=== PATIENT | female | born 1980 | race Caucasian/White ===

== ENCOUNTER 2016-08-21 01:56 | Observation (INO) | payer OTHER ==
[2016-08-21 02:37] LABS: Basophils # (A) 0.1 k/uL (0-0.2); Basophils % (A) 2 %; CH 27.8; CHCM 33.2; Eosinophils # (A) 0.1 k/uL (0-0.7); Eosinophils % (A) 2 %; HCT 44.8 % (34.0-46.0); HGB 14.4 gm/dL (11.4-16.0); Luc # (Auto) 0.22; Luc % (Auto) 4; Lymphocytes # (A) 0.8 k/uL (1.0-4.8); Lymphocytes % (A) 14 %; MCHC 32.1 g/dL (31.0-37.0); Mean Platelet Volume 9.2; Monocytes # (A) 0.3 k/uL (0-1.0); Monocytes % (A) 6 %; Neutrophils % (A) 73 %; RBC 5.33 m/uL (3.80-5.40); RDW 15.1 % (11.5-15.5); WBC 5.5 k/uL (3.8-10.6); WBC (Perox) 5.19
--- NOTE | 2016-08-21 02:43 | ED ---
Abdominal Pain HPI <Victoriano Bourgeois - Last Filed: 08/21/16 03:23> - General Source: patient, RN notes reviewed Mode of arrival: EMS Limitations: no limitations <Ashleigh Packer - Last Filed: 08/21/16 03:55> - General Chief Complaint: Abdominal Pain Stated Complaint: abd pain Time Seen by Provider: 08/21/16 02:10 - History of Present Illness Initial Comments: 35-year-old female presents to the emergency department with a chief complaint of abdominal pain. Patient states she has this right-sided abdominal pain. 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 Patient states last time she saw her GI doctor was about one year ago on her belly slowly been increasing in size. Patient states that she started noticing increased pain so she was concerned. Patient states beginning worse for the last few weeks. Patient states there is been no new falls traumas or injuries. Patient denies any fevers any nausea or vomiting. Patient states that she was concerned due to his increased symptoms that she thought that she should be evaluated.Patient denies any recent fever, chills, shortness of breath, chest pain, back pain, nausea vomiting, numbness or tingling, dysuria or hematuria, constipation or diarrhea, headaches or visual changes, or any other current symptoms. (Ashleigh Packer) - Related Data Home Medications Medication Instructions Recorded Confirmed Albuterol Inhaler [Ventolin Hfa 1 - 2 puff INHALATION RT-Q6H PRN 05/17/14 Inhaler] Levothyroxine Sodium [Synthroid] 75 mcg PO DAILY 07/09/15 08/21/16 Aspirin [Adult Low Dose Aspirin EC] 81 mg PO DAILY 07/12/15 08/21/16 Previous Rx's Medication Instructions Recorded Metoprolol Tartrate 12.5 mg PO BID #60 tab 03/23/15 Furosemide [Lasix] 40 mg PO BID@0900,1600 #60 tab 07/11/15 Spironolactone 50 mg PO BID #60 tablet 07/11/15 Allergies Allergy/AdvReac Type Severity Reaction Status Date / Time warfarin sodium Allergy Unknown Verified 08/21/16 02:08 [From Coumadin] peas AdvReac Diarrhea Verified 08/21/16 02:08 Review of Systems ROS Other: All systems not noted in ROS Statement are negative. <Victoriano Bourgeois - Last Filed: 08/21/16 03:23> ROS Other: All systems not noted in ROS Statement are negative. <Ashleigh Packer - Last Filed: 08/21/16 03:55> ROS Statement: Those systems with pertinent positive or pertinent negative responses have been documented in the HPI. 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 History of Any Multi-Drug Resistant Organisms: None Reported Past Surgical History: Coronary Bypass/CABG Additional Past Surgical History / Comment(s): D&C in November 2013, paracentesis, patient states her liver "went bad" after a miscarriage in 2013, Fontan 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 7 Past Anesthesia/Blood Transfusion Reactions: No Reported Reaction Past Psychological History: No Psychological Hx Reported Smoking Status: Never smoker Past Alcohol Use History: None Reported Past Drug Use History: None Reported - Past Family History Mother Family Medical History: Asthma, Cancer, Hyperlipidemia, Hypertension Additional Family Medical History / Comment(s): Mother had breast CA at age 52 Brother(s) Family Medical History: Asthma Father Family Medical History: Asthma <Ashleigh Packer - Last Filed: 08/21/16 03:55> General Exam Limitations: no limitations General appearance: alert, in no apparent distress Head exam: Present: atraumatic, normocephalic, normal inspection ENT exam: Present: normal exam, mucous membranes moist Neck exam: Present: normal inspection. Absent: tenderness, meningismus, lymphadenopathy Respiratory exam: Present: normal lung sounds bilaterally. Absent: respiratory distress, wheezes, rales, rhonchi, stridor Cardiovascular Exam: Present: regular rate, normal rhythm, normal heart sounds. Absent: systolic murmur, diastolic murmur, rubs, gallop, clicks GI/Abdominal exam: Present: distended, other (Diffuse ascites) Extremities exam: Present: normal inspection, full ROM, normal capillary refill. Absent: tenderness, pedal edema, joint swelling, calf tenderness Back exam: Present: normal inspection Neurological exam: Present: alert, oriented X3, CN II-XII intact. Absent: motor sensory deficit Psychiatric exam: Present: normal affect, normal mood Skin exam: Present: warm, dry, intact, normal color. Absent: rash <Ashleigh Packer - Last Filed: 08/21/16 03:55> Medical Decision Making - Lab Data Result diagrams: 08/21/16 02:26 08/21/16 02:26 <Victoriano Bourgeois - Last Filed: 08/21/16 03:23> - Lab Data Result diagrams: 08/21/16 02:26 08/21/16 02:26 - Radiology Data Radiology results: report reviewed, image reviewed <Ashleigh Packer - Last Filed: 08/21/16 03:55> - Medical Decision Making Patient reevaluated by myself, Dr. Bourgeois. Patient does have abdominal distention and ascites. Patient has mild discomfort in the right upper abdomen. Patient states she recently saw Dr. Marino and has been planning to see her twisting operator. Case was discussed in detail with Dr. Farah, who will admit for Dr. Marino with GI consult. (Victoriano Bourgeois) 35 as well as emergency department with a chief complaint of ascites with a distended abdomen. At this time due to the patient's continued ascites we will admit to Dr. Marino and we will consult on-call GI Dr. Wilkes. This is discussed the patient and she is in agreement. (Ashleigh Packer) - Lab Data Lab Results 08/21/16 08/21/16 Range/Units 02:26 02:26 WBC 5.5 (3.8-10.6) k/uL RBC 5.33 (3.80-5.40) m/uL Hgb 14.4 (11.4-16.0) gm/dL Hct 44.8 (34.0-46.0) % MCV 84.0 (80.0-100.0) fL MCH 27.0 (25.0-35.0) pg MCHC 32.1 (31.0-37.0) g/dL RDW 15.1 (11.5-15.5) % Plt Count 169 (150-450) k/uL Neutrophils % 73 % Lymphocytes % 14 % Monocytes % 6 % Eosinophils % 2 % Basophils % 2 % Neutrophils # 4.0 (1.3-7.7) k/uL Lymphocytes # 0.8 L (1.0-4.8) k/uL Monocytes # 0.3 (0-1.0) k/uL Eosinophils # 0.1 (0-0.7) k/uL Basophils # 0.1 (0-0.2) k/uL Sodium 140 (137-145) mmol/L Potassium 4.1 (3.5-5.1) mmol/L Chloride 100 (98-107) mmol/L Carbon Dioxide 24 (22-30) mmol/L Anion Gap 16 mmol/L BUN 15 (7-17) mg/dL Creatinine 1.00 (0.52-1.04) mg/dL Est GFR (MDRD) Af Amer >60 (>60 ml/min/1.73 sqM) Est GFR (MDRD) Non-Af >60 (>60 ml/min/1.73 sqM) Glucose 86 (74-99) mg/dL Calcium 9.5 (8.4-10.2) mg/dL Total Bilirubin 1.9 H (0.2-1.3) mg/dL AST 34 (14-36) U/L ALT 30 (9-52) U/L Alkaline Phosphatase 93 (38-126) U/L Total Protein 8.7 H (6.3-8.2) g/dL Albumin 4.7 (3.5-5.0) g/dL Amylase 50 (30-110) U/L Lipase 55 (23-300) U/L Disposition <Victoriano Bourgeois - Last Filed: 08/21/16 03:23> Time of Disposition: 03:25 Decision Date: 08/21/16 Decision Time: 03:25 <Ashleigh Packer - Last Filed: 08/21/16 03:55> Clinical Impression: Ascites, Cirrhosis, Portal hypertension Disposition: ADMITTED IP TO THIS [facility] Condition: Stable Referrals: Devaughn Marino MD [Primary Care Provider] - 1-2 days
[2016-08-21 02:50] LABS: ALT 30 U/L (9-52); AST 34 U/L (14-36); Alkaline Phosphatase 93 U/L (38-126); Amylase 50 U/L (30-110); Anion Gap 16 mmol/L; Blood Urea Nitrogen 15 mg/dL (7-17); Calcium 9.5 mg/dL (8.4-10.2); Carbon Dioxide 24 mmol/L (22-30); Chloride 100 mmol/L (98-107); Glucose 86 mg/dL (74-99); Non-African American GFR(MDRD) >60 (>60 ml/min/1.73 sqM); Potassium 4.1 mmol/L (3.5-5.1); Sodium 140 mmol/L (137-145); Total Bilirubin 1.9 mg/dL (0.2-1.3); Total Protein 8.7 g/dL (6.3-8.2)
--- NOTE | 2016-08-21 02:59 | CT ---
EXAMINATION TYPE: CT abdomen pelvis wo con DATE OF EXAM: 08/21/2016 2:45 AM COMPARISON: 03/21/2015 HISTORY: Abdominal pain CT DLP: 286.00 mGycm Automated exposure control for dose reduction was used. TECHNIQUE: Helical acquisition of images was performed from the lung bases through the pelvis. FINDINGS: LUNG BASES: Minor atelectatic changes are suggested in both lung bases. There is evidence of moderate ascites fluid in the abdomen and pelvis surrounding the liver and splee n with mild increase in the ascites fluid since previous study. Recanalized umbilical vein is again n oted. LIVER/GB: Cirrhosis changes of liver are suggested of chronic nature. There is possibility of portal hypertension changes. Gallbladder is not well visualized. PANCREAS: No significant abnormality is seen. SPLEEN: Mild splenomegaly is noted spleen measuring approximately 13.9 cm in the CC dimension in the coronal image 61. ADRENALS: No significant abnormality is seen. KIDNEYS: No significant abnormality is seen. RETROPERITONEAL ADENOPATHY: None visualized REPRODUCTIVE ORGANS: No significant abnormality is seen URINARY BLADDER: No significant abnormality is seen. PELVIC ADENOPATHY: None visualized. OSSEOUS STRUCTURES: No significant abnormality is seen. BOWEL: No significant abnormality is seen. OTHER: IMPRESSION: 1. THERE IS MODERATE ASCITES FLUID IN THE ABDOMEN AND PELVIS SLIGHTLY INCREASED SINCE PREVIOUS STUDY. 2. CIRRHOSIS CHANGES OF LIVER WITH PORTAL HYPERTENSION CHANGES. 3. Splenomegaly.
[2016-08-21] MEDS ORDERED: ONDANSETRON 4 MG/2 ML VIAL IVP PRN (03:25)
[2016-08-21] MEDS ORDERED: NALOXONE 0.4 MG/ML 1 ML VIAL IV PRN (03:25)
[2016-08-21] MEDS: IBUPROFEN 400 MG TAB PO PRN ×2 (03:55→11:51)
[2016-08-21] MEDS: SODIUM CHLORIDE 0.9% 1,000 ML IV SCH (04:30)
[2016-08-21 04:41] VITALS: BMI 22.3
[2016-08-21] MEDS ORDERED: SODIUM CHLORIDE 0.9% 1,000 ML IV ONE (07:47)
[2016-08-21] MEDS ORDERED: ALBUMIN HUMAN 25% 50 ML in EMPTY BAG 1 BAG IVPB PRN (07:48)
[2016-08-21 08:24] LABS: INR 1.3 (<1.1); Prothrombin Time 12.5 sec (9.0-12.0)
[2016-08-21] MEDS ORDERED: ALBUTEROL NEBULIZED 2.5 MG/3 ML INHALATION PRN (08:49)
[2016-08-21] MEDS: LEVOTHYROXINE 100 MCG TAB PO SCH (09:40)
--- NOTE | 2016-08-21 10:04 | US ---
EXAMINATION TYPE: US abdomen limited DATE OF EXAM: 08/21/2016 9:45 AM COMPARISON: CT abdomen and pelvis earlier this morning. CLINICAL HISTORY: assess fluid. Cirrhosis TECHNOLOGIST IMPRESSION: Moderate amount of ascites noted, all 4 quadrants scanned Limited abdominal ultrasound to assess for ascites confirms moderate to large amount of fluid most pr ominent in the left lower quadrant, findings correlate with CT exam earlier today. IMPRESSION: As above.
--- NOTE | 2016-08-21 12:04 | P.HPIM ---
History of Present Illness H&P Date: 08/21/16 Chief Complaint: Abdominal distention This is a 34-year-old female with complex past medical history noted below who presented to the hospital with worsening abdominal distention and pain. Patient is been doing fairly well up until a few days ago when she noted that her abdomen is getting more distended. She said that she's been having more pain that is mostly generalized all over her abdomen. She was also nauseated and vomited once yesterday. She denies any diarrhea. She reported taking her medication as prescribed. She denies fevers or chills. Review of Systems Review of system: 14 points review of systems were obtained and were negative except to what were mentioned in the HPI. 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 History of Any Multi-Drug Resistant Organisms: None Reported Past Surgical History: Coronary Bypass/CABG Additional Past Surgical History / Comment(s): D&C in November 2013, paracentesis, patient states her liver "went bad" after a miscarriage in 2013, Fontan 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 7 Past Anesthesia/Blood Transfusion Reactions: No Reported Reaction Past Psychological History: No Psychological Hx Reported Smoking Status: Never smoker Past Alcohol Use History: None Reported Past Drug Use History: None Reported - Past Family History Mother Family Medical History: Asthma, Cancer, Hyperlipidemia, Hypertension Additional Family Medical History / Comment(s): Mother had breast CA at age 52 Brother(s) Family Medical History: Asthma Father Family Medical History: Asthma Medications and Allergies Home Medications Medication Instructions Recorded Confirmed Type Albuterol Inhaler [Ventolin Hfa 1 - 2 puff INHALATION RT-Q6H PRN 05/17/14 History Inhaler] Levothyroxine Sodium [Synthroid] 100 mcg PO DAILY 07/09/15 08/21/16 History Aspirin [Adult Low Dose Aspirin EC] 81 mg PO DAILY@1400 07/12/15 08/21/16 History Ibuprofen [Motrin] 200 mg PO Q6HR PRN 08/21/16 08/21/16 History Spironolactone 50 mg PO DAILY@1400 08/21/16 08/21/16 History Allergies Allergy/AdvReac Type Severity Reaction Status Date / Time warfarin sodium Allergy Unknown Verified 08/21/16 07:59 [From Coumadin] peas AdvReac Diarrhea Verified 08/21/16 07:59 Physical Exam Vitals: Vital Signs Temp Pulse Pulse Pulse Resp BP BP 08/21/16 08:28 120 H 89/62 08/21/16 07:40 120 H 72/49 08/21/16 07:00 96.5 F L 120 H 20 80/45 08/21/16 05:00 98.0 F 92 08/21/16 04:49 16 08/21/16 04:42 97.5 F L 122 H 16 88/68 08/21/16 03:54 80 16 86/54 Pulse Ox 08/21/16 08:28 08/21/16 07:40 92 L 08/21/16 07:00 91 L 08/21/16 05:00 08/21/16 04:49 08/21/16 04:42 92 L 08/21/16 03:54 97 Intake and Output 08/20/16 08/21/16 08/21/16 22:59 06:59 14:59 Other: Voiding Method Toilet Toilet Weight 50 kg General: The patient is awake and alert, in no distress, and does not appear acutely ill. Eye: extra-ocular movements are intact; there is normal conjunctiva bilaterally. . Neck: The neck is supple, there is no tenderness or JVD. Cardiovascular: Normal S1-S2, no S3-S4, no murmurs. Respiratory: Lungs clear to auscultation bilaterally with no wheezes rhonchi or rales. Gastrointestinal: Abdomen is distended with evidence of large ascites and fluid shifting Musculoskeletal: Normal ROM, no tenderness, There is no pedal edema. Neurological: There are no obvious motor or sensory deficits. Speech is normal. Skin: Skin is warm and dry and no rashes or lesions are noted. 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 She is currently awaiting paracentesis to rule out SBP. She reports compliance with her medication at home and was counseled extensively about that. All her other medical problems are stable at this point. I would wait for fluid analysis to make decision about antibiotic treatment if needed. Allow patient to have liquid diet and advance as tolerated. (1) Ascites (2) Congenital heart anomaly (3) H/O aortic valve repair (4) Hypothyroid (5) Atrial flutter (6) Cardiac cirrhosis (7) Legal guardianship (8) Tricuspid atresia Patient is known to have chronic low blood pressure and her systolic usually runs in the 80s and 90s.
[2016-08-21] MEDS: ASPIRIN 81 MG CHEW PO SCH (14:00)
--- NOTE | 2016-08-21 15:38 | US ---
EXAMINATION TYPE: US paracentesis abd w/image DATE OF EXAM: 08/21/2016 3:28 PM CLINICAL HISTORY: Ascites The procedure was discussed with the patient. The risks, complications, benefits, and alternatives we re discussed and any questions were answered. Informed consent was obtained. The patient was placed s upine on the ultrasound table and prepped and draped in the usual sterile fashion. All elements of maximal barrier technique were utilized. Under ultrasound guidance, access into the right lower quadrant was obtained, via the paracentesis catheter system and direct ultrasound guidanc e. Approximately 3.8 liters of straw-colored fluid was removed. The patient was stable throughout the pr ocedure and remained stable upon discharge from Department of Radiology. IMPRESSION: Successful therapeutic paracentesis under ultrasound guidance.
[2016-08-21 16:57] LABS: RBC, Body Fluid 1061 /uL
[2016-08-22] MEDS: METOPROLOL TARTRATE 25 MG TAB PO SCH ×2 (01:01→09:39)
[2016-08-22] MEDS: SODIUM CHLORIDE 0.9% 1,000 ML IV SCH (06:26)
[2016-08-22] MEDS: LEVOTHYROXINE 100 MCG TAB PO SCH (06:48)
[2016-08-22 08:05] LABS: Basophils % (A) 1 %; CHCM 31.3; Eosinophils # (A) 0.1 k/uL (0-0.7); Eosinophils % (A) 3 %; HCT 41.3 % (34.0-46.0); HDW 2.66; HGB 12.9 gm/dL (11.4-16.0); Hypochromasia Slight; Luc # (Auto) 0.11; Luc % (Auto) 3; Lymphocytes # (A) 0.4 k/uL (1.0-4.8); Lymphocytes % (A) 12 %; MCH 27.1 pg (25.0-35.0); MCHC 31.2 g/dL (31.0-37.0); MCV 86.9 fL (80.0-100.0); Mean Platelet Volume 8.1; Monocytes # (A) 0.2 k/uL (0-1.0); Monocytes % (A) 6 %; Neutrophils % (A) 76 %; RBC 4.75 m/uL (3.80-5.40); RDW 14.8 % (11.5-15.5); WBC 3.9 k/uL (3.8-10.6); WBC (Perox) 4.03
[2016-08-22 08:16] LABS: ALT 30 U/L (9-52); AST 19 U/L (14-36); Alkaline Phosphatase 61 U/L (38-126); Anion Gap 9 mmol/L; Blood Urea Nitrogen 14 mg/dL (7-17); Calcium 7.9 mg/dL (8.4-10.2); Carbon Dioxide 21 mmol/L (22-30); Chloride 107 mmol/L (98-107); Glucose 71 mg/dL (74-99); Non-African American GFR(MDRD) >60 (>60 ml/min/1.73 sqM); Potassium 3.9 mmol/L (3.5-5.1); Sodium 137 mmol/L (137-145); Total Bilirubin 1.1 mg/dL (0.2-1.3); Total Protein 5.8 g/dL (6.3-8.2)
[2016-08-22 09:48] VITALS: RESP 16; TEMP 96.6
[2016-08-22 12:56] VITALS: BP 83/53; PULSE 128
[2016-08-22] MEDS: ASPIRIN 81 MG CHEW PO SCH (12:57)
[2016-08-22] MEDS: IBUPROFEN 400 MG TAB PO PRN (14:04)
--- NOTE | 2016-08-22 14:08 | P.DS ---
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 She was admitted to the hospital and underwent therapeutic paracentesis with approximately 3.8 L removed and no evidence of SBP. Patient will be discharged home in a stable condition. She was advised about the importance of medication compliance. (1) Ascites (2) Congenital heart anomaly (3) H/O aortic valve repair (4) Hypothyroid (5) Atrial flutter (6) Cardiac cirrhosis (7) Legal guardianship (8) Tricuspid atresia Patient Condition at Discharge: Stable Plan - Discharge Summary Discharge Medication List Albuterol Inhaler [Ventolin Hfa Inhaler] 1 - 2 puff INHALATION RT-Q6H PRN [History] Metoprolol Tartrate 12.5 mg PO BID #60 tab 03/23/15 [Rx] Levothyroxine Sodium [Synthroid] 100 mcg PO DAILY 07/09/15 [History] Furosemide [Lasix] 40 mg PO BID@0900,1600 #60 tab 07/11/15 [Rx] Aspirin [Adult Low Dose Aspirin EC] 81 mg PO DAILY@1400 07/12/15 [History] Ibuprofen [Motrin] 200 mg PO Q6HR PRN 08/21/16 [History] Spironolactone 50 mg PO DAILY@1400 08/21/16 [History] Follow up Appointment(s)/Referral(s): Devaughn Marino MD [Primary Care Provider] - 1-2 days Discharge Disposition: HOME SELF-CARE
[2016-08-22] MEDS ORDERED: BUTA/APAP/CAF/COD 50-325-40-30 CAP PO STA (14:49)
[2016-08-24 11:52] LABS: Body Fluid Comment Many Mesothelial
== END 2016-08-22 15:29 | disposition home or self-care (01) ==
LOC: EC 01:56 → 4MS4W 03:47
PROVIDERS: ADMIT Internal Medicine; ATTEND Internal Medicine
DX: R18.8 Other ascites (principal); K76.1 Chronic passive congestion of liver; E03.9 Hypothyroidism, unspecified; J45.909 Unspecified asthma, uncomplicated; Q22.4 Congenital tricuspid stenosis; Z79.82 Long term (current) use of aspirin; Z82.49 Family history of ischemic heart disease and other diseases of the circulatory system; Z95.1 Presence of aortocoronary bypass graft; Z79.899 Other long term (current) drug therapy; Z79.890 Hormone replacement therapy; Z88.8 Allergy status to other drugs, medicaments and biological substances; I48.92 Unspecified atrial flutter; I95.89 Other hypotension
CPT/HCPCS: 99285 ×2; 36415; 94640; 93005; 88108; 88305; 80053 ×2; 89050; 82150; 83690; 85025 ×2; 85610; 87070; 87205; 87075; 76705; 49083; 74176; G0378 ×2; P9047

== ENCOUNTER 2016-08-30 22:04 | Observation (INO) | payer OTHER ==
[2016-08-30 23:03] LABS: Basophils % (A) 0 %; CH 27.2; CHCM 31.9; Eosinophils # (A) 0.2 k/uL (0-0.7); Eosinophils % (A) 4 %; HCT 44.2 % (34.0-46.0); HDW 2.68; HGB 13.9 gm/dL (11.4-16.0); Luc # (Auto) 0.07; Luc % (Auto) 1; Lymphocytes # (A) 0.7 k/uL (1.0-4.8); Lymphocytes % (A) 14 %; MCH 27.1 pg (25.0-35.0); MCHC 31.6 g/dL (31.0-37.0); MCV 85.7 fL (80.0-100.0); Mean Platelet Volume 8.2; Monocytes # (A) 0.2 k/uL (0-1.0); Monocytes % (A) 4 %; Neutrophils # (A) 3.8 k/uL (1.3-7.7); Neutrophils % (A) 76 %; RBC 5.15 m/uL (3.80-5.40); RDW 15.3 % (11.5-15.5); WBC (Perox) 5.27
[2016-08-30 23:09] LABS: Appearance,Urine Clear (Clear); Bacteria,Urine Rare /hpf; Bilirubin,Urine Negative (Negative); Glucose,Urine (UA) Negative (Negative); Ketones,Urine Negative (Negative); Leukocyte Esterase,Urine Negative (Negative); Mucus,Urine Occasional /hpf; Nitrite,Urine Negative (Negative); Particle Count 5951; Protein,Urine 1+ (Negative); RBC,Urine 9 /hpf (0-5); Specific Gravity,Urine 1.022 (1.001-1.035); Squamous Epithelial Cell,Urine 5 /hpf (0-4); UA Billing (MACRO vs. MICRO) MICRO; WBC,Urine 5 /hpf (0-5)
--- NOTE | 2016-08-30 23:10 | ED ---
General Adult HPI - General Chief complaint: Urogenital Stated complaint: Abd Pain Time Seen by Provider: 08/30/16 22:19 Source: patient, RN notes reviewed, old records reviewed Mode of arrival: ambulatory Limitations: no limitations - History of Present Illness Initial comments: Patient is a 35-year-old female she complaint of lower pelvic pain and feeling a pressure for the past day. Patient reports that she has a history of ascites and has significant abdominal distention. She was discharged one week ago after they drained 3.8 L of fluid from her abdomen. Patient reports that she feels that the fluid has re-collected and is now causing significant distention. reports that she is concerned that she is possibly as this is a similar feeling of the lower pelvic pain that she's had a previous pregnancies. She states that she has not had a period since January. She reports that she has not followed up with a physician in regards to why this is occurring. Patient reports that she's had a dark urine over the past 2 days. She denies any vaginal discharge, but reports her might be some slight bleeding. She denies any fever or chills. She states that she does not have a scheduled follow-up paracentesis procedures in the near future. She states that she's never followed up with her GI specialist from the past few years after having this liver failure. She reports that she's had this liver failure for the past 2 years after a miscarriage. Patient denies any recent fever, chills, shortness of breath, chest pain, back pain, nausea vomiting, numbness or tingling, dysuria or constipation or diarrhea, headaches or visual changes, or any other current symptoms - Related Data Home Medications Medication Instructions Recorded Confirmed Albuterol Inhaler [Ventolin Hfa 1 - 2 puff INHALATION RT-Q6H PRN 05/17/14 Inhaler] Levothyroxine Sodium [Synthroid] 100 mcg PO DAILY 07/09/15 08/31/16 Aspirin [Adult Low Dose Aspirin EC] 81 mg PO DAILY@1400 07/12/15 08/31/16 Ibuprofen [Motrin] 200 mg PO Q6HR PRN 08/21/16 08/31/16 Spironolactone 50 mg PO DAILY@1400 08/21/16 08/31/16 Previous Rx's Medication Instructions Recorded Metoprolol Tartrate 12.5 mg PO BID #60 tab 03/23/15 Furosemide [Lasix] 40 mg PO BID@0900,1600 #60 tab 07/11/15 Allergies Allergy/AdvReac Type Severity Reaction Status Date / Time warfarin sodium Allergy Unknown Verified 08/30/16 22:10 [From Coumadin] peas AdvReac Diarrhea Verified 08/30/16 22:10 Review of Systems ROS Statement: Those systems with pertinent positive or pertinent negative responses have been documented in the HPI. ROS Other: All systems not noted in ROS Statement are negative. 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 7 Past Anesthesia/Blood Transfusion Reactions: No Reported Reaction Past Psychological History: No Psychological Hx Reported Smoking Status: Never smoker Past Alcohol Use History: None Reported Past Drug Use History: None Reported - Past Family History Mother Family Medical History: Asthma, Cancer, Hyperlipidemia, Hypertension Additional Family Medical History / Comment(s): Mother had breast CA at age 52 Brother(s) Family Medical History: Asthma Father Family Medical History: Asthma General Exam - General Exam Comments Initial Comments: Patient is a 35-year-old female. She doesn't appear to be in any acute distress. Patient is a short stature. Limitations: no limitations General appearance: alert, in no apparent distress Head exam: Present: atraumatic, normocephalic, normal inspection Eye exam: Present: normal appearance, PERRL, EOMI. Absent: scleral icterus, conjunctival injection, periorbital swelling ENT exam: Present: normal exam, normal oropharynx, mucous membranes moist, TM's normal bilaterally Neck exam: Present: normal inspection. Absent: tenderness, meningismus, lymphadenopathy Respiratory exam: Present: normal lung sounds bilaterally. Absent: respiratory distress, wheezes, rales, rhonchi, stridor Cardiovascular Exam: Present: regular rate, normal rhythm, normal heart sounds. Absent: systolic murmur, diastolic murmur, rubs, gallop, clicks GI/Abdominal exam: Present: soft, distended (Pt significant abdominal distention due to ascites.), normal bowel sounds. Absent: tenderness, guarding , rebound, rigid External exam: Present: normal external exam. Absent: erythema, swelling Speculum exam: Present: vaginal bleeding (Patient has evidence of vaginal bleeding and slight bleeding from the cervical os. This be consistent with a menstrual cycle.). Absent: normal speculum exam By manual exam: Present: normal by manual exam. Absent: cervical motion tenderness, adnexal tenderness, adnexal mass, uterine enlargement, uterine tenderness Extremities exam: Present: normal inspection, full ROM, normal capillary refill. Absent: tenderness, pedal edema, joint swelling, calf tenderness Back exam: Present: normal inspection Neurological exam: Present: alert, oriented X3, CN II-XII intact Psychiatric exam: Present: normal affect, normal mood Skin exam: Present: warm, dry, intact, normal color. Absent: rash Course Vital Signs 08/30/16 08/30/16 08/31/16 22:05 23:59 01:00 Temperature 98.0 F 97.9 F 97.1 F L Pulse Rate 84 82 81 Respiratory 20 18 18 Rate Blood Pressure 113/76 92/50 93/65 O2 Sat by Pulse 95 94 L 95 Oximetry Medical Decision Making - Medical Decision Making Patient is a 35-year-old female she complaint of lower pelvic pain and feeling a pressure for the past day. Patient reports that she has a history of ascites and has significant abdominal distention. She was discharged one week ago after they drained 3.8 L of fluid from her abdomen. Patient reports that she feels that the fluid has re-collected and is now causing significant distention. PAtient reports that she is concerned that she is possibly as this is a similar feeling of the lower pelvic pain that she's had a previous pregnancies. She states that she has not had a period since January. She reports that she has not followed up with a physician in regards to why this is occurring. Patient is given a saline lock and labs are obtained. Labs show no evidence of any acute process. Patient is significantly distended in her abdomen. Vaginal exam was performed and there is evidence of bleeding this would be consistent with menstrual cycle. Patient had no cervical tenderness and no evidence of any uterine enlargement or Ovarian tenderness. Patient reports that she does have a follow-up appointment tomorrow with Dr. Marino. I discussed this case with Dr. Sutherland. Given patient's history of noncompliance an extensive abdominal distention with discomfort, we believe it is best if she is admitted at this time. It is possible the patient might undergo a paracentesis tomorrow. Patient understands treatment plan will comply. - Lab Data Result diagrams: 08/30/16 22:50 08/30/16 22:50 Lab Results 08/30/16 08/30/16 08/30/16 Range/Units 22:50 22:50 22:50 WBC 5.0 (3.8-10.6) k/uL RBC 5.15 (3.80-5.40) m/uL Hgb 13.9 (11.4-16.0) gm/dL Hct 44.2 (34.0-46.0) % MCV 85.7 (80.0-100.0) fL MCH 27.1 (25.0-35.0) pg MCHC 31.6 (31.0-37.0) g/dL RDW 15.3 (11.5-15.5) % Plt Count 133 L (150-450) k/uL Neutrophils % 76 % Lymphocytes % 14 % Monocytes % 4 % Eosinophils % 4 % Basophils % 0 % Neutrophils # 3.8 (1.3-7.7) k/uL Lymphocytes # 0.7 L (1.0-4.8) k/uL Monocytes # 0.2 (0-1.0) k/uL Eosinophils # 0.2 (0-0.7) k/uL Basophils # 0.0 (0-0.2) k/uL PT (9.0-12.0) sec INR (<1.1) APTT (22.0-30.0) sec Sodium 139 (137-145) mmol/L Potassium 4.6 (3.5-5.1) mmol/L Chloride 110 H (98-107) mmol/L Carbon Dioxide 20 L (22-30) mmol/L Anion Gap 9 mmol/L BUN 13 (7-17) mg/dL Creatinine 0.80 (0.52-1.04) mg/dL Est GFR (MDRD) Af Amer >60 (>60 ml/min/1.73 sqM) Est GFR (MDRD) Non-Af >60 (>60 ml/min/1.73 sqM) Glucose 92 (74-99) mg/dL Calcium 8.8 (8.4-10.2) mg/dL Total Bilirubin 1.1 (0.2-1.3) mg/dL AST 35 (14-36) U/L ALT 21 (9-52) U/L Alkaline Phosphatase 86 (38-126) U/L Total Protein 6.8 (6.3-8.2) g/dL Albumin 3.6 (3.5-5.0) g/dL Urine Color Urine Appearance (Clear) Urine pH (5.0-8.0) Ur Specific Liguori (1.001-1.035) Urine Protein (Negative) Urine Glucose (UA) (Negative) Urine Ketones (Negative) Urine Blood (Negative) Urine Nitrate (Negative) Urine Bilirubin (Negative) Urine Urobilinogen (<2.0) mg/dL Ur Leukocyte Esterase (Negative) Urine RBC (0-5) /hpf Urine WBC (0-5) /hpf Ur Squamous Epith Cells (0-4) /hpf Urine Bacteria (None) /hpf Hyaline Casts (0-2) /lpf Urine Mucus (None) /hpf Urine HCG, Qual Not Detected (Not Detectd) Trichomonas Ag (Rapid) (Negative) 08/30/16 08/30/16 08/30/16 Range/Units 22:50 22:50 23:15 WBC (3.8-10.6) k/uL RBC (3.80-5.40) m/uL Hgb (11.4-16.0) gm/dL Hct (34.0-46.0) % MCV (80.0-100.0) fL MCH (25.0-35.0) pg MCHC (31.0-37.0) g/dL RDW (11.5-15.5) % Plt Count (150-450) k/uL Neutrophils % % Lymphocytes % % Monocytes % % Eosinophils % % Basophils % % Neutrophils # (1.3-7.7) k/uL Lymphocytes # (1.0-4.8) k/uL Monocytes # (0-1.0) k/uL Eosinophils # (0-0.7) k/uL Basophils # (0-0.2) k/uL PT 12.6 H (9.0-12.0) sec INR 1.3 (<1.1) APTT 25.1 (22.0-30.0) sec Sodium (137-145) mmol/L Potassium (3.5-5.1) mmol/L Chloride (98-107) mmol/L Carbon Dioxide (22-30) mmol/L Anion Gap mmol/L BUN (7-17) mg/dL Creatinine (0.52-1.04) mg/dL Est GFR (MDRD) Af Amer (>60 ml/min/1.73 sqM) Est GFR (MDRD) Non-Af (>60 ml/min/1.73 sqM) Glucose (74-99) mg/dL Calcium (8.4-10.2) mg/dL Total Bilirubin (0.2-1.3) mg/dL AST (14-36) U/L ALT (9-52) U/L Alkaline Phosphatase (38-126) U/L Total Protein (6.3-8.2) g/dL Albumin (3.5-5.0) g/dL Urine Color Yellow Urine Appearance Clear (Clear) Urine pH 6.0 (5.0-8.0) Ur Specific Liguori 1.022 (1.001-1.035) Urine Protein 1+ H (Negative) Urine Glucose (UA) Negative (Negative) Urine Ketones Negative (Negative) Urine Blood Large H (Negative) Urine Nitrate Negative (Negative) Urine Bilirubin Negative (Negative) Urine Urobilinogen 3.0 (<2.0) mg/dL Ur Leukocyte Esterase Negative (Negative) Urine RBC 9 H (0-5) /hpf Urine WBC 5 (0-5) /hpf Ur Squamous Epith Cells 5 H (0-4) /hpf Urine Bacteria Rare H (None) /hpf Hyaline Casts 1 (0-2) /lpf Urine Mucus Occasional H (None) /hpf Urine HCG, Qual (Not Detectd) Trichomonas Ag (Rapid) Negative (Negative) Disposition Clinical Impression: Liver cirrhosis, Ascites, Menstruation Disposition: ADMITTED IP TO THIS HOSP Condition: Stable Time of Disposition: 00:33
[2016-08-30 23:13] LABS: INR 1.3 (<1.1); Partial Thromboplastin Time 25.1 sec (22.0-30.0); Prothrombin Time 12.6 sec (9.0-12.0)
[2016-08-30 23:21] LABS: Anion Gap 9 mmol/L; Calcium 8.8 mg/dL (8.4-10.2); Carbon Dioxide 20 mmol/L (22-30); Chloride 110 mmol/L (98-107); Glucose 92 mg/dL (74-99); Non-African American GFR(MDRD) >60 (>60 ml/min/1.73 sqM); Sodium 139 mmol/L (137-145); Total Bilirubin 1.1 mg/dL (0.2-1.3); Total Protein 6.8 g/dL (6.3-8.2)
[2016-08-30 23:35] LABS: Potassium 4.6 mmol/L (3.5-5.1)
[2016-08-30 23:37] LABS: Blood Urea Nitrogen 13 mg/dL (7-17)
[2016-08-30 23:38] LABS: ALT 21 U/L (9-52); AST 35 U/L (14-36); Alkaline Phosphatase 86 U/L (38-126)
[2016-08-30] MEDS ORDERED: KETOROLAC 30 MG/ML 1 ML VIAL IVP STA (23:51)
[2016-08-31] MEDS ORDERED: ALPRAZolam 0.25 MG TAB PO PRN (00:33)
[2016-08-31] MEDS ORDERED: ONDANSETRON 4 MG/2 ML VIAL IVP PRN (00:33)
[2016-08-31 01:48] VITALS: BMI 24.7
[2016-08-31] MEDS: LEVOTHYROXINE 100 MCG TAB PO SCH (07:47)
[2016-08-31] MEDS: METOPROLOL TARTRATE 12.5 MG TAB PO SCH ×2 (09:41→19:22)
[2016-08-31] MEDS: FUROSEMIDE 40 MG TAB PO SCH ×2 (09:42→16:32)
[2016-08-31] MEDS: SODIUM CHLORIDE 0.45% 1,000 ML IV SCH ×3 (10:33→22:01)
--- NOTE | 2016-08-31 13:40 | P.HPIM ---
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 She presented to the hospital with worsening abdominal pain and abdominal ascites. She was just discharged from the hospital a week ago on . At that time she had undergone therapeutic paracentesis with approximately 3.8 L removed and no evidence of SBP. Patient was discharged home. Patient reports that she did not take her medications as prescribed because she thought she was . Since she had been about a week without her home medications. Her abdomen began to become more distended and painful. Patient is known to be noncompliant with her appointments as well as taking her medications. Interventional radiology has been consulted for paracentesis. Patient denies any fevers chills or sweats. Denies any nausea or vomiting. Bowel movement have been regular. Denies any difficult urinating. She is currently started her menstrual cycle. test was negative. Review of Systems Please refer to HPI otherwise unremarkable 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 7 Past Anesthesia/Blood Transfusion Reactions: No Reported Reaction Past Psychological History: No Psychological Hx Reported Smoking Status: Never smoker Past Alcohol Use History: None Reported Past Drug Use History: None Reported - Past Family History Mother Family Medical History: Asthma, Cancer, Hyperlipidemia, Hypertension Additional Family Medical History / Comment(s): Mother had breast CA at age 52 Brother(s) Family Medical History: Asthma Father Family Medical History: Asthma Medications and Allergies Home Medications Medication Instructions Recorded Confirmed Type Albuterol Inhaler [Ventolin Hfa 1 - 2 puff INHALATION RT-Q6H PRN 05/17/ History Inhaler] Aspirin [Adult Low Dose Aspirin EC] 81 mg PO DAILY@1400 07/12/15 08/31/16 History Ibuprofen [Motrin] 200 mg PO Q6HR PRN 08/21/16 08/31/16 History Spironolactone 50 mg PO DAILY@1400 08/21/16 08/31/16 History Levothyroxine Sodium [Synthroid] 100 mcg PO DAILY 08/31/16 08/31/16 History Allergies Allergy/AdvReac Type Severity Reaction Status Date / Time warfarin sodium Allergy Unknown Verified 08/31/16 08:02 [From Coumadin] peas AdvReac Diarrhea Verified 08/31/16 08:02 Physical Exam Vitals: Vital Signs Temp Pulse Pulse Pulse Resp BP BP 08/31/16 12:36 110 H 18 82/53 08/31/16 09:20 80 08/31/16 07:45 97.4 F L 80 16 93/64 08/31/16 01:00 97.1 F L 81 18 93/65 Pulse Ox 08/31/16 12:36 96 08/31/16 09:20 08/31/16 07:45 93 L 08/31/16 01:00 95 Intake and Output 08/30/16 08/31/16 08/31/16 22:59 06:59 14:59 Intake Total 240 120 Output Total 200 Balance 240 -80 Intake: Oral 240 120 Output: Urine 200 Other: Voiding Method Toilet # Voids 1 Weight 57.4 kg 58.4 kg Patient Weight 09/01/16 06:59 Weight 58.4 kg Head normocephalic Neck supple Lungs clear to auscultation bilaterally no wheezing or crackles Heart regular rate and rhythm S1-S2, no rub or gallop Abdomen is distended positive ascites positive bowel sounds Extremities no edema Neuro alert and orientated to 3 Results CBC & Chem 7: 08/30/16 22:50 08/30/16 22:50 Thrombosis Risk Factor Assmnt - Choose All That Apply Any of the Below Risk Factors Present?: No Other Risk Factors: No Other congenital or acquired thrombophilia - If yes, enter type in comment: No Thrombosis Risk Factor Assessment Level: Very Low Risk Assessment and Plan Plan: 1. Abdominal ascites with a known history of cardiogenic liver cirrhosis. Patient has been noncompliant with her medications. Interventional radiology has been consulted for paracentesis. Last paracentesis was about a week ago with 3.8 L removed. 2. 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 Hypothyroidism 4. Atrial flutter 5. History of aortic valve repair DVT prophylaxis SCDs Anticipate discharge home possibly tomorrow. Time with Patient: Greater than 30 (Greater than 50% of the total time spent in counseling and coordination of care.I performed an examination of the patient and discussed their management with the physician Catalog Specialist. I have reviewed the Physician Catalog Specialist's notes and agree with the documented findings and plan of care)
[2016-08-31] MEDS: ASPIRIN 81 MG CHEW PO SCH (14:14)
[2016-08-31] MEDS: SPIRONOLACTONE 25 MG TAB PO SCH (14:18)
[2016-08-31] MEDS ORDERED: MINERAL OIL-WHITE PETROLATUM 120 GM JAR TOPICAL PRN (14:39)
[2016-08-31] MEDS: IPRATROPIUM-ALBUTEROL 3 ML NEB INHALATION SCH ×2 (16:31→20:32)
--- NOTE | 2016-08-31 16:55 | XR ---
EXAMINATION TYPE: XR chest 2V DATE OF EXAM: 08/31/2016 4:25 PM COMPARISON: Prior chest x-ray July 2015 HISTORY: Wheezing, chest pain and shortness of breath TECHNIQUE: Frontal and lateral views of the chest are obtained. FINDINGS: Patient is post median sternotomy. The heart is enlarged. Central vascularity and intersti tium are increased. No evident pneumothorax or pleural effusion. There may be some early basilar airs pace disease. IMPRESSION: Difficult to exclude pulmonary venous hypertension and interstitial edema. Pneumonia not excluded, follow-up as indicated.
[2016-08-31] MEDS: MORPHINE SULFATE 4 MG/ML SYRINGE IV PRN (19:13)
[2016-08-31] MEDS ORDERED: METOPROLOL TARTRATE 25 MG TAB PO STA (19:17)
[2016-09-01] MEDS: MORPHINE SULFATE 4 MG/ML SYRINGE IV PRN (05:55)
[2016-09-01 06:34] LABS: ALT 24 U/L (9-52); AST 23 U/L (14-36); Alkaline Phosphatase 60 U/L (38-126); Anion Gap 7 mmol/L; Blood Urea Nitrogen 11 mg/dL (7-17); Calcium 7.9 mg/dL (8.4-10.2); Carbon Dioxide 25 mmol/L (22-30); Chloride 103 mmol/L (98-107); Glucose 70 mg/dL (74-99); Non-African American GFR(MDRD) >60 (>60 ml/min/1.73 sqM); Potassium 4.2 mmol/L (3.5-5.1); Sodium 135 mmol/L (137-145); Total Bilirubin 0.8 mg/dL (0.2-1.3); Total Protein 5.8 g/dL (6.3-8.2)
[2016-09-01 06:51] LABS: Basophils # (A) 0.1 k/uL (0-0.2); Basophils % (A) 3 %; CH 27.5; CHCM 31.3; Eosinophils # (A) 0.2 k/uL (0-0.7); Eosinophils % (A) 5 %; HCT 44.4 % (34.0-46.0); HDW 2.63; HGB 13.8 gm/dL (11.4-16.0); Hypochromasia Slight; Luc # (Auto) 0.06; Luc % (Auto) 1; Lymphocytes # (A) 0.5 k/uL (1.0-4.8); Lymphocytes % (A) 10 %; MCH 27.6 pg (25.0-35.0); MCHC 31.2 g/dL (31.0-37.0); MCV 88.4 fL (80.0-100.0); Mean Platelet Volume 8.9; Monocytes # (A) 0.3 k/uL (0-1.0); Monocytes % (A) 7 %; Neutrophils # (A) 3.8 k/uL (1.3-7.7); Neutrophils % (A) 76 %; RBC 5.02 m/uL (3.80-5.40); RDW 15.4 % (11.5-15.5); WBC 5.1 k/uL (3.8-10.6); WBC (Perox) 5.07
[2016-09-01] MEDS: SODIUM CHLORIDE 0.45% 1,000 ML IV SCH ×2 (06:56→09:29)
[2016-09-01] MEDS: IPRATROPIUM-ALBUTEROL 3 ML NEB INHALATION SCH ×4 (08:39→20:09)
[2016-09-01] MEDS: LEVOTHYROXINE 100 MCG TAB PO SCH (09:32)
[2016-09-01] MEDS: METOPROLOL TARTRATE 12.5 MG TAB PO SCH ×2 (09:32→20:22)
[2016-09-01] MEDS: FUROSEMIDE 40 MG TAB PO SCH ×2 (09:32→16:12)
--- NOTE | 2016-09-01 10:31 | P.CONS ---
History of Present Illness - Reason for Consult Consult date: 09/01/16 ascites Requesting physician: Devaughn Marino - History of Present Illness 35-year-old female patient Dr. 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 Admitted last week with recurrent ascites status post paracentesis with 3.8 L removal. Cytology negative for malignant cells. Upon discharge she did not continue diuretics for concern she may be . HCG not detected. Readmitted with recurrent ascites. White count 5.1. Hemoglobin 13.8. Platelet 136. INR 1.3. Liver chemistries within normal limits. Review of Systems Constitutional: Denies fever, chills, sweats, weight gain, or loss. HEENT: Negative for migraines, blurred vision or loss, earaches, drainage, tinnitus, oral mucosal lesions, dysphagia, or odynophagia. CARDIAC: Congenital heart disease with fontan procedure. History of arrhythmias and palpitation. RESPIRATORY: Negative for shortness of breath, hemoptysis, cough, or sputum production. GI: See HPI for pertinent findings. : Negative for hematuria, urgency, frequency, polyuria, or dysuria. GYNc: Denies possibility of . Negative vaginal discharge. MUSCULOSKELETAL: Negative for muscle aches, swelling, arthritis, and arthralgias. NEUROLOGIC: Negative for stroke or TIA. ENDOCRINE: Hypothyroidism.. SKIN: Negative for rash or itching. PSYCHIATRIC: Negative history for depression and anxiety All systems: negative (See HPI) 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 7 Past Anesthesia/Blood Transfusion Reactions: No Reported Reaction Past Psychological History: No Psychological Hx Reported Smoking Status: Never smoker Past Alcohol Use History: None Reported Past Drug Use History: None Reported - Past Family History Mother Family Medical History: Asthma, Cancer, Hyperlipidemia, Hypertension Additional Family Medical History / Comment(s): Mother had breast CA at age 52 Brother(s) Family Medical History: Asthma Father Family Medical History: Asthma Medications and Allergies Home Medications Medication Instructions Recorded Confirmed Type Albuterol Inhaler [Ventolin Hfa 1 - 2 puff INHALATION RT-Q6H PRN 05/17/14 History Inhaler] Aspirin [Adult Low Dose Aspirin EC] 81 mg PO DAILY@1400 07/12/15 08/31/16 History Ibuprofen [Motrin] 200 mg PO Q6HR PRN 08/21/16 08/31/16 History Spironolactone 50 mg PO DAILY@1400 08/21/16 08/31/16 History Levothyroxine Sodium [Synthroid] 100 mcg PO DAILY 08/31/16 08/31/16 History Allergies Allergy/AdvReac Type Severity Reaction Status Date / Time warfarin sodium Allergy Unknown Verified 08/31/16 08:02 [From Coumadin] peas AdvReac Diarrhea Verified 08/31/16 08:02 Physical Exam Vitals: Vital Signs Temp Pulse Pulse Pulse Pulse Pulse Pulse 09/01/16 08:54 100 09/01/16 08:45 102 H 09/01/16 08:00 97 F L 102 H 09/01/16 03:01 77 80 76 09/01/16 02:57 97.7 F 77 80 76 09/01/16 00:00 97.7 F 89 08/31/16 20:47 100 08/31/16 20:33 100 08/31/16 20:24 79 08/31/16 18:50 118 H 08/31/16 18:41 97.7 F 118 H 08/31/16 16:42 90 08/31/16 16:34 90 08/31/16 15:48 97.7 F 88 08/31/16 15:31 88 08/31/16 14:29 97.6 F 92 08/31/16 12:36 110 H Resp BP BP BP BP Pulse Ox 09/01/16 08:54 09/01/16 08:45 09/01/16 08:00 16 95/64 94 L 09/01/16 03:01 16 09/01/16 02:57 16 103/74 98/72 98/71 94 L 09/01/16 00:00 16 86/50 90 L 08/31/16 20:47 08/31/16 20:33 08/31/16 20:24 16 104/54 95 08/31/16 18:50 16 08/31/16 18:41 16 107/76 95 08/31/16 16:42 08/31/16 16:34 08/31/16 15:48 16 96/55 94 L 08/31/16 15:31 18 95 08/31/16 14:29 16 99/58 08/31/16 12:36 18 82/53 96 Intake and Output 08/31/16 09/01/16 09/01/16 22:59 06:59 14:59 Intake Total 240 600 600 Output Total 1375 1100 Balance -1135 -500 600 Intake: IV 600 600 Sodium Chloride 0.45% 1, 600 600 000 ml @ 100 mls/hr IV . Q10H PIOTR Rx#:[id number] Oral 240 Output: Urine 1375 1100 Other: Voiding Method Toilet # Voids 1 1 Weight 58.4 kg General appearance: The patient is alert, oriented, in no acute distress. HET: Head is normocephalic and atraumatic. Pupils are equal and reactive. Oropharynx is clear without lesions. Neck: Supple without lymphadenopathy. Trachea midline. Heart: S1 S2. Regular rate and rhythm. Lungs: No crackles or wheezes are heard. Abdomen: Soft, distended with moderate ascites, nontender, with bowel sounds. No peritoneal signs. No palpable organomegaly or masses. Extremities: Normal skin color and turgor. No cyanosis, rash, ulceration, clubbing, or edema. Radial and pedal pulses are 2/4 bilaterally. Neurological: No focal deficits. Strength and sensation are grossly intact. Results CBC & Chem 7: 09/01/16 05:44 09/01/16 05:44 Labs: Abnormal Lab Results - Last 24 Hours (Table) 09/01/16 09/01/16 Range/Units 05:44 05:44 Plt Count 136 L (150-450) k/uL Lymphocytes # 0.5 L (1.0-4.8) k/uL Sodium 135 L (137-145) mmol/L Glucose 70 L (74-99) mg/dL Calcium 7.9 L (8.4-10.2) mg/dL Total Protein 5.8 L (6.3-8.2) g/dL Albumin 2.9 L (3.5-5.0) g/dL Assessment and Plan (1) Ascites Status: Chronic (2) Liver cirrhosis Status: Chronic (3) History of congenital heart disease Status: Chronic Plan: 1. Therapeutic paracentesis. Low-salt diet. Continue diuretics Lasix 40 mg twice daily and Aldactone 50 mg daily. Return to GI office in 1-2 weeks for reevaluation. Thank you for this kind referral and the opportunity to participate in the care of your patient. This consultation was discussed with Dr. Nix. The impression and plan of care have been directed as dictated.
[2016-09-01 12:14] LABS: Chlamydia/GC Source Vaginal
--- NOTE | 2016-09-01 12:37 | P.CRDCN ---
History of Present Illness Consult date: 09/01/16 Requesting physician: Devaughn Marino Consult reason: atrial flutter Chief complaint: Abdominal distention History of present illness: This is a 35-year-old female who follows with Dr. Nix in the office. She has a known history of tricuspid atresia with hypoplastic right ventricle and is status post Fontan procedure which was performed at the age of 1 and at the age of 7. She states that she has not followed with children's for 18 years, follows regularly with Dr. Nix. It appears that she has not been in the office since 2014. Patient does have history of atrial flutter and cardiac cirrhosis. She was in the hospital on Wednesday, underwent successful therapeutic paracentesis under ultrasound guidance for 3.8 L of straw-colored fluid removed. She states that even on release home from there she felt that her abdomen was still quite distended and progressively worsened to the point where she states she felt 9 months . Patient was having some mild lower pelvic discomfort which she stated reminded her of prior pregnancies. test here was negative. Patient was found to have significant ascites. She underwent a paracentesis today for over 6 L of fluid removal. At the time of my examination, she states that she's feeling much better. Abdomen is soft. Cardiology consultation was requested for her atrial flutter yesterday the patient's heart rate was up into the 120s, heart rate today 80. Blood pressure 98/60. Laboratory data reviewed, CBC normal. Sodium 135, potassium 4.2, chloride 103, CO2 25. TSH 19.8 free T4 1.2. Chest x-ray report difficult to exclude pulmonary venous hypertension and interstitial edema. Patient is currently on aspirin 81 mg daily, Lasix 40 mg by mouth twice a day, Synthroid, metoprolol tartrate 12-1/2 mg one tablet by mouth twice a day and Aldactone 50 mg daily. Most recent echocardiogram with Doppler study was performed here in 2014 revealed an ejection fraction of 55-60% univentricular heart with good systolic function. 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 History of Any Multi-Drug Resistant Organisms: None Reported Past Surgical History: Coronary Bypass/CABG Additional Past Surgical History / Comment(s): D&C in November 2013, paracentesis, patient states her liver "went bad" after a miscarriage in 2013, Fontan 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 7 Past Anesthesia/Blood Transfusion Reactions: No Reported Reaction Past Psychological History: No Psychological Hx Reported Smoking Status: Never smoker Past Alcohol Use History: None Reported Past Drug Use History: None Reported - Past Family History Mother Family Medical History: Asthma, Cancer, Hyperlipidemia, Hypertension Additional Family Medical History / Comment(s): Mother had breast CA at age 52 Brother(s) Family Medical History: Asthma Father Family Medical History: Asthma Medications and Allergies Home Medications Medication Instructions Recorded Confirmed Type Albuterol Inhaler [Ventolin Hfa 1 - 2 puff INHALATION RT-Q6H PRN 05/17/14 History Inhaler] Aspirin [Adult Low Dose Aspirin EC] 81 mg PO DAILY@1400 07/12/15 08/31/16 History Ibuprofen [Motrin] 200 mg PO Q6HR PRN 08/21/16 08/31/16 History Spironolactone 50 mg PO DAILY@1400 08/21/16 08/31/16 History Levothyroxine Sodium [Synthroid] 100 mcg PO DAILY 08/31/16 08/31/16 History Allergies Allergy/AdvReac Type Severity Reaction Status Date / Time warfarin sodium Allergy Unknown Verified 08/31/16 08:02 [From Coumadin] peas AdvReac Diarrhea Verified 08/31/16 08:02 Physical Exam Vitals: Vital Signs Temp Pulse Pulse Pulse Pulse Pulse Pulse 09/01/16 12:15 79 09/01/16 12:00 97.1 F L 83 09/01/16 11:45 90 09/01/16 11:11 09/01/16 10:53 100 09/01/16 10:30 88 09/01/16 08:54 100 09/01/16 08:45 102 H 09/01/16 08:00 97 F L 102 H 09/01/16 03:01 77 80 76 09/01/16 02:57 97.7 F 77 80 76 09/01/16 00:00 97.7 F 89 08/31/16 20:47 100 08/31/16 20:33 100 08/31/16 20:24 79 08/31/16 18:50 118 H 08/31/16 18:41 97.7 F 118 H 08/31/16 16:42 90 08/31/16 16:34 90 08/31/16 15:48 97.7 F 88 08/31/16 15:31 88 08/31/16 14:29 97.6 F 92 08/31/16 12:36 110 H Resp BP BP BP BP Pulse Ox 09/01/16 12:15 16 92/54 94 L 09/01/16 12:00 16 86/55 97 09/01/16 11:45 18 112/69 99 09/01/16 11:11 16 98/65 99 09/01/16 10:53 16 107/65 97 09/01/16 10:30 18 93/60 97 09/01/16 08:54 09/01/16 08:45 09/01/16 08:00 16 95/64 94 L 09/01/16 03:01 16 09/01/16 02:57 16 103/74 98/72 98/71 94 L 09/01/16 00:00 16 86/50 90 L 08/31/16 20:47 08/31/16 20:33 08/31/16 20:24 16 104/54 95 08/31/16 18:50 16 08/31/16 18:41 16 107/76 95 08/31/16 16:42 08/31/16 16:34 08/31/16 15:48 16 96/55 94 L 08/31/16 15:31 18 95 08/31/16 14:29 16 99/58 08/31/16 12:36 18 82/53 96 Intake and Output 08/31/16 09/01/16 09/01/16 22:59 06:59 14:59 Intake Total 240 600 600 Output Total 1375 1100 Balance -1135 -500 600 Intake: IV 600 600 Sodium Chloride 0.45% 1, 600 600 000 ml @ 100 mls/hr IV . Q10H [facility] Rx#:[id number] Oral 240 Output: Urine 1375 1100 Other: Voiding Method Toilet # Voids 1 1 Weight 58.4 kg PHYSICAL EXAMINATION: HEENT: Head is atraumatic, normocephalic. Pupils equal, round. Neck is supple. There is no elevated jugular venous pressure. HEART EXAMINATION: Heart S1-S2, S3 gallop heard. CHEST EXAMINATION: Lungs are clear to auscultation, mild diminished air entry to the bases. ABDOMEN: Soft, nontender. Bowel sounds are heard. No organomegaly noted. EXTREMITIES: 1+ peripheral pulses with trace evidence of peripheral edema and no calf tenderness noted. NEUROLOGIC patient is awake, alert and oriented -3. . Results 09/01/16 05:44 09/01/16 05:44 Cardiac Enzymes 09/01/16 Range/Units 05:44 AST 23 (14-36) U/L CBC 09/01/16 Range/Units 05:44 WBC 5.1 (3.8-10.6) k/uL RBC 5.02 (3.80-5.40) m/uL Hgb 13.8 (11.4-16.0) gm/dL Hct 44.4 (34.0-46.0) % Plt Count 136 L (150-450) k/uL Comprehensive Metabolic Panel 09/01/16 Range/Units 05:44 Sodium 135 L (137-145) mmol/L Potassium 4.2 (3.5-5.1) mmol/L Chloride 103 (98-107) mmol/L Carbon Dioxide 25 (22-30) mmol/L BUN 11 (7-17) mg/dL Creatinine 0.90 (0.52-1.04) mg/dL Glucose 70 L (74-99) mg/dL Calcium 7.9 L (8.4-10.2) mg/dL AST 23 (14-36) U/L ALT 24 (9-52) U/L Alkaline Phosphatase 60 (38-126) U/L Total Protein 5.8 L (6.3-8.2) g/dL Albumin 2.9 L (3.5-5.0) g/dL Current Medications Generic Name Dose Route Start Last Admin Trade Name Freq PRN Reason Stop Dose Admin Albuterol/Ipratropium 3 ml 08/31/16 16:00 09/01/16 12:13 Duoneb 0.5 Mg-3 Mg/3 Ml Soln INHALATION 3 ml RT-QID [facility] Administration Alprazolam 0.25 mg 08/31/16 00:33 Xanax PO Q6HR PRN Anxiety Aspirin 81 mg 08/31/16 14:00 08/31/16 14:14 Aspirin PO Not Given DAILY@1400 [facility] Furosemide 40 mg 08/31/16 09:00 09/01/16 09:32 Lasix PO 40 mg BID@0900,1600 [facility] Administration Sodium Chloride 1,000 mls @ 100 mls/hr 08/31/16 00:45 09/01/16 09:29 Saline 0.45% IV 100 mls/hr .Q10H [facility] Administration Levothyroxine Sodium 100 mcg 08/31/16 09:00 09/01/16 09:32 Synthroid PO 100 mcg DAILY@0630 [facility] Administration Metoprolol Tartrate 12.5 mg 08/31/16 09:00 09/01/16 09:32 Lopressor PO 12.5 mg BID [facility] Administration Morphine Sulfate 4 mg 08/31/16 00:33 09/01/16 05:55 Morphine Sulfate (Inj) IV 4 mg Q4HR PRN Administration Severe Pain Multi-Ingred Cream/Lotion/Oil/Oint 1 applic 08/31/16 14:39 08/31/16 15:53 Eucerin Cream TOPICAL 1 applic BID PRN Administration Dry Skin Ondansetron HCl 4 mg 08/31/16 00:33 Zofran IVP Q8HR PRN Nausea And Vomiting Spironolactone 50 mg 08/31/16 14:00 08/31/16 14:18 Aldactone PO 50 mg DAILY@1400 [facility] Administration Intake and Output 08/31/16 09/01/16 09/01/16 22:59 06:59 14:59 Intake Total 240 600 600 Output Total 1375 1100 Balance -1135 -500 600 Intake: IV 600 600 Sodium Chloride 0.45% 1, 600 600 000 ml @ 100 mls/hr IV . Q10H [facility] Rx#:[id number] Oral 240 Output: Urine 1375 1100 Other: Voiding Method Toilet # Voids 1 1 Weight 58.4 kg 09/01/16 05:44 09/01/16 05:44 EKG Interpretations (text) EKG shows atrial flutter with a controlled ventricular response and nonspecific ST-T wave changes Assessment and Plan Plan: Assessment and plan #1 abdominal ascites status post paracentesis. 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 #3 chronic persistent atrial flutter, not on anticoagulation #4 hypothyroidism Plan We will repeat the patient's echocardiogram with Doppler study. Continue metoprolol tartrate 12-1/2 mg one tablet by mouth twice a day Lasix 40 mg by mouth twice a day, aspirin daily, and Aldactone 50 mg daily. Further recommendations to follow. DNP note has been reviewed, I agree with a documented findings and plan of care. Patient was seen and examined.
[2016-09-01] MEDS: SPIRONOLACTONE 25 MG TAB PO SCH (12:58)
--- NOTE | 2016-09-01 12:58 | US ---
Therapeutic paracentesis. CLINICAL HISTORY: Ascites The procedure was discussed with the patient. The risks, complications, benefits, and alternatives we re discussed and any questions were answered. Informed consent was obtained. The patient was placed s upine on the ultrasound table and prepped and draped in the usual sterile fashion. All elements of maximal barrier technique were utilized. Under ultrasound guidance, access into the right lower quadrant was obtained, via the paracentesis catheter system and direct ultrasound guidanc e. Approximately 6.5 liters of straw-colored fluid was removed. The patient was stable throughout the pr ocedure and remained stable upon discharge from Department of Radiology. IMPRESSION: Successful therapeutic paracentesis under ultrasound guidance.
[2016-09-01] MEDS: ASPIRIN 81 MG CHEW PO SCH (12:59)
--- NOTE | 2016-09-01 13:48 | P.PN ---
Progress Note - Text this is an addendum to the dictated cardiology consultation. The patient has a known history of congenital heart disease, with tricuspid atresia and Fontan procedure who presented with increase abdominal girth. She has underwent paracentesis recently but reaccumulated the fluid and presented for further evaluation. Patient has a history of atrial flutter ,has not been compliant with follow-up with Dr. Nix.she denies any chest discomfort but she has noted the progressive dyspnea. She is quite weak and fatigued. She has no significant peripheral edema. Her findings are consistent with pulmonary hypertension. I will obtain an echocardiogram with Doppler, follow her renal function. The patient should be seen in an adult congenital heart disease clinic for further evaluation and evaluation of her conduit. I have discussed with her dose findings she is not quite sure she can make the trip because of social issues. We will get the input of elementary school social worker for further evaluation and guidance in that regard.the patient most likely will require either an MRI or computed tomography scan to further evaluate her conduit and her cardiac status and guide her treatment. Her prognosis is guarded. Thank you for this consult we will follow with you.
--- NOTE | 2016-09-01 15:55 | P.PN ---
Subjective Principal diagnosis: Increasing ascites Patient is a 35-year-old female was known history of congenital heart disease, liver cirrhosis and ascites, who was admitted to [facility] due to worsening ascites and worsening shortness of breath, patient had paracentesis about 1 week prior to admission, however she states that she thought she was so she stopped taking all her medications, she had very fast reaccumulation of ascites with abdominal discomfort and shortness of breath, she presented again to emergency room and was admitted to medical floor. Objective - Vital Signs Vital signs: Vital Signs Temp 97.1 F L 09/01/16 12:00 Pulse 79 09/01/16 13:45 Resp 16 09/01/16 13:45 BP 84/51 09/01/16 13:45 Pulse Ox 96 09/01/16 13:45 Intake & Output 08/31/16 09/01/16 09/01/16 18:59 06:59 18:59 Intake Total 812 040 1439 Output Total 1225 1650 Balance -745 -810 1420 Weight 58.4 kg 58.4 kg Intake: IV 600 1300 Sodium Chloride 0.45% 1, 600 1300 000 ml @ 100 mls/hr IV . Q10H [facility] Rx#:[id number] Oral 480 240 120 Output: Urine 1225 1650 Other: Voiding Method Toilet Toilet # Voids 1 1 - Exam In general patient is alert and oriented 3 in no apparent distress HEENT head normocephalic and atraumatic Neck is supple no JVD no goiter no lymphadenopathy Chest exam reveals a few scattered crackles no wheezing Cardiac exam reveals regular heart sounds no murmurs Abdomen is soft nontender no organomegaly with normal bowel sounds she is status post paracentesis today Extremity exam reveals minimal edema - Labs CBC & Chem 7: 09/01/16 05:44 09/01/16 05:44 Labs: Abnormal Lab Results - Last 24 Hours (Table) 09/01/16 09/01/16 Range/Units 05:44 05:44 Plt Count 136 L (150-450) k/uL Lymphocytes # 0.5 L (1.0-4.8) k/uL Sodium 135 L (137-145) mmol/L Glucose 70 L (74-99) mg/dL Calcium 7.9 L (8.4-10.2) mg/dL Total Protein 5.8 L (6.3-8.2) g/dL Albumin 2.9 L (3.5-5.0) g/dL Assessment and Plan Plan: 1. Abdominal ascites with a known history of cardiogenic liver cirrhosis. Patient has been noncompliant with her medications. Interventional radiology has been consulted for paracentesis. Last paracentesis was about a week ago with 3.8 L removed. Patient underwent paracentesis again today on 09/01/2016 she is feeling better 2. 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 Hypothyroidism 4. Atrial flutter 5. History of aortic valve repair DVT prophylaxis SCDs
[2016-09-02 06:43] LABS: Basophils % (A) 1 %; CH 27.1; CHCM 31.7; Eosinophils # (A) 0.2 k/uL (0-0.7); Eosinophils % (A) 4 %; HCT 43.7 % (34.0-46.0); HDW 2.58; HGB 13.8 gm/dL (11.4-16.0); Luc # (Auto) 0.11; Luc % (Auto) 3; Lymphocytes # (A) 0.6 k/uL (1.0-4.8); Lymphocytes % (A) 13 %; MCHC 31.5 g/dL (31.0-37.0); MCV 85.9 fL (80.0-100.0); Mean Platelet Volume 7.7; Monocytes # (A) 0.3 k/uL (0-1.0); Monocytes % (A) 7 %; Neutrophils # (A) 3.2 k/uL (1.3-7.7); Neutrophils % (A) 73 %; RBC 5.09 m/uL (3.80-5.40); WBC 4.4 k/uL (3.8-10.6); WBC (Perox) 4.48
[2016-09-02] MEDS: LEVOTHYROXINE 100 MCG TAB PO SCH (06:44)
[2016-09-02 07:11] LABS: ALT 27 U/L (9-52); AST 21 U/L (14-36); Alkaline Phosphatase 61 U/L (38-126); Anion Gap 8 mmol/L; Blood Urea Nitrogen 10 mg/dL (7-17); Calcium 7.7 mg/dL (8.4-10.2); Carbon Dioxide 25 mmol/L (22-30); Chloride 103 mmol/L (98-107); Glucose 76 mg/dL (74-99); Non-African American GFR(MDRD) >60 (>60 ml/min/1.73 sqM); Potassium 4.1 mmol/L (3.5-5.1); Sodium 136 mmol/L (137-145); Total Bilirubin 0.7 mg/dL (0.2-1.3); Total Protein 5.4 g/dL (6.3-8.2)
[2016-09-02 08:25] VITALS: RESP 14; TEMP 97.7
[2016-09-02 08:44] VITALS: BP 89/57
[2016-09-02] MEDS: METOPROLOL TARTRATE 12.5 MG TAB PO SCH (08:44)
[2016-09-02] MEDS: FUROSEMIDE 40 MG TAB PO SCH (08:45)
[2016-09-02 09:01] VITALS: PULSE 84
[2016-09-02] MEDS: IPRATROPIUM-ALBUTEROL 3 ML NEB INHALATION SCH ×2 (09:05→13:29)
--- NOTE | 2016-09-02 09:37 | P.PN ---
Subjective Principal diagnosis: ascites Status post therapeutic paracentesis 6.8 L yesterday. Feels better. Denies abdominal pain. Anticipate discharge. Afebrile. Objective - Vital Signs Vital signs: Vital Signs Temp 97.7 F 09/02/16 08:00 Pulse 84 09/02/16 08:00 Resp 14 09/02/16 08:00 BP 89/57 09/02/16 08:43 Pulse Ox 93 L 09/02/16 08:00 Intake & Output 09/01/16 09/02/16 09/02/16 18:59 06:59 18:59 Intake Total 1540 120 Output Total 550 1250 Balance 990 -1130 Weight 58.4 kg 49.9 kg Intake: IV 1300 Sodium Chloride 0.45% 1, 1300 000 ml @ 100 mls/hr IV . Q10H [facility] Rx#:[id number] Oral 240 120 Output: Urine 550 1250 Other: Voiding Method Toilet Toilet # Voids 1 1 - Exam General appearance: The patient is alert, oriented, in no acute distress. HET: Head is normocephalic and atraumatic. Pupils are equal and reactive. Oropharynx is clear without lesions. Neck: Supple without lymphadenopathy. Trachea midline. Heart: S1 S2. Regular rate and rhythm. Lungs: No crackles or wheezes are heard. Abdomen: Soft, nontender, nondistended with bowel sounds. No peritoneal signs. No palpable organomegaly or masses. Extremities: Normal skin color and turgor. No cyanosis, rash, ulceration, clubbing, or edema. Radial and pedal pulses are 2/4 bilaterally. Neurological: No focal deficits. Strength and sensation are grossly intact. - Labs CBC & Chem 7: 09/02/16 06:09 09/02/16 06:09 Labs: Abnormal Lab Results - Last 24 Hours (Table) 09/02/16 09/02/16 Range/Units 06:09 06:09 Plt Count 138 L (150-450) k/uL Lymphocytes # 0.6 L (1.0-4.8) k/uL Sodium 136 L (137-145) mmol/L Calcium 7.7 L (8.4-10.2) mg/dL Total Protein 5.4 L (6.3-8.2) g/dL Albumin 2.7 L (3.5-5.0) g/dL Assessment and Plan (1) Ascites Status: Chronic (2) Liver cirrhosis Status: Chronic (3) History of congenital heart disease Status: Chronic Plan: 1. Discharge per medicine. Low-salt diet. Continue with diuretics. Return to office in 3 weeks for reevaluation. Assessment and plan a care discussed with Dr. Nix
--- NOTE | 2016-09-02 10:44 | ECHOF ---
Referral Reason:atrial flutter MEASUREMENTS -------- HEIGHT: 152.4 cm WEIGHT: 58.1 kg BP: 92/54 IVSd: 1.1 cm (0.6 - 1.1) LVIDd: 3.7 cm (3.9 - 5.3) LVPWd: 1.1 cm (0.6 - 1.1) IVSs: 1.4 cm LVIDs: 2.4 cm LVPWs: 1.6 cm LA Diam: 3.4 cm (2.7 - 3.8) LAESV Index (A-L): 19.89 ml/m Ao Diam: 2.8 cm (2.0 - 3.7) AV Cusp: 2.0 cm (1.5 - 2.6) MV EXCURSION: 15.944 mm (> 18.000) MV EF SLOPE: 17 mm/s (70 - 150) EPSS: 0.4 cm MV E Kit: 0.54 m/s MV DecT: 156 ms MV A Kit: 0.35 m/s MV E/A Ratio: 1.54 AR PHT: 1608 ms FINDINGS -------- Sinus rhythm. This was a technically good study. The left ventricular size is normal. There is borderline concentric left ventricular hypertrophy. Overall left ventricular systolic function is low-normal with, an EF between 50 - 55 %. Pt. had Fontan Pocedure Normal LA size by volume 22+/-6 ml/m2. Aortic valve is trileaflet and is mildly thickened. There is mild aortic regurgitation. Mild mitral annular calcification present. Mild mitral regurgitation is present. Tricuspid Atresia The aortic root size is normal. Normal inferior vena cava with normal inspiratory collapse consistent with estimated right atrial pressure of 5 mmHg. There is no pericardial effusion. CONCLUSIONS -------- 1. Sinus rhythm. 2. Mild mitral annular calcification present. 3. Mild mitral regurgitation is present. 4. Tricuspid Atresia 5. The aortic root size is normal. 6. Normal inferior vena cava with normal inspiratory collapse consistent with estimated right atrial pressure of 5 mmHg. 7. There is no pericardial effusion. 8. This was a technically good study. 9. The left ventricular size is normal. 10. There is borderline concentric left ventricular hypertrophy. 11. Overall left ventricular systolic function is low-normal with, an EF between 50 - 55 %. 12. Pt. had Fontan Pocedure 13. Normal LA size by volume 22+/-6 ml/m2. 14. Aortic valve is trileaflet and is mildly thickened. 15. There is mild aortic regurgitation. BASKET BRAIDER: Lucrecia Barksdale RDCS
--- NOTE | 2016-09-02 11:17 | P.DS ---
Providers Date of admission: 08/31/16 00:19 Expected date of discharge: 09/02/16 Attending physician: Devaughn Marino Consults: 08/31/16 16:02 Consult Physician Routine Consulting Provider: Hayele Suarez Consult Reason/Comments: irregular heart beat Do you want consulting provider notified?: Yes Primary care physician: [facility] Emergency Course: Diagnosis on discharge #1 ascites requiring paracentesis during this admission #2 cardiogenic liver cirrhosis #3 congenital heart disease was previous tricuspid atresia with hypoplastic right ventricle status post Fontan procedure at age 1 #4 hypothyroidism #5 chronic atrial flutter #6 history of aortic valve repair #7 social issues with noncompliance with medications Hospital course patient is a 35-year-old female well known to my practice who presented to [facility] emergency room with a chief complaint of abdominal discomfort was worsening ascites patient was at [facility] 1 week prior to this admission and at that time she underwent paracentesis and had 3.8 L removed, however she stopped taking her oral medications at home because she thought she was she returned to emergency room with severe ascites she was admitted to telemetry floor she underwent paracentesis again with interventional radiology 6.5 L were removed this time. Patient was seen by ticket speculator Dr. Suarez she was advised to follow-up with [facility] congenital heart disease department appointment was made for her and our arrangement for a ride was arranged by social services specialist and her insurance. She will be discharged home on 09/02/2016 she will be followed in our office within 1 week Patient Condition at Discharge: Stable Plan - Discharge Summary Discharge Medication List Albuterol Inhaler [Ventolin Hfa Inhaler] 1 - 2 puff INHALATION RT-Q6H PRN [History] Metoprolol Tartrate 12.5 mg PO BID #60 tab 03/23/15 [Rx] Furosemide [Lasix] 40 mg PO BID@0900,1600 #60 tab 07/11/15 [Rx] Aspirin [Adult Low Dose Aspirin EC] 81 mg PO DAILY@1400 07/12/15 [History] Ibuprofen [Motrin] 200 mg PO Q6HR PRN 08/21/16 [History] Spironolactone 50 mg PO DAILY@1400 08/21/16 [History] Levothyroxine Sodium [Synthroid] 100 mcg PO DAILY 08/31/16 [History] Ipratropium-Albuterol Nebulize [Duoneb 0.5 mg-3 mg/3 ml Soln] 3 ml INHALATION RT -QID ampul.neb 09/02/16 [Rx] Levothyroxine Sodium [Synthroid] 100 mcg PO DAILY@0630 tab 09/02/16 [Rx] Follow up Appointment(s)/Referral(s): Anne Marie Nix MD [STAFF PHYSICIAN] - 09/23/16 3:45 pm Devaughn Marino MD [Primary Care Provider] - 1-2 days Activity/Diet/Wound Care/Special Instructions: [facility] [address] [place], [place] Dr Varner-congenital ticket speculator [phone] Wednesday, September 14 11am Ride will turkey picker from patients house at 9am, take patient to appointment and pick patient up from appointment at 2pm. Ride is arranged through: [employer]
== END 2016-09-02 14:52 | disposition home or self-care (01) ==
LOC: EC 22:04 → 6PED 08-31 00:19 → 6SEL 08-31 20:14
PROVIDERS: ADMIT Internal Medicine; ATTEND Internal Medicine
DX: K76.1 Chronic passive congestion of liver (principal); R18.8 Other ascites; Z86.79 Personal history of other diseases of the circulatory system; E03.9 Hypothyroidism, unspecified; I27.2 Other secondary pulmonary hypertension; I48.92 Unspecified atrial flutter; J45.909 Unspecified asthma, uncomplicated; Z79.82 Long term (current) use of aspirin; Z91.14 Patient's other noncompliance with medication regimen; Z91.19 Patient's noncompliance with other medical treatment and regimen; Z95.1 Presence of aortocoronary bypass graft; Z79.899 Other long term (current) drug therapy; Z88.8 Allergy status to other drugs, medicaments and biological substances
CPT/HCPCS: 36415; 94640 ×4; 93306; 93005; 84439; 80053 ×3; 84443; 87591; 87491; 85025 ×3; 85610; 85730; 81001; 81025 ×2; 87808; 87070; 87205; 71020; 49083; 99285; 96374; G0378 ×3; J2270 ×2; J1885; 96375

== ENCOUNTER 2017-09-12 01:55 | Emergency (ER) | payer OTHER ==
--- NOTE | 2017-09-12 03:39 | ED ---
General Adult HPI - General Chief complaint: Chest Pain Stated complaint: Chest Pain Time Seen by Provider: 09/12/17 03:28 Source: patient, RN notes reviewed, old records reviewed Mode of arrival: ambulatory Limitations: no limitations - History of Present Illness Initial comments: This is a 36-year-old female the ER for evasive chest pain. Patient has some occasional left-sided chest pain. No shortness of breath patient had pain 3 hours no modifying factors. Patient states she does have appointment with her software developer consultant on at [facility] for unknown congenital cardiac disease and she is just concerned over chest pain currently. No fever no cough or congestion recent travel history no known sick contacts. - Related Data Home Medications Medication Instructions Recorded Confirmed Albuterol Inhaler [Ventolin Hfa 1 - 2 puff INHALATION RT-Q6H PRN 05/17/14 Inhaler] Aspirin [Adult Low Dose Aspirin EC] 81 mg PO DAILY@1400 07/12/15 08/31/16 Spironolactone 50 mg PO BID 08/21/16 09/12/17 Levothyroxine Sodium [Synthroid] 100 mcg PO DAILY 08/31/16 09/12/17 Enoxaparin [Lovenox] 80 mg SQ DAILY 09/12/17 09/12/17 Sotalol [Betapace] 120 mg PO BID 09/12/17 09/12/17 Previous Rx's Medication Instructions Recorded Furosemide [Lasix] 40 mg PO BID@0900,1600 #60 tab 07/11/15 Allergies Allergy/AdvReac Type Severity Reaction Status Date / Time warfarin sodium Allergy Unknown Verified 08/31/16 08:02 [From Coumadin] peas AdvReac Diarrhea Verified 08/31/16 08:02 Review of Systems ROS Statement: Those systems with pertinent positive or pertinent negative responses have been documented in the HPI. ROS Other: All systems not noted in ROS Statement are negative. 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 7 Past Anesthesia/Blood Transfusion Reactions: No Reported Reaction Past Psychological History: No Psychological Hx Reported Smoking Status: Never smoker Past Alcohol Use History: None Reported Past Drug Use History: None Reported - Past Family History Mother Family Medical History: Asthma, Cancer, Hyperlipidemia, Hypertension Additional Family Medical History / Comment(s): Mother had breast CA at age 52 Brother(s) Family Medical History: Asthma Father Family Medical History: Asthma General Exam Limitations: no limitations General appearance: alert, in no apparent distress Head exam: Present: atraumatic, normocephalic, normal inspection Eye exam: Present: normal appearance, PERRL, EOMI. Absent: scleral icterus, conjunctival injection, periorbital swelling ENT exam: Present: normal exam, mucous membranes moist Neck exam: Present: normal inspection. Absent: tenderness, meningismus, lymphadenopathy Respiratory exam: Present: normal lung sounds bilaterally. Absent: respiratory distress, wheezes, rales, rhonchi, stridor Cardiovascular Exam: Present: regular rate, normal rhythm, normal heart sounds. Absent: systolic murmur, diastolic murmur, rubs, gallop, clicks GI/Abdominal exam: Present: soft, normal bowel sounds. Absent: distended, tenderness, guarding, rebound, rigid Extremities exam: Present: normal inspection, full ROM, normal capillary refill. Absent: tenderness, pedal edema, joint swelling, calf tenderness Back exam: Present: normal inspection Neurological exam: Present: alert, oriented X3, CN II-XII intact Psychiatric exam: Present: normal affect, normal mood Skin exam: Present: warm, dry, intact, normal color. Absent: rash Course Vital Signs 09/12/17 09/12/17 03:05 05:12 Temperature 97.5 F L Pulse Rate 93 78 Respiratory 20 18 Rate Blood Pressure 120/72 89/52 O2 Sat by Pulse 97 98 Oximetry - Reevaluation(s) Reevaluation #1: 09/12/17 06:21 Patient is chest pain improved, she does report recent cardiac catheterization which from her standpoint was normal, she does have recent diagnosis of atrial fibrillation EKG Findings - EKG Comments: EKG Findings:: EKG shows normal sinus rhythm rate of 84, TN 204, QRS 88, QTC 456 Medical Decision Making - Medical Decision Making 36 female with unknown cardiac abnormality of childhood coming in with chest pain. Chest pain 3 hours. Patient states her symptoms are improved, no significant symptoms. Patient can be discharged home - Lab Data Result diagrams: 09/12/17 03:31 09/12/17 03:31 Lab Results 09/12/17 09/12/17 09/12/17 Range/Units 03:31 03:31 03:31 WBC 4.3 (3.8-10.6) k/uL RBC 4.91 (3.80-5.40) m/uL Hgb 14.0 (11.4-16.0) gm/dL Hct 41.6 (34.0-46.0) % MCV 84.7 (80.0-100.0) fL MCH 28.4 (25.0-35.0) pg MCHC 33.6 (31.0-37.0) g/dL RDW 13.4 (11.5-15.5) % Plt Count 151 (150-450) k/uL Neutrophils % 71 % Lymphocytes % 14 % Monocytes % 7 % Eosinophils % 5 % Basophils % 1 % Neutrophils # 3.1 (1.3-7.7) k/uL Lymphocytes # 0.6 L (1.0-4.8) k/uL Monocytes # 0.3 (0-1.0) k/uL Eosinophils # 0.2 (0-0.7) k/uL Basophils # 0.0 (0-0.2) k/uL PT (9.0-12.0) sec INR (<1.2) APTT (22.0-30.0) sec Sodium 140 (137-145) mmol/L Potassium 4.1 (3.5-5.1) mmol/L Chloride 106 (98-107) mmol/L Carbon Dioxide 21 L (22-30) mmol/L Anion Gap 13 mmol/L BUN 14 (7-17) mg/dL Creatinine 0.70 (0.52-1.04) mg/dL Est GFR (CKD-EPI)AfAm >90 (>60 ml/min/1.73 sqM) Est GFR (CKD-EPI)NonAf >90 (>60 ml/min/1.73 sqM) Glucose 96 (74-99) mg/dL Calcium 9.5 (8.4-10.2) mg/dL Magnesium 1.9 (1.6-2.3) mg/dL Total Bilirubin 1.3 (0.2-1.3) mg/dL AST 32 (14-36) U/L ALT 17 (9-52) U/L Alkaline Phosphatase 72 (38-126) U/L Total Creatine Kinase 71 (30-135) U/L CK-MB (CK-2) 0.9 (0.0-2.4) ng/mL CK-MB (CK-2) Rel Index 1.3 Troponin I <0.012 (0.000-0.034) ng/mL NT-Pro-B Natriuret Pep pg/mL Total Protein 7.3 (6.3-8.2) g/dL Albumin 4.2 (3.5-5.0) g/dL Lipase 60 (23-300) U/L Urine Color Urine Appearance (Clear) Urine pH (5.0-8.0) Ur Specific [place] (1.001-1.035) Urine Protein (Negative) Urine Glucose (UA) (Negative) Urine Ketones (Negative) Urine Blood (Negative) Urine Nitrite (Negative) Urine Bilirubin (Negative) Urine Urobilinogen (<2.0) mg/dL Ur Leukocyte Esterase (Negative) Urine RBC (0-5) /hpf Urine WBC (0-5) /hpf Ur Squamous Epith Cells (0-4) /hpf Amorphous Sediment (None) /hpf Urine Bacteria (None) /hpf Hyaline Casts (0-2) /lpf Urine Mucus (None) /hpf Urine HCG, Qual (Not Detectd) 09/12/17 09/12/17 09/12/17 Range/Units 03:31 03:31 03:48 WBC (3.8-10.6) k/uL RBC (3.80-5.40) m/uL Hgb (11.4-16.0) gm/dL Hct (34.0-46.0) % MCV (80.0-100.0) fL MCH (25.0-35.0) pg MCHC (31.0-37.0) g/dL RDW (11.5-15.5) % Plt Count (150-450) k/uL Neutrophils % % Lymphocytes % % Monocytes % % Eosinophils % % Basophils % % Neutrophils # (1.3-7.7) k/uL Lymphocytes # (1.0-4.8) k/uL Monocytes # (0-1.0) k/uL Eosinophils # (0-0.7) k/uL Basophils # (0-0.2) k/uL PT 12.5 H (9.0-12.0) sec INR 1.3 H (<1.2) APTT 25.3 (22.0-30.0) sec Sodium (137-145) mmol/L Potassium (3.5-5.1) mmol/L Chloride (98-107) mmol/L Carbon Dioxide (22-30) mmol/L Anion Gap mmol/L BUN (7-17) mg/dL Creatinine (0.52-1.04) mg/dL Est GFR (CKD-EPI)AfAm (>60 ml/min/1.73 sqM) Est GFR (CKD-EPI)NonAf (>60 ml/min/1.73 sqM) Glucose (74-99) mg/dL Calcium (8.4-10.2) mg/dL Magnesium (1.6-2.3) mg/dL Total Bilirubin (0.2-1.3) mg/dL AST (14-36) U/L ALT (9-52) U/L Alkaline Phosphatase (38-126) U/L Total Creatine Kinase (30-135) U/L CK-MB (CK-2) (0.0-2.4) ng/mL CK-MB (CK-2) Rel Index Troponin I (0.000-0.034) ng/mL NT-Pro-B Natriuret Pep 2010 pg/mL Total Protein (6.3-8.2) g/dL Albumin (3.5-5.0) g/dL Lipase (23-300) U/L Urine Color Urine Appearance (Clear) Urine pH (5.0-8.0) Ur Specific [place] (1.001-1.035) Urine Protein (Negative) Urine Glucose (UA) (Negative) Urine Ketones (Negative) Urine Blood (Negative) Urine Nitrite (Negative) Urine Bilirubin (Negative) Urine Urobilinogen (<2.0) mg/dL Ur Leukocyte Esterase (Negative) Urine RBC (0-5) /hpf Urine WBC (0-5) /hpf Ur Squamous Epith Cells (0-4) /hpf Amorphous Sediment (None) /hpf Urine Bacteria (None) /hpf Hyaline Casts (0-2) /lpf Urine Mucus (None) /hpf Urine HCG, Qual Not Detected (Not Detectd) 09/12/17 Range/Units 03:48 WBC (3.8-10.6) k/uL RBC (3.80-5.40) m/uL Hgb (11.4-16.0) gm/dL Hct (34.0-46.0) % MCV (80.0-100.0) fL MCH (25.0-35.0) pg MCHC (31.0-37.0) g/dL RDW (11.5-15.5) % Plt Count (150-450) k/uL Neutrophils % % Lymphocytes % % Monocytes % % Eosinophils % % Basophils % % Neutrophils # (1.3-7.7) k/uL Lymphocytes # (1.0-4.8) k/uL Monocytes # (0-1.0) k/uL Eosinophils # (0-0.7) k/uL Basophils # (0-0.2) k/uL PT (9.0-12.0) sec INR (<1.2) APTT (22.0-30.0) sec Sodium (137-145) mmol/L Potassium (3.5-5.1) mmol/L Chloride (98-107) mmol/L Carbon Dioxide (22-30) mmol/L Anion Gap mmol/L BUN (7-17) mg/dL Creatinine (0.52-1.04) mg/dL Est GFR (CKD-EPI)AfAm (>60 ml/min/1.73 sqM) Est GFR (CKD-EPI)NonAf (>60 ml/min/1.73 sqM) Glucose (74-99) mg/dL Calcium (8.4-10.2) mg/dL Magnesium (1.6-2.3) mg/dL Total Bilirubin (0.2-1.3) mg/dL AST (14-36) U/L ALT (9-52) U/L Alkaline Phosphatase (38-126) U/L Total Creatine Kinase (30-135) U/L CK-MB (CK-2) (0.0-2.4) ng/mL CK-MB (CK-2) Rel Index Troponin I (0.000-0.034) ng/mL NT-Pro-B Natriuret Pep pg/mL Total Protein (6.3-8.2) g/dL Albumin (3.5-5.0) g/dL Lipase (23-300) U/L Urine Color Yellow Urine Appearance Cloudy H (Clear) Urine pH 6.0 (5.0-8.0) Ur Specific [place] 1.022 (1.001-1.035) Urine Protein 1+ H (Negative) Urine Glucose (UA) Negative (Negative) Urine Ketones Negative (Negative) Urine Blood Moderate H (Negative) Urine Nitrite Negative (Negative) Urine Bilirubin Negative (Negative) Urine Urobilinogen 6.0 (<2.0) mg/dL Ur Leukocyte Esterase Negative (Negative) Urine RBC 14 H (0-5) /hpf Urine WBC 6 H (0-5) /hpf Ur Squamous Epith Cells 14 H (0-4) /hpf Amorphous Sediment Rare H (None) /hpf Urine Bacteria Rare H (None) /hpf Hyaline Casts 7 H (0-2) /lpf Urine Mucus Occasional H (None) /hpf Urine HCG, Qual (Not Detectd) - Radiology Data Radiology results: report reviewed (Chest x-rays negative for acute disease), image reviewed Disposition Clinical Impression: Chest pain Disposition: HOME SELF-CARE Condition: Good Instructions: Chest Pain (ED) Referrals: Devaughn Marino MD [Primary Care Provider] - 1-2 days
[2017-09-12 03:47] LABS: Basophils % (A) 1 %; Eosinophils # (A) 0.2 k/uL (0-0.7); Eosinophils % (A) 5 %; HCT 41.6 % (34.0-46.0); Lymphocytes # (A) 0.6 k/uL (1.0-4.8); Lymphocytes % (A) 14 %; MCH 28.4 pg (25.0-35.0); MCHC 33.6 g/dL (31.0-37.0); MCV 84.7 fL (80.0-100.0); Mean Platelet Volume 8.8; Monocytes # (A) 0.3 k/uL (0-1.0); Monocytes % (A) 7 %; Neutrophils # (A) 3.1 k/uL (1.3-7.7); Neutrophils % (A) 71 %; Platelet Count 151 k/uL (150-450); RBC 4.91 m/uL (3.80-5.40); RDW 13.4 % (11.5-15.5); WBC 4.3 k/uL (3.8-10.6)
[2017-09-12 04:00] LABS: Partial Thromboplastin Time 25.3 sec (22.0-30.0)
[2017-09-12 04:05] LABS: ALT 17 U/L (9-52); AST 32 U/L (14-36); Albumin 4.2 g/dL (3.5-5.0); Alkaline Phosphatase 72 U/L (38-126); Anion Gap 13 mmol/L; Blood Urea Nitrogen 14 mg/dL (7-17); Calcium 9.5 mg/dL (8.4-10.2); Carbon Dioxide 21 mmol/L (22-30); Chloride 106 mmol/L (98-107); Glucose 96 mg/dL (74-99); Lipase 60 U/L (23-300); Magnesium 1.9 mg/dL (1.6-2.3); Potassium 4.1 mmol/L (3.5-5.1); Sodium 140 mmol/L (137-145); Total Bilirubin 1.3 mg/dL (0.2-1.3); Total Protein 7.3 g/dL (6.3-8.2)
[2017-09-12 04:08] LABS: Creatine Kinase 71 U/L (30-135)
[2017-09-12 04:12] LABS: INR 1.3 (<1.2); Prothrombin Time 12.5 sec (9.0-12.0)
[2017-09-12 04:22] LABS: Creatine Kinase MB 0.9 ng/mL (0.0-2.4); Troponin I <0.012 ng/mL (0.000-0.034)
--- NOTE | 2017-09-12 04:23 | XR ---
EXAMINATION TYPE: XR chest 2V DATE OF EXAM: 09/12/2017 COMPARISON: 08/31/2016 HISTORY: Chest pain TECHNIQUE: Frontal and lateral views of the chest are obtained. FINDINGS: There is no heart failure nor confluent pneumonic infiltrate. There are surgical clips ove r the mediastinum in the right paratracheal region. Heart appears enlarged. There is no pleural effus ion. There are chest leads. The bony thorax appears intact. IMPRESSION: Cardiomegaly. No heart failure. There is clearing of the pulmonary edema compared to old exam. Previous surgery. No pulmonary consolidation.
[2017-09-12 04:27] LABS: Amorphous Sediment,Urine Rare /hpf; Appearance,Urine Cloudy (Clear); Bacteria,Urine Rare /hpf; Bilirubin,Urine Negative (Negative); Blood,Urine Moderate (Negative); Color,Urine Yellow; Glucose,Urine (UA) Negative (Negative); Hyaline Casts,Urine 7 /lpf (0-2); Ketones,Urine Negative (Negative); Leukocyte Esterase,Urine Negative (Negative); Mucus,Urine Occasional /hpf; Nitrite,Urine Negative (Negative); Protein,Urine 1+ (Negative); RBC,Urine 14 /hpf (0-5); Specific Gravity,Urine 1.022 (1.001-1.035); Squamous Epithelial Cell,Urine 14 /hpf (0-4); WBC,Urine 6 /hpf (0-5)
[2017-09-12 05:15] VITALS: RESP 18
[2017-09-12] MEDS ORDERED: SODIUM CHLORIDE 0.9% 500 ML IV ONE (06:47)
[2017-09-12 07:52] VITALS: BP 88/62; PULSE 68; TEMP 97.8
== END 2017-09-12 07:49 | disposition home or self-care (01) ==
LOC: EEVIPCON 01:55 → EC 01:55
DX: R07.9 Chest pain, unspecified (principal); E07.9 Disorder of thyroid, unspecified; Z95.1 Presence of aortocoronary bypass graft; Z98.890 Other specified postprocedural states; Z79.01 Long term (current) use of anticoagulants; Z79.82 Long term (current) use of aspirin; Z79.899 Other long term (current) drug therapy; Z88.8 Allergy status to other drugs, medicaments and biological substances; Z91.010 Allergy to peanuts
CPT/HCPCS: 36415; 71046; 80053; 81001; 81025; 82550; 82553; 83690; 83735; 83880; 84484; 85025; 85610; 85730; 93005; 96360; 99285

== ENCOUNTER 2018-08-30 17:18 | Inpatient (IN) | payer OTHER ==
--- NOTE | 2018-08-30 17:26 | ED ---
Chest Pain HPI - General Stated Complaint: chest pain Source: RN notes reviewed, old records reviewed - History of Present Illness Initial Comments: This is a 37-year-old female the ER for not feeling well. Patient has pain in her chest. History of same a few months ago with no known diagnosis. States symptoms are resolved on her own denies drugs or alcohol abuse. No new medications. MD Complaint: chest pain, other (Palpitations) -: hour(s) Onset: during rest Pain Location: substernal, left chest Severity: mild Severity scale (1-10): 2 Consistency: constant Worsens With: nothing Anginal Symptoms: nausea, diaphoresis, dyspnea Other Symptoms: palpitations Treatments Prior to Arrival: none (Patient had adenosine) - Related Data Home Medications Medication Instructions Recorded Confirmed Albuterol Inhaler [Ventolin Hfa 1 - 2 puff INHALATION RT-Q6H PRN 05/17/14 Inhaler] Aspirin [Adult Low Dose Aspirin EC] 81 mg PO DAILY@1400 07/12/15 08/31/16 Spironolactone 50 mg PO BID 08/21/16 09/12/17 Levothyroxine Sodium [Synthroid] 100 mcg PO DAILY 08/31/16 09/12/17 Enoxaparin [Lovenox] 80 mg SQ DAILY 09/12/17 09/12/17 Sotalol [Betapace] 120 mg PO BID 09/12/17 09/12/17 Previous Rx's Medication Instructions Recorded Furosemide [Lasix] 40 mg PO BID@0900,1600 #60 tab 07/11/15 Allergies Allergy/AdvReac Type Severity Reaction Status Date / Time warfarin sodium Allergy Unknown Verified 08/30/18 18:47 [From Coumadin] peas AdvReac Diarrhea Verified 08/30/18 18:47 Review of Systems ROS Statement: Those systems with pertinent positive or pertinent negative responses have been documented in the HPI. ROS Other: All systems not noted in ROS Statement are negative. EKG Findings - EKG Comments: EKG Findings:: EKG shows sinus rhythm rate of 93, NM 140, QRS 150, QTC 606. Repeat. EKG shows SVT rate of 200, QRS 04, QTc 427 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 History of Any Multi-Drug Resistant Organisms: None Reported Past Surgical History: Coronary Bypass/CABG Additional Past Surgical History / Comment(s): D&C in November 2013, paracentesis, patient states her liver "went bad" after a miscarriage in 2013, Fontan 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 7 Past Anesthesia/Blood Transfusion Reactions: No Reported Reaction Past Psychological History: No Psychological Hx Reported Smoking Status: Never smoker Past Alcohol Use History: None Reported Past Drug Use History: None Reported - Past Family History Mother Family Medical History: Asthma, Cancer, Hyperlipidemia, Hypertension Additional Family Medical History / Comment(s): Mother had breast CA at age 52 Brother(s) Family Medical History: Asthma Father Family Medical History: Asthma General Exam General appearance: alert, in no apparent distress, anxious, in distress Head exam: Present: atraumatic, normocephalic, normal inspection Eye exam: Present: normal appearance, PERRL, EOMI. Absent: scleral icterus, conjunctival injection, periorbital swelling ENT exam: Present: normal exam, mucous membranes moist Neck exam: Present: normal inspection. Absent: tenderness, meningismus, lymphadenopathy Respiratory exam: Present: normal lung sounds bilaterally. Absent: respiratory distress, wheezes, rales, rhonchi, stridor Cardiovascular Exam: Present: normal rhythm, tachycardia, normal heart sounds. Absent: systolic murmur, diastolic murmur, rubs, gallop, clicks GI/Abdominal exam: Present: soft, normal bowel sounds. Absent: distended, tenderness, guarding, rebound, rigid Extremities exam: Present: normal inspection, full ROM, normal capillary refill. Absent: tenderness, pedal edema, joint swelling, calf tenderness Back exam: Present: normal inspection Neurological exam: Present: alert, oriented X3, CN II-XII intact Psychiatric exam: Present: normal affect, normal mood Skin exam: Present: warm, dry, intact, normal color. Absent: rash Course Vital Signs 08/30/18 08/30/18 17:19 17:33 Temperature 97.9 F Pulse Rate 102 H Pulse Rate [ 105 H Apical] Respiratory 20 Rate Blood Pressure 104/74 O2 Sat by Pulse 99 Oximetry Chest Pain MDM - MDM 37 female the ER with chest pain and palpitations, positive SVT. Patient was given 6 of adenosine by EMS recurrent SVT, 12 adenosine here in the ER and has resolution of symptoms. Patient will be placed on metoprolol and admitted for cardiology evaluation Critical Care Time Critical Care Time: Yes Total Critical Care Time: 31 Disposition Clinical Impression: SVT (supraventricular tachycardia) Disposition: ADMITTED IP TO THIS HOSP Condition: Fair Is patient prescribed a controlled substance at d/c from ED?: No Referrals: Devaughn Marino MD [Primary Care Provider] - 1-2 days
[2018-08-30] MEDS ORDERED: ADENOSINE 3 MG/ML 2 ML VIAL IVP STA (17:51)
[2018-08-30 18:08] LABS: Basophils % (A) 1 %; Eosinophils # (A) 0.2 k/uL (0-0.7); Eosinophils % (A) 2 %; HCT 47.2 % (34.0-46.0); HGB 15.3 gm/dL (11.4-16.0); Lymphocytes # (A) 0.7 k/uL (1.0-4.8); Lymphocytes % (A) 10 %; MCH 27.8 pg (25.0-35.0); MCHC 32.4 g/dL (31.0-37.0); MCV 85.9 fL (80.0-100.0); Mean Platelet Volume 8.2; Monocytes # (A) 0.3 k/uL (0-1.0); Monocytes % (A) 5 %; Neutrophils # (A) 5.6 k/uL (1.3-7.7); Neutrophils % (A) 82 %; Platelet Count 158 k/uL (150-450); RBC 5.49 m/uL (3.80-5.40); RDW 14.4 % (11.5-15.5); WBC 6.8 k/uL (3.8-10.6)
[2018-08-30 18:16] LABS: ALT 26 U/L (9-52); AST 27 U/L (14-36); Albumin 4.6 g/dL (3.5-5.0); Alkaline Phosphatase 74 U/L (38-126); Anion Gap 12 mmol/L; Blood Urea Nitrogen 11 mg/dL (7-17); Calcium 9.6 mg/dL (8.4-10.2); Carbon Dioxide 21 mmol/L (22-30); Chloride 107 mmol/L (98-107); Glucose 122 mg/dL (74-99); Lipase 61 U/L (23-300); Magnesium 1.9 mg/dL (1.6-2.3); Sodium 140 mmol/L (137-145); Total Bilirubin 1.4 mg/dL (0.2-1.3); Total Protein 7.8 g/dL (6.3-8.2)
[2018-08-30 18:28] LABS: INR 1.2 (<1.2); Partial Thromboplastin Time 24.2 sec (22.0-30.0); Prothrombin Time 12.3 sec (9.0-12.0)
[2018-08-30 18:33] LABS: D-Dimer 0.9 mg/L FEU (<0.60)
[2018-08-30] MEDS ORDERED: NITROGLYCERIN SL TABS 0.4 MG TAB SUBLINGUAL PRN (18:44)
--- NOTE | 2018-08-30 19:42 | CT ---
EXAMINATION TYPE: CT angio chest DATE OF EXAM: 08/30/2018 7:27 PM COMPARISON: 07/09/2015 HISTORY: Chest pain. CT DLP: 184.6 mGycm Automated exposure control for dose reduction was used. CONTRAST: CTA scan of the thorax is performed with IV Contrast, patient injected with 72ml mL of Isovue 370, pu lmonary embolism protocol. There are 3-D post processed images.. FINDINGS: There is slight coarsening of interstitial markings. There is groundglass interstitial infiltrate in the mid and lower lung mur[place]. Heart is enlarged. There are a few mediastinal lymph nodes that measur e up to 1 cm. There are left bronchial lymph nodes up to 1 cm. I see no filling defects in the pulmon dolly arteries. There is a large amount of free liver changes consistent with cirrhosis. Mild splenomegaly. Fluid in the abdomen. There is some reflux of the contrast into the inferior vena cava. There is no pleural ef fusion. There is no pericardial effusion. There is spurring in the thoracic spine. I see no bony dest ructive process. IMPRESSION: NO EVIDENCE OF PULMONARY EMBOLISM. INTERSTITIAL PULMONARY INFILTRATES COULD RELATE TO PULMONARY FIBRO SIS AND CONGESTIVE HEART FAILURE. MODERATE CARDIOMEGALY. MASSIVE ASCITES. ASCITES UNCHANGED. THERE IS CLEARING OF RIGHT PLEURAL EFFUSION COMPARED TO OLD EXAM.
--- NOTE | 2018-08-30 19:44 | XR ---
EXAMINATION TYPE: XR chest 2V DATE OF EXAM: 08/30/2018 COMPARISON: 09/12/2017 HISTORY: Chest pain TECHNIQUE: Frontal and lateral views of the chest are obtained. FINDINGS: Heart is enlarged. There is mild coarsening of interstitial markings. There are sternal wi res. There are chest leads. There is no evidence of pleural effusion. There is previous mediastinal s urgery. IMPRESSION: Cardiomegaly unchanged. Mild increased pulmonary interstitial density that is slightly m ore than last exam. No pleural fluid.
[2018-08-31 00:44] VITALS: BMI 25.9
[2018-08-31] MEDS: METOPROLOL TARTRATE 25 MG TAB PO SCH ×3 (00:56→19:59)
[2018-08-31] MEDS ORDERED: ENOXAPARIN 120 MG/0.8 ML SYRINGE SQ ONE (01:19)
[2018-08-31 07:32] LABS: Cholesterol 119 mg/dL (<200); HDL Cholesterol 29 mg/dL (40-60); LDL Cholesterol,Calculated 69 mg/dL (0-99); Triglycerides 107 mg/dL (<150)
[2018-08-31] MEDS: ASPIRIN 325 MG TAB PO SCH (09:48)
--- NOTE | 2018-08-31 10:56 | P.CRDCN ---
History of Present Illness Consult date: 08/31/18 Requesting physician: Devaughn Marino Consult reason: atrial flutter Chief complaint: Chest pain History of present illness: This is a 37-year-old female with known history of tricuspid atresia with hypoplastic right ventricle, status post Siobhan procedure which was performed at the age of 1 and a pH of 7. She also has history of atrial flutter , cardiac cirrhosis. Patient has undergone therapeutic paracentesis procedures. She follows with a supervisory cbp officer at [facility] according to her. She states that in December she was in the hospital there and underwent some type of procedure through her groin, she is unclear exactly of what it was, she states that she was either going to have a pacemaker placed or a patch of some sort. Exact details of what occurred on that admission we don't have right now we will get records of that. She presents to the hospital on this occasion with symptoms of chest discomfort with an associated feeling that her heart was racing fast. Her initial EKG on presentation here read as supraventricular tachycardia, appears it may be an atrial flutter with rapid ventricular response , patient was given adenosine 6 mg, 12 mg. The subsequent EKG showed an atrial flutter with a heart rate in the 90s. Repeat EKG performed after that showed atrial flutter with a heart rate of low 100s. She did have an EKG performed this morning which shows a sinus bradycardia with a first-degree AV block and nonspecific ST-T wave changes. X-ray on arrival here showed cardiomegaly, mild increased pulmonary interstitial density. A CTA of the chest was performed which did not reveal any evidence of pulmonary embolism, interstitial pulmonary infiltrates which could relate to pulmonary fibrosis and congestive heart failure. Moderate cardiomegaly. Massive ascites, there was a clearing of her right pleural effusion as compared with old exam. Blood pressure on arrival here 104/70 with a heart rate of 200. Her blood pressure this morning is 92/50 with a heart rate in the 60s, 91% on room air. White blood cell count 6.8, hemoglobin 15.3, platelet count 158. D-dimer 0.9. Sodium 140, potassium 4.0, BUN 11 and creatinine 0.8. BNP level 4070. Troponins 0.018, 1.5, 0.792. The patient's home medications included Aldactone, Betapace, Synthroid, Lasix 40 twice a day, and Lovenox 120 daily. Patient states she's not been taking her medications regularly at home, she does have some history with noncompliance in the past. She denies any chest discomfort this morning. 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 7 Past Anesthesia/Blood Transfusion Reactions: No Reported Reaction Past Psychological History: No Psychological Hx Reported Smoking Status: Never smoker Past Alcohol Use History: None Reported Past Drug Use History: None Reported - Past Family History Mother Family Medical History: Asthma, Cancer, Hyperlipidemia, Hypertension Additional Family Medical History / Comment(s): Mother had breast CA at age 52 Brother(s) Family Medical History: Asthma Father Family Medical History: Asthma Medications and Allergies Home Medications Medication Instructions Recorded Confirmed Type Furosemide [Lasix] 40 mg PO BID@0900,1600 #60 tab 07/11/15 08/30/18 Rx Spironolactone 50 mg PO BID 08/21/16 08/30/18 History Sotalol [Betapace] 120 mg PO BID 09/12/17 08/30/18 History Enoxaparin [Lovenox] 120 mg SQ HS 08/30/18 08/30/18 History Levothyroxine Sodium [Synthroid] 75 mcg PO DAILY 08/30/18 08/30/18 History Allergies Allergy/AdvReac Type Severity Reaction Status Date / Time warfarin sodium Allergy Unknown Verified 08/30/18 18:47 [From Coumadin] peas AdvReac Diarrhea Verified 08/30/18 18:47 Physical Exam Vitals: Vital Signs Temp Pulse Pulse Pulse Resp BP BP 08/31/18 08:00 97.5 F L 63 16 91/55 08/31/18 04:00 98.2 F 86 55 L 18 113/69 08/31/18 00:00 98.4 F 86 86 18 121/75 08/30/18 23:35 98.5 F 08/30/18 22:30 105/68 08/30/18 22:00 93/74 08/30/18 21:30 106/77 08/30/18 21:00 82 96/72 08/30/18 20:58 98.4 F 86 18 121/75 08/30/18 20:30 82 103/69 08/30/18 20:00 80 97/83 08/30/18 19:30 89 99/73 08/30/18 19:00 68 25 H 101/69 08/30/18 18:44 08/30/18 18:30 67 20 95/72 08/30/18 18:00 200 H 23 92/73 08/30/18 17:33 97.9 F 102 H 20 104/74 08/30/18 17:30 104/74 08/30/18 17:28 08/30/18 17:19 105 H Pulse Ox 08/31/18 08:00 91 L 08/31/18 04:00 94 L 08/31/18 00:00 98 08/30/18 23:35 08/30/18 22:30 99 08/30/18 22:00 97 08/30/18 21:30 100 08/30/18 21:00 91 L 08/30/18 20:58 98 08/30/18 20:30 97 08/30/18 20:00 100 08/30/18 19:30 99 08/30/18 19:00 99 08/30/18 18:44 97 08/30/18 18:30 100 08/30/18 18:00 98 08/30/18 17:33 99 08/30/18 17:30 99 08/30/18 17:28 99 08/30/18 17:19 Intake and Output 08/30/18 08/31/18 08/31/18 22:59 06:59 14:59 Intake Total 240 240 Output Total 200 Balance 40 240 Intake: Oral 240 240 Output: Urine 200 Other: # Voids 1 Weight 60.4 kg 56.2 kg PHYSICAL EXAMINATION: GENERAL: 37-year-old female in no acute distress at the time of my examination HEENT: Head is atraumatic, normocephalic. Pupils equal, round. Sclera anicteric. Conjunctiva are clear. Mucous membranes of the mouth are moist. Neck is supple. There is elevated jugular venous pressure. HEART EXAMINATION: Heart S1 and S2 systolic murmur is heard CHEST EXAMINATION: lungs reveal coarse crackles to bilateral bases ABDOMEN: Soft, distended, positive hepatomegaly positive ascites . EXTREMITIES: 2+ peripheral pulses with trace evidence of peripheral edema and no calf tenderness noted. NEUROLOGIC patient is awake, alert and oriented 3 . . Results 08/30/18 17:48 08/30/18 17:48 Cardiac Enzymes 08/30/18 08/30/18 08/30/18 Range/Units 17:48 17:48 23:50 AST 27 (14-36) U/L Troponin I 0.018 1.540 H* (0.000-0.034) ng/mL 08/31/18 Range/Units 06:48 AST (14-36) U/L Troponin I 0.792 H* (0.000-0.034) ng/mL Coagulation 08/30/18 Range/Units 17:48 PT 12.3 H (9.0-12.0) sec APTT 24.2 (22.0-30.0) sec Lipids 08/31/18 Range/Units 06:48 Triglycerides 107 (<150) mg/dL Cholesterol 119 (<200) mg/dL HDL Cholesterol 29 L (40-60) mg/dL CBC 08/30/18 Range/Units 17:48 WBC 6.8 (3.8-10.6) k/uL RBC 5.49 H (3.80-5.40) m/uL Hgb 15.3 (11.4-16.0) gm/dL Hct 47.2 H (34.0-46.0) % Plt Count 158 (150-450) k/uL Comprehensive Metabolic Panel 08/30/18 Range/Units 17:48 Sodium 140 (137-145) mmol/L Potassium 4.0 (3.5-5.1) mmol/L Chloride 107 (98-107) mmol/L Carbon Dioxide 21 L (22-30) mmol/L BUN 11 (7-17) mg/dL Creatinine 0.81 (0.52-1.04) mg/dL Glucose 122 H (74-99) mg/dL Calcium 9.6 (8.4-10.2) mg/dL AST 27 (14-36) U/L ALT 26 (9-52) U/L Alkaline Phosphatase 74 (38-126) U/L Total Protein 7.8 (6.3-8.2) g/dL Albumin 4.6 (3.5-5.0) g/dL Current Medications Generic Name Dose Route Start Last Admin Trade Name Freq PRN Reason Stop Dose Admin Aspirin 325 mg 08/31/18 09:00 08/31/18 09:48 Aspirin PO 325 mg DAILY PIOTR Administration Metoprolol Tartrate 25 mg 08/30/18 21:00 08/31/18 09:48 Lopressor PO 25 mg BID PIOTR Administration Nitroglycerin 0.4 mg 08/30/18 18:44 Nitrostat SUBLINGUAL Q5M PRN Chest Pain Intake and Output 08/30/18 08/31/18 08/31/18 22:59 06:59 14:59 Intake Total 240 240 Output Total 200 Balance 40 240 Intake: Oral 240 240 Output: Urine 200 Other: # Voids 1 Weight 60.4 kg 56.2 kg 08/30/18 17:48 08/30/18 17:48 EKG Interpretations (text) Initial EKG showed atrial flutter with rapid ventricular response, subsequent EKG showed atrial flutter with controlled ventricular response. Assessment and Plan Plan: Assessment and plan #1 atrial flutter, typical, with rapid ventricular response, currently the patient is in normal sinus rhythm. 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 Obtain an echo. We recommend the patient follow-up with her supervisory cbp officer at [facility]. DNP note has been reviewed, I agree with a documented findings and plan of care. Patient was seen and examined.
--- NOTE | 2018-08-31 12:58 | P.HPIM ---
History of Present Illness H&P Date: 08/31/18 This is a 30-year-old female patient who presented to the emergency room with complaints of generalized not feeling well and pain in chest. At time of admission patient was found to be in SVT. Patient was given adenosine. She reports similar incident happened a few months ago in which she coughed and symptoms resolved. Additional medical history atrial flutter, asthma, liver disease in which he follows with Dr. Wilkes, hypothyroidism and patent procedure for congenital heart defect at age 1 and age 7. Patient also has elevated troponins at 1.540 and 0.792. Cardiology services have been consulted. D- dimer elevated at 0.9. CTA of chest performed showing no evidence of pulmonary embolism. Interstitial pulmonary infiltrates could relate to pulmonary fibrosis and congestive heart failure. Moderate cardiomegaly. Massive ascites. Ascites unchanged there is clearing of right pleural effusion compared to Old exam. Repeat EKG after adenosine administration showing sinus tachycardia with possible left atrial enlargement. At this time patient is resting comfortably in bed. Patient denies chest pain or shortness breath. Patient denies nausea vomiting or diarrhea. Patient denies burning or frequency Review of Systems Please refer to HPI otherwise unremarkable 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 History of Any Multi-Drug Resistant Organisms: None Reported Past Surgical History: Coronary Bypass/CABG Additional Past Surgical History / Comment(s): D&C in November 2013, paracentesis, patient states her liver "went bad" after a miscarriage in 2013, Fontan 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 7 Past Anesthesia/Blood Transfusion Reactions: No Reported Reaction Past Psychological History: No Psychological Hx Reported Smoking Status: Never smoker Past Alcohol Use History: None Reported Past Drug Use History: None Reported - Past Family History Mother Family Medical History: Asthma, Cancer, Hyperlipidemia, Hypertension Additional Family Medical History / Comment(s): Mother had breast CA at age 52 Brother(s) Family Medical History: Asthma Father Family Medical History: Asthma Medications and Allergies Home Medications Medication Instructions Recorded Confirmed Type Furosemide [Lasix] 40 mg PO BID@0900,1600 #60 tab 07/11/15 08/30/18 Rx Spironolactone 50 mg PO BID 08/21/16 08/30/18 History Sotalol [Betapace] 120 mg PO BID 09/12/17 08/30/18 History Enoxaparin [Lovenox] 120 mg SQ HS 08/30/18 08/30/18 History Levothyroxine Sodium [Synthroid] 75 mcg PO DAILY 08/30/18 08/30/18 History Allergies Allergy/AdvReac Type Severity Reaction Status Date / Time warfarin sodium Allergy Unknown Verified 08/30/18 18:47 [From Coumadin] peas AdvReac Diarrhea Verified 08/30/18 18:47 Physical Exam Vitals: Vital Signs Temp Pulse Pulse Pulse Resp BP BP 08/31/18 12:00 60 16 94/38 08/31/18 08:00 97.5 F L 63 16 91/55 08/31/18 04:00 98.2 F 86 55 L 18 113/69 08/31/18 00:00 98.4 F 86 86 18 121/75 08/30/18 23:35 98.5 F 08/30/18 22:30 105/68 08/30/18 22:00 93/74 08/30/18 21:30 106/77 08/30/18 21:00 82 96/72 08/30/18 20:58 98.4 F 86 18 121/75 08/30/18 20:30 82 103/69 08/30/18 20:00 80 97/83 08/30/18 19:30 89 99/73 08/30/18 19:00 68 25 H 101/69 08/30/18 18:44 08/30/18 18:30 67 20 95/72 08/30/18 18:00 200 H 23 92/73 08/30/18 17:33 97.9 F 102 H 20 104/74 08/30/18 17:30 104/74 08/30/18 17:28 08/30/18 17:19 105 H Pulse Ox 08/31/18 12:00 95 08/31/18 08:00 91 L 08/31/18 04:00 94 L 08/31/18 00:00 98 08/30/18 23:35 08/30/18 22:30 99 08/30/18 22:00 97 08/30/18 21:30 100 08/30/18 21:00 91 L 08/30/18 20:58 98 08/30/18 20:30 97 08/30/18 20:00 100 08/30/18 19:30 99 08/30/18 19:00 99 08/30/18 18:44 97 08/30/18 18:30 100 08/30/18 18:00 98 08/30/18 17:33 99 08/30/18 17:30 99 08/30/18 17:28 99 08/30/18 17:19 Intake and Output 08/30/18 08/31/18 08/31/18 22:59 06:59 14:59 Intake Total 240 240 Output Total 200 Balance 40 240 Intake: Oral 240 240 Output: Urine 200 Other: # Voids 1 1 Weight 60.4 kg 56.2 kg Head normocephalic Neck supple Lungs clear to auscultation bilaterally no wheezing or crackles Heart regular rate and rhythm S1-S2, no rub or gallop Abdomen abdominal ascites Extremities no edema Neuro alert and orientated to 3 Results CBC & Chem 7: 08/30/18 17:48 08/30/18 17:48 Labs: Abnormal Lab Results - Last 24 Hours (Table) 08/30/18 08/30/18 08/30/18 Range/Units 17:48 17:48 17:48 RBC 5.49 H (3.80-5.40) m/uL Hct 47.2 H (34.0-46.0) % Lymphocytes # 0.7 L (1.0-4.8) k/uL PT 12.3 H (9.0-12.0) sec INR 1.2 H (<1.2) D-Dimer 0.90 H (<0.60) mg/L FEU Carbon Dioxide 21 L (22-30) mmol/L Glucose 122 H (74-99) mg/dL Total Bilirubin 1.4 H (0.2-1.3) mg/dL Troponin I (0.000-0.034) ng/mL HDL Cholesterol (40-60) mg/dL 08/30/18 08/31/18 08/31/18 Range/Units 23:50 06:48 06:48 RBC (3.80-5.40) m/uL Hct (34.0-46.0) % Lymphocytes # (1.0-4.8) k/uL PT (9.0-12.0) sec INR (<1.2) D-Dimer (<0.60) mg/L FEU Carbon Dioxide (22-30) mmol/L Glucose (74-99) mg/dL Total Bilirubin (0.2-1.3) mg/dL Troponin I 1.540 H* 0.792 H* (0.000-0.034) ng/mL HDL Cholesterol 29 L (40-60) mg/dL Thrombosis Risk Factor Assmnt - Choose All That Apply Any of the Below Risk Factors Present?: No Other Risk Factors: No Thrombosis Risk Factor Assessment Level: Very Low Risk Assessment and Plan Assessment: 1. Atrial flutter, with rapid ventricular response, typical, with rapid ventricular response. Cardiology services have consulted. Patient's repeat EKG showing sinus tachycardia with possible left atrial enlargement. Metroprolol has been added per cardiology 2. Elevated troponins. Troponins 1.540 and 0.792. Per cardiology this is likely secondary to atrial flutter with rapid ventricular response 3. Elevated d-dimer. D-dimer 0.90. CTA performed showing no evidence of pulmonary embolism. Interstitial pulmonary infiltrates. Carotid relate to pulmonary fibrosis and congestive heart failure. Moderate cardiomegaly. Massive ascites. Ascites unchanged. There is clearing of right pleural effusion compared to old exam 4. Cardiogenic liver cirrhosis. Patient reports she follows with Dr. Nix. Patient has required paracentesis in the past 5. 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 Hypothyroidism. Synthroid resumed 7. History of paroxysmal atrial flutter 8. History of social issues with noncompliance with medication Time with Patient: Greater than 30 (Greater than 60% of the total time spent in counseling and coordination of care. I performed an examination of the patient and discussed their management with the Nurse Practitioner. I have reviewed the Nurse Practitioner's notes and agree with the documented findings and plan of care)
[2018-08-31] MEDS: FUROSEMIDE 40 MG TAB PO SCH (15:55)
--- NOTE | 2018-08-31 16:41 | ECHOF ---
Referral Reason:aflutter MEASUREMENTS -------- HEIGHT: 152.4 cm WEIGHT: 55.8 kg BP: IVSd: 1.2 cm (0.6 - 1.1) LVIDd: 4.2 cm (3.9 - 5.3) LVPWd: 1.2 cm (0.6 - 1.1) IVSs: 1.5 cm LVIDs: 3.1 cm LVPWs: 1.5 cm LA Diam: 3.6 cm (2.7 - 3.8) MV EXCURSION: 16.312 mm (> 18.000) MV EF SLOPE: 55 mm/s (70 - 150) EPSS: 0.3 cm MV E Kit: 0.61 m/s MV DecT: 202 ms MV A Kit: 0.30 m/s MV E/A Ratio: 2.01 AR PHT: 486 ms FINDINGS -------- Sinus rhythm. Pt had the Fontan Procedure. There is mild concentric left ventricular hypertrophy. Overall left ventricular systolic function i s low-normal with, an EF between 50 - 55 %. The left atrial size is normal. The right atrium is mildly enlarged. There is mild aortic regurgitation. Mild mitral annular calcification present. Mild mitral regurgitation is present. There is no pericardial effusion. CONCLUSIONS -------- 1. Pt had the Fontan Procedure. 2. There is mild concentric left ventricular hypertrophy. 3. Overall left ventricular systolic function is low-normal with, an EF between 50 - 55 %. 4. The left atrial size is normal. 5. The right atrium is mildly enlarged. 6. There is mild aortic regurgitation. 7. Mild mitral annular calcification present. 8. Mild mitral regurgitation is present. 9. There is no pericardial effusion. COFFEE MACHINE TECHNICIAN: Elma Johnson RDCS
[2018-08-31] MEDS: SOTALOL 120 MG TAB PO SCH (19:59)
[2018-08-31] MEDS: SPIRONOLACTONE 25 MG TAB PO SCH (20:04)
[2018-09-01 01:13] VITALS: RESP 16
[2018-09-01] MEDS ORDERED: LEVOTHYROXINE 75 MCG TAB PO SCH (06:30)
[2018-09-01] MEDS ORDERED: PANTOPRAZOLE 40 MG TABLET PO SCH (07:30)
[2018-09-01 07:49] LABS: Basophils % (A) 1 %; Eosinophils # (A) 0.2 k/uL (0-0.7); Eosinophils % (A) 4 %; HCT 39.9 % (34.0-46.0); HGB 12.6 gm/dL (11.4-16.0); Lymphocytes # (A) 0.7 k/uL (1.0-4.8); Lymphocytes % (A) 18 %; MCH 27.1 pg (25.0-35.0); MCHC 31.7 g/dL (31.0-37.0); MCV 85.5 fL (80.0-100.0); Mean Platelet Volume 9.4; Monocytes # (A) 0.3 k/uL (0-1.0); Monocytes % (A) 8 %; Neutrophils # (A) 2.6 k/uL (1.3-7.7); Neutrophils % (A) 68 %; Platelet Count 120 k/uL (150-450); RBC 4.66 m/uL (3.80-5.40); RDW 14.5 % (11.5-15.5); WBC 3.9 k/uL (3.8-10.6)
[2018-09-01 08:00] LABS: ALT 27 U/L (9-52); AST 19 U/L (14-36); Albumin 3.8 g/dL (3.5-5.0); Alkaline Phosphatase 58 U/L (38-126); Anion Gap 9 mmol/L; Blood Urea Nitrogen 16 mg/dL (7-17); Calcium 9.1 mg/dL (8.4-10.2); Carbon Dioxide 23 mmol/L (22-30); Chloride 107 mmol/L (98-107); Glucose 105 mg/dL (74-99); Potassium 4.3 mmol/L (3.5-5.1); Sodium 139 mmol/L (137-145); Total Bilirubin 0.6 mg/dL (0.2-1.3); Total Protein 6.6 g/dL (6.3-8.2)
[2018-09-01] MEDS: METOPROLOL TARTRATE 25 MG TAB PO SCH (08:31)
[2018-09-01] MEDS: SOTALOL 120 MG TAB PO SCH (08:31)
[2018-09-01] MEDS: ASPIRIN 325 MG TAB PO SCH (08:31)
[2018-09-01] MEDS: SPIRONOLACTONE 25 MG TAB PO SCH (08:32)
[2018-09-01] MEDS: FUROSEMIDE 40 MG TAB PO SCH (08:32)
[2018-09-01] MEDS ORDERED: ENOXAPARIN 40 MG/0.4 ML SYRINGE SQ SCH (09:00)
[2018-09-01 09:21] VITALS: TEMP 98.2
--- NOTE | 2018-09-01 14:02 | XR ---
EXAMINATION TYPE: XR chest 2V DATE OF EXAM: 09/01/2018 COMPARISON: Chest x-ray and CTA chest from 2 days ago. HISTORY: Increased congestion. TECHNIQUE: Frontal and lateral views of the chest are obtained. FINDINGS: Overlying sternal wires and mediastinal clips are redemonstrated . Third sternal wire is br oken similar to prior studies. There is no focal air space opacity, pleural effusion, or pneumothorax seen. The cardiac silhouette size remains enlarged. Bilateral rib deformities are redemonstrated. IMPRESSION: Cardiomegaly without acute pulmonary process. No significant change from prior studies.
--- NOTE | 2018-09-01 14:58 | P.PN ---
Subjective Progress Note Date: 09/01/18 This is a 37-year-old female with known history of tricuspid atresia with hypoplastic right ventricle, status post Siobhan procedure which was performed at the age of 1 and a pH of 7. She also has history of atrial flutter , cardiac cirrhosis. Patient has undergone therapeutic paracentesis procedures. She follows with a hand collator at [facility] according to her. She states that in December she was in the hospital there and underwent some type of procedure through her groin, she is unclear exactly of what it was, she states that she was either going to have a pacemaker placed or a patch of some sort. Exact details of what occurred on that admission we don't have right now we will get records of that. She presents to the hospital on this occasion with symptoms of chest discomfort with an associated feeling that her heart was racing fast. Her initial EKG on presentation here read as supraventricular tachycardia, appears it may be an atrial flutter with rapid ventricular response , patient was given adenosine 6 mg, 12 mg. The subsequent EKG showed an atrial flutter with a heart rate in the 90s. Repeat EKG performed after that showed atrial flutter with a heart rate of low 100s. She did have an EKG performed this morning which shows a sinus bradycardia with a first-degree AV block and nonspecific ST-T wave changes. X-ray on arrival here showed cardiomegaly, mild increased pulmonary interstitial density. A CTA of the chest was performed which did not reveal any evidence of pulmonary embolism, interstitial pulmonary infiltrates which could relate to pulmonary fibrosis and congestive heart failure. Moderate cardiomegaly. Massive ascites, there was a clearing of her right pleural effusion as compared with old exam. Blood pressure on arrival here 104/70 with a heart rate of 200. Her blood pressure this morning is 92/50 with a heart rate in the 60s, 91% on room air. White blood cell count 6.8, hemoglobin 15.3, platelet count 158. D-dimer 0.9. Sodium 140, potassium 4.0, BUN 11 and creatinine 0.8. BNP level 4070. Troponins 0.018, 1.5, 0.792. The patient's home medications included Aldactone, Betapace, Synthroid, Lasix 40 twice a day, and Lovenox 120 daily. Patient states she's not been taking her medications regularly at home, she does have some history with noncompliance in the past. She denies any chest discomfort this morning. 09/01/2018 Patient was seen and examined this morning, overall doing well. Her blood pressure was around 80 systolic, heart rate in the 60s, 96% on room air. Patient was asymptomatic. It is our recommendation that the patient be discharged home and follow-up with her hand collator at [facility] upon discharge. Objective - Vital Signs Vital signs: Vital Signs Temp 98.2 F 09/01/18 12:00 Pulse 59 L 09/01/18 12:00 Resp 16 09/01/18 12:00 BP 78/45 09/01/18 12:00 Pulse Ox 96 09/01/18 12:00 Intake & Output 08/31/18 09/01/18 09/01/18 18:59 06:59 18:59 Intake Total 444 462 Output Total 800 Balance 444 -338 Weight 55.3 kg Intake: Oral 444 462 Output: Urine 800 Other: # Voids 1 1 - Exam PHYSICAL EXAMINATION: GENERAL: 37-year-old female in no acute distress at the time of my examination HEENT: Head is atraumatic, normocephalic. Pupils equal, round. Sclera anicteric. Conjunctiva are clear. Mucous membranes of the mouth are moist. Neck is supple. There is elevated jugular venous pressure. HEART EXAMINATION: Heart S1 and S2 systolic murmur is heard CHEST EXAMINATION: lungs reveal coarse crackles to bilateral bases ABDOMEN: Soft, distended, positive hepatomegaly positive ascites . EXTREMITIES: 2+ peripheral pulses with trace evidence of peripheral edema and no calf tenderness noted. NEUROLOGIC patient is awake, alert and oriented 3 . . - Labs CBC & Chem 7: 09/01/18 07:00 09/01/18 07:00 Labs: Abnormal Lab Results - Last 24 Hours (Table) 09/01/18 09/01/18 Range/Units 07:00 07:00 Plt Count 120 L (150-450) k/uL Lymphocytes # 0.7 L (1.0-4.8) k/uL Glucose 105 H (74-99) mg/dL Assessment and Plan Plan: Assessment and plan #1 atrial flutter, typical, with rapid ventricular response, currently the patient is in normal sinus rhythm. 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 DNP note has been reviewed, I agree with a documented findings and plan of care. Patient was seen and examined.
[2018-09-01 15:48] VITALS: BP 97/61; PULSE 65
--- NOTE | 2018-09-01 15:59 | P.DS ---
Providers Date of admission: 08/30/18 18:47 Expected date of discharge: 09/01/18 Attending physician: Devaughn Marino Consults: 08/30/18 18:44 Consult Physician Urgent Consulting Provider: Haylee Suarez Consult Reason/Comments: svt Do you want consulting provider notified?: Yes Primary care physician: Devaughn [facility] Course: Discharge diagnosis 1. Atrial flutter, with rapid ventricular response, typical, with rapid ventricular response. Cardiology services have consulted. Patient's repeat EKG showing sinus tachycardia with possible left atrial enlargement. Patient has been cleared for discharge from cardiology standpoint. Cardiology services patient should follow-up with blind lacer at [facility]. 2. Elevated troponins. Troponins 1.540 and 0.792. Per cardiology this is likely secondary to atrial flutter with rapid ventricular response 3. Elevated d-dimer. D-dimer 0.90. CTA performed showing no evidence of pulmonary embolism. Interstitial pulmonary infiltrates. Carotid relate to pulmonary fibrosis and congestive heart failure. Moderate cardiomegaly. Massive ascites. Ascites unchanged. There is clearing of right pleural effusion compared to old exam 4. Cardiogenic liver cirrhosis. Patient reports she follows with Dr. Nix. Patient has required paracentesis in the past 5. 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 Hypothyroidism. Synthroid resumed TSH elevated at 11.01 increase Synthroid to 88mcg. Patient to follow-up with PCP for further management 7. History of paroxysmal atrial flutter 8. History of social issues with noncompliance with medication Hospital course This is a 30-year-old female patient who presented to the emergency room with complaints of generalized not feeling well and pain in chest. At time of admission patient was found to be in SVT. Patient was given adenosine. She reports similar incident happened a few months ago in which she coughed and symptoms resolved. Additional medical history atrial flutter, asthma, liver disease in which he follows with Dr. Wilkes, hypothyroidism and patent procedure for congenital heart defect at age 1 and age 7. Patient also has elevated troponins at 1.540 and 0.792. Cardiology services have been consulted. D- dimer elevated at 0.9. CTA of chest performed showing no evidence of pulmonary embolism. Interstitial pulmonary infiltrates could relate to pulmonary fibrosis and congestive heart failure. Moderate cardiomegaly. Massive ascites. Ascites unchanged there is clearing of right pleural effusion compared to Old exam. Repeat EKG after adenosine administration showing sinus tachycardia with possible left atrial enlargement. At this time patient is resting comfortably in bed. Patient denies chest pain or shortness breath. Patient denies nausea vomiting or diarrhea. Patient denies burning or frequency On 09/01/2018 patient's alert and oriented 3. Patient was having lorrie upper airway congestion. Chest x-ray reviewed showing cardiomegaly without acute pulmonary process. No significant change from prior studies. Patient did have low blood pressure in the 70s. No change is meds per cardiology. Blood pressure has improved. Cardiology services have cleared patient for discharge. Patient's Synthroid will be increased due to elevated TSH level. Patient should follow-up with PCP and blind lacer at [facility]. At this time patient denies chest pain or shortness breath. Patient denies nausea vomiting or diarrhea. Denies any urinary burning or frequency, I performed an examination of the patient and discussed their management with the Nurse Practitioner. I have reviewed the Nurse Practitioner's notes and agree with the documented findings and plan of care Patient Condition at Discharge: Stable Plan - Discharge Summary Discharge Rx Participant: No New Discharge Prescriptions: No Action Furosemide [Lasix] 40 mg PO BID@0900,1600 #60 tab Spironolactone 50 mg PO BID Sotalol [Betapace] 120 mg PO BID Levothyroxine Sodium [Synthroid] 75 mcg PO DAILY Enoxaparin [Lovenox] 120 mg SQ HS Discharge Medication List Furosemide [Lasix] 40 mg PO BID@0900,1600 #60 tab 07/11/15 [Rx] Spironolactone 50 mg PO BID 08/21/16 [History] Sotalol [Betapace] 120 mg PO BID 09/12/17 [History] Enoxaparin [Lovenox] 120 mg SQ HS 08/30/18 [History] Levothyroxine Sodium [Synthroid] 75 mcg PO DAILY 08/30/18 [History] Follow up Appointment(s)/Referral(s): Devaughn Marino MD [Primary Care Provider] - 1-2 days
== END 2018-09-01 17:18 | disposition home or self-care (01) | DRG 308 ==
LOC: EC 17:18 → 3SCARD 18:47 → EEVIPCON 18:47 → 3SCARD 23:58
PROVIDERS: ADMIT Internal Medicine; ATTEND Internal Medicine
DX: I48.3 Typical atrial flutter (principal); Q22.4 Congenital tricuspid stenosis; R18.8 Other ascites; E03.9 Hypothyroidism, unspecified; I44.0 Atrioventricular block, first degree; I47.1 Supraventricular tachycardia; I50.9 Heart failure, unspecified; J45.909 Unspecified asthma, uncomplicated; J84.10 Pulmonary fibrosis, unspecified; K76.1 Chronic passive congestion of liver; R79.1 Abnormal coagulation profile; R74.8 Abnormal levels of other serum enzymes; Z79.82 Long term (current) use of aspirin; Z79.890 Hormone replacement therapy; Z79.899 Other long term (current) drug therapy; Z79.01 Long term (current) use of anticoagulants; Z80.3 Family history of malignant neoplasm of breast; Z82.49 Family history of ischemic heart disease and other diseases of the circulatory system; Z82.5 Family history of asthma and other chronic lower respiratory diseases; Z91.19 Patient's noncompliance with other medical treatment and regimen; Z95.1 Presence of aortocoronary bypass graft; I25.10 Atherosclerotic heart disease of native coronary artery without angina pectoris; T50.906A Underdosing of unspecified drugs, medicaments and biological substances, initial encounter; Z91.128 Patient's intentional underdosing of medication regimen for other reason; Z88.8 Allergy status to other drugs, medicaments and biological substances; Z98.890 Other specified postprocedural states
CPT/HCPCS: 36415; 71046; 71275; 80053; 80061; 83690; 83735; 83880; 84443; 84484; 85025; 85379; 85610; 85730; 93005; 93306; 96374; 99291

== ENCOUNTER 2018-12-26 19:11 | Emergency (ER) | payer OTHER ==
[2018-12-26 19:51] VITALS: BP 84/66; PULSE 79; RESP 18; TEMP 98.4
--- NOTE | 2018-12-26 21:25 | ED ---
General Adult HPI - General Source: patient Mode of arrival: ambulatory Limitations: no limitations <Alejandro Noriega - Last Filed: 12/27/18 00:24> <Shavonne Johnson - Last Filed: 12/27/18 05:54> - General Chief complaint: Extremity Injury, Upper Stated complaint: LEFT THUMB SWELLING Time Seen by Provider: 12/26/18 20:33 - History of Present Illness Initial comments: Patient is a 38-year-old female presenting to emergency Department with left thumb pain. Patient states the pain started 2 days ago and has not resolved. Patient reports pain is alleviated with rest and exacerbated with movement. Patient reports the pain does not radiate anywhere. Patient reports numbness and tingling on the thumb. Patient denies taking medication to relieve the pain. Patient reports that she please videogames often on her phone and uses her left hand. Patient reports using the left thumb the most when emelyn. Johnson gnozalez denies any skin discoloration, erythema or swelling. (Alejandro Noriega) - Related Data Home Medications Medication Instructions Recorded Confirmed Spironolactone 50 mg PO BID 08/21/16 08/30/18 Sotalol [Betapace] 120 mg PO BID 09/12/17 08/30/18 Enoxaparin [Lovenox] 120 mg SQ HS 08/30/18 08/30/18 Previous Rx's Medication Instructions Recorded Furosemide [Lasix] 40 mg PO BID@0900,1600 #60 tab 07/11/15 Levothyroxine Sodium [Synthroid] 88 mcg PO DAILY 30 Days #30 tab 09/01/18 Allergies Allergy/AdvReac Type Severity Reaction Status Date / Time warfarin sodium Allergy Unknown Verified 12/26/18 19:51 [From Coumadin] peas AdvReac Diarrhea Verified 12/26/18 19:51 Review of Systems ROS Other: All systems not noted in ROS Statement are negative. <Alejandro Noriega - Last Filed: 12/27/18 00:24> ROS Other: All systems not noted in ROS Statement are negative. <Shavonne Johnson - Last Filed: 12/27/18 05:54> ROS Statement: Those systems with pertinent positive or pertinent negative responses have been documented in the HPI. 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 7, Past Anesthesia/Blood Transfusion Reactions: No Reported Reaction Past Psychological History: No Psychological Hx Reported Smoking Status: Never smoker Past Alcohol Use History: None Reported Past Drug Use History: None Reported - Past Family History Mother Family Medical History: Asthma, Cancer, Hyperlipidemia, Hypertension Additional Family Medical History / Comment(s): Mother had breast CA at age 52 Brother(s) Family Medical History: Asthma Father Family Medical History: Asthma <Alejandro Noriega Last Filed: 12/27/18 00:24> General Exam Limitations: no limitations General appearance: alert, in no apparent distress Head exam: Present: atraumatic, normocephalic, normal inspection Eye exam: Present: normal appearance, PERRL, EOMI Pupils: Present: normal accommodation ENT exam: Present: normal exam, mucous membranes moist Neck exam: Present: normal inspection, full ROM Respiratory exam: Present: normal lung sounds bilaterally Cardiovascular Exam: Present: regular rate, normal rhythm, normal heart sounds Extremities exam: Present: normal inspection, full ROM, tenderness (Tenderness along anatomical snuffbox.), normal capillary refill, other (+2 ulnar and radial pulses, bilaterally. Positive phalen and and Accord test.) Back exam: Present: normal inspection, full ROM Neurological exam: Present: alert, oriented X3 Psychiatric exam: Present: normal affect, normal mood Skin exam: Present: warm, intact, normal color <Alejandro Noriega Last Filed: 12/27/18 00:24> Course Vital Signs 12/26/18 12/26/18 19:47 21:21 Temperature 98.4 F 98.4 F Pulse Rate 79 79 Respiratory 18 18 Rate Blood Pressure 84/66 84/66 O2 Sat by Pulse 96 96 Oximetry Procedures - Orthopedic Splinting/Casting Injury #1 Side: left Upper Extremity Injury Location: finger (Left first digit) Upper Extremity Immobilizer: Farhat wrap <Alejandro Noriega - Last Filed: 12/27/18 00:24> Medical Decision Making <Alejandro Noriega - Last Filed: 12/27/18 00:24> <Shavonne Johnson - Last Filed: 12/27/18 05:54> - Medical Decision Making Patient is a 30-year-old male presents emergency Department with left thumb pain. X-rays negative for acute fracture-dislocations. Based on history and physical examination suspect the patient to have a carpal tunnel. Farhat wrap was placed on the left hand. Patient advised to have a follow-up x-ray in a week. Patient advised to follow-up with orthopedics. Patient advised to alternate between Tylenol ibuprofen for pain control. Patient advised to obtain a carpal tunnel brace. Patient advised to keep cold compresses in the area of pain. Strict return parameters with her discussed with patient was agreeable and understandable. Case discussed with physician. (Alejandro Noriega) I was available for consultation in the emergency department. The history and physical exam were done by the midlevel provider. I was consulted for this patient's care. I reviewed the case with the midlevel provider and based on their presentation of the patient, I agree with the assessment, medical decision making and plan of care as documented. Chart was dictated using [employer] dictation software. Attempts were made to correct any dictation errors however some typographical errors may persist. (Shavonne Johnson) Disposition Is patient prescribed a controlled substance at d/c from ED?: No Time of Disposition: 21:17 <Alejandro Noriega - Last Filed: 12/27/18 00:24> <Shavonne Johnson - Last Filed: 12/27/18 05:54> Clinical Impression: Carpal tunnel syndrome of left wrist Disposition: HOME SELF-CARE Condition: Stable Instructions (If sedation given, give patient instructions): Carpal Tunnel Surgery (DC) Additional Instructions: Please return for follow-up x-ray in 7 days. Please use carpal tunnel brace to alleviate pain. Alternate between Tylenol for pain control. Keep ice over compress in the area to alleviate pain. Please follow with primary care. Please return to emergency department if symptoms worsen. Referrals: Devaughn Marino MD [Primary Care Provider] - 1-2 days Teodoro Parikh DO [Medical Doctor] - 1-2 days
--- NOTE | 2018-12-26 22:08 | XR ---
PROCEDURE: XR hand limited LT - 2 views DATE AND TIME: 12/26/2018 9:05 PM CLINICAL INDICATION: Left thumb pain and swelling TECHNIQUE: Department protocol COMPARISON: 10/28/2012 FINDINGS: Bones and joints and soft tissues are unremarkable. No radiopaque foreign bodies. IMPRESSION: NO ACUTE PROCESS.
== END 2018-12-26 21:34 | disposition home or self-care (01) ==
LOC: EC 19:11
DX: G56.02 Carpal tunnel syndrome, left upper limb (principal); I48.91 Unspecified atrial fibrillation; Z79.01 Long term (current) use of anticoagulants; Z79.899 Other long term (current) drug therapy; Z91.018 Allergy to other foods; Z88.8 Allergy status to other drugs, medicaments and biological substances; Z95.1 Presence of aortocoronary bypass graft
CPT/HCPCS: 99283

== ENCOUNTER 2019-01-12 19:27 | Emergency (ER) | payer OTHER ==
[2019-01-12 19:57] VITALS: TEMP 97.9
[2019-01-12 20:22] LABS: Amorphous Sediment,Urine Occasional /hpf; Appearance,Urine Cloudy (Clear); Bilirubin,Urine Negative (Negative); Blood,Urine Negative (Negative); Color,Urine Yellow; Glucose,Urine (UA) Negative (Negative); Ketones,Urine Negative (Negative); Leukocyte Esterase,Urine Trace (Negative); Mucus,Urine Rare /hpf; Nitrite,Urine Negative (Negative); Protein,Urine Trace (Negative); RBC,Urine 4 /hpf (0-5); Specific Gravity,Urine 1.018 (1.001-1.035); Squamous Epithelial Cell,Urine 36 /hpf (0-4); WBC,Urine 7 /hpf (0-5)
[2019-01-12] MEDS ORDERED: SODIUM CHLORIDE 0.9% 500 ML 500 ML IV STA (20:30)
[2019-01-12 20:43] LABS: Basophils % (A) 1 %; Eosinophils # (A) 0.2 k/uL (0-0.7); Eosinophils % (A) 3 %; HCT 48.5 % (34.0-46.0); HGB 15.8 gm/dL (11.4-16.0); Lymphocytes # (A) 0.7 k/uL (1.0-4.8); Lymphocytes % (A) 14 %; MCH 27.9 pg (25.0-35.0); MCHC 32.7 g/dL (31.0-37.0); MCV 85.2 fL (80.0-100.0); Mean Platelet Volume 8.8; Monocytes # (A) 0.3 k/uL (0-1.0); Monocytes % (A) 6 %; Neutrophils # (A) 3.6 k/uL (1.3-7.7); Neutrophils % (A) 75 %; Platelet Count 138 k/uL (150-450); RBC 5.69 m/uL (3.80-5.40); RDW 14.9 % (11.5-15.5); WBC 4.7 k/uL (3.8-10.6)
[2019-01-12 20:46] LABS: Amphetamine Screen,Urine Not Detected (NotDetected); Barbiturate Screen,Urine Not Detected (NotDetected); Benzodiazepines Screen,Urine Not Detected (NotDetected); Cocaine Screen,Urine Not Detected (NotDetected); Methadone Screen, Urine Not Detected (NotDetected); Opiate Screen,Urine Not Detected (NotDetected); Oxycodone Screen, Urine Not Detected (NotDetected); Phencyclidine Screen,Urine Not Detected (NotDetected); Tricyclic Antidepressant,Urine Not Detected (NotDetected); Urn Cannabinoid Scrn Not Detected (NotDetected)
[2019-01-12 20:51] LABS: INR 1.1 (<1.2); Partial Thromboplastin Time 26.3 sec (22.0-30.0); Prothrombin Time 11.7 sec (9.0-12.0)
[2019-01-12 20:53] LABS: African American GFR (CKD) >90 (>60 ml/min/1.73 sqM); Albumin 4.5 g/dL (3.5-5.0); Amylase 55 U/L (30-110); Anion Gap 11 mmol/L; Blood Urea Nitrogen 10 mg/dL (7-17); Calcium 9.3 mg/dL (8.4-10.2); Carbon Dioxide 22 mmol/L (22-30); Chloride 105 mmol/L (98-107); Glucose 85 mg/dL (74-99); Lipase 46 U/L (23-300); Sodium 138 mmol/L (137-145); Total Bilirubin 1.3 mg/dL (0.2-1.3); Total Protein 7.8 g/dL (6.3-8.2)
[2019-01-12 20:54] LABS: ALT 14 U/L (9-52); AST 33 U/L (14-36); Alkaline Phosphatase 54 U/L (38-126); Magnesium 2.1 mg/dL (1.6-2.3); Potassium 4.4 mmol/L (3.5-5.1)
--- NOTE | 2019-01-12 20:56 | XR ---
EXAMINATION TYPE: XR chest 2V DATE OF EXAM: 01/12/2019 COMPARISON: 09/01/2018 HISTORY: Dysrhythmia. TECHNIQUE: Frontal and lateral views of the chest are obtained. FINDINGS: There is no heart failure nor confluent pneumonic infiltrate. Costophrenic angles are gilma r. There are sternal wires. There are chest leads. Mediastinum is within normal limits. IMPRESSION: No active cardiopulmonary disease. No change.
[2019-01-12 21:49] LABS: T4, Free (Free Thyroxine) 0.99 ng/dL (0.78-2.19)
--- NOTE | 2019-01-12 22:53 | ED ---
Abdominal Pain HPI - General Chief Complaint: Abdominal Pain Stated Complaint: 7 weeks , cramping Time Seen by Provider: 01/12/19 20:04 Source: patient Mode of arrival: ambulatory Limitations: no limitations - History of Present Illness Initial Comments: 38-year-old female patient presents to the emergency department today for evaluation of lower abdominal pain. While waiting in the room to be evaluated by the physician developed sharp stabbing chest pain and felt short of breath. Patient was concerned she may have been . States her last period was 4 weeks ago. Patient states she has been trying to get so she did stop t aking her medications. Patient denies any nausea or vomiting today. She does report that on January 04 she vomited several times throughout the day with symptoms resolved. She denies any constipation or diarrhea. Denies any hematuria, dysuria, urinary frequency, urinary urgency. Patient denies any recent rash, fever, chills, back pain, numbness, tingling, dizziness, weakness, headache, visual changes, or any other complaints. - Related Data Home Medications Medication Instructions Recorded Confirmed Spironolactone 50 mg PO BID 08/21/16 08/30/18 Sotalol [Betapace] 120 mg PO BID 09/12/17 08/30/18 Enoxaparin [Lovenox] 120 mg SQ HS 08/30/18 08/30/18 Previous Rx's Medication Instructions Recorded Furosemide [Lasix] 40 mg PO BID@0900,1600 #60 tab 07/11/15 Levothyroxine Sodium [Synthroid] 88 mcg PO DAILY 30 Days #30 tab 09/01/18 Allergies Allergy/AdvReac Type Severity Reaction Status Date / Time warfarin sodium Allergy Unknown Verified 12/26/18 19:51 [From Coumadin] peas AdvReac Diarrhea Verified 12/26/18 19:51 Review of Systems ROS Statement: Those systems with pertinent positive or pertinent negative responses have been documented in the HPI. ROS Other: All systems not noted in ROS Statement are negative. 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7, Past Anesthesia/Blood Transfusion Reactions: No Reported Reaction Past Psychological History: No Psychological Hx Reported Smoking Status: Never smoker Past Alcohol Use History: None Reported Past Drug Use History: None Reported - Past Family History Mother Family Medical History: Asthma, Cancer, Hyperlipidemia, Hypertension Additional Family Medical History / Comment(s): Mother had breast CA at age 52 Brother(s) Family Medical History: Asthma Father Family Medical History: Asthma General Exam Limitations: no limitations General appearance: alert, in no apparent distress, other (Physical well- developed, well-nourished adult female patient in no acute distress. Vital signs upon presentation are temperature 97.9F, pulse 101, respirations 18, blood pressure 123/84, pulse ox 98% on room air.) Eye exam: Present: normal appearance, PERRL, EOMI. Absent: scleral icterus, conjunctival injection, periorbital swelling ENT exam: Present: normal exam, normal oropharynx, mucous membranes moist Respiratory exam: Present: normal lung sounds bilaterally. Absent: respiratory distress, wheezes, rales, rhonchi, stridor Cardiovascular Exam: Present: normal rhythm, tachycardia, normal heart sounds. Absent: systolic murmur, diastolic murmur, rubs, gallop, clicks GI/Abdominal exam: Present: soft, normal bowel sounds. Absent: distended, tenderness, guarding, rebound, rigid Neurological exam: Present: alert, oriented X3, CN II-XII intact Psychiatric exam: Present: normal affect, normal mood Skin exam: Present: warm, dry, intact, normal color. Absent: rash Course Vital Signs 01/12/19 01/12/19 01/12/19 19:54 20:35 21:00 Temperature 97.9 F Pulse Rate 101 H 83 76 Respiratory 18 18 15 Rate Blood Pressure 123/84 108/79 106/72 O2 Sat by Pulse 98 96 97 Oximetry 01/12/19 22:55 Temperature Pulse Rate 72 Respiratory 18 Rate Blood Pressure 110/73 O2 Sat by Pulse 98 Oximetry Medical Decision Making - Medical Decision Making 38-year-old female patient presents to the emergency department today for evaluation of lower abdominal pain. While waiting for evaluation by the physician she did have sudden onset of chest pain and shortness of breath. During physical examination heart rate was found to be elevated. EKG was obtained and showed supraventricular tachycardia with a ventricular rate of 196. Abdomen was soft and nontender. Remainder physical exam is unremarkable. Labs reviewed and were unremarkable other than a TSH level of 17. Free T4 was 0.99. Drug screen was negative. Urinalysis showed no evidence for infection, patient is not . Patient did admit that she had stopped taking all her medications which included Betapace due to wanting to become . States she did not discuss this with her physician. Patient did have episode of SVT in August of this year. Patient did convert spontaneously to normal sinus rhythm. She remained in normal sinus rhythm throughout her visit here. She will be discharged at this time with instructions to continue her medications as directed. She is urged to discuss discontinuation or changing medications to those states in should she wish to become . She is instructed to follow-up with tube roller for further evaluation as well. Return parameters were discussed in detail. She verbalizes understanding and agrees with this plan. - Lab Data Result diagrams: 01/12/19 20:33 01/12/19 20:33 Lab Results 01/12/19 01/12/19 01/12/19 Range/Units 20:00 20:00 20:00 WBC (3.8-10.6) k/uL RBC (3.80-5.40) m/uL Hgb (11.4-16.0) gm/dL Hct (34.0-46.0) % MCV (80.0-100.0) fL MCH (25.0-35.0) pg MCHC (31.0-37.0) g/dL RDW (11.5-15.5) % Plt Count (150-450) k/uL Neutrophils % % Lymphocytes % % Monocytes % % Eosinophils % % Basophils % % Neutrophils # (1.3-7.7) k/uL Lymphocytes # (1.0-4.8) k/uL Monocytes # (0-1.0) k/uL Eosinophils # (0-0.7) k/uL Basophils # (0-0.2) k/uL PT (9.0-12.0) sec INR (<1.2) APTT (22.0-30.0) sec Sodium (137-145) mmol/L Potassium (3.5-5.1) mmol/L Chloride (98-107) mmol/L Carbon Dioxide (22-30) mmol/L Anion Gap mmol/L BUN (7-17) mg/dL Creatinine (0.52-1.04) mg/dL Est GFR (CKD-EPI)AfAm (>60 ml/min/1.73 sqM) Est GFR (CKD-EPI)NonAf (>60 ml/min/1.73 sqM) Glucose (74-99) mg/dL Calcium (8.4-10.2) mg/dL Magnesium (1.6-2.3) mg/dL Total Bilirubin (0.2-1.3) mg/dL AST (14-36) U/L ALT (9-52) U/L Alkaline Phosphatase (38-126) U/L Troponin I (0.000-0.034) ng/mL Total Protein (6.3-8.2) g/dL Albumin (3.5-5.0) g/dL Amylase (30-110) U/L Lipase (23-300) U/L TSH (0.465-4.680) mIU/L Free T4 (0.78-2.19) ng/dL Urine Color Yellow Urine Appearance Cloudy H (Clear) Urine pH 7.0 (5.0-8.0) Ur Specific [place] 1.018 (1.001-1.035) Urine Protein Trace H (Negative) Urine Glucose (UA) Negative (Negative) Urine Ketones Negative (Negative) Urine Blood Negative (Negative) Urine Nitrite Negative (Negative) Urine Bilirubin Negative (Negative) Urine Urobilinogen 2.0 (<2.0) mg/dL Ur Leukocyte Esterase Trace H (Negative) Urine RBC 4 (0-5) /hpf Urine WBC 7 H (0-5) /hpf Ur Squamous Epith Cells 36 H (0-4) /hpf Amorphous Sediment Occasional H (None) /hpf Urine Mucus Rare H (None) /hpf Urine HCG, Qual Not Detected (Not Detectd) Urine Opiates Screen Not Detected (NotDetected) Ur Oxycodone Screen Not Detected (NotDetected) Urine Methadone Screen Not Detected (NotDetected) Ur Propoxyphene Screen Not Detected (NotDetected) Ur Barbiturates Screen Not Detected (NotDetected) U Tricyclic Antidepress Not Detected (NotDetected) Ur Phencyclidine Scrn Not Detected (NotDetected) Ur Amphetamines Screen Not Detected (NotDetected) U Methamphetamines Scrn Not Detected (NotDetected) U Benzodiazepines Scrn Not Detected (NotDetected) Urine Cocaine Screen Not Detected (NotDetected) U Marijuana (THC) Screen Not Detected (NotDetected) 01/12/19 01/12/19 01/12/19 Range/Units 20:33 20:33 20:33 WBC 4.7 (3.8-10.6) k/uL RBC 5.69 H (3.80-5.40) m/uL Hgb 15.8 (11.4-16.0) gm/dL Hct 48.5 H (34.0-46.0) % MCV 85.2 (80.0-100.0) fL MCH 27.9 (25.0-35.0) pg MCHC 32.7 (31.0-37.0) g/dL RDW 14.9 (11.5-15.5) % Plt Count 138 L (150-450) k/uL Neutrophils % 75 % Lymphocytes % 14 % Monocytes % 6 % Eosinophils % 3 % Basophils % 1 % Neutrophils # 3.6 (1.3-7.7) k/uL Lymphocytes # 0.7 L (1.0-4.8) k/uL Monocytes # 0.3 (0-1.0) k/uL Eosinophils # 0.2 (0-0.7) k/uL Basophils # 0.0 (0-0.2) k/uL PT 11.7 (9.0-12.0) sec INR 1.1 (<1.2) APTT 26.3 (22.0-30.0) sec Sodium 138 (137-145) mmol/L Potassium 4.4 (3.5-5.1) mmol/L Chloride 105 (98-107) mmol/L Carbon Dioxide 22 (22-30) mmol/L Anion Gap 11 mmol/L BUN 10 (7-17) mg/dL Creatinine 0.73 (0.52-1.04) mg/dL Est GFR (CKD-EPI)AfAm >90 (>60 ml/min/1.73 sqM) Est GFR (CKD-EPI)NonAf >90 (>60 ml/min/1.73 sqM) Glucose 85 (74-99) mg/dL Calcium 9.3 (8.4-10.2) mg/dL Magnesium 2.1 (1.6-2.3) mg/dL Total Bilirubin 1.3 (0.2-1.3) mg/dL AST 33 (14-36) U/L ALT 14 (9-52) U/L Alkaline Phosphatase 54 (38-126) U/L Troponin I (0.000-0.034) ng/mL Total Protein 7.8 (6.3-8.2) g/dL Albumin 4.5 (3.5-5.0) g/dL Amylase 55 (30-110) U/L Lipase 46 (23-300) U/L TSH 17.000 H (0.465-4.680) mIU/L Free T4 0.99 (0.78-2.19) ng/dL Urine Color Urine Appearance (Clear) Urine pH (5.0-8.0) Ur Specific [place] (1.001-1.035) Urine Protein (Negative) Urine Glucose (UA) (Negative) Urine Ketones (Negative) Urine Blood (Negative) Urine Nitrite (Negative) Urine Bilirubin (Negative) Urine Urobilinogen (<2.0) mg/dL Ur Leukocyte Esterase (Negative) Urine RBC (0-5) /hpf Urine WBC (0-5) /hpf Ur Squamous Epith Cells (0-4) /hpf Amorphous Sediment (None) /hpf Urine Mucus (None) /hpf Urine HCG, Qual (Not Detectd) Urine Opiates Screen (NotDetected) Ur Oxycodone Screen (NotDetected) Urine Methadone Screen (NotDetected) Ur Propoxyphene Screen (NotDetected) Ur Barbiturates Screen (NotDetected) U Tricyclic Antidepress (NotDetected) Ur Phencyclidine Scrn (NotDetected) Ur Amphetamines Screen (NotDetected) U Methamphetamines Scrn (NotDetected) U Benzodiazepines Scrn (NotDetected) Urine Cocaine Screen (NotDetected) U Marijuana (THC) Screen (NotDetected) 01/12/19 Range/Units 20:33 WBC (3.8-10.6) k/uL RBC (3.80-5.40) m/uL Hgb (11.4-16.0) gm/dL Hct (34.0-46.0) % MCV (80.0-100.0) fL MCH (25.0-35.0) pg MCHC (31.0-37.0) g/dL RDW (11.5-15.5) % Plt Count (150-450) k/uL Neutrophils % % Lymphocytes % % Monocytes % % Eosinophils % % Basophils % % Neutrophils # (1.3-7.7) k/uL Lymphocytes # (1.0-4.8) k/uL Monocytes # (0-1.0) k/uL Eosinophils # (0-0.7) k/uL Basophils # (0-0.2) k/uL PT (9.0-12.0) sec INR (<1.2) APTT (22.0-30.0) sec Sodium (137-145) mmol/L Potassium (3.5-5.1) mmol/L Chloride (98-107) mmol/L Carbon Dioxide (22-30) mmol/L Anion Gap mmol/L BUN (7-17) mg/dL Creatinine (0.52-1.04) mg/dL Est GFR (CKD-EPI)AfAm (>60 ml/min/1.73 sqM) Est GFR (CKD-EPI)NonAf (>60 ml/min/1.73 sqM) Glucose (74-99) mg/dL Calcium (8.4-10.2) mg/dL Magnesium (1.6-2.3) mg/dL Total Bilirubin (0.2-1.3) mg/dL AST (14-36) U/L ALT (9-52) U/L Alkaline Phosphatase (38-126) U/L Troponin I <0.012 (0.000-0.034) ng/mL Total Protein (6.3-8.2) g/dL Albumin (3.5-5.0) g/dL Amylase (30-110) U/L Lipase (23-300) U/L TSH (0.465-4.680) mIU/L Free T4 (0.78-2.19) ng/dL Urine Color Urine Appearance (Clear) Urine pH (5.0-8.0) Ur Specific [place] (1.001-1.035) Urine Protein (Negative) Urine Glucose (UA) (Negative) Urine Ketones (Negative) Urine Blood (Negative) Urine Nitrite (Negative) Urine Bilirubin (Negative) Urine Urobilinogen (<2.0) mg/dL Ur Leukocyte Esterase (Negative) Urine RBC (0-5) /hpf Urine WBC (0-5) /hpf Ur Squamous Epith Cells (0-4) /hpf Amorphous Sediment (None) /hpf Urine Mucus (None) /hpf Urine HCG, Qual (Not Detectd) Urine Opiates Screen (NotDetected) Ur Oxycodone Screen (NotDetected) Urine Methadone Screen (NotDetected) Ur Propoxyphene Screen (NotDetected) Ur Barbiturates Screen (NotDetected) U Tricyclic Antidepress (NotDetected) Ur Phencyclidine Scrn (NotDetected) Ur Amphetamines Screen (NotDetected) U Methamphetamines Scrn (NotDetected) U Benzodiazepines Scrn (NotDetected) Urine Cocaine Screen (NotDetected) U Marijuana (THC) Screen (NotDetected) - EKG Data -: EKG Interpreted by [facility] EKG Comments: EKG obtained at 2026 shows supraventricular tachycardia with a ventricular rate of 196, QRS duration 106, QT to 36, QTC 426. EKG obtained at 2027 shows sinus rhythm with marked sinus arrhythmia with a first-degree AV block. Ventricular rate is 86, MN interval 218, QRS duration 86, QT 312, QTC 373. No evidence of ST elevation or depression. - Radiology Data Radiology results: report reviewed, image reviewed Two-view x-ray of the chest is obtained. Report was reviewed in its entirety. Impression by Dr. Blackwood shows no active cardiopulmonary disease. No change. Disposition Clinical Impression: SVT (supraventricular tachycardia), Abdominal pain Disposition: HOME SELF-CARE Condition: Good Instructions (If sedation given, give patient instructions): Supraventricular Tachycardia (ED), Abdominal Pain (ED) Additional Instructions: Follow up with her primary care physician for recheck in 1-2 days. Restart your medications and discuss their discontinuation with your primary doctor. Return to the emergency department immediately for any new, worsening, or concerning symptoms. Is patient prescribed a controlled substance at d/c from ED?: No Referrals: Devaughn Marino MD [Primary Care Provider] - 1-2 days Time of Disposition: 22:53
[2019-01-12 22:56] VITALS: BP 110/73; PULSE 72; RESP 18
== END 2019-01-12 23:09 | disposition home or self-care (01) ==
LOC: EC 19:27
DX: I47.1 Supraventricular tachycardia (principal); R10.9 Unspecified abdominal pain; I48.92 Unspecified atrial flutter; Z79.01 Long term (current) use of anticoagulants; Z79.899 Other long term (current) drug therapy; Z91.018 Allergy to other foods; Z88.8 Allergy status to other drugs, medicaments and biological substances; Z95.1 Presence of aortocoronary bypass graft
CPT/HCPCS: 36415; 71046; 80053; 80306; 81001; 81025; 82150; 83690; 83735; 84439; 84443; 84484; 85025; 85610; 85730; 96360; 99284

== ENCOUNTER 2019-02-10 18:07 | Emergency (ER) | payer OTHER ==
[2019-02-10] MEDS ORDERED: IPRATROPIUM-ALBUTEROL 3 ML NEB INHALATION STA (18:18)
--- NOTE | 2019-02-10 18:23 | ED ---
General Adult HPI - General Stated complaint: CHEST PAIN Time Seen by Provider: 02/10/19 18:10 Source: RN notes reviewed, old records reviewed - History of Present Illness Initial comments: 38-year-old female patient past medical history of SVT, liver disease, asthma presents to ED with chief complaint of substernal chest pain which radiates to her back. Describes it as a sharp pain. Patient states this began today approximately 1 PM. Patient denies any associated shortness of breath or diaphoresis. Patient says her symptoms have since improved. Denies any other complaints at this time. Systemic: Pt denies fatigue, fever/chills, rash. Pt denies weakness, night sweats, weight loss. Neuro: Pt denies headache, visual disturbances, syncope or pre-syncope. HEENT: Pt denies ocular discharge or irritation, otalgia, rhinorrhea, pharyngitis or notable lymphadenopathy. Cardiopulmonary: Pt denies SOB, heart palpitations, dyspnea on exertion. Abdominal/GI: Pt denies abdominal pain, n/v/d. : Pt denies dysuria, burning w/ urination, frequency/urgency. Denies new onset urinary or bowel incontinence. MSK: Pt denies myalgia, loss of strength or function in extremities. Neuro: Pt denies new onset weakness, paresthesias. - Related Data Home Medications Medication Instructions Recorded Confirmed Spironolactone 50 mg PO BID 08/21/16 08/30/18 Sotalol [Betapace] 120 mg PO BID 09/12/17 08/30/18 Enoxaparin [Lovenox] 120 mg SQ HS 08/30/18 08/30/18 Previous Rx's Medication Instructions Recorded Furosemide [Lasix] 40 mg PO BID@0900,1600 #60 tab 07/11/15 Levothyroxine Sodium [Synthroid] 88 mcg PO DAILY 30 Days #30 tab 09/01/18 Allergies Allergy/AdvReac Type Severity Reaction Status Date / Time warfarin sodium Allergy Unknown Verified 12/26/18 19:51 [From Coumadin] peas AdvReac Diarrhea Verified 12/26/18 19:51 Review of Systems ROS Statement: Those systems with pertinent positive or pertinent negative responses have been documented in the HPI. ROS Other: All systems not noted in ROS Statement are negative. 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 7, Past Anesthesia/Blood Transfusion Reactions: No Reported Reaction Past Psychological History: No Psychological Hx Reported Smoking Status: Never smoker Past Alcohol Use History: None Reported Past Drug Use History: None Reported - Past Family History Mother Family Medical History: Asthma, Cancer, Hyperlipidemia, Hypertension Additional Family Medical History / Comment(s): Mother had breast CA at age 52 Brother(s) Family Medical History: Asthma Father Family Medical History: Asthma General Exam - General Exam Comments Initial Comments: Constitutional: NAD, AOX3, Pt has pleasant affect. HEENT: NC/AT, trachea midline, neck supple, no lymphadenopathy. Posterior pharynx non erythematous, without exudates. External ears appear normal, without discharge. Mucous membranes moist. Eyes PERRLA, EOM intact. There is no scleral icterus. No pallor noted. Cardiopulmonary: RRR, no murmurs, rubs or gallops, no JVD noted. Wheezing noted in anterior left lung field. No peripheral edema. Abdominal exam: Abdomen soft and non-distended. Abdomen non-tender to palpation in all 4 quadrants. Bowel sounds active in LLQ. No hepatosplenomegaly. No ecchymosis Neuro: CN II-XII grossly intact. No nuchal rigidity. No raccon eyes, no mckeon sign, no hemotympanum. No cervical spinal tenderness. MSK: No posterior calf tenderness bilaterally, homans sign negative bilaterally. Posterior tibialis and radial pulse +2 bilaterally. Sensation intact in upper and lower extremities. Full active ROM in upper and lower extremities, 5/5 stregnth. Course Vital Signs 02/10/19 02/10/19 02/10/19 18:20 18:46 18:51 Temperature 97.0 F L Pulse Rate 56 L 57 L 61 Respiratory 18 Rate Blood Pressure 74/49 O2 Sat by Pulse 95 Oximetry 02/10/19 02/10/19 02/10/19 18:56 20:29 22:54 Temperature 98.0 F Pulse Rate 57 L 54 L 57 L Respiratory 18 18 Rate Blood Pressure 87/69 103/50 112/65 O2 Sat by Pulse 94 L 93 L Oximetry Medical Decision Making - Medical Decision Making 38-year-old female patient past medical history of SVT, liver disease, asthma presents to ED with chief complaint of substernal chest pain which radiates to her back. Describes it as a sharp pain. Patient states this began today approximately 1 PM. Patient denies any associated shortness of breath or diaphoresis. Patient says her symptoms have since improved. Denies any other complaints at this time. Patient vital signs initially displayed mild hypotension which is baseline for patient for her and per chart review. Patient was bolused 1 L, blood pressure with a couple limits. Vital signs otherwise stable. Physical exam didn't display acute pathology. EKG nonischemic. Laboratory investigations were not impressive. Troponin negative 2. BNP lower than baseline. UA negative. CT angios displayed aneurysm of ascending aorta not significant change from prior computed tomography scan. No evidence of PE abdominal ascites, cardiomegaly. Patient will be discharged, will follow up with primary care provider and credit controller for continued evaluation. Case discussed with Dr. Johnson - Lab Data Result diagrams: 02/10/19 18:51 02/10/19 18:51 Lab Results 02/10/19 02/10/19 02/10/19 Range/Units 18:51 18:51 18:51 WBC 5.6 (3.8-10.6) k/uL RBC 5.03 (3.80-5.40) m/uL Hgb 14.3 (11.4-16.0) gm/dL Hct 43.6 (34.0-46.0) % MCV 86.7 (80.0-100.0) fL MCH 28.5 (25.0-35.0) pg MCHC 32.9 (31.0-37.0) g/dL RDW 16.0 H (11.5-15.5) % Plt Count 143 L (150-450) k/uL Neutrophils % 76 % Lymphocytes % 11 % Monocytes % 6 % Eosinophils % 5 % Basophils % 1 % Neutrophils # 4.2 (1.3-7.7) k/uL Lymphocytes # 0.6 L (1.0-4.8) k/uL Monocytes # 0.3 (0-1.0) k/uL Eosinophils # 0.3 (0-0.7) k/uL Basophils # 0.1 (0-0.2) k/uL Anisocytosis Slight PT (9.0-12.0) sec INR (<1.2) APTT (22.0-30.0) sec Sodium 137 (137-145) mmol/L Potassium 4.4 (3.5-5.1) mmol/L Chloride 105 (98-107) mmol/L Carbon Dioxide 22 (22-30) mmol/L Anion Gap 10 mmol/L BUN 14 (7-17) mg/dL Creatinine 0.70 (0.52-1.04) mg/dL Est GFR (CKD-EPI)AfAm >90 (>60 ml/min/1.73 sqM) Est GFR (CKD-EPI)NonAf >90 (>60 ml/min/1.73 sqM) Glucose 84 (74-99) mg/dL Calcium 9.3 (8.4-10.2) mg/dL Magnesium 2.1 (1.6-2.3) mg/dL Total Bilirubin 1.1 (0.2-1.3) mg/dL AST 34 (14-36) U/L ALT 9 (9-52) U/L Alkaline Phosphatase 64 (38-126) U/L Troponin I (0.000-0.034) ng/mL NT-Pro-B Natriuret Pep pg/mL Total Protein 8.0 (6.3-8.2) g/dL Albumin 4.4 (3.5-5.0) g/dL Lipase 68 (23-300) U/L Urine Color Urine Appearance (Clear) Urine pH (5.0-8.0) Ur Specific Reedy (1.001-1.035) Urine Protein (Negative) Urine Glucose (UA) (Negative) Urine Ketones (Negative) Urine Blood (Negative) Urine Nitrite (Negative) Urine Bilirubin (Negative) Urine Urobilinogen (<2.0) mg/dL Ur Leukocyte Esterase (Negative) Urine HCG, Qual Not Detected (Not Detectd) 02/10/19 02/10/19 02/10/19 Range/Units 18:51 18:51 18:51 WBC (3.8-10.6) k/uL RBC (3.80-5.40) m/uL Hgb (11.4-16.0) gm/dL Hct (34.0-46.0) % MCV (80.0-100.0) fL MCH (25.0-35.0) pg MCHC (31.0-37.0) g/dL RDW (11.5-15.5) % Plt Count (150-450) k/uL Neutrophils % % Lymphocytes % % Monocytes % % Eosinophils % % Basophils % % Neutrophils # (1.3-7.7) k/uL Lymphocytes # (1.0-4.8) k/uL Monocytes # (0-1.0) k/uL Eosinophils # (0-0.7) k/uL Basophils # (0-0.2) k/uL Anisocytosis PT 12.1 H (9.0-12.0) sec INR 1.2 H (<1.2) APTT 26.3 (22.0-30.0) sec Sodium (137-145) mmol/L Potassium (3.5-5.1) mmol/L Chloride (98-107) mmol/L Carbon Dioxide (22-30) mmol/L Anion Gap mmol/L BUN (7-17) mg/dL Creatinine (0.52-1.04) mg/dL Est GFR (CKD-EPI)AfAm (>60 ml/min/1.73 sqM) Est GFR (CKD-EPI)NonAf (>60 ml/min/1.73 sqM) Glucose (74-99) mg/dL Calcium (8.4-10.2) mg/dL Magnesium (1.6-2.3) mg/dL Total Bilirubin (0.2-1.3) mg/dL AST (14-36) U/L ALT (9-52) U/L Alkaline Phosphatase (38-126) U/L Troponin I <0.012 (0.000-0.034) ng/mL NT-Pro-B Natriuret Pep 1290 pg/mL Total Protein (6.3-8.2) g/dL Albumin (3.5-5.0) g/dL Lipase (23-300) U/L Urine Color Urine Appearance (Clear) Urine pH (5.0-8.0) Ur Specific Reedy (1.001-1.035) Urine Protein (Negative) Urine Glucose (UA) (Negative) Urine Ketones (Negative) Urine Blood (Negative) Urine Nitrite (Negative) Urine Bilirubin (Negative) Urine Urobilinogen (<2.0) mg/dL Ur Leukocyte Esterase (Negative) Urine HCG, Qual (Not Detectd) 02/10/19 02/10/19 Range/Units 18:51 22:00 WBC (3.8-10.6) k/uL RBC (3.80-5.40) m/uL Hgb (11.4-16.0) gm/dL Hct (34.0-46.0) % MCV (80.0-100.0) fL MCH (25.0-35.0) pg MCHC (31.0-37.0) g/dL RDW (11.5-15.5) % Plt Count (150-450) k/uL Neutrophils % % Lymphocytes % % Monocytes % % Eosinophils % % Basophils % % Neutrophils # (1.3-7.7) k/uL Lymphocytes # (1.0-4.8) k/uL Monocytes # (0-1.0) k/uL Eosinophils # (0-0.7) k/uL Basophils # (0-0.2) k/uL Anisocytosis PT (9.0-12.0) sec INR (<1.2) APTT (22.0-30.0) sec Sodium (137-145) mmol/L Potassium (3.5-5.1) mmol/L Chloride (98-107) mmol/L Carbon Dioxide (22-30) mmol/L Anion Gap mmol/L BUN (7-17) mg/dL Creatinine (0.52-1.04) mg/dL Est GFR (CKD-EPI)AfAm (>60 ml/min/1.73 sqM) Est GFR (CKD-EPI)NonAf (>60 ml/min/1.73 sqM) Glucose (74-99) mg/dL Calcium (8.4-10.2) mg/dL Magnesium (1.6-2.3) mg/dL Total Bilirubin (0.2-1.3) mg/dL AST (14-36) U/L ALT (9-52) U/L Alkaline Phosphatase (38-126) U/L Troponin I <0.012 (0.000-0.034) ng/mL NT-Pro-B Natriuret Pep pg/mL Total Protein (6.3-8.2) g/dL Albumin (3.5-5.0) g/dL Lipase (23-300) U/L Urine Color Colorless Urine Appearance Clear (Clear) Urine pH 6.5 (5.0-8.0) Ur Specific Reedy 1.005 (1.001-1.035) Urine Protein Negative (Negative) Urine Glucose (UA) Negative (Negative) Urine Ketones Negative (Negative) Urine Blood Negative (Negative) Urine Nitrite Negative (Negative) Urine Bilirubin Negative (Negative) Urine Urobilinogen <2.0 (<2.0) mg/dL Ur Leukocyte Esterase Negative (Negative) Urine HCG, Qual (Not Detectd) - EKG Data -: EKG Interpreted by Me (and dr. Johnson) EKG Comments: Ventricular rate 59, painful to 44, QRS 92, QT/QTc 478/473. Sinus bradycardia first-degree AV block, possible left atrial enlargement, left ventricular hypertrophy, ST and T wave abnormality, consider lateral ischemia. QT not significant change from prior. No concern for acute ischemia. Disposition Clinical Impression: Chest pain, Ascending aortic aneurysm Disposition: HOME SELF-CARE Condition: Stable Instructions (If sedation given, give patient instructions): Chest Pain (ED) Additional Instructions: Patient to adhere to previously discussed treatment plan and will take medication(s) as directed. Patient to follow up with PCP in 1-2 days. Patient to return to ED if symptoms do not improve. Follow-up with primary care provider and credit controller for continued evaluation. Is patient prescribed a controlled substance at d/c from ED?: No Referrals: Devaughn Marino MD [Primary Care Provider] - 1-2 days Christopher Cortez MD [STAFF PHYSICIAN] - 1-2 days
[2019-02-10 18:31] VITALS: RESP 18
[2019-02-10] MEDS ORDERED: SODIUM CHLORIDE 0.9% 1,000 ML IV STA (18:32)
[2019-02-10 19:01] LABS: Anisocytosis Slight; Basophils # (A) 0.1 k/uL (0-0.2); Basophils % (A) 1 %; Eosinophils # (A) 0.3 k/uL (0-0.7); Eosinophils % (A) 5 %; HCT 43.6 % (34.0-46.0); HGB 14.3 gm/dL (11.4-16.0); Lymphocytes # (A) 0.6 k/uL (1.0-4.8); Lymphocytes % (A) 11 %; MCH 28.5 pg (25.0-35.0); MCHC 32.9 g/dL (31.0-37.0); MCV 86.7 fL (80.0-100.0); Mean Platelet Volume 9.4; Monocytes # (A) 0.3 k/uL (0-1.0); Monocytes % (A) 6 %; Neutrophils # (A) 4.2 k/uL (1.3-7.7); Neutrophils % (A) 76 %; Platelet Count 143 k/uL (150-450); RBC 5.03 m/uL (3.80-5.40); WBC 5.6 k/uL (3.8-10.6)
[2019-02-10 19:02] LABS: Appearance,Urine Clear (Clear); Bilirubin,Urine Negative (Negative); Blood,Urine Negative (Negative); Color,Urine Colorless; Glucose,Urine (UA) Negative (Negative); Ketones,Urine Negative (Negative); Leukocyte Esterase,Urine Negative (Negative); Nitrite,Urine Negative (Negative); PH, Urine 6.5 (5.0-8.0); Protein,Urine Negative (Negative); Specific Gravity,Urine 1.005 (1.001-1.035); Urobilinogen,Urine <2.0 mg/dL (<2.0)
[2019-02-10 19:13] LABS: ALT 9 U/L (9-52); AST 34 U/L (14-36); African American GFR (CKD) >90 (>60 ml/min/1.73 sqM); Albumin 4.4 g/dL (3.5-5.0); Alkaline Phosphatase 64 U/L (38-126); Anion Gap 10 mmol/L; Blood Urea Nitrogen 14 mg/dL (7-17); Calcium 9.3 mg/dL (8.4-10.2); Carbon Dioxide 22 mmol/L (22-30); Chloride 105 mmol/L (98-107); Glucose 84 mg/dL (74-99); Magnesium 2.1 mg/dL (1.6-2.3); Non-African American GFR(CKD) >90 (>60 ml/min/1.73 sqM); Potassium 4.4 mmol/L (3.5-5.1); Sodium 137 mmol/L (137-145); Total Bilirubin 1.1 mg/dL (0.2-1.3)
[2019-02-10] MEDS ORDERED: ACETAMINOPHEN TAB 325 MG TAB PO STA (19:15)
--- NOTE | 2019-02-10 19:17 | XR ---
EXAMINATION TYPE: XR chest 2V DATE OF EXAM: 02/10/2019 COMPARISON: 01/12/2019 HISTORY: Chest pain TECHNIQUE: Frontal and lateral views of the chest are obtained. FINDINGS: There is no heart failure nor confluent pneumonic infiltrate. There is some coarsening of interstitial pulmonary markings. There are sternal wires. Bony thorax is intact. There is minimal ple ural thickening on the right lateral chest wall. There is no pleural effusion. IMPRESSION: Mild pulmonary interstitial density unchanged compared to last exam. No gross heart fail ure.
[2019-02-10 19:26] LABS: INR 1.2 (<1.2); Partial Thromboplastin Time 26.3 sec (22.0-30.0); Prothrombin Time 12.1 sec (9.0-12.0)
--- NOTE | 2019-02-10 22:01 | CT ---
EXAMINATION TYPE: CT angio thor/abd pel aorta DATE OF EXAM: 02/10/2019 COMPARISON: 08/30/2018 HISTORY: chest pain CT DLP: 1012.2 mGycm. Automated Exposure Control for Dose Reduction was Utilized. CONTRAST: CT scan of the thorax, abdomen and pelvis is performed with IV Contrast, patient injected with 100 mL of Isovue 370. FINDINGS: There are 3-D post processed images. There is 4.3 cm aneurysm of the ascending aorta. There is no dissection. There is no filling defects seen in the pulmonary arteries. There are no hilar masses. There is some air in the right atrium prob ably from the contrast injection. There is pulmonary interstitial edema. Descending thoracic aorta is intact. There is patency of the celiac artery and superior mesenteric ar yessenia. There is bilateral arterial flow in the renal arteries. There is patency of the iliac and femor al arteries. There is no evidence of hemodynamic stenosis. There is no evidence of aortic aneurysm or dissection. There is massive abdominal ascites. Liver is somewhat irregular consistent with cirrhosis. Kidneys sh ow no hydronephrosis. There is no retroperitoneal adenopathy. Uterus is anteverted. Thoracic and lumb ar spine are intact. IMPRESSION: Aneurysm of the ascending aorta. No evidence of hemodynamic stenosis. No evidence of pulmonary emboli sm. Interstitial pulmonary infiltrates of uncertain etiology. This could be related to heart failure. Abdominal ascites. Changes in the liver consistent with cirrhosis. Cardiomegaly. Reflux of contrast i nto the inferior vena cava that could relate to congestive heart failure.
[2019-02-10 22:56] VITALS: BP 112/65; TEMP 98
[2019-02-10 23:45] VITALS: PULSE 59
== END 2019-02-10 23:46 | disposition home or self-care (01) ==
LOC: EC 18:07
DX: I71.2 Thoracic aortic aneurysm, without rupture (principal); Z88.8 Allergy status to other drugs, medicaments and biological substances; Z91.018 Allergy to other foods; Z79.01 Long term (current) use of anticoagulants; Z79.899 Other long term (current) drug therapy; Z86.79 Personal history of other diseases of the circulatory system; Z87.74 Personal history of (corrected) congenital malformations of heart and circulatory system; Z95.1 Presence of aortocoronary bypass graft; Z82.49 Family history of ischemic heart disease and other diseases of the circulatory system
CPT/HCPCS: 36415; 94640; 93005; 83880; 80053; 83690; 83735; 84484; 85025; 85610; 85730; 81003; 81025; 71046; 71275; 74174; 99285; 96360; 96361 ×2; Q9967

== ENCOUNTER → 2019-03-27 | Outpatient (CLI) | payer OTHER ==
--- NOTE | 2019-03-27 14:44 | MM ---
Reason for exam: screening (asymptomatic). Baseline mammogram. History: Patient is nulliparous. Family history of breast cancer in mother at age 58. Physical Findings: Nurse did not find any significant physical abnormalities on exam. MG Screening Mammo w CAD Bilateral CC and MLO view(s) were taken. XCCL view(s) were taken of the right breast. The breast tissue is heterogeneously dense. This may lower the sensitivity of mammography. There is no discrete abnormality. These results were verbally communicated with the patient and result sheet given to the patient on 03/27/19. ASSESSMENT: Negative, BI-RAD 1 RECOMMENDATION: Routine screening mammogram of both breasts at age 40.
== END ==
LOC: RADMAMWWP 13:41
PROVIDERS: ATTEND Internal Medicine
DX: Z12.31 Encounter for screening mammogram for malignant neoplasm of breast (principal)
CPT/HCPCS: 77067

== ENCOUNTER 2019-05-04 19:30 | Emergency (ER) | payer OTHER ==
[2019-05-04] MEDS ORDERED: MORPHINE SULFATE 4 MG/ML SYRINGE IM STA (20:34)
--- NOTE | 2019-05-04 21:03 | XR ---
Right forearm 2 views. History pain. Comparison none. FINDINGS: There is evidence of a nondisplaced hairline transverse fracture distal radial metaphysis. The ulna a ppears intact. Elbow joint appears intact. IMPRESSION: Hairline fracture distal radius.
--- NOTE | 2019-05-04 21:04 | XR ---
EXAMINATION TYPE: XR wrist limited RT DATE OF EXAM: 05/04/2019 COMPARISON: NONE HISTORY: Pain TECHNIQUE: 2 views FINDINGS: There is hairline nondisplaced fracture distal radial metaphysis. There is no dislocation. Carpal bones appear intact. IMPRESSION: Hairline fracture of the distal radius.
--- NOTE | 2019-05-04 21:04 | XR ---
EXAMINATION TYPE: XR hand limited RT DATE OF EXAM: 05/04/2019 COMPARISON: NONE HISTORY: Pain TECHNIQUE: 2 views FINDINGS: Metacarpals are intact. Carpal bones are intact. Interphalangeal joint spaces are normal. I see no fracture of the hand. There is nondisplaced fracture distal radius. IMPRESSION: Distal radius fracture.
[2019-05-04] MEDS ORDERED: ACET/COD 300 MG/30 MG STARTER PACK 6 TAB BTL PO STA (21:37)
--- NOTE | 2019-05-04 21:37 | ED ---
General Adult HPI - General Chief complaint: Extremity Injury, Upper Stated complaint: fell hurt right wrist Time Seen by Provider: 05/04/19 19:53 Source: patient, RN notes reviewed, old records reviewed Mode of arrival: ambulatory Limitations: no limitations - History of Present Illness Initial comments: 38-year-old female patient in [place] chief complaint of fall wrist pain. Patient reports that she was out [id number] she reports that she had just told her nephew to be careful so he doesn't fall when she lost her balance and fell forward. Patient reports that she landed on her side, reports that she has pain in her distal right radius region. Denies any trauma to head or neck. Denies any some blood thinners. Denies any other complaints. Systemic: Pt denies fatigue, fever/chills, rash. Pt denies weakness, night sweats, weight loss. Neuro: Pt denies headache, visual disturbances, syncope or pre-syncope. HEENT: Pt denies ocular discharge or irritation, otalgia, rhinorrhea, pharyngitis or notable lymphadenopathy. Cardiopulmonary: Pt denies chest pain, SOB, heart palpitations, dyspnea on exertion. Abdominal/GI: Pt denies abdominal pain, n/v/d. : Pt denies dysuria, burning w/ urination, frequency/urgency. Denies new onset urinary or bowel incontinence. MSK: Pt denies loss of strength or function in extremities. Neuro: Pt denies new onset weakness, paresthesias. - Related Data Home Medications Medication Instructions Recorded Confirmed Spironolactone 50 mg PO BID 08/21/16 05/04/19 Sotalol [Betapace] 120 mg PO BID 09/12/17 05/04/19 Enoxaparin [Lovenox] 120 mg SQ HS 08/30/18 05/04/19 Ergocalciferol [Vitamin D2] 50,000 unit PO JEFFERS 05/04/19 05/04/19 Levothyroxine Sodium [Synthroid] 75 mcg PO DAILY 05/04/19 05/04/19 Previous Rx's Medication Instructions Recorded Furosemide [Lasix] 40 mg PO BID@0900,1600 #60 tab 07/11/15 Allergies Allergy/AdvReac Type Severity Reaction Status Date / Time warfarin sodium Allergy Anaphylaxis Verified 05/04/19 20:56 [From Coumadin] peas AdvReac Diarrhea Verified 05/04/19 20:56 Review of Systems ROS Statement: Those systems with pertinent positive or pertinent negative responses have been documented in the HPI. ROS Other: All systems not noted in ROS Statement are negative. 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 7, Past Anesthesia/Blood Transfusion Reactions: No Reported Reaction Past Psychological History: No Psychological Hx Reported Smoking Status: Never smoker Past Alcohol Use History: None Reported Past Drug Use History: None Reported - Past Family History Mother Family Medical History: Asthma, Cancer, Hyperlipidemia, Hypertension Additional Family Medical History / Comment(s): Mother had breast CA at age 52 Brother(s) Family Medical History: Asthma Father Family Medical History: Asthma General Exam - General Exam Comments Initial Comments: Constitutional: NAD, AOX3, Pt has pleasant affect. HEENT: NC/AT, trachea midline, neck supple, no lymphadenopathy. Posterior pharynx non erythematous, without exudates. External ears appear normal, without discharge. Mucous membranes moist. Eyes PERRLA, EOM intact. There is no scleral icterus. No pallor noted. Cardiopulmonary: RRR, no murmurs, rubs or gallops, no JVD noted. Lungs CTAB in anterior and posterior murillo. No peripheral edema. Abdominal exam: Abdomen soft and non-distended. Abdomen non-tender to palpation in all 4 quadrants. Bowel sounds active in LLQ. No hepatosplenomegaly. No ecchymosis Neuro: CN II-XII grossly intact. No nuchal rigidity. No raccon eyes, no mckeon sign, no hemotympanum. No cervical spinal tenderness. MSK: Distal right radius mildly tender to palpation. Neurovascularly intact. Nuerovascularly intact after splint placement. No posterior calf tenderness bilaterally, homans sign negative bilaterally. Posterior tibialis and radial pulse +2 bilaterally. Sensation intact in upper and lower extremities. Full active ROM in upper and lower extremities, 5/5 stregnth. Limitations: no limitations Course Vital Signs 05/04/19 19:47 Temperature 97.3 F L Pulse Rate 97 Respiratory 20 Rate Blood Pressure 114/80 O2 Sat by Pulse 95 Oximetry Medical Decision Making - Medical Decision Making 38-year-old female patient in [place] chief complaint of fall wrist pain. Patient reports that she was out [id number] she reports that she had just told her nephew to be careful so he doesn't fall when she lost her balance and fell forward. Patient reports that she landed on her side, reports that she has pain in her distal right radius region. Denies any trauma to head or neck. Denies any some blood thinners. Denies any other complaints. Patient vital signs stable, afebrile. Physical exam displayed: Distal right radius mildly tender to palpation. Neurovascularly intact. Nuerovascularly intact after splint placement. Plain film of wrist, hand and forearm displayed distal radius fracture. Pt will be DC with outpatient ortho follow up tommorow. Case discussed with Dr. Frey. Disposition Clinical Impression: Distal radius fracture Disposition: HOME SELF-CARE Condition: Stable Instructions (If sedation given, give patient instructions): Wrist Fracture in Adults (ED) Additional Instructions: Patient to adhere to previously discussed treatment plan and will take medication(s) as directed. Patient to follow up with PCP in 1-2 days. Patient to return to ED if symptoms do not improve. Follow up with orthopedic surgeon tomorrow. Return to ER if condition worsens. Is patient prescribed a controlled substance at d/c from ED?: No Referrals: Devaughn Marino MD [Primary Care Provider] - 1-2 days Teodoro Parikh DO [Medical Doctor] - 1-2 days
[2019-05-04 22:00] VITALS: BP 127/68; PULSE 74; RESP 18; TEMP 97.9
--- NOTE | 2019-05-05 07:28 | CDI ---
Dear Krish Ball, PAC: Please do addendum type of the splint applied. Thank you, Ely Greer, Picking Machine Operator. If you have any questions, please contact Freight And Passenger Agent at [phone]. [facility]
--- NOTE | 2019-05-18 16:07 | ED ---
Medical Decision Making - Medical Decision Making Physician clarification. Thumb spica splint on right arm placed. Neurovascularly intact after splint placement. Disposition Clinical Impression: Distal radius fracture Disposition: HOME SELF-CARE Condition: Stable Instructions (If sedation given, give patient instructions): Wrist Fracture in Adults (ED) Additional Instructions: Patient to adhere to previously discussed treatment plan and will take medication(s) as directed. Patient to follow up with PCP in 1-2 days. Patient to return to ED if symptoms do not improve. Follow up with orthopedic surgeon tomorrow. Return to ER if condition worsens. Is patient prescribed a controlled substance at d/c from ED?: No Referrals: Teodoro Parikh DO [Medical Doctor] - 1-2 days Devaughn Marino MD [Primary Care Provider] - 1-2 days
== END 2019-05-04 22:00 | disposition home or self-care (01) ==
LOC: EC 19:30
DX: S52.591A Other fractures of lower end of right radius, initial encounter for closed fracture (principal); E07.9 Disorder of thyroid, unspecified; Z88.8 Allergy status to other drugs, medicaments and biological substances; Z91.018 Allergy to other foods; Z79.01 Long term (current) use of anticoagulants; Z79.890 Hormone replacement therapy; Z79.899 Other long term (current) drug therapy; Z87.19 Personal history of other diseases of the digestive system; Z86.79 Personal history of other diseases of the circulatory system; Z87.74 Personal history of (corrected) congenital malformations of heart and circulatory system; Z95.1 Presence of aortocoronary bypass graft; W01.0XXA Fall on same level from slipping, tripping and stumbling without subsequent striking against object, initial encounter; Y93.89 Activity, other specified; Y92.009 Unspecified place in unspecified non-institutional (private) residence as the place of occurrence of the external cause
CPT/HCPCS: 99284; 29125; 96372; 73090; 73100; 73120; J2270

== ENCOUNTER → 2019-05-15 | Outpatient (CLI) | payer OTHER | END | disposition home or self-care (01) | LOC: LABWHC1 12:19 | PROVIDERS: ATTEND Orthopaedic Surgery | DX: M25.531 Pain in right wrist (principal); E55.9 Vitamin D deficiency, unspecified | CPT/HCPCS: 36415; 82306 ==

== ENCOUNTER 2019-10-24 14:35 | Emergency (ER) | payer OTHER ==
[2019-10-24 14:43] VITALS: BP 120/84; PULSE 80; RESP 20; TEMP 97.5
--- NOTE | 2019-10-24 15:50 | XR ---
EXAMINATION TYPE: XR lumbar spine 2 or 3V DATE OF EXAM: 10/24/2019 CLINICAL HISTORY: Low back pain TECHNIQUE: Frontal and lateral images of the lumbar spine are obtained. COMPARISON: None FINDINGS: Mild levoscoliosis of lumbar spine may be positional in nature. There are 5 lumbar type ve rtebral bodies identified. The lumbar spine shows satisfactory alignment without evidence of acute f racture or dislocation. Vertebral body heights and disk space heights are within normal limits. The o verlying soft tissue appears unremarkable. Mild facet arthropathy at L5-S1. IMPRESSION: No acute fracture or dislocation is seen in the lumbar spine. Mild facet arthropathy at L5-S1.
--- NOTE | 2019-10-24 15:54 | ED ---
Lower Extremity Injury HPI - General Chief Complaint: Extremity Injury, Lower Stated Complaint: right leg numbness Time Seen by Provider: 10/24/19 14:43 Source: patient Mode of arrival: ambulatory Limitations: no limitations - History of Present Illness Initial Comments: 38-year-old female presenting today for chief complaint of pain running down the center of her right buttock towards the posterior right knee. Patient sates this sharp in nature and comes and goes. She states at times it is positional. Patient denies any distinct low back pain. Patient denies a loss of bowel bladder control, urinary retention, she states she feels sleepy like feeling in that area of pain at times. Denies loss of sensation, she states she can feel it. Denies leg weakness. Denies inability to ambulate. Denies fevers, denies IVDU, denies leg swelling, coolness or pallor. Patient denies chronic steroid use. Patient denies trauma or injury to the back recently. She states she fell around [place] but nothing since. Patient appears wel on arrival ambulatory. Unsure if . - Related Data Home Medications Medication Instructions Recorded Confirmed Spironolactone 50 mg PO BID 08/21/16 05/04/19 Sotalol [Betapace] 120 mg PO BID 09/12/17 05/04/19 Enoxaparin [Lovenox] 120 mg SQ HS 08/30/18 05/04/19 Ergocalciferol [Vitamin D2] 50,000 unit PO JEFFERS 05/04/19 05/04/19 Levothyroxine Sodium [Synthroid] 75 mcg PO DAILY 05/04/19 05/04/19 Previous Rx's Medication Instructions Recorded Furosemide [Lasix] 40 mg PO BID@0900,1600 #60 tab 07/11/15 predniSONE 50 mg PO DAILY 4 Days #4 tab 10/24/19 Allergies Allergy/AdvReac Type Severity Reaction Status Date / Time warfarin sodium Allergy Anaphylaxis Verified 10/24/19 14:43 [From Coumadin] peas AdvReac Diarrhea Verified 10/24/19 14:43 Review of Systems ROS Statement: Those systems with pertinent positive or pertinent negative responses have been documented in the HPI. ROS Other: All systems not noted in ROS Statement are negative. 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, History of Any Multi-Drug Resistant Organisms: None Reported Past Surgical History: Coronary Bypass/CABG Additional Past Surgical History / Comment(s): D&C in November 2013, paracentesis, patient states her liver "went bad" after a miscarriage in 2013, Fontan Pr ocedure for congenital heart defect at age 1 and age 7, Past Anesthesia/Blood Transfusion Reactions: No Reported Reaction Past Psychological History: No Psychological Hx Reported Smoking Status: Never smoker Past Alcohol Use History: None Reported Past Drug Use History: None Reported - Past Family History Mother Family Medical History: Asthma, Cancer, Hyperlipidemia, Hypertension Additional Family Medical History / Comment(s): Mother had breast CA at age 52 Brother(s) Family Medical History: Asthma Father Family Medical History: Asthma General Exam - General Exam Comments Initial Comments: General: The patient is awake and alert, in no distress, and does not appear acutely ill. Eye: +3 mm pupils are equal, round and reactive to light, extra-ocular movements are intact. No nystagmus. There is normal conjunctiva bilaterally. No signs of icterus. Cardiovascular: There is a regular rate and rhythm. No murmur, rub or gallop is appreciated. Respiratory: Lungs are clear to auscultation, respirations are non-labored, breath sounds are equal. No wheezes, stridor, rales, or rhonchi. Gastrointestinal: Soft, non-distended, non-tender abdomen without masses or organomegaly noted. There is no rebound or guarding present. Normal rectal tone. Musculoskeletal: Normal inspection of thoracic/lumbar spine, buttock and thighs posteriorly. Normal ROM, no tenderness. Strength 5/5 of the LE b/l. . Sensation intact of the LE b/l including the saddle region.. DP pulses equal bilaterally 2+. Neurological: A&O x 3. CN II-XII intact, There are no obvious motor or sensory deficits. Coordination appears grossly intact. Speech is normal. Skin: Skin is warm and dry and no rashes or lesions are noted. No LE edema, no swellling. Psychiatric: Cooperative, appropriate mood & affect, normal judgment. Limitations: no limitations Course Vital Signs 10/24/19 14:40 Temperature 97.5 F L Pulse Rate 80 Respiratory 20 Rate Blood Pressure 120/84 O2 Sat by Pulse 97 Oximetry Medical Decision Making - Medical Decision Making 38yo female presenting for sharp pain posterior right leg. Described as sharp pain. Seems like nerve pain in nature. Patient has no neurological deficits. she denies no LOSS of sensation but at times what seems to be described as a parathesia. Patient ambulatory. No fevers. Normal rectal tone. No midline lumbar pain with normal inspection. Patient will be discharge with stretches,symptomatic treatment, PCP f/u and return parameters. She is agreeable to this care plan and discharge at this time. Case discussed with attending Dr. Sutherland - Lab Data Lab Results 10/24/19 Range/Units 15:15 Urine HCG, Qual Not Detected (Not Detectd) Disposition Clinical Impression: Radiculopathy, Right leg pain, Normal vascular exam Disposition: HOME SELF-CARE Condition: Good Instructions (If sedation given, give patient instructions): Sciatica (ED), Lumbar Radiculopathy (ED) Additional Instructions: Please use medication as discussed. Please follow-up with family doctor in the next 2 days. Perform stretches as discussed. Please return to emergency room if the symptoms increase or worsen or for any other concerns. Prescriptions: predniSONE 50 mg PO DAILY 4 Days #4 tab Is patient prescribed a controlled substance at d/c from ED?: No Referrals: Devaughn Marino MD [Primary Care Provider] - 1-2 days Time of Disposition: 15:54
[2019-10-24] MEDS ORDERED: ACET/COD 300 MG/30 MG STARTER PACK 6 TAB BTL PO STA (16:02)
[2019-10-24] MEDS ORDERED: CYCLOBENZAPRINE 10MG STARTER 3 TAB BTL PO STA (16:02)
== END 2019-10-24 16:15 | disposition home or self-care (01) ==
LOC: EC 14:35
DX: M54.10 Radiculopathy, site unspecified (principal); I48.92 Unspecified atrial flutter; E07.9 Disorder of thyroid, unspecified; Z79.01 Long term (current) use of anticoagulants; Z79.899 Other long term (current) drug therapy; Z88.8 Allergy status to other drugs, medicaments and biological substances; Z91.010 Allergy to peanuts; Z86.79 Personal history of other diseases of the circulatory system; Z95.1 Presence of aortocoronary bypass graft
CPT/HCPCS: 72100; 81025; 99284

== ENCOUNTER 2019-11-01 11:07 | Emergency (ER) | payer OTHER ==
[2019-11-01 11:15] VITALS: RESP 18
[2019-11-01 11:55] LABS: Appearance,Urine Turbid (Clear); Bacteria,Urine Occasional /hpf; Bilirubin,Urine Negative (Negative); Blood,Urine Trace (Negative); Color,Urine Yellow; Glucose,Urine (UA) Negative (Negative); Ketones,Urine Negative (Negative); Leukocyte Esterase,Urine Negative (Negative); Mucus,Urine Few /hpf; Nitrite,Urine Negative (Negative); Protein,Urine 1+ (Negative); RBC,Urine 3 /hpf (0-5); Specific Gravity,Urine 1.023 (1.001-1.035); Squamous Epithelial Cell,Urine 59 /hpf (0-4); Urobilinogen,Urine <2.0 mg/dL (<2.0); WBC,Urine 3 /hpf (0-5)
--- NOTE | 2019-11-01 12:23 | XR ---
EXAMINATION TYPE: PA chest and right rib series DATE OF EXAM: 11/01/2019 COMPARISON: 02/10/2019 HISTORY: 39-year-old female with fall and pain TECHNIQUE: 5 views FINDINGS: Median sternotomy wires. Multiple surgical clips along the right side and mid mediastinum. Heart uyen ins mildly enlarged. Old healed bilateral rib fracture deformities. Mild interstitial prominence is u nchanged. No jeff consolidation, pneumothorax, or pleural effusion seen. Old fractures of the right lateral fourth and fifth ribs. Additional thoracotomy change at the fifth rib level. Subtle cortical step-off involving the right lateral seventh rib on the oblique view. IMPRESSION: 1. Chronic changes with borderline to mild cardiomegaly. No acute cardiopulmonary process seen. 2. Some chronic right-sided rib deformities, suspect prior fifth rib thoracotomy. Clinically correlat e. 3. Suspect a subtle nondisplaced fracture of the right lateral seventh rib.
--- NOTE | 2019-11-01 12:30 | ED ---
Fall HPI - General Chief Complaint: Fall Stated Complaint: right side pain Source: patient, RN notes reviewed, old records reviewed Mode of arrival: ambulatory - History of Present Illness Initial Comments: Patient is a 39-year-old female presents emergency department today for evaluation with chief complaint of right-sided rib pain after she tripped and fell on Wednesday. She reports that she has multiple bruises of her forearm and an abrasion on R knee. Patient main complaint if right sided rib pain, and worse with taking a deep breath. She reports it is worse withmovement.She denies coughing, hemoptysis, or abdominal pain. - Related Data Home Medications Medication Instructions Recorded Confirmed Spironolactone 50 mg PO BID 08/21/16 05/04/19 Sotalol [Betapace] 120 mg PO BID 09/12/17 05/04/19 Enoxaparin [Lovenox] 120 mg SQ HS 08/30/18 05/04/19 Ergocalciferol [Vitamin D2] 50,000 unit PO JEFFERS 05/04/19 05/04/19 Levothyroxine Sodium [Synthroid] 75 mcg PO DAILY 05/04/19 05/04/19 Previous Rx's Medication Instructions Recorded Furosemide [Lasix] 40 mg PO BID@0900,1600 #60 tab 07/11/15 predniSONE 50 mg PO DAILY 4 Days #4 tab 10/24/19 Ibuprofen [Motrin] 600 mg PO Q8HR PRN #20 tab 11/01/19 Allergies Allergy/AdvReac Type Severity Reaction Status Date / Time warfarin sodium Allergy Anaphylaxis Verified 11/02/19 09:54 [From Coumadin] peas AdvReac Diarrhea Verified 11/02/19 09:54 Review of Systems ROS Statement: Those systems with pertinent positive or pertinent negative responses have been documented in the HPI. ROS Other: All systems not noted in ROS Statement are negative. 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 Limitations: no limitations General appearance: alert, in no apparent distress Head exam: Present: atraumatic, normocephalic, normal inspection Eye exam: Present: normal appearance, PERRL, EOMI. Absent: scleral icterus, conjunctival injection, periorbital swelling ENT exam: Present: normal exam, mucous membranes moist Neck exam: Present: normal inspection. Absent: tenderness, meningismus, lymphadenopathy Respiratory exam: Present: normal lung sounds bilaterally, other (tenderness over R ribs). Absent: respiratory distress, wheezes, rales, rhonchi, stridor Cardiovascular Exam: Present: regular rate, normal rhythm, normal heart sounds. Absent: systolic murmur, diastolic murmur, rubs, gallop, clicks GI/Abdominal exam: Present: soft, normal bowel sounds, other (ascites that patient reports is chronic). Absent: distended, tenderness, guarding, rebound, rigid Extremities exam: Present: normal inspection, full ROM, normal capillary refill. Absent: tenderness, pedal edema, joint swelling, calf tenderness Back exam: Present: normal inspection Neurological exam: Present: alert, oriented X3, CN II-XII intact Psychiatric exam: Present: normal affect, normal mood Skin exam: Present: warm, dry, intact, normal color. Absent: rash Course Vital Signs 11/01/19 11/01/19 11:12 12:58 Temperature 97.3 F L 98.0 F Pulse Rate 80 78 Respiratory 18 18 Rate Blood Pressure 117/76 116/56 O2 Sat by Pulse 97 98 Oximetry Medical Decision Making - Medical Decision Making 39 year old female presents after trip and fall with R rib pain. Patient has bruising over R forearm and abrasion over R knee. Full ROM of all extremities. Patient cxr and rib xray shows evidence of chronic deformities, but evidence fo a new non displaced R 7th rib. Patient has no pneumothorax or hemothorax, Vitals stable. Discussed patient needs to follow up with PCP and return parameters discussed. Given antiinflammatory medication and incentive spirometry. - Lab Data Lab Results 11/01/19 11/01/19 Range/Units 11:30 11:30 Urine Color Yellow Urine Appearance Turbid H (Clear) Urine pH 6.0 (5.0-8.0) Ur Specific [place] 1.023 (1.001-1.035) Urine Protein 1+ H (Negative) Urine Glucose (UA) Negative (Negative) Urine Ketones Negative (Negative) Urine Blood Trace H (Negative) Urine Nitrite Negative (Negative) Urine Bilirubin Negative (Negative) Urine Urobilinogen <2.0 (<2.0) mg/dL Ur Leukocyte Esterase Negative (Negative) Urine RBC 3 (0-5) /hpf Urine WBC 3 (0-5) /hpf Ur Squamous Epith Cells 59 H (0-4) /hpf Urine Bacteria Occasional H (None) /hpf Urine Mucus Few H (None) /hpf Urine HCG, Qual Not Detected (Not Detectd) - Radiology Data Radiology results: report reviewed Chronic changes with borderline mild cardiomegaly. No acute cardiac process seen. Some chronic rib deformity is in suspect prior fifth rib thoracotomy. Clinically correlate. Suspect a subtle nondisplaced fracture of the right lateral seventh rib. Disposition Clinical Impression: Fracture, rib, Contusion of multiple sites of right arm, Fall, Knee abrasion Disposition: HOME SELF-CARE Instructions (If sedation given, give patient instructions): Rib Fracture (ED) Additional Instructions: clean the knee abrasion with soap and water. Use antibiotic ointment over the area. Patient should use the incentive spirometer as discussed and take frequent deep breaths to avoid pneumonia. He is a short course of pain medicine and anti-inflammatory medicine as prescribed. Return to ED if any alarming signs or symptoms occur. Prescriptions: Ibuprofen [Motrin] 600 mg PO Q8HR PRN #20 tab PRN Reason: Pain Is patient prescribed a controlled substance at d/c from ED?: No Referrals: Devaughn Marino MD [Primary Care Provider] - 1-2 days Time of Disposition: 12:49
[2019-11-01] MEDS ORDERED: ACET/COD 300 MG/30 MG STARTER PACK 6 TAB BTL PO STA (12:50)
[2019-11-01 12:59] VITALS: BP 116/56; PULSE 78; TEMP 98
== END 2019-11-01 12:58 | disposition home or self-care (01) ==
LOC: EC 11:07
DX: S22.39XA Fracture of one rib, unspecified side, initial encounter for closed fracture (principal); S50.11XA Contusion of right forearm, initial encounter; S80.211A Abrasion, right knee, initial encounter; I48.92 Unspecified atrial flutter; E07.9 Disorder of thyroid, unspecified; Z95.1 Presence of aortocoronary bypass graft; Z79.01 Long term (current) use of anticoagulants; Z79.890 Hormone replacement therapy; Z79.899 Other long term (current) drug therapy; Z88.8 Allergy status to other drugs, medicaments and biological substances; Z91.018 Allergy to other foods; W01.0XXA Fall on same level from slipping, tripping and stumbling without subsequent striking against object, initial encounter; Y92.009 Unspecified place in unspecified non-institutional (private) residence as the place of occurrence of the external cause
CPT/HCPCS: 81001; 81025; 99284

== ENCOUNTER 2019-11-02 09:49 | Emergency (ER) | payer OTHER ==
[2019-11-02 09:54] VITALS: RESP 18
[2019-11-02] MEDS ORDERED: SODIUM CHLORIDE 0.9% 1,000 ML IV ONE (10:12)
--- NOTE | 2019-11-02 10:17 | ED ---
General Adult HPI - General Chief complaint: Dizziness Stated complaint: Dizzy Time Seen by Provider: 11/02/19 09:50 Source: patient, RN notes reviewed, old records reviewed Mode of arrival: ambulatory Limitations: no limitations - History of Present Illness Initial comments: This is a 39-year-old female who comes into the emergency room with a past med ica history for open heart surgery when she was 7 years old for some sort of valve problem she does not know what type of valve problem nor does her guardian her mother know. Patient also states she has a liver problem but neither her or her mother know what that is or what medication she takes for this. Patient comes in today complaining that she started becoming a little dizzy while she was in the hospital with her mother. Mother is in another room in the emergency department and patient states she felt like the room was spinning a little bit so she decided to go to the reading room but he continued so she decided to be seen. Patient denies headache patient denies numbness weakness. Patient denies any coordination breath. Patient denies any slurred speech. Patient denies any palpitations. Patient denies chest pain difficulty breathing shortest breath per patient denies any recent fever chills or cough per patient denies abdominal pain patient has nausea vomiting diarrhea. - Related Data Home Medications Medication Instructions Recorded Confirmed Spironolactone 50 mg PO BID 08/21/16 05/04/19 Sotalol [Betapace] 120 mg PO BID 09/12/17 05/04/19 Enoxaparin [Lovenox] 120 mg SQ HS 08/30/18 05/04/19 Ergocalciferol [Vitamin D2] 50,000 unit PO JEFFERS 05/04/19 05/04/19 Levothyroxine Sodium [Synthroid] 75 mcg PO DAILY 05/04/19 05/04/19 Previous Rx's Medication Instructions Recorded Furosemide [Lasix] 40 mg PO BID@0900,1600 #60 tab 07/11/15 predniSONE 50 mg PO DAILY 4 Days #4 tab 10/24/19 Ibuprofen [Motrin] 600 mg PO Q8HR PRN #20 tab 11/01/19 Allergies Allergy/AdvReac Type Severity Reaction Status Date / Time warfarin sodium Allergy Anaphylaxis Verified 11/02/19 09:54 [From Coumadin] peas AdvReac Diarrhea Verified 11/02/19 09:54 Review of Systems ROS Statement: Those systems with pertinent positive or pertinent negative responses have been documented in the HPI. ROS Other: All systems not noted in ROS Statement are negative. 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 7, Past Anesthesia/Blood Transfusion Reactions: No Reported Reaction Past Psychological History: No Psychological Hx Reported Smoking Status: Never smoker Past Alcohol Use History: None Reported Past Drug Use History: None Reported - Past Family History Mother Family Medical History: Asthma, Cancer, Hyperlipidemia, Hypertension Additional Family Medical History / Comment(s): Mother had breast CA at age 52 Brother(s) Family Medical History: Asthma Father Family Medical History: Asthma General Exam - General Exam Comments Initial Comments: GENERAL: Patient is well-developed and well-nourished. Patient is nontoxic and well- hydrated and is in mild distress. ENT: Neck is soft and supple. No significant lymphadenopathy is noted. Oropharynx is clear. Moist mucous membranes. Neck has full range of motion without eliciting any pain. EYES: The sclera were anicteric and conjunctiva were pink and moist. Extraocular movements were intact and pupils were equal round and reactive to light. Eyelids were unremarkable. PULMONARY: Unlabored respirations. Good breath sounds bilaterally. No audible rales rhonchi or wheezing was noted. CARDIOVASCULAR: There is a regular rate and rhythm without any murmurs gallops or rubs. ABDOMEN: Soft and nontender with normal bowel sounds. Abdomen seems mildly distended she states is normal. No palpable organomegaly was noted. There is no palpable pulsatile mass. SKIN: Skin is clear with no lesions or rashes and otherwise unremarkable. NEUROLOGIC: Patient is alert and oriented x3. Cranial nerves II through XII are grossly intact. Motor and sensory are also intact. Normal speech, volume and content. Symmetrical smile. MUSCULOSKELETAL: Normal extremities with adequate strength and full range of motion. LYMPHATICS: No significant lymphadenopathy is noted PSYCHIATRIC: Normal psychiatric evaluation. Limitations: no limitations Course Vital Signs 11/02/19 11/02/19 09:50 10:20 Temperature 97.4 F L Pulse Rate 74 Respiratory 18 Rate Blood Pressure 85/65 Blood Pressure 119/78 [Left Arm Sitting] Blood Pressure 113/76 [Left Arm Standing] Blood Pressure 124/76 [Left Arm Supine] O2 Sat by Pulse 97 Oximetry Medical Decision Making - Medical Decision Making EKG shows normal sinus rhythm at 67 bpm [place] interval is 204 QRS is 82 QT interval 370 QTC is 399. Patient's EKG is compared to an old EKG no acute changes are noted Orthostatic blood pressures were done and they were normal. Patient was asymptomatic when I went back to recheck on her at 11:15. I spoke with Dr. Marino he agreed the patient could be discharged home and he will follow-up with the patient. - Lab Data Result diagrams: 11/02/19 10:14 11/02/19 10:00 Lab Results 11/02/19 11/02/19 11/02/19 Range/Units 10:00 10:14 10:20 WBC 6.0 (3.8-10.6) k/uL RBC 5.07 (3.80-5.40) m/uL Hgb 14.3 (11.4-16.0) gm/dL Hct 44.8 (34.0-46.0) % MCV 88.3 (80.0-100.0) fL MCH 28.2 (25.0-35.0) pg MCHC 31.9 (31.0-37.0) g/dL RDW 14.2 (11.5-15.5) % Plt Count 111 L (150-450) k/uL Neutrophils % 77 % Lymphocytes % 10 % Monocytes % 7 % Eosinophils % 3 % Basophils % 1 % Neutrophils # 4.7 (1.3-7.7) k/uL Lymphocytes # 0.6 L (1.0-4.8) k/uL Monocytes # 0.4 (0-1.0) k/uL Eosinophils # 0.2 (0-0.7) k/uL Basophils # 0.1 (0-0.2) k/uL Sodium 136 L (137-145) mmol/L Potassium 4.4 (3.5-5.1) mmol/L Chloride 103 (98-107) mmol/L Carbon Dioxide 23 (22-30) mmol/L Anion Gap 10 mmol/L BUN 15 (7-17) mg/dL Creatinine 0.68 (0.52-1.04) mg/dL Est GFR (CKD-EPI)AfAm >90 (>60 ml/min/1.73 sqM) Est GFR (CKD-EPI)NonAf >90 (>60 ml/min/1.73 sqM) Glucose 74 (74-99) mg/dL Calcium 9.0 (8.4-10.2) mg/dL Total Bilirubin 0.7 (0.2-1.3) mg/dL AST 34 (14-36) U/L ALT 25 (4-34) U/L Alkaline Phosphatase 55 (38-126) U/L Troponin I <0.012 (0.000-0.034) ng/mL Total Protein 7.2 (6.3-8.2) g/dL Albumin 4.1 (3.5-5.0) g/dL Disposition Clinical Impression: Dizziness Disposition: HOME SELF-CARE Condition: Good Instructions (If sedation given, give patient instructions): Dizziness (ED) Is patient prescribed a controlled substance at d/c from ED?: No Referrals: Devaughn Marino MD [Primary Care Provider] - 1-2 days Time of Disposition: 11:17
[2019-11-02 10:37] LABS: Basophils # (A) 0.1 k/uL (0-0.2); Basophils % (A) 1 %; Eosinophils # (A) 0.2 k/uL (0-0.7); Eosinophils % (A) 3 %; HCT 44.8 % (34.0-46.0); HGB 14.3 gm/dL (11.4-16.0); Lymphocytes # (A) 0.6 k/uL (1.0-4.8); Lymphocytes % (A) 10 %; MCH 28.2 pg (25.0-35.0); MCHC 31.9 g/dL (31.0-37.0); MCV 88.3 fL (80.0-100.0); Mean Platelet Volume 8.9; Monocytes # (A) 0.4 k/uL (0-1.0); Monocytes % (A) 7 %; Neutrophils # (A) 4.7 k/uL (1.3-7.7); Neutrophils % (A) 77 %; Platelet Count 111 k/uL (150-450); RBC 5.07 m/uL (3.80-5.40); RDW 14.2 % (11.5-15.5)
[2019-11-02 10:42] LABS: ALT 25 U/L (4-34); AST 34 U/L (14-36); African American GFR (CKD) >90 (>60 ml/min/1.73 sqM); Albumin 4.1 g/dL (3.5-5.0); Alkaline Phosphatase 55 U/L (38-126); Anion Gap 10 mmol/L; Blood Urea Nitrogen 15 mg/dL (7-17); Carbon Dioxide 23 mmol/L (22-30); Chloride 103 mmol/L (98-107); Glucose 74 mg/dL (74-99); Non-African American GFR(CKD) >90 (>60 ml/min/1.73 sqM); Potassium 4.4 mmol/L (3.5-5.1); Sodium 136 mmol/L (137-145); Total Bilirubin 0.7 mg/dL (0.2-1.3); Total Protein 7.2 g/dL (6.3-8.2)
[2019-11-02 11:39] VITALS: BP 123/76; PULSE 92; TEMP 97.5
== END 2019-11-02 11:39 | disposition home or self-care (01) ==
LOC: EC 09:49
DX: R42 Dizziness and giddiness (principal); I48.92 Unspecified atrial flutter; E07.9 Disorder of thyroid, unspecified; Z79.01 Long term (current) use of anticoagulants; Z79.890 Hormone replacement therapy; Z79.899 Other long term (current) drug therapy; Z88.8 Allergy status to other drugs, medicaments and biological substances; Z95.1 Presence of aortocoronary bypass graft; Z91.010 Allergy to peanuts; Z87.74 Personal history of (corrected) congenital malformations of heart and circulatory system; Z82.49 Family history of ischemic heart disease and other diseases of the circulatory system
CPT/HCPCS: 93005; 96360; 99284

== ENCOUNTER 2019-11-02 16:23 | Inpatient (IN) | payer OTHER ==
[2019-11-02] MEDS ORDERED: ONDANSETRON 4 MG/2 ML VIAL IVP STA (16:55)
[2019-11-02] MEDS ORDERED: SODIUM CHLORIDE 0.9% 500 ML 500 ML IV STA (16:55)
[2019-11-02 17:07] LABS: Basophils # (A) 0.1 k/uL (0-0.2); Basophils % (A) 1 %; Eosinophils # (A) 0.2 k/uL (0-0.7); Eosinophils % (A) 3 %; HCT 48.4 % (34.0-46.0); HGB 15.3 gm/dL (11.4-16.0); Lymphocytes # (A) 0.5 k/uL (1.0-4.8); Lymphocytes % (A) 8 %; MCH 27.6 pg (25.0-35.0); MCHC 31.6 g/dL (31.0-37.0); MCV 87.4 fL (80.0-100.0); Mean Platelet Volume 9.5; Monocytes # (A) 0.3 k/uL (0-1.0); Monocytes % (A) 5 %; Neutrophils # (A) 5.6 k/uL (1.3-7.7); Neutrophils % (A) 82 %; Platelet Count 110 k/uL (150-450); RBC 5.54 m/uL (3.80-5.40); RDW 14.2 % (11.5-15.5); WBC 6.8 k/uL (3.8-10.6)
[2019-11-02 17:15] LABS: ALT 24 U/L (4-34); AST 35 U/L (14-36); Acetaminophen <10.0 ug/mL; African American GFR (CKD) >90 (>60 ml/min/1.73 sqM); Albumin 4.7 g/dL (3.5-5.0); Alkaline Phosphatase 73 U/L (38-126); Anion Gap 11 mmol/L; Blood Urea Nitrogen 12 mg/dL (7-17); Calcium 9.4 mg/dL (8.4-10.2); Carbon Dioxide 23 mmol/L (22-30); Chloride 103 mmol/L (98-107); Glucose 98 mg/dL (74-99); Non-African American GFR(CKD) >90 (>60 ml/min/1.73 sqM); Potassium 4.2 mmol/L (3.5-5.1); Sodium 137 mmol/L (137-145); Total Bilirubin 1.3 mg/dL (0.2-1.3); Total Protein 8.1 g/dL (6.3-8.2)
[2019-11-02] MEDS ORDERED: LORazepam 2 MG/ML INJ IM STA (17:17)
--- NOTE | 2019-11-02 17:23 | ED ---
General Adult HPI - General Source: patient, EMS Mode of arrival: EMS Limitations: no limitations <Atiya Mchugh - Last Filed: 11/02/19 20:34> <Victoriano Bourgeois - Last Filed: 11/02/19 20:45> - General Chief complaint: Nausea/Vomiting/Diarrhea Stated complaint: NVD Time Seen by Provider: 11/02/19 16:41 - History of Present Illness Initial comments: Patient is a 39-year-old female presenting to the emergency Department via EMS with complaints of nausea and vomiting. Patient was just in the ER this morning. Patient was having lightheadedness. Workup was completed and showed no acute abnormalities, patient was discharged. EMS was called again saying that patient was having nausea and vomiting. Upon arrival, patient has been putting her fingers down her throat to aid in vomiting. She denies any pain at this time, only complaint is nausea. She denies taking any medications or drugs. She has no other complaints at this time. Upon arrival to the ER vitals are stable. (Atiya Mchugh) - Related Data Home Medications Medication Instructions Recorded Confirmed Spironolactone 50 mg PO BID 08/21/16 05/04/19 Sotalol [Betapace] 120 mg PO BID 09/12/17 05/04/19 Enoxaparin [Lovenox] 120 mg SQ HS 08/30/18 05/04/19 Ergocalciferol [Vitamin D2] 50,000 unit PO JEFFERS 05/04/19 05/04/19 Levothyroxine Sodium [Synthroid] 75 mcg PO DAILY 05/04/19 05/04/19 Previous Rx's Medication Instructions Recorded Furosemide [Lasix] 40 mg PO BID@0900,1600 #60 tab 07/11/15 predniSONE 50 mg PO DAILY 4 Days #4 tab 10/24/19 Ibuprofen [Motrin] 600 mg PO Q8HR PRN #20 tab 11/01/19 Allergies Allergy/AdvReac Type Severity Reaction Status Date / Time warfarin sodium Allergy Anaphylaxis Verified 11/02/19 16:38 [From Coumadin] peas AdvReac Diarrhea Verified 11/02/19 16:38 Review of Systems ROS Other: All systems not noted in ROS Statement are negative. <Atiya Mchugh - Last Filed: 11/02/19 20:34> ROS Other: All systems not noted in ROS Statement are negative. <Victoriano Bourgeois - Last Filed: 11/02/19 20:45> ROS Statement: Those systems with pertinent positive or pertinent negative responses have been documented in the HPI. 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 7, Past Anesthesia/Blood Transfusion Reactions: No Reported Reaction Past Psychological History: No Psychological Hx Reported Smoking Status: Never smoker Past Alcohol Use History: None Reported Past Drug Use History: None Reported - Past Family History Mother Family Medical History: Asthma, Cancer, Hyperlipidemia, Hypertension Additional Family Medical History / Comment(s): Mother had breast CA at age 52 Brother(s) Family Medical History: Asthma Father Family Medical History: Asthma <Atiya Mchugh Aurea - Last Filed: 11/02/19 20:34> General Exam Limitations: no limitations <Atiya Mchugh Aurea - Last Filed: 11/02/19 20:34> - General Exam Comments Initial Comments: GENERAL: Patient appears lethargic, putting her fingers down her throat to aid in vo miting, in no acute distress. HEAD: Atraumatic, normocephalic. EYES: Pupils equal round and reactive to light, extraocular movements intact, sclera anicteric, conjunctiva are normal. ENT: TMs normal, nares patent, oropharynx clear without exudates. Moist mucous membranes. NECK: Normal range of motion, supple without lymphadenopathy or JVD. LUNGS: Breath sounds clear to auscultation bilaterally and equal. No wheezes rales or rhonchi. HEART: Regular rate and rhythm without murmurs, rubs or gallops. ABDOMEN: Soft, nontender, normoactive bowel sounds. No guarding, no rebound. No masses appreciated. : Deferred EXTREMITIES: Normal range of motion, no pitting or edema. No clubbing or cyanosis. NEUROLOGICAL: Cranial nerves II through XII grossly intact. Normal speech, normal gait. PSYCH: Normal mood, normal affect. SKIN: Warm, Dry, normal turgor, no rashes or lesions noted. (Atiya Mchugh) Course Vital Signs 11/02/19 11/02/19 16:38 17:39 Temperature 97.9 F Pulse Rate 89 90 Respiratory 18 16 Rate Blood Pressure 102/72 101/65 O2 Sat by Pulse 98 100 Oximetry Medical Decision Making - Lab Data Result diagrams: 11/02/19 17:00 11/02/19 17:00 <Atiya Mchugh - Last Filed: 11/02/19 20:34> - Lab Data Result diagrams: 11/02/19 17:00 11/02/19 17:00 <Victoriano Bourgeois - Last Filed: 11/02/19 20:45> - Medical Decision Making Patient was reexamined and reevaluated by myself, Dr. Bourgeois. Patient resting comfortably in bed. Patient is more cooperative at this time however still complains of nausea. Results reviewed. Case discussed with Dr. Marino who will keep his patient for observation. He is aware that IV is not present at this time. (Victoriano Bourgeois) - Lab Data Lab Results 11/02/19 11/02/19 11/02/19 Range/Units 17:00 17:00 17:00 WBC 6.8 (3.8-10.6) k/uL RBC 5.54 H (3.80-5.40) m/uL Hgb 15.3 (11.4-16.0) gm/dL Hct 48.4 H (34.0-46.0) % MCV 87.4 (80.0-100.0) fL MCH 27.6 (25.0-35.0) pg MCHC 31.6 (31.0-37.0) g/dL RDW 14.2 (11.5-15.5) % Plt Count 110 L (150-450) k/uL Neutrophils % 82 % Lymphocytes % 8 % Monocytes % 5 % Eosinophils % 3 % Basophils % 1 % Neutrophils # 5.6 (1.3-7.7) k/uL Lymphocytes # 0.5 L (1.0-4.8) k/uL Monocytes # 0.3 (0-1.0) k/uL Eosinophils # 0.2 (0-0.7) k/uL Basophils # 0.1 (0-0.2) k/uL Sodium 137 (137-145) mmol/L Potassium 4.2 (3.5-5.1) mmol/L Chloride 103 (98-107) mmol/L Carbon Dioxide 23 (22-30) mmol/L Anion Gap 11 mmol/L BUN 12 (7-17) mg/dL Creatinine 0.70 (0.52-1.04) mg/dL Est GFR (CKD-EPI)AfAm >90 (>60 ml/min/1.73 sqM) Est GFR (CKD-EPI)NonAf >90 (>60 ml/min/1.73 sqM) Glucose 98 (74-99) mg/dL Calcium 9.4 (8.4-10.2) mg/dL Total Bilirubin 1.3 (0.2-1.3) mg/dL AST 35 (14-36) U/L ALT 24 (4-34) U/L Alkaline Phosphatase 73 (38-126) U/L Ammonia 11 (<30) umol/L Troponin I (0.000-0.034) ng/mL Total Protein 8.1 (6.3-8.2) g/dL Albumin 4.7 (3.5-5.0) g/dL Urine Color Urine Appearance (Clear) Urine pH (5.0-8.0) Ur Specific Orient (1.001-1.035) Urine Protein (Negative) Urine Glucose (UA) (Negative) Urine Ketones (Negative) Urine Blood (Negative) Urine Nitrite (Negative) Urine Bilirubin (Negative) Urine Urobilinogen (<2.0) mg/dL Ur Leukocyte Esterase (Negative) Urine HCG, Qual (Not Detectd) Urine Opiates Screen (NotDetected) Ur Oxycodone Screen (NotDetected) Urine Methadone Screen (NotDetected) Ur Propoxyphene Screen (NotDetected) Acetaminophen <10.0 ug/mL Ur Barbiturates Screen (NotDetected) U Tricyclic Antidepress (NotDetected) Ur Phencyclidine Scrn (NotDetected) Ur Amphetamines Screen (NotDetected) U Methamphetamines Scrn (NotDetected) U Benzodiazepines Scrn (NotDetected) Urine Cocaine Screen (NotDetected) U Marijuana (THC) Screen (NotDetected) Serum Alcohol mg/dL 11/02/19 11/02/19 11/02/19 Range/Units 18:35 18:44 19:00 WBC (3.8-10.6) k/uL RBC (3.80-5.40) m/uL Hgb (11.4-16.0) gm/dL Hct (34.0-46.0) % MCV (80.0-100.0) fL MCH (25.0-35.0) pg MCHC (31.0-37.0) g/dL RDW (11.5-15.5) % Plt Count (150-450) k/uL Neutrophils % % Lymphocytes % % Monocytes % % Eosinophils % % Basophils % % Neutrophils # (1.3-7.7) k/uL Lymphocytes # (1.0-4.8) k/uL Monocytes # (0-1.0) k/uL Eosinophils # (0-0.7) k/uL Basophils # (0-0.2) k/uL Sodium (137-145) mmol/L Potassium (3.5-5.1) mmol/L Chloride (98-107) mmol/L Carbon Dioxide (22-30) mmol/L Anion Gap mmol/L BUN (7-17) mg/dL Creatinine (0.52-1.04) mg/dL Est GFR (CKD-EPI)AfAm (>60 ml/min/1.73 sqM) Est GFR (CKD-EPI)NonAf (>60 ml/min/1.73 sqM) Glucose (74-99) mg/dL Calcium (8.4-10.2) mg/dL Total Bilirubin (0.2-1.3) mg/dL AST (14-36) U/L ALT (4-34) U/L Alkaline Phosphatase (38-126) U/L Ammonia (<30) umol/L Troponin I <0.012 (0.000-0.034) ng/mL Total Protein (6.3-8.2) g/dL Albumin (3.5-5.0) g/dL Urine Color Light Yellow Urine Appearance Clear (Clear) Urine pH 8.0 (5.0-8.0) Ur Specific Orient 1.009 (1.001-1.035) Urine Protein Negative (Negative) Urine Glucose (UA) Negative (Negative) Urine Ketones Negative (Negative) Urine Blood Negative (Negative) Urine Nitrite Negative (Negative) Urine Bilirubin Negative (Negative) Urine Urobilinogen <2.0 (<2.0) mg/dL Ur Leukocyte Esterase Negative (Negative) Urine HCG, Qual (Not Detectd) Urine Opiates Screen Detected H (NotDetected) Ur Oxycodone Screen Not Detected (NotDetected) Urine Methadone Screen Not Detected (NotDetected) Ur Propoxyphene Screen Not Detected (NotDetected) Acetaminophen ug/mL Ur Barbiturates Screen Not Detected (NotDetected) U Tricyclic Antidepress Not Detected (NotDetected) Ur Phencyclidine Scrn Not Detected (NotDetected) Ur Amphetamines Screen Not Detected (NotDetected) U Methamphetamines Scrn Not Detected (NotDetected) U Benzodiazepines Scrn Not Detected (NotDetected) Urine Cocaine Screen Not Detected (NotDetected) U Marijuana (THC) Screen Not Detected (NotDetected) Serum Alcohol <10 mg/dL 11/02/19 Range/Units 19:00 WBC (3.8-10.6) k/uL RBC (3.80-5.40) m/uL Hgb (11.4-16.0) gm/dL Hct (34.0-46.0) % MCV (80.0-100.0) fL MCH (25.0-35.0) pg MCHC (31.0-37.0) g/dL RDW (11.5-15.5) % Plt Count (150-450) k/uL Neutrophils % % Lymphocytes % % Monocytes % % Eosinophils % % Basophils % % Neutrophils # (1.3-7.7) k/uL Lymphocytes # (1.0-4.8) k/uL Monocytes # (0-1.0) k/uL Eosinophils # (0-0.7) k/uL Basophils # (0-0.2) k/uL Sodium (137-145) mmol/L Potassium (3.5-5.1) mmol/L Chloride (98-107) mmol/L Carbon Dioxide (22-30) mmol/L Anion Gap mmol/L BUN (7-17) mg/dL Creatinine (0.52-1.04) mg/dL Est GFR (CKD-EPI)AfAm (>60 ml/min/1.73 sqM) Est GFR (CKD-EPI)NonAf (>60 ml/min/1.73 sqM) Glucose (74-99) mg/dL Calcium (8.4-10.2) mg/dL Total Bilirubin (0.2-1.3) mg/dL AST (14-36) U/L ALT (4-34) U/L Alkaline Phosphatase (38-126) U/L Ammonia (<30) umol/L Troponin I (0.000-0.034) ng/mL Total Protein (6.3-8.2) g/dL Albumin (3.5-5.0) g/dL Urine Color Urine Appearance (Clear) Urine pH (5.0-8.0) Ur Specific Orient (1.001-1.035) Urine Protein (Negative) Urine Glucose (UA) (Negative) Urine Ketones (Negative) Urine Blood (Negative) Urine Nitrite (Negative) Urine Bilirubin (Negative) Urine Urobilinogen (<2.0) mg/dL Ur Leukocyte Esterase (Negative) Urine HCG, Qual Not Detected (Not Detectd) Urine Opiates Screen (NotDetected) Ur Oxycodone Screen (NotDetected) Urine Methadone Screen (NotDetected) Ur Propoxyphene Screen (NotDetected) Acetaminophen ug/mL Ur Barbiturates Screen (NotDetected) U Tricyclic Antidepress (NotDetected) Ur Phencyclidine Scrn (NotDetected) Ur Amphetamines Screen (NotDetected) U Methamphetamines Scrn (NotDetected) U Benzodiazepines Scrn (NotDetected) Urine Cocaine Screen (NotDetected) U Marijuana (THC) Screen (NotDetected) Serum Alcohol mg/dL Disposition <Atiya Mchugh - Last Filed: 11/02/19 20:34> Is patient prescribed a controlled substance at d/c from ED?: No Decision Time: 20:45 <Victoriano Bourgeois - Last Filed: 11/02/19 20:45> Clinical Impression: Nausea & vomiting, Agitation Disposition: ADMITTED IP TO THIS HOSP Referrals: Devaughn Marino MD [Primary Care Provider] - 1-2 days
[2019-11-02 19:07] LABS: Appearance,Urine Clear (Clear); Bilirubin,Urine Negative (Negative); Blood,Urine Negative (Negative); Color,Urine Light Yellow; Glucose,Urine (UA) Negative (Negative); Ketones,Urine Negative (Negative); Leukocyte Esterase,Urine Negative (Negative); Nitrite,Urine Negative (Negative); Protein,Urine Negative (Negative); Specific Gravity,Urine 1.009 (1.001-1.035); Urobilinogen,Urine <2.0 mg/dL (<2.0)
--- NOTE | 2019-11-02 19:26 | CT ---
EXAMINATION TYPE: CT brain wo con DATE OF EXAM: 11/02/2019 COMPARISON: 07/01/2013 INDICATION: Altered mental status DLP: 1185.4 mGycm, Automated exposure control for dose reduction was used. CONTRAST: None CT of the brain is performed utilizing 3 mm thick sections through the posterior fossa and 3 mm thick sections through the remaining calvarium. Study is performed within 24 hours of arrival to the hosp ital. No abnormal hyperdensity is present to suggest an acute intracranial hemorrhage. No mass lesion is evident. There is some periventricular calcification present bilaterally. No vasoge zaid edema is evident. Findings are likely related to chronic in utero changes or chronic changes. No acute infarcts are evident. Periventricular white matter hypodensity is present, likely on the bas is of chronic white matter ischemic changes. Ventricles and sulci are somewhat prominent for the patient age. Paranasal sinuses and mastoid air cells within the [id number] are clear. IMPRESSIONS: 1. Stable chronic changes. 2. No acute intracranial process evident by CT exam. MRI could be performed if closer evaluation woul d be of benefit.
[2019-11-02 19:29] LABS: Amphetamine Screen,Urine Not Detected (NotDetected); Barbiturate Screen,Urine Not Detected (NotDetected); Benzodiazepines Screen,Urine Not Detected (NotDetected); Cocaine Screen,Urine Not Detected (NotDetected); Methadone Screen, Urine Not Detected (NotDetected); Opiate Screen,Urine Detected (NotDetected); Oxycodone Screen, Urine Not Detected (NotDetected); Phencyclidine Screen,Urine Not Detected (NotDetected); Tricyclic Antidepressant,Urine Not Detected (NotDetected); Urn Cannabinoid Scrn Not Detected (NotDetected)
[2019-11-02] MEDS ORDERED: METOCLOPRAMIDE 5 MG/ML 2 ML VIAL IM STA (19:41)
[2019-11-02] MEDS ORDERED: LORazepam 2 MG/ML INJ IV PRN (20:46)
[2019-11-02] MEDS ORDERED: NALOXONE 0.4 MG/ML 1 ML VIAL IV PRN (20:46)
[2019-11-02] MEDS: PANTOPRAZOLE 40 MG/10 ML VIAL IV SCH (21:49)
[2019-11-02] MEDS: SODIUM CHLORIDE 0.9% 1,000 ML IV SCH (21:49)
[2019-11-03] MEDS: SODIUM CHLORIDE 0.9% 1,000 ML IV SCH ×2 (09:25→22:00)
[2019-11-03] MEDS: PANTOPRAZOLE 40 MG/10 ML VIAL IV SCH (09:25)
[2019-11-03] MEDS: HYDROmorphone 0.5 MG/0.5 ML SYRINGE IVP PRN ×2 (15:47→21:56)
[2019-11-03] MEDS: ONDANSETRON 4 MG/2 ML VIAL IVP PRN ×2 (15:50→21:55)
--- NOTE | 2019-11-03 16:54 | P.HPIM ---
History of Present Illness H&P Date: 11/03/19 Asuncion Rizzo is a 39-year-old female who presented to [facility] emergency room with vague symptoms of headache and cough and nausea she was evaluated in the emergency room all her testing were negative she was discharged home however she returned to the emergency room several hours later with worsening of her symptoms with severe headache and vomiting she was reevaluated computed tomography scan of the brain was within normal limits all her blood tests were within normal limits patient was admitted to the hospital for further evaluation. Patient was seen and examined on the medical floor she is alert and oriented in no apparent distress, she is complaining of headache, she is complaining of cough complaining of nausea and vomiting, otherwise she denies any complaints t here is no fever or chills no dizziness no chest pain no abdominal pain, she has some diarrhea, there is no burning was urination no frequency or urgency and no hematuria. Patient has a known history of congenital heart disease she also has history of liver cirrhosis. 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 7, Past Anesthesia/Blood Transfusion Reactions: No Reported Reaction Past Psychological History: No Psychological Hx Reported Smoking Status: Never smoker Past Alcohol Use History: None Reported Past Drug Use History: None Reported - Past Family History Mother Family Medical History: Asthma, Cancer, Hyperlipidemia, Hypertension Additional Family Medical History / Comment(s): Mother had breast CA at age 52 Brother(s) Family Medical History: Asthma Father Family Medical History: Asthma Medications and Allergies Home Medications Medication Instructions Recorded Confirmed Type No Known Home Medications 11/02/19 11/02/19 History Allergies Allergy/AdvReac Type Severity Reaction Status Date / Time warfarin sodium Allergy Anaphylaxis Verified 11/02/19 21:02 [From Coumadin] peas AdvReac Diarrhea Verified 11/02/19 21:02 Physical Exam Vitals: Vital Signs Temp Pulse Pulse Resp BP BP Pulse Ox 11/03/19 15:00 98.0 F 86 17 107/73 92 L 11/03/19 07:00 97.9 F 87 17 101/67 94 L 11/03/19 03:52 99.0 F 78 17 90/58 97 11/02/19 23:00 92/61 11/02/19 22:45 97.6 F 79 89/59 97 11/02/19 22:15 98.7 F 81 16 103/61 99 11/02/19 21:54 74 16 95/59 100 11/02/19 19:00 81 16 103/84 96 11/02/19 17:39 90 16 101/65 100 Intake and Output 11/03/19 11/03/19 11/03/19 06:59 14:59 22:59 Intake Total 640 Output Total 400 Balance -400 640 Intake: IV 640 Sodium Chloride 0.9% 1, 640 000 ml @ 80 mls/hr IV . [id number] PIOTR Rx#:[id number] Output: Urine 400 Other: Voiding Method Toilet Toilet # Voids 1 1 In general patient is alert and oriented in no apparent distress HEENT head normocephalic and atraumatic Neck is supple no JVD no goiter no lymphadenopathy Chest exam reveals a few scattered rhonchi no wheezing Cardiac exam reveals regular heart sounds no gallops no murmurs Abdomen is soft nontender no organomegaly was normal bowel sounds Extremity exam reveals no edema Results CBC & Chem 7: 11/02/19 17:00 11/02/19 17:00 Labs: Abnormal Lab Results - Last 24 Hours (Table) 11/02/19 11/02/19 Range/Units 17:00 19:00 RBC 5.54 H (3.80-5.40) m/uL Hct 48.4 H (34.0-46.0) % Plt Count 110 L (150-450) k/uL Lymphocytes # 0.5 L (1.0-4.8) k/uL Urine Opiates Screen Detected H (NotDetected) Thrombosis Risk Factor Assmnt - Choose All That Apply Any of the Below Risk Factors Present?: No Other Risk Factors: No Other congenital or acquired thrombophilia - If yes, enter type in comment: No Thrombosis Risk Factor Assessment Level: Very Low Risk Assessment and Plan Plan: #1 headaches symptoms of headache, nausea vomiting and generalized malaise, all testing including Covid 19 has been negative so far. #2 underlying history of congenital heart disease #3 underlying history of liver cirrhosis At this time will obtain abdomen ultrasound will obtain echocardiogram Will consult gastroenterology and cardiology Will treat symptomatically until further information
--- NOTE | 2019-11-03 18:03 | XR ---
EXAMINATION TYPE: XR chest 1V portable DATE OF EXAM: 11/03/2019 Comparison: 11/01/2019 Clinical History: 39-year-old female cough Findings: Median sternotomy wires are present. Surgical clips right superior and middle mediastinum. Heart bord yosef to mildly enlarged. Old bilateral rib fracture deformities. No jeff consolidation or pleural effusion. Mild interstitial prominence is unchanged. Impression: Chronic changes. No definite acute process.
[2019-11-04] MEDS: HYDROmorphone 0.5 MG/0.5 ML SYRINGE IVP PRN (05:58)
[2019-11-04] MEDS: ONDANSETRON 4 MG/2 ML VIAL IVP PRN ×2 (05:59→17:41)
[2019-11-04] MEDS: PANTOPRAZOLE 40 MG/10 ML VIAL IV SCH (08:52)
[2019-11-04 09:30] LABS: Basophils # (A) 0.1 k/uL (0-0.2); Basophils % (A) 1 %; Eosinophils # (A) 0.1 k/uL (0-0.7); Eosinophils % (A) 2 %; HCT 46.5 % (34.0-46.0); HGB 14.8 gm/dL (11.4-16.0); Lymphocytes # (A) 0.6 k/uL (1.0-4.8); Lymphocytes % (A) 9 %; MCHC 31.9 g/dL (31.0-37.0); MCV 87.9 fL (80.0-100.0); Mean Platelet Volume 9.2; Monocytes # (A) 0.4 k/uL (0-1.0); Monocytes % (A) 7 %; Neutrophils # (A) 5.4 k/uL (1.3-7.7); Neutrophils % (A) 81 %; Platelet Count 106 k/uL (150-450); RDW 14.3 % (11.5-15.5); WBC 6.7 k/uL (3.8-10.6)
[2019-11-04 09:47] LABS: ALT 16 U/L (4-34); AST 24 U/L (14-36); African American GFR (CKD) >90 (>60 ml/min/1.73 sqM); Albumin 3.6 g/dL (3.5-5.0); Alkaline Phosphatase 54 U/L (38-126); Anion Gap 10 mmol/L; Blood Urea Nitrogen 9 mg/dL (7-17); Calcium 8.6 mg/dL (8.4-10.2); Carbon Dioxide 19 mmol/L (22-30); Chloride 105 mmol/L (98-107); Glucose 76 mg/dL (74-99); Non-African American GFR(CKD) >90 (>60 ml/min/1.73 sqM); Potassium 3.8 mmol/L (3.5-5.1); Sodium 134 mmol/L (137-145); Total Bilirubin 1.8 mg/dL (0.2-1.3); Total Protein 6.7 g/dL (6.3-8.2)
--- NOTE | 2019-11-04 10:32 | US ---
EXAMINATION TYPE: US abdomen complete DATE OF EXAM: 11/04/2019 COMPARISON: CLINICAL HISTORY: vomiting. N/V EXAM MEASUREMENTS: Liver Length: 12.8 cm Gallbladder Wall: 0.3 cm CBD: 0.2 cm Spleen: 15.0 cm Right Kidney: 8.8 x 3.8 x 4.1 cm Left Kidney: 8.9 x 3.5 x 4.0 cm Pancreas: head and tail obscured by overlying bowel gas. Main pancreatic duct = 2.1 mm Liver: Heterogenous and appears lobular. Portal kim appears echogenic. Gallbladder: wnl Evidence for sonographic Quevedo's sign: neg CBD: wnl Spleen: Enlarged in size Right Kidney: No hydronephrosis or masses seen Left Kidney: No hydronephrosis or masses seen Upper IVC: wnl Abd Aorta: Mid and distal portion obscured by overlying bowel gas Ascites visualized in both RLQ and LLQ, with RLQ>LLQ Limited views of the pancreas are unremarkable. The liver is normal in size without biliary dilatation. The gallbladder is unremarkable without cholelithiasis. Gallbladder wall measures 2 mm. The distal co mmon hepatic duct measures 2 mm. Both kidneys are unremarkable. The spleen is enlarged measuring 15 cm. Limited views of the aorta and IVC are unremarkable. IMPRESSION: 1. LIMITED EXAMINATION. 2. SPLENOMEGALY.
--- NOTE | 2019-11-04 10:55 | CONS ---
CONSULTATION DATE OF DICTATION: November 04, 2019. REQUESTING PHYSICIAN: Dr. Marino. REASON FOR CONSULTATION: Headache, nausea, vomiting. HISTORY OF PRESENT ILLNESS: The patient is a 39-year-old pleasant white female with history of congenital heart disease and history of underlying chronic liver disease who was admitted to the hospital. She presents to the emergency room yesterday complaining of severe headaches that started yesterday morning. The headache continued to progressively get worse. She normally takes Motrin, but did not have any at home. She came to the emergency room. Subsequently, the patient started having severe nausea vomiting and threw up at least 4 or 5 times yesterday, came to the emergency room and subsequently admitted to hospital for further evaluation. She was also complaining of some epigastric discomfort. This morning she still has persistent headache. She still has nausea but no emesis. No prior history of peptic ulcer disease. HOME MEDICATIONS: Include spironolactone, sotalol, Lovenox, vitamin D2 and Synthroid. ALLERGIES: TO COUMADIN. PAST MEDICAL HISTORY: Atrial flutter, congenital heart disease, chronic liver disease, hypothyroidism, asthma. PAST SURGICAL HISTORY: Heart surgery for congenital heart disease as an , D and C, paracentesis for chronic liver disease with cirrhosis of the liver. SOCIAL HISTORY: No smoking. No alcohol use. FAMILY HISTORY: Mother had hypertension, hyperlipidemia and breast cancer. Brother has asthma. Father has asthma. REVIEW OF SYSTEMS: CARDIOPULMONARY: She denies any chest pain, shortness of breath. No dysuria or hematuria. MUSCULOSKELETAL severe headaches. NEUROLOGY severe headaches. ENT/vision unremarkable. CONSTITUTIONAL: No recent weight loss. No fever, chills, night sweats. GI as mentioned above. HEMATOLOGY unremarkable. PSYCHIATRIC unremarkable. PHYSICAL EXAMINATION: She appears comfortable. No apparent distress. Vital signs stable. Blood pressure is 114/76, pulse 77, temperature 97.6. HEENT examination unremarkable. Conjunctivae pink. Sclerae anicteric. Oral cavity no lesions. NECK: No JVD or lymph node enlargement. CHEST: Clear to auscultation. HEART: Regular rate and rhythm. ABDOMEN: Soft. Bowel sounds are positive. There was minimal tenderness in the epigastric area. No ascites noted. EXTREMITIES: No pedal edema. SKIN no rashes. NEUROLOGIC: Alert and oriented x3. No focal deficits. LABS: WBC 6.8, hemoglobin 15.3, platelets 110. Rest of the labs within normal limits. Basic metabolic panel is within normal limits. Covid-19 was negative. IMPRESSION: 1. Severe headaches with intractable nausea and vomiting since yesterday morning. The patient does have chronic headaches for several years duration. She normally takes Motrin at home but did not have any medication and hence was admitted to the hospital for further management. Presently receiving Dilaudid for the chronic headache. She is feeling somewhat better today. 2. History of chronic liver disease, which appears to be well compensated, clinically no evidence of ascites. 3. History of congenital heart disease status post surgery as an . RECOMMENDATIONS: 1. Start on clear liquid diet. 2. Continue with Protonix 40 mg daily. 3. Antiemetics as needed. 4. No need for any endoscopy intervention at this present time. 5. We will continue with symptomatic and supportive care and follow her closely. Thank you for this consultation. RADHA / JIMMYN: [id number] /
--- NOTE | 2019-11-04 12:58 | P.CRDCN ---
History of Present Illness Consult date: 11/04/19 History of present illness: This is a 39-year-old female with history of tricuspid atresia, status post Fontan procedure was admitted to the hospital mainly with a severe headache, cough and nausea. Patient also fell and sustained some soft tissue injury on the right side. She also had developed severe nausea and vomiting. She complains of epigastric and lower abdominal discomfort. Denies any chest pain or shortness of breath. Patient was seen by gastroenterology for abdominal discomfort. From Cardec standpoint, I do not see any acute problem at this time. Echo Cardigan showed normal LV function. Continue current medical therapy and will be seeing her on a when necessary basis Review of Systems As per the chart 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 7, Past Anesthesia/Blood Transfusion Reactions: No Reported Reaction Past Psychological History: No Psychological Hx Reported Smoking Status: Never smoker Past Alcohol Use History: None Reported Past Drug Use History: None Reported - Past Family History Mother Family Medical History: Asthma, Cancer, Hyperlipidemia, Hypertension Additional Family Medical History / Comment(s): Mother had breast CA at age 52 Brother(s) Family Medical History: Asthma Father Family Medical History: Asthma Medications and Allergies Home Medications Medication Instructions Recorded Confirmed Type No Known Home Medications 11/02/19 11/02/19 History Allergies Allergy/AdvReac Type Severity Reaction Status Date / Time warfarin sodium Allergy Anaphylaxis Verified 11/02/19 21:02 [From Coumadin] peas AdvReac Diarrhea Verified 11/02/19 21:02 Physical Exam Vitals: Vital Signs Temp Pulse Resp BP Pulse Ox 11/04/19 08:04 97.6 F 77 16 114/76 98 11/04/19 02:16 97.8 F 74 19 105/71 96 11/03/19 20:00 97.6 F 77 15 114/76 98 11/03/19 15:00 98.0 F 86 17 107/73 92 L Intake and Output 11/03/19 11/04/19 11/04/19 22:59 06:59 14:59 Output Total 400 Balance -400 Output: Urine 400 Other: Voiding Method Toilet # Voids 2 GENERAL EXAM: Patient is alert and oriented and doesn't appear to be in any acute distress HEENT: Normocephalic. Normal reaction of pupils, equal size, normal range of ext raocular motion. No erythema or exudates in the throat. NECK: No masses, no nuchal rigidity. CHEST: No chest wall deformity. LUNGS: [Equal air entry with no crackles or wheeze.] HEART: [S1 and S2 normal with no audible mumurs or gallops. Regular rhythm, femorals equal on both sides..] ABDOMEN: Protuberant and mild tenderness SKIN: No rashes CENTRAL NERVOUS SYSTEM: No focal deficits. EXTREMITIES: [No cyanosis, clubbing or edema.] Results 11/04/19 09:05 11/04/19 09:05 Cardiac Enzymes 11/04/19 Range/Units 09:05 AST 24 (14-36) U/L CBC 11/04/19 Range/Units 09:05 WBC 6.7 (3.8-10.6) k/uL RBC 5.30 (3.80-5.40) m/uL Hgb 14.8 (11.4-16.0) gm/dL Hct 46.5 H (34.0-46.0) % Plt Count 106 L (150-450) k/uL Comprehensive Metabolic Panel 11/04/19 Range/Units 09:05 Sodium 134 L (137-145) mmol/L Potassium 3.8 (3.5-5.1) mmol/L Chloride 105 (98-107) mmol/L Carbon Dioxide 19 L (22-30) mmol/L BUN 9 (7-17) mg/dL Creatinine 0.68 (0.52-1.04) mg/dL Glucose 76 (74-99) mg/dL Calcium 8.6 (8.4-10.2) mg/dL AST 24 (14-36) U/L ALT 16 (4-34) U/L Alkaline Phosphatase 54 (38-126) U/L Total Protein 6.7 (6.3-8.2) g/dL Albumin 3.6 (3.5-5.0) g/dL Current Medications Generic Name Dose Route Start Last Admin Trade Name Freq PRN Reason Stop Dose Admin Hydromorphone HCl 0.5 mg 11/03/19 15:13 11/04/19 05:58 Dilaudid IVP 0.5 mg Q3HR PRN Administration Pain Sodium Chloride 1,000 mls @ 80 mls/hr 11/02/19 21:00 11/03/19 22:00 Saline 0.9% IV 80 mls/hr .[id number] PIOTR Administration Lorazepam 0.5 mg 11/02/19 20:46 Ativan IV Q6HR PRN Anxiety Naloxone HCl 0.2 mg 11/02/19 20:46 Narcan IV Q2M PRN Opioid Reversal Ondansetron HCl 4 mg 11/02/19 20:46 11/04/19 05:59 Zofran IVP 4 mg Q8HR PRN Administration Nausea And Vomiting Pantoprazole Sodium 40 mg 11/02/19 21:00 11/04/19 08:52 Protonix IV 40 mg DAILY PIOTR Administration Intake and Output 11/03/19 11/04/19 11/04/19 22:59 06:59 14:59 Output Total 400 Balance -400 Output: Urine 400 Other: Voiding Method Toilet # Voids 2 11/04/19 09:05 11/04/19 09:05 EKG Interpretations (text) Not available Assessment and Plan (1) Tricuspid atresia Current Visit: Yes Status: Acute Code(s): Q22.4 - CONGENITAL TRICUSPID STENOSIS SNOMED Code(s): 83078782 (2) Nausea & vomiting Current Visit: Yes Status: Acute Code(s): R11.2 - NAUSEA WITH VOMITING, UNSPECIFIED SNOMED Code(s): 95773851 (3) Abdominal pain Current Visit: No Status: Acute Code(s): R10.9 - UNSPECIFIED ABDOMINAL PAIN SNOMED Code(s): 66162109 (4) Congenital heart anomaly Current Visit: No Status: Acute Code(s): Q24.9 - CONGENITAL MALFORMATION OF HEART, UNSPECIFIED SNOMED Code(s): 45562880 (5) SVT (supraventricular tachycardia) Current Visit: No Status: Acute Code(s): I47.1 - SUPRAVENTRICULAR TACHYCARDIA SNOMED Code(s): 9645141 Plan: Patient seemed to be stable from Cardec standpoint. We'll see her on when necessary basis
[2019-11-04] MEDS ORDERED: guaiFENesin-Coden 100-10MG/5ML 10 ML CUP PO PRN (16:22)
--- NOTE | 2019-11-04 16:27 | P.PN ---
Subjective Progress Note Date: 11/04/19 Asuncion Rizzo is a 39-year-old female who presented to [facility] emergency room with vague symptoms of headache and cough and nausea she was evaluated in the emergency room all her testing were negative she was discharged home however she returned to the emergency room several hours later with worsening of her symptoms with severe headache and vomiting she was reevaluated computed tomography scan of the brain was within normal limits all her blood tests were within normal limits patient was admitted to the hospital for further evaluation. Patient was seen and examined on the medical floor she is alert and oriented in no apparent distress, she is complaining of headache, she is complaining of cough complaining of nausea and vomiting, otherwise she denies any complaints there is no fever or chills no dizziness no chest pain no abdominal pain, she has some diarrhea, there is no burning was urination no frequency or urgency and no hematuria. Patient has a known history of congenital heart disease she also has history of liver cirrhosis. On 11/04/2019 patient was seen and examined on the medical floor she is alert and oriented 3 in no apparent distress she is still complaining of headache, she is complaining of nausea and occasional vomiting and complaining of cough o therwise she denies any complaints there is no fever or chills no dizziness no chest pain no shortness of breath no abdominal pain no diarrhea no burning with urination no frequency or urgency and no hematuria Objective - Vital Signs Vital signs: Vital Signs Temp 98.8 F 11/04/19 15:58 Pulse 81 11/04/19 15:58 Resp 16 11/04/19 15:58 BP 102/69 11/04/19 15:58 Pulse Ox 97 11/04/19 15:58 Intake & Output 11/03/19 11/04/19 11/04/19 18:59 06:59 18:59 Intake Total 640 Output Total 400 20 Balance 640 -400 -20 Intake: IV 640 Sodium Chloride 0.9% 1, 640 000 ml @ 80 mls/hr IV . [id number] [facility] Rx#:[id number] Output: Urine 400 Emesis 20 Other: Voiding Method Toilet # Voids 1 2 - Exam In general patient is alert and oriented in no apparent distress HEENT head normocephalic and atraumatic Neck is supple no JVD no goiter no lymphadenopathy Chest exam reveals a few scattered rhonchi no wheezing Cardiac exam reveals regular heart sounds no gallops no murmurs Abdomen is soft nontender no organomegaly was normal bowel sounds Extremity exam reveals no edema - Labs CBC & Chem 7: 11/04/19 09:05 11/04/19 09:05 Labs: Abnormal Lab Results - Last 24 Hours (Table) 11/04/19 11/04/19 Range/Units 09:05 09:05 Hct 46.5 H (34.0-46.0) % Plt Count 106 L (150-450) k/uL Lymphocytes # 0.6 L (1.0-4.8) k/uL Sodium 134 L (137-145) mmol/L Carbon Dioxide 19 L (22-30) mmol/L Total Bilirubin 1.8 H (0.2-1.3) mg/dL Assessment and Plan Plan: #1 headaches symptoms of headache, nausea vomiting and generalized malaise, all testing including Covid 19 has been negative so far. #2 underlying history of congenital heart disease #3 underlying history of liver cirrhosis abdomen ultrasound revealed evidence of splenomegaly otherwise no significant abnormality echocardiogram results are still pending consult from gastroenterology and cardiology reviewed Will treat symptomatically until further information
[2019-11-04] MEDS: SODIUM CHLORIDE 0.9% 1,000 ML IV SCH (17:41)
[2019-11-05] MEDS: SODIUM CHLORIDE 0.9% 1,000 ML IV SCH ×2 (01:41→15:42)
[2019-11-05] MEDS: PANTOPRAZOLE 40 MG/10 ML VIAL IV SCH (09:07)
--- NOTE | 2019-11-05 11:49 | PN ---
PROGRESS NOTE DATE OF SERVICE: 11/05/2019 The patient is a 39-year-old white female with history of congenital heart disease. Has history of chronic liver disease with cirrhosis of the liver, follows at [facility]. Was admitted to the hospital with headache, nausea, vomiting, and diarrhea. She is feeling much better. Nausea has improved. She is on clear liquid diet, tolerating well, requesting for diet to be advanced. She still had mild headache this morning. She reports no fever, chills, night sweats. PHYSICAL EXAMINATION: Appears comfortable, no apparent distress. VITAL SIGNS: Stable. Blood pressure is 103/70, pulse rate 81, temperature 98.4. HEENT examination unremarkable. Conjunctivae pink. Sclerae anicteric. Oral cavity no lesions. NECK: No JVD or lymph node enlargement. CHEST: Clear to auscultation. HEART: Regular rate and rhythm. ABDOMEN: Soft. Bowel sounds are positive. No organomegaly. EXTREMITIES: No pedal edema. SKIN: No rashes. NEUROLOGIC: Alert and oriented x3. No focal deficits. LABS: From today, WBC 6.7, hemoglobin 14.8, platelets 106. Rest of the labs are within normal limits. IMPRESSION: 1. Acute onset of nausea, vomiting probably related to severe headaches which have now subsided. The symptoms have improved. She is on a clear liquid diet, tolerating well. 2. History of congenital heart disease. Cardiology following the patient closely. 3. Chronic liver disease with cirrhosis and ascites in the past, which is well controlled currently. RECOMMENDATIONS: 1. Since the nausea and vomiting have significantly improved, we will advance the diet as tolerated. 2. Continue with Protonix 40 mg daily. 3. Continue pain medications for the headaches. 4. No plans for any endoscopy intervention at the present time. Thank you for this consultation. We will follow with you closely. MMODL / IJN: [id number] /
--- NOTE | 2019-11-05 14:12 | P.PN ---
Subjective Progress Note Date: 11/05/19 Asuncion Rizzo is a 39-year-old female who presented to [facility] emergency room with vague symptoms of headache and cough and nausea she was evaluated in the emergency room all her testing were negative she was discharged home however she returned to the emergency room several hours later with worsening of her symptoms with severe headache and vomiting she was reevaluated computed tomography scan of the brain was within normal limits all her blood tests were within normal limits patient was admitted to the hospital for further evaluation. Patient was seen and examined on the medical floor she is alert and oriented in no apparent distress, she is complaining of headache, she is complaining of cough complaining of nausea and vomiting, otherwise she denies any complaints there is no fever or chills no dizziness no chest pain no abdominal pain, she has some diarrhea, there is no burning was urination no frequency or urgency and no hematuria. Patient has a known history of congenital heart disease she also has history of liver cirrhosis. On 11/04/2019 patient was seen and examined on the medical floor she is alert and oriented 3 in no apparent distress she is still complaining of headache, she is complaining of nausea and occasional vomiting and complaining of cough o therwise she denies any complaints there is no fever or chills no dizziness no chest pain no shortness of breath no abdominal pain no diarrhea no burning with urination no frequency or urgency and no hematuria On 11/05/2019 patient was seen and examined on the medical floor she is alert and oriented 3 she is still complaining of headache and complaining of nausea she has been improving gradually otherwise she denies any complaints there is no fever or chills no headache or dizziness no chest pain no shortness of breath no cough no vomiting no abdominal pain no diarrhea and no urinary symptoms. Objective - Vital Signs Vital signs: Vital Signs Temp 98.4 F 11/05/19 09:15 Pulse 81 11/05/19 09:15 Resp 16 11/05/19 09:15 BP 103/70 11/05/19 09:15 Pulse Ox 94 L 11/05/19 09:15 Intake & Output 11/04/19 11/05/19 11/05/19 18:59 06:59 18:59 Intake Total 700 100 Output Total 20 Balance -20 700 100 Intake: Intake, IV Titration 300 Amount Sodium Chloride 0.9% 1, 300 000 ml @ 80 mls/hr IV . [id number] PIOTR Rx#:[id number] Oral 400 100 Output: Emesis 20 Other: # Voids 2 2 - Exam In general patient is alert and oriented in no apparent distress HEENT head normocephalic and atraumatic Neck is supple no JVD no goiter no lymphadenopathy Chest exam reveals a few scattered rhonchi no wheezing Cardiac exam reveals regular heart sounds no gallops no murmurs Abdomen is soft nontender no organomegaly was normal bowel sounds Extremity exam reveals no edema - Labs CBC & Chem 7: 11/04/19 09:05 11/04/19 09:05 Assessment and Plan Plan: #1 headaches symptoms of headache, nausea vomiting and generalized malaise, all testing including Covid 19 has been negative so far. #2 underlying history of congenital heart disease #3 underlying history of liver cirrhosis abdomen ultrasound revealed evidence of splenomegaly otherwise no significant abnormality echocardiogram results are still pending consult from gastroenterology and cardiology reviewed Will treat symptomatically until further information Plan for discharge to home tomorrow if stable
[2019-11-05] MEDS: ENOXAPARIN 40 MG/0.4 ML SYRINGE SQ SCH (15:42)
[2019-11-06] MEDS: IBUPROFEN 400 MG TAB PO PRN ×2 (02:48→08:38)
[2019-11-06] MEDS: SODIUM CHLORIDE 0.9% 1,000 ML IV SCH ×2 (02:49→15:30)
[2019-11-06 07:59] LABS: Basophils % (A) 1 %; Eosinophils # (A) 0.1 k/uL (0-0.7); Eosinophils % (A) 2 %; HCT 43.5 % (34.0-46.0); HGB 13.8 gm/dL (11.4-16.0); Lymphocytes # (A) 0.5 k/uL (1.0-4.8); Lymphocytes % (A) 10 %; MCHC 31.7 g/dL (31.0-37.0); MCV 88.4 fL (80.0-100.0); Monocytes # (A) 0.5 k/uL (0-1.0); Monocytes % (A) 9 %; Neutrophils # (A) 3.9 k/uL (1.3-7.7); Neutrophils % (A) 76 %; Platelet Count 121 k/uL (150-450); RBC 4.92 m/uL (3.80-5.40); RDW 14.2 % (11.5-15.5); WBC 5.2 k/uL (3.8-10.6)
[2019-11-06 08:05] LABS: ALT 13 U/L (4-34); AST 20 U/L (14-36); African American GFR (CKD) >90 (>60 ml/min/1.73 sqM); Albumin 3.5 g/dL (3.5-5.0); Alkaline Phosphatase 54 U/L (38-126); Anion Gap 8 mmol/L; Blood Urea Nitrogen 13 mg/dL (7-17); Calcium 8.4 mg/dL (8.4-10.2); Carbon Dioxide 20 mmol/L (22-30); Chloride 106 mmol/L (98-107); Glucose 99 mg/dL (74-99); Non-African American GFR(CKD) >90 (>60 ml/min/1.73 sqM); Potassium 3.9 mmol/L (3.5-5.1); Sodium 134 mmol/L (137-145); Total Bilirubin 1.7 mg/dL (0.2-1.3); Total Protein 6.5 g/dL (6.3-8.2)
[2019-11-06] MEDS: PANTOPRAZOLE 40 MG/10 ML VIAL IV SCH (08:33)
[2019-11-06] MEDS: ENOXAPARIN 40 MG/0.4 ML SYRINGE SQ SCH (08:34)
--- NOTE | 2019-11-06 12:53 | P.PN ---
Subjective Progress Note Date: 11/06/19 Principal diagnosis: Nausea and vomiting, history of chronic liver disease with cirrhosis and ascites Patient is seen lying in bed today reporting that overall she is feeling better. She is been able to tolerate her diet. No further nausea or vomiting. Objective - Vital Signs Vital signs: Vital Signs Temp 98.3 F 11/06/19 07:00 Pulse 71 11/06/19 07:00 Resp 18 11/06/19 07:00 BP 106/72 11/06/19 07:00 Pulse Ox 94 L 11/06/19 07:00 Intake & Output 11/05/19 11/06/19 11/06/19 18:59 06:59 18:59 Intake Total 100 300 Balance 100 300 Intake: Oral 100 300 Other: Voiding Method Toilet # Voids 2 1 - Exam On physical examination, patient appears comfortable in no apparent distress. HEAD: Normocephalic, atraumatic. EYES: No scleral icterus. No conjunctival injection. MOUTH: No lesions, tongue midline. NECK: Trachea midline, no gross abnormalities. ABDOMEN: Soft. Bowel sounds are positive. No organomegaly. No guarding or rigidity. EXTREMITIES: No pedal edema. SKIN: No rashes, no jaundice. NEUROLOGIC: Alert and oriented to person and place. No focal deficits. - Labs CBC & Chem 7: 11/06/19 07:30 11/06/19 07:30 Labs: Abnormal Lab Results - Last 24 Hours (Table) 11/06/19 11/06/19 Range/Units 07:30 07:30 Plt Count 121 L (150-450) k/uL Lymphocytes # 0.5 L (1.0-4.8) k/uL Sodium 134 L (137-145) mmol/L Carbon Dioxide 20 L (22-30) mmol/L Total Bilirubin 1.7 H (0.2-1.3) mg/dL Assessment and Plan (1) Nausea & vomiting Narrative/Plan: 39-year-old female with a history of chronic liver disease for which she follows up at [facility] who presented with acute onset nausea and vomiting with associated headache. Currently symptoms are improved. She is tolerating her diet. Likely related to underlying headache or acute gastroenteritis which is resolved. Current Visit: Yes Status: Acute Code(s): R11.2 - NAUSEA WITH VOMITING, UNSPECIFIED SNOMED Code(s): 47947233 (2) Cirrhosis Current Visit: No Status: Acute Code(s): K74.60 - UNSPECIFIED CIRRHOSIS OF LIVER SNOMED Code(s): 65272703 Plan: Supportive care Continue Protonix daily Okay for diet as tolerated Continue treatment of underlying headaches No plans for endoscopy at this time Follow-up of chronic liver disease as previously scheduled Okay for discharge if otherwise medically stable Thank you for allowing us to participate in the care of the patient
--- NOTE | 2019-11-06 14:33 | P.DS ---
Providers Date of admission: 11/05/19 08:41 Expected date of discharge: 11/06/19 Attending physician: Devaughn Marino Consults: 11/03/19 16:55 Consult Physician Routine Consulting Provider: Anne Marie Nix Consult Reason/Comments: vomiting, history of liver cirrhosis Do you want consulting provider notified?: Yes 11/03/19 16:56 Consult Physician Routine Consulting Provider: Haylee Suarez Consult Reason/Comments: congenital heart disease Do you want consulting provider notified?: Yes Primary care physician: Devaughn [facility] Course: Diagnosis on discharge: #1 headache, nausea vomiting and generalized malaise, all testing including Covid 19 has been negative so far. Possible viral upper respiratory infection. #2 underlying history of congenital heart disease #3 underlying history of liver cirrhosis Hospital course: Asuncion Rizzo is a 39-year-old female who presented to [facility] emergency room with vague symptoms of headache and cough and nausea she was evaluated in the emergency room all her testing were negative she was discharged home however she returned to the emergency room several hours later with worsening of her symptoms with severe headache and vomiting she was reevaluated computed tomography scan of the brain was within normal limits all her blood tests were within normal limits patient was admitted to the hospital for further evaluation. Patient was seen and examined on the medical floor she is alert and oriented in no apparent distress, she is complaining of headache, she is complaining of cough complaining of nausea and vomiting, otherwise she denies any complaints there is no fever or chills no dizziness no chest pain no abdominal pain, she has some diarrhea, there is no burning was urination no frequency or urgency and no hematuria. Patient has a known history of congenital heart disease she also has history of liver cirrhosis. On 11/04/2019 patient was seen and examined on the medical floor she is alert and oriented 3 in no apparent distress she is still complaining of headache, she is complaining of nausea and occasional vomiting and complaining of cough otherwise she denies any complaints there is no fever or chills no dizziness no chest pain no shortness of breath no abdominal pain no diarrhea no burning with urination no frequency or urgency and no hematuria On 11/05/2019 patient was seen and examined on the medical floor she is alert and oriented 3 she is still complaining of headache and complaining of nausea she has been improving gradually otherwise she denies any complaints there is no fever or chills no headache or dizziness no chest pain no shortness of breath no cough no vomiting no abdominal pain no diarrhea and no urinary symptoms. On 11/06/2019 patient was seen and examined on the medical floor she is alert and oriented in no apparent distress headache nausea and vomiting have resolved, cause remains not entirely clear, possible viral gastroenteritis or upper respiratory infection, symptoms have resolved patient can be discharged home today she will follow in our office in 2-3 days, prescriptions for Zofran, proton X, and ibuprofen were given Plan - Discharge Summary New Discharge Prescriptions: New Ibuprofen 600 mg PO Q6H 10 Days #30 tab Ibuprofen [Motrin] 400 mg PO Q4HR PRN tab PRN Reason: Menstrual Cramps Pantoprazole Sodium [Protonix] 40 mg PO DAILY 30 Days #30 tablet. Ondansetron HCl [Zofran] 4 mg PO Q8H PRN 10 Days #30 tab PRN Reason: Nausea And Vomiting Discharge Medication List Ibuprofen 600 mg PO Q6H 10 Days #30 tab 11/06/19 [Rx] Ibuprofen [Motrin] 400 mg PO Q4HR PRN tab 11/06/19 [Rx] Ondansetron HCl [Zofran] 4 mg PO Q8H PRN 10 Days #30 tab 11/06/19 [Rx] Pantoprazole Sodium [Protonix] 40 mg PO DAILY 30 Days #30 tablet. 11/06/19 [Rx] Follow up Appointment(s)/Referral(s): Devaughn Marino MD [Primary Care Provider] - 1-2 days (office not answering . Please call to make appointment) Patient Instructions/Handouts: Acute Nausea and Vomiting (DC)
[2019-11-06 14:44] VITALS: BP 95/62; PULSE 70; RESP 17; TEMP 98.2
--- NOTE | 2019-11-08 08:47 | ECHOF ---
Referral Reason:congenital heart disease MEASUREMENTS -------- HEIGHT: 162.6 cm WEIGHT: 54.4 kg BP: 105/71 IVSd: 2.4 cm (0.6 - 1.1) LVIDd: 2.6 cm (3.9 - 5.3) LVPWd: 2.0 cm (0.6 - 1.1) IVSs: 2.5 cm LVIDs: 1.9 cm LVPWs: 2.4 cm LAESV Index (A-L): 26.49 ml/m Ao Diam: 3.5 cm (2.0 - 3.7) AV Cusp: 1.6 cm (1.5 - 2.6) MV EXCURSION: 14.230 mm (> 18.000) MV EF SLOPE: 59 mm/s (70 - 150) EPSS: 0.5 cm MV E Kit: 0.48 m/s MV DecT: 152 ms MV A Kit: 0.62 m/s MV E/A Ratio: 0.78 AR PHT: 497 ms FINDINGS -------- Sinus rhythm. Patient had the Fontan Procedure. The left ventricular size is normal. There is severe concentric left ventricular hypertrophy. Ove rall left ventricular systolic function is low-normal with, an EF between 50 - 55 %. There is parad oxical/dysynergic septal motion consistent with post-operative status. The RV was not well visualized. Normal LA size by volume 22+/-6 ml/m2. The right atrium is mildly enlarged. Interatrial and interventricular septum intact. The aortic valve was not well visualized. There is [id number] aortic regurgitation. There i s no evidence of aortic stenosis. Mild mitral regurgitation is present. The tricuspid valve was not well visualized. Unable to estimate RVSP due to inadequate TR jet spect ral doppler profile. There is no pulmonic regurgitation present. The aortic root is mildy dilated. Normal inferior vena cava with normal inspiratory collapse consistent with estimated right atrial pre ssure of 5 mmHg. There is no pericardial effusion. CONCLUSIONS -------- 1. Sinus rhythm. 2. Patient had the Fontan Procedure. 3. The left ventricular size is normal. 4. There is severe concentric left ventricular hypertrophy. 5. Overall left ventricular systolic function is low-normal with, an EF between 50 - 55 %. 6. There is paradoxical/dysynergic septal motion consistent with post-operative status. 7. The RV was not well visualized. 8. Normal LA size by volume 22+/-6 ml/m2. 9. The right atrium is mildly enlarged. 10. Interatrial and interventricular septum intact. 11. The aortic valve was not well visualized. 12. There is [id number] aortic regurgitation. 13. There is no evidence of aortic stenosis. 14. Mild mitral regurgitation is present. 15. The tricuspid valve was not well visualized. 16. Unable to estimate RVSP due to inadequate TR jet spectral doppler profile. 17. There is no pulmonic regurgitation present. 18. The aortic root is mildy dilated. 19. Normal inferior vena cava with normal inspiratory collapse consistent with estimated right atrial pressure of 5 mmHg. 20. There is no pericardial effusion. EDITOR NEWSPAPER: Mary Alice Vu RDCS
== END 2019-11-06 16:23 | disposition home or self-care (01) | DRG 391 ==
LOC: EC 16:23 → 4SSUR 20:46 → OBSVTOIN 11-05 08:41
PROVIDERS: ADMIT Internal Medicine; ATTEND Internal Medicine
DX: A08.4 Viral intestinal infection, unspecified (principal); Q22.4 Congenital tricuspid stenosis; I47.1 Supraventricular tachycardia; J06.9 Acute upper respiratory infection, unspecified; E03.9 Hypothyroidism, unspecified; K74.60 Unspecified cirrhosis of liver; J45.909 Unspecified asthma, uncomplicated; Z79.890 Hormone replacement therapy; Z20.828 Contact with and (suspected) exposure to other viral communicable diseases; Z80.3 Family history of malignant neoplasm of breast; Z82.49 Family history of ischemic heart disease and other diseases of the circulatory system; Z82.5 Family history of asthma and other chronic lower respiratory diseases; Z87.74 Personal history of (corrected) congenital malformations of heart and circulatory system; Z95.1 Presence of aortocoronary bypass graft; Z88.8 Allergy status to other drugs, medicaments and biological substances; Z91.010 Allergy to peanuts
CPT/HCPCS: 36415; 70450; 71045; 76700; 80053; 80306; 80320; 80329; 81003; 81025; 82140; 84484; 85025; 87635; 93306; 96361; 96372; 96374; 96375; 99285

== ENCOUNTER 2019-12-29 23:52 | Emergency (ER) | payer OTHER ==
[2019-12-30] MEDS ORDERED: CEPHALEXIN 500 MG CAP PO STA (00:34)
[2019-12-30] MEDS ORDERED: SULFAMETHOX-TMP 800-160MG 1 EACH TAB PO STA (00:34)
--- NOTE | 2019-12-30 00:39 | ED ---
Skin/Abscess/FB HPI - General Chief complaint: Skin/Abscess/Foreign Body Stated complaint: Rash Time Seen by Provider: 12/30/19 00:05 Source: patient Mode of arrival: ambulatory Limitations: no limitations - History of Present Illness Initial comments: Patient is a 39-year-old female presenting to the emergency Department with complaints of a rash on her left lower leg as well is starting on her right lower leg 2 days. Patient states she thought it was a mild sunburn at first but then noticed tonight it was getting worse. He states the area is itchy, very mildly painful. She denies any fever, chills, nausea, vomiting. She's been eating and drinking as normal. She denies any new lotions or bath wash. She states she did go swimming in a [place] a few days ago. She states she does not think she's been around any poison IV. She has no further complaints at this time. Upon arrival to the ER, her vitals are stable. - Related Data Previous Rx's Medication Instructions Recorded Ibuprofen 600 mg PO Q6H 10 Days #30 tab 11/06/19 Ibuprofen [Motrin] 400 mg PO Q4HR PRN tab 11/06/19 Ondansetron HCl [Zofran] 4 mg PO Q8H PRN 10 Days #30 tab 11/06/19 Pantoprazole Sodium [Protonix] 40 mg PO DAILY 30 Days #30 11/06/19 tablet. Cephalexin [Keflex] 500 mg PO Q6HR 7 Days #28 cap 12/30/19 Sulfamethox-Tmp 800-160Mg [Bactrim 1 each PO Q12HR 7 Days #14 tab 12/30/19 Ds] Allergies Allergy/AdvReac Type Severity Reaction Status Date / Time warfarin sodium Allergy Anaphylaxis Verified 12/30/19 00:00 [From Coumadin] peas AdvReac Diarrhea Verified 12/30/19 00:00 Review of Systems ROS Statement: Those systems with pertinent positive or pertinent negative responses have been documented in the HPI. ROS Other: All systems not noted in ROS Statement are negative. Past Medical History Past Medical History: Atrial Flutter, Asthma, Liver Disease, Thyroid Disorder Additional Past Medical History / Comment(s): heart surgery r/t valves as an , History of Any Multi-Drug Resistant Organisms: None Reported Past Surgical History: Coronary Bypass/CABG Additional Past Surgical History / Comment(s): D&C in November 2013, paracentesis, patient states her liver "went bad" after a miscarriage in 2014, Fontan 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 7, Past Anesthesia/Blood Transfusion Reactions: No Reported Reaction Past Psychological History: No Psychological Hx Reported Smoking Status: Never smoker Past Alcohol Use History: None Reported Past Drug Use History: None Reported - Past Family History Mother Family Medical History: Asthma, Cancer, Hyperlipidemia, Hypertension Additional Family Medical History / Comment(s): Mother had breast CA at age 52 Brother(s) Family Medical History: Asthma Father Family Medical History: Asthma General Exam - General Exam Comments Initial Comments: GENERAL: Well-appearing, well-nourished and in no acute distress. HEAD: Atraumatic, normocephalic. EYES: Pupils equal round and reactive to light, extraocular movements intact, sclera anicteric, conjunctiva are normal. ENT: Nares patent, oropharynx clear without exudates. Moist mucous membranes. NECK: Normal range of motion, supple without lymphadenopathy or JVD. LUNGS: Breath sounds clear to auscultation bilaterally and equal. No wheezes rales or rhonchi. HEART: Regular rate and rhythm without murmurs, rubs or gallops. ABDOMEN: Soft, nontender, normoactive bowel sounds. No guarding, no rebound. No masses appreciated. : Deferred EXTREMITIES: Normal range of motion, no pitting or edema. No clubbing or cyanosis. NEUROLOGICAL: Normal speech, normal gait. PSYCH: Normal mood, normal affect. SKIN: Warm, Dry, normal turgor,. Patient has a small area of erythema approximately 3 cm x 3 cm on the inside part of her left lower leg as well as a very mild area on the right lower leg. This does not appear to be a poison andrea, this appears to be slightly cellulitic or possibly a contact dermatitis. Limitations: no limitations Course Vital Signs 12/29/19 12/30/19 23:55 01:08 Temperature 98.2 F 98.0 F Pulse Rate 87 82 Respiratory 18 16 Rate Blood Pressure 112/78 118/77 O2 Sat by Pulse 96 98 Oximetry Medical Decision Making - Medical Decision Making Patient is a 39-year-old female here with a rash in her bilateral lower legs. It appears to be slightly cellulitic and/or possible contact dermatitis. Patient will be started on Keflex and Bactrim for possible cellulitis. First dose given in the ER. She will follow up with her PCP on Wednesday. Strict return parameters were discussed with the patient and she verbalized understanding. She is stable for discharge. Disposition Clinical Impression: Cellulitis of left lower leg Disposition: HOME SELF-CARE Condition: Stable Instructions (If sedation given, give patient instructions): Cellulitis (ED) Additional Instructions: Please return to the Emergency Department if symptoms worsen or any other concerns. Take antibiotics as prescribed. Follow-up with PCP on Wednesday or Wednesday as discussed. Prescriptions: Sulfamethox-Tmp 800-160Mg [Bactrim Ds] 1 each PO Q12HR 7 Days #14 tab Cephalexin [Keflex] 500 mg PO Q6HR 7 Days #28 cap Is patient prescribed a controlled substance at d/c from ED?: No Referrals: Devaughn Marino MD [Primary Care Provider] - 1-2 days
[2019-12-30 01:09] VITALS: BP 118/77; PULSE 82; RESP 16; TEMP 98
== END 2019-12-30 01:07 | disposition home or self-care (01) ==
LOC: EC 23:52
DX: L03.116 Cellulitis of left lower limb (principal); Z91.010 Allergy to peanuts; Z88.8 Allergy status to other drugs, medicaments and biological substances; Z95.1 Presence of aortocoronary bypass graft
CPT/HCPCS: 99282

== ENCOUNTER 2020-01-25 11:07 | Emergency (ER) | payer OTHER ==
[2020-01-25 11:48] VITALS: RESP 18; TEMP 97.9
--- NOTE | 2020-01-25 11:55 | ED ---
General Adult HPI - General Chief complaint: Nausea/Vomiting/Diarrhea Stated complaint: abd pain Time Seen by Provider: 01/25/20 11:55 Source: patient Mode of arrival: ambulatory Limitations: no limitations - History of Present Illness Initial comments: Patient is a 39-year-old female, presenting to the emergency department with a chief complaint of concern for . Patient states 4 days ago she was walking on the street and she vomited so she was concerned for . Patient does report unprotected sexual intercourse. Patient states this also occurred 2 days ago as well while she was walking on the exact same street. Patient does report increased frequency but denies any discharge or vaginal bleeding. Denies any foul small. Patient denies any concern for STDs. Patient denies any night sweats or chills. She denies any abdominal pain, back pain, chest pain or shortness of breath.. Patient denies using any tests at home due to financial reasons. - Related Data Home Medications Medication Instructions Recorded Confirmed No Known Home Medications 01/25/20 01/25/20 Allergies Allergy/AdvReac Type Severity Reaction Status Date / Time warfarin sodium Allergy Anaphylaxis Verified 01/25/20 13:01 [From Coumadin] peas AdvReac Diarrhea Verified 01/25/20 13:01 Review of Systems ROS Statement: Those systems with pertinent positive or pertinent negative responses have been documented in the HPI. ROS Other: All systems not noted in ROS Statement are negative. 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 7, Past Anesthesia/Blood Transfusion Reactions: No Reported Reaction Past Psychological History: No Psychological Hx Reported Smoking Status: Never smoker Past Alcohol Use History: None Reported Past Drug Use History: None Reported - Past Family History Mother Family Medical History: Asthma, Cancer, Hyperlipidemia, Hypertension Additional Family Medical History / Comment(s): Mother had breast CA at age 52 Brother(s) Family Medical History: Asthma Father Family Medical History: Asthma General Exam Limitations: no limitations General appearance: alert, in no apparent distress Head exam: Present: atraumatic, normocephalic, normal inspection Eye exam: Present: normal appearance, PERRL, EOMI Pupils: Present: normal accommodation ENT exam: Present: normal exam, normal oropharynx, mucous membranes moist, TM's normal bilaterally, normal external ear exam Neck exam: Present: normal inspection, full ROM. Absent: tenderness Respiratory exam: Present: normal lung sounds bilaterally. Absent: respiratory distress, wheezes Cardiovascular Exam: Present: regular rate, normal rhythm, normal heart sounds GI/Abdominal exam: Present: soft, normal bowel sounds. Absent: distended, tenderness, guarding, rebound Extremities exam: Present: normal inspection, full ROM. Absent: tenderness Back exam: Present: normal inspection, full ROM. Absent: tenderness Neurological exam: Present: alert, oriented X3, normal gait Psychiatric exam: Present: normal affect, normal mood Skin exam: Present: warm, dry, intact, normal color Course Vital Signs 01/25/20 01/25/20 01/25/20 11:27 11:31 13:06 Temperature 97.9 F Pulse Rate 69 65 Respiratory 18 18 18 Rate Blood Pressure 119/74 101/73 O2 Sat by Pulse 95 97 Oximetry Medical Decision Making - Medical Decision Making Patient is a 39-year-old female presenting to the emergency department with chief complaint of . Patient is concerned for but she did not take parents intestinal for financial reasons. She did have one episode of nausea and vomiting while she was walking on the street. Patient is requesting test. test negative. UA is negative for urinary tract infection. Urine culture pending. Return parameters thoroughly discussed patient is understanding and agreeable. She is to follow with primary care. Case discussed with physician. - Lab Data Lab Results 01/25/20 01/25/20 Range/Units 12:14 12:14 Urine Color Yellow Urine Appearance Cloudy H (Clear) Urine pH 5.5 (5.0-8.0) Ur Specific [place] 1.025 (1.001-1.035) Urine Protein 1+ H (Negative) Urine Glucose (UA) Negative (Negative) Urine Ketones Negative (Negative) Urine Blood Trace H (Negative) Urine Nitrite Negative (Negative) Urine Bilirubin Negative (Negative) Urine Urobilinogen <2.0 (<2.0) mg/dL Ur Leukocyte Esterase Negative (Negative) Urine RBC 1 (0-5) /hpf Urine WBC <1 (0-5) /hpf Ur Squamous Epith Cells 8 H (0-4) /hpf Urine Bacteria Rare H (None) /hpf Hyaline Casts 1 (0-2) /lpf Urine Mucus Occasional H (None) /hpf Urine HCG, Qual Not Detected (Not Detectd) Disposition Clinical Impression: test negative Disposition: HOME SELF-CARE Condition: Stable Instructions (If sedation given, give patient instructions): (ED) Additional Instructions: Follow up with family medicine doctor. Return to emergency department if symptoms worsen. Is patient prescribed a controlled substance at d/c from ED?: No Referrals: Devaughn Marino MD [Primary Care Provider] - 1-2 days Time of Disposition: 12:56
[2020-01-25 12:51] LABS: Appearance,Urine Cloudy (Clear); Bacteria,Urine Rare /hpf; Bilirubin,Urine Negative (Negative); Blood,Urine Trace (Negative); Color,Urine Yellow; Glucose,Urine (UA) Negative (Negative); Hyaline Casts,Urine 1 /lpf (0-2); Ketones,Urine Negative (Negative); Leukocyte Esterase,Urine Negative (Negative); Mucus,Urine Occasional /hpf; Nitrite,Urine Negative (Negative); PH, Urine 5.5 (5.0-8.0); Protein,Urine 1+ (Negative); RBC,Urine 1 /hpf (0-5); Specific Gravity,Urine 1.025 (1.001-1.035); Squamous Epithelial Cell,Urine 8 /hpf (0-4); Urobilinogen,Urine <2.0 mg/dL (<2.0); WBC,Urine <1 /hpf (0-5)
[2020-01-25 13:06] VITALS: BP 101/73; PULSE 65
== END 2020-01-25 13:06 | disposition home or self-care (01) ==
LOC: EC 11:07
DX: Z32.02 Encounter for pregnancy test, result negative (principal); Z88.8 Allergy status to other drugs, medicaments and biological substances; Z91.010 Allergy to peanuts; Z95.1 Presence of aortocoronary bypass graft
CPT/HCPCS: 81001; 81025; 99284

== ENCOUNTER 2020-01-26 11:44 | Emergency (ER) | payer OTHER ==
[2020-01-26 12:00] VITALS: BP 104/73; PULSE 83; RESP 18; TEMP 98.1
[2020-01-26] MEDS ORDERED: SODIUM CHLORIDE 0.9% 1,000 ML IV STA ×2 (12:40)
[2020-01-26] MEDS ORDERED: ONDANSETRON 4 MG/2 ML VIAL IVP STA (12:41)
--- NOTE | 2020-01-26 12:43 | ED ---
Abdominal Pain HPI - General Chief Complaint: Abdominal Pain Stated Complaint: recheck - vomiting, abd pain Time Seen by Provider: 01/26/20 12:13 Source: patient, RN notes reviewed, old records reviewed Mode of arrival: ambulatory Limitations: no limitations - History of Present Illness Initial Comments: Patient is a 39-year-old female who presents emergency of nausea and vomiting over 10 times for the past 2 days. Patient has had no recent fevers or chills. She does have history of chronic ascites in the [facility]. She states that she had no change in her studies and cannot remember the last time she's had paracentesis. Patient states that she's had no significant change in her stools. She does report urinating more frequently. - Related Data Previous Rx's Medication Instructions Recorded Famotidine [Pepcid] 20 mg PO BID #12 tablet 01/26/20 Ondansetron Odt [Zofran Odt] 4 mg PO Q8HR PRN #12 tab 01/26/20 Allergies Allergy/AdvReac Type Severity Reaction Status Date / Time warfarin sodium Allergy Anaphylaxis Verified 01/26/20 12:00 [From Coumadin] peas AdvReac Diarrhea Verified 01/26/20 12:00 Review of Systems ROS Statement: Those systems with pertinent positive or pertinent negative responses have been documented in the HPI. ROS Other: All systems not noted in ROS Statement are negative. 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 7, Past Anesthesia/Blood Transfusion Reactions: No Reported Reaction Past Psychological History: No Psychological Hx Reported Smoking Status: Never smoker Past Alcohol Use History: None Reported Past Drug Use History: None Reported - Past Family History Mother Family Medical History: Asthma, Cancer, Hyperlipidemia, Hypertension Additional Family Medical History / Comment(s): Mother had breast CA at age 52 Brother(s) Family Medical History: Asthma Father Family Medical History: Asthma General Exam - General Exam Comments Initial Comments: 39 year old female, no acute distress. Limitations: no limitations General appearance: alert, in no apparent distress Head exam: Present: atraumatic, normocephalic, normal inspection Eye exam: Present: normal appearance, PERRL, EOMI. Absent: scleral icterus, conjunctival injection, periorbital swelling ENT exam: Present: normal exam, mucous membranes moist Neck exam: Present: normal inspection. Absent: tenderness, meningismus, lymphadenopathy Respiratory exam: Present: normal lung sounds bilaterally. Absent: respiratory distress, wheezes, rales, rhonchi, stridor Cardiovascular Exam: Present: regular rate, normal rhythm, normal heart sounds. Absent: systolic murmur, diastolic murmur, rubs, gallop, clicks GI/Abdominal exam: Present: soft, normal bowel sounds. Absent: distended, tenderness, guarding, rebound, rigid Extremities exam: Present: normal inspection, full ROM, normal capillary refill. Absent: tenderness, pedal edema, joint swelling, calf tenderness Back exam: Present: normal inspection Neurological exam: Present: alert, oriented X3, CN II-XII intact Psychiatric exam: Present: normal affect, normal mood Skin exam: Present: warm, dry, intact, normal color. Absent: rash Course Vital Signs 01/26/20 11:57 Temperature 98.1 F Pulse Rate 83 Respiratory 18 Rate Blood Pressure 104/73 O2 Sat by Pulse 97 Oximetry Medical Decision Making - Medical Decision Making 39 year old female presents today for concern for nausea and vomiting today. Patient given IV fluids. She has known history of liver disease and ascites. She reports no change in this. Vitals are stable, labs reviewed and unremarkable. Discussed pt needs to follow up with PCP and discharge with [facility]. - Lab Data Result diagrams: 01/26/20 13:13 01/26/20 13:13 Lab Results 01/26/20 01/26/20 01/26/20 Range/Units 13:13 13:13 13:13 WBC 4.3 (3.8-10.6) k/uL RBC 5.04 (3.80-5.40) m/uL Hgb 13.8 (11.4-16.0) gm/dL Hct 43.4 (34.0-46.0) % MCV 86.1 (80.0-100.0) fL MCH 27.5 (25.0-35.0) pg MCHC 31.9 (31.0-37.0) g/dL RDW 13.7 (11.5-15.5) % Plt Count 111 L (150-450) k/uL Neutrophils % 76 % Lymphocytes % 11 % Monocytes % 8 % Eosinophils % 3 % Basophils % 1 % Neutrophils # 3.3 (1.3-7.7) k/uL Lymphocytes # 0.5 L (1.0-4.8) k/uL Monocytes # 0.3 (0-1.0) k/uL Eosinophils # 0.2 (0-0.7) k/uL Basophils # 0.0 (0-0.2) k/uL PT 12.1 H (9.0-12.0) sec INR 1.2 H (<1.2) APTT 22.3 (22.0-30.0) sec Sodium (137-145) mmol/L Potassium (3.5-5.1) mmol/L Chloride (98-107) mmol/L Carbon Dioxide (22-30) mmol/L Anion Gap mmol/L BUN (7-17) mg/dL Creatinine (0.52-1.04) mg/dL Est GFR (CKD-EPI)AfAm (>60 ml/min/1.73 sqM) Est GFR (CKD-EPI)NonAf (>60 ml/min/1.73 sqM) Glucose (74-99) mg/dL Calcium (8.4-10.2) mg/dL Total Bilirubin (0.2-1.3) mg/dL AST (14-36) U/L ALT (4-34) U/L Alkaline Phosphatase (38-126) U/L Total Protein (6.3-8.2) g/dL Albumin (3.5-5.0) g/dL Amylase (30-110) U/L Lipase (23-300) U/L Urine Color Yellow Urine Appearance Clear (Clear) Urine pH 5.5 (5.0-8.0) Ur Specific [place] 1.023 (1.001-1.035) Urine Protein 1+ H (Negative) Urine Glucose (UA) Negative (Negative) Urine Ketones 2+ H (Negative) Urine Blood Trace H (Negative) Urine Nitrite Negative (Negative) Urine Bilirubin Negative (Negative) Urine Urobilinogen 2.0 (<2.0) mg/dL Ur Leukocyte Esterase Negative (Negative) Urine RBC 1 (0-5) /hpf Urine WBC 1 (0-5) /hpf Ur Squamous Epith Cells 8 H (0-4) /hpf Urine Mucus Few H (None) /hpf 01/26/20 Range/Units 13:13 WBC (3.8-10.6) k/uL RBC (3.80-5.40) m/uL Hgb (11.4-16.0) gm/dL Hct (34.0-46.0) % MCV (80.0-100.0) fL MCH (25.0-35.0) pg MCHC (31.0-37.0) g/dL RDW (11.5-15.5) % Plt Count (150-450) k/uL Neutrophils % % Lymphocytes % % Monocytes % % Eosinophils % % Basophils % % Neutrophils # (1.3-7.7) k/uL Lymphocytes # (1.0-4.8) k/uL Monocytes # (0-1.0) k/uL Eosinophils # (0-0.7) k/uL Basophils # (0-0.2) k/uL PT (9.0-12.0) sec INR (<1.2) APTT (22.0-30.0) sec Sodium 136 L (137-145) mmol/L Potassium 4.3 (3.5-5.1) mmol/L Chloride 105 (98-107) mmol/L Carbon Dioxide 21 L (22-30) mmol/L Anion Gap 10 mmol/L BUN 15 (7-17) mg/dL Creatinine 0.62 (0.52-1.04) mg/dL Est GFR (CKD-EPI)AfAm >90 (>60 ml/min/1.73 sqM) Est GFR (CKD-EPI)NonAf >90 (>60 ml/min/1.73 sqM) Glucose 77 (74-99) mg/dL Calcium 9.2 (8.4-10.2) mg/dL Total Bilirubin 1.5 H (0.2-1.3) mg/dL AST 27 (14-36) U/L ALT 12 (4-34) U/L Alkaline Phosphatase 61 (38-126) U/L Total Protein 7.3 (6.3-8.2) g/dL Albumin 4.4 (3.5-5.0) g/dL Amylase 46 (30-110) U/L Lipase 55 (23-300) U/L Urine Color Urine Appearance (Clear) Urine pH (5.0-8.0) Ur Specific [place] (1.001-1.035) Urine Protein (Negative) Urine Glucose (UA) (Negative) Urine Ketones (Negative) Urine Blood (Negative) Urine Nitrite (Negative) Urine Bilirubin (Negative) Urine Urobilinogen (<2.0) mg/dL Ur Leukocyte Esterase (Negative) Urine RBC (0-5) /hpf Urine WBC (0-5) /hpf Ur Squamous Epith Cells (0-4) /hpf Urine Mucus (None) /hpf 01/26/20 14:17 EKG shows sinus rhythm with first-degree AV block. Minimal voltage criteria for LVH. ST anterior mandible may consider lateral ischemia. Abnormal EKG. Ventricular rate of 61 beats were minute. Intervals 234 ms. She hoahaoism is 90 ms. QT QTc is 4:30/440 ms. Disposition Clinical Impression: Nausea & vomiting Disposition: HOME SELF-CARE Condition: Good Instructions (If sedation given, give patient instructions): Acute Nausea and Vomiting (ED) Additional Instructions: Please use medication as discussed. Please follow up with family doctor if symptoms have not improved over the next two days. Please return to the emergency room if your symptoms increase or worsen or for any other concerns. Prescriptions: Famotidine [Pepcid] 20 mg PO BID #12 tablet Ondansetron Odt [Zofran Odt] 4 mg PO Q8HR PRN #12 tab PRN Reason: Nausea Is patient prescribed a controlled substance at d/c from ED?: No Referrals: Devaughn Marino MD [Primary Care Provider] - 1-2 days Time of Disposition: 14:24
[2020-01-26 13:23] LABS: Basophils % (A) 1 %; Eosinophils # (A) 0.2 k/uL (0-0.7); Eosinophils % (A) 3 %; HCT 43.4 % (34.0-46.0); HGB 13.8 gm/dL (11.4-16.0); Lymphocytes # (A) 0.5 k/uL (1.0-4.8); Lymphocytes % (A) 11 %; MCH 27.5 pg (25.0-35.0); MCHC 31.9 g/dL (31.0-37.0); MCV 86.1 fL (80.0-100.0); Mean Platelet Volume 9.2; Monocytes # (A) 0.3 k/uL (0-1.0); Monocytes % (A) 8 %; Neutrophils # (A) 3.3 k/uL (1.3-7.7); Neutrophils % (A) 76 %; Platelet Count 111 k/uL (150-450); RBC 5.04 m/uL (3.80-5.40); RDW 13.7 % (11.5-15.5); WBC 4.3 k/uL (3.8-10.6)
[2020-01-26 13:27] LABS: Appearance,Urine Clear (Clear); Bilirubin,Urine Negative (Negative); Blood,Urine Trace (Negative); Color,Urine Yellow; Glucose,Urine (UA) Negative (Negative); Ketones,Urine 2+ (Negative); Leukocyte Esterase,Urine Negative (Negative); Mucus,Urine Few /hpf; Nitrite,Urine Negative (Negative); PH, Urine 5.5 (5.0-8.0); Protein,Urine 1+ (Negative); RBC,Urine 1 /hpf (0-5); Specific Gravity,Urine 1.023 (1.001-1.035); Squamous Epithelial Cell,Urine 8 /hpf (0-4); WBC,Urine 1 /hpf (0-5)
[2020-01-26 13:34] LABS: INR 1.2 (<1.2); Partial Thromboplastin Time 22.3 sec (22.0-30.0); Prothrombin Time 12.1 sec (9.0-12.0)
[2020-01-26 13:38] LABS: ALT 12 U/L (4-34); AST 27 U/L (14-36); African American GFR (CKD) >90 (>60 ml/min/1.73 sqM); Albumin 4.4 g/dL (3.5-5.0); Alkaline Phosphatase 61 U/L (38-126); Amylase 46 U/L (30-110); Anion Gap 10 mmol/L; Blood Urea Nitrogen 15 mg/dL (7-17); Calcium 9.2 mg/dL (8.4-10.2); Carbon Dioxide 21 mmol/L (22-30); Chloride 105 mmol/L (98-107); Glucose 77 mg/dL (74-99); Non-African American GFR(CKD) >90 (>60 ml/min/1.73 sqM); Potassium 4.3 mmol/L (3.5-5.1); Sodium 136 mmol/L (137-145); Total Bilirubin 1.5 mg/dL (0.2-1.3); Total Protein 7.3 g/dL (6.3-8.2)
== END 2020-01-26 15:12 | disposition home or self-care (01) ==
LOC: EC 11:44
DX: R11.2 Nausea with vomiting, unspecified (principal); R10.9 Unspecified abdominal pain; Z88.8 Allergy status to other drugs, medicaments and biological substances; Z91.018 Allergy to other foods; Z95.1 Presence of aortocoronary bypass graft
CPT/HCPCS: 99284; 96374; 96361; 36415; 93005; 80053; 82150; 83690; 85025; 85610; 85730; 81001; J2405

== ENCOUNTER 2020-02-04 20:38 | Observation (INO) | payer OTHER ==
[2020-02-04 21:07] LABS: Appearance,Urine Clear (Clear); Bilirubin,Urine Negative (Negative); Blood,Urine Small (Negative); Color,Urine Yellow; Glucose,Urine (UA) Negative (Negative); Ketones,Urine Negative (Negative); Leukocyte Esterase,Urine Negative (Negative); Nitrite,Urine Negative (Negative); Protein,Urine Negative (Negative); RBC,Urine 2 /hpf (0-5); Specific Gravity,Urine 1.021 (1.001-1.035); Squamous Epithelial Cell,Urine <1 /hpf (0-4); Urobilinogen,Urine <2.0 mg/dL (<2.0); WBC,Urine 1 /hpf (0-5)
[2020-02-04] MEDS ORDERED: KETOROLAC 30 MG/ML 1 ML VIAL IVP STA (21:09)
[2020-02-04] MEDS ORDERED: SODIUM CHLORIDE 0.9% 1,000 ML IV ONE (21:09)
[2020-02-04 21:17] LABS: Basophils % (A) 1 %; Eosinophils # (A) 0.2 k/uL (0-0.7); Eosinophils % (A) 5 %; HCT 44.7 % (34.0-46.0); HGB 14.2 gm/dL (11.4-16.0); Lymphocytes # (A) 0.6 k/uL (1.0-4.8); Lymphocytes % (A) 14 %; MCH 27.2 pg (25.0-35.0); MCHC 31.7 g/dL (31.0-37.0); MCV 85.8 fL (80.0-100.0); Mean Platelet Volume 9.4; Monocytes # (A) 0.3 k/uL (0-1.0); Monocytes % (A) 6 %; Neutrophils # (A) 2.9 k/uL (1.3-7.7); Neutrophils % (A) 72 %; Platelet Count 124 k/uL (150-450); RBC 5.21 m/uL (3.80-5.40); RDW 13.7 % (11.5-15.5); WBC 4.1 k/uL (3.8-10.6)
--- NOTE | 2020-02-04 21:20 | ED ---
General Adult HPI - General Chief complaint: Abdominal Pain Stated complaint: Abdominal Pain Time Seen by Provider: 02/04/20 20:45 Source: patient, RN notes reviewed Mode of arrival: ambulatory Limitations: no limitations - History of Present Illness Initial comments: Patient is a 39-year-old female with a past medical history of atrial fibrillation, asthma, liver disease, open heart surgery as an infant who presents to the emergency room for abdominal pain. Patient reports that she has had abdominal pain for about 2 weeks now. Patient reports she thinks she is . Patient states that she has had a miscarriage before and is concerned that her test was not positive through urine. Patient states pain occurs with ambulation. Patient does have chronic ascites for which she sees a GI specialists. States she sees on out of [facility].Patient has no other complaints at this time including shortness of breath, chest pain, nausea or vomiting, headache, or visual changes. - Related Data Previous Rx's Medication Instructions Recorded Famotidine [Pepcid] 20 mg PO BID #12 tablet 01/26/20 Ondansetron Odt [Zofran Odt] 4 mg PO Q8HR PRN #12 tab 01/26/20 Allergies Allergy/AdvReac Type Severity Reaction Status Date / Time warfarin sodium Allergy Anaphylaxis Verified 02/04/20 23:01 [From Coumadin] peas AdvReac Diarrhea Verified 02/04/20 23:01 Review of Systems ROS Statement: Those systems with pertinent positive or pertinent negative responses have been documented in the HPI. ROS Other: All systems not noted in ROS Statement are negative. 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 7, Past Anesthesia/Blood Transfusion Reactions: No Reported Reaction Past Psychological History: No Psychological Hx Reported Smoking Status: Never smoker Past Alcohol Use History: None Reported Past Drug Use History: None Reported - Past Family History Mother Family Medical History: Asthma, Cancer, Hyperlipidemia, Hypertension Additional Family Medical History / Comment(s): Mother had breast CA at age 52 Brother(s) Family Medical History: Asthma Father Family Medical History: Asthma General Exam Limitations: no limitations General appearance: alert, in no apparent distress Head exam: Present: atraumatic, normocephalic, normal inspection Eye exam: Present: normal appearance, PERRL, EOMI. Absent: scleral icterus, conjunctival injection, periorbital swelling ENT exam: Present: normal exam, mucous membranes moist Neck exam: Present: normal inspection, full ROM. Absent: tenderness, meningismus, lymphadenopathy Respiratory exam: Present: normal lung sounds bilaterally. Absent: respiratory distress, wheezes, rales, rhonchi, stridor Cardiovascular Exam: Present: regular rate, normal rhythm, normal heart sounds. Absent: systolic murmur, diastolic murmur, rubs, gallop, clicks GI/Abdominal exam: Present: soft, tenderness (minimal suprapubic tenderness), normal bowel sounds. Absent: distended, guarding, rebound, rigid Course Vital Signs 02/04/20 02/05/20 20:40 00:11 Temperature 97.6 F Pulse Rate 60 62 Respiratory 20 16 Rate Blood Pressure 121/81 93/68 O2 Sat by Pulse 97 95 Oximetry Medical Decision Making - Medical Decision Making Vitals are stable. CBC CMP unremarkable. Urinalysis unremarkable. CT abdomen and pelvis did show moderate ascites similar to old exam compared to 2017. At that time patient had had a paracentesis and liver cirrhosis. Patient will be admitted for gi consultation and likely paracentesis tomorrow. Case was discussed with Dr. Marino who accepted admission. - Lab Data Result diagrams: 02/04/20 21:10 02/04/20 21:10 Lab Results 02/04/20 02/04/20 02/04/20 Range/Units 20:52 20:52 21:10 WBC 4.1 (3.8-10.6) k/uL RBC 5.21 (3.80-5.40) m/uL Hgb 14.2 (11.4-16.0) gm/dL Hct 44.7 (34.0-46.0) % MCV 85.8 (80.0-100.0) fL MCH 27.2 (25.0-35.0) pg MCHC 31.7 (31.0-37.0) g/dL RDW 13.7 (11.5-15.5) % Plt Count 124 L (150-450) k/uL Neutrophils % 72 % Lymphocytes % 14 % Monocytes % 6 % Eosinophils % 5 % Basophils % 1 % Neutrophils # 2.9 (1.3-7.7) k/uL Lymphocytes # 0.6 L (1.0-4.8) k/uL Monocytes # 0.3 (0-1.0) k/uL Eosinophils # 0.2 (0-0.7) k/uL Basophils # 0.0 (0-0.2) k/uL Sodium (137-145) mmol/L Potassium (3.5-5.1) mmol/L Chloride (98-107) mmol/L Carbon Dioxide (22-30) mmol/L Anion Gap mmol/L BUN (7-17) mg/dL Creatinine (0.52-1.04) mg/dL Est GFR (CKD-EPI)AfAm (>60 ml/min/1.73 sqM) Est GFR (CKD-EPI)NonAf (>60 ml/min/1.73 sqM) Glucose (74-99) mg/dL Calcium (8.4-10.2) mg/dL Total Bilirubin (0.2-1.3) mg/dL AST (14-36) U/L ALT (4-34) U/L Alkaline Phosphatase (38-126) U/L Total Protein (6.3-8.2) g/dL Albumin (3.5-5.0) g/dL Lipase (23-300) U/L HCG, Quant mIU/mL Urine Color Yellow Urine Appearance Clear (Clear) Urine pH 7.0 (5.0-8.0) Ur Specific [place] 1.021 (1.001-1.035) Urine Protein Negative (Negative) Urine Glucose (UA) Negative (Negative) Urine Ketones Negative (Negative) Urine Blood Small H (Negative) Urine Nitrite Negative (Negative) Urine Bilirubin Negative (Negative) Urine Urobilinogen <2.0 (<2.0) mg/dL Ur Leukocyte Esterase Negative (Negative) Urine RBC 2 (0-5) /hpf Urine WBC 1 (0-5) /hpf Ur Squamous Epith Cells <1 (0-4) /hpf Urine HCG, Qual Not Detected (Not Detectd) 02/04/20 Range/Units 21:10 WBC (3.8-10.6) k/uL RBC (3.80-5.40) m/uL Hgb (11.4-16.0) gm/dL Hct (34.0-46.0) % MCV (80.0-100.0) fL MCH (25.0-35.0) pg MCHC (31.0-37.0) g/dL RDW (11.5-15.5) % Plt Count (150-450) k/uL Neutrophils % % Lymphocytes % % Monocytes % % Eosinophils % % Basophils % % Neutrophils # (1.3-7.7) k/uL Lymphocytes # (1.0-4.8) k/uL Monocytes # (0-1.0) k/uL Eosinophils # (0-0.7) k/uL Basophils # (0-0.2) k/uL Sodium 135 L (137-145) mmol/L Potassium 4.3 (3.5-5.1) mmol/L Chloride 103 (98-107) mmol/L Carbon Dioxide 22 (22-30) mmol/L Anion Gap 10 mmol/L BUN 14 (7-17) mg/dL Creatinine 0.76 (0.52-1.04) mg/dL Est GFR (CKD-EPI)AfAm >90 (>60 ml/min/1.73 sqM) Est GFR (CKD-EPI)NonAf >90 (>60 ml/min/1.73 sqM) Glucose 90 (74-99) mg/dL Calcium 9.8 (8.4-10.2) mg/dL Total Bilirubin 0.9 (0.2-1.3) mg/dL AST 31 (14-36) U/L ALT 14 (4-34) U/L Alkaline Phosphatase 62 (38-126) U/L Total Protein 7.8 (6.3-8.2) g/dL Albumin 4.6 (3.5-5.0) g/dL Lipase 68 (23-300) U/L HCG, Quant <2.4 mIU/mL Urine Color Urine Appearance (Clear) Urine pH (5.0-8.0) Ur Specific [place] (1.001-1.035) Urine Protein (Negative) Urine Glucose (UA) (Negative) Urine Ketones (Negative) Urine Blood (Negative) Urine Nitrite (Negative) Urine Bilirubin (Negative) Urine Urobilinogen (<2.0) mg/dL Ur Leukocyte Esterase (Negative) Urine RBC (0-5) /hpf Urine WBC (0-5) /hpf Ur Squamous Epith Cells (0-4) /hpf Urine HCG, Qual (Not Detectd) Disposition Clinical Impression: Abdominal ascites, Liver cirrhosis Disposition: ADMITTED IP TO THIS HOSP Condition: Fair Is patient prescribed a controlled substance at d/c from ED?: No Time of Disposition: 01:54
[2020-02-04 21:27] LABS: ALT 14 U/L (4-34); AST 31 U/L (14-36); African American GFR (CKD) >90 (>60 ml/min/1.73 sqM); Albumin 4.6 g/dL (3.5-5.0); Alkaline Phosphatase 62 U/L (38-126); Anion Gap 10 mmol/L; Blood Urea Nitrogen 14 mg/dL (7-17); Calcium 9.8 mg/dL (8.4-10.2); Carbon Dioxide 22 mmol/L (22-30); Chloride 103 mmol/L (98-107); Glucose 90 mg/dL (74-99); Non-African American GFR(CKD) >90 (>60 ml/min/1.73 sqM); Potassium 4.3 mmol/L (3.5-5.1); Sodium 135 mmol/L (137-145); Total Bilirubin 0.9 mg/dL (0.2-1.3); Total Protein 7.8 g/dL (6.3-8.2)
[2020-02-04 21:43] LABS: HCG,Quantitative Serum <2.4 mIU/mL
--- NOTE | 2020-02-04 22:57 | CT ---
EXAMINATION TYPE: CT abdomen pelvis w con DATE OF EXAM: 02/04/2020 COMPARISON: 08/21/2016 HISTORY: Abd Pain, Right flank pain CT DLP: 743.20 mGycm Automated exposure control for dose reduction was used. CONTRAST: Performed with IV Contrast, patient injected with 100 mL of Isovue 300. Lung bases are clear of consolidation. There is no pleural effusion. There is heterogeneous enhanceme nt of the liver. Liver margin is slightly irregular consistent with cirrhosis. There is large amount abdominal ascites. Spleen is top normal in size and measures 13 cm. Stomach is intact. There is no ev idence of pancreatic mass. The bile ducts are not dilated. There is normal contrast opacification of the portal venous system. There is no adrenal mass. Kidneys show satisfactory contrast opacification. There is no hydronephrosi s. Ureters are not dilated. Delayed images show normal renal excretion. There is no retroperitoneal a denopathy. Bladder distends smoothly. Uterus is anteverted. There is no sign of a pelvic mass. There is no sign of free air. There is no evidence of bowel obstruction. There is no sign of thickene d appendix. Lumbar vertebra have normal alignment. There is no compression fracture. Posterior elemen ts are intact. Bony pelvis appears intact. IMPRESSION: Moderate abdominal ascites similar to old exam. Mild splenomegaly. Changes in the liver consistent wi th cirrhosis. There is overall no significant change compared to old exam.
[2020-02-04] MEDS ORDERED: MORPHINE SULFATE 4 MG/ML SYRINGE IV PRN (23:26)
[2020-02-04] MEDS ORDERED: HYDROmorphone 0.5 MG/0.5 ML SYRINGE IVP PRN (23:26)
[2020-02-04] MEDS ORDERED: NALOXONE 0.4 MG/ML 1 ML VIAL IV PRN (23:26)
[2020-02-05] MEDS: SODIUM CHLORIDE 0.9% 1,000 ML IV SCH (00:12)
[2020-02-05 08:13] LABS: INR 1.2 (<1.2); Partial Thromboplastin Time 27.3 sec (22.0-30.0); Prothrombin Time 12.4 sec (9.0-12.0)
--- NOTE | 2020-02-05 14:25 | P.HPIM ---
History of Present Illness H&P Date: 02/05/20 Asuncion Rizzo, is a 39-year-old female who presented to [facility] emergency room with a chief complaint of abdominal pain and vomiting, patient was evaluated in the emergency room, computed tomography scan of the abdomen and pelvis revealed evidence of splenomegaly was large amount of ascites, she was admitted to medical floor, radiology consultation was requested for paracentesis, gastroenterology consultation was also requested. Patient has a known history of congenital heart disease, she had multiple cardiac surgeries in childhood, she developed liver cirrhosis in early adulthood likely related to liver congestion related to congenital heart disease, patient also has known history of hypertension which is asymptomatic for her. Patient also has a known history of hypothyroidism, history of atrial flutter and history of vitamin D deficiency. On review of systems patient is complaining of nausea vomiting abdominal pain, otherwise she denies any symptoms there is no fever or chills no headache or dizziness no chest pain no shortness of breath no cough no diarrhea no blood in the stools no burning with urination no frequency or urgency no hematuria 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 7, Past Anesthesia/Blood Transfusion Reactions: No Reported Reaction Additional Past Anesthesia/Blood Transfusion Reaction / Comment(s): Patient states she is allergic to anesthesia during 2018 heart cath -- had numbness in right face and left hand, states anesthesiologists indicated if next procedure, would have to be adjusted Past Psychological History: No Psychological Hx Reported Smoking Status: Never smoker Past Alcohol Use History: None Reported Past Drug Use History: None Reported - Past Family History Mother Family Medical History: Asthma, Cancer, Hyperlipidemia, Hypertension Additional Family Medical History / Comment(s): Mother had breast CA at age 52 Brother(s) Family Medical History: Asthma Father Family Medical History: Asthma Medications and Allergies Home Medications Medication Instructions Recorded Confirmed Type Famotidine [Pepcid] 20 mg PO BID #12 tablet 01/26/20 02/04/20 Rx Ondansetron Odt [Zofran Odt] 4 mg PO Q8HR PRN #12 tab 01/26/20 02/04/20 Rx Allergies Allergy/AdvReac Type Severity Reaction Status Date / Time warfarin sodium Allergy Anaphylaxis Verified 02/04/20 23:01 [From Coumadin] peas AdvReac Diarrhea Verified 02/04/20 23:01 Physical Exam Vitals: Vital Signs Temp Pulse Pulse Resp BP BP Pulse Ox 02/05/20 12:36 97.5 F L 63 17 78/57 96 02/05/20 11:00 69 89/60 95 02/05/20 05:40 97.6 F 51 L 16 72/52 93 L 02/05/20 02:00 16 02/05/20 00:56 97.6 F 60 16 96/66 97 02/05/20 00:11 62 16 93/68 95 02/04/20 20:40 97.6 F 60 20 121/81 97 Intake and Output 02/04/20 02/05/20 02/05/20 22:59 06:59 14:59 Intake Total 120 Balance 120 Intake: Intake, IV Titration 120 Amount Sodium Chloride 0.9% 1, 120 000 ml @ 20 mls/hr IV . Q24H [facility] Rx#:[id number] Oral 0 Other: Voiding Method Toilet # Voids 1 # Bowel Movements 1 Weight 58.06 kg 58.06 kg In general patient is alert and oriented 3 in no apparent distress HEENT head normocephalic and atraumatic Neck is supple no JVD no goiter no lymphadenopathy Chest exam reveals a few scattered rhonchi no wheezing Cardiac exam reveals regular heart sounds, no gallops no murmurs Abdomen is soft with mild diffuse tenderness, no palpable masses slightly distended with ascites Extremity exam reveals minimal edema Neurological examination reveals no gross focal deficits Results CBC & Chem 7: 02/04/20 21:10 02/04/20 21:10 Labs: Abnormal Lab Results - Last 24 Hours (Table) 02/04/20 02/04/20 02/04/20 Range/Units 20:52 21:10 21:10 Plt Count 124 L (150-450) k/uL Lymphocytes # 0.6 L (1.0-4.8) k/uL PT (9.0-12.0) sec INR (<1.2) Sodium 135 L (137-145) mmol/L Urine Blood Small H (Negative) 02/05/20 Range/Units 07:11 Plt Count (150-450) k/uL Lymphocytes # (1.0-4.8) k/uL PT 12.4 H (9.0-12.0) sec INR 1.2 H (<1.2) Sodium (137-145) mmol/L Urine Blood (Negative) Thrombosis Risk Factor Assmnt - Choose All That Apply Any of the Below Risk Factors Present?: No Other Risk Factors: No Other congenital or acquired thrombophilia - If yes, enter type in comment: No Thrombosis Risk Factor Assessment Level: Very Low Risk Assessment and Plan Plan: 1. Abdominal pain nausea vomiting, cause is unclear, no significant abnormality on computed tomography scan of the abdomen and pelvis to account for her symptoms, patient has chronic splenomegaly, and has recurrent ascites related to liver cirrhosis, at this time gastroenterology consultation and radiology consultation are requested. 2. History of hypothyroidism, patient is not taking any thyroid medication at this time, will check TSH 3. Underlying history of atrial fibrillation, currently patient is in sinus rhythm, EKG reveals first-degree AV block and non-specific ST and T-wave abnormality in the lateral leads, cardiology consultation was requested 4. Underlying history of congenital heart disease was multiple surgeries in childhood 5. For DVT prophylaxis we will use SCD stockings for GI prophylaxis Will use Protonix Will follow during this admission for medical management
[2020-02-05] MEDS ORDERED: ONDANSETRON ODT 4 MG TAB PO PRN (14:27)
[2020-02-05 16:30] LABS: T4, Free (Free Thyroxine) 0.99 ng/dL (0.78-2.19)
[2020-02-05] MEDS: FAMOTIDINE 20 MG TAB PO SCH (20:30)
--- NOTE | 2020-02-06 00:53 | CONS ---
CONSULTATION DATE OF DICTATION: 02/05/2020 REASON FOR CONSULTATION: Ascites. HISTORY OF PRESENT ILLNESS: The patient is a 39-year-old white female with history of congenital heart disease, status post cardiac surgery as an and history of cirrhosis of the liver diagnosed several years ago and used to follow up at [facility]. She has not seen any GI for the last year. She presents to the hospital complaining of abdominal pain and abdominal distention for the last three months duration. She has not been taking any of her diuretics as prescribed. She did have a CT of the abdomen and pelvis done in the emergency room that showed evidence of splenomegaly colon and large amount of ascites. She was scheduled for large-volume paracentesis today however because of hypotension, the procedure was canceled. The patient patient complains of diffuse abdominal pain. She reports no nausea, vomiting. No fever, chills, or night sweats. PAST MEDICAL HISTORY: Atrial fibrillation, asthma, hypothyroidism, chronic liver disease with cirrhosis of the liver diagnosed several years ago requiring paracentesis in the past. PAST SURGICAL HISTORY: Open heart surgery as an , paracentesis, D and C. MEDICATIONS AT HOME: Pepcid and Zofran. ALLERGIES: Allergies to COUMADIN. SOCIAL HISTORY: No smoking. No alcohol use. FAMILY HISTORY: Mother has hypertension, hyperlipidemia and breast cancer. Father has asthma. REVIEW OF SYSTEMS: CARDIOPULMONARY: She denies any chest pain or shortness of breath. GENITOURINARY: No dysuria or hematuria. MUSCULOSKELETAL: Unremarkable. SKIN: Unremarkable. ENDOCRINE: Unremarkable. PSYCHIATRIC: Unremarkable. NEUROLOGY: Unremarkable. GI: As mentioned above. CONSTITUTIONAL: No recent weight loss. No fever, chills, night sweats. PHYSICAL EXAMINATION: She appears comfortable. No apparent distress. Vital signs are stable. Blood pressure is 91/67, pulse rate 63, temperature 97.5. HEENT EXAMINATION: Unremarkable. Conjunctivae pink. Sclerae anicteric. Oral cavity no lesions. NECK: No JVD or lymph node enlargement. CHEST: Clear to auscultation. HEART: Regular rate and rhythm. ABDOMEN: Bowel sounds are positive. No organomegaly. Mild distention noted. EXTREMITIES: No pedal edema. NEURO: She is alert and oriented x3. No focal deficits. LABS: Labs done at the time of admission to the hospital: WBC 4.1, hemoglobin 14.2, platelets 124. PT/INR is 12.4/1.2. AST, ALT, T bilirubin and alkaline phosphatase are within normal. CT of the abdomen and pelvis done in the emergency room did show evidence of large amount of ascites, mild splenomegaly and changes consistent with cirrhosis of the liver. IMPRESSION: 1. Liver cirrhosis diagnosed several years ago. Use to follow up at [facility]. According to the patient, cirrhosis. 2. Moderate amount of ascites. Patient has been off the diuretics for almost 2 years now. 3. Congenital heart disease, status post open heart surgery as an . 4. Mild hypotension. RECOMMENDATION: 1. Schedule for large-volume paracentesis tomorrow. 2. After the paracentesis, she will be started on Lasix 40 mg daily and Aldactone 50 mg daily. 3. Low-salt diet. 4. Patient was advised to follow up in the office in 2 to 3 weeks following discharge from the hospital. Thank you for this consultation. MMODL / IJN: [id number] /
[2020-02-06] MEDS: SODIUM CHLORIDE 0.9% 1,000 ML IV SCH (03:52)
[2020-02-06 08:01] LABS: Basophils % (A) 1 %; Eosinophils # (A) 0.2 k/uL (0-0.7); Eosinophils % (A) 4 %; HCT 43.5 % (34.0-46.0); HGB 13.2 gm/dL (11.4-16.0); Hypochromasia Slight; Lymphocytes # (A) 0.5 k/uL (1.0-4.8); Lymphocytes % (A) 13 %; MCHC 30.5 g/dL (31.0-37.0); MCV 88.7 fL (80.0-100.0); Mean Platelet Volume 9.3; Monocytes # (A) 0.3 k/uL (0-1.0); Monocytes % (A) 7 %; Neutrophils # (A) 2.8 k/uL (1.3-7.7); Neutrophils % (A) 74 %; Platelet Count 113 k/uL (150-450); RDW 13.2 % (11.5-15.5); WBC 3.8 k/uL (3.8-10.6)
[2020-02-06 08:08] LABS: African American GFR (CKD) >90 (>60 ml/min/1.73 sqM); Anion Gap 6 mmol/L; Blood Urea Nitrogen 13 mg/dL (7-17); Carbon Dioxide 23 mmol/L (22-30); Chloride 107 mmol/L (98-107); Glucose 69 mg/dL (74-99); Potassium 4.5 mmol/L (3.5-5.1); Sodium 136 mmol/L (137-145)
[2020-02-06 08:09] LABS: ALT 10 U/L (4-34); AST 27 U/L (14-36); Albumin 3.5 g/dL (3.5-5.0); Alkaline Phosphatase 43 U/L (38-126); Calcium 8.5 mg/dL (8.4-10.2); Non-African American GFR(CKD) 87 (>60 ml/min/1.73 sqM); Total Bilirubin 1.5 mg/dL (0.2-1.3); Total Protein 6.2 g/dL (6.3-8.2)
[2020-02-06] MEDS: PANTOPRAZOLE 40 MG TABLET PO SCH (08:54)
[2020-02-06] MEDS: FAMOTIDINE 20 MG TAB PO SCH ×2 (08:54→20:56)
[2020-02-06] MEDS: ALBUMIN HUMAN 25% 50 ML in EMPTY BAG 1 BAG IVPB SCH ×2 (13:14→14:46)
--- NOTE | 2020-02-06 14:30 | P.CRDCN ---
History of Present Illness History of present illness: HISTORY OF PRESENTING ILLNESS This is a pleasant 39-year-old female past medical history significant for tricuspid atresia status post Fontan procedure. She is supposed to follow with a flight steward out of [facility] distress however she has not been seen for the previous 2 years. We have been asked to see in consultation for hypotension. She presented to the hospital with symptoms of abdominal swelling nausea and vomiting. She is found to have significant abdominal ascites and was supposed to undergo a paracentesis this morning however test canceled secondary to hypotension. Blood pressure while laying flat in bed this morning was 79/51. The patient denies symptoms of chest pain, shortness of breath, dizziness or palpitations. She states her blood pressure always runs on the low side. She denies history of syncope. Blood pressure while sitting on the edge of the bed is 112/78 heart rate of 84 afebrile maintaining oxygen saturation on room air. Laboratory data reviewed, WBC 3.8, hemoglobin 13.2, platelets 113, INR 1.2, sodium 136, potassium 4.5, creatinine 0.85, TSH 17.9, free T4. No EKG obtained on admission. Most recent echocardiogram obtained in November 2019 revealed preserved LV systolic function with ejection fraction 50-55%, severe concentric LVH, paradoxical Disetronic septal wall motion secondary to postoperative status, RV not well visualized, mild to moderate aortic regurgitation with no evidence of aortic stenosis, mild mitral regurgitation and no pericardial effusion noted. REVIEW OF SYSTEMS At the time of my exam: CONSTITUTIONAL: Denies fever or chills. CARDIOVASCULAR: Denies chest pain, shortness of breath, orthopnea, PND or palpitations. RESPIRATORY: Denies cough. GASTROINTESTINAL: Denies abdominal pain, diarrhea, constipation, nausea or vomiting. MUSCULOSKELETAL: Denies myalgias. NEUROLOGIC: Denies numbness, tingling or weakness. ENDOCRINE: Denies fatigue, weight change, polydipsia or polyurina. GENITOURINARY: Denies burning, hematuria or urgency with micturation. HEMATOLOGIC: Denies history of anemia or bleeding. PHYSICAL EXAMINATION CONSTITUTIONAL: No apparent distress. Generalized jaundice. HEENT: Head is normocephalic. Pupils are equal, round. Sclerae anicteric. Mucous membranes of the mouth are moist. No JVD. No carotid bruit. CHEST EXAMINATION: Lungs are clear to auscultation. No chest wall tenderness is noted on palpation or with deep breathing. HEART EXAMINATION: Regular rate and rhythm. S1, S2 heard. No murmurs, gallops or rub. ABDOMEN: Soft, nontender, distended. Positive bowel sounds. EXTREMITIES: 2+ peripheral pulses, no lower extremity edema and no calf tenderness. NEUROLOGIC EXAMINATION: Patient is awake, alert and oriented x3. ASSESSMENT Hypotension Ascites Tricuspid atresia Liver cirrhosis PLAN Blood pressure is low but stable. She is asymptomatic completely. Initiate aldactone 25 mg PO today and watch for blood pressure fluctuations. Recommend close follow up with her cardiology team at [facility]. Thank you kindly for this consultation. Nurse Practitioner note has been reviewed, I agree with a documented findings and plan of care. Patient was seen and examined. Past Medical History Past Medical History: Atrial Flutter, Asthma, Liver Disease, Thyroid Disorder Additional Past Medical History / Comment(s): heart surgery r/t valves as an , History of Any Multi-Drug Resistant Organisms: None Reported Past Surgical History: Coronary Bypass/CABG Additional Past Surgical History / Comment(s): D&C in November 2013, paracentesis, patient states her liver "went bad" after a miscarriage in 2013, Fontan Proce dure for congenital heart defect at age 1 and age 7, Past Anesthesia/Blood Transfusion Reactions: No Reported Reaction Additional Past Anesthesia/Blood Transfusion Reaction / Comment(s): Patient states she is allergic to anesthesia during 2018 heart cath -- had numbness in right face and left hand, states anesthesiologists indicated if next procedure, would have to be adjusted Past Psychological History: No Psychological Hx Reported Smoking Status: Never smoker Past Alcohol Use History: None Reported Past Drug Use History: None Reported - Past Family History Mother Family Medical History: Asthma, Cancer, Hyperlipidemia, Hypertension Additional Family Medical History / Comment(s): Mother had breast CA at age 52 Brother(s) Family Medical History: Asthma Father Family Medical History: Asthma Medications and Allergies Home Medications Medication Instructions Recorded Confirmed Type Famotidine [Pepcid] 20 mg PO BID #12 tablet 01/26/20 02/04/20 Rx Ondansetron Odt [Zofran Odt] 4 mg PO Q8HR PRN #12 tab 01/26/20 02/04/20 Rx Allergies Allergy/AdvReac Type Severity Reaction Status Date / Time warfarin sodium Allergy Anaphylaxis Verified 02/04/20 23:01 [From Coumadin] peas AdvReac Diarrhea Verified 02/04/20 23:01 Physical Exam Vitals: Vital Signs Temp Pulse Resp BP BP Pulse Ox 02/06/20 09:03 84 14 112/78 93 L 02/06/20 05:00 97.6 F 55 L 16 79/51 92 L 02/06/20 00:23 68 16 76/52 96 02/05/20 21:00 98.1 F 55 L 16 76/56 95 02/05/20 14:33 91/67 02/05/20 12:36 97.5 F L 63 17 78/57 96 Intake and Output 02/05/20 02/06/20 02/06/20 22:59 06:59 14:59 Intake Total 590 Balance 590 Intake: Oral 590 Other: Voiding Method Toilet Toilet # Voids 1 2 Results 02/06/20 07:02 02/06/20 07:02 Cardiac Enzymes 02/06/20 Range/Units 07:02 AST 27 (14-36) U/L CBC 02/06/20 Range/Units 07:02 WBC 3.8 (3.8-10.6) k/uL RBC 4.90 (3.80-5.40) m/uL Hgb 13.2 (11.4-16.0) gm/dL Hct 43.5 (34.0-46.0) % Plt Count 113 L (150-450) k/uL Comprehensive Metabolic Panel 02/06/20 Range/Units 07:02 Sodium 136 L (137-145) mmol/L Potassium 4.5 (3.5-5.1) mmol/L Chloride 107 (98-107) mmol/L Carbon Dioxide 23 (22-30) mmol/L BUN 13 (7-17) mg/dL Creatinine 0.85 (0.52-1.04) mg/dL Glucose 69 L (74-99) mg/dL Calcium 8.5 (8.4-10.2) mg/dL AST 27 (14-36) U/L ALT 10 (4-34) U/L Alkaline Phosphatase 43 (38-126) U/L Total Protein 6.2 L (6.3-8.2) g/dL Albumin 3.5 (3.5-5.0) g/dL Current Medications Generic Name Dose Route Start Last Admin Trade Name Freq PRN Reason Stop Dose Admin Famotidine 20 mg 02/05/20 21:00 02/06/20 08:54 Pepcid PO 20 mg BID PIORT Administration Hydromorphone HCl 0.5 mg 02/04/20 23:26 02/05/20 10:23 Dilaudid IVP 0.5 mg Q3HR PRN Administration Moderate Pain Sodium Chloride 1,000 mls @ 20 mls/hr 02/04/20 23:30 02/06/20 03:52 Saline 0.9% IV Not Given .Q24H PIOTR Morphine Sulfate 4 mg 02/04/20 23:26 Morphine Sulfate (Inj) IV Q4HR PRN Severe Pain Naloxone HCl 0.2 mg 02/04/20 23:26 Narcan IV Q2M PRN Opioid Reversal Ondansetron HCl 4 mg 02/05/20 14:27 02/05/20 20:30 Zofran Odt PO 4 mg Q8HR PRN Administration Nausea Pantoprazole Sodium 40 mg 02/06/20 07:30 02/06/20 08:54 Protonix PO 40 mg [id number] PIOTR Administration Spironolactone 25 mg 02/07/20 09:00 Aldactone PO DAILY PIOTR Intake and Output 02/05/20 02/06/20 02/06/20 22:59 06:59 14:59 Intake Total 590 Balance 590 Intake: Oral 590 Other: Voiding Method Toilet Toilet # Voids 1 2 02/06/20 07:02 02/06/20 07:02
--- NOTE | 2020-02-06 17:21 | US ---
EXAMINATION TYPE: US paracentesis abd w/image DATE OF EXAM: 02/06/2020 CLINICAL HISTORY: Abdominal pain. Ascites. COMPARISON: CT abdomen pelvis 02/04/2020. EQUINE INTERN: Dr. Meme Mora D.O. Preprocedure preliminary imaging demonstrates large volume ascites. The procedure was discussed with the patient. The risks, complications, benefits, and alternatives were discussed and any questions we re answered. Informed consent was obtained. The patient was placed supine on the ultrasound table and prepped and draped in the usual sterile fashion. All elements of maximal barrier technique were utilized. Under ultrasound guidance, access into the right lower quadrant was obtained with a 5 Iraqi one-step centesis catheter. Approximately 3.8 liters of clear serous fluid was removed. Catheter was removed and sterile bandage was applied. The patient was stable throughout the procedure and remained stable upon discharge from Department of Radiology. Fluid sent for diagnostic testing. IMPRESSION: Successful ultrasound-guided diagnostic and therapeutic paracentesis, with removal of 3.8 liters of c lear serous fluid.
--- NOTE | 2020-02-06 17:42 | P.PN ---
Subjective Progress Note Date: 02/06/20 Asuncion Rizzo, is a 39-year-old female who presented to [facility] emergency room with a chief complaint of abdominal pain and vomiting, patient was evaluated in the emergency room, computed tomography scan of the abdomen and pelvis revealed evidence of splenomegaly was large amount of ascites, she was admitted to medical floor, radiology consultation was requested for paracentesis, gastroenterology consultation was also requested. Patient has a known history of congenital heart disease, she had multiple cardiac surgeries in childhood, she developed liver cirrhosis in early adulthood likely related to liver congestion related to congenital heart disease, patient also has known history of hypertension which is asymptomatic for her. Patient also has a known history of hypothyroidism, history of atrial flutter and history of vitamin D deficiency. On review of systems patient is complaining of nausea vomiting abdominal pain, otherwise she denies any symptoms there is no fever or chills no headache or dizziness no chest pain no shortness of breath no cough no diarrhea no blood in the stools no burning with urination no frequency or urgency no hematuria. On 02/06/2020, patient was seen and examined on the medical floor, she is alert and oriented 3 in no apparent distress, she underwent paracentesis today, her office medication were reviewed, patient was maintained on multiple medications that she stopped on her own, she was counseled in length today in regard to adh erence to taking medications, she was restarted on levothyroxine 75 g by mouth daily, patient also sees a dictating machine typist in [place] and he has her maintained on sotalol 120 mg twice daily and Lovenox subcu, patient was also maintained on Lasix and Aldactone, all these medications were resumed Will monitor patient progress to tomorrow if stable she may be discharged home. Objective - Vital Signs Vital signs: Vital Signs Temp 97.6 F 02/06/20 05:00 Pulse 58 L 02/06/20 16:05 Resp 16 02/06/20 16:05 BP 91/51 02/06/20 16:05 Pulse Ox 96 02/06/20 16:05 Intake & Output 02/05/20 02/06/20 02/06/20 18:59 06:59 18:59 Intake Total 590 Balance 590 Intake: Oral 590 Other: Voiding Method Toilet Toilet # Voids 1 2 3 # Bowel Movements 1 - Exam In general patient is alert and oriented 3 in no apparent distress HEENT head normocephalic and atraumatic Neck is supple no JVD no goiter no lymphadenopathy Chest exam reveals a few scattered rhonchi no wheezing Cardiac exam reveals regular heart sounds, no gallops no murmurs Abdomen is soft with mild diffuse tenderness, no palpable masses slightly distended with ascites Extremity exam reveals minimal edema Neurological examination reveals no gross focal deficits - Labs CBC & Chem 7: 02/06/20 07:02 02/06/20 07:02 Labs: Abnormal Lab Results - Last 24 Hours (Table) 02/06/20 02/06/20 Range/Units 07:02 07:02 MCHC 30.5 L (31.0-37.0) g/dL Plt Count 113 L (150-450) k/uL Lymphocytes # 0.5 L (1.0-4.8) k/uL Sodium 136 L (137-145) mmol/L Glucose 69 L (74-99) mg/dL Total Bilirubin 1.5 H (0.2-1.3) mg/dL Total Protein 6.2 L (6.3-8.2) g/dL Assessment and Plan Plan: 1. Abdominal pain nausea vomiting, cause is unclear, no significant abnormality on computed tomography scan of the abdomen and pelvis to account for her symptoms, patient has chronic splenomegaly, and has recurrent ascites related to liver cirrhosis, at this time gastroenterology consultation and radiology consultation are requested. 2. History of hypothyroidism, patient is not taking any thyroid medication at this time, will check TSH 3. Underlying history of atrial fibrillation, currently patient is in sinus rhythm, EKG reveals first-degree AV block and non-specific ST and T-wave abnormality in the lateral leads, cardiology consultation was requested 4. Underlying history of congenital heart disease was multiple surgeries in childhood 5. For DVT prophylaxis we will use SCD stockings for GI prophylaxis Will use Protonix Will follow during this admission for medical management Home medication resume, patient counseled about importance of taking medications on a regular basis Possible discharge to home tomorrow
[2020-02-06] MEDS: ENOXAPARIN 80 MG/0.8 ML SYRINGE SQ SCH (17:57)
[2020-02-06 18:50] LABS: Appearance,BF Hazy; Color,BF Yellow; Nucleated Cells, Body Fluid 45 /uL; RBC, Body Fluid 745 /uL
[2020-02-06 18:59] LABS: Mononuclear WBC,Body Fluid 48 %; Polynuclear WBC,Body Fluid 52 %; Total Cells Counted,Body Fluid 100
[2020-02-06] MEDS: SOTALOL 120 MG TAB PO SCH (20:56)
--- NOTE | 2020-02-06 21:52 | PN ---
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 She required paracentesis on and off. Lately has not been taking any diuretics. She is scheduled for large-volume paracentesis today at 3:00 p.m. PHYSICAL EXAMINATION: She appears comfortable. No apparent distress. VITAL SIGNS: Blood pressure 91/51, pulse rate 58, temperature 98.6. HEENT: Examination unremarkable. Conjunctivae are pink. Sclerae anicteric. Oral cavity no lesions. Neck no JVD or lymph node enlargement. CHEST: Clear to auscultation. HEART: Regular rate and rhythm. ABDOMEN: Soft, slightly distended. EXTREMITIES: No pedal edema. NEUROLOGIC: Alert and oriented x3. No focal deficits. LABS: From today WBC 3.8, hemoglobin 13.2, platelets 113. Basic metabolic panel is within normal limits. IMPRESSION: 1. Ascites secondary to portal hypertension from underlying cirrhosis of the liver. The patient has been off diuretics for 2 years. She is scheduled for large-volume paracentesis today. 2. Hypo and hypertension. 3. History of congenital heart disease, status post surgery as an infant. RECOMMENDATION: 1. Await paracentesis. 2. Will give her albumin infusion at the time of paracentesis. 3. Start her on Aldactone 25 mg daily following the paracentesis. 4. We will follow with you closely. Thank you for this consultation. MMZANAL / IJN: [id number] /
[2020-02-07 03:02] LABS: Albumin, Fluid Source Ascites
[2020-02-07] MEDS ORDERED: LEVOTHYROXINE 75 MCG TAB PO SCH (06:30)
[2020-02-07 07:13] LABS: Basophils % (A) 1 %; Eosinophils # (A) 0.2 k/uL (0-0.7); Eosinophils % (A) 4 %; HCT 44.6 % (34.0-46.0); HGB 13.9 gm/dL (11.4-16.0); Lymphocytes # (A) 0.7 k/uL (1.0-4.8); Lymphocytes % (A) 19 %; MCH 27.4 pg (25.0-35.0); MCHC 31.1 g/dL (31.0-37.0); MCV 88.1 fL (80.0-100.0); Mean Platelet Volume 9.5; Monocytes # (A) 0.3 k/uL (0-1.0); Monocytes % (A) 9 %; Neutrophils # (A) 2.3 k/uL (1.3-7.7); Neutrophils % (A) 65 %; Platelet Count 114 k/uL (150-450); RBC 5.06 m/uL (3.80-5.40); RDW 13.6 % (11.5-15.5); WBC 3.5 k/uL (3.8-10.6)
[2020-02-07 07:21] LABS: ALT 11 U/L (4-34); AST 25 U/L (14-36); African American GFR (CKD) >90 (>60 ml/min/1.73 sqM); Alkaline Phosphatase 42 U/L (38-126); Anion Gap 5 mmol/L; Blood Urea Nitrogen 13 mg/dL (7-17); Calcium 8.9 mg/dL (8.4-10.2); Carbon Dioxide 25 mmol/L (22-30); Chloride 106 mmol/L (98-107); Glucose 83 mg/dL (74-99); Non-African American GFR(CKD) 84 (>60 ml/min/1.73 sqM); Potassium 5.2 mmol/L (3.5-5.1); Sodium 136 mmol/L (137-145); Total Bilirubin 1.3 mg/dL (0.2-1.3); Total Protein 6.5 g/dL (6.3-8.2)
[2020-02-07] MEDS: SOTALOL 120 MG TAB PO SCH (08:14)
[2020-02-07] MEDS: PANTOPRAZOLE 40 MG TABLET PO SCH (08:14)
[2020-02-07] MEDS: FAMOTIDINE 20 MG TAB PO SCH (08:14)
[2020-02-07] MEDS ORDERED: SPIRONOLACTONE 25 MG TAB PO SCH ×2 (09:00)
[2020-02-07] MEDS ORDERED: FUROSEMIDE 40 MG TAB PO SCH (09:00)
[2020-02-07] MEDS: ENOXAPARIN 80 MG/0.8 ML SYRINGE SQ SCH (09:04)
[2020-02-07 11:31] VITALS: BP 125/87; PULSE 53; RESP 16; TEMP 97.9
--- NOTE | 2020-02-07 13:40 | P.DS ---
Providers Date of admission: 02/07/20 10:53 Expected date of discharge: 02/07/20 Attending physician: Devaughn Marino Consults: 02/04/20 23:28 Consult Physician Routine Consulting Provider: Anne Marie Nix Consult Reason/Comments: ascites, liver cirrhosis Do you want consulting provider notified?: Yes 02/05/20 14:03 Consult Physician Routine Consulting Provider: Anne Marie Nix Consult Reason/Comments: ascites Do you want consulting provider notified?: Yes 02/05/20 14:04 Consult Physician Routine Consulting Provider: Haylee Suarez Consult Reason/Comments: hypotnsion, congenital heart disease Do you want consulting provider notified?: Yes Primary care physician: Devaughn Ned [facility] Course: Diagnoses on discharge: 1. Abdominal pain nausea vomiting, cause is unclear, no significant abnormality on computed tomography scan of the abdomen and pelvis to account for her symptoms, patient has chronic splenomegaly, and has recurrent ascites related to liver cirrhosis, at this time gastroenterology consultation and radiology consultation are requested. 2. History of hypothyroidism, patient is not taking any thyroid medication at this time, will check TSH 3. Underlying history of atrial fibrillation, currently patient is in sinus rhythm, EKG reveals first-degree AV block and non-specific ST and T-wave abnormality in the lateral leads, cardiology consultation was requested 4. Underlying history of congenital heart disease was multiple surgeries in childhood 5. For DVT prophylaxis we will use SCD stockings for GI prophylaxis Will use Protonix 6. Noncompliance with medications at home patient was counseled in length during this visit to take all her medications as prescribed as outpatient. She will be followed in our office in 2 days to reevaluate all her medications Hospital Course: Asuncion Rizzo, is a 39-year-old female who presented to [facility] emergency room with a chief complaint of abdominal pain and vomiting, patient was evaluated in the emergency room, computed tomography scan of the abdomen and pelvis revealed evidence of splenomegaly was large amount of ascites, she was admitted to medical floor, radiology consultation was requested for paracentesis, gastroenterology consultation was also requested. Patient has a known history of congenital heart disease, she had multiple cardiac surgeries in childhood, she developed liver cirrhosis in early adulthood likely related to liver congestion related to congenital heart disease, patient also has known history of hypertension which is asymptomatic for her. Patient also has a known history of hypothyroidism, history of atrial flutter and history of vitamin D deficiency. On review of systems patient is complaining of nausea vomiting abdominal pain, otherwise she denies any symptoms there is no fever or chills no headache or dizziness no chest pain no shortness of breath no cough no diarrhea no blood in the stools no burning with urination no frequency or urgency no hematuria. On 02/06/2020, patient was seen and examined on the medical floor, she is alert and oriented 3 in no apparent distress, she underwent paracentesis today, her office medication were reviewed, patient was maintained on multiple medications that she stopped on her own, she was counseled in length today in regard to adherence to taking medications, she was restarted on levothyroxine 75 g by mouth daily, patient also sees a case manager specialist in [place] and he has her maintained on sotalol 120 mg twice daily and Lovenox subcu, patient was also maintained on Lasix and Aldactone, all these medications were resumed Will monitor patient progress to tomorrow if stable she may be discharged home. On 02/07/2020 patient was seen and examined on the medical floor she is alert and oriented 3 in no apparent distress, she is able to ambulate without any difficulty, or abdominal pain nausea and vomiting has subsided, patient will be discharged home today, results on the peritoneal fluid is still pending, will follow in the office in 2 days for further evaluation and treatment. Patient Condition at Discharge: Fair Plan - Discharge Summary New Discharge Prescriptions: New Spironolactone [Aldactone] 50 mg PO DAILY tab Sotalol [Betapace] 120 mg PO BID tab Furosemide [Lasix] 40 mg PO BID@0900,1600 tab Enoxaparin [Lovenox] 80 mg SQ DAILY syringe Levothyroxine Sodium [Synthroid] 75 mcg PO DAILY@0630 tab Continue Famotidine [Pepcid] 20 mg PO BID #12 tablet Discontinued Ondansetron Odt [Zofran Odt] 4 mg PO Q8HR PRN #12 tab PRN Reason: Nausea Discharge Medication List Famotidine [Pepcid] 20 mg PO BID #12 tablet 01/26/20 [Rx] Enoxaparin [Lovenox] 80 mg SQ DAILY syringe 02/07/20 [Rx] Furosemide [Lasix] 40 mg PO BID@0900,1600 tab 02/07/20 [Rx] Levothyroxine Sodium [Synthroid] 75 mcg PO DAILY@0630 tab 02/07/20 [Rx] Sotalol [Betapace] 120 mg PO BID tab 02/07/20 [Rx] Spironolactone [Aldactone] 50 mg PO DAILY tab 02/07/20 [Rx] Follow up Appointment(s)/Referral(s): Anne Marie Nix MD [STAFF PHYSICIAN] - 3 Weeks (Patient needs to make follow up appointment with doctor Boyd in 3 weeks.) Devaughn Marino MD [Primary Care Provider] - 02/09/20 10:45 am Patient Instructions/Handouts: Spironolactone (By mouth), Ascites (DC), Paracentesis (DC) Activity/Diet/Wound Care/Special Instructions: Patient encouraged to follow-up with her Cardiology Team at [facility] after discharge. Activity as tolerated.
== END 2020-02-07 15:00 | disposition home or self-care (01) ==
LOC: EC 20:38 → 5NMEDONC 23:55 → OBSVTOIN 02-07 10:53 → INTOOBSV 02-07 10:53 → UNDODISIN 02-07 15:00
PROVIDERS: ADMIT Internal Medicine; ATTEND Internal Medicine
DX: R18.8 Other ascites (principal); R11.2 Nausea with vomiting, unspecified; R16.1 Splenomegaly, not elsewhere classified; K74.69 Other cirrhosis of liver; E03.9 Hypothyroidism, unspecified; I48.91 Unspecified atrial fibrillation; I44.0 Atrioventricular block, first degree; R94.31 Abnormal electrocardiogram [ECG] [EKG]; J45.909 Unspecified asthma, uncomplicated; I48.92 Unspecified atrial flutter; E55.9 Vitamin D deficiency, unspecified; I95.9 Hypotension, unspecified; K76.6 Portal hypertension; I10 Essential (primary) hypertension; Z20.828 Contact with and (suspected) exposure to other viral communicable diseases; Z87.74 Personal history of (corrected) congenital malformations of heart and circulatory system; Z87.59 Personal history of other complications of pregnancy, childbirth and the puerperium; Z79.899 Other long term (current) drug therapy; Z88.8 Allergy status to other drugs, medicaments and biological substances; Z91.018 Allergy to other foods; Z95.1 Presence of aortocoronary bypass graft; Z98.890 Other specified postprocedural states; Z91.14 Patient's other noncompliance with medication regimen; Z91.128 Patient's intentional underdosing of medication regimen for other reason; T38.1X6A Underdosing of thyroid hormones and substitutes, initial encounter; Z71.89 Other specified counseling; Z88.4 Allergy status to anesthetic agent; Z82.5 Family history of asthma and other chronic lower respiratory diseases; Z80.3 Family history of malignant neoplasm of breast; Z83.438 Family history of other disorder of lipoprotein metabolism and other lipidemia; Z82.49 Family history of ischemic heart disease and other diseases of the circulatory system
CPT/HCPCS: 96372 ×2; 96375; 96361; 96374; 99285; 36415; 84439; 88108; 88305; 80053 ×3; 84443; 82042; 89050; 83690; 85025 ×3; 85610; 85730; 81001; 81025; 84702; 84157; 49083; 74177; G0378 ×3; U0003; P9047; J1650 ×2; J1885; J1170; Q9967

== ENCOUNTER 2020-06-11 17:16 | Emergency (ER) | payer OTHER ==
[2020-06-11 17:20] VITALS: BP 131/78; PULSE 92; RESP 118; TEMP 98.1
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
== END 2020-06-11 18:07 | disposition home or self-care (01) ==
LOC: EC 17:16
DX: N64.4 Mastodynia (principal); I48.92 Unspecified atrial flutter; Z88.8 Allergy status to other drugs, medicaments and biological substances; Z91.010 Allergy to peanuts; Z95.1 Presence of aortocoronary bypass graft
CPT/HCPCS: 99283

== ENCOUNTER 2020-07-01 16:35 | Emergency (ER) | payer OTHER ==
[2020-07-01 16:46] VITALS: BP 101/70; PULSE 91; RESP 18; TEMP 97.9
--- NOTE | 2020-07-01 16:59 | ED ---
General Adult HPI - General Chief complaint: Nausea/Vomiting/Diarrhea Stated complaint: SOB Time Seen by Provider: 07/01/20 16:47 Source: patient Mode of arrival: ambulatory Limitations: no limitations - History of Present Illness Initial comments: Dictation was produced using [employer] dictation software. please excuse any grammatical, word or spelling errors. This patient was cared for during a federal and state declared state of emergency secondary to Covid 19 Chief Complaint: 39-year-old female presents with request for Covid testing History of Present Illness: Patient 39-year-old female she has multiple comorbidities. She is exposed her on on [place]. She was told by her aunt that she was experiencing Covid symptoms. She states the same day she was exposed her on she's been experiencing symptoms. Patient states she has shortness of breath cough headache and vomiting. She states her emesis nondistended bloody. Patient has a sore throat. She denies any loss of taste are worse now. The ROS documented in this emergency department record has been reviewed and confirmed by me. Those systems with pertinent positive or negative responses have been documented in the HPI. All other systems are other negative and/or noncontributory. PHYSICAL EXAM: General Impression: Alert and oriented x3, not in acute distress HEENT: Normocephalic atraumatic, extra-ocular movements intact, pupils equal and reactive to light bilaterally, mucous membranes moist. Cardiovascular: Heart regular rate and rhythm Chest: Able to complete full sentences, no retractions, no tachypnea Abdomen: abdomen soft, non-tender, non-distended, no organomegaly Musculoskeletal: Pulses present and equal in all extremities, no peripheral edema Motor: no focal deficits noted Neurological: CN II-XII grossly intact, no focal motor or sensory deficits noted Skin: Intact with no visualized rashes Psych: Normal affect and mood ED course: 39-year-old male presents to the emergency department for Covid testing signs upon arrival are within acceptable limits. Laboratory evaluation obtained. CBC, metabolic panel chronic virus test negati ve. Chest x-ray is nonacute. No acute processes noted. She observed the emergency department for one stable medical condition. Patient told to follow- up with a primary care physician. Patient told to quarantine. She is advised to follow-up with her primary care physician for further care. - Related Data Previous Rx's Medication Instructions Recorded Famotidine [Pepcid] 20 mg PO BID #12 tablet 01/26/20 Enoxaparin [Lovenox] 80 mg SQ DAILY syringe 02/07/20 Furosemide [Lasix] 40 mg PO BID@0900,1600 tab 02/07/20 Levothyroxine Sodium [Synthroid] 75 mcg PO DAILY@0630 tab 02/07/20 Sotalol [Betapace] 120 mg PO BID tab 02/07/20 Spironolactone [Aldactone] 50 mg PO DAILY tab 02/07/20 Allergies Allergy/AdvReac Type Severity Reaction Status Date / Time warfarin sodium Allergy Anaphylaxis Verified 07/01/20 16:46 [From Coumadin] peas AdvReac Diarrhea Verified 07/01/20 16:46 Review of Systems ROS Statement: Those systems with pertinent positive or pertinent negative responses have been documented in the HPI. ROS Other: All systems not noted in ROS Statement are negative. 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 7, Past Anesthesia/Blood Transfusion Reactions: No Reported Reaction Additional Past Anesthesia/Blood Transfusion Reaction / Comment(s): Patient s tates she is allergic to anesthesia during 2018 heart cath -- had numbness in right face and left hand, states anesthesiologists indicated if next procedure, would have to be adjusted Past Psychological History: No Psychological Hx Reported Smoking Status: Never smoker Past Alcohol Use History: None Reported Past Drug Use History: None Reported - Past Family History Mother Family Medical History: Asthma, Cancer, Hyperlipidemia, Hypertension Additional Family Medical History / Comment(s): Mother had breast CA at age 52 Brother(s) Family Medical History: Asthma Father Family Medical History: Asthma General Exam Limitations: no limitations Course Vital Signs 07/01/20 16:43 Temperature 97.9 F Pulse Rate 91 Respiratory 18 Rate Blood Pressure 101/70 O2 Sat by Pulse 98 Oximetry Medical Decision Making - Lab Data Result diagrams: 07/01/20 16:52 07/01/20 16:52 Lab Results 07/01/20 07/01/20 07/01/20 Range/Units 16:52 16:52 16:52 WBC 6.9 (3.8-10.6) k/uL RBC 5.40 (3.80-5.40) m/uL Hgb 15.5 (11.4-16.0) gm/dL Hct 45.7 (34.0-46.0) % MCV 84.5 (80.0-100.0) fL MCH 28.6 (25.0-35.0) pg MCHC 33.9 (31.0-37.0) g/dL RDW 13.9 (11.5-15.5) % Plt Count 156 (150-450) k/uL MPV 8.7 Neutrophils % 79 % Lymphocytes % 10 % Monocytes % 6 % Eosinophils % 3 % Basophils % 1 % Neutrophils # 5.4 (1.3-7.7) k/uL Lymphocytes # 0.7 L (1.0-4.8) k/uL Monocytes # 0.4 (0-1.0) k/uL Eosinophils # 0.2 (0-0.7) k/uL Basophils # 0.1 (0-0.2) k/uL Sodium 137 (137-145) mmol/L Potassium 4.0 (3.5-5.1) mmol/L Chloride 105 (98-107) mmol/L Carbon Dioxide 23 (22-30) mmol/L Anion Gap 9 mmol/L BUN 12 (7-17) mg/dL Creatinine 0.63 (0.52-1.04) mg/dL Est GFR (CKD-EPI)AfAm >90 (>60 ml/min/1.73 sqM) Est GFR (CKD-EPI)NonAf >90 (>60 ml/min/1.73 sqM) Glucose 90 (74-99) mg/dL Calcium 9.5 (8.4-10.2) mg/dL C-Reactive Protein 7.0 (<10.0) mg/L Coronavirus (PCR) Not Detected (Not Detectd) Disposition Clinical Impression: COVID-19 Disposition: HOME SELF-CARE Condition: Good Instructions (If sedation given, give patient instructions): Viral Pneumonia (ED) Additional Instructions: Today you were evaluated for symptoms consistent with upper respiratory infection. There is concern that perhaps your symptomatology may represent Covid 19. Your are stable for discharge, however it is instructed to to seek immediate medical attention especially if you develop worsening symptoms especially respiratory distress. In the meantime please remain in quarantine for 14 days. For any other questions please contact [facility] for here in emergency department or [facility] at [phone] Is patient prescribed a controlled substance at d/c from ED?: No Referrals: Devaughn Marino MD [Primary Care Provider] - 1-2 days Time of Disposition: 17:35
[2020-07-01 17:10] LABS: Basophils # (A) 0.1 k/uL (0-0.2); Basophils % (A) 1 %; Eosinophils # (A) 0.2 k/uL (0-0.7); Eosinophils % (A) 3 %; HCT 45.7 % (34.0-46.0); HGB 15.5 gm/dL (11.4-16.0); Lymphocytes # (A) 0.7 k/uL (1.0-4.8); Lymphocytes % (A) 10 %; MCH 28.6 pg (25.0-35.0); MCHC 33.9 g/dL (31.0-37.0); MCV 84.5 fL (80.0-100.0); Mean Platelet Volume 8.7; Monocytes # (A) 0.4 k/uL (0-1.0); Monocytes % (A) 6 %; Neutrophils # (A) 5.4 k/uL (1.3-7.7); Neutrophils % (A) 79 %; Platelet Count 156 k/uL (150-450); RDW 13.9 % (11.5-15.5); WBC 6.9 k/uL (3.8-10.6)
[2020-07-01 17:27] LABS: African American GFR (CKD) >90 (>60 ml/min/1.73 sqM); Anion Gap 9 mmol/L; Blood Urea Nitrogen 12 mg/dL (7-17); Calcium 9.5 mg/dL (8.4-10.2); Carbon Dioxide 23 mmol/L (22-30); Chloride 105 mmol/L (98-107); Glucose 90 mg/dL (74-99); Non-African American GFR(CKD) >90 (>60 ml/min/1.73 sqM); Sodium 137 mmol/L (137-145)
--- NOTE | 2020-07-01 17:28 | XR ---
EXAMINATION TYPE: XR chest 1V portable DATE OF EXAM: 07/01/2020 COMPARISON: 11/03/2019 HISTORY: Chest pain TECHNIQUE: Single view FINDINGS: Heart is borderline enlarged. There are sternal wires. There is no heart failure nor conflu ent pneumonic infiltrate. There is mild coarsening of interstitial markings. There is no definite ple ural effusion. IMPRESSION: Minimal fibrotic changes. No acute lung disease. No change compared to old exam.
== END 2020-07-01 17:44 | disposition home or self-care (01) ==
LOC: EC 16:35
DX: Z20.828 Contact with and (suspected) exposure to other viral communicable diseases (principal); Z88.8 Allergy status to other drugs, medicaments and biological substances; Z91.018 Allergy to other foods
CPT/HCPCS: 36415; 71045; 80048; 85025; 86140; 87635; 99285

== ENCOUNTER 2020-09-20 16:58 | Emergency (ER) | payer OTHER ==
[2020-09-20 17:13] VITALS: BP 127/88; PULSE 79; RESP 18; TEMP 97.9
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
== END 2020-09-20 17:48 | disposition home or self-care (01) ==
LOC: EC 16:58
DX: Z20.822 Contact with and (suspected) exposure to COVID-19 (principal); J45.909 Unspecified asthma, uncomplicated; E07.9 Disorder of thyroid, unspecified; Z95.1 Presence of aortocoronary bypass graft
CPT/HCPCS: 99283; U0003; U0005

== ENCOUNTER 2020-11-13 17:26 | Emergency (ER) | payer OTHER ==
[2020-11-13] MEDS ORDERED: methylPREDNISolone SOD SUCCI 125 MG/2 ML VIAL IM STA (19:24)
--- NOTE | 2020-11-13 19:27 | ED ---
General Adult HPI - General Chief complaint: Skin/Abscess/Foreign Body Stated complaint: rash Time Seen by Provider: 11/13/20 19:05 Source: patient Mode of arrival: ambulatory Limitations: no limitations - History of Present Illness Initial comments: 40-year-old female with a past medical history of asthma, atrial fibrillation, liver disease, thyroid disorder, heart valve replacement presents to the emergency room for a chief complaint of rash. Patient reports she has had a rash since 1 week ago. States it is very itchy. States it is on her arms and chest. Patient denies fevers. Denies any new medications or new detergents. Patient denies any swelling of the lips tongue or throat.Patient has no other complaints at this time including shortness of breath, chest pain, abdominal pain, nausea or vomiting, headache, or visual changes. - Related Data Previous Rx's Medication Instructions Recorded Famotidine [Pepcid] 20 mg PO BID #12 tablet 01/26/20 Enoxaparin [Lovenox] 80 mg SQ DAILY syringe 02/07/20 Furosemide [Lasix] 40 mg PO BID@0900,1600 tab 02/07/20 Levothyroxine Sodium [Synthroid] 75 mcg PO DAILY@0630 tab 02/07/20 Sotalol [Betapace] 120 mg PO BID tab 02/07/20 Spironolactone [Aldactone] 50 mg PO DAILY tab 02/07/20 Allergies Allergy/AdvReac Type Severity Reaction Status Date / Time warfarin sodium Allergy Anaphylaxis Verified 11/13/20 18:17 [From Coumadin] peas AdvReac Diarrhea Verified 11/13/20 18:17 Review of Systems ROS Statement: Those systems with pertinent positive or pertinent negative responses have been documented in the HPI. ROS Other: All systems not noted in ROS Statement are negative. 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 7, Past Anesthesia/Blood Transfusion Reactions: No Reported Reaction Additional Past Anesthesia/Blood Transfusion Reaction / Comment(s): Patient states she is allergic to anesthesia during 2018 heart cath -- had numbness in right face and left hand, states anesthesiologists indicated if next procedure, would have to be adjusted Past Psychological History: No Psychological Hx Reported Smoking Status: Never smoker Past Alcohol Use History: None Reported Past Drug Use History: None Reported - Past Family History Mother Family Medical History: Asthma, Cancer, Hyperlipidemia, Hypertension Additional Family Medical History / Comment(s): Mother had breast CA at age 52 Brother(s) Family Medical History: Asthma Father Family Medical History: Asthma General Exam Limitations: no limitations General appearance: alert, in no apparent distress Head exam: Present: atraumatic, normocephalic, normal inspection Eye exam: Present: normal appearance, PERRL, EOMI. Absent: scleral icterus, conjunctival injection, periorbital swelling ENT exam: Present: normal exam, mucous membranes moist Neck exam: Present: normal inspection. Absent: tenderness, meningismus, lymphadenopathy Respiratory exam: Present: normal lung sounds bilaterally. Absent: respiratory distress, wheezes, rales, rhonchi, stridor Cardiovascular Exam: Present: regular rate, normal rhythm, normal heart sounds. Absent: systolic murmur, diastolic murmur, rubs, gallop, clicks GI/Abdominal exam: Present: soft, normal bowel sounds. Absent: distended, tenderness, guarding, rebound, rigid Skin exam: Present: rash (Patient has erythematous blanchable plaques noted to the arms chest and neck consistent with urticaria.) Course Vital Signs 11/13/20 18:13 Temperature 97.7 F Pulse Rate 79 Respiratory 20 Rate Blood Pressure 105/73 O2 Sat by Pulse 96 Oximetry Medical Decision Making - Medical Decision Making Patient has erythematous blanchable raised plaques causing pruritus on the arms and chest consistent with urticaria. She was given a steroid shot and prescription. She was directed to take Benadryl. She will follow up closely with her doctor. She wishes to follow-up with her doctor rather than a curing finisher at this time. She will return for any worsening symptoms. I discussed this case with attending Dr. Sutherland who agrees with this assessment and treatment plan. Disposition Clinical Impression: Rash Disposition: HOME SELF-CARE Condition: Good Instructions (If sedation given, give patient instructions): Acute Rash (ED) Additional Instructions: Please take steroid as directed. Take Benadryl 3-4 times per day. Follow-up with your doctor. Return to the emergency room for any worsening symptoms. Is patient prescribed a controlled substance at d/c from ED?: No Referrals: Devaughn Marino MD [Primary Care Provider] - 1-2 days Time of Disposition: 19:27
[2020-11-13 19:48] VITALS: BP 99/66; PULSE 65; RESP 18; TEMP 97.8
== END 2020-11-13 19:59 | disposition home or self-care (01) ==
LOC: EC 17:26
DX: R21 Rash and other nonspecific skin eruption (principal); I48.91 Unspecified atrial fibrillation; J45.909 Unspecified asthma, uncomplicated; E07.9 Disorder of thyroid, unspecified; Z95.1 Presence of aortocoronary bypass graft; Z95.2 Presence of prosthetic heart valve
CPT/HCPCS: 99282; 96372; J2930

== ENCOUNTER 2020-12-06 14:45 | Inpatient (IN) | payer OTHER ==
--- NOTE | 2020-12-06 16:06 | ED ---
General Adult HPI - General Chief complaint: Arrhythmia/Palpitations Stated complaint: palpitations Time Seen by Provider: 12/06/20 15:50 Source: patient Limitations: no limitations - History of Present Illness Initial comments: Patient presents to the ED with her boyfriend for evaluation. Patient states that she was laying down about 3-4 hours ago when she suddenly developed rapid heart palpitations, which have not resolved ever since. Patient has a history of congenital heart disease and cirrhosis, and she states that she has had similar episodes of palpitations in the past. Patient states that she is supposed to be taking multiple medications, including heart medications, but she has not been taking them for the past 2 years by her own choice. Patient also states that she has been attempting to get , and she states that she has had diffuse abdominal fullness for the past couple of days. Patient states that her most recent test was negative. Patient admits to feeling somewhat dyspneic and dizzy since her palpitations began. Patient denies having any pain to me. Patient denies trauma or injury, fever or chills, headache, focal numbness/weakness/neuro deficit, chest pain or pressure, cough or cold symptoms, syncope, nausea/vomiting, diarrhea or constipation, bloody or melanotic stool, dysuria/hematuria/urinary frequency/urinary symptoms, vaginal bleeding or discharge, leg or calf swelling or pain, or any other symptoms or complaints. - Related Data Home Medications Medication Instructions Recorded Confirmed No Known Home Medications 12/06/20 12/06/20 Allergies Allergy/AdvReac Type Severity Reaction Status Date / Time warfarin sodium Allergy Anaphylaxis Verified 12/06/20 17:21 [From Coumadin] peas AdvReac Diarrhea Verified 12/06/20 17:21 Review of Systems ROS Statement: Those systems with pertinent positive or pertinent negative responses have been documented in the HPI. ROS Other: All systems not noted in ROS Statement are negative. 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 7, Past Anesthesia/Blood Transfusion Reactions: No Reported Reaction Additional Past Anesthesia/Blood Transfusion Reaction / Comment(s): Patient states she is allergic to anesthesia during 2018 heart cath -- had numbness in right face and left hand, states anesthesiologists indicated if next procedure, would have to be adjusted Past Psychological History: No Psychological Hx Reported Smoking Status: Never smoker Past Alcohol Use History: None Reported Past Drug Use History: None Reported - Past Family History Mother Family Medical History: Asthma, Cancer, Hyperlipidemia, Hypertension Additional Family Medical History / Comment(s): Mother had breast CA at age 52 Brother(s) Family Medical History: Asthma Father Family Medical History: Asthma General Exam Limitations: no limitations Head exam: Present: atraumatic, normocephalic Eye exam: Present: normal appearance, PERRL, other (+ Strabismus) ENT exam: Present: mucous membranes moist Neck exam: Present: other (Trachea is in midline) Respiratory exam: Present: normal lung sounds bilaterally. Absent: respiratory distress, wheezes, rales, rhonchi, stridor Cardiovascular Exam: Present: normal rhythm, tachycardia, normal heart sounds, other (Normal radial pulses bilaterally) GI/Abdominal exam: Present: soft, normal bowel sounds. Absent: distended, tenderness, guarding Extremities exam: Present: other (Negative Homans sign bilaterally). Absent: tenderness, pedal edema, calf tenderness Back exam: Absent: CVA tenderness (R), CVA tenderness (L) Neurological exam: Present: alert, oriented X3. Absent: motor sensory deficit Psychiatric exam: Present: normal affect, normal mood Skin exam: Present: warm, dry, intact, normal color Course Vital Signs 12/06/20 12/06/20 12/06/20 15:41 16:21 17:16 Temperature 97.4 F L Pulse Rate 170 H 170 H 82 Respiratory 22 16 16 Rate Blood Pressure 109/89 116/85 101/70 O2 Sat by Pulse 95 97 99 Oximetry 12/06/20 12/06/20 18:22 19:06 Temperature Pulse Rate 165 H 65 Respiratory 16 16 Rate Blood Pressure 108/79 92/65 O2 Sat by Pulse 99 99 Oximetry - Reevaluation(s) Reevaluation #1: 12/06/20 16:18 Patient was given adenosine 12 mg IV while I was at bedside. Patient's EKG rhythm strip demonstrated atrial flutter with variable AV block as her heart rate slowed. Patient quickly returned to a heart rate in the 160s. Diltiazem 20mg IV has been ordered for rate control. 12/06/20 16:45 Patient has received IV diltiazem in the ED. Patient remains in atrial flutter on the shelter monitor, but her heart rate has now improved to the 80s. 12/06/20 17:45 I have discussed the patient's case and test results over the phone with her mother/legal guardian Soo. She agrees with my recommendation for hospital admission. Patient and boyfriend are also aware the patient's test results, and patient agrees with hospital admission at this time. Patient denies development of any new symptoms while in the ED. Patient states that she currently feels better, although her heart rate has now increased to the 150s (still in atrial flutter). 12/06/20 17:47 Case, H&P, test results and ED management thus far were discussed with Dr. Chicas (cardiology). He recommends starting the patient on an IV diltiazem drip. He agrees with hospital admission. He has no further recommendations at this time. 12/06/20 17:50 Case, H&P, test results, ED management thus far and my discussion with Dr. Chicas as above were discussed with Dr. Marino. He accepts hospital admission. He recommends also starting the patient on an IV heparin drip. He has no further recommendations at this time. 12/06/20 19:16 Patient has now cardioverted to sinus bradycardia with heart rate in the high 50s. EKG Findings - EKG Comments: EKG Findings:: #1 Supraventricular tachycardia, ventricular rate of 165 bpm, normal QRS duration, marked inferior ST and T-wave abnormality. #2 sinus bradycardia with borderline first-degree AV block, ventricular rate of 57 bpm, no ectopy, IN interval of 202 ms, QRS duration, normal QT interval, nonspecific ST and T-wave abnormality Medical Decision Making - Medical Decision Making Patient presented to the ED in rapid atrial flutter. Patient's heart rate improved with a dose of IV diltiazem in the ED, but then increased again. Patient was started on an IV diltiazem drip, as well as an IV heparin drip. Patient's mother/legal guardian was notified, and she agrees with hospital admission for further evaluation and cardiac monitoring. Dr. Chicas (cardiology) was contacted from the ED, and he recommended IV diltiazem drip. Dr. Marino has accepted hospital admission. Dr. Marino also recommended IV heparin drip. Patient's TSH is elevated, and a free thyroxine level is pending at this time. Patient's abdomen remains soft and nontender on examination. Patient is afebrile and without leukocytosis. Patient's test is negative. - Lab Data Result diagrams: 12/06/20 16:23 12/06/20 16:23 Lab Results 12/06/20 12/06/20 12/06/20 Range/Units 16:23 16:23 16:23 WBC 5.9 (3.8-10.6) k/uL RBC 5.72 H (3.80-5.40) m/uL Hgb 16.4 H (11.4-16.0) gm/dL Hct 48.3 H (34.0-46.0) % MCV 84.5 (80.0-100.0) fL MCH 28.6 (25.0-35.0) pg MCHC 33.9 (31.0-37.0) g/dL RDW 14.1 (11.5-15.5) % Plt Count 160 (150-450) k/uL MPV 9.2 Neutrophils % 75 % Lymphocytes % 13 % Monocytes % 6 % Eosinophils % 2 % Basophils % 1 % Neutrophils # 4.4 (1.3-7.7) k/uL Lymphocytes # 0.8 L (1.0-4.8) k/uL Monocytes # 0.4 (0-1.0) k/uL Eosinophils # 0.1 (0-0.7) k/uL Basophils # 0.1 (0-0.2) k/uL PT 11.8 (9.0-12.0) sec INR 1.1 (<1.2) APTT 24.7 (22.0-30.0) sec Sodium 138 (137-145) mmol/L Potassium 4.1 (3.5-5.1) mmol/L Chloride 107 (98-107) mmol/L Carbon Dioxide 17 L (22-30) mmol/L Anion Gap 14 mmol/L BUN 15 (7-17) mg/dL Creatinine 0.88 (0.52-1.04) mg/dL Est GFR (CKD-EPI)AfAm >90 (>60 ml/min/1.73 sqM) Est GFR (CKD-EPI)NonAf 83 (>60 ml/min/1.73 sqM) Glucose 91 (74-99) mg/dL Calcium 10.0 (8.4-10.2) mg/dL Magnesium 2.1 (1.6-2.3) mg/dL Total Bilirubin 1.8 H (0.2-1.3) mg/dL AST 37 H (14-36) U/L ALT 16 (4-34) U/L Alkaline Phosphatase 87 (38-126) U/L Troponin I (0.000-0.034) ng/mL Total Protein 8.6 H (6.3-8.2) g/dL Albumin 5.1 H (3.5-5.0) g/dL TSH 17.700 H (0.465-4.680) mIU/L HCG, Qual Not Detected Urine Color Urine Appearance (Clear) Urine pH (5.0-8.0) Ur Specific [place] (1.001-1.035) Urine Protein (Negative) Urine Glucose (UA) (Negative) Urine Ketones (Negative) Urine Blood (Negative) Urine Nitrite (Negative) Urine Bilirubin (Negative) Urine Urobilinogen (<2.0) mg/dL Ur Leukocyte Esterase (Negative) Urine RBC (0-5) /hpf Urine WBC (0-5) /hpf Ur Squamous Epith Cells (0-4) /hpf Urine Bacteria (None) /hpf Urine Mucus (None) /hpf 12/06/20 12/06/20 Range/Units 16:23 17:08 WBC (3.8-10.6) k/uL RBC (3.80-5.40) m/uL Hgb (11.4-16.0) gm/dL Hct (34.0-46.0) % MCV (80.0-100.0) fL MCH (25.0-35.0) pg MCHC (31.0-37.0) g/dL RDW (11.5-15.5) % Plt Count (150-450) k/uL MPV Neutrophils % % Lymphocytes % % Monocytes % % Eosinophils % % Basophils % % Neutrophils # (1.3-7.7) k/uL Lymphocytes # (1.0-4.8) k/uL Monocytes # (0-1.0) k/uL Eosinophils # (0-0.7) k/uL Basophils # (0-0.2) k/uL PT (9.0-12.0) sec INR (<1.2) APTT (22.0-30.0) sec Sodium (137-145) mmol/L Potassium (3.5-5.1) mmol/L Chloride (98-107) mmol/L Carbon Dioxide (22-30) mmol/L Anion Gap mmol/L BUN (7-17) mg/dL Creatinine (0.52-1.04) mg/dL Est GFR (CKD-EPI)AfAm (>60 ml/min/1.73 sqM) Est GFR (CKD-EPI)NonAf (>60 ml/min/1.73 sqM) Glucose (74-99) mg/dL Calcium (8.4-10.2) mg/dL Magnesium (1.6-2.3) mg/dL Total Bilirubin (0.2-1.3) mg/dL AST (14-36) U/L ALT (4-34) U/L Alkaline Phosphatase (38-126) U/L Troponin I <0.012 (0.000-0.034) ng/mL Total Protein (6.3-8.2) g/dL Albumin (3.5-5.0) g/dL TSH (0.465-4.680) mIU/L HCG, Qual Urine Color Yellow Urine Appearance Clear (Clear) Urine pH 6.0 (5.0-8.0) Ur Specific [place] 1.017 (1.001-1.035) Urine Protein 2+ H (Negative) Urine Glucose (UA) Negative (Negative) Urine Ketones Trace H (Negative) Urine Blood Small H (Negative) Urine Nitrite Negative (Negative) Urine Bilirubin Negative (Negative) Urine Urobilinogen <2.0 (<2.0) mg/dL Ur Leukocyte Esterase Negative (Negative) Urine RBC 1 (0-5) /hpf Urine WBC 2 (0-5) /hpf Ur Squamous Epith Cells 2 (0-4) /hpf Urine Bacteria Rare H (None) /hpf Urine Mucus Rare H (None) /hpf - Radiology Data Radiology results: report reviewed (Chest x-ray: There is probably cardiomegaly, no acute lung disease, no adverse change) Critical Care Time Critical Care Time: Yes Total Critical Care Time: 60 Disposition Clinical Impression: Atrial flutter Disposition: ADMITTED IP TO THIS HOSP Condition: Stable Is patient prescribed a controlled substance at d/c from ED?: No Time of Disposition: 17:53
[2020-12-06] MEDS ORDERED: DILTIAZEM 5 MG/ML 5 ML VIAL IVP STA (16:18)
[2020-12-06] MEDS ORDERED: SODIUM CHLORIDE 0.9% 500 ML 500 ML IV STA (16:21)
[2020-12-06] MEDS ORDERED: ADENOSINE 3 MG/ML 2 ML VIAL IVP STA (16:25)
[2020-12-06 16:37] LABS: Basophils # (A) 0.1 k/uL (0-0.2); Basophils % (A) 1 %; Eosinophils # (A) 0.1 k/uL (0-0.7); Eosinophils % (A) 2 %; HCT 48.3 % (34.0-46.0); HGB 16.4 gm/dL (11.4-16.0); Lymphocytes # (A) 0.8 k/uL (1.0-4.8); Lymphocytes % (A) 13 %; MCH 28.6 pg (25.0-35.0); MCHC 33.9 g/dL (31.0-37.0); MCV 84.5 fL (80.0-100.0); Mean Platelet Volume 9.2; Monocytes # (A) 0.4 k/uL (0-1.0); Monocytes % (A) 6 %; Neutrophils # (A) 4.4 k/uL (1.3-7.7); Neutrophils % (A) 75 %; Platelet Count 160 k/uL (150-450); RBC 5.72 m/uL (3.80-5.40); RDW 14.1 % (11.5-15.5); WBC 5.9 k/uL (3.8-10.6)
[2020-12-06 16:43] LABS: HCG,Qualitative Serum Not Detected
[2020-12-06 16:45] LABS: ALT 16 U/L (4-34); AST 37 U/L (14-36); African American GFR (CKD) >90 (>60 ml/min/1.73 sqM); Albumin 5.1 g/dL (3.5-5.0); Alkaline Phosphatase 87 U/L (38-126); Anion Gap 14 mmol/L; Blood Urea Nitrogen 15 mg/dL (7-17); Carbon Dioxide 17 mmol/L (22-30); Chloride 107 mmol/L (98-107); Glucose 91 mg/dL (74-99); Magnesium 2.1 mg/dL (1.6-2.3); Non-African American GFR(CKD) 83 (>60 ml/min/1.73 sqM); Potassium 4.1 mmol/L (3.5-5.1); Sodium 138 mmol/L (137-145); Total Bilirubin 1.8 mg/dL (0.2-1.3); Total Protein 8.6 g/dL (6.3-8.2)
[2020-12-06 16:50] LABS: INR 1.1 (<1.2); Partial Thromboplastin Time 24.7 sec (22.0-30.0); Prothrombin Time 11.8 sec (9.0-12.0)
--- NOTE | 2020-12-06 17:11 | XR ---
EXAMINATION TYPE: XR chest 1V portable DATE OF EXAM: 12/06/2020 COMPARISON: 07/01/2020 HISTORY: Chest pain TECHNIQUE: Single view FINDINGS: Heart is mildly enlarged. There is no heart failure. There are no hilar masses. Costophreni c angles are clear. There are mediastinal surgical clips. There are chest leads. IMPRESSION: There is probably cardiomegaly. No acute lung disease. No adverse change.
[2020-12-06 17:19] LABS: Appearance,Urine Clear (Clear); Bacteria,Urine Rare /hpf; Bilirubin,Urine Negative (Negative); Blood,Urine Small (Negative); Color,Urine Yellow; Glucose,Urine (UA) Negative (Negative); Ketones,Urine Trace (Negative); Leukocyte Esterase,Urine Negative (Negative); Mucus,Urine Rare /hpf; Nitrite,Urine Negative (Negative); Protein,Urine 2+ (Negative); RBC,Urine 1 /hpf (0-5); Specific Gravity,Urine 1.017 (1.001-1.035); Squamous Epithelial Cell,Urine 2 /hpf (0-4); Urobilinogen,Urine <2.0 mg/dL (<2.0); WBC,Urine 2 /hpf (0-5)
[2020-12-06] MEDS ORDERED: HEPARIN SODIUM 1,000 UN/ML (10ML VL) IV ONE (17:51)
[2020-12-06] MEDS ORDERED: HEPARIN SODIUM 1,000 UN/ML (10ML VL) IV PRN (17:51)
[2020-12-06] MEDS ORDERED: HEPARIN SOD,PORK IN 0.45% NACL 25,000 UNIT in 0.45% NACL 1 250ML.BAG IV SCH (18:00)
[2020-12-06] MEDS: DILTIAZEM 125 MG in SODIUM CHLORIDE 0.9% 100 ML IV SCH (18:18)
[2020-12-07] MEDS: DILTIAZEM 125 MG in SODIUM CHLORIDE 0.9% 100 ML IV SCH (07:56)
[2020-12-07] MEDS: HYDROmorphone 0.5 MG/0.5 ML SYRINGE IVP PRN ×2 (08:48→19:39)
[2020-12-07 09:42] LABS: Basophils % (A) 1 %; Eosinophils # (A) 0.1 k/uL (0-0.7); Eosinophils % (A) 3 %; HCT 44.3 % (34.0-46.0); HGB 14.7 gm/dL (11.4-16.0); Lymphocytes # (A) 0.8 k/uL (1.0-4.8); Lymphocytes % (A) 20 %; MCH 28.5 pg (25.0-35.0); MCHC 33.1 g/dL (31.0-37.0); Mean Platelet Volume 9.2; Monocytes # (A) 0.3 k/uL (0-1.0); Monocytes % (A) 7 %; Neutrophils # (A) 2.7 k/uL (1.3-7.7); Neutrophils % (A) 68 %; Platelet Count 131 k/uL (150-450); RBC 5.15 m/uL (3.80-5.40); WBC 3.9 k/uL (3.8-10.6)
[2020-12-07 09:51] LABS: INR 1.3 (<1.2); Partial Thromboplastin Time 54.5 sec (22.0-30.0); Prothrombin Time 12.9 sec (9.0-12.0)
[2020-12-07 09:53] LABS: ALT 14 U/L (4-34); AST 30 U/L (14-36); African American GFR (CKD) >90 (>60 ml/min/1.73 sqM); Albumin 3.9 g/dL (3.5-5.0); Alkaline Phosphatase 65 U/L (38-126); Anion Gap 8 mmol/L; Blood Urea Nitrogen 14 mg/dL (7-17); Calcium 8.8 mg/dL (8.4-10.2); Carbon Dioxide 17 mmol/L (22-30); Chloride 113 mmol/L (98-107); Glucose 98 mg/dL (74-99); Non-African American GFR(CKD) 87 (>60 ml/min/1.73 sqM); Potassium 4.4 mmol/L (3.5-5.1); Sodium 138 mmol/L (137-145); Total Bilirubin 1.8 mg/dL (0.2-1.3); Total Protein 6.9 g/dL (6.3-8.2)
[2020-12-07] MEDS: PANTOPRAZOLE 40 MG TABLET PO SCH (11:37)
[2020-12-07] MEDS: APIXABAN 5 MG TAB PO SCH ×2 (11:37→23:08)
[2020-12-07] MEDS: METOPROLOL TARTRATE 25 MG TAB PO SCH ×2 (11:37→23:09)
--- NOTE | 2020-12-07 13:04 | CONS ---
CONSULTATION HISTORY: Mrs. Rizzo is a 40-year-old female with a known history of Fontan surgery for pulmonic atresia, history of paroxysmal atrial flutter, history of liver cirrhosis status post paracentesis, who has [facility] the past as well as by Dr. Nix, but has not seen anybody in over 2 years, has not been taking any medication, presented to the emergency room with symptoms of palpitations, dizziness and shortness of breath. She was in atrial flutter with rapid ventricular response and back in sinus mechanism at this time. She denies any chest pain. She denies any peripheral edema. No PND. No orthopnea. She has not had any paracentesis recently. In the past, her left ventricular systolic function was preserved. The patient denies any recent nausea or vomiting. She has run out of her medication, was taking no medication at the time of presentation. She has no history of smoking and has no documented history of diabetes. MEDICATION: At the time of admission were none. REVIEW OF SYSTEMS: RESPIRATORY SYSTEM: She had dyspnea on exertion. She has no recent wheezing or cough. GI SYSTEM: No recent GI bleeding. No peptic ulcer disease. She has prior history of paracentesis. NERVOUS SYSTEM: No stroke or seizure. PHYSICAL EXAMINATION: A 40-year-old female, alert, oriented, in no apparent distress. Blood pressure 116/80 with a heart rate in the 80s. HEAD: Normocephalic. Eyes sclerae anicteric. NECK: Good upstroke. No jugular venous distention. LUNGS: Clear to auscultation. HEART: Regular rhythm. S1, S2 with systolic murmur at the left sternal border and a holosystolic murmur in the apex. ABDOMEN: Soft, nontender. Positive bowel sounds. EXTREMITIES: No edema. LAB DATA: Revealed an INR of 1.3, BUN and creatinine of 14.8. Her TSH was 17.7. Troponin less than 0.012. Her free T4 was 1.28. Her hemoglobin was 14.7, white blood cell of 3.9. Her EKG initially showed atrial flutter with 2-1 conduction, rate of 165. Subsequently, she is in sinus mechanism with minor nonspecific ST-T wave changes rate of 57. Her chest x-ray shows no acute infiltrate. IMPRESSION: 1. Paroxysmal atrial flutter in a patient with history of congenital heart disease. 2. Medical noncompliance. 3. 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 4. Prior history of liver cirrhosis and ascites status post paracentesis, last time 2 years ago according to her. RECOMMENDATIONS: From the cardiac standpoint, I will stop her IV Cardizem and IV heparin. I will start her on oral low-dose oral beta stanley as well as an anticoagulation. Increase her level of activity. Obtain echocardiogram with Doppler. Depending on her progress further recommendation. If she remains stable, she may be able to be discharged home and followed as an outpatient with Dr. Nix. Thank you for this consult. Will follow with you. MMODL / IJN: [id number] /
--- NOTE | 2020-12-07 15:16 | P.HPIM ---
History of Present Illness H&P Date: 12/07/20 Asuncion Rizzo, 40-year-old female who presented to [facility] emergency room with a chief complaint of palpitation with feeling of fast heart rate, she was evaluated in the emergency room, vital examination on presentation revealed a temperature of 97.4 pulse 170 respiration 22 blood pressure 109/89 pulse ox 95% on room air, patient was given adenosine 12 mg IV subsequently her EKG revealed atrial flutter, she was started on IV Cardizem drip and IV heparin and was admitted to telemetry floor cardiology consultation was requested. Patient stated that recently she was trying to become , so she decided to stop all her medications, including her cardiac medications and her thyroid medications. Patient has a known history of congenital heart disease, and history of liver cirrhosis, she had history of atrial fibrillation in the past and was maintained on Cardizem, her non categorical preschool teacher in [place] also put her on Lovenox injections daily to avoid oral anticoagulation due to her history of liver cirrhosis. 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 7, Past Anesthesia/Blood Transfusion Reactions: Previous Problems w/ Anesthesia Additional Past Anesthesia/Blood Transfusion Reaction / Comment(s): Patient states she is allergic to anesthesia during 2018 heart cath -- had numbness in right face and left hand, states anesthesiologists indicated if next procedure, would have to be adjusted Past Psychological History: No Psychological Hx Reported Smoking Status: Never smoker Past Alcohol Use History: None Reported Past Drug Use History: None Reported - Past Family History Mother Family Medical History: Asthma, Cancer, Hyperlipidemia, Hypertension Additional Family Medical History / Comment(s): Mother had breast CA at age 52 Brother(s) Family Medical History: Asthma Father Family Medical History: Asthma Medications and Allergies Home Medications Medication Instructions Recorded Confirmed Type No Known Home Medications 12/06/20 12/06/20 History Allergies Allergy/AdvReac Type Severity Reaction Status Date / Time warfarin sodium Allergy Anaphylaxis Verified 12/06/20 17:21 [From Coumadin] peas AdvReac Diarrhea Verified 12/06/20 17:21 Physical Exam Vitals: Vital Signs Temp Pulse Pulse Resp BP BP Pulse Ox 12/07/20 08:46 97.9 F 80 16 116/82 95 12/07/20 04:00 97.6 F 57 L 18 86/52 94 L 12/07/20 02:00 57 L 18 12/07/20 00:00 97.4 F L 64 18 96/61 96 12/06/20 22:30 64 18 12/06/20 22:23 97.5 F L 54 L 16 104/61 96 12/06/20 21:54 98.0 F 45 L 16 94/64 98 12/06/20 21:03 96 12/06/20 19:43 52 L 18 97/72 96 12/06/20 19:06 65 16 92/65 99 12/06/20 18:22 165 H 16 108/79 99 12/06/20 17:16 82 16 101/70 99 12/06/20 16:21 170 H 16 116/85 97 12/06/20 15:41 97.4 F L 170 H 22 109/89 95 Intake and Output 12/06/20 12/07/20 12/07/20 22:59 06:59 14:59 Intake Total 14.833 154.385 88.088 Balance 14.833 154.385 88.088 Intake: IV 100 0.9 100 Intake, IV Titration 14.833 54.385 88.088 Amount Diltiazem 125 mg In 14.833 88.088 Sodium Chloride 0.9% 100 ml @ 10 MG/HR 10 mls/hr IV .[id number] PIOTR Rx#: [id number] Heparin Sod,Pork in 0.45% 54.385 NaCl 25,000 unit In 0.45 % NaCl 1 250ml.bag @ 12 UNITS/KG/HR 6.728 mls/hr IV .Q24H PIOTR Rx#: [id number] Other: Voiding Method Toilet # Voids 1 Weight 56.064 kg 56.5 kg In general patient is alert and oriented x 3 in no distress HEENT head normocephalic and atraumatic Neck is supple no JVD no goiter no lymphadenopathy no carotid bruit Chest examination is clear to auscultation no crackles no wheezing Cardiac exam reveals regular heart sounds S1 and S2 no gallops no murmurs Abdomen is soft nontender no organomegaly with normal bowel sounds Extremity exam reveals no edema no cyanosis or clubbing Neurological examination reveals no gross focal deficits Results CBC & Chem 7: 12/07/20 09:03 12/07/20 09:03 Labs: Abnormal Lab Results - Last 24 Hours (Table) 12/06/20 12/06/20 12/06/20 Range/Units 16:23 16:23 17:08 RBC 5.72 H (3.80-5.40) m/uL Hgb 16.4 H (11.4-16.0) gm/dL Hct 48.3 H (34.0-46.0) % Lymphocytes # 0.8 L (1.0-4.8) k/uL APTT (22.0-30.0) sec Carbon Dioxide 17 L (22-30) mmol/L Total Bilirubin 1.8 H (0.2-1.3) mg/dL AST 37 H (14-36) U/L Total Protein 8.6 H (6.3-8.2) g/dL Albumin 5.1 H (3.5-5.0) g/dL TSH 17.700 H (0.465-4.680) mIU/L Urine Protein 2+ H (Negative) Urine Ketones Trace H (Negative) Urine Blood Small H (Negative) Urine Bacteria Rare H (None) /hpf Urine Mucus Rare H (None) /hpf 12/07/20 Range/Units 00:57 RBC (3.80-5.40) m/uL Hgb (11.4-16.0) gm/dL Hct (34.0-46.0) % Lymphocytes # (1.0-4.8) k/uL APTT 39.3 H (22.0-30.0) sec Carbon Dioxide (22-30) mmol/L Total Bilirubin (0.2-1.3) mg/dL AST (14-36) U/L Total Protein (6.3-8.2) g/dL Albumin (3.5-5.0) g/dL TSH (0.465-4.680) mIU/L Urine Protein (Negative) Urine Ketones (Negative) Urine Blood (Negative) Urine Bacteria (None) /hpf Urine Mucus (None) /hpf Thrombosis Risk Factor Assmnt - Choose All That Apply Any of the Below Risk Factors Present?: No Other Risk Factors: Yes Each Risk Factor Represents 2 Points: Major surgery Each Risk Factor Represents 5 Points: Major surgery lasting over 3 hours Thrombosis Risk Factor Assessment Total Risk Factor Score: 7 Thrombosis Risk Factor Assessment Level: High Risk Assessment and Plan Plan: 1. Atrial flutter 2. Underlying history of congenital heart disease 3. Underlying history of hypothyroidism 4. Underlying history of liver cirrhosis 5. Noncompliance with medications at home At this time patient is admitted to telemetry floor she was started on IV heparin and IV Cardizem Cardiology consultation was requested Will also consult hematology in regard to anticoagulation in view of her liver cirrhosis Synthroid was resumed and patient was counseled in length in regards to importance of taking medications as prescribed Will recheck labs and follow-up in a.m.
--- NOTE | 2020-12-07 16:30 | ECHOF ---
Referral Reason:atrial flutter MEASUREMENTS -------- HEIGHT: 152.4 cm WEIGHT: 52.2 kg BP: 99/70 IVSd: 1.6 cm (0.6 - 1.1) LVIDd: 3.6 cm (3.9 - 5.3) LVPWd: 1.4 cm (0.6 - 1.1) IVSs: 2.1 cm LVIDs: 2.4 cm LVPWs: 1.6 cm LA Diam: 3.5 cm (2.7 - 3.8) Ao Diam: 3.7 cm (2.0 - 3.7) AV Cusp: 2.0 cm (1.5 - 2.6) MV EXCURSION: 17.766 mm (> 18.000) MV EF SLOPE: 33 mm/s (70 - 150) EPSS: 0.1 cm MV E Kit: 0.60 m/s MV DecT: 289 ms MV A Kit: 0.44 m/s MV E/A Ratio: 1.38 AR PHT: 536 ms FINDINGS -------- Sinus rhythm. This was a technically adequate study. Patient had Fontan Procedure The left ventricular size is normal. There is moderate concentric left ventricular hypertrophy. O verall left ventricular systolic function is low-normal with, an EF between 50 - 55 %. The RV was not well visualized. Normal LA size by volume 22+/-6 ml/m2. The right atrium was not well visualized. The aortic valve was not well visualized. There is mild aortic regurgitation. The mitral valve is normal. Mild mitral regurgitation is present. The tricuspid valve was not well visualized. The pulmonic valve was not well visualized. There is no pericardial effusion. CONCLUSIONS -------- 1. Patient had Fontan Procedure 2. There is moderate concentric left ventricular hypertrophy. 3. Overall left ventricular systolic function is low-normal with, an EF between 50 - 55 %. 4. The RV was not well visualized. 5. Normal LA size by volume 22+/-6 ml/m2. 6. There is mild aortic regurgitation. 7. Mild mitral regurgitation is present. 8. The tricuspid valve was not well visualized. 9. The pulmonic valve was not well visualized. 10. There is no pericardial effusion. NON LICENSED NUCLEAR EQUIPMENT OPERATOR: Lucrecia Barksdale RD
[2020-12-07] MEDS ORDERED: APIXABAN 5 MG TAB PO SCH (21:00)
[2020-12-08] MEDS: LEVOTHYROXINE 75 MCG TAB PO SCH (06:36)
[2020-12-08] MEDS: PANTOPRAZOLE 40 MG TABLET PO SCH (06:36)
[2020-12-08] MEDS: HYDROcodone/APAP 5-325MG 1 EACH TAB PO PRN ×3 (08:36→21:35)
[2020-12-08] MEDS: APIXABAN 5 MG TAB PO SCH ×2 (08:36→21:28)
[2020-12-08 08:41] LABS: Basophils % (A) 1 %; Eosinophils # (A) 0.2 k/uL (0-0.7); Eosinophils % (A) 4 %; HCT 44.3 % (34.0-46.0); HGB 14.6 gm/dL (11.4-16.0); Lymphocytes # (A) 0.6 k/uL (1.0-4.8); Lymphocytes % (A) 16 %; MCH 28.8 pg (25.0-35.0); MCHC 32.9 g/dL (31.0-37.0); MCV 87.5 fL (80.0-100.0); Monocytes # (A) 0.3 k/uL (0-1.0); Monocytes % (A) 7 %; Neutrophils # (A) 2.6 k/uL (1.3-7.7); Neutrophils % (A) 70 %; Platelet Count 126 k/uL (150-450); RBC 5.06 m/uL (3.80-5.40); RDW 13.9 % (11.5-15.5); WBC 3.7 k/uL (3.8-10.6)
[2020-12-08 08:53] LABS: ALT 12 U/L (4-34); AST 29 U/L (14-36); African American GFR (CKD) >90 (>60 ml/min/1.73 sqM); Albumin 3.9 g/dL (3.5-5.0); Alkaline Phosphatase 53 U/L (38-126); Anion Gap 7 mmol/L; Blood Urea Nitrogen 15 mg/dL (7-17); Calcium 8.8 mg/dL (8.4-10.2); Carbon Dioxide 20 mmol/L (22-30); Chloride 108 mmol/L (98-107); Glucose 82 mg/dL (74-99); Non-African American GFR(CKD) 85 (>60 ml/min/1.73 sqM); Potassium 4.6 mmol/L (3.5-5.1); Sodium 135 mmol/L (137-145); Total Bilirubin 0.8 mg/dL (0.2-1.3); Total Protein 6.7 g/dL (6.3-8.2)
--- NOTE | 2020-12-08 10:08 | P.PN ---
Subjective Progress Note Date: 12/08/20 Asuncion Rizzo, 40-year-old female who presented to [facility] emergency room with a chief complaint of palpitation with feeling of fast heart rate, she was evaluated in the emergency room, vital examination on presentation revealed a temperature of 97.4 pulse 170 respiration 22 blood pressure 109/89 pulse ox 95% on room air, patient was given adenosine 12 mg IV subsequently her EKG revealed atrial flutter, she was started on IV Cardizem drip and IV heparin and was admitted to telemetry floor cardiology consultation was requested. Patient stated that recently she was trying to become , so she decided to stop all her medications, including her cardiac medications and her thyroid medications. Patient has a known history of congenital heart disease, and history of liver cirrhosis, she had history of atrial fibrillation in the past and was maintained on Cardizem, her camp boss in [place] also put her on Lovenox injections daily to avoid oral anticoagulation due to her history of liver cirrhosis. On 12/08/2020 patient is currently resting comfortably in bed. Per nursing staff patient has had episodes of saying "off" comments about how her baby dolls are her children but she is continuing to want to try to have a baby. And with patient's admission that she stopped all her medications due to trying to have a baby will consult psychiatry services for further evaluation. Patient has been started on eliquis per cardiology services. At this time heart rate 70. Respiratory rate 16 blood pressure 85/60. Hematology services have been consulted to address anticoagulation. At this time patient denies chest pain. Patient denies shortness breath. Patient denies any nausea vomiting or diarrhea. Patient denies any urinary burning or frequency Objective - Vital Signs Vital signs: Vital Signs Temp 98.1 F 12/08/20 08:26 Pulse 70 12/08/20 08:26 Resp 16 12/08/20 08:26 BP 85/60 12/08/20 08:26 Pulse Ox 92 L 12/08/20 08:26 Intake & Output 12/07/20 12/08/20 12/08/20 18:59 06:59 18:59 Intake Total 406.088 120 Balance 406.088 120 Weight 55.9 kg Intake: Intake, IV Titration 88.088 Amount Diltiazem 125 mg In 88.088 Sodium Chloride 0.9% 100 ml @ 10 MG/HR 10 mls/hr IV .[id number] [facility] Rx#: [id number] Oral 318 120 Other: Voiding Method Toilet Toilet # Voids 3 1 - Exam In general patient is alert and oriented x 3 in no distress HEENT head normocephalic and atraumatic Neck is supple no JVD no goiter no lymphadenopathy no carotid bruit Chest examination is clear to auscultation no crackles no wheezing Cardiac exam reveals regular heart sounds S1 and S2 no gallops no murmurs Abdomen is soft nontender no organomegaly with normal bowel sounds Extremity exam reveals no edema no cyanosis or clubbing Neurological examination reveals no gross focal deficits - Labs CBC & Chem 7: 12/08/20 07:31 12/08/20 07:31 Labs: Abnormal Lab Results - Last 24 Hours (Table) 12/08/20 12/08/20 Range/Units 07:31 07:31 WBC 3.7 L (3.8-10.6) k/uL Plt Count 126 L (150-450) k/uL Lymphocytes # 0.6 L (1.0-4.8) k/uL Sodium 135 L (137-145) mmol/L Chloride 108 H (98-107) mmol/L Carbon Dioxide 20 L (22-30) mmol/L Assessment and Plan Plan: 1. Atrial flutter 2. Underlying history of congenital heart disease 3. Underlying history of hypothyroidism 4. Underlying history of liver cirrhosis 5. Noncompliance with medications at home 6. History of Fontan procedure for atresia tricuspid valve Cardiology, hematology and psychiatry service is consulted Synthroid was resumed and patient was counseled in length in regards to importance of taking medications as prescribe
[2020-12-08] MEDS: METOPROLOL TARTRATE 25 MG TAB PO SCH (11:16)
--- NOTE | 2020-12-08 12:24 | PN ---
PROGRESS NOTE Mrs. Rizzo is a 40-year-old female with history of tricuspid atresia, history of Fontan procedure, paroxysmal atrial flutter, prior history of liver cirrhosis and paracentesis. She presented with atrial flutter with rapid ventricular response. She is back in sinus mechanism. She is feeling well at this time. She denies any chest pain. Her breathing is stable. She denies any dizziness or palpitation. She has stopped all her medication prior to admission. Her blood pressure has been on the low side. She continues to be on Eliquis 5 mg twice a day and metoprolol tartrate 25 mg twice a day. The dose was not given because of a low heart rate. PHYSICAL EXAMINATION: Blood pressure running in the high 90s with a heart rate in the 50s. LUNGS: Clear. HEART: Regular rate and rhythm S1, S2. No S3 with systolic murmur at the base in the apex. ABDOMEN: Soft, nontender. EXTREMITIES: No edema. LAB: BUN and creatinine 15 and 0.86. Potassium 4.6, and she had an echocardiogram that revealed a preserved left side systolic function. The right ventricle was not well visualized. IMPRESSION: 1. Atrial flutter back in sinus mechanism. 2. History of a tricuspid atresia, status post Fontan procedure. 3. Prior history of noncompliance. RECOMMENDATION: I will cut down the dose of her metoprolol to 12.5 mg twice a day. Continue rest of medical regimen, increase her level activity. If she remains stable in sinus mechanism, I would expect she should be able to be discharged home in the next 24 hours. MMODL / IJN: [id number] /
--- NOTE | 2020-12-08 12:56 | CONS ---
CONSULTATION DATE OF SERVICE: December 08, 2020. REASON FOR CONSULTATION: To consider anticoagulation. CHIEF COMPLAINT: Palpitation. HISTORY OF PRESENT ILLNESS: Asuncion is 40 years old lady who is known to have congenital heart disease. She came into the hospital because her heart was beating very fast. She was evaluated in the emergency room. She was found to have a pulse of 180. She was given adenosine, and her EKG revealed atrial flutter. She was initially started on IV Cardizem and IV heparin and admitted to the hospital. Subsequently she was seen by a Cardiology. The Cardizem drip was discontinued and the IV heparin was discontinued and the patient was placed on Eliquis and beta stanley. The reason we were asked to see this patient because of history of liver cirrhosis and type of anticoagulation. The patient stated that stopped medication on her own in order to become . She was seen by manual tester in [place] and she was put on Lovenox injection daily injection to avoid oral anticoagulation in view of her liver cirrhosis. The patient is known to have liver cirrhosis, but there is no reported history or known history of encephalopathy. Also she had paracentesis a few times in the past. However, the last one was in 2019. She has not had any ascites. During her hospital admission, her PT was normal. INR was normal and her albumin was normal. The patient at this time she feels better. No shortness of breath or chest pain. No nausea or vomiting. No melena, hematochezia, hemoptysis, hematemesis or epistaxis. She has not had a menstrual period for a few months. PAST MEDICAL HISTORY: She has atrial flutter. She is known to have Fontan surgery for pulmonic atresia and she is known to have liver cirrhosis. REVIEW OF SYSTEMS: As stated above in history of present illness, otherwise negative. SOCIAL HISTORY: No smoking. No reported alcohol abuse or illicit drug use. CURRENT MEDICATION: Reviewed in her electronic medical record. PHYSICAL EXAMINATION: She is alert and oriented times three. She does not appear to be in distress. Her vital signs are temperature 98.1, pulse is 70 and regular at this time, blood pressure 92/59, pulse ox is 100 percent on room air. HEENT: Normocephalic, atraumatic. No icterus. NECK: Supple. CHEST equal expansion bilaterally. LUNGS are clear. HEART is regular rate and rhythm. ABDOMEN: Soft. No tenderness. EXTREMITIES: No edema. SKIN: No significant bruises or ecchymosis or petechiae. LYMPHATICS: No peripherally enlarged cervical or supraclavicular nodes. MUSCULOSKELETAL: No percussion tenderness, on cervical spine, sternum. LABORATORY DATA: WBC of 3.7, hemoglobin 14.6, hematocrit 44.3, platelets are 126. Sodium 135, potassium 4.6, chloride is 108, CO2 is 20. Her total bilirubin is 0.8, AST 29, ALT is 212, albumin 3.9. Her PT 11.8, the PTT is 24.7. IMPRESSION: 1. Atrial flutter. The patient requiring anticoagulation. 2. Reported history of liver cirrhosis. RECOMMENDATION: Upon reviewing her records, it seems like the last paracentesis she had was in 2019 for ascites and she has had no recurrence of that. Today, based on recent lab evaluation, her albumin appears normal. INR is normal. PT, PTT are normal and total bilirubin is normal. Based on that, she does not have any advanced that Child-Mercedes liver cirrhosis. Of note there is no reported history of encephalopathy in the past and no reported history of any excessive bleeding in the past. Based on that, it is reasonable to continue with Adelita at this point in time. Certainly with her underlying liver cirrhosis, that may put her at a higher risk of bleeding complication. The above was discussed in detail with the patient and I have answered all questions. Thank you very much for asking me participate in the care of this nice lady. MMZANAL / JIMMYN: [id number] /
[2020-12-08] MEDS: METOPROLOL TARTRATE 12.5 MG TAB PO SCH (21:28)
[2020-12-08 22:31] VITALS: RESP 18
[2020-12-09] MEDS: LEVOTHYROXINE 75 MCG TAB PO SCH (06:31)
[2020-12-09] MEDS: PANTOPRAZOLE 40 MG TABLET PO SCH (06:31)
[2020-12-09] MEDS: METOPROLOL TARTRATE 12.5 MG TAB PO SCH ×2 (08:45→11:32)
[2020-12-09] MEDS: APIXABAN 5 MG TAB PO SCH (08:45)
[2020-12-09] MEDS: HYDROcodone/APAP 5-325MG 1 EACH TAB PO PRN (08:45)
[2020-12-09 08:50] VITALS: TEMP 97.7
--- NOTE | 2020-12-09 09:56 | US ---
EXAMINATION TYPE: US abdomen complete DATE OF EXAM: 12/09/2020 COMPARISON: NONE CLINICAL HISTORY: 40-year-old female abdominal pain. LUQ pain, nausea TECHNIQUE: Multiple sonographic images of the abdomen are obtained. FINDINGS: EXAM MEASUREMENTS: Liver Length: 13.0 cm Gallbladder Wall: 0.3 cm CBD: 0.3 cm Spleen: 16.3 cm Right Kidney: 9.0 x 3.9 x 4.1 cm Left Kidney: 9.1 x 3.8 x 4.0 cm Foreign Student Adviser Teacher notes:Technical limitations due to large amount of overlying bowel content Pancreas: Obscured by bowel gas Liver: heterogeneous, nodular contour. No focal lesion seen. Gallbladder: No abnormal distention or shadowing calculi. Evidence for sonographic Quevedo's sign: no CBD: wnl as visualized Spleen: enlarged Right Kidney: no evidence of hydronephrosis Left Kidney: no evidence of hydronephrosis Upper IVC: wnl Abd Aorta: Obscured by overlying bowel gas There is mild upper abdominal ascites. IMPRESSION: 1. Cirrhotic morphology of the liver. No focal lesion seen. 2. Splenomegaly (16.3 cm) and mild upper abdominal ascites suggests concurrent portal venous hyperten jodie. Clinically correlate. 3. No gallstones or biliary ductal dilatation.
[2020-12-09 11:43] LABS: Basophils % (A) 1 %; Eosinophils # (A) 0.2 k/uL (0-0.7); Eosinophils % (A) 4 %; HGB 15.3 gm/dL (11.4-16.0); Lymphocytes # (A) 0.6 k/uL (1.0-4.8); Lymphocytes % (A) 14 %; MCH 27.7 pg (25.0-35.0); MCHC 31.8 g/dL (31.0-37.0); MCV 87.1 fL (80.0-100.0); Mean Platelet Volume 9.4; Monocytes # (A) 0.4 k/uL (0-1.0); Monocytes % (A) 8 %; Neutrophils # (A) 3.1 k/uL (1.3-7.7); Neutrophils % (A) 71 %; Platelet Count 139 k/uL (150-450); RBC 5.51 m/uL (3.80-5.40); RDW 14.2 % (11.5-15.5); WBC 4.4 k/uL (3.8-10.6)
[2020-12-09 11:54] LABS: ALT 12 U/L (4-34); AST 31 U/L (14-36); African American GFR (CKD) >90 (>60 ml/min/1.73 sqM); Albumin 4.2 g/dL (3.5-5.0); Alkaline Phosphatase 52 U/L (38-126); Anion Gap 8 mmol/L; Blood Urea Nitrogen 13 mg/dL (7-17); Carbon Dioxide 22 mmol/L (22-30); Chloride 106 mmol/L (98-107); Glucose 83 mg/dL (74-99); Non-African American GFR(CKD) 83 (>60 ml/min/1.73 sqM); Potassium 4.7 mmol/L (3.5-5.1); Sodium 136 mmol/L (137-145); Total Bilirubin 1.1 mg/dL (0.2-1.3); Total Protein 7.2 g/dL (6.3-8.2)
--- NOTE | 2020-12-09 13:45 | P.PN ---
Subjective Progress Note Date: 12/09/20 HISTORY OF PRESENT ILLNESS: Patient examined this morning at the bedside. Patient denies chest pain or pressure. She denies shortness of breath. Telemetry reveals sinus mechanism. P atient hypotensive this morning and metoprolol was held. Heart rate in the 50- 60s. PHYSICAL EXAM: VITAL SIGNS: Reviewed. GENERAL: Well-developed in no acute distress. NECK: Supple. No JVD or thyromegaly LUNGS: Respirations even and unlabored. Lungs essentially clear to auscultation bilaterally. HEART: Regular rate and rhythm. S1 and S2 heard. EXTREMITIES: Normal range of motion. No clubbing or cyanosis. Peripheral pulses intact. No lower extremity edema ASSESSMENT: Paroxysmal typical atrial flutter with RVR History of tricuspid valve atresia, with previous Fontan procedure History of congenital heart disease History of liver cirrhosis Medical noncompliance PLAN: Continue anticoagulation with Eliquis Continue telemetry monitoring Continue metoprolol. Hold for HR less than 60 or SBP less than 90 Further recommendations pending patient course Nurse practitioner note has been reviewed by physician. Signing provider agrees with the documented findings, assessment, and plan of care. Objective - Vital Signs Vital signs: Vital Signs Temp 97.7 F 12/09/20 08:00 Pulse 59 L 12/09/20 12:54 Resp 18 12/09/20 12:00 BP 97/64 12/09/20 12:00 Pulse Ox 95 12/09/20 12:00 Intake & Output 12/08/20 12/09/20 12/09/20 18:59 06:59 18:59 Intake Total 356 Balance 356 Weight 56.2 kg Intake: Oral 356 Other: Voiding Method Toilet Toilet # Voids 4 2 - Labs CBC & Chem 7: 12/09/20 11:00 12/09/20 11:00 Labs: Abnormal Lab Results - Last 24 Hours (Table) 12/09/20 12/09/20 Range/Units 11:00 11:00 RBC 5.51 H (3.80-5.40) m/uL Hct 48.0 H (34.0-46.0) % Plt Count 139 L (150-450) k/uL Lymphocytes # 0.6 L (1.0-4.8) k/uL Sodium 136 L (137-145) mmol/L
--- NOTE | 2020-12-09 15:17 | P.CN ---
Psychiatric Consult - . Consult date: 12/09/20 Consult:: 12/09/20 15:08 IDENTIFYING DATA: This patient is a 40-year-old female with a history of intellectual disability who currently lives with her mother who is her guardian and her brother in a house has no kids and is currently unemployed REASON FOR REFERRAL: Psychiatry was consulted for AMS and medication noncompliance HISTORY OF PRESENT ILLNESS: The patient presented to the hospital on 12/06 with her boyfriend. Patient was complaining at the time of palpitations especially when laying down and appear to be dyspneic and dizzy. Patient claimed in the ER that she had stopped taking her medications due to trying to get with her boyfriend. Patient does have a congenital heart condition which was requiring cardiac medications. Patient's TSH was elevated. Patient's nurse claims that patient has been "bizarre" and fixated on baby dolls and also trying to have a baby. Patient's mother and guardian Soo agreed to speak with brother outside patient's room. She states that patient has been trying to get for years now and has been trying with her boyfriend. She states that her boyfriend has also been trying is well with her. She claims that there has been no recent changes in patient's behavior and patient has no significant past psychiatric history. She claims that patient did grow up going to special classes in school. Patient was seen at the bedside and was attempting to cooperate with freelance writer and fairly calm. She spoke about having chest pain and palpitations that wouldn't stop. She claims that it has now gotten better. She claims that her mood is "okay" and is denying any depression or anxiety at this time. She did claim that she has been off her medications for about 2 years now as she is trying to get with her boyfriend. She claims that she did not know that her medications could cause this. She had spoken with her PCP and got the impression that her cardiac medications were teratogenic. She was holding a doll in the form of a baby and cradling it and states that "this house may get over my miscarriage" which happened several years ago. At this time patient denies any suicidal or homical ideations, intent or plan. Patient denies any auditory, visual hallucinations. Patients admits to using no recreational drugs or cigarettes PAST PSYCHIATRIC HISTORY: Patient has no significant past psychiatric history. Patient denies being on any psychiatric medications. Patient denies any previous psychiatric hospitalizations. Patient denies any psychiatric outpatient follow- up. Patient denies any history of suicide attempts in the past. PAST MEDICAL HISTORY: Congenital heart disease, cirrhosis, atrial flutter, asthma, thyroid disorder. ALLERGIES: as per EMR. CHEMICAL DEPENDENCY HISTORY: as per HPI. FAMILY PSYCHIATRIC/SUBSTANCE USE HISTORY: denies SOCIAL HISTORY: Patient was born and raised in [facility]. She states that she is currently unemployed and lives with her mother and brother. Her mother is her guardian. She has no kids. She did graduate high school however attended special education classes. She denies any legal history. MENTAL STATUS EXAM: General Appearance: Patient appears to be stated age is alert, pleasant, and attempts to be cooperative. Patient appears to have fair hygiene and grooming wearing hospital gown with fair eye contact. Behavior: Patient is calmly lying in bed without any agitated behavior. Bizarre at times. Cradling a doll. Speech: Patient's speech is fluent and nonpressured. Mood/Affect: Patient reports their mood is "ok", affect is congruent Suicidality/Homicidality: Patient denies having any suicidal or homicidal ideation intent or plan. Perceptions: Patient denies any visual hallucinations and denies any auditory hallucinations Though content/process: [place], no paranoia. Logical. Focused on . Memory and concentration: AOX3, grossly intact for the purposes of this session. Can spell "WORLD" backwards Judgment and insight: limited chronically IMPRESSIONS: Intellectual disability PLAN: -At this time patient DOES NOT meet criteria for inpatient psychiatric admission. -Would recommend the following medication changes/additions: No need for starting any psychiatric medications at this time. -Would recommend that hospitalist and commissioner of conciliation speak with patient about her heart condition and address noncompliance and provide further education about and her current cardiac meds. Spoke with Building Mover about the recommendations -Communicated plan to patient's nurse -Psychiatry will sign off at this time -Please contact with any questions.
[2020-12-09 16:40] VITALS: BP 84/51; PULSE 63
--- NOTE | 2020-12-09 17:20 | P.DS ---
Providers Date of admission: 12/06/20 17:53 Expected date of discharge: 12/09/20 Attending physician: Devaughn Marino Consults: 12/06/20 17:54 Consult Physician Urgent Consulting Provider: Michael Chicas Consult Reason/Comments: Atrial flutter with RVR Do you want consulting provider notified?: Already Contacted 12/07/20 14:55 Consult Physician Routine Consulting Provider: Elmer Mir Consult Reason/Comments: anticoagulation and history of liver cirrhosis Do you want consulting provider notified?: Yes 12/08/20 09:59 Consult Physician Routine Consulting Provider: Kodak Castanon Consult Reason/Comments: Altered mental status, medication noncompliance Do you want consulting provider notified?: Already Contacted Primary care physician: Devaughn Marino [facility] Course: Diagnosis on discharge: 1. Atrial flutter 2. Underlying history of congenital heart disease 3. Underlying history of hypothyroidism 4. Underlying history of liver cirrhosis 5. Noncompliance with medications at home 6. History of Fontan procedure for atresia tricuspid valve Hospital course: Asuncion Rizzo, 40-year-old female who presented to [facility] emergency room with a chief complaint of palpitation with feeling of fast heart rate, she was evaluated in the emergency room, vital examination on presentation revealed a temperature of 97.4 pulse 170 respiration 22 blood pressure 109/89 pulse ox 95% on room air, patient was given adenosine 12 mg IV subsequently her EKG revealed atrial flutter, she was started on IV Cardizem drip and IV heparin and was admitted to telemetry floor cardiology consultation was requested. Patient stated that recently she was trying to become , so she decided to stop all her medications, including her cardiac medications and her thyroid medications. Patient has a known history of congenital heart disease, and history of liver cirrhosis, she had history of atrial fibrillation in the past and was maintained on Cardizem, her home care assistant in [place] also put her on Lovenox injections daily to avoid oral anticoagulation due to her history of liver cirrhosis. On 12/08/2020 patient is currently resting comfortably in bed. Per nursing staff patient has had episodes of saying "off" comments about how her baby dolls are her children but she is continuing to want to try to have a baby. And with patient's admission that she stopped all her medications due to trying to have a baby will consult psychiatry services for further evaluation. Patient has been started on eliquis per cardiology services. At this time heart rate 70. Respiratory rate 16 blood pressure 85/60. Hematology services have been consulted to address anticoagulation. At this time patient denies chest pain. Patient denies shortness breath. Patient denies any nausea vomiting or diarrhea. Patient denies any urinary burning or frequency On 12/09/2020 Patient was seen and examined on the medical floor, he is alert and oriented x 3 in no distress, he denies any complaints there is no fever or chills no headache or dizziness no chest pain no shortness of breath no palpitation no cough no nausea or vomiting no abdominal pain no diarrhea no blood in the stools no burning with urination no frequency or urgency and no hematuria, patient was evaluated by cardiology, psychiatry, and hematology, and was cleared for discharge she was given prescriptions for Synthroid, liquids, metoprolol, and Protonix prolonged counseling was given to patient in regards to adherence to medical regimen and possibility of significant morbidity and mortality in case she stops medications abruptly patient and her mother seem to understand counseling. Patient will be discharged to home today Will follow in the office on Wednesday. Patient Condition at Discharge: Stable Plan - Discharge Summary Discharge Rx Participant: Yes New Discharge Prescriptions: New Apixaban [Eliquis] 5 mg PO BID tab Metoprolol Tartrate [Lopressor] 12.5 mg PO BID tab Pantoprazole [Protonix] 40 mg PO AC-BRKFST tablet. Levothyroxine Sodium [Synthroid] 75 mcg PO DAILY@0630 tab Discharge Medication List Apixaban [Eliquis] 5 mg PO BID tab 12/09/20 [Rx] Levothyroxine Sodium [Synthroid] 75 mcg PO DAILY@0630 tab 12/09/20 [Rx] Metoprolol Tartrate [Lopressor] 12.5 mg PO BID tab 12/09/20 [Rx] Pantoprazole [Protonix] 40 mg PO AC-BRKFST tablet. 12/09/20 [Rx] Follow up Appointment(s)/Referral(s): [facility], [NON-STAFF] - Devaughn Marino MD [Primary Care Provider] - 1-2 days
== END 2020-12-09 17:23 | disposition home or self-care (01) | DRG 309 ==
LOC: EC 14:45 → 3SCARD 17:53
PROVIDERS: ADMIT Internal Medicine; ATTEND Internal Medicine
DX: I48.3 Typical atrial flutter (principal); R18.8 Other ascites; K74.60 Unspecified cirrhosis of liver; Z79.01 Long term (current) use of anticoagulants; Z91.14 Patient's other noncompliance with medication regimen; E03.9 Hypothyroidism, unspecified; Z20.822 Contact with and (suspected) exposure to COVID-19; F79 Unspecified intellectual disabilities; J45.909 Unspecified asthma, uncomplicated; I48.91 Unspecified atrial fibrillation; Z91.19 Patient's noncompliance with other medical treatment and regimen; Z95.1 Presence of aortocoronary bypass graft; K76.9 Liver disease, unspecified; Z87.74 Personal history of (corrected) congenital malformations of heart and circulatory system
CPT/HCPCS: 36415; 71045; 76700; 80053; 81001; 83690; 83735; 84439; 84443; 84484; 84703; 85025; 85610; 85730; 87635; 93005; 93306; 94760; 96361; 96374; 96375; 99291

== ENCOUNTER 2020-12-13 20:48 | Emergency (ER) | payer OTHER ==
[2020-12-13 21:10] VITALS: TEMP 97.9
[2020-12-13] MEDS ORDERED: ASPIRIN 81 MG PO STA (22:02)
[2020-12-13] MEDS ORDERED: SODIUM CHLORIDE 0.9% 500 ML 500 ML IV STA (22:02)
[2020-12-13] MEDS ORDERED: ONDANSETRON 4 MG/2 ML VIAL IVP STA (22:02)
[2020-12-13] MEDS ORDERED: MORPHINE SULFATE 4 MG/ML SYRINGE IV STA (22:02)
[2020-12-13 22:26] LABS: Basophils % (A) 1 %; Eosinophils # (A) 0.1 k/uL (0-0.7); Eosinophils % (A) 3 %; HCT 41.6 % (34.0-46.0); HGB 14.1 gm/dL (11.4-16.0); Lymphocytes # (A) 0.6 k/uL (1.0-4.8); Lymphocytes % (A) 13 %; MCH 28.2 pg (25.0-35.0); MCHC 33.8 g/dL (31.0-37.0); MCV 83.2 fL (80.0-100.0); Mean Platelet Volume 9.1; Monocytes # (A) 0.3 k/uL (0-1.0); Monocytes % (A) 7 %; Neutrophils # (A) 3.4 k/uL (1.3-7.7); Neutrophils % (A) 74 %; Platelet Count 124 k/uL (150-450); RDW 13.6 % (11.5-15.5); WBC 4.7 k/uL (3.8-10.6)
[2020-12-13 22:34] LABS: Appearance,Urine Clear (Clear); Bilirubin,Urine Negative (Negative); Blood,Urine Trace (Negative); Color,Urine Yellow; Glucose,Urine (UA) Negative (Negative); Ketones,Urine Negative (Negative); Leukocyte Esterase,Urine Negative (Negative); Mucus,Urine Rare /hpf; Nitrite,Urine Negative (Negative); PH, Urine 6.5 (5.0-8.0); Protein,Urine 1+ (Negative); RBC,Urine 3 /hpf (0-5); Specific Gravity,Urine 1.018 (1.001-1.035); Squamous Epithelial Cell,Urine 1 /hpf (0-4); Urobilinogen,Urine <2.0 mg/dL (<2.0); WBC,Urine 2 /hpf (0-5)
[2020-12-13 22:37] LABS: ALT 14 U/L (4-34); AST 39 U/L (14-36); African American GFR (CKD) >90 (>60 ml/min/1.73 sqM); Albumin 4.5 g/dL (3.5-5.0); Alkaline Phosphatase 68 U/L (38-126); Anion Gap 12 mmol/L; Blood Urea Nitrogen 17 mg/dL (7-17); Calcium 9.8 mg/dL (8.4-10.2); Carbon Dioxide 20 mmol/L (22-30); Chloride 105 mmol/L (98-107); Glucose 96 mg/dL (74-99); Lipase 73 U/L (23-300); Magnesium 1.9 mg/dL (1.6-2.3); Non-African American GFR(CKD) >90 (>60 ml/min/1.73 sqM); Sodium 137 mmol/L (137-145); Total Bilirubin 1.3 mg/dL (0.2-1.3); Total Protein 7.6 g/dL (6.3-8.2)
[2020-12-13 22:39] LABS: INR 1.2 (<1.2); Partial Thromboplastin Time 24.7 sec (22.0-30.0); Prothrombin Time 12.3 sec (9.0-12.0)
[2020-12-13 22:45] LABS: D-Dimer 2.99 mg/L FEU (<0.60)
--- NOTE | 2020-12-13 23:05 | XR ---
EXAMINATION TYPE: XR chest 2V DATE OF EXAM: 12/13/2020 COMPARISON: 12/06/2020 HISTORY: Chest pain TECHNIQUE: FINDINGS: Heart size is normal. Lungs are clear of consolidation. There is no heart failure. There ar e multiple surgical clips over the mediastinum. There are sternal wires. There is left and right rib deformity consistent with old fractures. There is no pleural effusion. IMPRESSION: No active cardiopulmonary disease. No change.
[2020-12-13 23:13] LABS: Potassium 5.3 mmol/L (3.5-5.1)
--- NOTE | 2020-12-13 23:15 | ED ---
General Adult HPI - General Chief complaint: Chest Pain Stated complaint: Chest Pain Time Seen by Provider: 12/13/20 21:25 Source: patient Mode of arrival: wheelchair Limitations: no limitations - History of Present Illness Initial comments: 40 year-old female patient with history significant for congenital heart disease, atrial flutter, liver disease presents to the emergency department for evaluation of chest pain and shortness of breath that started about an hour ago. Patient states she is also having nausea and feels like vomiting. Reports shortn ess of breath with this. Denies history of CAD or IN. Did have a meal about 1.5 hours prior to onset of symptoms. States she was going for a walk when the symptoms started. Patient denies any recent rash, fever, chills, cough, abdominal pain, nausea, vomiting, diarrhea, constipation, back pain, numbness, tingling, dizziness, weakness, hematuria, dysuria, urinary urgency, urinary frequency, headache, visual changes, or any other complaints. - Related Data Previous Rx's Medication Instructions Recorded Apixaban [Eliquis] 5 mg PO BID tab 12/09/20 Levothyroxine Sodium [Synthroid] 75 mcg PO DAILY@0630 tab 12/09/20 Metoprolol Tartrate [Lopressor] 12.5 mg PO BID tab 12/09/20 Pantoprazole [Protonix] 40 mg PO AC-BRKFST tablet. 12/09/20 Allergies Allergy/AdvReac Type Severity Reaction Status Date / Time warfarin sodium Allergy Anaphylaxis Verified 12/13/20 21:09 [From Coumadin] peas AdvReac Diarrhea Verified 12/13/20 21:09 Review of Systems ROS Statement: Those systems with pertinent positive or pertinent negative responses have been documented in the HPI. ROS Other: All systems not noted in ROS Statement are negative. 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 7, Past Anesthesia/Blood Transfusion Reactions: Previous Problems w/ Anesthesia Additional Past Anesthesia/Blood Transfusion Reaction / Comment(s): Patient states she is allergic to anesthesia during 2018 heart cath -- had numbness in right face and left hand, states anesthesiologists indicated if next procedure, would have to be adjusted Past Psychological History: No Psychological Hx Reported Smoking Status: Never smoker Past Alcohol Use History: None Reported Past Drug Use History: None Reported - Past Family History Mother Family Medical History: Asthma, Cancer, Hyperlipidemia, Hypertension Additional Family Medical History / Comment(s): Mother had breast CA at age 52 Brother(s) Family Medical History: Asthma Father Family Medical History: Asthma General Exam Limitations: no limitations General appearance: alert, in no apparent distress, other (This is a well- developed, well-nourished adult female patient in no acute distress. V/S upon presentation are temperature 97.9F, pulse 76, respirations 18, BP 76/62, pulse ox 95% on room air. ) Eye exam: Present: normal appearance, PERRL, EOMI. Absent: scleral icterus, conjunctival injection, periorbital swelling ENT exam: Present: normal exam, normal oropharynx, mucous membranes moist Respiratory exam: Present: normal lung sounds bilaterally. Absent: respiratory distress, wheezes, rales, rhonchi, stridor Cardiovascular Exam: Present: regular rate, normal rhythm, normal heart sounds. Absent: systolic murmur, diastolic murmur, rubs, gallop, clicks GI/Abdominal exam: Present: soft, normal bowel sounds. Absent: distended, tenderness, guarding, rebound, rigid Neurological exam: Present: alert, oriented X3, CN II-XII intact Psychiatric exam: Present: normal affect, normal mood Skin exam: Present: warm, dry, intact, normal color. Absent: rash Course Vital Signs 12/13/20 12/13/20 12/14/20 21:04 23:30 03:03 Temperature 97.9 F Pulse Rate 76 60 75 Respiratory 18 16 16 Rate Blood Pressure 76/62 87/66 94/74 O2 Sat by Pulse 95 97 95 Oximetry EKG Findings - EKG Comments: EKG Findings:: EKG obtained at 2159 shows sinus rhythm with first-degree AV block, ventricular rate 71, FL interval 236, QRS duration 94, QT 396, QTc 430. No evidence of ST elevation or depression. There are some flipped T waves. Procedures - [place] Protocol (Time Out) Nurse: Keyla Patrick Medical Decision Making - Medical Decision Making 40-year-old female patient with multiple medical problems comes in to the emergency department today reporting chest pain, nausea, upper abdominal discomfort. Physical examination reveals clear: Sounds. EKG showed sinus rhythm with first-degree AV block. No ST elevation or depression. Labs reviewed and did reveal d-dimer at 2.99, troponins negative. Chest x-ray negative. CT chest angiography shows chronic changes but no evidence for acute pulmonary embolism or any other acute changes. Blood pressures were borderline, patient states her blood pressure is normally low. She was given some fluids. Upon reevaluation resting complete. Has no symptoms of low blood pressure. She be discharged with her primary care physician for recheck in 1-2 days. Return parameters were discussed in detail. She verbalizes understanding and agrees with this plan. My attending is Dr. Aguila. - Lab Data Result diagrams: 12/13/20 22:17 12/13/20 22:17 Lab Results 12/13/20 12/13/20 12/13/20 Range/Units 22:17 22:17 22:17 WBC 4.7 (3.8-10.6) k/uL RBC 5.00 (3.80-5.40) m/uL Hgb 14.1 (11.4-16.0) gm/dL Hct 41.6 (34.0-46.0) % MCV 83.2 (80.0-100.0) fL MCH 28.2 (25.0-35.0) pg MCHC 33.8 (31.0-37.0) g/dL RDW 13.6 (11.5-15.5) % Plt Count 124 L (150-450) k/uL MPV 9.1 Neutrophils % 74 % Lymphocytes % 13 % Monocytes % 7 % Eosinophils % 3 % Basophils % 1 % Neutrophils # 3.4 (1.3-7.7) k/uL Lymphocytes # 0.6 L (1.0-4.8) k/uL Monocytes # 0.3 (0-1.0) k/uL Eosinophils # 0.1 (0-0.7) k/uL Basophils # 0.0 (0-0.2) k/uL PT 12.3 H (9.0-12.0) sec INR 1.2 H (<1.2) APTT 24.7 (22.0-30.0) sec D-Dimer 2.99 H (<0.60) mg/L FEU Sodium (137-145) mmol/L Potassium (3.5-5.1) mmol/L Chloride (98-107) mmol/L Carbon Dioxide (22-30) mmol/L Anion Gap mmol/L BUN (7-17) mg/dL Creatinine (0.52-1.04) mg/dL Est GFR (CKD-EPI)AfAm (>60 ml/min/1.73 sqM) Est GFR (CKD-EPI)NonAf (>60 ml/min/1.73 sqM) Glucose (74-99) mg/dL Calcium (8.4-10.2) mg/dL Magnesium (1.6-2.3) mg/dL Total Bilirubin (0.2-1.3) mg/dL AST (14-36) U/L ALT (4-34) U/L Alkaline Phosphatase (38-126) U/L Troponin I (0.000-0.034) ng/mL Total Protein (6.3-8.2) g/dL Albumin (3.5-5.0) g/dL Lipase (23-300) U/L Urine Color Yellow Urine Appearance Clear (Clear) Urine pH 6.5 (5.0-8.0) Ur Specific [place] 1.018 (1.001-1.035) Urine Protein 1+ H (Negative) Urine Glucose (UA) Negative (Negative) Urine Ketones Negative (Negative) Urine Blood Trace H (Negative) Urine Nitrite Negative (Negative) Urine Bilirubin Negative (Negative) Urine Urobilinogen <2.0 (<2.0) mg/dL Ur Leukocyte Esterase Negative (Negative) Urine RBC 3 (0-5) /hpf Urine WBC 2 (0-5) /hpf Ur Squamous Epith Cells 1 (0-4) /hpf Urine Mucus Rare H (None) /hpf Urine HCG, Qual (Not Detectd) 12/13/20 12/13/20 12/13/20 Range/Units 22:17 22:17 22:17 WBC (3.8-10.6) k/uL RBC (3.80-5.40) m/uL Hgb (11.4-16.0) gm/dL Hct (34.0-46.0) % MCV (80.0-100.0) fL MCH (25.0-35.0) pg MCHC (31.0-37.0) g/dL RDW (11.5-15.5) % Plt Count (150-450) k/uL MPV Neutrophils % % Lymphocytes % % Monocytes % % Eosinophils % % Basophils % % Neutrophils # (1.3-7.7) k/uL Lymphocytes # (1.0-4.8) k/uL Monocytes # (0-1.0) k/uL Eosinophils # (0-0.7) k/uL Basophils # (0-0.2) k/uL PT (9.0-12.0) sec INR (<1.2) APTT (22.0-30.0) sec D-Dimer (<0.60) mg/L FEU Sodium 137 (137-145) mmol/L Potassium 5.3 H (3.5-5.1) mmol/L Chloride 105 (98-107) mmol/L Carbon Dioxide 20 L (22-30) mmol/L Anion Gap 12 mmol/L BUN 17 (7-17) mg/dL Creatinine 0.74 (0.52-1.04) mg/dL Est GFR (CKD-EPI)AfAm >90 (>60 ml/min/1.73 sqM) Est GFR (CKD-EPI)NonAf >90 (>60 ml/min/1.73 sqM) Glucose 96 (74-99) mg/dL Calcium 9.8 (8.4-10.2) mg/dL Magnesium 1.9 (1.6-2.3) mg/dL Total Bilirubin 1.3 (0.2-1.3) mg/dL AST 39 H (14-36) U/L ALT 14 (4-34) U/L Alkaline Phosphatase 68 (38-126) U/L Troponin I <0.012 (0.000-0.034) ng/mL Total Protein 7.6 (6.3-8.2) g/dL Albumin 4.5 (3.5-5.0) g/dL Lipase 73 (23-300) U/L Urine Color Urine Appearance (Clear) Urine pH (5.0-8.0) Ur Specific [place] (1.001-1.035) Urine Protein (Negative) Urine Glucose (UA) (Negative) Urine Ketones (Negative) Urine Blood (Negative) Urine Nitrite (Negative) Urine Bilirubin (Negative) Urine Urobilinogen (<2.0) mg/dL Ur Leukocyte Esterase (Negative) Urine RBC (0-5) /hpf Urine WBC (0-5) /hpf Ur Squamous Epith Cells (0-4) /hpf Urine Mucus (None) /hpf Urine HCG, Qual Not Detected (Not Detectd) - Radiology Data Radiology results: report reviewed, image reviewed Two-view x-ray of the chest obtained. Report was reviewed in its entirety. Impression by Dr. Blackwood shows no active cardiopulmonary disease. No change. CT chest angiography for pulmonary embolism was obtained. Report was reviewed in its entirety. Impression by Dr. Blackwood shows chronic Pulmonary interstitial infiltrates not significantly different than old exam. Cardia megaly. Abdominal ascites. Contrast reflux could relate to some congestive heart failure. Facet is not changed compared to old exam. There is aneurysm of the aortic were not significantly changed. Disposition Clinical Impression: Chest pain Disposition: HOME SELF-CARE Condition: Good Instructions (If sedation given, give patient instructions): Chest Pain (ED) Additional Instructions: Follow-up with your primary care physician for recheck in 1-2 days. Return to the emergency department for any new, worsening, or concerning symptoms. Is patient prescribed a controlled substance at d/c from ED?: No Referrals: Devaughn Marino MD [Primary Care Provider] - 1-2 days Time of Disposition: 01:06
[2020-12-13 23:31] VITALS: RESP 16
--- NOTE | 2020-12-14 00:30 | CT ---
EXAMINATION TYPE: CT chest angio for PE DATE OF EXAM: 12/14/2020 COMPARISON: 08/30/2018 HISTORY: CHEST PAIN CT DLP: 201.3 mGycm Automated exposure control for dose reduction was used. IMPRESSION: No evidence of pulmonary embolism. Groundglass pulmonary interstitial infiltrates. No suspicious pulm onary mass. Cardiomegaly. CONTRAST: Performed with IV Contrast, patient injected with 70 mL of Isovue 370. There are 3-D post processed images. There is some groundglass interstitial infiltrates in the mid and lower lung [place]. Heart is enlarge d. There is no pleural effusion. There is no pericardial effusion. Breasts are quite dense. There is contrast reflux into the inferior vena cava. There is evidence of abdominal ascites. Liver is slightl y irregular that could relate to cirrhosis. There is normal contrast opacification of the pulmonary arteries. There are no filling defects. There are no hilar masses. There is 4.6 cm aneurysm of the ascending aorta. There is no dissection. The [place] thorax is intact. There is no compression fracture. There are sternal wires. Impression Groundglass pulmonary interstitial infiltrates not significantly different than old exam. Cardiomegal y. Abdominal ascites. Contrast refluxed could relate to some congestive heart failure. Ascites not ch anged compared to old exam. There is aneurysm of the aortic root not significantly different than old exam.
[2020-12-14] MEDS ORDERED: SODIUM CHLORIDE 0.9% 500 ML 500 ML IV ONE (01:11)
[2020-12-14 03:03] VITALS: BP 94/74; PULSE 75
== END 2020-12-14 03:11 | disposition home or self-care (01) ==
LOC: EC 20:48
DX: R07.9 Chest pain, unspecified (principal); I48.92 Unspecified atrial flutter; J45.909 Unspecified asthma, uncomplicated; Z79.01 Long term (current) use of anticoagulants; Z79.890 Hormone replacement therapy; Z79.899 Other long term (current) drug therapy; Z95.5 Presence of coronary angioplasty implant and graft
CPT/HCPCS: 96374; 96375; 99285; 36415; 93005; 85379; 80053; 83690; 83735; 84484; 85025; 85610; 85730; 81001; 81025; 71046; 71275; J2270; J2405; Q9967

== ENCOUNTER 2020-12-15 09:42 | Observation (INO) | payer OTHER ==
--- NOTE | 2020-12-15 10:12 | ED ---
General Adult HPI - General Chief complaint: Abdominal Pain Stated complaint: abd pain, bowel problems Time Seen by Provider: 12/15/20 09:45 Source: patient, RN notes reviewed, old records reviewed Mode of arrival: ambulatory Limitations: no limitations - History of Present Illness Initial comments: This is a 40-year-old female presents emergency Department complaining of abdominal pain. Patient states it goes from the left to the right side. Patien t states she has a history of ascites because of some liver problems. Patient states she occasionally has to have it drained. Patient states she has no nausea vomiting or diarrhea. Patient denies any fever chills. Patient states in fact she is somewhat constipated. Patient denies any chest pain or difficulty breathing. - Related Data Previous Rx's Medication Instructions Recorded Apixaban [Eliquis] 5 mg PO BID tab 12/09/20 Levothyroxine Sodium [Synthroid] 75 mcg PO DAILY@0630 tab 12/09/20 Metoprolol Tartrate [Lopressor] 12.5 mg PO BID tab 12/09/20 Pantoprazole [Protonix] 40 mg PO AC-BRKFST tablet. 12/09/20 Allergies Allergy/AdvReac Type Severity Reaction Status Date / Time warfarin sodium Allergy Anaphylaxis Verified 12/15/20 09:48 [From Coumadin] peas AdvReac Diarrhea Verified 12/15/20 09:48 Review of Systems ROS Statement: Those systems with pertinent positive or pertinent negative responses have been documented in the HPI. ROS Other: All systems not noted in ROS Statement are negative. 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 7, Past Anesthesia/Blood Transfusion Reactions: Previous Problems w/ Anesthesia Additional Past Anesthesia/Blood Transfusion Reaction / Comment(s): Patient states she is allergic to anesthesia during 2018 heart cath -- had numbness in right face and left hand, states anesthesiologists indicated if next procedure, would have to be adjusted Past Psychological History: No Psychological Hx Reported Smoking Status: Never smoker Past Alcohol Use History: None Reported Past Drug Use History: None Reported - Past Family History Mother Family Medical History: Asthma, Cancer, Hyperlipidemia, Hypertension Additional Family Medical History / Comment(s): Mother had breast CA at age 52 Brother(s) Family Medical History: Asthma Father Family Medical History: Asthma General Exam - General Exam Comments Initial Comments: GENERAL: Patient is well-developed and well-nourished. Patient is nontoxic and well- hydrated and is in mild distress. ENT: Neck is soft and supple. No significant lymphadenopathy is noted. Oropharynx i s clear. Moist mucous membranes. Neck has full range of motion without eliciting any pain. EYES: The sclera were anicteric and conjunctiva were pink and moist. Extraocular movements were intact and pupils were equal round and reactive to light. Eyelids were unremarkable. PULMONARY: Unlabored respirations. Good breath sounds bilaterally. No audible rales rhonchi or wheezing was noted. CARDIOVASCULAR: There is a regular rate and rhythm without any murmurs gallops or rubs. ABDOMEN: Abdomen is diffusely mildly tender. Patient also has distended abdomen. SKIN: Skin is clear with no lesions or rashes and otherwise unremarkable. NEUROLOGIC: Patient is alert and oriented x3. Cranial nerves II through XII are grossly intact. Motor and sensory are also intact. Normal speech, volume and content. Symmetrical smile. MUSCULOSKELETAL: Normal extremities with adequate strength and full range of motion. LYMPHATICS: No significant lymphadenopathy is noted PSYCHIATRIC: Normal psychiatric evaluation. Limitations: no limitations Course Vital Signs 12/15/20 09:44 Temperature 97.4 F L Pulse Rate 60 Respiratory 18 Rate Blood Pressure 119/75 O2 Sat by Pulse 96 Oximetry Medical Decision Making - Medical Decision Making Ultrasound shows some mild to moderate ascites. KUB shows a bubble ascites I spoke with Dr. Marino he wanted the patient admitted admitted the patient I consult the GI. - Lab Data Result diagrams: 12/15/20 10:07 12/15/20 10:07 Lab Results 12/15/20 12/15/20 12/15/20 Range/Units 10:07 10:07 10:07 WBC 3.5 L (3.8-10.6) k/uL RBC 5.36 (3.80-5.40) m/uL Hgb 15.0 (11.4-16.0) gm/dL Hct 45.5 (34.0-46.0) % MCV 84.9 (80.0-100.0) fL MCH 28.0 (25.0-35.0) pg MCHC 33.0 (31.0-37.0) g/dL RDW 14.0 (11.5-15.5) % Plt Count 101 L (150-450) k/uL MPV 10.2 Neutrophils % 76 % Lymphocytes % 12 % Monocytes % 7 % Eosinophils % 2 % Basophils % 1 % Neutrophils # 2.7 (1.3-7.7) k/uL Lymphocytes # 0.4 L (1.0-4.8) k/uL Monocytes # 0.3 (0-1.0) k/uL Eosinophils # 0.1 (0-0.7) k/uL Basophils # 0.0 (0-0.2) k/uL Sodium 140 (137-145) mmol/L Potassium 4.4 (3.5-5.1) mmol/L Chloride 107 (98-107) mmol/L Carbon Dioxide 22 (22-30) mmol/L Anion Gap 11 mmol/L BUN 13 (7-17) mg/dL Creatinine 0.84 (0.52-1.04) mg/dL Est GFR (CKD-EPI)AfAm >90 (>60 ml/min/1.73 sqM) Est GFR (CKD-EPI)NonAf 87 (>60 ml/min/1.73 sqM) Glucose 92 (74-99) mg/dL Calcium 9.4 (8.4-10.2) mg/dL Total Bilirubin 0.5 (0.2-1.3) mg/dL AST 29 (14-36) U/L ALT 15 (4-34) U/L Alkaline Phosphatase 63 (38-126) U/L Total Protein 7.1 (6.3-8.2) g/dL Albumin 4.3 (3.5-5.0) g/dL Amylase 73 (30-110) U/L Lipase 97 (23-300) U/L Urine Color Yellow Urine Appearance Cloudy H (Clear) Urine pH 5.5 (5.0-8.0) Ur Specific [place] 1.026 (1.001-1.035) Urine Protein 1+ H (Negative) Urine Glucose (UA) Negative (Negative) Urine Ketones Negative (Negative) Urine Blood Small H (Negative) Urine Nitrite Negative (Negative) Urine Bilirubin Negative (Negative) Urine Urobilinogen <2.0 (<2.0) mg/dL Ur Leukocyte Esterase Trace H (Negative) Urine RBC 1 (0-5) /hpf Urine WBC 3 (0-5) /hpf Ur Squamous Epith Cells 11 H (0-4) /hpf Urine Mucus Rare H (None) /hpf Disposition Clinical Impression: Abdominal pain, Ascites Disposition: ADMITTED IP TO THIS HOSP Referrals: Devaughn Marino MD [Primary Care Provider] - 1-2 days Time of Disposition: 12:14
--- NOTE | 2020-12-15 10:39 | XR ---
EXAMINATION TYPE: XR KUB DATE OF EXAM: 12/15/2020 Comparison: None Clinical History: 40-year-old female abdominal pain Findings: Median sternotomy wires. Lung bases are clear. No dilated small bowel or air-fluid levels. Paucity of bowel gas within the lower abdomen. No significant stool burden. Impression: No evidence for free air or bowel obstruction. There is paucity of bowel air in the lower abdomen and pelvis. Findings may reflect underlying ascites fluid.
[2020-12-15 10:50] LABS: ALT 15 U/L (4-34); AST 29 U/L (14-36); African American GFR (CKD) >90 (>60 ml/min/1.73 sqM); Albumin 4.3 g/dL (3.5-5.0); Alkaline Phosphatase 63 U/L (38-126); Amylase 73 U/L (30-110); Anion Gap 11 mmol/L; Blood Urea Nitrogen 13 mg/dL (7-17); Calcium 9.4 mg/dL (8.4-10.2); Carbon Dioxide 22 mmol/L (22-30); Chloride 107 mmol/L (98-107); Glucose 92 mg/dL (74-99); Lipase 97 U/L (23-300); Non-African American GFR(CKD) 87 (>60 ml/min/1.73 sqM); Potassium 4.4 mmol/L (3.5-5.1); Sodium 140 mmol/L (137-145); Total Bilirubin 0.5 mg/dL (0.2-1.3); Total Protein 7.1 g/dL (6.3-8.2)
--- NOTE | 2020-12-15 11:07 | US ---
EXAMINATION TYPE: US abdomen limited DATE OF EXAM: 12/15/2020 COMPARISON: NONE CLINICAL HISTORY: 40-year-old female abdominal pain, ascites. Evaluate for ascites TECHNIQUE: Multiple sonographic images of the 4 abdominal quadrants for assessment of ascites. FINDINGS: All 4 abdominal quadrants scanned, there is only mild to moderate ascites. IMPRESSION: Mild to moderate abdominal ascites.
[2020-12-15 11:18] LABS: Appearance,Urine Cloudy (Clear); Bilirubin,Urine Negative (Negative); Blood,Urine Small (Negative); Color,Urine Yellow; Glucose,Urine (UA) Negative (Negative); Ketones,Urine Negative (Negative); Leukocyte Esterase,Urine Trace (Negative); Mucus,Urine Rare /hpf; Nitrite,Urine Negative (Negative); PH, Urine 5.5 (5.0-8.0); Protein,Urine 1+ (Negative); RBC,Urine 1 /hpf (0-5); Specific Gravity,Urine 1.026 (1.001-1.035); Squamous Epithelial Cell,Urine 11 /hpf (0-4); Urobilinogen,Urine <2.0 mg/dL (<2.0); WBC,Urine 3 /hpf (0-5)
[2020-12-15 11:26] LABS: Basophils % (A) 1 %; Eosinophils # (A) 0.1 k/uL (0-0.7); Eosinophils % (A) 2 %; HCT 45.5 % (34.0-46.0); Lymphocytes # (A) 0.4 k/uL (1.0-4.8); Lymphocytes % (A) 12 %; MCV 84.9 fL (80.0-100.0); Mean Platelet Volume 10.2; Monocytes # (A) 0.3 k/uL (0-1.0); Monocytes % (A) 7 %; Neutrophils # (A) 2.7 k/uL (1.3-7.7); Neutrophils % (A) 76 %; Platelet Count 101 k/uL (150-450); RBC 5.36 m/uL (3.80-5.40); WBC 3.5 k/uL (3.8-10.6)
[2020-12-15] MEDS: PANTOPRAZOLE 40 MG TABLET PO SCH (15:29)
[2020-12-15] MEDS: METOPROLOL TARTRATE 12.5 MG TAB PO SCH (20:26)
[2020-12-15] MEDS: APIXABAN 5 MG TAB PO SCH (20:26)
[2020-12-16] MEDS: HYDROmorphone 0.5 MG/0.5 ML SYRINGE IVP PRN ×2 (00:03→05:57)
[2020-12-16] MEDS: LEVOTHYROXINE 75 MCG TAB PO SCH (05:40)
[2020-12-16] MEDS: PANTOPRAZOLE 40 MG TABLET PO SCH (10:09)
[2020-12-16] MEDS ORDERED: SENNOSIDES 8.6 MG TAB PO PRN (10:37)
[2020-12-16] MEDS ORDERED: SENNOSIDES 8.6 MG TAB PO STA (10:37)
[2020-12-16] MEDS: APIXABAN 5 MG TAB PO SCH (10:51)
[2020-12-16] MEDS: METOPROLOL TARTRATE 12.5 MG TAB PO SCH ×2 (11:10→20:13)
[2020-12-16] MEDS: ACETAMINOPHEN TAB 500 MG TAB PO PRN ×2 (11:27→20:12)
--- NOTE | 2020-12-16 15:55 | P.CONS ---
History of Present Illness - Reason for Consult Consult date: 12/16/20 Ascites Requesting physician: Devaughn Marino - Chief Complaint Abdominal pain - History of Present Illness This is a pleasant 40-year-old white female with a history of genital heart disease and cryptogenic cirrhosis of the liver which was diagnosed several years ago and used to follow-up with [facility] who presented to the emergency department yesterday with plans of abdominal pain and distention. Patient states her cirrhosis was cardiac related. She is not seeing any gastroenterology for the last year. She has not been taking any of her diuretics as prescribed. She is also on Eliquis, however is unsure why. Patient had not filled her last prescription and last dose stated was December 09, however Eliquis was ordered yesterday and she did have a dose yesterday evening. Her last paracentesis was February 2020. She states she has abdominal pain and distention currently, no nausea or vomiting. She has been complaining of headache. And constipation. Patient states she's not had a bowel movement since Wednesday. Is her usual bowel movements are twice a day. Abdominal ultrasound shows mild to moderate abdominal ascites. WBC 3.5, hemoglobin 15, hematocrit 45, platelets 101,000, INR 1.2, total bilirubin 0.5, alkaline phosphatase 63, AST 29, ALT 15, amylase 73, lipase 97 Review of Systems REVIEW OF SYSTEMS: CARDIOPULMONARY: No chest pain or shortness of breath. Gastrointestinal: Reported abdominal pain and distention. No nausea or vomiting. No hematemesis, coffee-ground emesis. No rectal bleeding, or melena. GENITOURINARY: No dysuria or hematuria. MUSCULOSKELETAL: Reports normal range of motion., Joint pain. SKIN: No rashes. No jaundice. ENDOCRINE: No chills, fevers. No excessive weight gain or loss. No polydipsia or polyuria. PSYCHIATRIC: Unremarkable. NEUROLOGY: No change in mental status. Denies dizziness. Positive for headache ENT: Vision unremarkable. CONSTITUTIONAL: No recent weight loss. No fever, chills, night sweats. 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 7, Past Anesthesia/Blood Transfusion Reactions: Previous Problems w/ Anesthesia Additional Past Anesthesia/Blood Transfusion Reaction / Comm: Patient states she is allergic to anesthesia during 2018 heart cath -- had numbness in right face and left hand, states anesthesiologists indicated if next procedure, would have to be adjusted Past Psychological History: No Psychological Hx Reported Smoking Status: Never smoker Past Alcohol Use History: None Reported Past Drug Use History: None Reported - Past Family History Mother Family Medical History: Asthma, Cancer, Hyperlipidemia, Hypertension Additional Family Medical History / Comment(s): Mother had breast CA at age 52 Brother(s) Family Medical History: Asthma Father Family Medical History: Asthma Medications and Allergies Home Medications Medication Instructions Recorded Confirmed Type Apixaban [Eliquis] 5 mg PO BID tab 12/09/20 12/15/20 Rx Levothyroxine Sodium [Synthroid] 75 mcg PO DAILY@0630 tab 12/09/20 12/15/20 Rx Metoprolol Tartrate [Lopressor] 12.5 mg PO BID tab 12/09/20 12/15/20 Rx Pantoprazole [Protonix] 40 mg PO AC-BRKFST tablet. 12/09/20 12/15/20 Rx Allergies Allergy/AdvReac Type Severity Reaction Status Date / Time warfarin sodium Allergy Anaphylaxis Verified 12/15/20 12:18 [From Coumadin] peas AdvReac Diarrhea Verified 12/15/20 12:18 Physical Exam Vitals: Vital Signs Temp Pulse Pulse Resp BP BP Pulse Ox 12/16/20 09:22 54 L 92/65 96 12/16/20 07:00 97.6 F 54 L 16 110/67 95 12/16/20 02:00 97.3 F L 50 L 16 93/61 96 12/15/20 20:00 97.8 F 57 L 16 85/59 97 12/15/20 13:30 97.5 F L 60 16 112/77 97 12/15/20 13:04 65 18 108/64 96 Intake and Output 12/15/20 12/16/20 12/16/20 22:59 06:59 14:59 Other: # Voids 1 2 General appearance: The patient is alert, oriented, appears in no acute distress. HET: Head is normocephalic and atraumatic. Conjunctiva pink. Sclera anicteric. Neck: Supple without lymphadenopathy. Trachea midline. Heart: S1 S2. Regular rate and rhythm. Lungs: Clear to auscultation. Abdomen: Soft, he was tenderness, mildly distended with bowel sounds. Skin: No rashes. No jaundice. Extremities: Normal skin color and turgor. No pedal edema. Neurological: No focal deficits. Alert and oriented 3. Results Results: Abdominal ultrasound: Shows mild to moderate abdominal ascites KUB x-ray: No evidence for free air or bowel obstruction. There is possibility of bowel air in the lower abdomen and pelvis. Findings may reflect underlying ascites fluid. No significant stool burden. CBC & Chem 7: 12/15/20 10:07 12/15/20 10:07 Labs: Abnormal Lab Results - Last 24 Hours (Table) 12/15/20 12/15/20 Range/Units 10:07 10:07 WBC 3.5 L (3.8-10.6) k/uL Plt Count 101 L (150-450) k/uL Lymphocytes # 0.4 L (1.0-4.8) k/uL Urine Appearance Cloudy H (Clear) Urine Protein 1+ H (Negative) Urine Blood Small H (Negative) Ur Leukocyte Esterase Trace H (Negative) Ur Squamous Epith Cells 11 H (0-4) /hpf Urine Mucus Rare H (None) /hpf Assessment and Plan (1) Cirrhosis of liver with ascites Narrative/Plan: 40-year-old female with ascites secondary to portal hypertension from underlying cirrhosis of the liver. She has a history of cryptogenic cirrhosis of the liver diagnosed several years ago and has required paracentesis in the past. Her last paracentesis was in February 2020. She does not follow up with any [facility] professor, she followed up with [facility] several years ago. She has not been taking her diuretics as prescribed. She presented to the emergency department with complaints of abdominal pain and distention. Limited Ultrasound of the abdomen ordered and reviewed, mild to moderate amount of ascites. LFTs are normal. Current Visit: Yes Status: Acute Code(s): K74.60 - UNSPECIFIED CIRRHOSIS OF LIVER; R18.8 - OTHER ASCITES SNOMED Code(s): 38869389 (2) History of congenital heart disease Current Visit: No Status: Chronic Code(s): Z87.74 - PERSONAL HISTORY OF CONGENITAL MALFORM OF HEART AND CIRC SYS SNOMED Code(s): 706608316 Plan: 1. Continue symptomatic and supportive care 2. Patient may have a low-sodium diet 3. Ultrasound of the abdomen reviewed 4. Will start on Lasix 20 mg daily and Aldactone 50 mg daily 5. Will order therapeutic paracentesis for tomorrow 6. Will recommend giving albumin infusion at the time of paracentesis 7. Hold Eliquis for paracentesis 8. Repeat INR Thank you for this consultation, we will continue to follow Dr. Sosa Nix I agree with the dictator's note, documented as a scribe by Nelda Womack.
[2020-12-17] MEDS: LEVOTHYROXINE 75 MCG TAB PO SCH (06:03)
[2020-12-17] MEDS: METOPROLOL TARTRATE 12.5 MG TAB PO SCH ×2 (08:25→19:39)
[2020-12-17] MEDS: PANTOPRAZOLE 40 MG TABLET PO SCH (08:29)
[2020-12-17] MEDS: SPIRONOLACTONE 25 MG TAB PO SCH (08:29)
[2020-12-17] MEDS: FUROSEMIDE 20 MG TAB PO SCH (08:29)
--- NOTE | 2020-12-17 08:43 | P.PN ---
Subjective Progress Note Date: 12/17/20 Principal diagnosis: Abdominal pain, ascites Patient seen and examined lying in bed. She is scheduled for paracentesis today. She denies any nausea or vomiting. Date she still has some abdominal discomfort with distention. She states she has not had a bowel movement yet. Objective - Vital Signs Vital signs: Vital Signs Temp 97.9 F 12/17/20 02:00 Pulse 63 12/17/20 02:00 Resp 16 12/17/20 02:00 BP 98/61 12/17/20 02:00 Pulse Ox 92 L 12/17/20 02:00 Intake & Output 12/16/20 12/17/20 12/17/20 18:59 06:59 18:59 Other: # Voids 2 - Exam General appearance: The patient is alert, oriented, appears in no acute distress. HET: Head is normocephalic and atraumatic. Conjunctiva pink. Sclera anicteric. Neck: Supple without lymphadenopathy. Abdomen: Soft, mild diffuse tenderness, mildly distended with bowel sounds. No guarding or rigidity. Extremities: Normal skin color and turgor. No pedal edema Skin: No rashes, no jaundice Neurological: No focal deficits. Alert and oriented 3. - Labs CBC & Chem 7: 12/15/20 10:07 12/15/20 10:07 Assessment and Plan (1) Cirrhosis of liver with ascites Narrative/Plan: 40-year-old female with ascites secondary to portal hypertension from underlying cirrhosis of the liver. She has a history of cryptogenic cirrhosis of the liver diagnosed several years ago and has required paracentesis in the past. Her last paracentesis was in February 2020. She does not follow up with any [facility], she followed up with [facility] several years ago. She has not been taking her diuretics as prescribed. She presented to the emergency department with complaints of abdominal pain and distention. Limited Ultrasound of the abdomen ordered and reviewed, mild to moderate amount of ascites. LFTs are normal. Current Visit: Yes Status: Acute Code(s): K74.60 - UNSPECIFIED CIRRHOSIS OF LIVER; R18.8 - OTHER ASCITES SNOMED Code(s): 89284968 (2) History of congenital heart disease Current Visit: No Status: Chronic Code(s): Z87.74 - PERSONAL HISTORY OF CONGENITAL MALFORM OF HEART AND CIRC SYS SNOMED Code(s): 435189426 Plan: 1. Continue symptomatic and supportive care 2. Patient may have a low-sodium diet 3. Ultrasound of the abdomen reviewed 4. Continue Lasix 20 mg daily and Aldactone 50 mg daily 5. Paracentesis ordered 6. Albumin pre and post paracentesis 7. Hold Eliquis for paracentesis 8. Repeat INR Thank you for this consultation, we will continue to follow Dr. Sosa Nix I agree with the dictator's note, documented as a scribe by Nelda Womack.
[2020-12-17] MEDS ORDERED: ALBUMIN HUMAN 25% 50 ML in EMPTY BAG 1 BAG IVPB SCH (08:45)
[2020-12-17] MEDS: polyethylene glycoL 3350 17 GM POWD.PACK PO SCH (09:56)
[2020-12-17 10:46] LABS: INR 1.16 (0.90-1.11); Prothrombin Time 12.5 sec (9.9-11.9)
--- NOTE | 2020-12-17 19:17 | P.HPIM ---
History of Present Illness H&P Date: 12/16/20 Asuncion Rizzo is a 40-year-old female who presented to [facility] with a chief complaint of abdominal pain and abdominal distention. She was evaluated in the emergency room, vital examination on presentation revealed a temperature of 97.4 pulse 60 respiration 18 blood pressure 119/75 pulse ox 96% on room air, laboratory data revealed a white blood count of 3.5 hemoglobin 15.0 platelet count 101 BUN 13 creatinine 0.84 liver enzymes normal amylase and lipase are normal COVID-19 testing was negative. Abdominal x-ray revealed no evidence of free air or bowel obstruction there was possible ascites fluid in the abdomen, abdomen ultrasound revealed evidence of mild to moderate abdominal ascites. Patient has a known history of congenital heart disease, she had cardiac surgery in childhood, she was also diagnosed several years ago with liver cirrhosis related to her congenital heart disease, she had multiple paracenteses, the last one was 2 years ago, she was stable on medication until recently, patient stopped taking all her medications because she was trying to get , however her condition decompensated she had 2 admissions and multiple ER visits over the last 1 month. 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 7, Past Anesthesia/Blood Transfusion Reactions: Previous Problems w/ Anesthesia Additional Past Anesthesia/Blood Transfusion Reaction / Comment(s): Patient states she is allergic to anesthesia during 2018 heart cath -- had numbness in right face and left hand, states anesthesiologists indicated if next procedure, would have to be adjusted Past Psychological History: No Psychological Hx Reported Smoking Status: Never smoker Past Alcohol Use History: None Reported Past Drug Use History: None Reported - Past Family History Mother Family Medical History: Asthma, Cancer, Hyperlipidemia, Hypertension Additional Family Medical History / Comment(s): Mother had breast CA at age 52 Brother(s) Family Medical History: Asthma Father Family Medical History: Asthma Medications and Allergies Home Medications Medication Instructions Recorded Confirmed Type Apixaban [Eliquis] 5 mg PO BID tab 12/09/20 12/15/20 Rx Levothyroxine Sodium [Synthroid] 75 mcg PO DAILY@0630 tab 12/09/20 12/15/20 Rx Metoprolol Tartrate [Lopressor] 12.5 mg PO BID tab 12/09/20 12/15/20 Rx Pantoprazole [Protonix] 40 mg PO AC-BRKFST tablet. 12/09/20 12/15/20 Rx Allergies Allergy/AdvReac Type Severity Reaction Status Date / Time warfarin sodium Allergy Anaphylaxis Verified 12/15/20 12:18 [From Coumadin] peas AdvReac Diarrhea Verified 12/15/20 12:18 Physical Exam Vitals: Vital Signs Temp Pulse Pulse Resp BP BP Pulse Ox 12/16/20 09:22 54 L 92/65 96 12/16/20 07:00 97.6 F 54 L 16 110/67 95 12/16/20 02:00 97.3 F L 50 L 16 93/61 96 12/15/20 20:00 97.8 F 57 L 16 85/59 97 12/15/20 13:30 97.5 F L 60 16 112/77 97 12/15/20 13:04 65 18 108/64 96 Intake and Output 12/15/20 12/16/20 12/16/20 22:59 06:59 14:59 Other: # Voids 1 2 In general patient is alert and oriented ?-3 in no distress HEENT head normocephalic and atraumatic Neck is supple no JVD no goiter no lymphadenopathy no carotid bruit Chest examination is clear to auscultation no crackles no wheezing Cardiac exam reveals regular heart sounds S1 and S2 no gallops no murmurs Abdomen is soft and slightly distended with mild diffuse tenderness Extremity exam reveals 2 + edema no cyanosis or clubbing Neurological examination reveals no gross focal deficits Results CBC & Chem 7: 12/15/20 10:07 12/15/20 10:07 Thrombosis Risk Factor Assmnt - Choose All That Apply Any of the Below Risk Factors Present?: No Other Risk Factors: No Other congenital or acquired thrombophilia - If yes, enter type in comment: No Thrombosis Risk Factor Assessment Level: Very Low Risk Assessment and Plan Plan: 1. Congenital heart disease, with previous cardiac surgery in childhood 2. 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 Underlying history of hypothyroidism 4. Noncompliance with medication regimen At this time patient is admitted to medical floor, gastroenterology consultation was requested in regard to abdominal pain and abdominal distention with ascites Will resume home medications including Lasix and Aldactone Prolonged counseling was done in regard to taking medications on a regular basis Patient was advised to see a higher risk hydro station operator for evaluation and assessment whether it is safe and feasible for her to become and for management of her medication regimen while in Patient seems to understand counseling well.
--- NOTE | 2020-12-17 19:17 | P.PN ---
Subjective Progress Note Date: 12/17/20 Asuncion Rizzo is a 40-year-old female who presented to [facility] with a chief complaint of abdominal pain and abdominal distention. She was evaluated in the emergency room, vital examination on presentation revealed a temperature of 97.4 pulse 60 respiration 18 blood pressure 119/75 pulse ox 96% on room air, laboratory data revealed a white blood count of 3.5 hemoglobin 15.0 platelet count 101 BUN 13 creatinine 0.84 liver enzymes normal amylase and lipase are normal COVID-19 testing was negative. Abdominal x-ray revealed no evidence of free air or bowel obstruction there was possible ascites fluid in the abdomen, abdomen ultrasound revealed evidence of mild to moderate abdominal ascites. Patient has a known history of congenital heart disease, she had cardiac surgery in childhood, she was also diagnosed several years ago with liver cirrhosis related to her congenital heart disease, she had multiple paracenteses, the last one was 2 years ago, she was stable on medication until recently, patient stopped taking all her medications because she was trying to get , however her condition decompensated she had 2 admissions and multiple ER visits over the last 1 month. Objective - Vital Signs Vital signs: Vital Signs Temp 98.0 F 12/17/20 08:00 Pulse 49 L 12/17/20 08:00 Resp 18 12/17/20 08:00 BP 96/65 12/17/20 08:00 Pulse Ox 97 12/17/20 08:00 Intake & Output 12/16/20 12/17/20 12/17/20 18:59 06:59 18:59 Other: # Voids 2 - Exam In general patient is alert and oriented x 3 in no distress HEENT head normocephalic and atraumatic Neck is supple no JVD no goiter no lymphadenopathy no carotid bruit Chest examination is clear to auscultation no crackles no wheezing Cardiac exam reveals regular heart sounds S1 and S2 no gallops no murmurs Abdomen is soft and slightly distended with mild diffuse tenderness Extremity exam reveals 2 + edema no cyanosis or clubbing Neurological examination reveals no gross focal deficits - Labs CBC & Chem 7: 12/15/20 10:07 12/15/20 10:07 Assessment and Plan Plan: 1. Congenital heart disease, with previous cardiac surgery in childhood 2. 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 Underlying history of hypothyroidism 4. Noncompliance with medication regimen At this time patient is admitted to medical floor, gastroenterology consultation was requested in regard to abdominal pain and abdominal distention with ascites Will resume home medications including Lasix and Aldactone Prolonged counseling was done in regard to taking medications on a regular basis Patient was advised to see a higher risk veterinary hospital shift lead for evaluation and assessment whether it is safe and feasible for her to become and for management of her medication regimen while in Patient seems to understand counseling well. Patient was scheduled to have paracentesis today. She was maintained on Eliquis prior to admission, which was stopped on admission in anticipation of paracentesis however radiologist felt was safer to wait till tomorrow for procedure. Continue was current medications, gastroenterology following. Patient should be inpatient full admission diagnosis is liver cirrhosis with ascites.
[2020-12-18] MEDS: LEVOTHYROXINE 75 MCG TAB PO SCH (05:20)
[2020-12-18 08:17] LABS: Basophils % (A) 1 %; Eosinophils # (A) 0.2 k/uL (0-0.7); Eosinophils % (A) 4 %; HCT 42.9 % (34.0-46.0); HGB 14.5 gm/dL (11.4-16.0); Lymphocytes # (A) 0.6 k/uL (1.0-4.8); Lymphocytes % (A) 15 %; MCH 28.9 pg (25.0-35.0); MCHC 33.9 g/dL (31.0-37.0); MCV 85.1 fL (80.0-100.0); Monocytes # (A) 0.4 k/uL (0-1.0); Monocytes % (A) 10 %; Neutrophils # (A) 2.9 k/uL (1.3-7.7); Neutrophils % (A) 69 %; Platelet Count 124 k/uL (150-450); RBC 5.04 m/uL (3.80-5.40); RDW 13.5 % (11.5-15.5); WBC 4.1 k/uL (3.8-10.6)
[2020-12-18] MEDS: PANTOPRAZOLE 40 MG TABLET PO SCH (08:31)
[2020-12-18] MEDS: METOPROLOL TARTRATE 12.5 MG TAB PO SCH (08:32)
[2020-12-18] MEDS: polyethylene glycoL 3350 17 GM POWD.PACK PO SCH (08:33)
[2020-12-18] MEDS: FUROSEMIDE 20 MG TAB PO SCH (08:56)
[2020-12-18] MEDS: SPIRONOLACTONE 25 MG TAB PO SCH (08:56)
[2020-12-18] MEDS: ALBUMIN HUMAN 25% 50 ML in EMPTY BAG 1 BAG IVPB SCH ×2 (09:25→10:18)
[2020-12-18 10:37] VITALS: TEMP 97.7
[2020-12-18 10:38] VITALS: RESP 16
--- NOTE | 2020-12-18 11:22 | US ---
EXAMINATION TYPE: US paracentesis abd w/image DATE OF EXAM: 12/18/2020 COMPARISON: NONE HISTORY: Ascites. PROCEDURE: Maximal barrier technique was utilized. The skin overlying a suitable pocket of fluid was localized with ultrasound and the overlying skin was prepped and draped. Ultrasound was utilized with sterile technique. Lidocaine was used for local anesthesia and a skin lorrie made with a scalpel. Catheter was advanced under direct ultrasound guidance into a suitable pocket of fluid and approximately 50cc of y ellow fluid were removed. Catheter was withdrawn and hemostasis achieved. There is no immediate com plication; the patient is discharged in stable condition. IMPRESSION: STATUS POST ULTRASOUND GUIDED PARACENTESIS FOR PALLIATION OF ASCITES. THIS PROCEDURE WA S PERFORMED BY THE UNDERSIGNED.
--- NOTE | 2020-12-18 11:38 | P.PN ---
Subjective Progress Note Date: 12/18/20 Principal diagnosis: Abdominal pain, ascites Patient was seen and examined today. She states she has less abdominal pain and less distention. Denies any nausea or vomiting. She had several bowel movements yesterday. She is awaiting her paracentesis. Objective - Vital Signs Vital signs: Vital Signs Temp 97.5 F L 12/18/20 07:34 Pulse 47 L 12/18/20 07:34 Resp 17 12/18/20 07:34 BP 93/61 12/18/20 07:34 Pulse Ox 94 L 12/18/20 07:34 Intake & Output 12/17/20 12/18/20 12/18/20 18:59 06:59 18:59 Other: # Voids 1 # Bowel Movements 2 - Exam General appearance: The patient is alert, oriented, appears in no acute dis tress. HET: Head is normocephalic and atraumatic. Conjunctiva pink. Sclera anicteric. Neck: Supple without lymphadenopathy. Abdomen: Soft, nontender,, mildly distended with bowel sounds. No guarding or rigidity. Extremities: Normal skin color and turgor. No pedal edema Skin: No rashes, no jaundice Neurological: No focal deficits. Alert and oriented 3. - Labs CBC & Chem 7: 12/18/20 07:10 12/15/20 10:07 Labs: Abnormal Lab Results - Last 24 Hours (Table) 12/17/20 12/18/20 Range/Units 04:27 07:10 Plt Count 124 L (150-450) k/uL Lymphocytes # 0.6 L (1.0-4.8) k/uL PT 12.5 H (9.9-11.9) sec INR 1.16 H (0.90-1.11) Assessment and Plan (1) Cirrhosis of liver with ascites Narrative/Plan: 40-year-old female with ascites secondary to portal hypertension from underlying cirrhosis of the liver. She has a history of cryptogenic cirrhosis of the liver diagnosed several years ago and has required paracentesis in the past. Her last paracentesis was in February 2020. She does not follow up with any police liaison, she followed up with [facility] several years ago. She has not been taking her diuretics as prescribed. She presented to the emergency department with complaints of abdominal pain and distention. Limited Ultrasound of the abdomen ordered and reviewed, mild to moderate amount of ascites. LFTs are normal. Current Visit: Yes Status: Acute Code(s): K74.60 - UNSPECIFIED CIRRHOSIS OF LIVER; R18.8 - OTHER ASCITES SNOMED Code(s): 27334095 (2) History of congenital heart disease Current Visit: No Status: Chronic Code(s): Z87.74 - PERSONAL HISTORY OF CONGENITAL MALFORM OF HEART AND CIRC SYS SNOMED Code(s): 571479101 Plan: 1. Continue symptomatic and supportive care 2. Low-sodium diet 3. Ultrasound of the abdomen reviewed 4. Continue Lasix 20 mg daily and Aldactone 50 mg daily 5. Paracentesis ordered 6. Hold Eliquis for paracentesis may resume following 1. Patient may be discharged home after paracentesis with follow-up with gastroenterology services discussed importance of compliance with medications and continuing on diuretics. Thank you for this consultation, we will continue to follow Dr. Sosa Nxi I agree with the dictator's note, documented as a scribe by Nelda Womack.
[2020-12-18 11:41] VITALS: BP 103/72; PULSE 53
[2020-12-18] MEDS: ACETAMINOPHEN TAB 500 MG TAB PO PRN (11:41)
--- NOTE | 2020-12-18 11:56 | P.DS ---
Providers Date of admission: 12/15/20 12:16 Expected date of discharge: 12/18/20 Attending physician: Devaughn Marino Consults: 12/16/20 08:00 Consult Physician Urgent Consulting Provider: Anne Marie Nix Consult Reason/Comments: Abdominal pain, ascites Do you want consulting provider notified?: Yes Primary care physician: Devaughnrie P[facility]rezNed [facility] Course: Discharge Diagnosis 1. Congenital heart disease, with previous cardiac surgery in childhood 2. 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 Underlying history of hypothyroidism 4. Noncompliance with medication regimen At this time patient is admitted to medical floor, gastroenterology consultation was requested in regard to abdominal pain and abdominal distention with ascites Will resume home medications including Lasix and Aldactone Prolonged counseling was done in regard to taking medications on a regular basis Patient was advised to see a higher risk dining room host for evaluation and assessment whether it is safe and feasible for her to become and for management of her medication regimen while in Patient seems to understand counseling well. S/p Paracentesis approx 50cc removed Hospital course Asuncion Rizzo is a 40-year-old female who presented to [facility] with a chief complaint of abdominal pain and abdominal distention. She was evaluated in the emergency room, vital examination on presentation revealed a temperature of 97.4 pulse 60 respiration 18 blood pressure 119/75 pulse ox 96% on room air, laboratory data revealed a white blood count of 3.5 hemoglobin 15.0 platelet count 101 BUN 13 creatinine 0.84 liver enzymes normal amylase and lipase are normal COVID-19 testing was negative. Abdominal x-ray revealed no evidence of free air or bowel obstruction there was possible ascites fluid in the abdomen, abdomen ultrasound revealed evidence of mild to moderate abdominal ascites. Patient has a known history of congenital heart disease, she had cardiac surgery in childhood, she was also diagnosed several years ago with liver cirrhosis related to her congenital heart disease, she had multiple paracenteses, the last one was 2 years ago, she was stable on medication until recently, patient stopped taking all her medications because she was trying to get , however her condition decompensated she had 2 admissions and multiple ER visits over the last 1 month. On 12/18/2020 Patient is alert and oriented x 3. s/p paracentesis with 50cc removed. cleared for d/c per GI services. Patient educated on the importance of close follow up and medication compliance. Patient verbalized understanding. Denies any chest pain or shortness of breath. Denies any nausea vomiting or diarrhea. Denies any urinary burning or frequency. Patient Condition at Discharge: Stable Plan - Discharge Summary Discharge Rx Participant: No New Discharge Prescriptions: New Spironolactone [Aldactone] 50 mg PO DAILY 30 Days #60 tab Furosemide [Lasix] 20 mg PO DAILY 30 Days #30 tab Continue Apixaban [Eliquis] 5 mg PO BID tab Metoprolol Tartrate [Lopressor] 12.5 mg PO BID tab Pantoprazole [Protonix] 40 mg PO AC-BRKFST tablet. Levothyroxine Sodium [Synthroid] 75 mcg PO DAILY@0630 tab Discharge Medication List Apixaban [Eliquis] 5 mg PO BID tab 12/09/20 [Rx] Levothyroxine Sodium [Synthroid] 75 mcg PO DAILY@0630 tab 12/09/20 [Rx] Metoprolol Tartrate [Lopressor] 12.5 mg PO BID tab 12/09/20 [Rx] Pantoprazole [Protonix] 40 mg PO AC-BRKFST tablet. 12/09/20 [Rx] Furosemide [Lasix] 20 mg PO DAILY 30 Days #30 tab 12/18/20 [Rx] Spironolactone [Aldactone] 50 mg PO DAILY 30 Days #60 tab 12/18/20 [Rx] Follow up Appointment(s)/Referral(s): Tatiana Weber PAC [REFERRING] - 1 Week Devaughn Marino MD [Primary Care Provider] - 1-2 days
[2020-12-18 16:05] LABS: African American GFR (CKD) 81.6 (60.0-200.0); Albumin/Globulin Ratio 1.48 (1.60-3.17); Anion Gap 8.3 mmol/L (4.00-12.00); Calcium 8.7 mg/dL (8.7-10.3); Carbon Dioxide 19.7 mmol/L (21.6-31.8); Globulin 2.7 g/dL (1.6-3.3); Non-African American GFR(CKD) 70.4 (60.0-200.0); Potassium 4.5 mmol/L (3.5-5.5); Total Bilirubin 0.7 mg/dL (0.2-1.2); Total Protein 6.7 g/dL (6.2-8.2)
== END 2020-12-18 14:14 | disposition home or self-care (01) ==
LOC: EC 09:42 → 6PED 12:16 → 6NMEDSUR 13:02
PROVIDERS: ADMIT Internal Medicine; ATTEND Internal Medicine
DX: R18.8 Other ascites (principal); K74.69 Other cirrhosis of liver; K59.00 Constipation, unspecified; J45.909 Unspecified asthma, uncomplicated; E03.9 Hypothyroidism, unspecified; I48.92 Unspecified atrial flutter; R51.9 Headache, unspecified; Z91.14 Patient's other noncompliance with medication regimen; Z20.822 Contact with and (suspected) exposure to COVID-19; Z79.01 Long term (current) use of anticoagulants; Z79.890 Hormone replacement therapy; Z88.8 Allergy status to other drugs, medicaments and biological substances; Z91.018 Allergy to other foods; Z95.1 Presence of aortocoronary bypass graft; Z98.891 History of uterine scar from previous surgery; Z88.4 Allergy status to anesthetic agent; Z87.74 Personal history of (corrected) congenital malformations of heart and circulatory system; Z82.49 Family history of ischemic heart disease and other diseases of the circulatory system; Z82.5 Family history of asthma and other chronic lower respiratory diseases; Z80.3 Family history of malignant neoplasm of breast; Z83.49 Family history of other endocrine, nutritional and metabolic diseases
CPT/HCPCS: 96376; 96374; 99285; 36415; 80053 ×2; 82150; 83690; 85025 ×2; 85610; 81001; 87635; 74018; 76705; 49083; G0378 ×5; P9047; J1170

== ENCOUNTER 2020-12-20 15:48 | Emergency (ER) | payer OTHER ==
[2020-12-20 16:09] VITALS: BP 109/71; PULSE 67; RESP 18; TEMP 98.2
[2020-12-20] MEDS ORDERED: MORPHINE SULFATE 4 MG/ML SYRINGE IV STA (16:19)
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
[2020-12-20 16:56] LABS: Basophils % (A) 1 %; Eosinophils # (A) 0.1 k/uL (0-0.7); Eosinophils % (A) 2 %; HCT 43.6 % (34.0-46.0); HGB 14.2 gm/dL (11.4-16.0); Lymphocytes # (A) 0.4 k/uL (1.0-4.8); Lymphocytes % (A) 11 %; MCH 27.6 pg (25.0-35.0); MCHC 32.6 g/dL (31.0-37.0); MCV 84.6 fL (80.0-100.0); Mean Platelet Volume 9.5; Monocytes # (A) 0.3 k/uL (0-1.0); Monocytes % (A) 7 %; Neutrophils # (A) 3.2 k/uL (1.3-7.7); Neutrophils % (A) 78 %; Platelet Count 119 k/uL (150-450); RBC 5.15 m/uL (3.80-5.40); RDW 13.8 % (11.5-15.5); WBC 4.1 k/uL (3.8-10.6)
[2020-12-20 17:07] LABS: ALT 13 U/L (4-34); AST 28 U/L (14-36); African American GFR (CKD) >90 (>60 ml/min/1.73 sqM); Albumin 4.8 g/dL (3.5-5.0); Alkaline Phosphatase 54 U/L (38-126); Anion Gap 10 mmol/L; Blood Urea Nitrogen 14 mg/dL (7-17); Calcium 9.8 mg/dL (8.4-10.2); Carbon Dioxide 25 mmol/L (22-30); Chloride 103 mmol/L (98-107); Glucose 91 mg/dL (74-99); Non-African American GFR(CKD) >90 (>60 ml/min/1.73 sqM); Potassium 4.2 mmol/L (3.5-5.1); Sodium 138 mmol/L (137-145); Total Bilirubin 0.9 mg/dL (0.2-1.3); Total Protein 7.8 g/dL (6.3-8.2)
== END 2020-12-20 17:50 | disposition home or self-care (01) ==
LOC: EC 15:48
DX: R10.31 Right lower quadrant pain (principal); I48.92 Unspecified atrial flutter; J45.909 Unspecified asthma, uncomplicated; Z79.01 Long term (current) use of anticoagulants; Z79.890 Hormone replacement therapy; Z79.899 Other long term (current) drug therapy; Z95.1 Presence of aortocoronary bypass graft; Z98.890 Other specified postprocedural states
CPT/HCPCS: 96374 ×2; 99284 ×2; 36415; 80053; 85025; J2270

== ENCOUNTER 2020-12-27 21:50 | Observation (INO) | payer OTHER ==
[2020-12-27 22:00] VITALS: TEMP 97.4
[2020-12-27] MEDS ORDERED: SODIUM CHLORIDE 0.9% 1,000 ML IV STA ×2 (22:13)
[2020-12-27] MEDS ORDERED: SODIUM CHLORIDE 0.9% 500 ML 500 ML IV STA (22:13)
[2020-12-27] MEDS ORDERED: DILTIAZEM DRIP BOLUS FROM BAG 1 MG SOLN IV ONE (22:14)
[2020-12-27] MEDS: DILTIAZEM 125 MG in SODIUM CHLORIDE 0.9% 100 ML IV SCH (22:27)
--- NOTE | 2020-12-27 22:35 | ED ---
Chest Pain HPI - General Chief Complaint: Chest Pain Stated Complaint: Chest Pain Time Seen by Provider: 12/27/20 22:12 Source: patient, RN notes reviewed, old records reviewed Mode of arrival: ambulatory Limitations: no limitations - History of Present Illness Initial Comments: This is a 40-year-old female DF for evaluation. Patient is known this facility for history of heart disease. Patient presents with significantly elevated heart rate shortness of breath. Patient has history of spontaneous procedure heart disease cirrhosis. Coming with severe shortness of breath palpitations and chest MD Complaint: chest pain, other (Shortness of breath) -: days(s) Onset: during rest, during exertion Pain Location: substernal, left chest Pain Radiation: none Severity: moderate Severity scale (1-10): 7 Quality: aching Consistency: constant Improves With: nothing Worsens With: nothing Context: recent illness Anginal Symptoms: dyspnea Other Symptoms: palpitations Treatments Prior to Arrival: none - Related Data Previous Rx's Medication Instructions Recorded Apixaban [Eliquis] 5 mg PO BID tab 12/09/20 Levothyroxine Sodium [Synthroid] 75 mcg PO DAILY@0630 tab 12/09/20 Pantoprazole [Protonix] 40 mg PO AC-BRKFST tablet. 12/09/20 Furosemide [Lasix] 20 mg PO DAILY 30 Days #30 tab 12/18/20 Spironolactone [Aldactone] 50 mg PO DAILY 30 Days #60 tab 12/18/20 Metoprolol Tartrate 25 mg PO DAILY 30 Days #30 tab 12/28/20 Metoprolol Tartrate [Lopressor] 12.5 mg PO DAILY 30 Days #30 dose 12/28/20 Nitroglycerin Sl Tabs [Nitrostat] 0.4 mg SUBLINGUAL Q5M PRN tab 12/28/20 Allergies Allergy/AdvReac Type Severity Reaction Status Date / Time warfarin sodium Allergy Anaphylaxis Verified 01/07/21 16:52 [From Coumadin] peas AdvReac Diarrhea Verified 01/07/21 16:52 Review of Systems ROS Statement: Those systems with pertinent positive or pertinent negative responses have been documented in the HPI. ROS Other: All systems not noted in ROS Statement are negative. EKG Findings - EKG Comments: EKG Findings:: EKG shows sinus tachycardia 164 RI 152 QRS 90 QTC 432 - EKG Results: EKG: interpreted by MAREK (EKG shows sinus rhythm 64 RI 192 QRS 84 QTc 410) 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 7, Past Anesthesia/Blood Transfusion Reactions: Previous Problems w/ Anesthesia Additional Past Anesthesia/Blood Transfusion Reaction / Comment(s): Patient states she is allergic to anesthesia during 2018 heart cath -- had numbness in right face and left hand, states anesthesiologists indicated if next procedure, would have to be adjusted Past Psychological History: No Psychological Hx Reported Smoking Status: Never smoker Past Alcohol Use History: None Reported Past Drug Use History: None Reported - Past Family History Mother Family Medical History: Asthma, Cancer, Hyperlipidemia, Hypertension Additional Family Medical History / Comment(s): Mother had breast CA at age 52 Brother(s) Family Medical History: Asthma Father Family Medical History: Asthma General Exam Limitations: no limitations General appearance: alert, in no apparent distress, anxious Head exam: Present: atraumatic, normocephalic, normal inspection Eye exam: Present: normal appearance, PERRL, EOMI. Absent: scleral icterus, conjunctival injection, periorbital swelling ENT exam: Present: normal exam, mucous membranes moist Neck exam: Present: normal inspection. Absent: tenderness, meningismus, lymphadenopathy Respiratory exam: Present: normal lung sounds bilaterally. Absent: respiratory distress, wheezes, rales, rhonchi, stridor Cardiovascular Exam: Present: tachycardia, irregular rhythm, normal heart sounds. Absent: systolic murmur, diastolic murmur, rubs, gallop, clicks GI/Abdominal exam: Present: soft, normal bowel sounds. Absent: distended, tenderness, guarding, rebound, rigid Extremities exam: Present: normal inspection, full ROM, normal capillary refill. Absent: tenderness, pedal edema, joint swelling, calf tenderness Back exam: Present: normal inspection Neurological exam: Present: alert, oriented X3, CN II-XII intact Psychiatric exam: Present: normal affect, normal mood Skin exam: Present: warm, dry, intact, normal color. Absent: rash Course Vital Signs 12/27/20 12/27/20 12/27/20 21:55 22:20 22:52 Temperature 97.4 F L Pulse Rate 164 H 158 H Pulse Rate [ 166 H Continuous Process Machine Operator ] Respiratory 18 18 Rate Blood Pressure 104/72 O2 Sat by Pulse 97 97 Oximetry 12/27/20 12/28/20 12/28/20 23:10 00:00 00:39 Temperature Pulse Rate 64 79 65 Pulse Rate [ Continuous Process Machine Operator ] Respiratory 17 16 17 Rate Blood Pressure 115/66 98/70 O2 Sat by Pulse 97 99 100 Oximetry 12/28/20 12/28/20 12/28/20 02:17 04:00 06:00 Temperature Pulse Rate 80 79 57 L Pulse Rate [ Continuous Process Machine Operator ] Respiratory 18 18 17 Rate Blood Pressure 100/69 121/58 99/67 O2 Sat by Pulse 96 97 96 Oximetry 12/28/20 12/28/20 08:00 09:00 Temperature Pulse Rate 58 L 65 Pulse Rate [ Continuous Process Machine Operator ] Respiratory 18 18 Rate Blood Pressure 98/70 98/70 O2 Sat by Pulse 92 L 94 L Oximetry - Reevaluation(s) Reevaluation #1: 12/27/20 22:34 Medical records reviewed History of atrial fibrillation Reevaluation #2: 12/27/20 22:34 Patient given Cardizem for heart rate Chest Pain MDM - MDM 40 female DF for atrial fibrillation RVR. Patient be admitted for rate control Critical Care Time Critical Care Time: Yes Total Critical Care Time: 31 Disposition Clinical Impression: Atypical chest pain, Atrial flutter, S/P Fontan procedure, History of cirrhosis of liver, Dizziness, Intractable abdominal pain Disposition: ADMITTED IP TO THIS HOSP Condition: Fair Is patient prescribed a controlled substance at d/c from ED?: No
[2020-12-27 22:39] LABS: Basophils % (A) 1 %; Eosinophils # (A) 0.1 k/uL (0-0.7); Eosinophils % (A) 2 %; HCT 47.9 % (34.0-46.0); HGB 15.8 gm/dL (11.4-16.0); Lymphocytes # (A) 0.6 k/uL (1.0-4.8); Lymphocytes % (A) 11 %; MCH 28.2 pg (25.0-35.0); MCV 85.5 fL (80.0-100.0); Mean Platelet Volume 9.1; Monocytes # (A) 0.4 k/uL (0-1.0); Monocytes % (A) 6 %; Neutrophils # (A) 4.2 k/uL (1.3-7.7); Neutrophils % (A) 78 %; Platelet Count 116 k/uL (150-450); RBC 5.61 m/uL (3.80-5.40); RDW 14.1 % (11.5-15.5); WBC 5.4 k/uL (3.8-10.6)
[2020-12-27 22:51] LABS: Appearance,Urine Clear (Clear); Bilirubin,Urine Negative (Negative); Blood,Urine Negative (Negative); Color,Urine Colorless; Glucose,Urine (UA) Negative (Negative); INR 1.1 (<1.2); Ketones,Urine Negative (Negative); Leukocyte Esterase,Urine Negative (Negative); Nitrite,Urine Negative (Negative); Partial Thromboplastin Time 24.1 sec (22.0-30.0); Protein,Urine Trace (Negative); Prothrombin Time 11.7 sec (9.0-12.0); Specific Gravity,Urine 1.002 (1.001-1.035); Urobilinogen,Urine <2.0 mg/dL (<2.0)
[2020-12-27] MEDS ORDERED: MORPHINE SULFATE 4 MG/ML SYRINGE IVP PRN (22:59)
[2020-12-27] MEDS ORDERED: MORPHINE SULFATE 4 MG/ML SYRINGE IVP STA (22:59)
[2020-12-27] MEDS ORDERED: METOPROLOL TARTRATE 5 MG/5 ML VIAL IVP STA (22:59)
[2020-12-27 23:04] LABS: ALT 26 U/L (4-34); AST 48 U/L (14-36); African American GFR (CKD) >90 (>60 ml/min/1.73 sqM); Alkaline Phosphatase 84 U/L (38-126); Anion Gap 13 mmol/L; Blood Urea Nitrogen 14 mg/dL (7-17); Calcium 9.7 mg/dL (8.4-10.2); Carbon Dioxide 20 mmol/L (22-30); Chloride 104 mmol/L (98-107); Creatine Kinase 44 U/L (30-135); Glucose 100 mg/dL (74-99); Magnesium 1.9 mg/dL (1.6-2.3); Non-African American GFR(CKD) >90 (>60 ml/min/1.73 sqM); Phosphorus 3.4 mg/dL (2.5-4.5); Sodium 137 mmol/L (137-145); Total Protein 8.1 g/dL (6.3-8.2)
[2020-12-27] MEDS ORDERED: NITROGLYCERIN SL TABS 0.4 MG TAB SUBLINGUAL PRN (23:05)
[2020-12-27] MEDS ORDERED: SODIUM CHLORIDE 0.9% 1,000 ML IV SCH (23:15)
[2020-12-27 23:54] LABS: Creatine Kinase MB 0.5 ng/mL (0.0-2.4); Troponin I <0.012 ng/mL (0.000-0.034)
[2020-12-28 08:16] VITALS: BP 98/70; RESP 18
[2020-12-28] MEDS ORDERED: ASPIRIN 325 MG TAB PO SCH (09:00)
[2020-12-28] MEDS ORDERED: METOPROLOL TARTRATE 50 MG TAB PO SCH (09:00)
[2020-12-28 09:05] VITALS: PULSE 65
[2020-12-28 10:07] LABS: Chol/HDL Ratio 3.91; LDL Cholesterol,Calculated 80.2 mg/dL (0.0-131.0); VLDL Calculation 15.8 mg/dL (5.00-40.00)
--- NOTE | 2020-12-28 10:22 | CONS ---
CONSULTATION HISTORY: This is a 40-year-old lady with a history of tricuspid atresia, Fontan procedure at age 7 [address] Nix in the outpatient setting. She is known to have paroxysmal atrial flutter. She is on Eliquis, metoprolol, and Synthroid. She came into the hospital with complaints of feeling weak and tired, was found to be in atrial flutter at a rate of about 150 beats per minute and also had some sharp pain in the chest. She is resting comfortably. At the time of my evaluation she is back in sinus rhythm at 60 beats per minute. No chest pain or shortness of breath. PAST MEDICAL HISTORY: 1. 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 2. Paroxysmal atrial fibrillation. 3. History of a cirrhosis for which she has a very with paracentesis performed periodically. MEDICATIONS: Medications at home include Eliquis 5 mg b.i.d., Synthroid 75 mcg daily, Lopressor 12.5 mg b.i.d., Lasix 20 mg daily, Aldactone 50 mg daily. PHYSICAL EXAMINATION: On examination, blood pressure is 104/70, pulse rate is 60, sinus. HEENT unremarkable. Fundus was not examined by me. Neck is supple. JVD is 1 cm. No carotid bruit S1-S2 heard normally. Short systolic murmur noted lungs reveal diminished air entry. Abdomen is soft, nontender. Lower extremities reveal diminished pulses. Central nervous system grossly no focal deficits. IMPRESSION: 1. Paroxysmal atrial flutter. 2. History of congenital heart disease with a Fontan procedure at age 7. 3. Hypothyroidism. 4. Cirrhosis. RECOMMENDATIONS: I am recommending the patient can be discharged on 25 mg of metoprolol in the morning, 12.5 in the evening. Continue other medications including Eliquis. I will see her as needed. Thank you very much for the consult. MMODL / IJN: [id number] /
[2020-12-28 10:48] LABS: T4, Free (Free Thyroxine) 1.07 ng/dL (0.78-2.19)
--- NOTE | 2020-12-28 13:36 | P.HPIM ---
History of Present Illness H&P Date: 12/28/20 Asuncion Rizzo, is a 40-year-old female who presented to [facility] emergency room with a chief complaint of chest pain, she was evaluated in the emergency room, her vital examination on presentation revealed a temperature of 97.4 pulse 164 respiration 18 blood pressure 104/72 pulse ox 97% on room air she had evidence of atrial flutter with rapid ventricular response, she was started on Cardizem drip in the emergency room and was admitted to telemetry floor cardiology consultation was requested. Patient has a known history of paroxysmal atrial fibrillation, she also has a known history of congenital heart disease with history of cardiac surgery , Fontan procedure at age 7, she has a known history of hypothyroidism , she also has a known history of liver cirrhosis, recently patient was admitted to [facility] with worsening ascites, at that time patient stated that she was not taking any of her medications because she was trying to become , she was counseled in length in regards to taking her medications regularly. 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 7, Past Anesthesia/Blood Transfusion Reactions: Previous Problems w/ Anesthesia Additional Past Anesthesia/Blood Transfusion Reaction / Comment(s): Patient states she is allergic to anesthesia during 2018 heart cath -- had numbness in right face and left hand, states anesthesiologists indicated if next procedure, would have to be adjusted Past Psychological History: No Psychological Hx Reported Smoking Status: Never smoker Past Alcohol Use History: None Reported Past Drug Use History: None Reported - Past Family History Mother Family Medical History: Asthma, Cancer, Hyperlipidemia, Hypertension Additional Family Medical History / Comment(s): Mother had breast CA at age 52 Brother(s) Family Medical History: Asthma Father Family Medical History: Asthma Medications and Allergies Home Medications Medication Instructions Recorded Confirmed Type Apixaban [Eliquis] 5 mg PO BID tab 12/09/20 12/27/20 Rx Levothyroxine Sodium [Synthroid] 75 mcg PO DAILY@0630 tab 12/09/20 12/27/20 Rx Pantoprazole [Protonix] 40 mg PO AC-BRKFST tablet. 12/09/20 12/27/20 Rx Furosemide [Lasix] 20 mg PO DAILY 30 Days #30 tab 12/18/20 12/27/20 Rx Spironolactone [Aldactone] 50 mg PO DAILY 30 Days #60 tab 12/18/20 12/27/20 Rx Metoprolol Tartrate 25 mg PO DAILY 30 Days #30 tab 12/28/20 Rx Metoprolol Tartrate [Lopressor] 12.5 mg PO DAILY 30 Days #30 dose 12/28/20 Rx Nitroglycerin Sl Tabs [Nitrostat] 0.4 mg SUBLINGUAL Q5M PRN tab 12/28/20 Rx Allergies Allergy/AdvReac Type Severity Reaction Status Date / Time warfarin sodium Allergy Anaphylaxis Verified 12/27/20 23:12 [From Coumadin] peas AdvReac Diarrhea Verified 12/27/20 23:12 Physical Exam Vitals: Vital Signs Temp Pulse Pulse Resp BP Pulse Ox 12/28/20 09:00 65 18 98/70 94 L 12/28/20 08:00 58 L 18 98/70 92 L 12/28/20 06:00 57 L 17 99/67 96 12/28/20 04:00 79 18 121/58 97 12/28/20 02:17 80 18 100/69 96 12/28/20 00:39 65 17 98/70 100 12/28/20 00:00 79 16 99 12/27/20 23:10 64 17 115/66 97 12/27/20 22:52 158 H 18 97 12/27/20 22:20 166 H 12/27/20 21:55 97.4 F L 164 H 18 104/72 97 Intake and Output 12/27/20 12/28/20 12/28/20 22:59 06:59 14:59 Intake Total 0 Balance 0 Intake: Intake, IV Titration 0 Amount Diltiazem 125 mg In 0 Sodium Chloride 0.9% 100 ml @ 5 MG/HR 5 mls/hr IV .Q24H [facility] Rx#:[id number] Other: Weight 49.895 kg In general patient is alert and oriented x 3 in no distress HEENT head normocephalic and atraumatic Neck is supple no JVD no goiter no lymphadenopathy no carotid bruit Chest examination is clear to auscultation no crackles no wheezing Cardiac exam reveals regular heart sounds S1 and S2 no gallops no murmurs Abdomen is soft nontender no organomegaly with normal bowel sounds Extremity exam reveals no edema no cyanosis or clubbing Neurological examination reveals no gross focal deficits Results CBC & Chem 7: 12/27/20 22:26 12/27/20 22: Labs: Abnormal Lab Results - Last 24 Hours (Table) 12/27/20 12/27/20 12/27/20 Range/Units 22:26 22:26 22: RBC 5.61 H (3.80-5.40) m/uL Hct 47.9 H (34.0-46.0) % Plt Count 116 L (150-450) k/uL Lymphocytes # 0.6 L (1.0-4.8) k/uL Carbon Dioxide 20 L (22-30) mmol/L Glucose 100 H (74-99) mg/dL AST 48 H (14-36) U/L Troponin I (0.000-0.034) ng/mL HDL Cholesterol (40.0-60.0) mg/dL TSH (0.465-4.680) mIU/L Urine Protein Trace H (Negative) 12/28/20 12/28/20 12/28/20 Range/Units 04:26 04:26 04:40 RBC (3.80-5.40) m/uL Hct (34.0-46.0) % Plt Count (150-450) k/uL Lymphocytes # (1.0-4.8) k/uL Carbon Dioxide (22-30) mmol/L Glucose (74-99) mg/dL AST (14-36) U/L Troponin I 0.037 H* (0.000-0.034) ng/mL HDL Cholesterol 33.0 L (40.0-60.0) mg/dL TSH 15.800 H (0.465-4.680) mIU/L Urine Protein (Negative) Assessment and Plan Plan: Atrial flutter with rapid ventricular response Underlying history of congenital heart disease Underlying history of hypothyroidism Underlying history of liver cirrhosis Underlying history of poor compliance with medications At this time patient was started on IV Cardizem drip Cardiology consultation was requested Patient is stable without any chest pain at this time
--- NOTE | 2020-12-28 13:38 | P.DS ---
Providers Date of admission: 12/27/20 23:06 Expected date of discharge: 12/28/20 Attending physician: Devaughn Marino Consults: 12/27/20 23:05 Consult Physician Urgent Consulting Provider: Haylee Suarez Consult Reason/Comments: afib Do you want consulting provider notified?: Yes Primary care physician: Devaughn [facility] Course: Diagnosis on discharge: Atrial flutter with rapid ventricular response Underlying history of congenital heart disease Underlying history of hypothyroidism Underlying history of liver cirrhosis Underlying history of poor compliance with medications Hospital course: Asuncion Rizzo, is a 40-year-old female who presented to [facility] emergency room with a chief complaint of chest pain, she was evaluated in the emergency room, her vital examination on presentation revealed a temperature of 97.4 pulse 164 respiration 18 blood pressure 104/72 pulse ox 97% on room air she had evidence of atrial flutter with rapid ventricular response, she was started on Cardizem drip in the emergency room and was admitted to telemetry floor cardiology consultation was requested. Patient has a known history of paroxysmal atrial fibrillation, she also has a known history of congenital heart disease with history of cardiac surgery , Fontan procedure at age 7, she has a known history of hypothyroidism , she also has a known history of liver cirrhosis, recently patient was admitted to [facility] with worsening ascites, at that time patient stated that she was not taking any of her medications because she was trying to become , she was counseled in length in regards to taking her medications regularly. On 12/28/2020 Patient was seen and examined on the medical floor, he is alert and oriented x 3 in no distress, he denies any complaints there is no fever or chills no headache or dizziness no chest pain no shortness of breath no palpitation no cough no nausea or vomiting no abdominal pain no diarrhea no blood in the stools no burning with urination no frequency or urgency and no hematuria, there is no weakness or numbness in any of the extremities no change in vision speech or gait. Patient is symptom free at this time she is in normal sinus rhythm rate of 60 she was evaluated by cardiology and was cleared for discharge dose of metoprolol was increased from 12.5 mg twice a day to 25 mg in a.m. and 12.5 mg in p.m. Will follow in the office within 1 week Patient Condition at Discharge: Fair Plan - Discharge Summary New Discharge Prescriptions: New Metoprolol Tartrate [Lopressor] 12.5 mg PO DAILY 30 Days #30 dose Nitroglycerin Sl Tabs [Nitrostat] 0.4 mg SUBLINGUAL Q5M PRN tab PRN Reason: Chest Pain Metoprolol Tartrate 25 mg PO DAILY 30 Days #30 tab Continue Spironolactone [Aldactone] 50 mg PO DAILY 30 Days #60 tab Apixaban [Eliquis] 5 mg PO BID tab Pantoprazole [Protonix] 40 mg PO AC-BRKFST tablet. Levothyroxine Sodium [Synthroid] 75 mcg PO DAILY@0630 tab Furosemide [Lasix] 20 mg PO DAILY 30 Days #30 tab Discontinued Metoprolol Tartrate [Lopressor] 12.5 mg PO BID tab Discharge Medication List Apixaban [Eliquis] 5 mg PO BID tab 12/09/20 [Rx] Levothyroxine Sodium [Synthroid] 75 mcg PO DAILY@0630 tab 12/09/20 [Rx] Pantoprazole [Protonix] 40 mg PO AC-BRKFST tablet. 12/09/20 [Rx] Furosemide [Lasix] 20 mg PO DAILY 30 Days #30 tab 12/18/20 [Rx] Spironolactone [Aldactone] 50 mg PO DAILY 30 Days #60 tab 12/18/20 [Rx] Metoprolol Tartrate 25 mg PO DAILY 30 Days #30 tab 12/28/20 [Rx] Metoprolol Tartrate [Lopressor] 12.5 mg PO DAILY 30 Days #30 dose 12/28/20 [Rx] Nitroglycerin Sl Tabs [Nitrostat] 0.4 mg SUBLINGUAL Q5M PRN tab 12/28/20 [Rx] Follow up Appointment(s)/Referral(s): Devaughn Marino MD [Primary Care Provider] - 1-2 days Discharge Disposition: HOME SELF-CARE
== END 2020-12-28 12:35 | disposition home or self-care (01) ==
LOC: EC 21:50 → INTOOBSV 23:06 → 3SCARD 23:06 → UNDODISIN 12-28 12:35
PROVIDERS: ADMIT Internal Medicine; ATTEND Internal Medicine
DX: I48.92 Unspecified atrial flutter (principal); Q24.9 Congenital malformation of heart, unspecified; Q22.4 Congenital tricuspid stenosis; E03.9 Hypothyroidism, unspecified; K74.60 Unspecified cirrhosis of liver; Z91.14 Patient's other noncompliance with medication regimen; I48.0 Paroxysmal atrial fibrillation; Z98.890 Other specified postprocedural states; R18.8 Other ascites; J45.909 Unspecified asthma, uncomplicated; Z20.822 Contact with and (suspected) exposure to COVID-19; Z95.1 Presence of aortocoronary bypass graft; Z79.01 Long term (current) use of anticoagulants; Z79.890 Hormone replacement therapy; Z79.899 Other long term (current) drug therapy; Z88.8 Allergy status to other drugs, medicaments and biological substances; Z91.018 Allergy to other foods; Z88.4 Allergy status to anesthetic agent; Z82.49 Family history of ischemic heart disease and other diseases of the circulatory system; Z82.5 Family history of asthma and other chronic lower respiratory diseases; Z80.3 Family history of malignant neoplasm of breast; Z80.9 Family history of malignant neoplasm, unspecified; Z83.49 Family history of other endocrine, nutritional and metabolic diseases
CPT/HCPCS: 93005 ×2; 96376; 96365; 96375; 99291; 36415; 84439; 83880; 80061; 80053; 84443; 82550; 82553; 83605; 83735; 84100; 84484 ×2; 85025; 85610; 85730; 81003; 87635; G0378 ×2; J2270; 99285

== ENCOUNTER 2021-01-07 16:38 | Emergency (ER) | payer OTHER ==
[2021-01-07 16:53] VITALS: RESP 18; TEMP 97.8
[2021-01-07] MEDS ORDERED: ORPHENADRINE 30 MG/ML 2 ML VIAL IM STA (17:23)
[2021-01-07] MEDS ORDERED: KETOROLAC 15 MG/ML 1 ML VIAL IM STA (17:24)
--- NOTE | 2021-01-07 17:30 | ED ---
Neck Injury/Pain HPI - General Chief Complaint: Neck Pain/Injury Stated Complaint: Head/Neck Pain Source: patient, family, RN notes reviewed, old records reviewed Mode of arrival: ambulatory Limitations: no limitations - History of Present Illness Initial Comments: 40-year-old white female, well appearing, alert and oriented 4, presents to the emergency room with complaints of left-sided neck pain after being in the pool today. She states that the left side of her neck is tight and it hurts to turn her head to the left. She did not try any medications prior to coming to the emergency room. She denies any fevers, nausea vomiting or chest pain or shortness of breath. She denies any trauma or injury. She does have a history of atrial flutter continual heart keep the coronary artery bypass graft and asthma. Patient states the pain as tightness in 7 out of 10. She has no back pain. MD Complaint: neck pain -: hour(s) (1) Place: home Radiation: left lateral Severity scale (1-10): 7 Quality: other (Tightness) Consistency: constant Improves With: none Worsens With: movement of neck (Head to the left increases pain) Context: other (Patient was in a pool floating on a raft today and then when she went to get out she felt that tightness of the left side of her neck) Associated Symptoms: none Treatments Prior to Arrival: none - Related Data Previous Rx's Medication Instructions Recorded Apixaban [Eliquis] 5 mg PO BID tab 12/09/20 Levothyroxine Sodium [Synthroid] 75 mcg PO DAILY@0630 tab 12/09/20 Pantoprazole [Protonix] 40 mg PO AC-BRKFST tablet. 12/09/20 Furosemide [Lasix] 20 mg PO DAILY 30 Days #30 tab 12/18/20 Spironolactone [Aldactone] 50 mg PO DAILY 30 Days #60 tab 12/18/20 Metoprolol Tartrate 25 mg PO DAILY 30 Days #30 tab 12/28/20 Metoprolol Tartrate [Lopressor] 12.5 mg PO DAILY 30 Days #30 dose 12/28/20 Nitroglycerin Sl Tabs [Nitrostat] 0.4 mg SUBLINGUAL Q5M PRN tab 12/28/20 Allergies Allergy/AdvReac Type Severity Reaction Status Date / Time warfarin sodium Allergy Anaphylaxis Verified 01/07/21 16:52 [From Coumadin] peas AdvReac Diarrhea Verified 01/07/21 16:52 Review of Systems ROS Statement: Those systems with pertinent positive or pertinent negative responses have been documented in the HPI. ROS Other: All systems not noted in ROS Statement are negative. 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 7, Past Anesthesia/Blood Transfusion Reactions: Previous Problems w/ Anesthesia Additional Past Anesthesia/Blood Transfusion Reaction / Comment(s): Patient states she is allergic to anesthesia during 2018 heart cath -- had numbness in right face and left hand, states anesthesiologists indicated if next procedure, would have to be adjusted Past Psychological History: No Psychological Hx Reported Smoking Status: Never smoker Past Alcohol Use History: None Reported Past Drug Use History: None Reported - Past Family History Mother Family Medical History: Asthma, Cancer, Hyperlipidemia, Hypertension Additional Family Medical History / Comment(s): Mother had breast CA at age 52 Brother(s) Family Medical History: Asthma Father Family Medical History: Asthma General Exam Limitations: no limitations General appearance: alert, in no apparent distress Head exam: Present: atraumatic, normocephalic, normal inspection Eye exam: Present: PERRL, other (Left eye amblyopia). Absent: scleral icterus, conjunctival injection, periorbital swelling Pupils: Present: normal accommodation ENT exam: Present: normal exam, normal oropharynx, mucous membranes moist Neck exam: Present: normal inspection, tenderness (Left lateral sternocleidomastoid), full ROM. Absent: meningismus, lymphadenopathy Respiratory exam: Present: normal lung sounds bilaterally. Absent: respiratory distress, wheezes, rales, rhonchi, stridor, chest wall tenderness, accessory muscle use, decreased breath sounds Cardiovascular Exam: Present: regular rate, normal rhythm, normal heart sounds. Absent: systolic murmur, diastolic murmur, rubs, gallop, clicks GI/Abdominal exam: Present: soft, normal bowel sounds. Absent: distended, tenderness, guarding, rebound, rigid Extremities exam: Present: normal inspection, full ROM, normal capillary refill. Absent: tenderness, pedal edema, joint swelling, calf tenderness Back exam: Present: normal inspection, full ROM. Absent: tenderness, CVA tenderness (R), CVA tenderness (L), muscle spasm, paraspinal tenderness, vertebral tenderness, rash noted Neurological exam: Present: alert, oriented X3, CN II-XII intact Psychiatric exam: Present: normal affect, normal mood Skin exam: Present: warm, dry, intact, normal color. Absent: rash, cyanosis, diaphoretic, erythema, petechiae, pallor, mottled Course Vital Signs 01/07/21 16:48 Temperature 97.8 F Pulse Rate 65 Respiratory 18 Rate Blood Pressure 107/72 O2 Sat by Pulse 96 Oximetry Medical Decision Making - Medical Decision Making Patient states that she was swimming in the pool on a raft for a while and then developed the left-sided neck pain is worse with palpation along the sternocleidomastoid muscle. She denies any injuries. She denies any fevers. She denies any visual disturbances, fevers or nausea and vomiting. Patient has no focal neurological deficits. Her head is atraumatic. This is likely musculoskeletal pain and patient directed to take Motrin and use a heating pad and follow up with primary care doctor in 1 week. Patient given Norflex and Toradol in the emergency room. Case discussed with Dr. Vleasco Disposition Clinical Impression: Musculoskeletal neck pain Disposition: HOME SELF-CARE Condition: Good Instructions (If sedation given, give patient instructions): Neck Pain (ED), Musculoskeletal Pain (ED) Additional Instructions: Take Motrin [id number] as needed for muscle pain and uses a heating pads. Follow-up with the primary care doctor in 1 week. Return if any fevers, nausea vomiting or worsening symptoms Is patient prescribed a controlled substance at d/c from ED?: No Referrals: Devaughn Marino MD [Primary Care Provider] - 1-2 days Time of Disposition: 18:38
[2021-01-07 18:44] VITALS: BP 110/81; PULSE 72
== END 2021-01-07 18:46 | disposition home or self-care (01) ==
LOC: EC 16:38
DX: M54.2 Cervicalgia (principal); I48.92 Unspecified atrial flutter; J45.909 Unspecified asthma, uncomplicated; Z95.1 Presence of aortocoronary bypass graft; Z82.49 Family history of ischemic heart disease and other diseases of the circulatory system
CPT/HCPCS: 99283; 96372 ×2; J2360; J1885

== ENCOUNTER 2021-04-18 23:51 | Emergency (ER) | payer OTHER ==
[2021-04-19 00:03] VITALS: TEMP 98.7
[2021-04-19] MEDS ORDERED: DILTIAZEM DRIP BOLUS FROM BAG 1 MG SOLN IV ONE (00:41)
--- NOTE | 2021-04-19 00:52 | ED ---
Chest Pain HPI - General Chief Complaint: Chest Pain Stated Complaint: Chest Pain Time Seen by Provider: 04/19/21 00:13 Source: patient, family Mode of arrival: ambulatory - History of Present Illness Initial Comments: This patient is a 40-year-old woman who presents to be evaluated for epigastric discomfort and racing heartbeat. She had an episode earlier in the day that did resolve on its own however the symptoms recurred tonight and the patient noticed that her heart was racing showed she presents here for evaluation. No dyspnea, diaphoresis, nausea or vomiting. Patient does have history of congenital heart disease and has had atrial flutter in the past MD Complaint: other -: hour(s) Onset: during rest Pain Location: epigastric Pain Radiation: none Severity: mild Quality: dull Consistency: intermittent Improves With: nothing Worsens With: nothing Other Symptoms: palpitations Treatments Prior to Arrival: none - Related Data Previous Rx's Medication Instructions Recorded Apixaban [Eliquis] 5 mg PO BID tab 12/09/20 Levothyroxine Sodium [Synthroid] 75 mcg PO DAILY@0630 tab 12/09/20 Pantoprazole [Protonix] 40 mg PO AC-BRKFST tablet. 12/09/20 Furosemide [Lasix] 20 mg PO DAILY 30 Days #30 tab 12/18/20 Spironolactone [Aldactone] 50 mg PO DAILY 30 Days #60 tab 12/18/20 Metoprolol Tartrate 25 mg PO DAILY 30 Days #30 tab 12/28/20 Metoprolol Tartrate [Lopressor] 12.5 mg PO DAILY 30 Days #30 dose 12/28/20 Nitroglycerin Sl Tabs [Nitrostat] 0.4 mg SUBLINGUAL Q5M PRN tab 12/28/20 Allergies Allergy/AdvReac Type Severity Reaction Status Date / Time warfarin sodium Allergy Anaphylaxis Verified 04/19/21 00:03 [From Coumadin] peas AdvReac Diarrhea Verified 04/19/21 00:03 Review of Systems ROS Statement: Those systems with pertinent positive or pertinent negative responses have been documented in the HPI. ROS Other: All systems not noted in ROS Statement are negative. Constitutional: Denies: fever Respiratory: Denies: cough, dyspnea Cardiovascular: Reports: as per HPI, chest pain, palpitations. Denies: orthopnea, edema, syncope Gastrointestinal: Denies: abdominal pain, nausea, vomiting, diarrhea, melena, hematochezia Genitourinary: Denies: dysuria, hematuria Musculoskeletal: Denies: back pain Skin: Denies: rash Neurological: Denies: headache, weakness EKG Findings - EKG Comments: EKG Findings:: Underlying rhythm appears to be atrial flutter with rates 153 bpm - EKG Results: EKG: interpreted by ERMD, normal axis, normal QRS - Blocks, [place], Hypertrophy, ST Abn: Repolarization changes or abnormalities: ST suggestive of injury 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 7, Past Anesthesia/Blood Transfusion Reactions: Previous Problems w/ Anesthesia Additional Past Anesthesia/Blood Transfusion Reaction / Comment(s): Patient states she is allergic to anesthesia during 2018 heart cath -- had numbness in right face and left hand, states anesthesiologists indicated if next procedure, would have to be adjusted Past Psychological History: No Psychological Hx Reported Smoking Status: Never smoker Past Alcohol Use History: None Reported Past Drug Use History: None Reported - Past Family History Mother Family Medical History: Asthma, Cancer, Hyperlipidemia, Hypertension Additional Family Medical History / Comment(s): Mother had breast CA at age 52 Brother(s) Family Medical History: Asthma Father Family Medical History: Asthma General Exam General appearance: alert, in no apparent distress Head exam: Present: atraumatic, normocephalic Eye exam: Present: normal appearance. Absent: scleral icterus, conjunctival injection ENT exam: Present: normal oropharynx Neck exam: Present: normal inspection Respiratory exam: Present: normal lung sounds bilaterally. Absent: respiratory distress, wheezes, rales, rhonchi, stridor Cardiovascular Exam: Present: tachycardia, normal heart sounds. Absent: systolic murmur, diastolic murmur, rubs, gallop GI/Abdominal exam: Present: soft. Absent: distended, tenderness, guarding, rebound, rigid, mass Extremities exam: Present: normal inspection, normal capillary refill. Absent: pedal edema, calf tenderness Back exam: Present: normal inspection. Absent: CVA tenderness (R), CVA tenderness (L) Neurological exam: Present: alert Skin exam: Present: warm, dry, intact, normal color. 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 ] Respiratory 20 18 Rate Blood Pressure 108/82 113/89 O2 Sat by Pulse 97 98 Oximetry 04/19/21 04/19/21 04/19/21 01:00 01:57 02:29 Temperature Pulse Rate 152 H 49 L 50 L Pulse Rate [ [employer] ] Respiratory 18 18 16 Rate Blood Pressure 102/85 100/66 96/70 O2 Sat by Pulse 96 99 98 Oximetry 04/19/21 04/19/21 04/19/21 04:16 05:00 05:59 Temperature Pulse Rate 64 64 64 Pulse Rate [ [employer] ] Respiratory 20 20 20 Rate Blood Pressure 99/64 93/65 107/64 O2 Sat by Pulse 97 97 Oximetry Chest Pain [facility] Patient is 40-year-old woman with history of previous atrial flutter who presents with recurrence of symptoms. She per the past history has good response with Cardizem and this was administered with resolution of the tachycardia back to sinus rhythm. The patient then was feeling better and didn't want to go home. She did agree to have second set of cardiac enzymes which are also negative. As she is symptom-free patient will be discharged with close follow-up. Discussed return parameters as well as opiate further care Critical Care Time Critical Care Time: Yes (40 minutes) Disposition Clinical Impression: Atrial flutter Disposition: HOME SELF-CARE Condition: Good Instructions (If sedation given, give patient instructions): Atrial Flutter (ED) Is patient prescribed a controlled substance at d/c from ED?: No Referrals: Devaughn Marino MD [Primary Care Provider] - 1-2 days
[2021-04-19 01:00] LABS: Basophils % (A) 1 %; Eosinophils # (A) 0.1 k/uL (0-0.7); Eosinophils % (A) 2 %; HCT 42.8 % (34.0-46.0); HGB 14.5 gm/dL (11.4-16.0); Lymphocytes # (A) 0.6 k/uL (1.0-4.8); Lymphocytes % (A) 11 %; MCHC 33.8 g/dL (31.0-37.0); MCV 85.6 fL (80.0-100.0); Mean Platelet Volume 9.7; Monocytes # (A) 0.4 k/uL (0-1.0); Monocytes % (A) 7 %; Neutrophils # (A) 3.9 k/uL (1.3-7.7); Neutrophils % (A) 77 %; Platelet Count 133 k/uL (150-450); RBC 4.99 m/uL (3.80-5.40); RDW 14.3 % (11.5-15.5)
[2021-04-19] MEDS ORDERED: DILTIAZEM 125 MG in SODIUM CHLORIDE 0.9% 100 ML IV SCH (01:00)
[2021-04-19 01:10] LABS: ALT 16 U/L (4-34); AST 29 U/L (14-36); African American GFR (CKD) >90 (>60 ml/min/1.73 sqM); Albumin 4.2 g/dL (3.5-5.0); Alkaline Phosphatase 76 U/L (38-126); Anion Gap 10 mmol/L; Blood Urea Nitrogen 15 mg/dL (7-17); Calcium 9.1 mg/dL (8.4-10.2); Carbon Dioxide 21 mmol/L (22-30); Chloride 105 mmol/L (98-107); Glucose 113 mg/dL (74-99); Magnesium 2.2 mg/dL (1.6-2.3); Non-African American GFR(CKD) >90 (>60 ml/min/1.73 sqM); Potassium 3.8 mmol/L (3.5-5.1); Sodium 136 mmol/L (137-145); Total Bilirubin 0.9 mg/dL (0.2-1.3); Total Protein 7.5 g/dL (6.3-8.2)
[2021-04-19 01:21] LABS: INR 1.2 (<1.2); Partial Thromboplastin Time 24.9 sec (22.0-30.0); Prothrombin Time 12.4 sec (9.0-12.0)
--- NOTE | 2021-04-19 01:21 | XR ---
EXAMINATION TYPE: XR chest 1V DATE OF EXAM: 04/19/2021 COMPARISON: 12/13/2020 HISTORY: Chest pain TECHNIQUE: Single view FINDINGS: Heart appears slightly enlarged. There are sternal wires. There is no gross heart failure. Lungs are clear of consolidation. There are chest leads. IMPRESSION: No pulmonary consolidation or heart failure. No adverse change.
[2021-04-19 04:17] VITALS: PULSE 64; RESP 20
[2021-04-19 06:01] VITALS: BP 107/64
== END 2021-04-19 06:00 | disposition home or self-care (01) ==
LOC: EC 23:51
DX: I48.92 Unspecified atrial flutter (principal); J45.909 Unspecified asthma, uncomplicated; Z79.01 Long term (current) use of anticoagulants; Z79.890 Hormone replacement therapy; Z79.899 Other long term (current) drug therapy; Z95.1 Presence of aortocoronary bypass graft; Z83.49 Family history of other endocrine, nutritional and metabolic diseases; Z82.49 Family history of ischemic heart disease and other diseases of the circulatory system; Z80.3 Family history of malignant neoplasm of breast
CPT/HCPCS: 36415; 71045; 80053; 83735; 84484; 85025; 85379; 85610; 85730; 93005; 96374; 96376; 99291

== ENCOUNTER 2021-06-08 19:41 | Inpatient (IN) | payer OTHER ==
[2021-06-08] MEDS ORDERED: ASPIRIN 81 MG PO STA (20:07)
[2021-06-08] MEDS ORDERED: DILTIAZEM 5 MG/ML 5 ML VIAL IVP STA (20:15)
[2021-06-08] MEDS ORDERED: DILTIAZEM 125 MG in SODIUM CHLORIDE 0.9% 100 ML IV SCH (20:15)
[2021-06-08] MEDS ORDERED: SODIUM CHLORIDE 0.9% 1,000 ML IV STA ×2 (20:16→22:49)
[2021-06-08 20:47] LABS: Basophils % (A) 1 %; Eosinophils # (A) 0.2 k/uL (0-0.7); Eosinophils % (A) 2 %; HCT 46.4 % (34.0-46.0); HGB 15.5 gm/dL (11.4-16.0); Lymphocytes # (A) 0.7 k/uL (1.0-4.8); Lymphocytes % (A) 10 %; MCH 27.8 pg (25.0-35.0); MCHC 33.4 g/dL (31.0-37.0); MCV 83.3 fL (80.0-100.0); Mean Platelet Volume 9.4; Monocytes # (A) 0.4 k/uL (0-1.0); Monocytes % (A) 7 %; Neutrophils % (A) 79 %; Platelet Count 139 k/uL (150-450); RBC 5.58 m/uL (3.80-5.40); RDW 13.8 % (11.5-15.5); WBC 6.3 k/uL (3.8-10.6)
[2021-06-08 21:10] LABS: INR 1.2 (<1.2); Partial Thromboplastin Time 25.3 sec (22.0-30.0); Prothrombin Time 12.3 sec (9.0-12.0)
[2021-06-08 21:23] LABS: ALT 16 U/L (4-34); AST 36 U/L (14-36); African American GFR (CKD) >90 (>60 ml/min/1.73 sqM); Albumin 4.8 g/dL (3.5-5.0); Alkaline Phosphatase 64 U/L (38-126); Anion Gap 14 mmol/L; Blood Urea Nitrogen 20 mg/dL (7-17); Calcium 9.8 mg/dL (8.4-10.2); Carbon Dioxide 21 mmol/L (22-30); Chloride 101 mmol/L (98-107); Glucose 84 mg/dL (74-99); Magnesium 1.8 mg/dL (1.6-2.3); Non-African American GFR(CKD) >90 (>60 ml/min/1.73 sqM); Potassium 3.9 mmol/L (3.5-5.1); Sodium 136 mmol/L (137-145); Total Bilirubin 1.2 mg/dL (0.2-1.3); Total Protein 8.6 g/dL (6.3-8.2)
--- NOTE | 2021-06-08 22:03 | ED ---
General Adult HPI - General Chief complaint: Chest Pain Stated complaint: Shoulder Pain Time Seen by Provider: 06/08/21 20:05 Source: patient, family, RN notes reviewed, old records reviewed Mode of arrival: ambulatory Limitations: no limitations - History of Present Illness Initial comments: Patient is a 40-year-old female with past medical history remarkable for congenital heart surgery, atrial flutter, chronic liver disease, aortic aneurysm who presents emergency Department complaining of chest pain. Patient describes the pain as left-sided in nature, squeezing with radiation to the right side of her chest. She states she is not compliant with her home medications. She is supposed be on her medications but cannot remember the name of all them. She is been trying to get lately. She denies any abdominal pain, lightheadedness, blurry vision. Denies any nausea or vomiting. Does endorse some mild shortness of breath. She states she is not on blood thinners. She denies any history of blood clots, lower extremity edema. She is no cough or sick contacts. She is no other acute complaints at this time. She does endorse her heart racing. She has no other acute complaints at this time. She has been seen previously for similar symptoms, was found to be in atrial flutter with rapid ventricular response. - Related Data Home Medications Medication Instructions Recorded Confirmed Ibuprofen [Motrin] 800 mg PO Q8H PRN 06/08/21 06/08/21 Metoprolol Tartrate [Lopressor] 12.5 mg PO HS 06/08/21 06/08/21 Previous Rx's Medication Instructions Recorded Metoprolol Tartrate 25 mg PO DAILY 30 Days #30 tab 12/28/20 Nitroglycerin Sl Tabs [Nitrostat] 0.4 mg SUBLINGUAL Q5M PRN tab 12/28/20 Allergies Allergy/AdvReac Type Severity Reaction Status Date / Time warfarin sodium Allergy Anaphylaxis Verified 06/08/21 21:05 [From Coumadin] peas AdvReac Diarrhea Verified 06/08/21 21:05 Review of Systems ROS Statement: Those systems with pertinent positive or pertinent negative responses have been documented in the HPI. Review of Systems: CONST: Denies fever EYES: Denies blurry vision ENT: Denies nasal congestion C/V: Endorses chest pain RESP: Endorses shortness of breath GI: Denies abdominal pain : Denies dysuria SKIN: Denies rash. MSK: Denies joint pain. NEURO: Denies headache ROS Other: All systems not noted in ROS Statement are negative. 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 7, Past Anesthesia/Blood Transfusion Reactions: Previous Problems w/ Anesthesia Additional Past Anesthesia/Blood Transfusion Reaction / Comment(s): Patient states she is allergic to anesthesia during 2018 heart cath -- had numbness in right face and left hand, states anesthesiologists indicated if next procedure, would have to be adjusted Past Psychological History: No Psychological Hx Reported Smoking Status: Never smoker Past Alcohol Use History: None Reported Past Drug Use History: None Reported - Past Family History Mother Family Medical History: Asthma, Cancer, Hyperlipidemia, Hypertension Additional Family Medical History / Comment(s): Mother had breast CA at age 52 Brother(s) Family Medical History: Asthma Father Family Medical History: Asthma General Exam - General Exam Comments Initial Comments: General: Appears in no acute distress. HEAD: Normal with no signs of head trauma. EYES: PERRLA, EOMI, conjunctiva normal, no discharge. ENT: Hearing grossly intact, normal oropharynx. RESPIRATORY: Clear breath sounds bilaterally. No wheezes, rales, or rhonchi. Mild hypoxia to 92-94%. C/V: Patient is tachycardic with a regular rate and rhythm. S1 and S2 auscultated. No peripheral edema. Peripheral pulses are 2+ and intact throughout. ABD: Abd is soft, nontender, nondistended EXT: Normal range of motion, no obvious deformity SKIN: No rashes or lesions observed on exposed skin. NEURO: Alert and oriented 4. No focal sensory strength deficits. Limitations: no limitations Course Vital Signs 06/08/21 06/08/21 06/08/21 19:53 20:30 20:35 Temperature 97.6 F Pulse Rate 158 H 140 H 120 H Respiratory 20 20 20 Rate Blood Pressure 102/79 133/79 113/76 O2 Sat by Pulse 92 L 95 95 Oximetry 06/08/21 06/08/21 06/08/21 20:40 21:15 21:25 Temperature Pulse Rate 79 45 L 42 L Respiratory 20 18 18 Rate Blood Pressure 111/73 98/66 108/70 O2 Sat by Pulse 94 L Oximetry 06/08/21 06/08/21 06/08/21 21:30 22:41 23:38 Temperature Pulse Rate 42 L 42 L 51 L Respiratory 16 18 18 Rate Blood Pressure 107/61 100/74 109/81 O2 Sat by Pulse 95 97 Oximetry Medical Decision Making - Medical Decision Making Based on the patient's presentation and physical exam, she does appear to be presenting with acute onset of chest pain as well as atrial flutter with rapid ventricular response. She is a history of noncompliance with medications. She is also mildly hypoxic when he about dyspnea addition to the above complaints. Therefore I do believe and have concerned for possible acute cardiopulmonary process including PE, ACS. Patient does not PERC out. While score for PE is low at 1.5. Therefore screening d-dimer in addition to cardiac labs will be obtained. COVID-19 swab will be obtained. Patient will be administered a 10 mg IV push of Cardizem and reevaluated. Cardizem drip will be ordered. She'll be given a 1 L fluid bolus. She was in agreement with this plan. Patient will be administered 224 mg aspirin as well. EKG initially showed atrial flutter with RVR. Following Cardizem administration, bolus only, the patient did obtain rate control and then converted to normal sinus rhythm with sinus bradycardia. Cardizem drip was held at this time. Repeat EKGs supported this finding seen on the monitor. Laboratory studies were remarkable for an elevated d-dimer of 1.54. Troponin is negative. Covid is negative. Patient is not . Due to the elevated d-dimer, I did recommend that we obtain a CT angio chest to rule out PE. Patient was in agreement with this plan. Prior to obtaining CT imaging, patient's heart rate did drop even lower to the mid to high 30s. Remained in sinus bradycardia, as evident by findings on repeat EKG 12 possible block. Patient was administered atropine with minimal improvement in symptoms, but her rate did slowly start to improve. Patient was moved to the trauma bay, as her initial room in room 20 was far from physicians and she required closer monitoring. Throughout her bradycardic episodes, patient remained asymptomatic in pressure remained stable with systolics from 95-110. Chest pain is completely resolved at this point. CT imaging was obtained and revealed no signs of acute pulmonary embolus. There are findings consistent with her prior cardiac surgeries and possible signs of heart failure. On reevaluation, patient remains asymptomatic. I would like to admit her to the hospital for her poorly-controlled atrial flutter as well as sinus bradycardia which she was in agreement. We discussed that I suspect her sinus bradycardia is likely related to medication sensitivity, as she did take a small dose of her home metoprolol prior to arriving in [facility] with rvr. This combined with the cardizem likely caused the sinus bradycardia. I spoke with Dr. Nix of [facility] over the phone, and he recommended that no further intervention be done on the patient's stable sinus bradycardia unless she becomes unstable. Cardiac echo was ordered at his request. Troponins will be trended. Consult was placed for evaluation the morning. I spoke with the admitting team under Dr. Marino who accepted the patient. Patient will be admitted to a telemetry bed in step down in serious condition. Heart rate is improving and is now back to 50 bpm. I re-evaluated the patient multiple times throughout her stay and she remained stable with improving heart rates. I called and spoke with the patient's mother, her legal guardian Soo, who was in agreement with the plan. I answered all questions that she had. - Lab Data Result diagrams: 06/08/21 20:41 06/08/21 20:41 Lab Results 06/08/21 06/08/21 06/08/21 Range/Units 20:41 20:41 20:41 WBC 6.3 (3.8-10.6) k/uL RBC 5.58 H (3.80-5.40) m/uL Hgb 15.5 (11.4-16.0) gm/dL Hct 46.4 H (34.0-46.0) % MCV 83.3 (80.0-100.0) fL MCH 27.8 (25.0-35.0) pg MCHC 33.4 (31.0-37.0) g/dL RDW 13.8 (11.5-15.5) % Plt Count 139 L (150-450) k/uL MPV 9.4 Neutrophils % 79 % Lymphocytes % 10 % Monocytes % 7 % Eosinophils % 2 % Basophils % 1 % Neutrophils # 5.0 (1.3-7.7) k/uL Lymphocytes # 0.7 L (1.0-4.8) k/uL Monocytes # 0.4 (0-1.0) k/uL Eosinophils # 0.2 (0-0.7) k/uL Basophils # 0.0 (0-0.2) k/uL PT 12.3 H (9.0-12.0) sec INR 1.2 H (<1.2) APTT 25.3 (22.0-30.0) sec D-Dimer 1.54 H (<0.60) mg/L FEU Sodium 136 L (137-145) mmol/L Potassium 3.9 (3.5-5.1) mmol/L Chloride 101 (98-107) mmol/L Carbon Dioxide 21 L (22-30) mmol/L Anion Gap 14 mmol/L BUN 20 H (7-17) mg/dL Creatinine 0.71 (0.52-1.04) mg/dL Est GFR (CKD-EPI)AfAm >90 (>60 ml/min/1.73 sqM) Est GFR (CKD-EPI)NonAf >90 (>60 ml/min/1.73 sqM) Glucose 84 (74-99) mg/dL Calcium 9.8 (8.4-10.2) mg/dL Magnesium 1.8 (1.6-2.3) mg/dL Total Bilirubin 1.2 (0.2-1.3) mg/dL AST 36 (14-36) U/L ALT 16 (4-34) U/L Alkaline Phosphatase 64 (38-126) U/L Troponin I (0.000-0.034) ng/mL Total Protein 8.6 H (6.3-8.2) g/dL Albumin 4.8 (3.5-5.0) g/dL HCG, Qual Coronavirus (PCR) (Not Detectd) 06/08/21 06/08/21 06/08/21 Range/Units 20:41 20:41 21:12 WBC (3.8-10.6) k/uL RBC (3.80-5.40) m/uL Hgb (11.4-16.0) gm/dL Hct (34.0-46.0) % MCV (80.0-100.0) fL MCH (25.0-35.0) pg MCHC (31.0-37.0) g/dL RDW (11.5-15.5) % Plt Count (150-450) k/uL MPV Neutrophils % % Lymphocytes % % Monocytes % % Eosinophils % % Basophils % % Neutrophils # (1.3-7.7) k/uL Lymphocytes # (1.0-4.8) k/uL Monocytes # (0-1.0) k/uL Eosinophils # (0-0.7) k/uL Basophils # (0-0.2) k/uL PT (9.0-12.0) sec INR (<1.2) APTT (22.0-30.0) sec D-Dimer (<0.60) mg/L FEU Sodium (137-145) mmol/L Potassium (3.5-5.1) mmol/L Chloride (98-107) mmol/L Carbon Dioxide (22-30) mmol/L Anion Gap mmol/L BUN (7-17) mg/dL Creatinine (0.52-1.04) mg/dL Est GFR (CKD-EPI)AfAm (>60 ml/min/1.73 sqM) Est GFR (CKD-EPI)NonAf (>60 ml/min/1.73 sqM) Glucose (74-99) mg/dL Calcium (8.4-10.2) mg/dL Magnesium (1.6-2.3) mg/dL Total Bilirubin (0.2-1.3) mg/dL AST (14-36) U/L ALT (4-34) U/L Alkaline Phosphatase (38-126) U/L Troponin I <0.012 (0.000-0.034) ng/mL Total Protein (6.3-8.2) g/dL Albumin (3.5-5.0) g/dL HCG, Qual Not Detected Coronavirus (PCR) Not Detected (Not Detectd) - EKG Data -: EKG Interpreted by Me EKG Comments: 12-lead Electrocardiogram Interpretation Note EKG was reviewed and interpreted by myself. 12-lead ECG performed at 2004 is interpreted by me as revealing atrial flutter with rapid ventricular response a 2:1. At a rate of 158 beats per minute. Grethel is normal. VT interval is 130 ms, QRS duration is 94 ms, QTc is 420 ms.. There were no ST or T wave abno rmalities to suggest myocardial ischemia or injury. R wave progression across the precordium was satisfactory. By my interpretation this EKG is non-diagnostic for acute ischemia. It is concerning with atrial flutter and rapid ventricular response at 2:1. Repeat EKG was obtained following 10 mg IV push of Cardizem. 12-lead Electrocardiogram Interpretation Note EKG was reviewed and interpreted by myself. 12-lead ECG performed at 2031 is interpreted by me as revealing atrial flutter with variable block. At a rate of 108 beats per minute. Grethel is normal. VT interval is unobtainable, QRS dur ations 106 ms, QTc is 361 ms.. There were no ST or T wave abnormalities to suggest myocardial ischemia or injury. R wave progression across the precordium was satisfactory. By my interpretation this EKG is non-diagnostic for acute ischemia. Remarkable for better rate controlled atrial flutter. 3rd ekg obtained when she converted to sinus rhythm. 12-lead Electrocardiogram Interpretation Note EKG was reviewed and interpreted by myself. 12-lead ECG performed at 2057 is interpreted by me as revealing sinus bradycardia at a rate of 49 beats per minute. Grethel is normal. VT interval is 186 ms, QRS duration is 92 ms, QTc is 410 ms.. Patient does have an isolated T-wave inversion in lead V2. No other acute ST segment or T-wave abnormalities.. R wave progression across the precordium was satisfactory. By my interpretation this EKG is non-diagnostic for acute ischemia. 4th EKG with worsening sinus bradycardia. 12-lead Electrocardiogram Interpretation Note EKG was reviewed and interpreted by myself. 12-lead ECG performed at 2224 is interpreted by me as revealing sinus bradycardia at a rate of 37 beats per minute. Grethel is normal. VT interval is 186 ms, QRS duration is 76 ms, QTc is 409 ms.. There were no ST or T wave abnormalities to suggest myocardial ischemia or injury. R wave progression across the precordium was satisfactory. By my interpretation this EKG is non-diagnostic for acute ischemia. Critical Care Time Critical Care Time: Yes Total Critical Care Time: 35 Critical Care Time: Upon my evaluation, this patient had a high probability of imminent or life- threatening deterioration due to atrial flutter with RVR, sinus bradycardia, which required my direct attention, intervention, and personal management. I have personally provided 35 minutes of critical care time exclusive of time spent on separately billable procedures. Time includes review of laboratory data, radiology results, discussion with consultants, and monitoring for potential decompensation. Interventions were performed as documented in my note. Disposition Clinical Impression: Atrial flutter with rapid ventricular response, Sinus bradycardia, Dyspnea, Elevated d-dimer, Chest pain, History of heart surgery, History of congenital heart disease Disposition: ADMITTED IP TO THIS HOSP Condition: Serious
[2021-06-08] MEDS ORDERED: ATROPINE SULFATE 0.1 MG/ML 10ML SYRINGE IV STA ×2 (22:14→22:31)
[2021-06-08] MEDS ORDERED: POTASSIUM CHLORIDE ER 20 MEQ TAB.ER PO STA (22:35)
[2021-06-08] MEDS ORDERED: MAGNESIUM SULFATE-D5W PMX 1 GM in DEXTROSE/WATER 1 100ML.BAG IVPB ONE (22:35)
--- NOTE | 2021-06-08 23:14 | CT ---
EXAMINATION TYPE: CT chest angio for PE DATE OF EXAM: 06/08/2021 COMPARISON: 12/13/2020 HISTORY: elevated d-dimer, posterior chest pain CT DLP: 199.2 mGycm Automated exposure control for dose reduction was used. CONTRAST: Performed with IV Contrast, patient injected with 73cc mL of Isovue 370. There are 3-D post processed images. There is moderate groundglass interstitial infiltrate throughout both lungs. There is no mediastinal adenopathy. There is 4.6 cm aneurysm of the ascending aorta. There is no dissection. There are no hil ar masses. Heart is enlarged. There is deformity of the heart in the right ventricle is at the right side of the heart. I see no evidence of filling defect in the pulmonary arteries. There is some thick ening of the anterior wall of the left ventricle. There is previous cardiac surgery. Thoracic spine is intact. There is no compression fracture. There is abdominal ascites noted. There i s contrast reflux into the inferior vena cava. IMPRESSION: No evidence of pulmonary embolism. Cardiomegaly with cardiac surgery. Cardiac deformity. Contrast reflux into the inferior vena cava sug gestive of heart failure. Diffuse interstitial edema or pneumonia. Pulmonary interstitial densities i ncreased compared to old exam. Aortic aneurysm unchanged.
[2021-06-08] MEDS ORDERED: IBUPROFEN 400 MG TAB PO PRN (23:15)
[2021-06-09 03:35] LABS: Basophils % (A) 1 %; Eosinophils # (A) 0.1 k/uL (0-0.7); Eosinophils % (A) 3 %; HGB 13.7 gm/dL (11.4-16.0); Lymphocytes # (A) 0.7 k/uL (1.0-4.8); Lymphocytes % (A) 14 %; MCH 27.8 pg (25.0-35.0); MCHC 32.5 g/dL (31.0-37.0); MCV 85.5 fL (80.0-100.0); Mean Platelet Volume 9.4; Monocytes # (A) 0.5 k/uL (0-1.0); Monocytes % (A) 9 %; Neutrophils # (A) 3.6 k/uL (1.3-7.7); Neutrophils % (A) 71 %; Platelet Count 119 k/uL (150-450); RBC 4.92 m/uL (3.80-5.40); RDW 13.8 % (11.5-15.5); WBC 5.1 k/uL (3.8-10.6)
[2021-06-09 03:50] LABS: African American GFR (CKD) >90 (>60 ml/min/1.73 sqM); Anion Gap 8 mmol/L; Blood Urea Nitrogen 17 mg/dL (7-17); Calcium 8.7 mg/dL (8.4-10.2); Carbon Dioxide 20 mmol/L (22-30); Chloride 107 mmol/L (98-107); Glucose 91 mg/dL (74-99); Non-African American GFR(CKD) >90 (>60 ml/min/1.73 sqM); Potassium 4.3 mmol/L (3.5-5.1); Sodium 135 mmol/L (137-145)
[2021-06-09] MEDS ORDERED: ENOXAPARIN 40 MG/0.4 ML SYRINGE SQ SCH (09:00)
--- NOTE | 2021-06-09 13:23 | P.CRDCN ---
History of Present Illness Consult date: 06/09/21 History of present illness: HISTORY OF PRESENT ILLNESS: This is a 40-year-old female with a past medical history significant for atrial flutter, congenital heart defect with surgery at age 7, and enlarged liver. Patient used to follow in office with Dr. Nix but has not been seen in the office since 2014. Patient also reports she used to follow with a congenital family centered specialist at [facility] but no longer follows with him since he retired. We have been asked to see the patient in consultation for atrial flutter. Patient examined at the bedside. Patient presented to the hospital secondary to a chief complaint of chest pain and palpitations. Patient also reports feeling dizzy when she was feeling her palpitations. Patient denies any loss of consciousness at home. Patient states she was not taking her metoprolol regularly at home because she is trying to get and she was not sure if this would be safe to continue taking. The patient was found to be in a flutter with RVR on presentation to the hospital. Patient was started on IV Cardizem. She subsequently converted to sinus mechanism and then became bradycardic with heart rate in the 30s. Her Cardizem was discontinued. At the time of my examination patient remains in sinus rhythm with a heart rate in the 50s. She currently denies chest pain or pressure. Denies shortness of breath. Denies palpitations. EKG reveals a flutter with RVR. Repeat EKG reveals sinus bradycardia with a heart rate in the 30s. Chest CTA: No evidence of pulmonary embolism. Laboratory data: WBC 5.1. Hemoglobin 13.7. Platelet count 119. D-dimer 1.54. Sodium 135. Potassium 4.3. BUN 17. Creatinine 0.61. Magnesium 1.8. Troponin 0.012. 0.037. 0.029. Current home cardiac medications include metoprolol tartrate 25 mg in the morning and 12.5 mg at night Most recent echocardiogram obtained in December 2020 revealed ejection fraction 50- 55%, mild mitral regurgitation, and mild aortic regurgitation. REVIEW OF SYSTEMS: At the time of my exam: CONSTITUTIONAL: Denies fever or chills. HEENT: Denies blurred vision, vision changes, or eye pain. Denies hemoptysis CARDIOVASCULAR: Denies chest pain. Denies orthopnea. Denies PND. Denies p alpitations RESPIRATORY: Denies shortness of breath. GASTROINTESTINAL: Denies abdominal pain. Denies nausea or vomiting. HEMATOLOGIC: Denies bleeding disorders. GENITOURINARY: Denies any blood in urine. SKIN: Denies pruitis. Denies rash. PHYSICAL EXAM: VITAL SIGNS: Reviewed. GENERAL: Well-developed in no acute distress. HEENT: Head is normocephalic. Pupils are equal, round. Sclerae anicteric. Mucous membranes of the mouth are moist. Neck supple. No JVD or thyromegaly LUNGS: Respirations even and unlabored. Lungs essentially clear to auscultation bilaterally. HEART: Regular rate and rhythm. S1 and S2 heard. ABDOMEN: Soft. Nondistended. Nontender. EXTREMITIES: Normal range of motion. No clubbing or cyanosis. Peripheral pulses intact. No lower extremity edema NEUROLOGIC: Awake and alert. Oriented x 3. ASSESSMENT: Palpitations Atypical atrial flutter with RVR Sinus bradycardia following administration of IV Cardizem History of liver cirrhosis with previous paracentesis History of congenital heart defect with open heart surgery at age 7 Medical noncompliance PLAN: Obtain 2D echo to assess cardiac structure and function Continue telemetry monitoring Resume home dose of metoprolol Begin Eliquis 5mg PO BID. Case management consulted for insurance coverage Check TSH Recommend patient follow up with a congenital family centered specialist post discharge Further recommendations pending patient course Nurse practitioner note has been reviewed by physician. Signing provider agrees with the documented findings, assessment, and plan of care. 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 7, Past Anesthesia/Blood Transfusion Reactions: Previous Problems w/ Anesthesia Additional Past Anesthesia/Blood Transfusion Reaction / Comment(s): Patient states she is allergic to anesthesia during 2018 heart cath -- had numbness in right face and left hand, states anesthesiologists indicated if next procedure, would have to be adjusted Past Psychological History: No Psychological Hx Reported Smoking Status: Never smoker Past Alcohol Use History: None Reported Past Drug Use History: None Reported - Past Family History Mother Family Medical History: Asthma, Cancer, Hyperlipidemia, Hypertension Additional Family Medical History / Comment(s): Mother had breast CA at age 52 Brother(s) Family Medical History: Asthma Father Family Medical History: Asthma Medications and Allergies Home Medications Medication Instructions Recorded Confirmed Type Metoprolol Tartrate 25 mg PO DAILY 30 Days #30 tab 12/28/20 06/08/21 Rx Nitroglycerin Sl Tabs [Nitrostat] 0.4 mg SUBLINGUAL Q5M PRN tab 12/28/20 06/08/21 Rx Ibuprofen [Motrin] 800 mg PO Q8H PRN 06/08/21 06/08/21 History Metoprolol Tartrate [Lopressor] 12.5 mg PO HS 06/08/21 06/08/21 History Allergies Allergy/AdvReac Type Severity Reaction Status Date / Time warfarin sodium Allergy Anaphylaxis Verified 06/08/21 21:05 [From Coumadin] peas AdvReac Diarrhea Verified 06/08/21 21:05 Physical Exam Vitals: Vital Signs Temp Pulse Pulse Resp BP BP Pulse Ox 06/09/21 11:08 50 L 06/09/21 11:06 97.9 F 50 L 18 84/53 98 06/09/21 08:00 48 L 06/09/21 07:52 97.8 F 48 L 18 89/59 96 06/09/21 06:29 84/51 06/09/21 03:15 49 L 18 80/52 94 L 06/09/21 01:30 97.7 F 48 L 20 107/68 95 06/08/21 23:38 51 L 18 109/81 97 06/08/21 22:41 42 L 18 100/74 06/08/21 21:30 42 L 16 107/61 95 06/08/21 21:25 42 L 18 108/70 06/08/21 21:15 40 L 18 98/66 06/08/21 20:40 70 20 111/73 94 L 06/08/21 20:35 120 H 20 113/76 95 06/08/21 20:30 140 H 20 133/79 95 06/08/21 20:20 156 H 06/08/21 19:53 97.6 F 158 H 20 102/79 92 L Intake and Output 06/08/21 06/09/21 06/09/21 22:59 06:59 14:59 Output Total 1 Balance -1 Output: Urine 1 Other: Voiding Method Bedside Commode Weight 57.379 kg 57.379 kg Results 06/09/21 02:48 06/09/21 02:48 Cardiac Enzymes 06/08/21 06/08/21 06/08/21 Range/Units 20:41 20:41 23:54 AST 36 (14-36) U/L Troponin I <0.012 0.037 H* (0.000-0.034) ng/mL 06/09/21 Range/Units 02:48 AST (14-36) U/L Troponin I 0.029 (0.000-0.034) ng/mL Coagulation 06/08/21 Range/Units 20:41 PT 12.3 H (9.0-12.0) sec APTT 25.3 (22.0-30.0) sec CBC 06/08/21 06/09/21 Range/Units 20:41 02:48 WBC 6.3 5.1 (3.8-10.6) k/uL RBC 5.58 H 4.92 (3.80-5.40) m/uL Hgb 15.5 13.7 (11.4-16.0) gm/dL Hct 46.4 H 42.0 (34.0-46.0) % Plt Count 139 L 119 L (150-450) k/uL Comprehensive Metabolic Panel 06/08/21 06/09/21 Range/Units 20:41 02:48 Sodium 136 L 135 L (137-145) mmol/L Potassium 3.9 4.3 (3.5-5.1) mmol/L Chloride 101 107 (98-107) mmol/L Carbon Dioxide 21 L 20 L (22-30) mmol/L BUN 20 H 17 (7-17) mg/dL Creatinine 0.71 0.61 (0.52-1.04) mg/dL Glucose 84 91 (74-99) mg/dL Calcium 9.8 8.7 (8.4-10.2) mg/dL AST 36 (14-36) U/L ALT 16 (4-34) U/L Alkaline Phosphatase 64 (38-126) U/L Total Protein 8.6 H (6.3-8.2) g/dL Albumin 4.8 (3.5-5.0) g/dL Current Medications Generic Name Dose Route Start Last Admin Trade Name Freq PRN Reason Stop Dose Admin Enoxaparin Sodium 40 mg 06/09/21 09:00 06/09/21 07:52 Enoxaparin 40 Mg/0.4 Ml Syringe SQ 40 mg DAILY PIOTR Administration Ibuprofen 400 mg 06/08/21 23:15 Ibuprofen 400 Mg Tab PO Q6HR PRN Mild Pain or Fever > 100.5 Intake and Output 06/08/21 06/09/21 06/09/21 22:59 06:59 14:59 Output Total 1 Balance -1 Output: Urine 1 Other: Voiding Method Bedside Commode Weight 57.379 kg 57.379 kg 06/09/21 02:48 06/09/21 02:48
[2021-06-09] MEDS: APIXABAN 5 MG TAB PO SCH ×2 (14:47→19:52)
[2021-06-09] MEDS ORDERED: IOPAMIDOL CONTRAST (ORAL USE) VIAL PO PRN (15:15)
--- NOTE | 2021-06-09 17:00 | ECHOF ---
Referral Reason:chest pain, sinus bradycardia, aflutter with rvr MEASUREMENTS -------- HEIGHT: 162.6 cm WEIGHT: 57.2 kg BP: 84/51 IVSd: 1.3 cm (0.6 - 1.1) LVIDd: 4.0 cm (3.9 - 5.3) LVPWd: 1.7 cm (0.6 - 1.1) EDV(Teich): 70 ml IVSs: 2.0 cm LVIDs: 2.6 cm LVPWs: 1.9 cm %IVS Thck: 50 % ESV(Teich): 25 ml EF(Teich): 64 % %FS: 34 % SV(Teich): 45 ml IVSd: 2.3 cm (0.6 - 1.1) RA Diam: 6.7 cm LALs A4C: 5.6 cm LAAs A4C: 13.7 cm LAESV A-L A4C: 28 ml LAESV MOD A4C: 27 ml LALs A2C: 5.0 cm LAAs A2C: 18.1 cm LAESV A-L A2C: 56 ml LAESV MOD A2C: 53 ml LAESV(A-L): 42 ml LAESV Index (A-L): 26.18 ml/m Ao Diam: 3.7 cm (2.0 - 3.7) AV Cusp: 2.2 cm (1.5 - 2.6) LVOT Vmax: 0.73 m/s LVOT maxP.10 mmHg AV Vmax: 0.94 m/s AV maxP.52 mmHg AR Vmax: 3.95 m/s AR maxP.37 mmHg AR PHT: 557 ms AR Dec Time: 1922 ms AR Dec [place]: 2.1 m/s FINDINGS -------- Sinus rhythm. This was a technically adequate study. The left ventricular size is normal. There is moderate concentric left ventricular hypertrophy. O verall left ventricular systolic function is low-normal with, an EF between 50 - 55 %. Patient had Fontan procedure done. The RV was not well visualized. Left atrium is normal size by volume. The right atrial size is normal. Interatrial and interventricular septum intact. There is mild aortic regurgitation. Mild mitral regurgitation is present. The tricuspid valve was not well visualized. The pulmonic valve was not well visualized. There is no pericardial effusion. CONCLUSIONS -------- 1. The left ventricular size is normal. 2. Overall left ventricular systolic function is low-normal with, an EF between 50 - 55 %. 3. Patient had Fontan procedure done. FERRIS WHEEL ATTENDANT: Mary Alice Vu RDCS
--- NOTE | 2021-06-09 19:05 | P.HPIM ---
History of Present Illness H&P Date: 06/09/21 Asuncion Rizzo, is a 14-year-old female with known history of congenital heart disease who presented to [facility] emergency room with a chief complaint of chest pain and palpitation She was evaluated in the emergency room vital examination on presentation revealed a temperature of 97.6 pulse 158 respiration 20 pressure 102/79 pulse ox 92% on room air, patient was found to be in atrial flutter with rapid ventricular response Laboratory data revealed a white blood count of 6.3 hemoglobin 15.5 platelet count 139 d-dimer 1.54 sodium 136 potassium 3.9 chloride 101 CO2 21 BUN 20 c reatinine 0.71 Patient was given a loading dose of Cardizem in emergency room at that time she regained normal sinus rhythm Patient was admitted to medical floor for further evaluation and treatment. Past medical history is significant for congenital heart disease, with history of cardiac surgery in infancy, history of hypothyroidism, previous history of cardiac arrhythmia, history of liver cirrhosis was history of ascites requiring paracentesis in the past, and history of severe noncompliance with medical management patient is supposed to be on multiple medications which she has not been taking. 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 7, Past Anesthesia/Blood Transfusion Reactions: Previous Problems w/ Anesthesia Additional Past Anesthesia/Blood Transfusion Reaction / Comment(s): Patient states she is allergic to anesthesia during 2018 heart cath -- had numbness in right face and left hand, states anesthesiologists indicated if next procedure, would have to be adjusted Past Psychological History: No Psychological Hx Reported Smoking Status: Never smoker Past Alcohol Use History: None Reported Past Drug Use History: None Reported - Past Family History Mother Family Medical History: Asthma, Cancer, Hyperlipidemia, Hypertension Additional Family Medical History / Comment(s): Mother had breast CA at age 52 Brother(s) Family Medical History: Asthma Father Family Medical History: Asthma Medications and Allergies Home Medications Medication Instructions Recorded Confirmed Type Metoprolol Tartrate 25 mg PO DAILY 30 Days #30 tab 12/28/20 06/08/21 Rx Nitroglycerin Sl Tabs [Nitrostat] 0.4 mg SUBLINGUAL Q5M PRN tab 12/28/20 06/08/21 Rx Ibuprofen [Motrin] 800 mg PO Q8H PRN 06/08/21 06/08/21 History Metoprolol Tartrate [Lopressor] 12.5 mg PO HS 06/08/21 06/08/21 History Apixaban [Eliquis] 5 mg PO BID #60 tab 06/09/21 Rx Allergies Allergy/AdvReac Type Severity Reaction Status Date / Time warfarin sodium Allergy Anaphylaxis Verified 06/08/21 21:05 [From Coumadin] peas AdvReac Diarrhea Verified 06/08/21 21:05 Physical Exam Vitals: Vital Signs Temp Pulse Pulse Resp BP BP Pulse Ox 06/09/21 11:08 50 L 06/09/21 11:06 97.9 F 50 L 18 84/53 98 06/09/21 08:00 48 L 06/09/21 07:52 97.8 F 48 L 18 89/59 96 06/09/21 06:29 84/51 06/09/21 03:15 49 L 18 80/52 94 L 06/09/21 01:30 97.7 F 48 L 20 107/68 95 06/08/21 23:38 51 L 18 109/81 97 06/08/21 22:41 42 L 18 100/74 06/08/21 21:30 42 L 16 107/61 95 06/08/21 21:25 42 L 18 108/70 06/08/21 21:15 40 L 18 98/66 06/08/21 20:40 70 20 111/73 94 L 06/08/21 20:35 120 H 20 113/76 95 06/08/21 20:30 140 H 20 133/79 95 06/08/21 20:20 156 H 06/08/21 19:53 97.6 F 158 H 20 102/79 92 L Intake and Output 06/08/21 06/09/21 06/09/21 22:59 06:59 14:59 Output Total 1 Balance -1 Output: Urine 1 Other: Voiding Method Bedside Commode Weight 57.379 kg 57.379 kg In general patient is alert and oriented x 3 in no distress HEENT head normocephalic and atraumatic Neck is supple no JVD no goiter no lymphadenopathy no carotid bruit Chest examination is clear to auscultation no crackles no wheezing Cardiac exam reveals regular heart sounds S1 and S2 no gallops no murmurs Abdomen is soft with tenderness in bilateral lower quadrants, with evidence of hepatosplenomegaly Extremity exam reveals no edema no cyanosis or clubbing Neurological examination reveals no gross focal deficits Results CBC & Chem 7: 06/09/21 02:48 06/09/21 02:48 Labs: Abnormal Lab Results - Last 24 Hours (Table) 06/08/21 06/08/21 06/08/21 Range/Units 20:41 20:41 20:41 RBC 5.58 H (3.80-5.40) m/uL Hct 46.4 H (34.0-46.0) % Plt Count 139 L (150-450) k/uL Lymphocytes # 0.7 L (1.0-4.8) k/uL PT 12.3 H (9.0-12.0) sec INR 1.2 H (<1.2) D-Dimer 1.54 H (<0.60) mg/L FEU Sodium 136 L (137-145) mmol/L Carbon Dioxide 21 L (22-30) mmol/L BUN 20 H (7-17) mg/dL Troponin I (0.000-0.034) ng/mL Total Protein 8.6 H (6.3-8.2) g/dL 06/08/21 06/09/21 06/09/21 Range/Units 23:54 02:48 02:48 RBC (3.80-5.40) m/uL Hct (34.0-46.0) % Plt Count 119 L (150-450) k/uL Lymphocytes # 0.7 L (1.0-4.8) k/uL PT (9.0-12.0) sec INR (<1.2) D-Dimer (<0.60) mg/L FEU Sodium 135 L (137-145) mmol/L Carbon Dioxide 20 L (22-30) mmol/L BUN (7-17) mg/dL Troponin I 0.037 H* (0.000-0.034) ng/mL Total Protein (6.3-8.2) g/dL Assessment and Plan Plan: Atrial flutter with rapid ventricular response Elevated d-dimer with negative computed tomography scan of the chest for pulmonary embolism Underlying history of congenital heart disease Underlying history of liver cirrhosis Underlying history of hypothyroidism Severe noncompliance with medical management Complaint of pelvic pain At this time patient will be admitted to telemetry floor cardiology consultation was requested Patient currently in normal sinus rhythm her main complaint is pain in the pelvic area Will obtain urine analysis will obtain computed tomography scan of the abdomen and pelvis Will check TSH patient has a known history of hypothyroidism Patient was counseled in length in regards to importance of taking medications regularly Will follow in a.m.
[2021-06-09] MEDS: METOPROLOL TARTRATE 12.5 MG TAB PO SCH (20:07)
[2021-06-09] MEDS: SODIUM CHLORIDE 0.9% 1,000 ML IV SCH (20:24)
[2021-06-10] MEDS: LEVOTHYROXINE 25 MCG TAB PO SCH (06:09)
[2021-06-10] MEDS: SODIUM CHLORIDE 0.9% 1,000 ML IV SCH (06:09)
[2021-06-10] MEDS ORDERED: IOPAMIDOL-250 50ML BTL IV SCH (08:00)
[2021-06-10] MEDS: IOPAMIDOL CONTRAST (ORAL USE) VIAL PO PRN ×2 (08:17→09:10)
[2021-06-10] MEDS: APIXABAN 5 MG TAB PO SCH ×2 (08:25→20:32)
[2021-06-10] MEDS: METOPROLOL TARTRATE 25 MG TAB PO SCH (08:26)
[2021-06-10 08:41] LABS: Appearance,Urine Cloudy (Clear); Bilirubin,Urine Negative (Negative); Blood,Urine Negative (Negative); Color,Urine Yellow; Glucose,Urine (UA) Negative (Negative); Ketones,Urine Negative (Negative); Leukocyte Esterase,Urine Negative (Negative); Mucus,Urine Few /hpf; Nitrite,Urine Negative (Negative); PH, Urine 5.5 (5.0-8.0); Protein,Urine Negative (Negative); RBC,Urine 1 /hpf (0-5); Specific Gravity,Urine 1.025 (1.001-1.035); Squamous Epithelial Cell,Urine 3 /hpf (0-4); Urobilinogen,Urine <2.0 mg/dL (<2.0); WBC,Urine 1 /hpf (0-5)
--- NOTE | 2021-06-10 12:08 | CT ---
EXAMINATION TYPE: CT abdomen pelvis w con DATE OF EXAM: 06/10/2021 COMPARISON: 02/04/2020 INDICATION: Abd & pelvic pain DLP: 844.7 mGycm, Automated exposure control for dose reduction was used. CONTRAST: 100 mL of Isovue 300. Study performed with Oral Contrast TECHNIQUE: Axial images were obtained from above the diaphragm to the pubic rami in the axial plane a t 5 mm thick sections. Reconstructed images are reviewed on the computer in the coronal plane. FINDINGS: Limited CT sections are obtained the lung bases. The lung bases are clear. Small bilateral pleural effusions are present. CT ABDOMEN: Diffuse ascites is present throughout the abdomen. Liver: Liver is heterogenous and has a lobular pattern. Correlate for cirrhosis. Spleen: Spleen is enlarged. Pancreas: Normal Adrenal glands: The adrenal glands are normal. Gallbladder: Normal Kidneys: No masses are evident. No hydronephrosis is present. No cysts are present. Delayed images were obtained through the kidneys, which remain unremarkable. Aorta: Normal Inferior vena cava: Normal. CT PELVIS: Fluid is present through the pelvis. Loops of bowel within the abdomen and pelvis are normal. There are loops of bowel which are incom pletely distended or lack oral contrast limiting their evaluation. Appendix: Normal as visualized. Urinary bladder: Normal. Genitourinary structures: Uterus is normal. Adnexal regions are clear. Osseous structures: No suspicious lytic or sclerotic lesions are evident. IMPRESSIONS: 1. Ascites. 2. Clinical correlation recommended for cirrhosis. 3. Splenomegaly
--- NOTE | 2021-06-10 12:28 | P.PN ---
Subjective Progress Note Date: 06/10/21 HISTORY OF PRESENT ILLNESS: This is a 40-year-old female with a past medical history significant for atrial flutter, congenital heart defect with surgery at age 7, and enlarged liver. Patient used to follow in office with Dr. Nix but has not been seen in the office since 2014. Patient also reports she used to follow with a congenital internal control specialist at [facility] but no longer follows with him since he retired. We have been asked to see the patient in consultation for atrial flutter. Patient examined at the bedside. Patient presented to the hospital secondary to a chief complaint of chest pain and palpitations. Patient also reports feeling dizzy when she was feeling her palpitations. Patient denies any loss of consciousness at home. Patient states she was not taking her metoprolol regularly at home because she is trying to get and she was not sure if this would be safe to continue taking. The patient was found to be in a flutter with RVR on presentation to the hospital. Patient was started on IV Cardizem. She subsequently converted to sinus mechanism and then became bradycardic with heart rate in the 30s. Her Cardizem was discontinued. At the time of my examination patient remains in sinus rhythm with a heart rate in the 50s. She c urrently denies chest pain or pressure. Denies shortness of breath. Denies palpitations. EKG reveals a flutter with RVR. Repeat EKG reveals sinus bradycardia with a heart rate in the 30s. Chest CTA: No evidence of pulmonary embolism. Laboratory data: WBC 5.1. Hemoglobin 13.7. Platelet count 119. D-dimer 1.54. Sodium 135. Potassium 4.3. BUN 17. Creatinine 0.61. Magnesium 1.8. Troponin 0.012. 0.037. 0.029. Current home cardiac medications include metoprolol tartrate 25 mg in the mor tiffanie and 12.5 mg at night Most recent echocardiogram obtained in December 2020 revealed ejection fraction 50- 55%, mild mitral regurgitation, and mild aortic regurgitation. 06/10/2021 Patient examined this morning at the bedside. Patient denies chest pain or pressure. She denies shortness of breath. Telemetry reveals sinus bradycardia. She complains of abdominal pain and distention. She is scheduled for CT abdomen and pelvis today. Echocardiogram completed revealing ejection fraction 50-55%, mild aortic regurgitation, and mild mitral regurgitation. PHYSICAL EXAM: VITAL SIGNS: Reviewed. GENERAL: Well-developed in no acute distress. HEENT: Head is normocephalic. Pupils are equal, round. Sclerae anicteric. Mucous membranes of the mouth are moist. Neck supple. No JVD or thyromegaly LUNGS: Respirations even and unlabored. Lungs essentially clear to auscultation bilaterally. HEART: Regular rate and rhythm. S1 and S2 heard. EXTREMITIES: Normal range of motion. No clubbing or cyanosis. Peripheral pulses intact. No lower extremity edema ASSESSMENT: Palpitations Paroxysmal atypical atrial flutter with RVR Sinus bradycardia following administration of IV Cardizem History of Fontan procedure Medical noncompliance PLAN: Current cardiac medications including metoprolol Continue anticoagulation with Eliquis Recommend patient follow up with a congenital internal control specialist post discharge She is stable for discharge home today from a cardiac standpoint Nurse practitioner note has been reviewed by physician. Signing provider agrees with the documented findings, assessment, and plan of care. Objective - Vital Signs Vital signs: Vital Signs Temp 97.9 F 06/10/21 08:00 Pulse 53 L 06/10/21 08:00 Resp 16 06/10/21 08:00 BP 93/65 06/10/21 08:00 Pulse Ox 92 L 06/10/21 08:00 Intake & Output 06/09/21 06/10/21 06/10/21 18:59 06:59 18:59 Intake Total 240 Balance 240 Weight 60 kg Intake: Oral 240 Other: Voiding Method Toilet # Voids 1 - Labs CBC & Chem 7: 06/09/21 02:48 06/09/21 02:48 Labs: Abnormal Lab Results - Last 24 Hours (Table) 06/09/21 06/10/21 Range/Units 02:48 08:20 TSH 12.500 H (0.465-4.680) mIU/L Urine Appearance Cloudy H (Clear) Urine Mucus Few H (None) /hpf
--- NOTE | 2021-06-10 17:35 | P.PN ---
Subjective Progress Note Date: 06/10/21 Asuncion Rizzo, is a 40-year-old female with known history of congenital heart disease who presented to [facility] emergency room with a chief complaint of chest pain and palpitation She was evaluated in the emergency room vital examination on presentation revealed a temperature of 97.6 pulse 158 respiration 20 pressure 102/79 pulse ox 92% on room air, patient was found to be in atrial flutter with rapid ventricular response Laboratory data revealed a white blood count of 6.3 hemoglobin 15.5 platelet count 139 d-dimer 1.54 sodium 136 potassium 3.9 chloride 101 CO2 21 BUN 20 creatinine 0.71 Patient was given a loading dose of Cardizem in emergency room at that time she regained normal sinus rhythm Patient was admitted to medical floor for further evaluation and treatment. Past medical history is significant for congenital heart disease, with history of cardiac surgery in infancy, history of hypothyroidism, previous history of cardiac arrhythmia, history of liver cirrhosis was history of ascites requiring paracentesis in the past, and history of severe noncompliance with medical management patient is supposed to be on multiple medications which she has not been taking. On 06/10/2021 patient was seen and examined on the medical floor she is alert and oriented 3 in no apparent distress she is complaining of abdominal and pelvic pain otherwise she denies any complaints at this time there is no fever or chills no headache or dizziness no chest pain no shortness of breath no cough no nausea or vomiting no diarrhea no blood in stools no burning with urination no frequency or urgency no hematuria. Computed tomography scan of the abdomen and pelvis reveals evidence of ascites. Otherwise no acute abnormality, at this time will give IV Lasix, and monitor improvement if better and no sign of any infection possible discharge to home in the next 1-2 days. Patient was counseled in length again today in regard to taking medications at home to prevent decline in her health and readmission to the hospital. Objective - Vital Signs Vital signs: Vital Signs Temp 97.8 F 06/10/21 12:00 Pulse 56 L 06/10/21 14:00 Resp 16 06/10/21 14:00 BP 90/62 06/10/21 12:00 Pulse Ox 94 L 06/10/21 12:00 Intake & Output 06/09/21 06/10/21 06/10/21 18:59 06:59 18:59 Intake Total 240 Output Total 300 Balance 240 -300 Weight 60 kg Intake: Oral 240 Output: Urine 300 Other: Voiding Method Toilet Toilet # Voids 1 - Exam In general patient is alert and oriented x 3 in no distress HEENT head normocephalic and atraumatic Neck is supple no JVD no goiter no lymphadenopathy no carotid bruit Chest examination is clear to auscultation no crackles no wheezing Cardiac exam reveals regular heart sounds S1 and S2 no gallops no murmurs Abdomen is soft with tenderness in bilateral lower quadrants, with evidence of hepatosplenomegaly Extremity exam reveals no edema no cyanosis or clubbing Neurological examination reveals no gross focal deficits - Labs CBC & Chem 7: 06/09/21 02:48 06/09/21 02:48 Labs: Abnormal Lab Results - Last 24 Hours (Table) 06/10/21 Range/Units 08:20 Urine Appearance Cloudy H (Clear) Urine Mucus Few H (None) /hpf Assessment and Plan Plan: Atrial flutter with rapid ventricular response Elevated d-dimer with negative computed tomography scan of the chest for pulmonary embolism Underlying history of congenital heart disease Underlying history of liver cirrhosis Underlying history of hypothyroidism Severe noncompliance with medical management Complaint of pelvic pain, computed tomography scan revealing evidence of ascites otherwise no acute abnormality At this time patient will be admitted to telemetry floor cardiology consultation was requested Patient currently in normal sinus rhythm her main complaint is pain in the pelvic area Will obtain urine analysis will obtain computed tomography scan of the abdomen and pelvis Will check TSH patient has a known history of hypothyroidism Patient was counseled in length in regards to importance of taking medications regularly Will follow in a.m.
[2021-06-10] MEDS: FUROSEMIDE 10 MG/ML 2 ML VIAL IV SCH (18:54)
[2021-06-10] MEDS: METOPROLOL TARTRATE 12.5 MG TAB PO SCH (20:31)
[2021-06-11] MEDS: FUROSEMIDE 10 MG/ML 2 ML VIAL IV SCH ×2 (04:32→09:55)
[2021-06-11] MEDS: LEVOTHYROXINE 25 MCG TAB PO SCH (06:30)
[2021-06-11 07:49] LABS: Basophils % (A) 1 %; Eosinophils # (A) 0.2 k/uL (0-0.7); Eosinophils % (A) 4 %; HCT 45.5 % (34.0-46.0); HGB 14.3 gm/dL (11.4-16.0); Lymphocytes # (A) 0.5 k/uL (1.0-4.8); Lymphocytes % (A) 8 %; MCHC 31.5 g/dL (31.0-37.0); MCV 88.8 fL (80.0-100.0); Mean Platelet Volume 9.2; Monocytes # (A) 0.4 k/uL (0-1.0); Monocytes % (A) 7 %; Neutrophils # (A) 4.3 k/uL (1.3-7.7); Neutrophils % (A) 80 %; Platelet Count 132 k/uL (150-450); RBC 5.12 m/uL (3.80-5.40); RDW 13.8 % (11.5-15.5); WBC 5.4 k/uL (3.8-10.6)
[2021-06-11 08:04] LABS: ALT 14 U/L (4-34); AST 28 U/L (14-36); African American GFR (CKD) >90 (>60 ml/min/1.73 sqM); Albumin 4.1 g/dL (3.5-5.0); Alkaline Phosphatase 59 U/L (38-126); Anion Gap 9 mmol/L; Blood Urea Nitrogen 12 mg/dL (7-17); Carbon Dioxide 26 mmol/L (22-30); Chloride 102 mmol/L (98-107); Glucose 89 mg/dL (74-99); Non-African American GFR(CKD) 86 (>60 ml/min/1.73 sqM); Potassium 4.1 mmol/L (3.5-5.1); Sodium 137 mmol/L (137-145); Total Bilirubin 0.8 mg/dL (0.2-1.3); Total Protein 7.5 g/dL (6.3-8.2)
[2021-06-11] MEDS: APIXABAN 5 MG TAB PO SCH (09:53)
[2021-06-11] MEDS: METOPROLOL TARTRATE 25 MG TAB PO SCH (09:53)
[2021-06-11 10:20] VITALS: BP 92/60; PULSE 56; RESP 16; TEMP 97.3
--- NOTE | 2021-06-11 12:00 | P.DS ---
Providers Date of admission: 06/08/21 23:15 Expected date of discharge: 06/11/21 Attending physician: Devaughn Marino Consults: 06/08/21 22:52 Consult Physician Routine Consulting Provider: Rick Nix Consult Reason/Comments: Atrial flutter with rvr, sinus bradycardia Do you want consulting provider notified?: Already Contacted 06/09/21 13:23 Consult Physician Routine Consulting Provider: Michael Chicas Consult Reason/Comments: A flutter with RVR Do you want consulting provider notified?: Yes Primary care physician: Devaughn Ned [place] Hospital Course: Discharge diagnosis Atrial flutter with rapid ventricular response Elevated d-dimer with negative computed tomography scan of the chest for pulmonary embolism Underlying history of congenital heart disease Underlying history of liver cirrhosis Underlying history of hypothyroidism Severe noncompliance with medical management Complaint of pelvic pain, computed tomography scan revealing evidence of ascites otherwise no acute abnormality. She will be DC'd on Lasix 20 mg daily Hypothyroidism. TSH elevated at 12.5 patient started on 25 mg of Synthroid Hospital course Asuncion Rizzo, is a 40-year-old female with known history of congenital heart disease who presented to [facility] emergency room with a chief complaint of chest pain and palpitation She was evaluated in the emergency room vital examination on presentation revealed a temperature of 97.6 pulse 158 respiration 20 pressure 102/79 pulse ox 92% on room air, patient was found to be in atrial flutter with rapid ventricular response Laboratory data revealed a white blood count of 6.3 hemoglobin 15.5 platelet count 139 d-dimer 1.54 sodium 136 potassium 3.9 chloride 101 CO2 21 BUN 20 creatinine 0.71 Patient was given a loading dose of Cardizem in emergency room at that time she regained normal sinus rhythm Patient was admitted to medical floor for further evaluation and treatment. Past medical history is significant for congenital heart disease, with history of cardiac surgery in infancy, history of hypothyroidism, previous history of cardiac arrhythmia, history of liver cirrhosis was history of ascites requiring paracentesis in the past, and history of severe noncompliance with medical management patient is supposed to be on multiple medications which she has not b een taking. On 06/10/2021 patient was seen and examined on the medical floor she is alert and oriented 3 in no apparent distress she is complaining of abdominal and pelvic pain otherwise she denies any complaints at this time there is no fever or chills no headache or dizziness no chest pain no shortness of breath no cough no nausea or vomiting no diarrhea no blood in stools no burning with urination no frequency or urgency no hematuria. Computed tomography scan of the abdomen and pelvis reveals evidence of ascites. Otherwise no acute abnormality, at this time will give IV Lasix, and monitor improvement if better and no sign of any infection possible discharge to home in the next 1-2 days. Patient was counseled in length again today in regard to taking medications at home to prevent decline in her health and readmission to the hospital. On 06/11/2021 patient is alert and oriented 3. Patient denies chest pain or shortness of breath. Patient denies nausea vomiting or diarrhea. Patient denies any urinary burning or frequency. All medications sent to pharmacy. Patient again educated on the importance of complete medication compliance. Patient verbalized understanding. At this time patient states she is eager to be discharged home. Patient to follow-up with PCP and cardiology services Patient Condition at Discharge: Stable Plan - Discharge Summary New Discharge Prescriptions: New Apixaban [Eliquis] 5 mg PO BID #60 tab Furosemide [Lasix] 20 mg PO DAILY 30 Days #30 tab Levothyroxine Sodium [Synthroid] 25 mcg PO DAILY@30 30 Days #30 tab Continue Nitroglycerin Sl Tabs [Nitrostat] 0.4 mg SUBLINGUAL Q5M PRN tab PRN Reason: Chest Pain Metoprolol Tartrate [Lopressor] 12.5 mg PO HS 30 Days #30 tab Metoprolol Tartrate 25 mg PO DAILY 30 Days #30 tab Ibuprofen [Motrin] 800 mg PO Q8H PRN PRN Reason: Pain Or Fever > 100.5 Discharge Medication List Nitroglycerin Sl Tabs [Nitrostat] 0.4 mg SUBLINGUAL Q5M PRN tab 12/28/20 [Rx] Ibuprofen [Motrin] 800 mg PO Q8H PRN 06/08/21 [History] Apixaban [Eliquis] 5 mg PO BID #60 tab 06/09/21 [Rx] Furosemide [Lasix] 20 mg PO DAILY 30 Days #30 tab 06/11/21 [Rx] Levothyroxine Sodium [Synthroid] 25 mcg PO DAILY@0630 30 Days #30 tab 06/11/21 [Rx] Metoprolol Tartrate 25 mg PO DAILY 30 Days #30 tab 06/11/21 [Rx] Metoprolol Tartrate [Lopressor] 12.5 mg PO HS 30 Days #30 tab 06/11/21 [Rx] Follow up Appointment(s)/Referral(s): Devaughn Marino MD [Primary Care Provider] - 1-2 days Rick Nix MD [STAFF PHYSICIAN] - 1 Week Discharge Disposition: HOME SELF-CARE
--- NOTE | 2021-06-11 13:42 | P.PN ---
Subjective Progress Note Date: 06/11/21 HISTORY OF PRESENT ILLNESS: This is a 40-year-old female with a past medical history significant for atrial flutter, congenital heart defect with surgery at age 7, and enlarged liver. Patient used to follow in office with Dr. Nix but has not been seen in the office since 2014. Patient also reports she used to follow with a congenital salon customer experience specialist at [facility] but no longer follows with him since he retired. We have been asked to see the patient in consultation for atrial flutter. Patient examined at the bedside. Patient presented to the hospital secondary to a chief complaint of chest pain and palpitations. Patient also reports feeling dizzy when she was feeling her palpitations. Patient denies any loss of consciousness at home. Patient states she was not taking her metoprolol regularly at home because she is trying to get and she was not sure if this would be safe to continue taking. The patient was found to be in a flutter with RVR on presentation to the hospital. Patient was started on IV Cardizem. She subsequently converted to sinus mechanism and then became bradycardic with heart rate in the 30s. Her Cardizem was discontinued. At the time of my examination patient remains in sinus rhythm with a heart rate in the 50s. She c urrently denies chest pain or pressure. Denies shortness of breath. Denies palpitations. EKG reveals a flutter with RVR. Repeat EKG reveals sinus bradycardia with a heart rate in the 30s. Chest CTA: No evidence of pulmonary embolism. Laboratory data: WBC 5.1. Hemoglobin 13.7. Platelet count 119. D-dimer 1.54. Sodium 135. Potassium 4.3. BUN 17. Creatinine 0.61. Magnesium 1.8. Troponin 0.012. 0.037. 0.029. Current home cardiac medications include metoprolol tartrate 25 mg in the mor tiffanie and 12.5 mg at night Most recent echocardiogram obtained in December 2020 revealed ejection fraction 50- 55%, mild mitral regurgitation, and mild aortic regurgitation. 06/10/2021 Patient examined this morning at the bedside. Patient denies chest pain or pressure. She denies shortness of breath. Telemetry reveals sinus bradycardia. She complains of abdominal pain and distention. She is scheduled for CT abdomen and pelvis today. Echocardiogram completed revealing ejection fraction 50-55%, mild aortic regurgitation, and mild mitral regurgitation. 06/11/2021 Patient examined this morning at the bedside. She denies chest pain or pressure. Denies shortness of breath. She remains in sinus mechanism. Vital signs are stable. She is anticipating discharge home today PHYSICAL EXAM: VITAL SIGNS: Reviewed. GENERAL: Well-developed in no acute distress. HEENT: Head is normocephalic. Pupils are equal, round. Sclerae anicteric. Mucous membranes of the mouth are moist. Neck supple. No JVD or thyromegaly LUNGS: Respirations even and unlabored. Lungs essentially clear to auscultation bilaterally. HEART: Regular rate and rhythm. S1 and S2 heard. EXTREMITIES: Normal range of motion. No clubbing or cyanosis. Peripheral pulses intact. No lower extremity edema ASSESSMENT: Palpitations Paroxysmal atypical atrial flutter with RVR Sinus bradycardia following administration of IV Cardizem History of Fontan procedure Medical noncompliance PLAN: Current cardiac medications including metoprolol Continue anticoagulation with Eliquis Recommend patient follow up with a congenital salon customer experience specialist post discharge She is stable for discharge home today from a cardiac standpoint Nurse practitioner note has been reviewed by physician. Signing provider agrees with the documented findings, assessment, and plan of care. Objective - Vital Signs Vital signs: Vital Signs Temp 97.3 F L 06/11/21 08:00 Pulse 56 L 06/11/21 08:00 Resp 16 06/11/21 08:00 BP 92/60 06/11/21 08:00 Pulse Ox 96 06/11/21 08:00 Intake & Output 06/10/21 06/11/21 06/11/21 18:59 06:59 18:59 Intake Total 240 0 Output Total 300 1100 500 Balance -60 -1100 -500 Weight 57.4 kg Intake: Oral 240 0 Output: Urine 300 1100 500 Other: Voiding Method Toilet Toilet - Labs CBC & Chem 7: 06/11/21 07:23 06/11/21 07:23 Labs: Abnormal Lab Results - Last 24 Hours (Table) 06/11/21 Range/Units 07:23 Plt Count 132 L (150-450) k/uL Lymphocytes # 0.5 L (1.0-4.8) k/uL
[2021-06-12] MEDS ORDERED: FUROSEMIDE 20 MG TAB PO SCH (09:00)
== END 2021-06-11 14:32 | disposition home or self-care (01) | DRG 309 ==
LOC: EC 19:41 → 3SCARD 23:15
PROVIDERS: ADMIT Internal Medicine; ATTEND Internal Medicine
DX: I48.4 Atypical atrial flutter (principal); R18.8 Other ascites; E03.9 Hypothyroidism, unspecified; J45.909 Unspecified asthma, uncomplicated; K74.60 Unspecified cirrhosis of liver; Z20.822 Contact with and (suspected) exposure to COVID-19; Z79.01 Long term (current) use of anticoagulants; Z79.899 Other long term (current) drug therapy; Z98.890 Other specified postprocedural states; Z91.14 Patient's other noncompliance with medication regimen; Z95.1 Presence of aortocoronary bypass graft; Z88.8 Allergy status to other drugs, medicaments and biological substances; Z91.018 Allergy to other foods; Z80.3 Family history of malignant neoplasm of breast; Z82.49 Family history of ischemic heart disease and other diseases of the circulatory system; Z82.5 Family history of asthma and other chronic lower respiratory diseases
CPT/HCPCS: 36415; 71275; 74177; 80048; 80053; 81001; 83735; 84439; 84443; 84484; 84703; 85025; 85379; 85610; 85730; 87635; 93005; 93308; 96361; 96374; 96375; 96376; 99291

== ENCOUNTER 2021-06-17 11:10 | Emergency (ER) | payer OTHER ==
[2021-06-17 12:00] VITALS: BP 99/69; PULSE 60; RESP 18; TEMP 97.5
[2021-06-17] MEDS ORDERED: ACETAMINOPHEN TAB 500 MG TAB PO STA (12:09)
[2021-06-17] MEDS ORDERED: ONDANSETRON ODT 4 MG TAB PO STA (12:09)
--- NOTE | 2021-06-17 12:18 | ED ---
General Adult HPI - General Chief complaint: Headache Stated complaint: Covid exposure/symptoms Time Seen by Provider: 06/17/21 12:01 Source: patient, RN notes reviewed Mode of arrival: ambulatory - History of Present Illness Initial comments: Patient states that she's been sick for the last 6 days. Patient does admit to cough, congestion, bodyaches, chills. Patient does admit that her mother has similar symptoms at home. Patient does admit symptoms of nausea, diarrhea. Patient denies any other complaints or any other symptoms at this time. Patient denies chest pain, back pain, abdominal pain, nausea or vomiting, numbness or tingling, headaches or visual changes, or any other complaints. - Related Data Home Medications Medication Instructions Recorded Confirmed Ibuprofen [Motrin] 800 mg PO Q8H PRN 06/08/21 06/08/21 Previous Rx's Medication Instructions Recorded Nitroglycerin Sl Tabs [Nitrostat] 0.4 mg SUBLINGUAL Q5M PRN tab 12/28/20 Apixaban [Eliquis] 5 mg PO BID #60 tab 06/09/21 Furosemide [Lasix] 20 mg PO DAILY 30 Days #30 tab 06/11/21 Levothyroxine Sodium [Synthroid] 25 mcg PO DAILY@0630 30 Days #30 06/11/21 tab Metoprolol Tartrate 25 mg PO DAILY 30 Days #30 tab 06/11/21 Metoprolol Tartrate [Lopressor] 12.5 mg PO HS 30 Days #30 tab 06/11/21 Allergies Allergy/AdvReac Type Severity Reaction Status Date / Time warfarin sodium Allergy Anaphylaxis Verified 06/08/21 21:05 [From Coumadin] peas AdvReac Diarrhea Verified 06/08/21 21:05 Review of Systems ROS Statement: Those systems with pertinent positive or pertinent negative responses have been documented in the HPI. ROS Other: All systems not noted in ROS Statement are negative. 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 7, Past Anesthesia/Blood Transfusion Reactions: Previous Problems w/ Anesthesia Additional Past Anesthesia/Blood Transfusion Reaction / Comment(s): Patient states she is allergic to anesthesia during 2018 heart cath -- had numbness in right face and left hand, states anesthesiologists indicated if next procedure, would have to be adjusted Past Psychological History: No Psychological Hx Reported Smoking Status: Never smoker Past Alcohol Use History: None Reported Past Drug Use History: None Reported - Past Family History Mother Family Medical History: Asthma, Cancer, Hyperlipidemia, Hypertension Additional Family Medical History / Comment(s): Mother had breast CA at age 52 Brother(s) Family Medical History: Asthma Father Family Medical History: Asthma Course Vital Signs 06/17/21 11:57 Temperature 97.5 F L Pulse Rate 60 Respiratory 18 Rate Blood Pressure 99/69 O2 Sat by Pulse 95 Oximetry Medical Decision Making - Medical Decision Making Patient's cover test was positive here the emergency room. Patient's pulse ox remained stable. Does not meet requirement for myocardial antibiotic infusion. Patient will be discharged home advised continue self isolating to return to emergency room symptoms increase worsen or for any other concerns. - Lab Data Lab Results 06/17/21 Range/Units 12:27 Coronavirus (PCR) Detected A (Not Detectd) Disposition Clinical Impression: COVID-19 Disposition: HOME SELF-CARE Condition: Good Instructions (If sedation given, give patient instructions): Coronavirus Disease 2019 (COVID-19) Is patient prescribed a controlled substance at d/c from ED?: No Referrals: Devaughn Marino MD [Primary Care Provider] - 1-2 days Time of Disposition: 13:04
== END 2021-06-17 13:59 | disposition home or self-care (01) ==
LOC: EC 11:10
DX: U07.1 COVID-19 (principal); J45.909 Unspecified asthma, uncomplicated; Z88.8 Allergy status to other drugs, medicaments and biological substances; Z91.018 Allergy to other foods
CPT/HCPCS: 87635; 99284

== ENCOUNTER → 2021-11-18 | Outpatient (CLI) | payer OTHER ==
[2021-11-18 14:26] LABS: HCT 47.7 % (37.2-46.3); HGB 15.6 g/dL (12.0-15.0); MCH 27.5 pg (27.0-32.0); MCHC 32.7 g/dL (32.0-37.0); MCV 84.1 fL (80.0-97.0); Mean Platelet Volume 11.8 fL (9.5-12.2); NRBC Per 100 WBC 0 /100 WBCS (0.0-0.0); Platelet Count 144 X 10*3/uL (140-440); RBC 5.67 X 10*6/uL (4.10-5.20); RDW 14.2 % (11.5-14.5); WBC 4.27 X 10*3/uL (4.50-10.00)
[2021-11-18 14:45] LABS: Albumin 4.9 g/dL (3.8-4.9); Albumin/Globulin Ratio 1.44 (1.60-3.17); Anion Gap 11.3 mmol/L (10.00-18.00); BUN/Creat Ratio 18.22 Ratio (12.00-20.00); Blood Urea Nitrogen 16.4 mg/dL (9.0-27.0); Calcium 9.6 mg/dL (8.7-10.3); Carbon Dioxide 23.7 mmol/L (20.0-27.5); Globulin 3.4 g/dL (1.6-3.3); Non-African American GFR(CKD) 79.4 (60.0-200.0); Potassium 4.5 mmol/L (3.5-5.5); Total Bilirubin 1.2 mg/dL (0.30-1.20); Total Protein 8.3 g/dL (6.2-8.2)
[2021-11-18 15:11] LABS: INR 1.11 (0.90-1.11); Prothrombin Time 12.1 sec (9.9-11.9)
--- NOTE | 2021-11-18 18:50 | US ---
EXAMINATION TYPE: US abdomen complete DATE OF EXAM: 11/18/2021 COMPARISON: CT 06/10/2021 CLINICAL HISTORY: 41-year-old female R14.0 Abdominal distension (gaseous). TECHNIQUE: Multiple sonographic images of the abdomen are obtained. FINDINGS: EXAM MEASUREMENTS: Liver Length: 13.5 cm Gallbladder Wall: 0.29 cm CBD: 0.28 cm Spleen: 15.1 cm Right Kidney: 9.1 x 4.9 x 4.3 cm Left Kidney: 9.3 x 3.9 x 4.6 cm Babcock Tester notes: Limited due to gas. Pancreas: Small portion of the pancreatic body is seen. The head and tail are secured by bowel gas s hadowing. The Liver: Relatively homogeneous appearance. No focal lesion. Gallbladder: Fold seen. Wall measures upper limits of normal. Evidence for sonographic Quevedo's sign: No CBD: Portions seen appear wnl Spleen: Mildly enlarged. Right Kidney: No hydronephrosis or masses seen Left Kidney: No hydronephrosis or masses seen Upper IVC: Appears wnl Abd Aorta: Distal and iliacs are obscured. Mild to moderate ascites is visualized in the midline epigastric area, RUQ, RLQ, LUQ, and LLQ. IMPRESSION: 1. Mild to moderate ascites fluid. Correlate as to etiology. 2. No gallstones or biliary ductal dilatation. 3. Mild splenomegaly at 15.1 cm.
== END | disposition home or self-care (01) ==
LOC: RADUSWWP 10:36
PROVIDERS: ATTEND Internal Medicine Gastroenterology
DX: R18.8 Other ascites (principal); R16.1 Splenomegaly, not elsewhere classified
CPT/HCPCS: 76700; 80053; 82105; 85027; 85610

== ENCOUNTER 2022-03-01 11:57 | Emergency (ER) | payer OTHER ==
[2022-03-01 12:05] VITALS: TEMP 98
--- NOTE | 2022-03-01 13:02 | ED ---
Recheck HPI - General Chief Complaint: Recheck/Abnormal Lab/Rx Stated Complaint: covid test Time Seen by Provider: 03/01/22 12:09 Source: patient, family, RN notes reviewed Mode of arrival: ambulatory Limitations: no limitations - History of Present Illness Initial Comments: This is a 41-year-old female who presents to the emergency department requesting a COVID test. States that over the last 1-2 days, she has had a few family members test positive. Currently complains of some nausea and body aches. Currently denies any other symptoms. Patient is not vaccinated against COVID-19. Denies any fevers, chills, sore throat, cough, dyspnea, chest pain, palpitations, abdominal pain, nausea, vomiting, diarrhea, or headaches. MD Complaint: other (requests a COVID test. ) - Related Data Home Medications Medication Instructions Recorded Confirmed Ibuprofen [Motrin] 800 mg PO Q8H PRN 06/08/21 06/08/21 Previous Rx's Medication Instructions Recorded Nitroglycerin Sl Tabs [Nitrostat] 0.4 mg SUBLINGUAL Q5M PRN tab 12/28/20 Apixaban [Eliquis] 5 mg PO BID #60 tab 06/09/21 Furosemide [Lasix] 20 mg PO DAILY 30 Days #30 tab 06/11/21 Levothyroxine Sodium [Synthroid] 25 mcg PO DAILY@0630 30 Days #30 06/11/21 tab Metoprolol Tartrate 25 mg PO DAILY 30 Days #30 tab 06/11/21 Metoprolol Tartrate [Lopressor] 12.5 mg PO HS 30 Days #30 tab 06/11/21 Nirmatrelvir/Ritonavir [Paxlovid 1 each PO BID 5 Days #10 tab 03/01/22 2X150 mg-100 mg (Eua)] Ondansetron Odt [Zofran Odt] 4 mg PO Q8HR PRN #20 tab 03/01/22 Allergies Allergy/AdvReac Type Severity Reaction Status Date / Time warfarin sodium Allergy Anaphylaxis Verified 03/01/22 12:05 [From Coumadin] peas AdvReac Diarrhea Verified 03/01/22 12:05 Review of Systems ROS Statement: Those systems with pertinent positive or pertinent negative responses have been documented in the HPI. ROS Other: All systems not noted in ROS Statement are negative. 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 7, Past Anesthesia/Blood Transfusion Reactions: Previous Problems w/ Anesthesia Additional Past Anesthesia/Blood Transfusion Reaction / Comment(s): Patient states she is allergic to anesthesia during 2018 heart cath -- had numbness in right face and left hand, states anesthesiologists indicated if next procedure, would have to be adjusted Past Psychological History: No Psychological Hx Reported Smoking Status: Never smoker Past Alcohol Use History: None Reported Past Drug Use History: None Reported - Past Family History Mother Family Medical History: Asthma, Cancer, Hyperlipidemia, Hypertension Additional Family Medical History / Comment(s): Mother had breast CA at age 52 Brother(s) Family Medical History: Asthma Father Family Medical History: Asthma General Exam Limitations: no limitations General appearance: alert, in no apparent distress Head exam: Present: atraumatic, normocephalic, normal inspection Respiratory exam: Present: normal lung sounds bilaterally. Absent: respiratory distress, wheezes, rales, rhonchi, stridor Cardiovascular Exam: Present: regular rate, normal rhythm, normal heart sounds. Absent: systolic murmur, diastolic murmur, rubs, gallop, clicks Neurological exam: Present: alert, oriented X3, CN II-XII intact Psychiatric exam: Present: normal affect, normal mood Skin exam: Present: warm, dry, intact, normal color. Absent: rash Course Vital Signs 03/01/22 03/01/22 03/01/22 12:03 12:16 13:16 Temperature 98.0 F 98.0 F Pulse Rate 90 87 Respiratory 18 16 20 Rate Blood Pressure 120/79 118/80 O2 Sat by Pulse 97 98 Oximetry Medical Decision Making - Medical Decision Making This is a 41-year-old female who presents to the emergency department for a COVID test. Patient positive for COVID-19. Prescription for Paxlovid and Zofran provided. She is instructed to quarantine for 5 days and practice extra precautions for an additional 5 days, including always wearing a mask around others and avoiding travel. Advised that she continue with supportive care, such as taking ibuprofen and Tylenol as needed for pain relief. Return precautions reviewed in depth, the patient is instructed to return to the emergency department with any new, worsening, or concerning symptoms. Patient verbalized understanding. This case was discussed in detail with the attending ED physician. Presentation, findings, and treatment plan discussed in detail as well. - Lab Data Lab Results 03/01/22 Range/Units 12:00 Coronavirus (PCR) Detected A (Not Detectd) Disposition Clinical Impression: COVID-19 Disposition: HOME SELF-CARE Instructions (If sedation given, give patient instructions): COVID-19 (Coronavirus Disease 2019) (ED), How to Recover from COVID-19 at Home (ED) Additional Instructions: Return to the emergency department with any new, worsening, or concerning symptoms. Take the Paxlovid as prescribed for 5 days. Make sure that you quarantine for 5 days and practice extra precautions for an additional 5 days, including always wearing a mask around others and avoiding travel. Continue with symptomatic management, such as ibuprofen and Tylenol as needed for pain relief or fevers. The Zofran can be taken up to every 8 hours as needed for nausea and vomiting. Prescriptions: Nirmatrelvir/Ritonavir [Paxlovid 2X150 mg-100 mg (Eua)] 1 each PO BID 5 Days #10 tab Ondansetron Odt [Zofran Odt] 4 mg PO Q8HR PRN #20 tab PRN Reason: Nausea And Vomiting Is patient prescribed a controlled substance at d/c from ED?: No Referrals: Devaughn Marino MD [Primary Care Provider] - 1-2 days
[2022-03-01 13:17] VITALS: BP 118/80; PULSE 87; RESP 20
== END 2022-03-01 13:16 | disposition home or self-care (01) ==
LOC: EC 11:57 → EEVIPCON 11:57 → EC 13:16
DX: U07.1 COVID-19 (principal); I48.92 Unspecified atrial flutter; J45.909 Unspecified asthma, uncomplicated; E07.9 Disorder of thyroid, unspecified; Z79.890 Hormone replacement therapy; Z79.01 Long term (current) use of anticoagulants; Z88.8 Allergy status to other drugs, medicaments and biological substances; Z88.3 Allergy status to other anti-infective agents
CPT/HCPCS: 87635; 99283; 99284

== ENCOUNTER 2022-06-27 15:13 | Emergency (ER) | payer OTHER ==
--- NOTE | 2022-06-27 16:05 | ED ---
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 The patient stated this chest pain began in the central chest and was present since 10:30 last night. The patient stated that his chest pain does not radiate and does not cause her to have any nausea, vomiting or diaphoresis. The patient continued to remain stable on my evaluation but stated that her pain was continuous since yesterday so she came to the emergency department for evaluation. The patient stated that she did have a past medical history including atrial flutter however she stated that she did not feel palpitations. The patient denied any other acute pain or complaints at this time and was re sting in bed comfortably. The patient denied any fevers, chills as well as any nausea and vomiting. - Related Data Home Medications Medication Instructions Recorded Confirmed Ibuprofen [Motrin] 800 mg PO Q8H PRN 06/08/21 06/08/21 Previous Rx's Medication Instructions Recorded Nitroglycerin Sl Tabs [Nitrostat] 0.4 mg SUBLINGUAL Q5M PRN tab 12/28/20 Apixaban [Eliquis] 5 mg PO BID #60 tab 06/09/21 Furosemide [Lasix] 20 mg PO DAILY 30 Days #30 tab 06/11/21 Levothyroxine Sodium [Synthroid] 25 mcg PO DAILY@0630 30 Days #30 06/11/21 tab Metoprolol Tartrate 25 mg PO DAILY 30 Days #30 tab 06/11/21 Metoprolol Tartrate [Lopressor] 12.5 mg PO HS 30 Days #30 tab 06/11/21 Nirmatrelvir/Ritonavir [Paxlovid 1 each PO BID 5 Days #10 tab 03/01/22 2X150 mg-100 mg (Eua)] Ondansetron Odt [Zofran Odt] 4 mg PO Q8HR PRN #20 tab 03/01/22 Allergies Allergy/AdvReac Type Severity Reaction Status Date / Time warfarin sodium Allergy Anaphylaxis Verified 06/27/22 15:18 [From Coumadin] peas AdvReac Diarrhea Verified 06/27/22 15:18 Review of Systems ROS Statement: Those systems with pertinent positive or pertinent negative responses have been documented in the HPI. ROS Other: All systems not noted in ROS Statement are negative. 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 7, Past Anesthesia/Blood Transfusion Reactions: Previous Problems w/ Anesthesia Additional Past Anesthesia/Blood Transfusion Reaction / Comment(s): Patient states she is allergic to anesthesia during 2018 heart cath -- had numbness in right face and left hand, states anesthesiologists indicated if next procedure, would have to be adjusted Past Psychological History: No Psychological Hx Reported Smoking Status: Never smoker Past Alcohol Use History: None Reported Past Drug Use History: None Reported - Past Family History Mother Family Medical History: Asthma, Cancer, Hyperlipidemia, Hypertension Additional Family Medical History / Comment(s): Mother had breast CA at age 52 Brother(s) Family Medical History: Asthma Father Family Medical History: Asthma General Exam Limitations: no limitations General appearance: alert, in no apparent distress Head exam: Present: atraumatic, normocephalic Eye exam: Present: normal appearance, PERRL Pupils: Present: normal accommodation ENT exam: Present: normal exam, normal oropharynx, mucous membranes moist Neck exam: Present: normal inspection, full ROM Respiratory exam: Present: normal lung sounds bilaterally, other (Minor tenderness to palpation noted over the midline sternal surgical incision) Cardiovascular Exam: Present: regular rate, normal rhythm, normal heart sounds GI/Abdominal exam: Present: soft, distended (Distended at baseline as the patient is reportedly supposed to receive a paracentesis since October), normal bowel sounds Extremities exam: Present: normal inspection, full ROM, normal capillary refill Back exam: Present: normal inspection, full ROM Neurological exam: Present: alert, oriented X3, CN II-XII intact Psychiatric exam: Present: normal affect, normal mood Skin exam: Present: warm, dry Course Vital Signs 06/27/22 15:15 Temperature 97.3 F L Pulse Rate 89 Respiratory 16 Rate Blood Pressure 92/61 O2 Sat by Pulse 96 Oximetry EKG Findings - EKG Comments: EKG Findings:: EKG was obtained and was interpreted by myself. EKG showed a rate of 72, when necessary we'll 118, QR protestant of 104 and QTC of 418. This EKG showed a reported junctional rhythm with occasional PVCs. There was however no ST segment elevation or depression noted. Medical Decision Making - Medical Decision Making Was pt. sent in by a medical professional or institution? @ -No Did you speak to anyone other than the patient for history? @ -No Did you review nursing and triage notes? @ -Nursing triage notes were reviewed Were old charts reviewed? @ -No Differential Diagnosis? @ -Acute coronary syndrome, atypical chest pain, chest wall strain, GERD EKG interpreted by me (3pts min.)? @ -Above X-rays interpreted by me (1pt min.)? @ -Chest x-ray was obtained and was interpreted by myself showing borderline cardiomegaly. There was no acute lung disease. No changes Exam. CT interpreted by me (1pt min.)? @ -[none] U/S interpreted by me (1pt. min.)? @ -[none] What testing was considered but not performed? (CT, X-rays, U/S, labs)? Why? @Computed tomography scan was considered however the patient did not complain of any significant chest pain or shortness of breath. X-ray did not show any pathology therefore no further computed tomography scan was obtained at this time. What meds were considered but not given? Why? @ -[none] Did you discuss the management of the patient with other professionals? @ -No Did you reconcile home meds? @ -[none] Was smoking cessation discussed for >3mins.? @ -[none] Was critical care preformed (if so, how long)? @ -[none] Were there social determinants of health that impacted care today? How? (Homelessness, low income, unemployed, alcoholism, drug addiction, transportation, low edu. Level, literacy, decrease access to med. care, retirement, rehab)? @ -None Was there de-escalation of care discussed even if they declined? (Discuss DNR or withdrawal of care, Hospice)? @ -No What co-morbidities impacted this encounter? (DM, HTN, Smoking, COPD, CAD, Cancer, CVA, Hep., AIDS, mental health diagnosis, sleep apnea, morbid obesity)? @ -Previous transposition of the great vessels, not alcoholic fatty liver disease Was patient admitted / discharged? @ -The patient was seen and evaluated in the emergency department. Physical exam, the patient was resting in bed without any acute distress. Vital signs admission were stable. Due to the nature the patient's complaints, laboratory workup was obtained. Chest x-ray was obtained as well. All laboratory workup was within normal limits and chest x-ray was negative per the above note. The patient on reevaluation stated that her symptoms were completely resolved that she did not have any further chest pain and was stable for discharge home. The patient was advised to follow-up with her clerical order filler for further workup and evaluation. The patient was also advised report back to the emergency department if his pain became acutely worse. The patient was agreeable to this and was discharged home in stable condition with her fiance Undiagnosed new problem with uncertain prognosis? @ -[none] Drug Therapy requiring intensive monitoring for toxicity (Heparin, Nitro, Insulin, Cardizem)? @ -[none] Were any procedures done? @ -[none] Diagnosis/symptom? @ -Atypical chest pain Acute, or Chronic, or Acute on Chronic? @ -Acute on chronic Uncomplicated (without systemic symptoms) or Complicated (systemic symptoms)? @ -Uncomplicated Side effects of treatment? @ -[none] Exacerbation, Progression, or Severe Exacerbation] @ -[no] Poses a threat to life or bodily function? @ -[no] - Lab Data Result diagrams: 06/27/22 17:40 06/27/22 17:40 Lab Results 06/27/22 06/27/22 06/27/22 Range/Units 16:10 16:10 17:40 WBC 5.9 (3.8-10.6) k/uL RBC 5.49 H (3.80-5.40) m/uL Hgb 15.1 (11.4-16.0) gm/dL Hct 46.5 H (34.0-46.0) % MCV 84.8 (80.0-100.0) fL MCH 27.6 (25.0-35.0) pg MCHC 32.5 (31.0-37.0) g/dL RDW 13.5 (11.5-15.5) % Plt Count 132 L (150-450) k/uL MPV 9.6 Neutrophils % 81 % Lymphocytes % 9 % Monocytes % 7 % Eosinophils % 2 % Basophils % 1 % Neutrophils # 4.7 (1.3-7.7) k/uL Lymphocytes # 0.5 L (1.0-4.8) k/uL Monocytes # 0.4 (0-1.0) k/uL Eosinophils # 0.1 (0-0.7) k/uL Basophils # 0.1 (0-0.2) k/uL Sodium (137-145) mmol/L Potassium (3.5-5.1) mmol/L Chloride (98-107) mmol/L Carbon Dioxide (22-30) mmol/L Anion Gap mmol/L BUN (7-17) mg/dL Creatinine (0.52-1.04) mg/dL Est GFR (CKD-EPI)AfAm (>60 ml/min/1.73 sqM) Est GFR (CKD-EPI)NonAf (>60 ml/min/1.73 sqM) Glucose (74-99) mg/dL Calcium (8.4-10.2) mg/dL Magnesium (1.6-2.3) mg/dL Total Bilirubin (0.2-1.3) mg/dL AST (14-36) U/L ALT (4-34) U/L Alkaline Phosphatase (38-126) U/L Troponin I (0.000-0.034) ng/mL Total Protein (6.3-8.2) g/dL Albumin (3.5-5.0) g/dL Urine Color Yellow Urine Appearance Clear (Clear) Urine pH 8.0 (5.0-8.0) Ur Specific [place] 1.020 (1.001-1.035) Urine Protein 2+ H (Negative) Urine Glucose (UA) Negative (Negative) Urine Ketones Negative (Negative) Urine Blood Negative (Negative) Urine Nitrite Negative (Negative) Urine Bilirubin Negative (Negative) Urine Urobilinogen <2.0 (<2.0) mg/dL Ur Leukocyte Esterase Negative (Negative) Urine RBC 2 (0-5) /hpf Urine WBC 1 (0-5) /hpf Ur Squamous Epith Cells 2 (0-4) /hpf Urine Mucus Rare H (None) /hpf Urine HCG, Qual Not Detected (Not Detectd) 06/27/22 06/27/22 Range/Units 17:40 17:40 WBC (3.8-10.6) k/uL RBC (3.80-5.40) m/uL Hgb (11.4-16.0) gm/dL Hct (34.0-46.0) % MCV (80.0-100.0) fL MCH (25.0-35.0) pg MCHC (31.0-37.0) g/dL RDW (11.5-15.5) % Plt Count (150-450) k/uL MPV Neutrophils % % Lymphocytes % % Monocytes % % Eosinophils % % Basophils % % Neutrophils # (1.3-7.7) k/uL Lymphocytes # (1.0-4.8) k/uL Monocytes # (0-1.0) k/uL Eosinophils # (0-0.7) k/uL Basophils # (0-0.2) k/uL Sodium 140 (137-145) mmol/L Potassium 4.4 (3.5-5.1) mmol/L Chloride 104 (98-107) mmol/L Carbon Dioxide 27 (22-30) mmol/L Anion Gap 9 mmol/L BUN 18 H (7-17) mg/dL Creatinine 0.73 (0.52-1.04) mg/dL Est GFR (CKD-EPI)AfAm >90 (>60 ml/min/1.73 sqM) Est GFR (CKD-EPI)NonAf >90 (>60 ml/min/1.73 sqM) Glucose 85 (74-99) mg/dL Calcium 9.6 (8.4-10.2) mg/dL Magnesium 2.2 (1.6-2.3) mg/dL Total Bilirubin 1.3 (0.2-1.3) mg/dL AST 32 (14-36) U/L ALT 19 (4-34) U/L Alkaline Phosphatase 86 (38-126) U/L Troponin I <0.012 (0.000-0.034) ng/mL Total Protein 8.3 H (6.3-8.2) g/dL Albumin 4.6 (3.5-5.0) g/dL Urine Color Urine Appearance (Clear) Urine pH (5.0-8.0) Ur Specific [place] (1.001-1.035) Urine Protein (Negative) Urine Glucose (UA) (Negative) Urine Ketones (Negative) Urine Blood (Negative) Urine Nitrite (Negative) Urine Bilirubin (Negative) Urine Urobilinogen (<2.0) mg/dL Ur Leukocyte Esterase (Negative) Urine RBC (0-5) /hpf Urine WBC (0-5) /hpf Ur Squamous Epith Cells (0-4) /hpf Urine Mucus (None) /hpf Urine HCG, Qual (Not Detectd) Disposition Clinical Impression: Chest pain Disposition: HOME SELF-CARE Condition: Stable Instructions (If sedation given, give patient instructions): Chest Pain (ED) Is patient prescribed a controlled substance at d/c from ED?: No Referrals: Devaughn Marino MD [Primary Care Provider] - 1-2 days Time of Disposition: 18:40
--- NOTE | 2022-06-27 16:29 | XR ---
EXAMINATION TYPE: XR chest 2V DATE OF EXAM: 06/27/2022 COMPARISON: 04/19/2021 HISTORY: Chest pain TECHNIQUE: FINDINGS: Heart is borderline enlarged. There are sternal wires. No heart failure seen. Lungs are candelario ar of infiltrate. The bony thorax is intact. There is slight increased interstitial markings but IMPRESSION: Borderline cardiomegaly. No acute lung disease. There is probably some minimal pulmonary fibrosis. No change compared to old exam.
[2022-06-27 16:38] LABS: Appearance,Urine Clear (Clear); Bilirubin,Urine Negative (Negative); Blood,Urine Negative (Negative); Color,Urine Yellow; Glucose,Urine (UA) Negative (Negative); Ketones,Urine Negative (Negative); Leukocyte Esterase,Urine Negative (Negative); Mucus,Urine Rare /hpf; Nitrite,Urine Negative (Negative); Protein,Urine 2+ (Negative); RBC,Urine 2 /hpf (0-5); Squamous Epithelial Cell,Urine 2 /hpf (0-4); Urobilinogen,Urine <2.0 mg/dL (<2.0); WBC,Urine 1 /hpf (0-5)
[2022-06-27 17:58] LABS: Basophils # (A) 0.1 k/uL (0-0.2); Basophils % (A) 1 %; Eosinophils # (A) 0.1 k/uL (0-0.7); Eosinophils % (A) 2 %; HCT 46.5 % (34.0-46.0); HGB 15.1 gm/dL (11.4-16.0); Lymphocytes # (A) 0.5 k/uL (1.0-4.8); Lymphocytes % (A) 9 %; MCH 27.6 pg (25.0-35.0); MCHC 32.5 g/dL (31.0-37.0); MCV 84.8 fL (80.0-100.0); Mean Platelet Volume 9.6; Monocytes # (A) 0.4 k/uL (0-1.0); Monocytes % (A) 7 %; Neutrophils # (A) 4.7 k/uL (1.3-7.7); Neutrophils % (A) 81 %; Platelet Count 132 k/uL (150-450); RBC 5.49 m/uL (3.80-5.40); RDW 13.5 % (11.5-15.5); WBC 5.9 k/uL (3.8-10.6)
[2022-06-27 18:22] LABS: ALT 19 U/L (4-34); AST 32 U/L (14-36); African American GFR (CKD) >90 (>60 ml/min/1.73 sqM); Albumin 4.6 g/dL (3.5-5.0); Alkaline Phosphatase 86 U/L (38-126); Anion Gap 9 mmol/L; Blood Urea Nitrogen 18 mg/dL (7-17); Calcium 9.6 mg/dL (8.4-10.2); Carbon Dioxide 27 mmol/L (22-30); Chloride 104 mmol/L (98-107); Glucose 85 mg/dL (74-99); Magnesium 2.2 mg/dL (1.6-2.3); Non-African American GFR(CKD) >90 (>60 ml/min/1.73 sqM); Potassium 4.4 mmol/L (3.5-5.1); Sodium 140 mmol/L (137-145); Total Bilirubin 1.3 mg/dL (0.2-1.3); Total Protein 8.3 g/dL (6.3-8.2)
[2022-06-27 19:03] VITALS: BP 109/77; PULSE 69; RESP 17; TEMP 98
== END 2022-06-27 19:00 | disposition home or self-care (01) ==
LOC: EC 15:13
DX: R07.9 Chest pain, unspecified (principal); J45.909 Unspecified asthma, uncomplicated; I51.7 Cardiomegaly; Z88.3 Allergy status to other anti-infective agents; Z91.018 Allergy to other foods
CPT/HCPCS: 36415; 71046; 80053; 81001; 81025; 83735; 84484; 85025; 93005; 99285

== ENCOUNTER 2022-11-04 21:42 | Inpatient (IN) | payer OTHER ==
--- NOTE | 2022-11-04 22:24 | ED ---
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 Pain started around 3 PM this afternoon. Pain in her abdomen is worse when she walks and is better with rest. She did not take any pain medications at home for her symptoms. Denies any urinary complaints. Does admit to some constipation which she took milk of magnesia and this was alleviated. Last menstrual cycle was in June. Patient is concern for at this time. She does admit to abdominal distention times one year. Follows with Dr. Nix. She denies any shortness of breath. Denies taking any anticoagulation at this time as she is "ALLERGIC". She denies any fevers chills or cough. No other alleviating, precipitating or modifying factors (Elizabeth Richard) - Related Data Home Medications Medication Instructions Recorded Confirmed Albuterol Inhaler [Ventolin Hfa 2 puff INHALATION RT-Q6H PRN 11/04/22 11/04/22 Inhaler] Levothyroxine Sodium [Synthroid] 75 mcg PO DAILY 11/04/22 11/04/22 Previous Rx's Medication Instructions Recorded Nitroglycerin Sl Tabs [Nitrostat] 0.4 mg SUBLINGUAL Q5M PRN tab 12/28/20 Apixaban [Eliquis] 5 mg PO BID #60 tab 06/09/21 Furosemide [Lasix] 20 mg PO DAILY 30 Days #30 tab 06/11/21 Metoprolol Tartrate 25 mg PO DAILY 30 Days #30 tab 06/11/21 cefUROXime axetiL [Cefuroxime] 500 mg PO BID 7 Days #14 tab 11/10/22 Allergies Allergy/AdvReac Type Severity Reaction Status Date / Time warfarin sodium Allergy Anaphylaxis Verified 11/04/22 22:36 [From Coumadin] peas AdvReac Diarrhea Verified 11/04/22 22:36 Review of Systems ROS Other: All systems not noted in ROS Statement are negative. <Mono Benitez - Last Filed: 11/05/22 00:51> ROS Other: All systems not noted in ROS Statement are negative. <Elizabeth Richard - Last Filed: 11/14/22 13:09> ROS Statement: Those systems with pertinent positive or pertinent negative responses have been documented in the HPI. 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 7, Past Anesthesia/Blood Transfusion Reactions: Previous Problems w/ Anesthesia Additional Past Anesthesia/Blood Transfusion Reaction / Comment(s): Patient states she is allergic to anesthesia during 2018 heart cath -- had numbness in right face and left hand, states anesthesiologists indicated if next procedure, would have to be adjusted Past Psychological History: No Psychological Hx Reported Smoking Status: Never smoker Past Alcohol Use History: None Reported Past Drug Use History: None Reported - Past Family History Mother Family Medical History: Asthma, Cancer, Hyperlipidemia, Hypertension Additional Family Medical History / Comment(s): Mother had breast CA at age 52 Brother(s) Family Medical History: Asthma Father Family Medical History: Asthma <Elizabeth Richard - Last Filed: 11/14/22 13:09> General Exam Limitations: no limitations General appearance: alert, in no apparent distress Head exam: Present: atraumatic, normocephalic, normal inspection Eye exam: Present: normal appearance, PERRL, EOMI. Absent: scleral icterus, conjunctival injection, periorbital swelling ENT exam: Present: normal exam, mucous membranes moist Neck exam: Present: normal inspection. Absent: tenderness, meningismus, lymphadenopathy Respiratory exam: Present: normal lung sounds bilaterally. Absent: respiratory distress, wheezes, rales, rhonchi, stridor Cardiovascular Exam: Present: regular rate, normal rhythm, normal heart sounds. Absent: systolic murmur, diastolic murmur, rubs, gallop, clicks GI/Abdominal exam: Present: soft, distended (No peritoneal signs), tenderness (Left lower quadrant), normal bowel sounds. Absent: guarding, rebound, rigid Extremities exam: Present: normal inspection, full ROM, normal capillary refill. Absent: tenderness, pedal edema, joint swelling, calf tenderness Back exam: Present: normal inspection Neurological exam: Present: alert, oriented X3, CN II-XII intact Psychiatric exam: Present: normal affect, normal mood Skin exam: Present: warm, dry, intact, normal color. Absent: rash <Elizabeth Richard - Last Filed: 11/14/22 13:09> Course Vital Signs 11/04/22 11/04/22 11/05/22 21:43 23:21 01:00 Temperature 97.5 F L 97.9 F Pulse Rate 74 58 L 59 L Respiratory 16 18 18 Rate Blood Pressure 135/85 85/62 116/78 O2 Sat by Pulse 98 98 97 Oximetry EKG Findings - EKG Comments: EKG Findings:: EKG demonstrates sinus rhythm with a rate of 63. IA interval 98. QRS 89. QTC 381. No acute ST segment elevations or depressions <Elizabeth Richard - Last Filed: 11/14/22 13:09> Medical Decision Making - Lab Data Result diagrams: 11/04/22 20:45 11/04/22 20:45 <Mono Benitez - Last Filed: 11/05/22 00:51> - Lab Data Result diagrams: 11/09/22 05:30 11/09/22 05:30 <Elizabeth Richard - Last Filed: 11/14/22 13:09> - Medical Decision Making Patient is signed out to me by previous shift physician, Dr. Richard. Briefly, patient is a 42-year-old female past medical history of liver cirrhosis presents with chest and abdominal pain. Patient has diffuse abdominal tenderness on physical examination. She does not have a surgical abdomen. Plan at sign out was followed and imaging studies. Chest x-ray is negative. Computed tomography scan shows inflammation around the bowel suspicious for spontaneous bacterial p eritonitis. Patient started ceftriaxone. Will be admitted with consultation to infectious disease. (Mono Benitez) Was pt. sent in by a medical professional or institution ([facility], [facility], urgent care, hospital, or half-way...) When possible be specific @ -No Did you speak to anyone other than the patient for history (EMS, parent, family, police, friend...)? What history was obtained from this source @ -No Did you review nursing and triage notes (agree or disagree)? Why? @ -I reviewed and agree with nursing and triage notes Were old charts reviewed (outside hosp., previous admission, EMS record, old EKG, old radiological studies, urgent care reports/EKG's, half-way records)? Report findings @ -Old charts were reviewed as the patient has been seen multiple times in the past for similar complaint of chest pain Differential Diagnosis (chest pain, altered mental status, abdominal pain women, abdominal pain men, vaginal bleeding, weakness, fever, dyspnea, syncope, headache, dizziness, GI bleed, back pain, seizure, CVA, palpatations, mental health, musculoskeletal)? @ -Differential Abdominal Pain Women: Appendicitis, Cholecystitis, diverticulosis, ischemic bowel, pancreatitis, hepatitis, UTI, gastroenteritis, AAA, incarcerated hernia, bowel obstruction, constipation, inflammatory bowel, hepatitis, peptic ulcer disease, splenic infarction, perforated viscus, vulvitis, ovarian torsion, PID, kidney stone, placenta abruption, this is not meant to be an all-inclusive list EKG interpreted by me (3pts min.). @ -Yes X-rays interpreted by me (1pt min.). @ -Yes CT interpreted by me (1pt min.). @ -yes U/S interpreted by me (1pt. min.). @ -None done What testing was considered but not performed or refused? (CT, X-rays, U/S, labs)? Why? @ -None What meds were considered but not given or refused? Why? @ -None Did you discuss the management of the patient with other professionals (professionals i.e. [facility], RE[facility]ESHER, lab, RT, psych nurse, addiction social worker, patrol driver, teacher, evp chief exploration officer, piano case and bench assembler)? Give summary @ -No Was smoking cessation discussed for >3mins.? @ -No Was critical care preformed (if so, how long)? @ -No Were there social determinants of health that impacted care today? How? (Homel essness, low income, unemployed, alcoholism, drug addiction, transportation, low edu. Level, literacy, decrease access to med. care, retirement, rehab)? @ -No Was there de-escalation of care discussed even if they declined (Discuss DNR or withdrawal of care, Hospice)? DNR status @ -No What co-morbidities impacted this encounter? (DM, HTN, Smoking, COPD, CAD, Cancer, CVA, ARF, Chemo, Hep., AIDS, mental health diagnosis, sleep apnea, morbid obesity)? @ -Ascites, chronic liver failure, a flutter Was patient admitted / discharged? Hospital course, mention meds given and route, prescriptions, significant lab abnormalities, going to OR and other pertinent info. @ -Arrival patient is placed into room 8. QRS and physical exam was performed. IV access established laboratory studies were conducted. Urine is obtained. Chest x-ray and CT abdomen are ordered. Patient will be signed out to Dr. Benitez pending studies. Undiagnosed new problem with uncertain prognosis? @ -yes Drug Therapy requiring intensive monitoring for toxicity (Heparin, Nitro, Insulin, Cardizem)? @ -No Were any procedures done? @ -No Diagnosis/symptom? @ -Acute chest pain, acute abdominal pain Acute, or Chronic, or Acute on Chronic? @ -Acute Uncomplicated (without systemic symptoms) or Complicated (systemic symptoms)? @ -complicated Side effects of treatment? @ -No Exacerbation, Progression, or Severe Exacerbation? @ -No Poses a threat to life or bodily function? How? (Chest pain, USA, NC, pneumonia, PE, COPD, DKA, ARF, appy, cholecystitis, CVA, Diverticulitis, Homicidal, Suicidal, threat to staff... and all critical care pts) @ -No (Elizabeth Richard) - Lab Data Lab Results 11/04/22 11/04/22 11/04/22 Range/Units 20:45 20:45 20:45 WBC 4.3 (3.8-10.6) k/uL RBC 5.36 (3.80-5.40) m/uL Hgb 14.8 (11.4-16.0) gm/dL Hct 45.0 (34.0-46.0) % MCV 84.0 (80.0-100.0) fL MCH 27.7 (25.0-35.0) pg MCHC 33.0 (31.0-37.0) g/dL RDW 14.3 (11.5-15.5) % Plt Count 124 L (150-450) k/uL MPV 9.3 Neutrophils % 75 % Lymphocytes % 15 % Monocytes % 6 % Eosinophils % 2 % Basophils % 0 % Neutrophils # 3.2 (1.3-7.7) k/uL Lymphocytes # 0.6 L (1.0-4.8) k/uL Monocytes # 0.3 (0-1.0) k/uL Eosinophils # 0.1 (0-0.7) k/uL Basophils # 0.0 (0-0.2) k/uL PT 11.8 (9.0-12.0) sec INR 1.1 (<1.2) APTT 24.8 (22.0-30.0) sec Sodium 136 L (137-145) mmol/L Potassium 4.3 (3.5-5.1) mmol/L Chloride 101 (98-107) mmol/L Carbon Dioxide 24 (22-30) mmol/L Anion Gap 11 mmol/L BUN 21 H (7-17) mg/dL Creatinine 0.69 (0.52-1.04) mg/dL Est GFR (CKD-EPI)AfAm >90 (>60 ml/min/1.73 sqM) Est GFR (CKD-EPI)NonAf >90 (>60 ml/min/1.73 sqM) Glucose 103 H (74-99) mg/dL Plasma Lactic Acid Yaya (0.7-2.0) mmol/L Calcium 9.2 (8.4-10.2) mg/dL Magnesium 2.1 (1.6-2.3) mg/dL Total Bilirubin 0.9 (0.2-1.3) mg/dL Conjugated Bilirubin 0.0 (0.0-0.3) mg/dL Unconjugated Bilirubin 0.6 (0.0-1.1) mg/dL Delta Bilirubin 0.3 H (0.0-0.2) mg/dL AST 36 (14-36) U/L ALT 20 (4-34) U/L Alkaline Phosphatase 83 (38-126) U/L Ammonia (<30) umol/L Troponin I (0.000-0.034) ng/mL NT-Pro-B Natriuret Pep pg/mL Total Protein 8.3 H (6.3-8.2) g/dL Albumin 4.6 (3.5-5.0) g/dL Lipase 93 (23-300) U/L Urine Color Urine Appearance (Clear) Urine pH (5.0-8.0) Ur Specific [place] (1.001-1.035) Urine Protein (Negative) Urine Glucose (UA) (Negative) Urine Ketones (Negative) Urine Blood (Negative) Urine Nitrite (Negative) Urine Bilirubin (Negative) Urine Urobilinogen (<2.0) mg/dL Ur Leukocyte Esterase (Negative) Urine RBC (0-5) /hpf Urine WBC (0-5) /hpf Ur Squamous Epith Cells (0-4) /hpf Hyaline Casts (0-2) /lpf Urine HCG, Qual (Not Detectd) 11/04/22 11/04/22 11/04/22 Range/Units 20:45 20:45 20:45 WBC (3.8-10.6) k/uL RBC (3.80-5.40) m/uL Hgb (11.4-16.0) gm/dL Hct (34.0-46.0) % MCV (80.0-100.0) fL MCH (25.0-35.0) pg MCHC (31.0-37.0) g/dL RDW (11.5-15.5) % Plt Count (150-450) k/uL MPV Neutrophils % % Lymphocytes % % Monocytes % % Eosinophils % % Basophils % % Neutrophils # (1.3-7.7) k/uL Lymphocytes # (1.0-4.8) k/uL Monocytes # (0-1.0) k/uL Eosinophils # (0-0.7) k/uL Basophils # (0-0.2) k/uL PT (9.0-12.0) sec INR (<1.2) APTT (22.0-30.0) sec Sodium (137-145) mmol/L Potassium (3.5-5.1) mmol/L Chloride (98-107) mmol/L Carbon Dioxide (22-30) mmol/L Anion Gap mmol/L BUN (7-17) mg/dL Creatinine (0.52-1.04) mg/dL Est GFR (CKD-EPI)AfAm (>60 ml/min/1.73 sqM) Est GFR (CKD-EPI)NonAf (>60 ml/min/1.73 sqM) Glucose (74-99) mg/dL Plasma Lactic Acid Yaya (0.7-2.0) mmol/L Calcium (8.4-10.2) mg/dL Magnesium (1.6-2.3) mg/dL Total Bilirubin (0.2-1.3) mg/dL Conjugated Bilirubin (0.0-0.3) mg/dL Unconjugated Bilirubin (0.0-1.1) mg/dL Delta Bilirubin (0.0-0.2) mg/dL AST (14-36) U/L ALT (4-34) U/L Alkaline Phosphatase (38-126) U/L Ammonia (<30) umol/L Troponin I <0.012 (0.000-0.034) ng/mL NT-Pro-B Natriuret Pep 1900 pg/mL Total Protein (6.3-8.2) g/dL Albumin (3.5-5.0) g/dL Lipase (23-300) U/L Urine Color Urine Appearance (Clear) Urine pH (5.0-8.0) Ur Specific [place] (1.001-1.035) Urine Protein (Negative) Urine Glucose (UA) (Negative) Urine Ketones (Negative) Urine Blood (Negative) Urine Nitrite (Negative) Urine Bilirubin (Negative) Urine Urobilinogen (<2.0) mg/dL Ur Leukocyte Esterase (Negative) Urine RBC (0-5) /hpf Urine WBC (0-5) /hpf Ur Squamous Epith Cells (0-4) /hpf Hyaline Casts (0-2) /lpf Urine HCG, Qual Not Detected (Not Detectd) 11/04/22 11/04/22 Range/Units 20:45 20:45 WBC (3.8-10.6) k/uL RBC (3.80-5.40) m/uL Hgb (11.4-16.0) gm/dL Hct (34.0-46.0) % MCV (80.0-100.0) fL MCH (25.0-35.0) pg MCHC (31.0-37.0) g/dL RDW (11.5-15.5) % Plt Count (150-450) k/uL MPV Neutrophils % % Lymphocytes % % Monocytes % % Eosinophils % % Basophils % % Neutrophils # (1.3-7.7) k/uL Lymphocytes # (1.0-4.8) k/uL Monocytes # (0-1.0) k/uL Eosinophils # (0-0.7) k/uL Basophils # (0-0.2) k/uL PT (9.0-12.0) sec INR (<1.2) APTT (22.0-30.0) sec Sodium (137-145) mmol/L Potassium (3.5-5.1) mmol/L Chloride (98-107) mmol/L Carbon Dioxide (22-30) mmol/L Anion Gap mmol/L BUN (7-17) mg/dL Creatinine (0.52-1.04) mg/dL Est GFR (CKD-EPI)AfAm (>60 ml/min/1.73 sqM) Est GFR (CKD-EPI)NonAf (>60 ml/min/1.73 sqM) Glucose (74-99) mg/dL Plasma Lactic Acid Yaya 1.1 (0.7-2.0) mmol/L Calcium (8.4-10.2) mg/dL Magnesium (1.6-2.3) mg/dL Total Bilirubin (0.2-1.3) mg/dL Conjugated Bilirubin (0.0-0.3) mg/dL Unconjugated Bilirubin (0.0-1.1) mg/dL Delta Bilirubin (0.0-0.2) mg/dL AST (14-36) U/L ALT (4-34) U/L Alkaline Phosphatase (38-126) U/L Ammonia 23 (<30) umol/L Troponin I (0.000-0.034) ng/mL NT-Pro-B Natriuret Pep pg/mL Total Protein (6.3-8.2) g/dL Albumin (3.5-5.0) g/dL Lipase (23-300) U/L Urine Color Yellow Urine Appearance Clear (Clear) Urine pH 6.5 (5.0-8.0) Ur Specific [place] 1.017 (1.001-1.035) Urine Protein 1+ H (Negative) Urine Glucose (UA) Negative (Negative) Urine Ketones Negative (Negative) Urine Blood Trace H (Negative) Urine Nitrite Negative (Negative) Urine Bilirubin Negative (Negative) Urine Urobilinogen <2.0 (<2.0) mg/dL Ur Leukocyte Esterase Negative (Negative) Urine RBC <1 (0-5) /hpf Urine WBC 1 (0-5) /hpf Ur Squamous Epith Cells 2 (0-4) /hpf Hyaline Casts 1 (0-2) /lpf Urine HCG, Qual (Not Detectd) Disposition Decision Time: 00:54 <Mono Benitez - Last Filed: 11/05/22 00:51> <Elizabeth Richard - Last Filed: 11/14/22 13:09> Clinical Impression: SBP (spontaneous bacterial peritonitis) Disposition: ADMITTED IP TO THIS HOSP Condition: Fair
[2022-11-04 23:23] LABS: Lactic Acid, Venous 1.1 mmol/L (0.7-2.0)
[2022-11-04 23:25] LABS: ALT 20 U/L (4-34); AST 36 U/L (14-36); African American GFR (CKD) >90 (>60 ml/min/1.73 sqM); Albumin 4.6 g/dL (3.5-5.0); Alkaline Phosphatase 83 U/L (38-126); Anion Gap 11 mmol/L; Bilirubin, Delta 0.3 mg/dL (0.0-0.2); Bilirubin,Unconjugated 0.6 mg/dL (0.0-1.1); Blood Urea Nitrogen 21 mg/dL (7-17); Calcium 9.2 mg/dL (8.4-10.2); Carbon Dioxide 24 mmol/L (22-30); Chloride 101 mmol/L (98-107); Glucose 103 mg/dL (74-99); Lipase 93 U/L (23-300); Magnesium 2.1 mg/dL (1.6-2.3); Non-African American GFR(CKD) >90 (>60 ml/min/1.73 sqM); Potassium 4.3 mmol/L (3.5-5.1); Sodium 136 mmol/L (137-145); Total Bilirubin 0.9 mg/dL (0.2-1.3); Total Protein 8.3 g/dL (6.3-8.2)
[2022-11-04 23:28] LABS: Basophils % (A) 0 %; Eosinophils # (A) 0.1 k/uL (0-0.7); Eosinophils % (A) 2 %; HGB 14.8 gm/dL (11.4-16.0); Lymphocytes # (A) 0.6 k/uL (1.0-4.8); Lymphocytes % (A) 15 %; MCH 27.7 pg (25.0-35.0); Mean Platelet Volume 9.3; Monocytes # (A) 0.3 k/uL (0-1.0); Monocytes % (A) 6 %; Neutrophils # (A) 3.2 k/uL (1.3-7.7); Neutrophils % (A) 75 %; Platelet Count 124 k/uL (150-450); RBC 5.36 m/uL (3.80-5.40); RDW 14.3 % (11.5-15.5); WBC 4.3 k/uL (3.8-10.6)
[2022-11-04 23:33] LABS: Appearance,Urine Clear (Clear); Bilirubin,Urine Negative (Negative); Blood,Urine Trace (Negative); Color,Urine Yellow; Glucose,Urine (UA) Negative (Negative); Hyaline Casts,Urine 1 /lpf (0-2); INR 1.1 (<1.2); Ketones,Urine Negative (Negative); Leukocyte Esterase,Urine Negative (Negative); Nitrite,Urine Negative (Negative); PH, Urine 6.5 (5.0-8.0); Partial Thromboplastin Time 24.8 sec (22.0-30.0); Protein,Urine 1+ (Negative); Prothrombin Time 11.8 sec (9.0-12.0); RBC,Urine <1 /hpf (0-5); Specific Gravity,Urine 1.017 (1.001-1.035); Squamous Epithelial Cell,Urine 2 /hpf (0-4); Urobilinogen,Urine <2.0 mg/dL (<2.0); WBC,Urine 1 /hpf (0-5)
--- NOTE | 2022-11-05 00:21 | XR ---
EXAM: XR Chest, 2 Views CLINICAL HISTORY: ITS.REASON XR Reason: Chest Pain TECHNIQUE: Frontal and lateral views of the chest. COMPARISON: No relevant prior studies available. FINDINGS: Lungs: Unremarkable. No focal infiltrate. Pleural space: Unremarkable. No pneumothorax. Heart: Cardiomegaly. Mediastinum: Unremarkable. Bones/joints: Sternotomy wires. Soft tissues: Surgical clips project over the mid chest. IMPRESSION: No focal infiltrate.
--- NOTE | 2022-11-05 00:32 | CT ---
EXAM: CT Abdomen and Pelvis With Intravenous Contrast CLINICAL HISTORY: ITS.REASON CT Reason: llq pain TECHNIQUE: Axial computed tomography images of the abdomen and pelvis with intravenous contrast. CTDI is 16.67 mGy and DLP is 819.5 mGy-cm. This CT exam was performed using one or more of the following dose reduction techniques: automated exposure control, adjustment of the mA and/or kV according to patient size, and/or use of iterative reconstruction technique. COMPARISON: No relevant prior studies available. FINDINGS: Lung bases: Unremarkable. No mass. No consolidation. ABDOMEN: Liver: Hepatic cirrhosis. Large volume abdominal and pelvic ascites. Gallbladder and bile ducts: Unremarkable. No calcified stones. No ductal dilation. Pancreas: Unremarkable. No mass. No ductal dilation. Spleen: Splenomegaly. Adrenals: Unremarkable. No mass. Kidneys and ureters: Unremarkable. No solid mass. No hydronephrosis. Stomach and bowel: Wall thickening of small bowel, correlate for spontaneous bacterial peritonitis. No obstruction. PELVIS: Appendix: No findings to suggest acute appendicitis. Bladder: Unremarkable. No mass. Reproductive: Unremarkable as visualized. ABDOMEN and PELVIS: Intraperitoneal space: See above. Bones/joints: No acute fracture. No dislocation. Soft tissues: Suspected mass in the LEFT breast measures 4.5 x 2.3 cm, including on image 1. This is only partially included in the field-of- view. Mammogram recommended. Note, there is a possibility this does represent normal breast tissue. Vasculature: Unremarkable. No abdominal aortic aneurysm. Lymph nodes: Unremarkable. No enlarged lymph nodes. IMPRESSION: 1. Suspected mass in the LEFT breast measures 4.5 x 2.3 cm, including on image 1. This is only partially included in the [id number]. Mammogram recommended. Note, there is a possibility this does represent normal breast tissue. 2. Wall thickening of small bowel, correlate for spontaneous bacterial peritonitis. 3. Hepatic cirrhosis. Large volume abdominal and pelvic ascites. 4. Splenomegaly.
[2022-11-05] MEDS ORDERED: cefTRIAXone IN SWFI 1,000 MG/10 ML SYRINGE IVP STA (00:40)
[2022-11-05] MEDS ORDERED: NALOXONE 0.4 MG/ML 1 ML VIAL IV PRN (00:54)
[2022-11-05] MEDS: SODIUM CHLORIDE 0.9% 1,000 ML IV SCH ×2 (01:14→03:15)
[2022-11-05] MEDS: HYDROmorphone 0.5 MG/0.5 ML SYRINGE IVP PRN ×2 (03:25→20:58)
[2022-11-05] MEDS ORDERED: NITROGLYCERIN SL TABS 0.4 MG TAB SUBLINGUAL PRN (07:53)
[2022-11-05] MEDS ORDERED: ALBUTEROL NEBULIZED 2.5 MG/3 ML INHALATION PRN (07:53)
[2022-11-05] MEDS ORDERED: IBUPROFEN 800 MG TAB PO PRN (07:53)
[2022-11-05] MEDS: APIXABAN 5 MG TAB PO SCH ×2 (08:39→13:56)
[2022-11-05] MEDS: FUROSEMIDE 20 MG TAB PO SCH (08:39)
[2022-11-05] MEDS: LEVOTHYROXINE 75 MCG TAB PO SCH (08:40)
[2022-11-05] MEDS: METOPROLOL TARTRATE 25 MG TAB PO SCH (08:40)
--- NOTE | 2022-11-05 17:10 | P.HPIM ---
History of Present Illness H&P Date: 11/05/22 Asuncion Rizzo, he is a 42-year-old female, who presented to [facility] emergency room with a chief complaint of left lower quadrant abdominal pain that started at 3 PM on the day of presentation. She was evaluated in the emergency room vital examination on presentation revealed a temperature of 97.5 pulse 74 respiration 16 blood pressure 135/85 pulse ox 98% on room air Laboratory data revealed a white blood count of 4.3 hemoglobin 14.8 platelet count 124 sodium 136 potassium 4.3 chloride 101 CO2 24 BUN 21 creatinine 0.69 Testing in the emergency room revealed computed tomography scan of the abdomen and pelvis done in the emergency room revealed wall thickening of the small bowels with suspicion for spontaneous bacterial retune iritis and evidence of large volume abdominal and pelvic ascites. Patient was started on IV antibiotics and admitted to medical floor for further evaluation and treatment. Past medical history is significant for history of congenital heart disease, history of liver cirrhosis, history of atrial flutter, history of hypothyroidism, history of hypertension, history of asthma, and history of noncompliance with taking medications. 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 7, Past Anesthesia/Blood Transfusion Reactions: Previous Problems w/ Anesthesia Additional Past Anesthesia/Blood Transfusion Reaction / Comment(s): Patient states she is allergic to anesthesia during 2018 heart cath -- had numbness in right face and left hand, states anesthesiologists indicated if next procedure, would have to be adjusted Past Psychological History: No Psychological Hx Reported Smoking Status: Never smoker Past Alcohol Use History: None Reported Past Drug Use History: None Reported - Past Family History Mother Family Medical History: Asthma, Cancer, Hyperlipidemia, Hypertension Additional Family Medical History / Comment(s): Mother had breast CA at age 52 Brother(s) Family Medical History: Asthma Father Family Medical History: Asthma Medications and Allergies Home Medications Medication Instructions Recorded Confirmed Type Nitroglycerin Sl Tabs [Nitrostat] 0.4 mg SUBLINGUAL Q5M PRN tab 12/28/20 11/04/22 Rx Ibuprofen [Motrin] 800 mg PO Q8H PRN 06/08/21 11/04/22 History Apixaban [Eliquis] 5 mg PO BID #60 tab 06/09/21 11/04/22 Rx Furosemide [Lasix] 20 mg PO DAILY 30 Days #30 tab 06/11/21 11/04/22 Rx Metoprolol Tartrate 25 mg PO DAILY 30 Days #30 tab 06/11/21 11/04/22 Rx Albuterol Inhaler [Ventolin Hfa 2 puff INHALATION RT-Q6H PRN 11/04/22 11/04/22 History Inhaler] Levothyroxine Sodium [Synthroid] 75 mcg PO DAILY 11/04/22 11/04/22 History Allergies Allergy/AdvReac Type Severity Reaction Status Date / Time warfarin sodium Allergy Anaphylaxis Verified 11/04/22 22:36 [From Coumadin] peas AdvReac Diarrhea Verified 11/04/22 22:36 Physical Exam Vitals: Vital Signs Temp Pulse Pulse Resp BP BP Pulse Ox 11/05/22 01:55 97.7 F 53 L 18 116/75 95 11/05/22 01:00 97.9 F 59 L 18 116/78 97 11/04/22 23:21 58 L 18 85/62 98 11/04/22 21:43 97.5 F L 74 16 135/85 98 Intake and Output 11/04/22 11/05/22 11/05/22 22:59 06:59 14:59 Other: # Voids 1 Weight 59.874 kg 59.874 kg In general patient is alert and oriented x 3 in no distress HEENT head normocephalic and atraumatic Neck is supple no JVD no goiter no lymphadenopathy no carotid bruit Chest examination is clear to auscultation no crackles no wheezing Cardiac exam reveals regular heart sounds S1 and S2 no gallops no murmurs Abdomen is soft with mild diffuse tenderness mostly in the left lower quadrant Extremity exam reveals no edema no cyanosis or clubbing Neurological examination reveals no gross focal deficits Results CBC & Chem 7: 11/04/22 20:45 11/04/22 20:45 Labs: Abnormal Lab Results - Last 24 Hours (Table) 11/04/22 11/04/22 11/04/22 Range/Units 20:45 20:45 20:45 Plt Count 124 L (150-450) k/uL Lymphocytes # 0.6 L (1.0-4.8) k/uL Sodium 136 L (137-145) mmol/L BUN 21 H (7-17) mg/dL Glucose 103 H (74-99) mg/dL Delta Bilirubin 0.3 H (0.0-0.2) mg/dL Total Protein 8.3 H (6.3-8.2) g/dL Urine Protein 1+ H (Negative) Urine Blood Trace H (Negative) Assessment and Plan Plan: Abdominal pain with computed tomography scan concern of bacterial peritonitis patient was started on IV antibiotics and admitted to medical floor infectious disease consultation requested Liver cirrhosis with large ascites Underlying history of atrial flutter maintained on Eliquis Underlying history of hypothyroidism Underlying history of hypertension Underlying history of asthma Suspicion for a breast mass on computed tomography scan, patient will need follow-up mammogram as outpatient At this time patient is admitted to medical floor Continue with IV antibiotic Home medications reviewed and reordered , at this time will hold Eliquis in anticipation of paracentesis cardiology and infectious disease consultation requested Will follow closely
--- NOTE | 2022-11-05 19:40 | P.CONS ---
History of Present Illness - Reason for Consult Consult date: 11/05/22 SBP Requesting physician: Devaughn Marino - Chief Complaint Abdominal pain 1 day - History of Present Illness Patient is a 42-year-old female with a past medical history significant for asthma atrial flutter hypothyroidism did have a history of cirrhosis of the liver with the patient is attributing to hepatitis D and the patient to follow-up with Dr. Wilkes in the outpatient GI clinic patient did mention she did have a previous history of paracentesis but has been many months ago patient presented to hospital with acute left lower quadrant pain after the patient took a laxative for constipation patient describes the pain to be more of a sharp in nature almost 7-8 out of 10 radiation has been nauseated but no vomiting and denies having any diarrhea patient on presentation to the hospital was afebrile and no fever has been guarded subsequently patient did have a normal white count kidney function was normal liver enzymes are normal urine is negative patient did have a CT of abdominal pelvis which showed large volume abdominal pelvic ascites suspected mass in the left breast wall thickening of small bowel correlate for spontaneous bacterial peritonitis patient was given a dose of Rocephin has been admitted to hospital infectious disease was consulted for further management Review of Systems Positive point and negatives has been mentioned in the HPI, complete review of systems was performed and all other systems are negative 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 7, Past Anesthesia/Blood Transfusion Reactions: Previous Problems w/ Anesthesia Additional Past Anesthesia/Blood Transfusion Reaction / Comm: Patient states she is allergic to anesthesia during 2018 heart cath -- had numbness in right face and left hand, states anesthesiologists indicated if next procedure, would have to be adjusted Past Psychological History: No Psychological Hx Reported Smoking Status: Never smoker Past Alcohol Use History: None Reported Past Drug Use History: None Reported - Past Family History Mother Family Medical History: Asthma, Cancer, Hyperlipidemia, Hypertension Additional Family Medical History / Comment(s): Mother had breast CA at age 52 Brother(s) Family Medical History: Asthma Father Family Medical History: Asthma Medications and Allergies Home Medications Medication Instructions Recorded Confirmed Type Nitroglycerin Sl Tabs [Nitrostat] 0.4 mg SUBLINGUAL Q5M PRN tab 12/28/20 11/04/22 Rx Ibuprofen [Motrin] 800 mg PO Q8H PRN 06/08/21 11/04/22 History Apixaban [Eliquis] 5 mg PO BID #60 tab 06/09/21 11/04/22 Rx Furosemide [Lasix] 20 mg PO DAILY 30 Days #30 tab 06/11/21 11/04/22 Rx Metoprolol Tartrate 25 mg PO DAILY 30 Days #30 tab 06/11/21 11/04/22 Rx Albuterol Inhaler [Ventolin Hfa 2 puff INHALATION RT-Q6H PRN 11/04/22 11/04/22 History Inhaler] Levothyroxine Sodium [Synthroid] 75 mcg PO DAILY 11/04/22 11/04/22 History Allergies Allergy/AdvReac Type Severity Reaction Status Date / Time warfarin sodium Allergy Anaphylaxis Verified 11/04/22 22:36 [From Coumadin] peas AdvReac Diarrhea Verified 11/04/22 22:36 Physical Exam Vitals: Vital Signs Temp Pulse Pulse Resp BP BP Pulse Ox 11/05/22 08:41 94 L 11/05/22 07:28 97.3 F L 75 18 119/84 96 11/05/22 01:55 97.7 F 53 L 18 116/75 95 11/05/22 01:00 97.9 F 59 L 18 116/78 97 11/04/22 23:21 58 L 18 85/62 98 11/04/22 21:43 97.5 F L 74 16 135/85 98 Intake and Output 11/04/22 11/05/22 11/05/22 22:59 06:59 14:59 Other: # Voids 1 Weight 59.874 kg 59.874 kg GENERAL DESCRIPTION: Middle-aged female lying in bed, no distress. No tachypnea or accessory muscle of respiration use. HEENT: Shows Pallor , no scleral icterus. Oral mucous membrane is dry. NECK: Trachea central, no thyromegaly. LUNGS: Unlabored breathing. Clear to auscultation anteriorly. No wheeze or crackle. HEART: S1, S2, regular rate and rhythm. No loud murmur ABDOMEN: Soft, mild distention and tenderness EXTREMITIES: No edema of feet. SKIN: No rash, no masses palpable. NEUROLOGICAL: The patient is awake, alert, oriented x3, mood and affect normal. Results CBC & Chem 7: 11/09/22 05:30 11/09/22 05:30 Labs: Abnormal Lab Results - Last 24 Hours (Table) 11/04/22 11/04/22 11/04/22 Range/Units 20:45 20:45 20:45 Plt Count 124 L (150-450) k/uL Lymphocytes # 0.6 L (1.0-4.8) k/uL Sodium 136 L (137-145) mmol/L BUN 21 H (7-17) mg/dL Glucose 103 H (74-99) mg/dL Delta Bilirubin 0.3 H (0.0-0.2) mg/dL Total Protein 8.3 H (6.3-8.2) g/dL Urine Protein 1+ H (Negative) Urine Blood Trace H (Negative) Assessment and Plan (1) Abnormal CT of the abdomen Current Visit: Yes Status: Acute Code(s): R93.5 - ABN FINDINGS ON DX IMAGING OF ABD REGIONS, INC RETROPERITON SNOMED Code(s): 85270758323596896 (2) SBP (spontaneous bacterial peritonitis) Current Visit: Yes Status: Acute Code(s): K65.2 - SPONTANEOUS BACTERIAL PERITONITIS SNOMED Code(s): 66790767 Plan: 1patient presented to hospital with acute abdominal pain in this patient who do have a history of cirrhosis of the liver and did have evidence of large volume ascites on the CT concerning for possible SBP patient however do not have any fever or elevated white count and no mention of any diverticulitis or colitis on the CT 2-we will consult IR for paracentesis and the fluid should be sent for cell count and differential along with culture 3-Rocephin 2 g daily while waiting for the work-up to be completed We will follow on clinical condition and cultures to further adjust medication if needed Thank you for this consultation we will follow the patient along with you Time with Patient: Greater than 30
[2022-11-06] MEDS: APIXABAN 5 MG TAB PO SCH ×2 (00:01→20:35)
[2022-11-06] MEDS: LEVOTHYROXINE 75 MCG TAB PO SCH (06:26)
[2022-11-06] MEDS: HYDROmorphone 0.5 MG/0.5 ML SYRINGE IVP PRN ×2 (06:26→17:33)
[2022-11-06] MEDS: FUROSEMIDE 20 MG TAB PO SCH (09:03)
[2022-11-06] MEDS: METOPROLOL TARTRATE 25 MG TAB PO SCH (09:03)
--- NOTE | 2022-11-06 10:38 | P.PN ---
Subjective Progress Note Date: 11/06/22 Asuncion Rizzo, he is a 42-year-old female, who presented to [facility] emergency room with a chief complaint of left lower quadrant abdominal pain that started at 3 PM on the day of presentation. She was evaluated in the emergency room vital examination on presentation revealed a temperature of 97.5 pulse 74 respiration 16 blood pressure 135/85 pulse ox 98% on room air Laboratory data revealed a white blood count of 4.3 hemoglobin 14.8 platelet count 124 sodium 136 potassium 4.3 chloride 101 CO2 24 BUN 21 creatinine 0.69 Testing in the emergency room revealed computed tomography scan of the abdomen and pelvis done in the emergency room revealed wall thickening of the small bowels with suspicion for spontaneous bacterial retune iritis and evidence of large volume abdominal and pelvic ascites. Patient was started on IV antibiotics and admitted to medical floor for further evaluation and treatment. Past medical history is significant for history of congenital heart disease, hi story of liver cirrhosis, history of atrial flutter, history of hypothyroidism, history of hypertension, history of asthma, and history of noncompliance with taking medications. On 11/06/2022 patient is alert and oriented 3. Patient reports some improvement with abdominal discomfort. Patient remains on IV Rocephin cardiology and interventional radiology consulted for possible paracentesis. C urrent vital signs temp 97.9, heart rate 58, blood pressure 92/61 with pulse ox 94% on room air Objective - Vital Signs Vital signs: Vital Signs Temp 97.9 F 11/06/22 08:00 Pulse 58 L 11/06/22 08:00 Resp 20 11/06/22 09:21 BP 92/61 11/06/22 08:00 Pulse Ox 94 L 11/06/22 08:00 FiO2 Intake & Output 11/05/22 11/06/22 11/06/22 18:59 06:59 18:59 Intake Total 834 180 Balance 834 180 Intake: Oral 834 180 Other: # Voids 3 - Exam In general patient is alert and oriented x 3 in no distress HEENT head normocephalic and atraumatic Neck is supple no JVD no goiter no lymphadenopathy no carotid bruit Chest examination is clear to auscultation no crackles no wheezing Cardiac exam reveals regular heart sounds S1 and S2 no gallops no murmurs Abdomen is soft with mild diffuse tenderness mostly in the left lower quadrant Extremity exam reveals no edema no cyanosis or clubbing Neurological examination reveals no gross focal deficits - Labs CBC & Chem 7: 11/04/22 20:45 11/04/22 20:45 Assessment and Plan Plan: Abdominal pain with computed tomography scan concern of bacterial peritonitis patient was started on IV antibiotics and admitted to medical floor infectious disease consultation requested Liver cirrhosis with large ascites Underlying history of atrial flutter maintained on Eliquis Underlying history of hypothyroidism Underlying history of hypertension Underlying history of asthma Suspicion for a breast mass on computed tomography scan, patient will need follow-up mammogram as outpatient At this time patient is admitted to medical floor Continue with IV antibiotic Home medications reviewed and reordered , at this time will hold Eliquis in anticipation of paracentesis cardiology and infectious disease consultation requested Will follow closely
[2022-11-06 11:02] LABS: Basophils # (A) 0.05 X 10*3/uL (0.00-0.10); Basophils % (A) 1.1 %; Eosinophils # (A) 0.15 X 10*3/uL (0.04-0.35); Eosinophils % (A) 3.3 %; HCT 44.2 % (37.2-46.3); HGB 14.3 g/dL (12.0-15.0); Immature Grans, Automated 0.4 %; Lymphocytes # (A) 0.69 X 10*3/uL (0.90-5.00); Lymphocytes % (A) 15.2 %; MCH 27.7 pg (27.0-32.0); MCHC 32.4 g/dL (32.0-37.0); MCV 85.5 fL (80.0-97.0); Mean Platelet Volume 11.7 fL (9.5-12.2); Monocytes # (A) 0.49 X 10*3/uL (0.20-1.00); Monocytes % (A) 10.8 %; NRBC Per 100 WBC 0 /100 WBCS (0.0-0.0); Neutrophils # (A) 3.15 X 10*3/uL (1.80-7.70); Neutrophils % (A) 69.2 %; Platelet Count 131 X 10*3/uL (140-440); RBC 5.17 X 10*6/uL (4.10-5.20); RDW 14.3 % (11.5-14.5); WBC 4.55 X 10*3/uL (4.50-10.00)
[2022-11-06 11:29] LABS: African American GFR (CKD) 102.3 (60.0-200.0); Albumin 4.2 g/dL (3.8-4.9); Albumin/Globulin Ratio 1.36 (1.60-3.17); Anion Gap 10.5 mmol/L (10.00-18.00); BUN/Creat Ratio 19.51 Ratio (12.00-20.00); C Reactive Protein 1.2 mg/dL (0.00-0.80); Calcium 9.3 mg/dL (8.7-10.3); Carbon Dioxide 21.8 mmol/L (20.0-27.5); Globulin 3.1 g/dL (1.6-3.3); Non-African American GFR(CKD) 88.3 (60.0-200.0); Potassium 4.3 mmol/L (3.5-5.5); Total Bilirubin 0.6 mg/dL (0.30-1.20); Total Protein 7.3 g/dL (6.2-8.2)
--- NOTE | 2022-11-06 11:35 | US ---
Ultrasound-guided paracentesis. DATE OF EXAM: 11/06/2022 CLINICAL HISTORY: Ascites The procedure was discussed with the patient. The risks, complications, benefits, and alternatives we re discussed and any questions were answered. Informed consent was obtained. The patient was placed s upine on the ultrasound table and prepped and draped in the usual sterile fashion. All elements of maximal barrier technique were utilized. Under ultrasound guidance, access into the right lower quadrant was obtained, via the paracentesis catheter system and direct ultrasound guidanc e. Approximately 4.3 liters of straw-colored fluid was removed. The patient was stable throughout the pr ocedure and remained stable upon discharge from Department of Radiology. IMPRESSION: Successful paracentesis under ultrasound guidance.
[2022-11-06 11:54] LABS: Hepatitis B Surface Antigen Nonreactive (Nonreactive); Hepatitis C IgG Antibody Nonreactive (Nonreactive)
--- NOTE | 2022-11-06 15:30 | P.PN ---
Subjective Progress Note Date: 11/06/22 Principal diagnosis: Peritonitis Patient is a 42-year-old female with a past medical history significant for asthma atrial flutter hypothyroidism did have a history of ci rrhosis of the liver with the patient is attributing to hepatitis D, presented to the hospital abdominal pain patient did have a CT abdominal pelvis with evidence of peritoneal fluid and suspicious for SBP. The patient is status post ultrasound guided paracentesis completed on 11/06/2022 On today's evaluation that is 11/06/2022, the patient denies having any fever or chills, the patient is breathing comfortably on room air, the patient denies having any chest pain or shortness of breath and some vague abdominal pain and nausea but no vomiting and no diarrhea Objective - Vital Signs Vital signs: Vital Signs Temp 97.3 F L 11/06/22 10:17 Pulse 54 L 11/06/22 11:00 Resp 16 11/06/22 11:00 BP 98/55 11/06/22 11:00 Pulse Ox 94 L 11/06/22 11:00 FiO2 Intake & Output 11/05/22 11/06/22 11/06/22 18:59 06:59 18:59 Intake Total 834 180 Balance 834 180 Intake: Oral 834 180 Other: # Voids 3 - Exam GENERAL DESCRIPTION: Middle-aged female lying in bed in no distress RESPIRATORY SYSTEM: Unlabored breathing , decreased breath sounds at bases HEART: S1 S2 regular rate and rhythm , ABDOMEN: Soft , mild tenderness EXTREMITIES: No edema feet - Labs CBC & Chem 7: 11/06/22 06:00 11/06/22 06:00 Labs: Abnormal Lab Results - Last 24 Hours (Table) 11/06/22 11/06/22 Range/Units 06:00 06:00 Plt Count 131 L (140-440) X 10*3/uL Lymphocytes # 0.69 L (0.90-5.00) X 10*3/uL C-Reactive Protein 1.20 H (0.00-0.80) mg/dL Albumin/Globulin Ratio 1.36 L (1.60-3.17) g/dL Assessment and Plan (1) SBP (spontaneous bacterial peritonitis) Current Visit: Yes Status: Acute Code(s): K65.2 - SPONTANEOUS BACTERIAL PERITONITIS SNOMED Code(s): 92447864 Plan: 1patient presented to hospital with acute abdominal pain in this patient who do have a history of cirrhosis of the liver and did have evidence of large volume ascites on the CT concerning for possible SBP patient however do not have any fever or elevated white count and no mention of any diverticulitis or colitis on the CT 2-patient is status post IR paracentesis and the fluid has been sent for cell count and differential along with culture, reports currently pending 3-Rocephin 2 g daily while waiting for the work-up to be completed, Time with Patient: Less than 30
[2022-11-07] MEDS: SODIUM CHLORIDE 0.9% 1,000 ML IV SCH (01:23)
[2022-11-07] MEDS: LEVOTHYROXINE 75 MCG TAB PO SCH (06:23)
[2022-11-07] MEDS: HYDROmorphone 0.5 MG/0.5 ML SYRINGE IVP PRN ×2 (06:23→20:40)
[2022-11-07] MEDS: APIXABAN 5 MG TAB PO SCH ×2 (08:16→20:41)
[2022-11-07] MEDS: FUROSEMIDE 20 MG TAB PO SCH (08:16)
[2022-11-07] MEDS: METOPROLOL TARTRATE 25 MG TAB PO SCH (08:21)
[2022-11-07 09:15] LABS: Basophils # (A) 0.05 X 10*3/uL (0.00-0.10); Eosinophils # (A) 0.15 X 10*3/uL (0.04-0.35); Eosinophils % (A) 2.9 %; HCT 46.8 % (37.2-46.3); HGB 14.8 g/dL (12.0-15.0); Immature Grans, Automated 0 %; Lymphocytes # (A) 0.74 X 10*3/uL (0.90-5.00); Lymphocytes % (A) 14.4 %; MCH 27.2 pg (27.0-32.0); MCHC 31.6 g/dL (32.0-37.0); MCV 85.9 fL (80.0-97.0); Mean Platelet Volume 11.8 fL (9.5-12.2); Monocytes # (A) 0.53 X 10*3/uL (0.20-1.00); Monocytes % (A) 10.3 %; NRBC Per 100 WBC 0 /100 WBCS (0.0-0.0); Neutrophils # (A) 3.68 X 10*3/uL (1.80-7.70); Neutrophils % (A) 71.4 %; Platelet Count 146 X 10*3/uL (140-440); RBC 5.45 X 10*6/uL (4.10-5.20); RDW 13.9 % (11.5-14.5); WBC 5.15 X 10*3/uL (4.50-10.00)
[2022-11-07 09:48] LABS: African American GFR (CKD) 91.4 (60.0-200.0); Albumin 3.9 g/dL (3.8-4.9); Albumin/Globulin Ratio 1.26 (1.60-3.17); Anion Gap 9.4 mmol/L (10.00-18.00); BUN/Creat Ratio 15.78 Ratio (12.00-20.00); Blood Urea Nitrogen 14.2 mg/dL (9.0-27.0); Calcium 9.1 mg/dL (8.7-10.3); Carbon Dioxide 26.6 mmol/L (20.0-27.5); Globulin 3.1 g/dL (1.6-3.3); Non-African American GFR(CKD) 78.9 (60.0-200.0); Potassium 4.3 mmol/L (3.5-5.5); Total Bilirubin 0.5 mg/dL (0.30-1.20)
--- NOTE | 2022-11-07 10:52 | P.PN ---
Subjective Progress Note Date: 11/07/22 Principal diagnosis: Peritonitis Patient is a 42-year-old female with a past medical history significant for asthma atrial flutter hypothyroidism did have a history of ci rrhosis of the liver with the patient is attributing to hepatitis D, presented to the hospital abdominal pain patient did have a CT abdominal pelvis with evidence of peritoneal fluid and suspicious for SBP. The patient is status post ultrasound guided paracentesis completed on 11/06/2022 On today's evaluation that is 11/07/2022, the patient continues to be afebrile, the patient is breathing comfortably on room air, the patient denies having any chest pain or shortness of breath, the patient had been complaining of some abdominal pain however has decreased in intensity, did have some nausea but no vomiting and no diarrhea Objective - Vital Signs Vital signs: Vital Signs Temp 98.0 F 11/07/22 07:32 Pulse 60 11/07/22 07:32 Resp 17 11/07/22 07:32 BP 113/74 11/07/22 07:32 Pulse Ox 94 L 11/07/22 08:34 FiO2 Intake & Output 11/06/22 11/07/22 11/07/22 18:59 06:59 18:59 Intake Total 530 Balance 530 Intake: Oral 530 Other: # Voids 2 2 - Exam GENERAL DESCRIPTION: Middle-aged female lying in bed in no distress RESPIRATORY SYSTEM: Unlabored breathing , decreased breath sounds at bases HEART: S1 S2 regular rate and rhythm , ABDOMEN: Soft , mild tenderness EXTREMITIES: No edema feet - Labs CBC & Chem 7: 11/07/22 04:21 11/07/22 04:21 Labs: Abnormal Lab Results - Last 24 Hours (Table) 11/06/22 11/06/22 11/07/22 Range/Units 06:00 06:00 04:21 RBC 5.45 H (4.10-5.20) X 10*6/uL Hct 46.8 H (37.2-46.3) % MCHC 31.6 L (32.0-37.0) g/dL Plt Count 131 L (140-440) X 10*3/uL Lymphocytes # 0.69 L 0.74 L (0.90-5.00) X 10*3/uL C-Reactive Protein 1.20 H (0.00-0.80) mg/dL Albumin/Globulin Ratio 1.36 L (1.60-3.17) g/dL Assessment and Plan (1) SBP (spontaneous bacterial peritonitis) Current Visit: Yes Status: Acute Code(s): K65.2 - SPONTANEOUS BACTERIAL PERITONITIS SNOMED Code(s): 54741478 Plan: 1patient presented to hospital with acute abdominal pain in this patient who do have a history of cirrhosis of the liver and did have evidence of large volume ascites on the CT concerning for possible SBP patient however do not have any fever or elevated white count and no mention of any diverticulitis or colitis on the CT 2-patient is status post IR paracentesis and the fluid has been sent for cell count and differential along with culture, reports are still pending as of 11/07/2022 morning 3-Rocephin 2 g daily while waiting for the work-up to be completed,
--- NOTE | 2022-11-07 12:36 | P.PN ---
Subjective Progress Note Date: 11/07/22 ade Morales is a 42-year-old female, who presented to [facility] emergency room with a chief complaint of left lower quadrant abdominal pain that started at 3 PM on the day of presentation. She was evaluated in the emergency room vital examination on presentation revealed a temperature of 97.5 pulse 74 respiration 16 blood pressure 135/85 pulse ox 98% on room air Laboratory data revealed a white blood count of 4.3 hemoglobin 14.8 platelet count 124 sodium 136 potassium 4.3 chloride 101 CO2 24 BUN 21 creatinine 0.69 Testing in the emergency room revealed computed tomography scan of the abdomen and pelvis done in the emergency room revealed wall thickening of the small bowels with suspicion for spontaneous bacterial retune iritis and evidence of large volume abdominal and pelvic ascites. Patient was started on IV antibiotics and admitted to medical floor for further evaluation and treatment. Past medical history is significant for history of congenital heart disease, hi story of liver cirrhosis, history of atrial flutter, history of hypothyroidism, history of hypertension, history of asthma, and history of noncompliance with taking medications. On 11/06/2022 patient is alert and oriented 3. Patient reports some improvement with abdominal discomfort. Patient remains on IV Rocephin cardiology and interventional radiology consulted for possible paracentesis. C urrent vital signs temp 97.9, heart rate 58, blood pressure 92/61 with pulse ox 94% on room air. On 11/07/2022 patient was seen and examined on the medical floor she is alert and oriented 3 in no apparent distress she is still complaining of some abdominal discomfort otherwise she denies any complaints there is no fever or chills no headache or dizziness no chest pain no shortness of breath no cough no nausea or vomiting no abdominal pain no diarrhea no blood in the stools no burning with urination no frequency or urgency and no hematuria. Patient underwent paracentesis yesterday. At this time we are awaiting for culture results, she remains on IV Rocephin, infectious disease following. Objective - Vital Signs Vital signs: Vital Signs Temp 98.0 F 11/07/22 01:37 Pulse 52 L 11/07/22 01:37 Resp 18 11/07/22 01:37 BP 82/56 11/07/22 01:37 Pulse Ox 91 L 11/07/22 01:37 FiO2 Intake & Output 11/06/22 11/07/22 11/07/22 18:59 06:59 18:59 Intake Total 530 Balance 530 Intake: Oral 530 Other: # Voids 2 2 - Exam In general patient is alert and oriented x 3 in no distress HEENT head normocephalic and atraumatic Neck is supple no JVD no goiter no lymphadenopathy no carotid bruit Chest examination is clear to auscultation no crackles no wheezing Cardiac exam reveals regular heart sounds S1 and S2 no gallops no murmurs Abdomen is soft with mild diffuse tenderness mostly in the left lower quadrant Extremity exam reveals no edema no cyanosis or clubbing Neurological examination reveals no gross focal deficits - Labs CBC & Chem 7: 11/07/22 04:21 11/07/22 04:21 Labs: Abnormal Lab Results - Last 24 Hours (Table) 11/06/22 11/06/22 Range/Units 06:00 06:00 Plt Count 131 L (140-440) X 10*3/uL Lymphocytes # 0.69 L (0.90-5.00) X 10*3/uL C-Reactive Protein 1.20 H (0.00-0.80) mg/dL Albumin/Globulin Ratio 1.36 L (1.60-3.17) g/dL Assessment and Plan Plan: Abdominal pain with computed tomography scan concern of bacterial peritonitis patient was started on IV antibiotics and admitted to medical floor infectious disease consultation requested Liver cirrhosis with large ascites Underlying history of atrial flutter maintained on Eliquis Underlying history of hypothyroidism Underlying history of hypertension Underlying history of asthma Suspicion for a breast mass on computed tomography scan, patient will need follow-up mammogram as outpatient At this time patient is admitted to medical floor Continue with IV antibiotic Home medications reviewed and reordered , at this time will hold Eliquis in anticipation of paracentesis cardiology and infectious disease consultation requested Will follow closely
[2022-11-07 20:21] LABS: Appearance,BF Hazy
[2022-11-08] MEDS: SODIUM CHLORIDE 0.9% 1,000 ML IV SCH (01:26)
[2022-11-08] MEDS: LEVOTHYROXINE 75 MCG TAB PO SCH (07:00)
[2022-11-08] MEDS: HYDROmorphone 0.5 MG/0.5 ML SYRINGE IVP PRN ×2 (07:01→19:58)
[2022-11-08] MEDS: METOPROLOL TARTRATE 25 MG TAB PO SCH (07:50)
[2022-11-08] MEDS: FUROSEMIDE 20 MG TAB PO SCH (07:52)
[2022-11-08] MEDS: APIXABAN 5 MG TAB PO SCH ×2 (07:53→19:58)
--- NOTE | 2022-11-08 10:20 | P.PN ---
Subjective Progress Note Date: 11/08/22 ade Morales is a 42-year-old female, who presented to [facility] emergency room with a chief complaint of left lower quadrant abdominal pain that started at 3 PM on the day of presentation. She was evaluated in the emergency room vital examination on presentation revealed a temperature of 97.5 pulse 74 respiration 16 blood pressure 135/85 pulse ox 98% on room air Laboratory data revealed a white blood count of 4.3 hemoglobin 14.8 platelet count 124 sodium 136 potassium 4.3 chloride 101 CO2 24 BUN 21 creatinine 0.69 Testing in the emergency room revealed computed tomography scan of the abdomen and pelvis done in the emergency room revealed wall thickening of the small bowels with suspicion for spontaneous bacterial retune iritis and evidence of large volume abdominal and pelvic ascites. Patient was started on IV antibiotics and admitted to medical floor for further evaluation and treatment. Past medical history is significant for history of congenital heart disease, h istory of liver cirrhosis, history of atrial flutter, history of hypothyroidism, history of hypertension, history of asthma, and history of noncompliance with taking medications. On 11/06/2022 patient is alert and oriented 3. Patient reports some improvement with abdominal discomfort. Patient remains on IV Rocephin cardiology and interventional radiology consulted for possible paracentesis. Current vital signs temp 97.9, heart rate 58, blood pressure 92/61 with pulse ox 94% on room air. On 11/07/2022 patient was seen and examined on the medical floor she is alert and oriented 3 in no apparent distress she is still complaining of some abdominal discomfort otherwise she denies any complaints there is no fever or chills no headache or dizziness no chest pain no shortness of breath no cough no nausea or vomiting no abdominal pain no diarrhea no blood in the stools no burning with urination no frequency or urgency and no hematuria. Patient underwent paracentesis yesterday. At this time we are awaiting for culture results, she remains on IV Rocephin, infectious disease following. On 11/08/2022 patient is alert and oriented 3. Status post paracentesis. Patient remains on IV Rocephin. Patient reports improvement with abdominal pain has been tolerating diet. Current vital signs temp 97.5, heart rate 54, respiratory rate 18, blood pressure 91/59 with pulse ox 92% on room air Objective - Vital Signs Vital signs: Vital Signs Temp 97.5 F L 11/08/22 07:24 Pulse 54 L 11/08/22 07:24 Resp 18 11/08/22 07:24 BP 91/59 11/08/22 07:24 Pulse Ox 92 L 11/08/22 07:24 FiO2 Intake & Output 11/07/22 11/08/22 11/08/22 18:59 06:59 18:59 Intake Total 500 Balance 500 Intake: Oral 500 Other: # Voids 3 2 - Exam In general patient is alert and oriented x 3 in no distress HEENT head normocephalic and atraumatic Neck is supple no JVD no goiter no lymphadenopathy no carotid bruit Chest examination is clear to auscultation no crackles no wheezing Cardiac exam reveals regular heart sounds S1 and S2 no gallops no murmurs Abdomen is soft with mild diffuse tenderness mostly in the left lower quadrant Extremity exam reveals no edema no cyanosis or clubbing Neurological examination reveals no gross focal deficits - Labs CBC & Chem 7: 11/07/22 04:21 11/07/22 04:21 Labs: Microbiology - Last 24 Hours (Table) 11/05/22 00:50 Blood Culture - Preliminary Blood 11/05/22 10:22 Body Fluid Culture - Preliminary Paracentesis Fluid Assessment and Plan Assessment: Abdominal pain with computed tomography scan concern of bacterial peritonitis patient was started on IV antibiotics and admitted to medical floor infectious disease consultation requested Liver cirrhosis with large ascites Underlying history of atrial flutter maintained on Eliquis Underlying history of hypothyroidism Underlying history of hypertension Underlying history of asthma Suspicion for a breast mass on computed tomography scan, patient will need follow-up mammogram as outpatient At this time patient is admitted to medical floor Continue with IV antibiotic Status post paracentesis on 11/06/2022 Cultures currently pending cardiology and infectious disease consultation requested Will follow closely
--- NOTE | 2022-11-08 13:15 | P.PN ---
Subjective Progress Note Date: 11/08/22 ade Morales is a 42-year-old female, who presented to [facility] emergency room with a chief complaint of left lower quadrant abdominal pain that started at 3 PM on the day of presentation. She was evaluated in the emergency room vital examination on presentation revealed a temperature of 97.5 pulse 74 respiration 16 blood pressure 135/85 pulse ox 98% on room air Laboratory data revealed a white blood count of 4.3 hemoglobin 14.8 platelet count 124 sodium 136 potassium 4.3 chloride 101 CO2 24 BUN 21 creatinine 0.69 Testing in the emergency room revealed computed tomography scan of the abdomen and pelvis done in the emergency room revealed wall thickening of the small bowels with suspicion for spontaneous bacterial retune iritis and evidence of large volume abdominal and pelvic ascites. Patient was started on IV antibiotics and admitted to medical floor for further evaluation and treatment. Past medical history is significant for history of congenital heart disease, hi story of liver cirrhosis, history of atrial flutter, history of hypothyroidism, history of hypertension, history of asthma, and history of noncompliance with taking medications. On 11/06/2022 patient is alert and oriented 3. Patient reports some improvement with abdominal discomfort. Patient remains on IV Rocephin cardiology and interventional radiology consulted for possible paracentesis. C urrent vital signs temp 97.9, heart rate 58, blood pressure 92/61 with pulse ox 94% on room air. On 11/07/2022 patient was seen and examined on the medical floor she is alert and oriented 3 in no apparent distress she is still complaining of some abdominal discomfort otherwise she denies any complaints there is no fever or chills no headache or dizziness no chest pain no shortness of breath no cough no nausea or vomiting no abdominal pain no diarrhea no blood in the stools no burning with urination no frequency or urgency and no hematuria. Patient underwent paracentesis yesterday. At this time we are awaiting for culture results, she remains on IV Rocephin, infectious disease following. On 11/08/2022 patient is alert and oriented 3. Status post paracentesis. Patient remains on IV Rocephin. Patient reports improvement with abdominal pain has been tolerating diet. Current vital signs temp 97.5, heart rate 54, respiratory rate 18, blood pressure 91/59 with pulse ox 92% on room air Objective - Vital Signs Vital signs: Vital Signs Temp 97.5 F L 11/08/22 07:24 Pulse 54 L 11/08/22 07:24 Resp 18 11/08/22 07:24 BP 91/59 11/08/22 07:24 Pulse Ox 92 L 11/08/22 07:24 FiO2 Intake & Output 11/07/22 11/08/22 11/08/22 18:59 06:59 18:59 Intake Total 500 Balance 500 Intake: Oral 500 Other: # Voids 3 2 - Exam In general patient is alert and oriented x 3 in no distress HEENT head normocephalic and atraumatic Neck is supple no JVD no goiter no lymphadenopathy no carotid bruit Chest examination is clear to auscultation no crackles no wheezing Cardiac exam reveals regular heart sounds S1 and S2 no gallops no murmurs Abdomen is soft with mild diffuse tenderness mostly in the left lower quadrant Extremity exam reveals no edema no cyanosis or clubbing Neurological examination reveals no gross focal deficits - Labs CBC & Chem 7: 11/07/22 04:21 11/07/22 04:21 Labs: Microbiology - Last 24 Hours (Table) 11/05/22 10:22 Gram Stain - Preliminary Paracentesis Fluid Body Fluid Culture - Preliminary 11/05/22 00:50 Blood Culture - Preliminary Blood Assessment and Plan Plan: Abdominal pain with computed tomography scan concern of bacterial peritonitis patient was started on IV antibiotics and admitted to medical floor infectious disease consultation requested Liver cirrhosis with large ascites Underlying history of atrial flutter maintained on Eliquis Underlying history of hypothyroidism Underlying history of hypertension Underlying history of asthma Suspicion for a breast mass on computed tomography scan, patient will need follow-up mammogram as outpatient At this time patient is admitted to medical floor Continue with IV antibiotic Home medications reviewed and reordered , at this time will hold Eliquis in anticipation of paracentesis cardiology and infectious disease consultation requested Will follow closely
--- NOTE | 2022-11-08 16:17 | P.PN ---
Subjective Progress Note Date: 11/08/22 Principal diagnosis: Peritonitis Patient is a 42-year-old female with a past medical history significant for asthma atrial flutter hypothyroidism did have a history of ci rrhosis of the liver with the patient is attributing to hepatitis D, presented to the hospital abdominal pain patient did have a CT abdominal pelvis with evidence of peritoneal fluid and suspicious for SBP. The patient is status post ultrasound guided paracentesis completed on 11/06/2022 On today's evaluation that is 11/08/2022, the patient remains to be afebrile, the patient is breathing comfortably on room air, the patient denies having any chest pain or shortness of breath, the patient abdominal pain has decreased in intensity, denies any further nausea or vomiting and no diarrhea Objective - Vital Signs Vital signs: Vital Signs Temp 98.2 F 11/08/22 14:00 Pulse 75 11/08/22 14:00 Resp 17 11/08/22 14:00 BP 97/72 11/08/22 14:00 Pulse Ox 91 L 11/08/22 14:00 FiO2 Intake & Output 11/07/22 11/08/22 11/08/22 18:59 06:59 18:59 Intake Total 500 Balance 500 Intake: Oral 500 Other: # Voids 3 2 - Exam GENERAL DESCRIPTION: Middle-aged female lying in bed in no distress RESPIRATORY SYSTEM: Unlabored breathing , decreased breath sounds at bases HEART: S1 S2 regular rate and rhythm , ABDOMEN: Soft , mild tenderness EXTREMITIES: No edema feet - Labs CBC & Chem 7: 11/07/22 04:21 11/07/22 04:21 Labs: Microbiology - Last 24 Hours (Table) 11/05/22 10:22 Gram Stain - Preliminary Paracentesis Fluid Body Fluid Culture - Preliminary 11/05/22 00:50 Blood Culture - Preliminary Blood Assessment and Plan (1) SBP (spontaneous bacterial peritonitis) Current Visit: Yes Status: Acute Code(s): K65.2 - SPONTANEOUS BACTERIAL PERITONITIS SNOMED Code(s): 30306640 Plan: 1patient presented to hospital with acute abdominal pain in this patient who do have a history of cirrhosis of the liver and did have evidence of large volume ascites on the CT concerning for possible SBP patient however do not have any fever or elevated white count and no mention of any diverticulitis or colitis on the CT 2-patient is status post IR paracentesis and the fluid has been sent for cell count and differential along with culture, cell count was mildly elevated 127 cultures so far negative 3-Rocephin 2 g daily in view of clinical response and monitor clinical course closely Time with Patient: Less than 30
[2022-11-08] MEDS: LACTULOSE 20 GM/30 ML CUP PO SCH (19:56)
[2022-11-09] MEDS: SODIUM CHLORIDE 0.9% 1,000 ML IV SCH (01:13)
[2022-11-09] MEDS: LEVOTHYROXINE 75 MCG TAB PO SCH (05:42)
[2022-11-09] MEDS: HYDROmorphone 0.5 MG/0.5 ML SYRINGE IVP PRN ×2 (05:43→22:50)
--- NOTE | 2022-11-09 08:20 | P.CRDCN ---
History of Present Illness Consult date: 11/08/22 Requesting physician: Devaughn Marino Reason for Consult (text): congenital heart disease Chief complaint: abdominal distention/pain History of present illness: This is a Pleasant 42-year-old female patient who follows with Dr. Perez at [facility]. 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 S he also has a history of atrial flutter and liver cirrhosis. According to her she last saw her chair finisher September 21 of this year and things were stable at that point and she'll be scheduled again to see him in April. She presented this admission with mostly complains of abdominal bloating, distention and pain. We were asked to see the patient in consultation due to her history of congenital heart disease. Computed tomography scan on admission showed suspected left breast mass and recommended outpatient mammogram for further evaluation, wall thickening of the small bowel correlate for spontaneous bacterial peritonitis, hepatic cirrhosis with large volume abdominal and pelvic ascites as well as splenomegaly. Pressures disease has been placed on consult and she is on IV ceftriaxone. She underwent paracentesis on 11/06/2022 with approximate 4.3 L of straw-colored fluid removed. She is overall feeling better. Her abdomen is much softer and much less distended. She denies further complaints of abdominal discomfort. Her breathing has been stable. She does have occasional palpitations at home but brief. She is on metoprolol as well as anticoagulation. She verbalizes compliance with her medications. She denies any lower extremity edema, orthopnea or PND. 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 7, Past Anesthesia/Blood Transfusion Reactions: Previous Problems w/ Anesthesia Additional Past Anesthesia/Blood Transfusion Reaction / Comment(s): Patient states she is allergic to anesthesia during 2018 heart cath -- had numbness in right face and left hand, states anesthesiologists indicated if next procedure, would have to be adjusted Past Psychological History: No Psychological Hx Reported Smoking Status: Never smoker Past Alcohol Use History: None Reported Past Drug Use History: None Reported - Past Family History Mother Family Medical History: Asthma, Cancer, Hyperlipidemia, Hypertension Additional Family Medical History / Comment(s): Mother had breast CA at age 52 Brother(s) Family Medical History: Asthma Father Family Medical History: Asthma Medications and Allergies Home Medications Medication Instructions Recorded Confirmed Type Nitroglycerin Sl Tabs [Nitrostat] 0.4 mg SUBLINGUAL Q5M PRN tab 12/28/20 11/04/22 Rx Ibuprofen [Motrin] 800 mg PO Q8H PRN 06/08/21 11/04/22 History Apixaban [Eliquis] 5 mg PO BID #60 tab 06/09/21 11/04/22 Rx Furosemide [Lasix] 20 mg PO DAILY 30 Days #30 tab 06/11/21 11/04/22 Rx Metoprolol Tartrate 25 mg PO DAILY 30 Days #30 tab 06/11/21 11/04/22 Rx Albuterol Inhaler [Ventolin Hfa 2 puff INHALATION RT-Q6H PRN 11/04/22 11/04/22 History Inhaler] Levothyroxine Sodium [Synthroid] 75 mcg PO DAILY 11/04/22 11/04/22 History Allergies Allergy/AdvReac Type Severity Reaction Status Date / Time warfarin sodium Allergy Anaphylaxis Verified 11/04/22 22:36 [From Coumadin] peas AdvReac Diarrhea Verified 11/04/22 22:36 Physical Exam Vitals: Vital Signs Temp Pulse Resp BP Pulse Ox 11/08/22 07:24 97.5 F L 54 L 18 91/59 92 L 11/08/22 01:12 97.4 F L 63 16 90/60 92 L 11/07/22 20:09 97.4 F L 59 L 16 97/67 92 L 11/07/22 14:08 97.9 F 64 18 103/65 95 Intake and Output 11/07/22 11/08/22 11/08/22 22:59 06:59 14:59 Intake Total 300 Balance 300 Intake: Oral 300 Other: # Voids 3 2 PHYSICAL EXAMINATION: This is a 42-year-old female in no apparent distress at the time of my examination. HEENT: Head is atraumatic, normocephalic. Pupils are equal, round. Sclerae anicteric. Conjunctivae are clear. Mucous membranes of the mouth are moist. Neck is supple. There is no elevated jugular venous pressure. No carotid bruit is heard. CHEST EXAMINATION: Clear to auscultation bilaterally. No wheezes rales or rhonchi. Respirations even and nonlabored. HEART EXAMINATION: Heart regular, positive S1 and S2. with systolic murmur. ABDOMEN: Soft, nontender. Bowel sounds are heard. No organomegaly noted. EXTREMITIES: 2+ peripheral pulses with no evidence of peripheral edema and no calf tenderness noted. NEUROLOGIC EXAMINATION: Patient is awake, alert and oriented x3. Results 11/07/22 04:21 11/07/22 04:21 Current Medications Generic Name Dose Route Start Last Admin Trade Name Freq PRN Reason Stop Dose Admin Albuterol Sulfate 2.5 mg 11/05/22 07:53 Albuterol Nebulized 2.5 Mg/3 Ml INHALATION RT-Q6H PRN Shortness Of Breath Apixaban 5 mg 11/05/22 09:00 11/08/22 07:53 Apixaban 5 Mg Tab PO 5 mg BID PIOTR Administration Protocol Furosemide 20 mg 11/05/22 09:00 11/08/22 07:52 Furosemide 20 Mg Tab PO 20 mg DAILY PIOTR Administration Hydromorphone HCl 0.5 mg 11/05/22 03:15 11/08/22 07:01 Hydromorphone 0.5 Mg/0.5 Ml Syringe IVP 0.5 mg Q3HR PRN Administration Pain Sodium Chloride 1,000 mls @ 20 mls/hr 11/05/22 01:00 11/08/22 01:26 Saline 0.9% IV Not Given .Q24H PIOTR Ceftriaxone Sodium 2 gm/ 50 mls @ 100 mls/hr 11/06/22 09:00 11/08/22 07:52 Sodium Chloride IVPB 100 mls/hr Q24HR PIOTR Administration Protocol Levothyroxine Sodium 75 mcg 11/05/22 09:00 11/08/22 07:00 Levothyroxine 75 Mcg Tab PO 75 mcg DAILY@0630 PIOTR Administration Metoprolol Tartrate 25 mg 11/05/22 09:00 11/08/22 07:50 Metoprolol Tartrate 25 Mg Tab PO Not Given DAILY [facility] Naloxone HCl 0.2 mg 11/05/22 00:54 Naloxone 0.4 Mg/Ml 1 Ml Vial IV Q2M PRN Opioid Reversal Nitroglycerin 0.4 mg 11/05/22 07:53 Nitroglycerin Sl Tabs 0.4 Mg Tab SUBLINGUAL Q5M PRN Chest Pain Intake and Output 11/07/22 11/08/22 11/08/22 22:59 06:59 14:59 Intake Total 300 Balance 300 Intake: Oral 300 Other: # Voids 3 2 11/07/22 04:21 11/07/22 04:21 EKG Interpretations (text) Sinus Rhythm Assessment and Plan Assessment: #[address] showing possible spontaneous bacterial peritonitis, s/p paracentesis, improved #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 Perez at [facility] #3 atrial flutter, anticoagulated, maintaining sinus mechanism Plan: From cardiology's perspective [facility] Dr. Sonal dennis. Depending on the results further recommendations will be made but likely patient will no require further cardiac work-up as in inpatient. STAMP PAD FINISHER note has been reviewed, I agree with a documented findings and plan of care. Patient was seen and examined.
[2022-11-09 08:56] LABS: Basophils # (A) 0.06 X 10*3/uL (0.00-0.10); Basophils % (A) 1.2 %; Eosinophils # (A) 0.19 X 10*3/uL (0.04-0.35); Eosinophils % (A) 3.9 %; HCT 47.4 % (37.2-46.3); HGB 15.2 g/dL (12.0-15.0); Immature Grans, Automated 0 %; Lymphocytes # (A) 0.74 X 10*3/uL (0.90-5.00); Lymphocytes % (A) 15.3 %; MCH 27.4 pg (27.0-32.0); MCHC 32.1 g/dL (32.0-37.0); MCV 85.4 fL (80.0-97.0); Monocytes # (A) 0.48 X 10*3/uL (0.20-1.00); Monocytes % (A) 9.9 %; NRBC Per 100 WBC 0 /100 WBCS (0.0-0.0); Neutrophils # (A) 3.37 X 10*3/uL (1.80-7.70); Neutrophils % (A) 69.7 %; Platelet Count 152 X 10*3/uL (140-440); RBC 5.55 X 10*6/uL (4.10-5.20); RDW 13.7 % (11.5-14.5); WBC 4.84 X 10*3/uL (4.50-10.00)
[2022-11-09] MEDS: METOPROLOL TARTRATE 25 MG TAB PO SCH (08:56)
[2022-11-09] MEDS: APIXABAN 5 MG TAB PO SCH ×2 (08:56→19:40)
[2022-11-09] MEDS: LACTULOSE 20 GM/30 ML CUP PO SCH ×2 (08:57→19:41)
[2022-11-09] MEDS: FUROSEMIDE 20 MG TAB PO SCH (08:57)
[2022-11-09 10:19] LABS: African American GFR (CKD) 91.4 (60.0-200.0); Albumin 4.1 g/dL (3.8-4.9); Albumin/Globulin Ratio 1.32 (1.60-3.17); BUN/Creat Ratio 16.22 Ratio (12.00-20.00); Blood Urea Nitrogen 14.6 mg/dL (9.0-27.0); Calcium 9.4 mg/dL (8.7-10.3); Globulin 3.1 g/dL (1.6-3.3); Non-African American GFR(CKD) 78.9 (60.0-200.0); Potassium 4.3 mmol/L (3.5-5.5); Total Bilirubin 0.4 mg/dL (0.30-1.20); Total Protein 7.2 g/dL (6.2-8.2)
--- NOTE | 2022-11-09 10:31 | P.PN ---
Subjective Progress Note Date: 11/09/22 HISTORY OF PRESENT ILLNESS: 10/09/2022 This is a Pleasant 42-year-old female patient who follows with Dr. Perez at [facility]. 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 She also has a history of atrial flutter and liver cirrhosis. According to her she last saw her membership correspondent September 21 of this year and things were stable at that point and she'll be scheduled again to see him in April. She presented this admission with mostly complains of abdominal bloating, distention and pain. We were asked to see the patient in consultation due to her history of congenital heart disease. Computed tomography scan on admission showed suspected left breast mass and recommended outpatient mammogram for further evaluation, wall thickening of the small bowel correlate for spontaneous bacterial peritonitis, hepatic cirrhosis with large volume abdominal and pelvic ascites as well as splenomegaly. Pressures disease has been placed on consult and she is on IV ceftriaxone. She underwent paracentesis on 11/06/2022 with approximate 4.3 L of straw-colored fluid removed. She is overall feeling better. Her abdomen is much softer and much less distended. She denies further complaints of abdominal discomfort. Her breathing has been stable. She does have occasional palpitations at home but brief. She is on metoprolol as well as anticoagulation. She verbalizes compliance with her medications. She denies any lower extremity edema, orthopnea or PND. 11/09/2022 Patient examined this morning at the bedside. Patient denies chest pain or pressure. She denies shortness of breath. She is status post paracentesis on 11/06/2022 with removal of 4.3 L. PHYSICAL EXAM: VITAL SIGNS: Reviewed. GENERAL: Well-developed in no acute distress. NECK: Supple. No JVD or thyromegaly LUNGS: Respirations even and unlabored. Lungs essentially clear to auscultation bilaterally. HEART: Regular rate and rhythm. S1 and S2 heard. EXTREMITIES: Normal range of motion. No clubbing or cyanosis. Peripheral pulses intact. No lower extremity edema ASSESSMENT: Abdominal discomfort with CT showing possible spontaneous bacterial peritonitis, s/p paracentesis, improved Tricuspid atresia and hypoplastic RV s/p Fontan, followed by Dr. Perez at [facility] History of paroxysmal atrial flutter, unknown if typical or atypical, an ticoagulated, maintaining sinus mechanism PLAN: Continue current cardiac medications Patient is stable from a cardiac standpoint No further inpatient recommendations from a cardiology perspective Recommend outpatient follow-up with her primary membership correspondent at [facility] We will sign off. Please reconsult if needed. Nurse practitioner note has been reviewed by physician. Signing provider agrees with the documented findings, assessment, and plan of care. Objective - Vital Signs Vital signs: Vital Signs Temp 97.9 F 11/09/22 07:43 Pulse 71 11/09/22 07:43 Resp 15 11/09/22 07:43 BP 104/69 11/09/22 07:43 Pulse Ox 100 11/09/22 07:43 FiO2 Intake & Output 11/08/22 11/09/22 11/09/22 18:59 06:59 18:59 Other: # Voids 4 2 - Labs CBC & Chem 7: 11/09/22 05:30 11/09/22 05:30 Labs: Abnormal Lab Results - Last 24 Hours (Table) 11/09/22 11/09/22 Range/Units 05:30 05:30 RBC 5.55 H (4.10-5.20) X 10*6/uL Hgb 15.2 H (12.0-15.0) g/dL Hct 47.4 H (37.2-46.3) % Lymphocytes # 0.74 L (0.90-5.00) X 10*3/uL Albumin/Globulin Ratio 1.32 L (1.60-3.17) g/dL Microbiology - Last 24 Hours (Table) 11/05/22 10:22 Gram Stain - Preliminary Paracentesis Fluid Body Fluid Culture - Preliminary 11/05/22 00:50 Blood Culture - Preliminary Blood
--- NOTE | 2022-11-09 11:29 | P.PN ---
Subjective Progress Note Date: 11/09/22 Principal diagnosis: Peritonitis Patient is a 42-year-old female with a past medical history significant for asthma atrial flutter hypothyroidism did have a history of ci rrhosis of the liver with the patient is attributing to hepatitis D, presented to the hospital abdominal pain patient did have a CT abdominal pelvis with evidence of peritoneal fluid and suspicious for SBP. The patient is status post ultrasound guided paracentesis completed on 11/06/2022 On today's evaluation that is 11/09/2022, the patient continues to be afebrile, the patient is breathing comfortably on room air, the patient denies having any chest pain or shortness of breath, the patient abdominal pain has decreased in intensity, the patient denies any further nausea or vomiting and no diarrhea Objective - Vital Signs Vital signs: Vital Signs Temp 97.9 F 11/09/22 07:43 Pulse 71 11/09/22 07:43 Resp 15 11/09/22 07:43 BP 104/69 11/09/22 07:43 Pulse Ox 100 11/09/22 07:43 FiO2 Intake & Output 11/08/22 11/09/22 11/09/22 18:59 06:59 18:59 Other: # Voids 4 2 - Exam GENERAL DESCRIPTION: Middle-aged female lying in bed in no distress RESPIRATORY SYSTEM: Unlabored breathing , decreased breath sounds at bases HEART: S1 S2 regular rate and rhythm , ABDOMEN: Soft , mild tenderness EXTREMITIES: No edema feet - Labs CBC & Chem 7: 11/09/22 05:30 11/09/22 05:30 Labs: Abnormal Lab Results - Last 24 Hours (Table) 11/09/22 11/09/22 Range/Units 05:30 05:30 RBC 5.55 H (4.10-5.20) X 10*6/uL Hgb 15.2 H (12.0-15.0) g/dL Hct 47.4 H (37.2-46.3) % Lymphocytes # 0.74 L (0.90-5.00) X 10*3/uL Albumin/Globulin Ratio 1.32 L (1.60-3.17) g/dL Microbiology - Last 24 Hours (Table) 11/05/22 10:22 Gram Stain - Preliminary Paracentesis Fluid Body Fluid Culture - Preliminary 11/05/22 00:50 Blood Culture - Preliminary Blood Assessment and Plan (1) SBP (spontaneous bacterial peritonitis) Current Visit: Yes Status: Acute Code(s): K65.2 - SPONTANEOUS BACTERIAL PERITONITIS SNOMED Code(s): 89477379 Plan: 1patient presented to hospital with acute abdominal pain in this patient who do have a history of cirrhosis of the liver and did have evidence of large volume ascites on the CT concerning for possible SBP patient however do not have any fever or elevated white count and no mention of any diverticulitis or colitis on the CT 2-patient is status post IR paracentesis and the fluid has been sent for cell count and differential along with culture, cell count was mildly elevated 127 cultures so far negative 3-patient seemed to have shown clinical improvement with Rocephin 2 g daily , consider short course of oral Ceftin on discharge Time with Patient: Less than 30
[2022-11-10] MEDS: SODIUM CHLORIDE 0.9% 1,000 ML IV SCH (01:24)
[2022-11-10] MEDS: LEVOTHYROXINE 75 MCG TAB PO SCH (06:45)
[2022-11-10] MEDS: METOPROLOL TARTRATE 25 MG TAB PO SCH (07:41)
[2022-11-10] MEDS: FUROSEMIDE 20 MG TAB PO SCH (07:41)
[2022-11-10] MEDS: APIXABAN 5 MG TAB PO SCH (07:41)
[2022-11-10] MEDS: LACTULOSE 20 GM/30 ML CUP PO SCH (07:41)
[2022-11-10 08:00] VITALS: RESP 16
--- NOTE | 2022-11-10 12:22 | P.PN ---
Subjective Progress Note Date: 11/10/22 Principal diagnosis: Peritonitis Patient is a 42-year-old female with a past medical history significant for asthma atrial flutter hypothyroidism did have a history of ci rrhosis of the liver with the patient is attributing to hepatitis D, presented to the hospital abdominal pain patient did have a CT abdominal pelvis with evidence of peritoneal fluid and suspicious for SBP. The patient is status post ultrasound guided paracentesis completed on 11/06/2022 On today's evaluation that is 11/10/2022, the patient remains to be afebrile, the patient is breathing comfortably on room air, the patient denies chest pain or shortness of breath, the patient abdominal pain has resolved, the patient denies any further nausea or vomiting and no diarrhea Objective - Vital Signs Vital signs: Vital Signs Temp 97.7 F 11/10/22 07:15 Pulse 49 L 11/10/22 07:15 Resp 16 11/10/22 07:15 BP 92/66 11/10/22 07:15 Pulse Ox 96 11/10/22 07:15 FiO2 Intake & Output 11/09/22 11/10/22 11/10/22 18:59 06:59 18:59 Other: # Voids 3 2 1 - Exam GENERAL DESCRIPTION: Middle-aged female lying in bed in no distress RESPIRATORY SYSTEM: Unlabored breathing , decreased breath sounds at bases HEART: S1 S2 regular rate and rhythm , ABDOMEN: Soft , mild tenderness EXTREMITIES: No edema feet - Labs CBC & Chem 7: 11/09/22 05:30 11/09/22 05:30 Labs: Microbiology - Last 24 Hours (Table) 11/05/22 00:50 Blood Culture - Preliminary Blood 11/05/22 10:22 Gram Stain - Preliminary Paracentesis Fluid Body Fluid Culture - Preliminary Assessment and Plan (1) Abnormal CT of the abdomen Current Visit: Yes Status: Acute Code(s): R93.5 - ABN FINDINGS ON DX IMAGING OF ABD REGIONS, INC RETROPERITON SNOMED Code(s): 91750672577531394 (2) SBP (spontaneous bacterial peritonitis) Current Visit: Yes Status: Acute Code(s): K65.2 - SPONTANEOUS BACTERIAL PERITONITIS SNOMED Code(s): 05512783 Plan: 1patient presented to hospital with acute abdominal pain in this patient who do have a history of cirrhosis of the liver and did have evidence of large volume ascites on the CT concerning for possible SBP patient however do not have any fever or elevated white count and no mention of any diverticulitis or colitis on the CT 2-patient is status post IR paracentesis and the fluid has been sent for cell count and differential along with culture, cell count was mildly elevated 127 cultures so far negative 3-the patient seemed to have shown clinical improvement on Rocephin finishing therapy with oral Ceftin 7 days and close patient follow-up Time with Patient: Less than 30
[2022-11-10 13:49] VITALS: BP 103/71; PULSE 67; TEMP 98.6
--- NOTE | 2022-11-10 15:08 | P.PN ---
Subjective Progress Note Date: 11/09/22 ade Morales is a 42-year-old female, who presented to [facility] emergency room with a chief complaint of left lower quadrant abdominal pain that started at 3 PM on the day of presentation. She was evaluated in the emergency room vital examination on presentation revealed a temperature of 97.5 pulse 74 respiration 16 blood pressure 135/85 pulse ox 98% on room air Laboratory data revealed a white blood count of 4.3 hemoglobin 14.8 platelet count 124 sodium 136 potassium 4.3 chloride 101 CO2 24 BUN 21 creatinine 0.69 Testing in the emergency room revealed computed tomography scan of the abdomen and pelvis done in the emergency room revealed wall thickening of the small bowels with suspicion for spontaneous bacterial retune iritis and evidence of large volume abdominal and pelvic ascites. Patient was started on IV antibiotics and admitted to medical floor for further evaluation and treatment. Past medical history is significant for history of congenital heart disease, hi story of liver cirrhosis, history of atrial flutter, history of hypothyroidism, history of hypertension, history of asthma, and history of noncompliance with taking medications. On 11/06/2022 patient is alert and oriented 3. Patient reports some improvement with abdominal discomfort. Patient remains on IV Rocephin cardiology and interventional radiology consulted for possible paracentesis. C urrent vital signs temp 97.9, heart rate 58, blood pressure 92/61 with pulse ox 94% on room air. On 11/07/2022 patient was seen and examined on the medical floor she is alert and oriented 3 in no apparent distress she is still complaining of some abdominal discomfort otherwise she denies any complaints there is no fever or chills no headache or dizziness no chest pain no shortness of breath no cough no nausea or vomiting no abdominal pain no diarrhea no blood in the stools no burning with urination no frequency or urgency and no hematuria. Patient underwent paracentesis yesterday. At this time we are awaiting for culture results, she remains on IV Rocephin, infectious disease following. On 11/08/2022 patient is alert and oriented 3. Status post paracentesis. Patient remains on IV Rocephin. Patient reports improvement with abdominal pain has been tolerating diet. Current vital signs temp 97.5, heart rate 54, respiratory rate 18, blood pressure 91/59 with pulse ox 92% on room air On 11/09/2022 patient is alert and oriented 3. Status post paracentesis. Patient remains on IV Rocephin. Patient reports improvement with abdominal pain has been tolerating diet. Current vital signs temp 97.5, heart rate 54, respiratory rate 18, blood pressure 91/59 with pulse ox 92% on room air. patient is improving gradually possible discharge to home in the next 1-2 days Objective - Vital Signs Vital signs: Vital Signs Temp 98.3 F 11/09/22 14:08 Pulse 51 L 11/09/22 14:08 Resp 14 11/09/22 14:08 BP 91/61 11/09/22 14:08 Pulse Ox 94 L 11/09/22 14:08 FiO2 Intake & Output 11/08/22 11/09/22 11/09/22 18:59 06:59 18:59 Other: # Voids 4 2 3 - Exam In general patient is alert and oriented x 3 in no distress HEENT head normocephalic and atraumatic Neck is supple no JVD no goiter no lymphadenopathy no carotid bruit Chest examination is clear to auscultation no crackles no wheezing Cardiac exam reveals regular heart sounds S1 and S2 no gallops no murmurs Abdomen is soft with mild diffuse tenderness mostly in the left lower quadrant Extremity exam reveals no edema no cyanosis or clubbing Neurological examination reveals no gross focal deficits - Labs CBC & Chem 7: 11/09/22 05:30 11/09/22 05:30 Labs: Abnormal Lab Results - Last 24 Hours (Table) 11/09/22 11/09/22 Range/Units 05:30 05:30 RBC 5.55 H (4.10-5.20) X 10*6/uL Hgb 15.2 H (12.0-15.0) g/dL Hct 47.4 H (37.2-46.3) % Lymphocytes # 0.74 L (0.90-5.00) X 10*3/uL Albumin/Globulin Ratio 1.32 L (1.60-3.17) g/dL Microbiology - Last 24 Hours (Table) 11/05/22 10:22 Gram Stain - Preliminary Paracentesis Fluid Body Fluid Culture - Preliminary 11/05/22 00:50 Blood Culture - Preliminary Blood Assessment and Plan Plan: Abdominal pain with computed tomography scan concern of bacterial peritonitis patient was started on IV antibiotics and admitted to medical floor infectious disease consultation requested Liver cirrhosis with large ascites Underlying history of atrial flutter maintained on Eliquis Underlying history of hypothyroidism Underlying history of hypertension Underlying history of asthma Suspicion for a breast mass on computed tomography scan, patient will need follow-up mammogram as outpatient At this time patient is admitted to medical floor Continue with IV antibiotic Home medications reviewed and reordered , at this time will hold Eliquis in anticipation of paracentesis cardiology and infectious disease consultation requested Will follow closely
--- NOTE | 2022-11-10 15:18 | P.DS ---
Providers Date of admission: 11/05/22 00:54 Expected date of discharge: 11/10/22 Attending physician: Devaughn Marino Consults: 11/05/22 00:43 Consult Physician Routine Consulting Provider: Zachary Theodore Consult Reason/Comments: SBP Do you want consulting provider notified?: Yes Primary care physician: Devaughn [facility] Course: Diagnosis on discharge: Abdominal pain with computed tomography scan concern of bacterial peritonitis patient was started on IV antibiotics and admitted to medical floor infectious disease consultation requested Liver cirrhosis with large ascites Underlying history of atrial flutter maintained on Eliquis Underlying history of hypothyroidism Underlying history of hypertension Underlying history of asthma Suspicion for a breast mass on computed tomography scan, patient will need follow-up mammogram as outpatient Hospital course: Asuncion Rizzo, he is a 42-year-old female, who presented to [facility] emergency room with a chief complaint of left lower quadrant abdominal pain that started at 3 PM on the day of presentation. She was evaluated in the emergency room vital examination on presentation revealed a temperature of 97.5 pulse 74 respiration 16 blood pressure 135/85 pulse ox 98% on room air Laboratory data revealed a white blood count of 4.3 hemoglobin 14.8 platelet count 124 sodium 136 potassium 4.3 chloride 101 CO2 24 BUN 21 creatinine 0.69 Testing in the emergency room revealed computed tomography scan of the abdomen and pelvis done in the emergency room revealed wall thickening of the small bowels with suspicion for spontaneous bacterial retune iritis and evidence of large volume abdominal and pelvic ascites. Patient was started on IV antibiotics and admitted to medical floor for further evaluation and treatment. Past medical history is significant for history of congenital heart disease, history of liver cirrhosis, history of atrial flutter, history of hypothyroidism, history of hypertension, history of asthma, and history of noncompliance with taking medications. On 11/06/2022 patient is alert and oriented 3. Patient reports some improvement with abdominal discomfort. Patient remains on IV Rocephin cardiology and interventional radiology consulted for possible paracentesis. Current vital signs temp 97.9, heart rate 58, blood pressure 92/61 with pulse ox 94% on room air. On 11/07/2022 patient was seen and examined on the medical floor she is alert and oriented 3 in no apparent distress she is still complaining of some abdominal discomfort otherwise she denies any complaints there is no fever or chills no headache or dizziness no chest pain no shortness of breath no cough no nausea or vomiting no abdominal pain no diarrhea no blood in the stools no burning with urination no frequency or urgency and no hematuria. Patient underwent paracentesis yesterday. At this time we are awaiting for culture results, she remains on IV Rocephin, infectious disease following. On 11/08/2022 patient is alert and oriented 3. Status post paracentesis. Patient remains on IV Rocephin. Patient reports improvement with abdominal pain has been tolerating diet. Current vital signs temp 97.5, heart rate 54, respiratory rate 18, blood pressure 91/59 with pulse ox 92% on room air On 11/09/2022 patient is alert and oriented 3. Status post paracentesis. Patient remains on IV Rocephin. Patient reports improvement with abdominal pain has been tolerating diet. Current vital signs temp 97.5, heart rate 54, respiratory rate 18, blood pressure 91/59 with pulse ox 92% on room air. patient is improving gradually possible discharge to home in the next 1-2 days Patient Condition at Discharge: Fair Plan - Discharge Summary New Discharge Prescriptions: New cefUROXime axetiL [Cefuroxime] 500 mg PO BID 7 Days #14 tab Continue Nitroglycerin Sl Tabs [Nitrostat] 0.4 mg SUBLINGUAL Q5M PRN tab PRN Reason: Chest Pain Apixaban [Eliquis] 5 mg PO BID #60 tab Furosemide [Lasix] 20 mg PO DAILY 30 Days #30 tab Metoprolol Tartrate 25 mg PO DAILY 30 Days #30 tab Levothyroxine Sodium [Synthroid] 75 mcg PO DAILY Albuterol Inhaler [Ventolin Hfa Inhaler] 2 puff INHALATION RT-Q6H PRN PRN Reason: Shortness Of Breath Discontinued Ibuprofen [Motrin] 800 mg PO Q8H PRN PRN Reason: Pain Or Fever > 100.5 Discharge Medication List Nitroglycerin Sl Tabs [Nitrostat] 0.4 mg SUBLINGUAL Q5M PRN tab 12/28/20 [Rx] Apixaban [Eliquis] 5 mg PO BID #60 tab 06/09/21 [Rx] Furosemide [Lasix] 20 mg PO DAILY 30 Days #30 tab 06/11/21 [Rx] Metoprolol Tartrate 25 mg PO DAILY 30 Days #30 tab 06/11/21 [Rx] Albuterol Inhaler [Ventolin Hfa Inhaler] 2 puff INHALATION RT-Q6H PRN 11/04/22 [History] Levothyroxine Sodium [Synthroid] 75 mcg PO DAILY 11/04/22 [History] cefUROXime axetiL [Cefuroxime] 500 mg PO BID 7 Days #14 tab 11/10/22 [Rx] Follow up Appointment(s)/Referral(s): Devaughn Marino MD [Primary Care Provider] - 1-2 days
== END 2022-11-10 15:40 | disposition home or self-care (01) | DRG 248 ==
LOC: EC 21:42 → 4SSUR 11-05 00:54
PROVIDERS: ADMIT Internal Medicine; ATTEND Internal Medicine
PROC: 0W9G3ZZ Drainage of Peritoneal Cavity, Percutaneous Approach (ICD-10-PCS; principal; 2022-11-06)
DX: K65.2 Spontaneous bacterial peritonitis (principal); I25.10 Atherosclerotic heart disease of native coronary artery without angina pectoris; K72.10 Chronic hepatic failure without coma; R18.8 Other ascites; K74.69 Other cirrhosis of liver; E03.9 Hypothyroidism, unspecified; I10 Essential (primary) hypertension; I48.92 Unspecified atrial flutter; R16.1 Splenomegaly, not elsewhere classified; J45.909 Unspecified asthma, uncomplicated; K59.00 Constipation, unspecified; Z91.148 Patient's other noncompliance with medication regimen for other reason; Z88.8 Allergy status to other drugs, medicaments and biological substances; Q22.4 Congenital tricuspid stenosis; Z79.01 Long term (current) use of anticoagulants; Z79.899 Other long term (current) drug therapy; Z95.1 Presence of aortocoronary bypass graft; Z79.890 Hormone replacement therapy
CPT/HCPCS: 36415; 49083; 71046; 74177; 80053; 81001; 81025; 82140; 82248; 83605; 83690; 83735; 83880; 84484; 85025; 85610; 85730; 86140; 86708; 86803; 87070; 87205; 87340; 89050; 93005; 94760; 96374; 99285

== ENCOUNTER 2022-12-23 04:01 | Emergency (ER) | payer OTHER ==
--- NOTE | 2022-12-23 07:05 | ED ---
ENT HPI - General Chief complaint: Upper Respiratory Infection Stated complaint: Cough, cramps Time Seen by Provider: 12/23/22 06:31 Source: patient, RN notes reviewed Mode of arrival: ambulatory Limitations: no limitations - History of Present Illness Initial comments: This is a 42-year-old female who presents to the emergency department for coughing and congestion. States that this started about 6 days ago. However, she was in [place] shortly before this and symptoms felt similar. This improved for a couple of days. She then seemed to get sick again. Denies any fevers or chills. She does report headaches. She threw up twice, but has not thrown up in several days. She has tried [id number] cough medication, but is unsure if this has been effective. Her mother is being evaluated in the emergency department as well for the same symptoms. Please see downtime notes for additional history and information. Denies any fevers, chills, sore throat, dyspnea, chest pain, palpitations, abdominal pain, nausea, diarrhea, or back pain. MD complaint: other (Cough, congestion) - Related Data Home Medications Medication Instructions Recorded Confirmed Albuterol Inhaler [Ventolin Hfa 2 puff INHALATION RT-Q6H PRN 11/04/22 11/04/22 Inhaler] Levothyroxine Sodium [Synthroid] 75 mcg PO DAILY 11/04/22 11/04/22 Previous Rx's Medication Instructions Recorded Nitroglycerin Sl Tabs [Nitrostat] 0.4 mg SUBLINGUAL Q5M PRN tab 12/28/20 Apixaban [Eliquis] 5 mg PO BID #60 tab 06/09/21 Furosemide [Lasix] 20 mg PO DAILY 30 Days #30 tab 06/11/21 Metoprolol Tartrate 25 mg PO DAILY 30 Days #30 tab 06/11/21 cefUROXime axetiL [Cefuroxime] 500 mg PO BID 7 Days #14 tab 11/10/22 Albuterol Inhaler [Ventolin Hfa 1 - 2 puff INHALATION Q6H PRN #1 12/23/22 Inhaler] each guaiFENesin [Mucinex] 1,200 mg PO BID PRN #20 tab 12/23/22 predniSONE 50 mg PO DAILY 5 Days #5 tablet 12/23/22 Allergies Allergy/AdvReac Type Severity Reaction Status Date / Time warfarin sodium Allergy Anaphylaxis Verified 11/04/22 22:36 [From Coumadin] peas AdvReac Diarrhea Verified 11/04/22 22:36 Review of Systems ROS Statement: Those systems with pertinent positive or pertinent negative responses have been documented in the HPI. ROS Other: All systems not noted in ROS Statement are negative. 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 7, Past Anesthesia/Blood Transfusion Reactions: Previous Problems w/ Anesthesia Additional Past Anesthesia/Blood Transfusion Reaction / Comment(s): Patient states she is allergic to anesthesia during 2018 heart cath -- had numbness in right face and left hand, states anesthesiologists indicated if next procedure, would have to be adjusted Past Psychological History: No Psychological Hx Reported Smoking Status: Never smoker Past Alcohol Use History: None Reported Past Drug Use History: None Reported - Past Family History Mother Family Medical History: Asthma, Cancer, Hyperlipidemia, Hypertension Additional Family Medical History / Comment(s): Mother had breast CA at age 52 Brother(s) Family Medical History: Asthma Father Family Medical History: Asthma General Exam Limitations: no limitations General appearance: alert, in no apparent distress Head exam: Present: atraumatic, normocephalic, normal inspection Respiratory exam: Present: normal lung sounds bilaterally. Absent: respiratory distress, wheezes, rales, rhonchi, stridor Cardiovascular Exam: Present: regular rate, normal rhythm, normal heart sounds. Absent: systolic murmur, diastolic murmur, rubs, gallop, clicks Neurological exam: Present: alert, oriented X3, CN II-XII intact Psychiatric exam: Present: normal affect, normal mood Skin exam: Present: warm, dry, intact, normal color. Absent: rash Course Vital Signs 12/23/22 08:46 Temperature 98.2 F Pulse Rate 72 Respiratory 18 Rate Blood Pressure 116/68 O2 Sat by Pulse 98 Oximetry Medical Decision Making - Medical Decision Making This is a 42-year-old female who presents to the emergency department for coughing and congestion. Was pt. sent in by a medical professional or institution? @ -No Did you speak to anyone other than the patient for history? @ -No Did you review nursing and triage notes? @ -Yes, and I agree, it is accurate with regards to the patient's symptoms. Were old charts reviewed? @ -No Differential Diagnosis? @ -Differential Cough: Influenza, Covid, RSV, croup, allergic rhinitis, GERD, pneumonia, bronchitis, COPD, viral pharyngitis, streptococcal pharyngitis, this is not meant to be an all-inclusive list. EKG interpreted by me (3pts min.)? @ -Not obtained X-rays interpreted by me (1pt min.)? @ -Chest x-ray obtained, my interpretation identifies no localized consolidations or infiltrates. CT interpreted by me (1pt min.)? @ -Not obtained U/S interpreted by me (1pt. min.)? @ -Not obtained What testing was considered but not performed? (CT, X-rays, U/S, labs)? Why? @ -None What meds were considered but not given? Why? @ -None Did you discuss the management of the patient with other professionals? @ -No Did you reconcile home meds? @ -No Was smoking cessation discussed for >3mins.? @ -No Was critical care preformed (if so, how long)? @ -No Were there social determinants of health that impacted care today? How? (Homelessness, low income, unemployed, alcoholism, drug addiction, transportation, low edu. Level, literacy, decrease access to med. care, snf, rehab)? @ -No Was there de-escalation of care discussed even if they declined? (Discuss DNR or withdrawal of care, Hospice)? @ -No What co-morbidities impacted this encounter? (DM, HTN, Smoking, COPD, CAD, Cancer, CVA, Hep., AIDS, mental health diagnosis, sleep apnea, morbid obesity)? @ -CAD, asthma Was patient admitted / discharged? @ -Discharged. Covid, influenza, and RSV testing were negative. Chest x-ray reveals no acute process. Advised that this is most likely a viral URI. Prescription for prednisone, albuterol inhaler, and Mucinex provided with dosing instructions reviewed. Otherwise advised she continue with supportive care and follow up with her PCP. Undiagnosed new problem with uncertain prognosis? @ -None Drug Therapy requiring intensive monitoring for toxicity (Heparin, Nitro, Insulin, Cardizem)? @ -None Were any procedures done? @ -None Diagnosis/symptom? @ -Viral URI Acute, or Chronic, or Acute on Chronic? @ -Acute Uncomplicated (without systemic symptoms) or Complicated (systemic symptoms)? @ -Uncomplicated Side effects of treatment? @ -None Exacerbation, Progression, or Severe Exacerbation] @ -Not applicable Poses a threat to life or bodily function? @ -No Return precautions reviewed in depth, the patient is instructed to return to the emergency department with any new, worsening, or concerning symptoms. Patient verbalized understanding. This case was discussed in detail with the attending ED physician, Dr. Bourgeois. Presentation, findings, and treatment plan discussed in detail as well. - Lab Data Lab Results 12/23/22 Range/Units 06:15 Influenza Type A (PCR) Not Detected (Not Detectd) Influenza Type B (PCR) Not Detected (Not Detectd) RSV (PCR) Not Detected (Not Detectd) SARS-CoV-2 (PCR) Not Detected (Not Detectd) - Radiology Data Radiology results: report reviewed, image reviewed Disposition Clinical Impression: Viral URI with cough Disposition: HOME SELF-CARE Instructions (If sedation given, give patient instructions): Upper Respiratory Infection (ED) Additional Instructions: Return to the emergency department with any new, worsening, or concerning symptoms. Take the prednisone daily for 5 days. You can use the albuterol inhaler every 4-6 hours as needed. You can also take the cough medication twice daily as needed. Otherwise continue with supportive care. Follow up with your primary care provider in 1-2 days. Prescriptions: guaiFENesin [Mucinex] 1,200 mg PO BID PRN #20 tab PRN Reason: Cough predniSONE 50 mg PO DAILY 5 Days #5 tablet Albuterol Inhaler [Ventolin Hfa Inhaler] 1 - 2 puff INHALATION Q6H PRN #1 each PRN Reason: Shortness Of Breath Is patient prescribed a controlled substance at d/c from ED?: No Referrals: Devaughn Marino MD [Primary Care Provider] - 1-2 days
[2022-12-23] MEDS ORDERED: BENZONATATE 100 MG CAP PO STA (07:31)
--- NOTE | 2022-12-23 08:14 | XR ---
EXAMINATION TYPE: XR chest 2V DATE OF EXAM: 12/23/2022 COMPARISON: 11/05/2022 INDICATION: Cough and congestion TECHNIQUE: Frontal and lateral views of the chest are obtained. FINDINGS: The heart size is mildly prominent. The pulmonary vasculature is normal. The lungs are clear. Multiple surgical clips are present. Sternotomy wires are in the midline. IMPRESSION: 1. No acute pulmonary process. 2. Mild cardiomegaly
[2022-12-23 08:47] VITALS: BP 116/68; PULSE 72; RESP 18; TEMP 98.2
== END 2022-12-23 08:47 | disposition home or self-care (01) ==
LOC: EC 04:01
DX: J06.9 Acute upper respiratory infection, unspecified (principal); J45.909 Unspecified asthma, uncomplicated; E07.9 Disorder of thyroid, unspecified; Z88.8 Allergy status to other drugs, medicaments and biological substances; Z91.018 Allergy to other foods; Z79.890 Hormone replacement therapy; Z79.899 Other long term (current) drug therapy; Z20.822 Contact with and (suspected) exposure to COVID-19
CPT/HCPCS: 71046; 87636; 99283

== ENCOUNTER → 2023-07-29 | Outpatient (CLI) | payer OTHER | END | disposition home or self-care (01) | LOC: RADMAMWWP 13:16 | PROVIDERS: ATTEND Family Medicine | DX: Z53.9 Procedure and treatment not carried out, unspecified reason (principal) ==

== ENCOUNTER 2023-08-30 12:48 | Day surgery (SDC) | payer OTHER ==
[2023-08-30 14:07] LABS: Mean Platelet Volume 8.6; Platelet Count 135 k/uL (150-450)
[2023-08-30 14:16] LABS: African American GFR (CKD) >90 (>60 ml/min/1.73 sqM); Non-African American GFR(CKD) >90 (>60 ml/min/1.73 sqM)
[2023-08-30 14:27] LABS: INR 1.3 (<1.2); Prothrombin Time 13.9 sec (10.0-12.5)
--- NOTE | 2023-08-30 15:54 | US ---
EXAMINATION TYPE: US paracentesis abd w/image DATE OF EXAM: 08/30/2023 3:20 PM CLINICAL INDICATION:Female, 42 years old with history of [id number] ascites; COMPARISON: None ATTENDING: Dr. Tereso Shabazz PROCEDURE: Informed consent was obtained. The risks of the procedure were extensively explained incl uding risk of damage to surrounding bowel with perforation and need for additional procedures. Proced ure was performed in the ultrasound procedure suite. Ultrasound imaging of the abdomen demonstrate as citic fluid. An appropriate access site was localized to the right lower abdomen. Timeout was taken p er protocol. The skin was prepped and draped in the usual sterile fashion and then locally anesthetiz ed with 1% lidocaine. The peritoneal cavity was then accessed via a 5-German one-step needle/cathete r. Approximately 3300 cc of clear straw-colored fluid was obtained. Postprocedural imaging of the ab domen demonstrate a minimal amount of abdominal fluid. Patient tolerated procedure well without immediate complication. Hemostasis at the procedural site w as obtained with a sterile bandage placed. The patient was monitored in the holding area following th e procedure and was subsequently discharged in stable condition. IMPRESSION: Ultrasound guided paracentesis, with approximately 3300 cc of clear straw-colored fluid drained. Path ology results pending. No immediate complications were evident.
[2023-08-30 16:11] VITALS: BP 106/59; PULSE 58; RESP 12
== END 2023-08-30 15:55 | disposition home or self-care (01) ==
LOC: RADPROMAIN 12:48
PROVIDERS: ATTEND Internal Medicine Gastroenterology
DX: R18.8 Other ascites (principal)
CPT/HCPCS: 49083; 82565; 85049; 85610

== ENCOUNTER 2023-10-23 00:15 | Emergency (ER) | payer OTHER ==
[2023-10-23 01:21] LABS: Basophils % (A) 1 %; Eosinophils # (A) 0.1 k/uL (0-0.7); Eosinophils % (A) 4 %; HCT 45.9 % (34.0-46.0); HGB 14.2 gm/dL (11.4-16.0); Lymphocytes # (A) 0.5 k/uL (1.0-4.8); Lymphocytes % (A) 13 %; MCH 26.8 pg (25.0-35.0); MCV 86.2 fL (80.0-100.0); Mean Platelet Volume 8.8; Monocytes # (A) 0.3 k/uL (0-1.0); Monocytes % (A) 7 %; Neutrophils % (A) 74 %; Platelet Count 123 k/uL (150-450); RBC 5.33 m/uL (3.80-5.40); RDW 14.3 % (11.5-15.5)
[2023-10-23 01:26] VITALS: PULSE 69; RESP 18; TEMP 97.6
[2023-10-23 01:35] LABS: ALT 20 U/L (4-34); AST 41 U/L (14-36); African American GFR (CKD) >90 (>60 ml/min/1.73 sqM); Albumin 4.4 g/dL (3.5-5.0); Alkaline Phosphatase 96 U/L (38-126); Amylase 66 U/L (30-110); Anion Gap 8 mmol/L; Blood Urea Nitrogen 17 mg/dL (7-17); Calcium 9.4 mg/dL (8.4-10.2); Carbon Dioxide 23 mmol/L (22-30); Chloride 105 mmol/L (98-107); Glucose 87 mg/dL (74-99); Lipase 80 U/L (23-300); Non-African American GFR(CKD) >90 (>60 ml/min/1.73 sqM); Potassium 4.1 mmol/L (3.5-5.1); Sodium 136 mmol/L (137-145); Total Bilirubin 0.7 mg/dL (0.2-1.3); Total Protein 7.9 g/dL (6.3-8.2)
[2023-10-23 01:58] LABS: Amorphous Sediment,Urine Rare /hpf; Appearance,Urine Cloudy (Clear); Bacteria,Urine Rare /hpf; Bilirubin,Urine Negative (Negative); Blood,Urine Trace (Negative); Color,Urine Yellow; Glucose,Urine (UA) Negative (Negative); Ketones,Urine Negative (Negative); Leukocyte Esterase,Urine Negative (Negative); Mucus,Urine Rare /hpf; Nitrite,Urine Negative (Negative); PH, Urine 6.5 (5.0-8.0); Protein,Urine 1+ (Negative); RBC,Urine 2 /hpf (0-5); Specific Gravity,Urine 1.021 (1.001-1.035); Squamous Epithelial Cell,Urine 17 /hpf (0-4); Urobilinogen,Urine <2.0 mg/dL (<2.0); WBC,Urine 1 /hpf (0-5)
--- NOTE | 2023-10-23 02:21 | ED ---
Abdominal Pain HPI - General Chief Complaint: Abdominal Pain Stated Complaint: Headache, Abdominal Pain Time Seen by Provider: 10/23/23 00:31 Source: patient Mode of arrival: ambulatory Limitations: no limitations - History of Present Illness Initial Comments: 42-year-old female with history of cirrhosis presenting with chief complaint of abdominal pain. Patient reports diffuse abdominal pain that at times stabbing in nature. Started yesterday. Patient also admits to a headache. This feels like headaches that she has had in the past. Feels like a band tightening around her head. She admits to nausea, no vomiting. No chest pain or difficulty breathing. No diarrhea. Last bowel movement was earlier today. No hematochezia or melena. She last had paracentesis in August. - Related Data Home Medications Medication Instructions Recorded Confirmed Albuterol Inhaler [Ventolin Hfa 2 puff INHALATION RT-Q6H PRN 11/04/22 08/30/23 Inhaler] Levothyroxine Sodium [Synthroid] 100 mcg PO DAILY 11/04/22 08/30/23 Previous Rx's Medication Instructions Recorded Nitroglycerin Sl Tabs [Nitrostat] 0.4 mg SUBLINGUAL Q5M PRN tab 12/28/20 Apixaban [Eliquis] 5 mg PO BID #60 tab 06/09/21 Furosemide [Lasix] 20 mg PO DAILY 30 Days #30 tab 06/11/21 Metoprolol Tartrate 25 mg PO DAILY 30 Days #30 tab 06/11/21 Albuterol Inhaler [Ventolin Hfa 1 - 2 puff INHALATION Q6H PRN #1 12/23/22 Inhaler] each Ondansetron Odt [Zofran Odt] 4 mg PO Q8HR PRN #20 tab 10/23/23 Allergies Allergy/AdvReac Type Severity Reaction Status Date / Time warfarin sodium Allergy Anaphylaxis Verified 10/23/23 00:23 [From Coumadin] peas AdvReac Diarrhea Verified 10/23/23 00:23 Review of Systems ROS Statement: Those systems with pertinent positive or pertinent negative responses have been documented in the HPI. ROS Other: All systems not noted in ROS Statement are negative. Past Medical History Past Medical History: Atrial Flutter, Asthma, Hypertension, Liver Disease, Thyroid Disorder Additional Past Medical History / Comment(s): heart surgery r/t valves as an , History of Any Multi-Drug Resistant Organisms: None Reported Past Surgical History: Coronary Bypass/CABG Additional Past Surgical History / Comment(s): D&C in November 2013, paracentesis, patient states her liver "went bad" after a miscarriage in 2013, Fontan 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 7, Past Anesthesia/Blood Transfusion Reactions: Previous Problems w/ Anesthesia Additional Past Anesthesia/Blood Transfusion Reaction / Comment(s): Patient states she is allergic to anesthesia during 2018 heart cath -- had numbness in right face and left hand, states anesthesiologists indicated if next procedure, would have to be adjusted Past Psychological History: No Psychological Hx Reported Smoking Status: Never smoker Past Alcohol Use History: Rare Past Drug Use History: None Reported - Past Family History Mother Family Medical History: Asthma, Cancer, Hyperlipidemia, Hypertension Additional Family Medical History / Comment(s): Mother had breast CA at age 52 Brother(s) Family Medical History: Asthma Father Family Medical History: Asthma General Exam Limitations: no limitations General appearance: alert, in no apparent distress Head exam: Present: atraumatic, normocephalic Eye exam: Present: normal appearance, EOMI Neck exam: Present: normal inspection. Absent: meningismus Respiratory exam: Present: normal lung sounds bilaterally. Absent: respiratory distress, wheezes, rales, rhonchi, stridor Cardiovascular Exam: Present: regular rate, normal rhythm, normal heart sounds. Absent: systolic murmur, diastolic murmur, rubs, gallop, clicks GI/Abdominal exam: Present: soft, distended, normal bowel sounds. Absent: tenderness, guarding, rebound, rigid Expanded GI/Abdominal exam: Present: ascites Neurological exam: Present: alert, oriented X3 Psychiatric exam: Present: normal affect, normal mood Skin exam: Present: warm, dry Course Vital Signs 10/23/23 10/23/23 00:22 04:23 Temperature 97.6 F Pulse Rate 69 69 Respiratory 18 18 Rate Blood Pressure 123/79 116/74 O2 Sat by Pulse 97 97 Oximetry Medical Decision Making - Medical Decision Making Was pt. sent in by a medical professional or institution (, PA, RESIDENTIAL SUBCONTRACTOR, urgent care, hospital, or [facility]...) When possible be specific @ -No Did you speak to anyone other than the patient for history (EMS, parent, family, police, friend...)? What history was obtained from this source @ -No Did you review nursing and triage notes (agree or disagree)? Why? @ -I reviewed and agree with nursing and triage notes Were old charts reviewed (outside hosp., previous admission, EMS record, old EKG, old radiological studies, urgent care reports/EKG's, [facility] records)? Report findings @ -No old charts were reviewed Differential Diagnosis (chest pain, altered mental status, abdominal pain women, abdominal pain men, vaginal bleeding, weakness, fever, dyspnea, syncope, headache, dizziness, GI bleed, back pain, seizure, CVA, palpatations, mental health, musculoskeletal)? @ -MDM Differential Abdominal Pain Women: Appendicitis, Cholecystitis, diverticulosis, ischemic bowel, pancreatitis, hepatitis, UTI, gastroenteritis, AAA, incarcerated hernia, bowel obstruction, constipation, inflammatory bowel, hepatitis, peptic ulcer disease, splenic infarction, perforated viscus, vulvitis, ovarian torsion, PID, kidney stone, placenta abruption... This is not meant to be an all-inclusive list EKG interpreted by me (3pts min.). @ -As above X-rays interpreted by me (1pt min.). @ -None done CT interpreted by me (1pt min.). @ -CT shows gas-filled small bowel loops could represent enteritis or ileus in the appropriate clinical setting. Cirrhotic liver. Splenomegaly. Large amount of ascites. Nonspecific similar prominent mesenteric lymph nodes and shotty retroperitoneal lymph nodes U/S interpreted by me (1pt. min.). @ -None done What testing was considered but not performed or refused? (CT, X-rays, U/S, labs)? Why? @ -None What meds were considered but not given or refused? Why? @ -None Did you discuss the management of the patient with other professionals (professionals i.e. DrSai, PA, RESIDENTIAL SUBCONTRACTOR, lab, RT, psych nurse, social media campaign manager, manager outpatient, teacher, administrative officer, returned case inspector)? Give summary @ -No Was smoking cessation discussed for >3mins.? @ -No Was critical care preformed (if so, how long)? @ -No Were there social determinants of health that impacted care today? How? (Homelessness, low income, unemployed, alcoholism, drug addiction, transportation, low edu. Level, literacy, decrease access to med. care, [facility], rehab)? @ -No Was there de-escalation of care discussed even if they declined (Discuss DNR or withdrawal of care, Hospice)? DNR status @ -No What co-morbidities impacted this encounter? (DM, HTN, Smoking, COPD, CAD, Cancer, CVA, ARF, Chemo, Hep., AIDS, mental health diagnosis, sleep apnea, morb id obesity)? @ -None Was patient admitted / discharged? Hospital course, mention meds given and rou te, prescriptions, significant lab abnormalities, going to OR and other pertinent info. @ -42-year-old female presenting with chief complaint of abdominal pain and headache. History and physical exam are conducted. Lab work shows no leukocytosis or anemia. CMP requires no action. Urine shows no evidence of infectious process or bleeding. Negative hCG. She is negative for influenza, RSV, COVID. CT shows ileus versus enteritis. On reassessment patient reports that she feels much better and would like to be discharged home. She is educated on CT findings and symptoms that should prompt reevaluation. Discharged home. Follow-up with PCP. Report back to ER with any new or worsening symptoms. Discussed return parameters and answered all questions. Patient conveyed verbal understanding and agreed to the plan. I discussed this case in detail with my attending Dr. Hunt Undiagnosed new problem with uncertain prognosis? @ -No Drug Therapy requiring intensive monitoring for toxicity (Heparin, Nitro, Insulin, Cardizem)? @ -No Were any procedures done? @ -No Diagnosis/symptom? @ -Abdominal pain Acute, or Chronic, or Acute on Chronic? @ -Acute Uncomplicated (without systemic symptoms) or Complicated (systemic symptoms)? @ -Uncomplicated Side effects of treatment? @ -No Exacerbation, Progression, or Severe Exacerbation? @ -No Poses a threat to life or bodily function? How? (Chest pain, USA, MT, pneumonia, PE, COPD, DKA, ARF, appy, cholecystitis, CVA, Diverticulitis, Homicidal, Suicidal, threat to staff... and all critical care pts) @ -Low likelihood - Lab Data Result diagrams: 10/23/23 00:47 10/23/23 00:47 Lab Results 10/23/23 10/23/23 10/23/23 Range/Units 00:47 00:47 00:47 WBC 4.0 (3.8-10.6) k/uL RBC 5.33 (3.80-5.40) m/uL Hgb 14.2 (11.4-16.0) gm/dL Hct 45.9 (34.0-46.0) % MCV 86.2 (80.0-100.0) fL MCH 26.8 (25.0-35.0) pg MCHC 31.0 (31.0-37.0) g/dL RDW 14.3 (11.5-15.5) % Plt Count 123 L (150-450) k/uL MPV 8.8 Neutrophils % 74 % Lymphocytes % 13 % Monocytes % 7 % Eosinophils % 4 % Basophils % 1 % Neutrophils # 3.0 (1.3-7.7) k/uL Lymphocytes # 0.5 L (1.0-4.8) k/uL Monocytes # 0.3 (0-1.0) k/uL Eosinophils # 0.1 (0-0.7) k/uL Basophils # 0.0 (0-0.2) k/uL Sodium 136 L (137-145) mmol/L Potassium 4.1 (3.5-5.1) mmol/L Chloride 105 (98-107) mmol/L Carbon Dioxide 23 (22-30) mmol/L Anion Gap 8 mmol/L BUN 17 (7-17) mg/dL Creatinine 0.72 (0.52-1.04) mg/dL Est GFR (CKD-EPI)AfAm >90 (>60 ml/min/1.73 sqM) Est GFR (CKD-EPI)NonAf >90 (>60 ml/min/1.73 sqM) Glucose 87 (74-99) mg/dL Plasma Lactic Acid Yaya (0.7-2.0) mmol/L Calcium 9.4 (8.4-10.2) mg/dL Total Bilirubin 0.7 (0.2-1.3) mg/dL AST 41 H (14-36) U/L ALT 20 (4-34) U/L Alkaline Phosphatase 96 (38-126) U/L Total Protein 7.9 (6.3-8.2) g/dL Albumin 4.4 (3.5-5.0) g/dL Amylase 66 (30-110) U/L Lipase 80 (23-300) U/L Urine Color Yellow Urine Appearance Cloudy H (Clear) Urine pH 6.5 (5.0-8.0) Ur Specific [place] 1.021 (1.001-1.035) Urine Protein 1+ H (Negative) Urine Glucose (UA) Negative (Negative) Urine Ketones Negative (Negative) Urine Blood Trace H (Negative) Urine Nitrite Negative (Negative) Urine Bilirubin Negative (Negative) Urine Urobilinogen <2.0 (<2.0) mg/dL Ur Leukocyte Esterase Negative (Negative) Urine RBC 2 (0-5) /hpf Urine WBC 1 (0-5) /hpf Ur Squamous Epith Cells 17 H (0-4) /hpf Amorphous Sediment Rare H (None) /hpf Urine Bacteria Rare H (None) /hpf Urine Mucus Rare H (None) /hpf Urine HCG, Qual (Not Detectd) Influenza Type A (PCR) (Not Detectd) Influenza Type B (PCR) (Not Detectd) RSV (PCR) (Not Detectd) SARS-CoV-2 (PCR) (Not Detectd) 10/23/23 10/23/23 10/23/23 Range/Units 00:47 00:47 00:47 WBC (3.8-10.6) k/uL RBC (3.80-5.40) m/uL Hgb (11.4-16.0) gm/dL Hct (34.0-46.0) % MCV (80.0-100.0) fL MCH (25.0-35.0) pg MCHC (31.0-37.0) g/dL RDW (11.5-15.5) % Plt Count (150-450) k/uL MPV Neutrophils % % Lymphocytes % % Monocytes % % Eosinophils % % Basophils % % Neutrophils # (1.3-7.7) k/uL Lymphocytes # (1.0-4.8) k/uL Monocytes # (0-1.0) k/uL Eosinophils # (0-0.7) k/uL Basophils # (0-0.2) k/uL Sodium (137-145) mmol/L Potassium (3.5-5.1) mmol/L Chloride (98-107) mmol/L Carbon Dioxide (22-30) mmol/L Anion Gap mmol/L BUN (7-17) mg/dL Creatinine (0.52-1.04) mg/dL Est GFR (CKD-EPI)AfAm (>60 ml/min/1.73 sqM) Est GFR (CKD-EPI)NonAf (>60 ml/min/1.73 sqM) Glucose (74-99) mg/dL Plasma Lactic Acid Yaya 0.7 (0.7-2.0) mmol/L Calcium (8.4-10.2) mg/dL Total Bilirubin (0.2-1.3) mg/dL AST (14-36) U/L ALT (4-34) U/L Alkaline Phosphatase (38-126) U/L Total Protein (6.3-8.2) g/dL Albumin (3.5-5.0) g/dL Amylase (30-110) U/L Lipase (23-300) U/L Urine Color Urine Appearance (Clear) Urine pH (5.0-8.0) Ur Specific [place] (1.001-1.035) Urine Protein (Negative) Urine Glucose (UA) (Negative) Urine Ketones (Negative) Urine Blood (Negative) Urine Nitrite (Negative) Urine Bilirubin (Negative) Urine Urobilinogen (<2.0) mg/dL Ur Leukocyte Esterase (Negative) Urine RBC (0-5) /hpf Urine WBC (0-5) /hpf Ur Squamous Epith Cells (0-4) /hpf Amorphous Sediment (None) /hpf Urine Bacteria (None) /hpf Urine Mucus (None) /hpf Urine HCG, Qual Not Detected (Not Detectd) Influenza Type A (PCR) Not Detected (Not Detectd) Influenza Type B (PCR) Not Detected (Not Detectd) RSV (PCR) Not Detected (Not Detectd) SARS-CoV-2 (PCR) Not Detected (Not Detectd) Disposition Clinical Impression: Abdominal pain Disposition: HOME SELF-CARE Condition: Good Instructions (If sedation given, give patient instructions): Abdominal Pain (ED) Additional Instructions: Follow-up with your PCP. Report back to ER with any new or worsening symptoms. Prescriptions: Ondansetron Odt [Zofran Odt] 4 mg PO Q8HR PRN #20 tab PRN Reason: Nausea Is patient prescribed a controlled substance at d/c from ED?: No Referrals: Morris Arreola MD [Primary Care Provider] - 1-2 days Time of Disposition: 04:08
[2023-10-23] MEDS: HYDROmorphone 1 MG/ML 1 ML SYRINGE IVP STA (02:25)
--- NOTE | 2023-10-23 03:41 | CT ---
EXAM: CT Abdomen and Pelvis With Intravenous Contrast CLINICAL HISTORY: ITS.REASON CT Reason: abdominal pain TECHNIQUE: Axial computed tomography images of the abdomen and pelvis with intravenous contrast. CTDI is 14.5 mGy and DLP is 724.2 mGy-cm. This CT exam was performed using one or more of the following dose reduction techniques: automated exposure control, adjustment of the mA and/or kV according to patient size, and/or use of iterative reconstruction technique. COMPARISON: CT abdomen/pelvis on 11/04/2022 FINDINGS: Lung bases: Unremarkable. No mass. No consolidation. Heart: Cardiomegaly. ABDOMEN: Liver: Cirrhotic liver. Reflux of contrast into a right hepatic vein. Gallbladder and bile ducts: Unremarkable. No calcified stones. No ductal dilation. Pancreas: Unremarkable. No mass. No ductal dilation. Spleen: Splenomegaly. Adrenals: Unremarkable. No mass. Kidneys and ureters: Unremarkable. No hydronephrosis or obstructing stone. Stomach and bowel: Gas-filled small bowel loops could represent enteritis or ileus in the appropriate clinical setting. Evaluation of the stomach is limited by underdistention. PELVIS: Appendix: Normal appendix. Bladder: Unremarkable. No mass. Reproductive: Unremarkable as visualized. ABDOMEN and PELVIS: Intraperitoneal space: Large amount of ascites. No free air. Bones/joints: No acute fracture. No dislocation. Soft tissues: More focally dense breast tissue in the left breast again partially seen. Vasculature: See above. Lymph nodes: Nonspecific similar prominent mesenteric lymph nodes and shotty retroperitoneal lymph nodes. IMPRESSION: 1. Gas-filled small bowel loops could represent enteritis or ileus in the appropriate clinical setting. 2. Cirrhotic liver. 3. Splenomegaly. Large amount of ascites. 4. Nonspecific similar prominent mesenteric lymph nodes and shotty retroperitoneal lymph nodes.
[2023-10-23 04:59] VITALS: BP 116/74
== END 2023-10-23 04:23 | disposition home or self-care (01) ==
LOC: EC 00:15
DX: K74.60 Unspecified cirrhosis of liver (principal); R18.8 Other ascites; Z88.8 Allergy status to other drugs, medicaments and biological substances; Z11.52 Encounter for screening for COVID-19
CPT/HCPCS: 99284 ×2; 96374 ×2; 36415; 80053; 82150; 83605; 83690; 85025; 81001; 81025; 87636; 74177; J1170; Q9967

== ENCOUNTER → 2024-01-12 | Outpatient (CLI) | payer OTHER ==
--- NOTE | 2024-01-12 16:06 | US ---
EXAMINATION TYPE: US pelvis complete transvag DATE OF EXAM: 01/12/2024 COMPARISON: CT 10/23/2023 CLINICAL INDICATION: Female, 43 years old with history of N92.6 IRREGULAR MENSTRUATION, UNSPECIFIED; Hx ovarian cyst, hx 1 miscarriage. Abnormal periods. . TECHNIQUE: Transvaginal (TV) and Transabdominal (TA) . Transabdominal sonographic images of the pel vis were acquired. Transvaginal sonographic images were medically necessary to better assess the fol lowing anatomy: Ovaries Transabdominal images performed to better evaluate fluid areas. Patient has had known ascites and has had hx of paracentesis. Date of LMP: Unknown, patient states LMP was about a month ago. EXAM MEASUREMENTS: Uterus: 6.8 x 3.9 x 2.4 cm Endometrial Stripe: 0.37 cm Right Ovary: Not seen Left Ovary: Not seen 1. Uterus: Slightly limited evaluation due to fluid. 2. Endometrium: Measures 0.37 cm 3. Right Ovary: Not seen 4. Left Ovary: Not seen 5. Bilateral Adnexa: Fluid with echoes seen throughout pelvis. 6. Posterior cul-de-sac: Fluid with echoes seen. IMPRESSION: 1. Endometrium within normal limits for thickness. 2. Moderate ascites. 3. Ovaries not visualized due to bowel.
== END | disposition home or self-care (01) ==
LOC: RADUSWWP 14:54
PROVIDERS: ATTEND Family Medicine
DX: N92.6 Irregular menstruation, unspecified (principal); R18.8 Other ascites
CPT/HCPCS: 76830; 76856

== ENCOUNTER 2024-03-23 08:42 | Day surgery (SDC) | payer OTHER ==
[2024-03-23 10:33] VITALS: TEMP 97.5
[2024-03-23 10:37] LABS: Basophils % (A) 1 %; Eosinophils # (A) 0.2 k/uL (0-0.7); Eosinophils % (A) 4 %; HCT 48.9 % (34.0-46.0); HGB 15.5 gm/dL (11.4-16.0); Hypochromasia Moderate; Lymphocytes # (A) 0.5 k/uL (1.0-4.8); Lymphocytes % (A) 12 %; MCH 27.8 pg (25.0-35.0); MCHC 31.6 g/dL (31.0-37.0); Mean Platelet Volume 9.1; Monocytes # (A) 0.4 k/uL (0-1.0); Monocytes % (A) 9 %; Neutrophils # (A) 2.9 k/uL (1.3-7.7); Neutrophils % (A) 72 %; Platelet Count 145 k/uL (150-450); RBC 5.56 m/uL (3.80-5.40); RDW 14.1 % (11.5-15.5)
[2024-03-23 10:57] LABS: INR 1.2 (<1.2); Prothrombin Time 12.6 sec (10.0-12.5)
[2024-03-23 11:29] VITALS: PULSE 57; RESP 16
[2024-03-23] MEDS: ALBUMIN HUMAN 25% 50 ML in EMPTY BAG 1 BAG IVPB SCH (11:43)
[2024-03-23 12:28] VITALS: BP 90/57
--- NOTE | 2024-03-23 13:21 | US ---
EXAMINATION TYPE: US liver DATE OF EXAM: 03/23/2024 COMPARISON: NONE CLINICAL INDICATION: Female, 43 years old with history of [id number] CIRRHOSIS OF LIVER; cirrhosis TECHNIQUE: Multiple sonographic images of the right upper quadrant are obtained. FINDINGS: EXAM MEASUREMENTS: Liver Length: 13.5 cm Gallbladder Wall: 0.2 cm CBD: 0.3 cm Right Kidney: 9.1 x 4.6 x 3.5 cm Pancreas: Obscured by bowel gas Liver: nodular contour no gross focal masses visualized no dilated ducts or cystic structures. Gallbladder: no evidence of stones Evidence for sonographic Quevedo's sign: no CBD: appears wnl Right Kidney: no evidence of hydronephrosis *small amount of free fluid adjacent to liver *patient scanned after paracentesis procedure IMPRESSION: No evidence for acute process. Hepatic cirrhosis without evidence for suspicious mass. [facility], , 03/23/2024 1:18 PM
--- NOTE | 2024-03-24 11:07 | US ---
EXAMINATION TYPE: US paracentesis abd w/image DATE OF EXAM: 03/23/2024 12:18 PM CLINICAL INDICATION:Female, 43 years old with history of R18.8 ascities; COMPARISON: 08/30/2023 ATTENDING: Dr. Tereso Shabazz PROCEDURE: Informed consent was obtained. The risks of the procedure were extensively explained incl uding risk of damage to surrounding bowel with perforation and need for additional procedures. Proced ure was performed in the ultrasound procedure suite. Ultrasound imaging of the abdomen demonstrate as citic fluid. An appropriate access site was localized to the right lower abdomen. Timeout was taken p er protocol. The skin was prepped and draped in the usual sterile fashion and then locally anesthetiz ed with 1% lidocaine. The peritoneal cavity was then accessed via a 5-Danish one-step needle/cathete r. Approximately 5650 cc of clear straw-colored fluid was obtained. Postprocedural imaging of the a bdomen demonstrate a minimal amount of abdominal fluid. Patient tolerated procedure well without immediate complication. Hemostasis at the procedural site w as obtained with a sterile bandage placed. The patient was monitored in the holding area following th e procedure and was subsequently discharged in stable condition. IMPRESSION: Ultrasound guided paracentesis, with approximately 5650 cc of clear straw-colored fluid drained. No i mmediate complications were evident. [facility], , 03/24/2024 11:05 AM
== END 2024-03-23 12:20 | disposition home or self-care (01) ==
LOC: RADPROMAIN 08:42
PROVIDERS: ATTEND Internal Medicine Gastroenterology
DX: R18.8 Other ascites (principal)
CPT/HCPCS: 36415; 49083; 76705; 85025; 85610

== ENCOUNTER → 2024-03-28 | Outpatient (CLI) | payer OTHER ==
[2024-03-28 20:25] LABS: HGB 16.1 g/dL (12.0-15.0); MCH 27.5 pg (27.0-32.0); MCHC 31.6 g/dL (32.0-37.0); Mean Platelet Volume 12.8 FL (9.5-12.2); NRBC Per 100 WBC 0 X 10*3/uL (0.00-0.01); Platelet Count 150 X 10*3/uL (140-440); RBC 5.86 X 10*6/uL (4.10-5.20); RDW 14.1 % (11.5-14.5); WBC 5.99 X 10*3/uL (4.50-10.00)
== END | disposition home or self-care (01) ==
LOC: LABWHC1 13:43
PROVIDERS: ATTEND Internal Medicine Gastroenterology
DX: K74.60 Unspecified cirrhosis of liver (principal)
CPT/HCPCS: 36415; 80053; 82105; 85027

== ENCOUNTER → 2024-04-26 | Outpatient (CLI) | payer OTHER ==
--- NOTE | 2024-04-27 18:03 | MR ---
EXAMINATION TYPE: MR liver wo/w con DATE OF EXAM: 04/26/2024 6:48 PM CLINICAL INDICATION: Female, 43 years old with history of ABORMALITY OF ALPHA-FETOPROTEIN; PHH, RLQ p ain abnormality of alphafetoprotein. history of doing paracentesis for past 10 years COMPARISON: 03/22/2024 ultrasound TECHNIQUE: Multiplanar multi-sequence imaging was performed without contrast. Post contrast imaging was performed. Post IV contrast subtraction images were also submitted for review. IV Contrast: 5.5 cc Gadavist FINDINGS: LOWER CHEST:Heart is enlarged for size. ABDOMEN Liver: Nodular contour to liver with caudate lobe hypertrophy. Gallbladder and Bile ducts: No evidence for ductal dilation, or biliary stricture or evidence of chol edocholithiasis. The gallbladder is within normal limits. Pancreas: No ductal dilation. No evidence for solid mass. Spleen: Enlarged measuring 14.7 cm. Adrenal glands: Unremarkable. Kidneys: No evidence for obstructive uropathy. No suspicious renal masses. Simple appearing right neil al subcentimeter cysts. Stomach and Bowel: No evidence for bowel wall thickening or evidence for obstruction. Retroperitoneum/Peritoneum: No evidence of pneumoperitoneum. Large amount of ascites throughout the abdomen Vasculature: No aortic aneurysm. Musculoskeletal: The osseous structures appear intact. Lymph Nodes: No gross evidence for lymphadenopathy. Abdominal wall: Unremarkable. IMPRESSION: 1. Hepatic cirrhosis with evidence of portal hypertension with splenic megaly and large volume ascit es without evidence of asymmetry CT criteria. Given elevated alpha-fetoprotein close surveillance rec ommended with MRI imaging. 2. Cardiomegaly. [facility], , 04/27/2024 6:01 PM
== END | disposition home or self-care (01) ==
LOC: RADMRIMAIN 17:31
PROVIDERS: ATTEND Internal Medicine Gastroenterology
CPT/HCPCS: 74183

== ENCOUNTER → 2024-09-05 | Outpatient (CLI) | payer OTHER ==
[2024-09-05 18:16] LABS: HCT 44.1 % (37.2-46.3); MCH 26.3 pg (27.0-32.0); MCHC 31.7 g/dL (32.0-37.0); MCV 82.7 FL (80.0-97.0); Mean Platelet Volume 11.3 FL (9.5-12.2); NRBC Per 100 WBC 0 X 10*3/uL (0.00-0.01); Platelet Count 139 X 10*3/uL (140-440); RBC 5.33 X 10*6/uL (4.10-5.20); RDW 14.8 % (11.5-14.5); WBC 4.59 X 10*3/uL (4.50-10.00)
[2024-09-05 18:42] LABS: ALT 10 U/L (8-44); AST 27 U/L (13-35); Albumin 4.2 g/dL (3.8-4.9); Albumin/Globulin Ratio 1.31 Ratio (1.60-3.17); Alkaline Phosphatase 80 U/L (41-126); Carbon Dioxide 22.1 mmol/L (21.6-31.8); Chloride 104 mmol/L (96-109); Globulin 3.2 g/dL (1.6-3.3); Glucose 86 mg/dL (70-110); Potassium 4.2 mmol/L (3.5-5.5); Sodium 138 mmol/L (135-145); Total Protein 7.4 g/dL (6.2-8.2)
== END | disposition home or self-care (01) ==
LOC: LABWHC1 14:56
PROVIDERS: ATTEND Internal Medicine Gastroenterology
DX: K74.60 Unspecified cirrhosis of liver (principal)
CPT/HCPCS: 36415; 80053; 82105; 85027

== ENCOUNTER 2024-09-25 12:41 | Day surgery (SDC) | payer OTHER ==
[2024-09-25 13:49] LABS: Mean Platelet Volume 8.7; Platelet Count 129 k/uL (150-450)
[2024-09-25 14:00] LABS: African American GFR (CKD) >90 (>60 ml/min/1.73 sqM); Non-African American GFR(CKD) >90 (>60 ml/min/1.73 sqM)
[2024-09-25 14:03] VITALS: RESP 16; TEMP 98.6
[2024-09-25 15:08] LABS: INR 1.4 (<1.2); Prothrombin Time 14.3 sec (10.0-12.5)
[2024-09-25] MEDS: ALBUMIN HUMAN 25% 50 ML in EMPTY BAG 1 BAG IVPB SCH (15:20)
[2024-09-25 16:29] VITALS: BP 99/63; PULSE 58
--- NOTE | 2024-09-26 07:02 | US ---
EXAMINATION TYPE: US paracentesis abd w/image DATE OF EXAM: 09/25/2024 3:39 PM COMPARISON: None. Previous Paracentesis CLINICAL INDICATION: Female, 43 years old with history of R18.8 OTHER ASCITES; , ascites TECHNIQUE/FINDINGS: The procedure was discussed with the patient. The risks, complications, benefits, and alternatives we re discussed and any questions were answered. Informed consent was obtained. The patient was placed s upine on the ultrasound table and prepped and draped in the usual sterile fashion. All elements of maximal barrier technique were utilized. Under ultrasound guidance, access into the right lower quadrant was obtained, via the paracentesis catheter system and direct ultrasound guidanc e. Approximately 5.7 liters of straw-colored fluid was removed. The patient was stable throughout the pr ocedure and remained stable upon discharge from Department of Radiology. IMPRESSION: Successful paracentesis under ultrasound guidance. [facility], , 09/26/2024 7:00 AM
== END 2024-09-25 16:29 | disposition home or self-care (01) ==
LOC: RADPROMAIN 12:41
PROVIDERS: ATTEND Internal Medicine Gastroenterology
DX: R18.8 Other ascites (principal)
CPT/HCPCS: 82565; 85049; 85610; 36415; 49083; P9047

== ENCOUNTER 2024-10-06 13:16 | Emergency (ER) | payer OTHER ==
--- NOTE | 2024-10-06 13:47 | ED ---
Upper Extremity HPI - General Chief Complaint: Extremity Injury, Upper Stated Complaint: Fall Time Seen by Provider: 10/06/24 13:32 Source: patient, RN notes reviewed Mode of arrival: ambulatory - History of Present Illness Initial Comments: 43-year-old female presents emergency department referral from urgent care for complaint of right elbow pain after a fall. Patient states that she was inside of [employer] restaurant when she tripped over a table falling directly onto her right elbow. Patient states that she did mildly hit her head however there is no loss of consciousness and is not experiencing a headache or visual disturbances. There is also minor pain to her right knee however patient is able to ambulate and denies paresthesias. Patient was evaluated urgent care where there is concern for a fracture of her elbow however they recommend that she report to the emergency department for further evaluation. Patient denies paresthesias of the right upper extremity. - Related Data Home Medications Medication Instructions Recorded Confirmed No Known Home Medications 10/06/24 10/06/24 Allergies Allergy/AdvReac Type Severity Reaction Status Date / Time Anesthetics - Amide Type - Allergy Chest Pain Verified 10/06/24 14:10 Select A Anesthetics - Radha Type- Allergy Anaphylaxis Verified 10/06/24 14:10 Parabens warfarin sodium Allergy Anaphylaxis Verified 10/06/24 14:10 [From Coumadin] peas AdvReac Diarrhea Verified 10/06/24 14:10 Review of Systems ROS Statement: Those systems with pertinent positive or pertinent negative responses have been documented in the HPI. ROS Other: All systems not noted in ROS Statement are negative. 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, ascites History of Any Multi-Drug Resistant Organisms: None Reported Past Surgical History: Coronary Bypass/CABG Additional Past Surgical History / Comment(s): D&C in November 2013, paracentesis, patient states her liver "went bad" after a miscarriage in 2013, Fontan 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 7, paracentesis approx q 6 months Past Anesthesia/Blood Transfusion Reactions: Previous Problems w/ Anesthesia Additional Past Anesthesia/Blood Transfusion Reaction / Comment(s): Patient states she is allergic to anesthesia during 2018 heart cath -- had numbness in right face and left hand, states anesthesiologists indicated if next procedure, would have to be adjusted Past Psychological History: No Psychological Hx Reported Smoking Status: Never smoker Past Alcohol Use History: Rare Past Drug Use History: None Reported - Past Family History Mother Family Medical History: Asthma, Cancer, Hyperlipidemia, Hypertension Additional Family Medical History / Comment(s): Mother had breast CA at age 52 Brother(s) Family Medical History: Asthma Father Family Medical History: Asthma General Exam General appearance: alert, in no apparent distress ENT exam: Present: normal exam, mucous membranes moist Neck exam: Present: normal inspection. Absent: tenderness, meningismus, lymphadenopathy Respiratory exam: Present: normal lung sounds bilaterally. Absent: respiratory distress, wheezes, rales, rhonchi, stridor Cardiovascular Exam: Present: regular rate, normal rhythm, normal heart sounds. Absent: systolic murmur, diastolic murmur, rubs, gallop, clicks GI/Abdominal exam: Present: soft, normal bowel sounds. Absent: distended, tenderness, guarding, rebound, rigid Right Elbow exam: Present: tenderness, swelling, ecchymosis. Absent: full ROM, deformity, crepitus, dislocation Neuro motor exam: Present: wrist extension intact, thumb opposition intact Vascular: Present: normal capillary refill, radial pulse (2+). Absent: vascular compromise Right Knee exam: Present: tenderness, abrasion Gait: observed and normal Neurological exam: Present: alert, oriented X3, CN II-XII intact Course Vital Signs 10/06/24 10/06/24 13:26 15:20 Temperature 97.8 F 97.9 F Pulse Rate 82 80 Respiratory 18 18 Rate Blood Pressure 136/87 130/79 O2 Sat by Pulse 95 96 Oximetry Procedures - Orthopedic Splinting/Casting Injury #1 Side: right Upper Extremity Injury Location: long arm Upper Extremity Immobilizer: posterior splint, Farhat wrap, synthetic pre-padded splint Medical Decision Making - Medical Decision Making Was pt. sent in by a medical professional or institution (MARIE Riley, USED CAR SALES MANAGER, urgent care, hospital, or fpc...) When possible be specific @ -Patient was advised by urgent care to report to the emergency department for further evaluation. Did you speak to anyone other than the patient for history (EMS, parent, family, police, friend...)? What history was obtained from this source @ -No Did you review nursing and triage notes (agree or disagree)? Why? @ -I reviewed and agree with nursing and triage notes Were old charts reviewed (outside hosp., previous admission, EMS record, old EKG, old radiological studies, urgent care reports/EKG's, fpc records)? Report findings @ -No old charts were reviewed Differential Diagnosis (chest pain, altered mental status, abdominal pain women, abdominal pain men, vaginal bleeding, weakness, fever, dyspnea, syncope, headache, dizziness, GI bleed, back pain, seizure, CVA, palpatations, mental health, musculoskeletal)? @ -Differential Musculoskeletal Muscular strain, contusion, ligament sprain, fracture, arthritis, septic arthritis, bursitis, cellulitis, muscle spasm, nerve compression, DVT, arterial occlusion, herpes zoster, electrolyte abnormality, tumor.... This is not meant to be in all inclusive list EKG interpreted by me (3pts min.). @ -none X-rays interpreted by me (1pt min.). @ -X-ray of the right elbow reveals an acute displaced intra-articular fracture through the olecranon with abnormal fat pad sign and moderate soft tissue swelling CT interpreted by me (1pt min.). @ -None done U/S interpreted by me (1pt. min.). @ -None done What testing was considered but not performed or refused? (CT, X-rays, U/S, labs)? Why? @ -None What meds were considered but not given or refused? Why? @ -None Did you discuss the management of the patient with other professionals (professionals i.e. , PA, USED CAR SALES MANAGER, lab, RT, psych nurse, social service manager, physician aide, teacher, strategic intelligence officer, continuous pillowcase cutter)? Give summary @ -No Was smoking cessation discussed for >3mins.? @ -No Was critical care preformed (if so, how long)? @ -No Were there social determinants of health that impacted care today? How? (Homelessness, low income, unemployed, alcoholism, drug addiction, transportation, low edu. Level, literacy, decrease access to med. care, retirement, rehab)? @ -No Was there de-escalation of care discussed even if they declined (Discuss DNR or withdrawal of care, Hospice)? DNR status @ -No What co-morbidities impacted this encounter? (DM, HTN, Smoking, COPD, CAD, Cancer, CVA, ARF, Chemo, Hep., AIDS, mental health diagnosis, sleep apnea, morbid obesity)? @ -None Was patient admitted / discharged? Hospital course, mention meds given and route, prescriptions, significant lab abnormalities, going to OR and other pertinent info. @ -Discharge. 43-year-old presenting with referral from urgent care for concern of right elbow pain and fracture. Patient arrives with a splint in place and this is removed to reveal any noted there is noted ecchymosis of the elbow and soft tissue swelling. Neurovascularly intact of the right upper extremity. X- ray is concerning for a acute displaced intra-articular fracture with moderate soft tissue swelling. She is placed in a posterior long-arm splint and provided with a sling and instructed to follow-up with business process specialist. Case discussed with Dr. Bourgeois Undiagnosed new problem with uncertain prognosis? @ -No Drug Therapy requiring intensive monitoring for toxicity (Heparin, Nitro, Insulin, Cardizem)? @ -No Were any procedures done? @ -Yes, see orthopedic splinting note Diagnosis/symptom? @ -Elbow fracture Acute, or Chronic, or Acute on Chronic? @ -Acute Uncomplicated (without systemic symptoms) or Complicated (systemic symptoms)? @ -Uncomplicated Side effects of treatment? @ -No Exacerbation, Progression, or Severe Exacerbation? @ -No Poses a threat to life or bodily function? How? (Chest pain, [place], [place], pneumonia, PE, COPD, DKA, ARF, appy, cholecystitis, CVA, Diverticulitis, Homicidal, Roy icidal, threat to staff... and all critical care pts) @ -No Disposition Clinical Impression: Fall, Elbow fracture, right Disposition: HOME SELF-CARE Condition: Good Instructions (If sedation given, give patient instructions): Elbow Fracture (ED) Additional Instructions: Please return to the Emergency Department if symptoms worsen or any other concerns. Is patient prescribed a controlled substance at d/c from ED?: No Referrals: Morris Arreola MD [Primary Care Provider] - 1-2 days Venkata Thomson DO [Doctor of Osteopathic Medicine] - 1-2 days Time of Disposition: 14:59
[2024-10-06 14:04] VITALS: RESP 18
--- NOTE | 2024-10-06 14:19 | XR ---
EXAMINATION TYPE: XR elbow complete RT DATE OF EXAM: 10/06/2024 COMPARISON: None CLINICAL INDICATION: Female, 43 years old with history of fall, pain, swelling, pain TECHNIQUE: Frontal, lateral and oblique images of the right elbow are obtained. FINDINGS: There is acute displaced intra-articular fracture through the olecranon with associated abn ormal fat pad sign and moderate soft tissue swelling. No elbow dislocation. IMPRESSION: As above. [facility], , 10/06/2024 2:17 PM
[2024-10-06 15:22] VITALS: BP 130/79; PULSE 80; TEMP 97.9
== END 2024-10-06 17:39 | disposition home or self-care (01) ==
LOC: EC 13:16
DX: S42.401A Unspecified fracture of lower end of right humerus, initial encounter for closed fracture (principal); Z88.4 Allergy status to anesthetic agent; Z88.8 Allergy status to other drugs, medicaments and biological substances; W01.0XXA Fall on same level from slipping, tripping and stumbling without subsequent striking against object, initial encounter
CPT/HCPCS: 29105; 99283

== ENCOUNTER → 2024-10-12 | Day surgery (SDC) | payer OTHER ==
[~2024-10-12] MED LIST: HYDROmorphone 0.5 MG/0.5 ML SYRINGE IVP PRN; METOCLOPRAMIDE 5 MG/ML 2 ML VIAL IVP PRN; ceFAZolin 2 GM in DEXTROSE 5% IN WATER 50 ML IVPB PRN; droPERidol 2.5 MG/ML VIAL IVP ONE
[2024-10-12] MEDS: IV FLUID CONTINUATION 1,000 ML IV ONE (11:21)
[2024-10-12 11:40] VITALS: BP 130/70; PULSE 81; RESP 18; TEMP 98
[2024-10-12] MEDS: LACTATED RINGERS 1,000 ML IV SCH (12:08)
[2024-10-12] MEDS: ONDANSETRON 4 MG/2 ML VIAL IVP ONE (12:08)
[2024-10-12] MEDS: DEXAMETHASONE SOD PHOSPHATE 4 MG/ML 1 ML VIAL IV ONE (12:10)
--- NOTE | 2024-10-14 09:17 | P.OP ---
Date of Procedure: 10/13/24 Preoperative Diagnosis: Right olecranon fracture Postoperative Diagnosis: same Procedure(s) Performed: Right olecranon open reduction internal fixation Implants: [place] olecranon plate Anesthesia: JASWINDER Surgeon: Cora Crawley Pathology: none sent Condition: stable Disposition: PACU Indications for Procedure: Patient tripped an fell sustaining an olecranon fracture. It is displaced and intraarticular. We have agreed to proceed with an ORIF. Description of Procedure: Patient, operative extremity, and procedure were identified in the preop holding area. Once informed consent was obtained, she was brought back to the OR. She was then positioned in a lateral decubitus position with an arm board supporting the operative extremity. The extremity was prepped and draped in normal sterile fashion. Time out was performed, tourniquet was inflated. Curvilinear incision was made over the olecranon and ulnar shaft. Dissection was carried down to the bone between the FCU and ECU and the triceps tendon was identified. The fracture was identified. It was transverse with some comminution. Fracture site was cleaned and it was reduced with a reduction clamp. The triceps attachment was splint longitudinally to facilitate the plate placement. The place was selected and provisionally pinned in place. Reduction and hardware placement was confirmed on fluoroscopy. A nonlocking screw was placed in the home run slot to compress across the frac ture. Three screws were then placed along the shaft and an additional locking screw was used to secure the proximal piece. Final fluro showed acceptable alignment of the fracture and placement of the hardware. The triceps split was repaired and tied into the plate. Fascial repair was performed with 0 vicryl. THe skin was closed in a layered fashion with 3.0 vicryl and 4.0 monocryl and skin glue. The arm was placed in a well padded long arm splint. The patient will be kept for observation overnight. She cannot have local anesthetic and may have some pain control issues. She also has a complicated heart and liver history.
== END ==
LOC: OR 10:32
PROVIDERS: ATTEND Orthopaedic Surgery Hand Surgery
DX: S52.021A Displaced fracture of olecranon process without intraarticular extension of right ulna, initial encounter for closed fracture (principal); W01.0XXA Fall on same level from slipping, tripping and stumbling without subsequent striking against object, initial encounter; Z88.6 Allergy status to analgesic agent; Z88.4 Allergy status to anesthetic agent
CPT/HCPCS: 24685; J1100; J2405

== ENCOUNTER 2024-10-13 11:41 | Day surgery (SDC) | payer OTHER ==
[2024-10-12 16:00] VITALS: BMI 25.0
[2024-10-13] MEDS: IV FLUID CONTINUATION 1,000 ML IV ONE (12:38)
[2024-10-13] MEDS ORDERED: HYDROmorphone 2 MG/ML 1 ML SYRINGE IVP PRN (12:52)
[2024-10-13] MEDS ORDERED: HYDROmorphone 0.5 MG/0.5 ML SYRINGE IVP PRN (12:52)
[2024-10-13] MEDS ORDERED: traMADol 50 MG TAB PO PRN (12:54)
[2024-10-13] MEDS: DEXAMETHASONE SOD PHOSPHATE 4 MG/ML 1 ML VIAL IVP STA (12:58)
[2024-10-13] MEDS: ONDANSETRON 4 MG/2 ML VIAL IVP STA (13:02)
[2024-10-13] MEDS: FAMOTIDINE 20 MG/2 ML VIAL IV STA (13:05)
[2024-10-13] MEDS ORDERED: fentaNYL (PF) 50 MCG/ML 2 ML AMP ONE (13:17)
[2024-10-13] MEDS ORDERED: MIDAZOLAM 2 MG/2 ML VIAL ONE (13:17)
[2024-10-13] MEDS ORDERED: PROPOFOL 10 MG/ML 20 ML VIAL IV ONE (13:17)
[2024-10-13] MEDS ORDERED: ePHEDrine 50 MG/ML 1 ML VIAL ONE (13:17)
[2024-10-13] MEDS ORDERED: SUCCINYLCHOLINE CHLORIDE 200 MG/10 ML VIAL IV ONE (13:17)
[2024-10-13] MEDS: ceFAZolin 2 GM in DEXTROSE 5% IN WATER 50 ML IVPB PRN (13:21)
[2024-10-13] MEDS: ceFAZolin 1,000 MG in SODIUM CHLORIDE 0.9% 1,000 ML IRRIGATION ONE (14:04)
--- NOTE | 2024-10-13 15:06 | FL ---
EXAMINATION TYPE: FL guidance operating room, XR elbow limited RT DATE OF EXAM: 10/13/2024 2:53 PM COMPARISON: Pre Operative Images if available both CT/MRI or plain film CLINICAL INDICATION: Female, 43 years old with history of ORIF Rt Elbow; TECHNIQUE: FL guidance operating room, XR elbow limited RT, multiple fluoroscopic images provided for procedure. DAP: 0.0777 mGym2 Gycm2 uGym2 cGycm2 or equivalent. FINDINGS: Fluoroscopic images during internal fixation demonstrate hardware in appropriate position. Hardware a ppears intact. No immediate complication identified. IMPRESSION: 1. No evidence for intraoperative complication. 2. Please see the operative/procedural note for further details. [facility], , 10/13/2024 3:03 PM
[2024-10-13] MEDS: HYDROmorphone 0.5 MG/0.5 ML SYRINGE IVP PRN ×2 (15:25→15:36)
[2024-10-13] MEDS: ONDANSETRON 4 MG/2 ML VIAL IVP PRN (16:57)
[2024-10-13] MEDS: LACTATED RINGERS 1,000 ML IV SCH ×2 (17:40)
[2024-10-13 19:43] VITALS: RESP 17
[2024-10-13] MEDS: traMADol 50 MG TAB PO PRN (19:54)
[2024-10-13] MEDS: ceFAZolin 2 GM in DEXTROSE 5% IN WATER 50 ML IVPB SCH (20:49)
[2024-10-14] MEDS ORDERED: droPERidol 2.5 MG/ML VIAL IVP PRN (07:00)
[2024-10-14 07:30] VITALS: BP 96/65; PULSE 72; TEMP 97.5
--- NOTE | 2024-10-14 09:36 | P.DS ---
Providers Attending physician: Cora Crawley Primary care physician: [place] Hospital Course: Patient is a very pleasant 43-year-old female patient of Dr. Cora Crawley. On 10/13/2024 patient underwent right open reduction and internal fixation for right olecranon fracture. Patient tolerated the procedure well. Patient had right elbow pain as expected after surgery. Patient was kept overnight for pain control. Patient states this morning her pain has been very well-controlled. P atient denies any acute events overnight. Patient was examined at bedside this morning patient was resting in bed in no acute distress. Patient was awake, alert, and able to answer questions. On exam patient right upper extremity was in Farhat wrap and sling. Patient's fingers were exposed. Patient's motor function of the right axillary, radial, median, ulnar, and anterior interosseous nerves were grossly intact. The patient states sensation was intact to light touch over all 5 digits of right upper extremity. Patient had capillary refill under 2 seconds in all 5 digits of right upper extremity. Patient states they are allergic to acetaminophen. Tramadol was ordered and sent to patient's home pharmacy. Plan to discharge home today. Patient states her mother will come pick her up. Assessment: Postop day #1 status post open reduction and internal fixation of right olecranon fracture Plan - Discharge Summary Discharge Rx Participant: Yes New Discharge Prescriptions: New traMADol HCl [Ultram] 1 - 2 mg PO Q6HR PRN 3 Days #28 tab PRN Reason: Pain No Action Motrin (Unknown Dose) 1 tab PO DIRECTED PRN PRN Reason: Pain Albuterol Inhaler Unknown Dose 1 - 2 puff INHALATION DIRECTED PRN PRN Reason: Shortness Of Breath Discharge Medication List Albuterol Inhaler Unknown Dose 1 - 2 puff INHALATION DIRECTED PRN 10/12/24 [History] Motrin (Unknown Dose) 1 tab PO DIRECTED PRN 10/12/24 [History] traMADol HCl [Ultram] 1 - 2 mg PO Q6HR PRN 3 Days #28 tab 10/14/24 [Rx] Follow up Appointment(s)/Referral(s): Lawanda White NPC [Nurse Practitioner] - 10/18/24 10:00 am Activity/Diet/Wound Care/Special Instructions: Keep dressing and splint in place and dry. Cover with plastic to shower. Sling for comfort Ice elbow Follow up in the office next week [facility] with any questions or concerns, . Discharge Disposition: HOME SELF-CARE
--- NOTE | 2024-10-17 08:46 | P.OP ---
Date of Procedure: 10/13/24 Preoperative Diagnosis: Right olecranon fracture Postoperative Diagnosis: same Procedure(s) Performed: Right olecranon open reduction internal fixation Implants: [place] olecranon plate Anesthesia: JASWINDER Surgeon: Cora Crawley Pathology: none sent Condition: stable Disposition: PACU Indications for Procedure: Patient tripped an fell sustaining an olecranon fracture. It is displaced and intraarticular. We have agreed to proceed with an ORIF. Description of Procedure: Patient, operative extremity, and procedure were identified in the preop holding area. Once informed consent was obtained, she was brought back to the OR. She was then positioned in a lateral decubitus position with an arm board supporting the operative extremity. The extremity was prepped and draped in normal sterile fashion. Time out was performed, tourniquet was inflated. Curvilinear incision was made over the olecranon and ulnar shaft. Dissection was carried down to the bone between the FCU and ECU and the triceps tendon was identified. The fracture was identified. It was transverse with some comminution. Fracture site was cleaned and it was reduced with a reduction clamp. The triceps attachment was splint longitudinally to facilitate the plate placement. The place was selected and provisionally pinned in place. Reduction and hardware placement was confirmed on fluoroscopy. A nonlocking screw was placed in the home run slot to compress across the frac ture. Three screws were then placed along the shaft and an additional locking screw was used to secure the proximal piece. Final fluro showed acceptable alignment of the fracture and placement of the hardware. The triceps split was repaired and tied into the plate. Fascial repair was performed with 0 vicryl. THe skin was closed in a layered fashion with 3.0 vicryl and 4.0 monocryl and skin glue. The arm was placed in a well padded long arm splint. The patient will be kept for observation overnight. She cannot have local anesthetic and may have some pain control issues. She also has a complicated heart and liver history.
== END 2024-10-14 10:54 | disposition home or self-care (01) ==
LOC: OR 11:41 → 4SSUR 15:14 → OR 10-14 10:54
PROVIDERS: ATTEND Orthopaedic Surgery Hand Surgery
DX: S52.021A Displaced fracture of olecranon process without intraarticular extension of right ulna, initial encounter for closed fracture (principal); W01.0XXA Fall on same level from slipping, tripping and stumbling without subsequent striking against object, initial encounter; E07.9 Disorder of thyroid, unspecified; I10 Essential (primary) hypertension; J45.909 Unspecified asthma, uncomplicated; K21.9 Gastro-esophageal reflux disease without esophagitis; G43.909 Migraine, unspecified, not intractable, without status migrainosus; Z87.19 Personal history of other diseases of the digestive system; Z88.6 Allergy status to analgesic agent; Z88.8 Allergy status to other drugs, medicaments and biological substances; Z79.51 Long term (current) use of inhaled steroids; Z79.899 Other long term (current) drug therapy
CPT/HCPCS: 81025; 73070; 24685; C1713; J2250; J0330; J1100; J0690 ×2; J2405; J3010; J3490; J2704; J1171

== ENCOUNTER 2024-10-24 20:45 | Emergency (ER) | payer OTHER ==
[2024-10-24 20:57] VITALS: RESP 18
--- NOTE | 2024-10-24 22:20 | ED ---
Extremity Problem HPI - General Chief complaint: Extremity Problem,Nontraumatic Stated complaint: R Hand Swelling after recent surgery Time Seen by Provider: 10/24/24 21:01 Source: patient, RN notes reviewed Mode of arrival: ambulatory Limitations: no limitations - History of Present Illness Initial comments: This is a 43-year-old female presenting for right hand swelling following surgery x 10 days. Patient endorses having trip and fall at play on 10/06/2024 with injury to her right elbow, requiring surgery which occurred on 10/13/2024. Patient states she began having swelling and bruising in her right hand and forearm 2 days later which has been ongoing for over 1 week now. Patient states she is unable to move her 4 fingers, stating movement causes worse pain (8/10). Denies use of blood thinners. Denies fever, chills, dyspnea, pleuritic chest pain, dizziness, hemoptysis. MD Complaint: extremity swelling Onset/Timin -: days(s) Location: right, upper extremity Radiation: distal Severity scale (1-10): 8 Improves with: immobilization, rest Worsens with: palpation Associated Symptoms: denies other symptoms - Related Data Home Medications Medication Instructions Recorded Confirmed Albuterol Inhaler Unknown Dose 1 - 2 puff INHALATION DIRECTED 10/12/24 10/13/24 PRN Motrin (Unknown Dose) 1 tab PO DIRECTED PRN 10/12/24 10/13/24 Previous Rx's Medication Instructions Recorded traMADol HCl [Ultram] 1 - 2 mg PO Q6HR PRN 3 Days #28 tab 10/14/24 Allergies Allergy/AdvReac Type Severity Reaction Status Date / Time acetaminophen [From Tylenol] Allergy "Per Verified 10/24/24 20:57 Fisher [employer] - do not take." Anesthetics - Amide Type - Allergy Chest Pain Verified 10/24/24 20:57 Select A Anesthetics - Radha Type- Allergy Anaphylaxis Verified 10/24/24 20:57 Parabens aspirin Allergy "Per Verified 10/24/24 20:57 [employer] - do not take." warfarin sodium Allergy Anaphylaxis Verified 10/24/24 20:57 [From Coumadin] peas AdvReac Diarrhea Verified 10/24/24 20:57 Review of Systems ROS Statement: Those systems with pertinent positive or pertinent negative responses have been documented in the HPI. ROS Other: All systems not noted in ROS Statement are negative. 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 Hx migraines. Dry skin."Liver went bad after miscarriage in 2013." History of Any Multi-Drug Resistant Organisms: None Reported Past Surgical History: Coronary Bypass/CABG, Heart Catheterization, Orthopedic Surgery Additional Past Surgical History / Comment(s): D&C November 2013, paracentesis about every 6 months, Fontan 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 7. Past Anesthesia/Blood Transfusion Reactions: Previous Problems w/ Anesthesia Additional Past Anesthesia/Blood Transfusion Reaction / Comment(s): Patient states she had allergic reaction to anesthesia during 2018 heart cath - had numbness in right face and left hand, states anesthesiologists indicated if next procedure, would have to be adjusted. Hx blood transfusion with no problems. Per staff at Dr Bety Perez(Cardiology) [phone] patient had left facial and right hand numbness after a CT Scan without contrast 12/10/2017. Past Psychological History: No Psychological Hx Reported Smoking Status: Never smoker Past Alcohol Use History: Rare Past Drug Use History: None Reported - Past Family History Mother Family Medical History: Asthma, Cancer, Hyperlipidemia, Hypertension Additional Family Medical History / Comment(s): Mother had breast cancer at age 52. Brother(s) Family Medical History: Asthma Father Family Medical History: Asthma General Exam Limitations: no limitations General appearance: alert, in no apparent distress Head exam: Present: atraumatic, normocephalic, normal inspection Eye exam: Present: normal appearance, PERRL, EOMI. Absent: scleral icterus, conjunctival injection, periorbital swelling ENT exam: Present: normal exam, mucous membranes moist Neck exam: Present: normal inspection. Absent: tenderness, meningismus, lymphadenopathy Respiratory exam: Present: normal lung sounds bilaterally. Absent: respiratory distress, wheezes, rales, rhonchi, stridor Cardiovascular Exam: Present: regular rate, normal rhythm, normal heart sounds. Absent: systolic murmur, diastolic murmur, rubs, gallop, clicks GI/Abdominal exam: Present: soft, normal bowel sounds. Absent: distended, tenderness, guarding, rebound, rigid Extremities exam: Present: tenderness, normal capillary refill, other. Absent: pedal edema, joint swelling, calf tenderness Right Shoulder Exam: Present: normal inspection, full ROM Upper Arm exam: Present: normal inspection, full ROM Elbow exam: Present: full ROM, other (Surgical incision site along dorsal aspect of elbow shows no indication of surrounding erythema, discharge. Good alignment of incision site edges with sutures intact). Absent: swelling, abrasion, ecchymosis, deformity, crepitus, dislocation, erythema, effusion Forearm Wrist exam: Present: full ROM, tenderness, swelling, ecchymosis. Absent: abrasion, laceration, deformity, crepitus, dislocation, erythema Hand Wrist exam: Present: tenderness, swelling, ecchymosis, other. Absent: full ROM (LROM of 2nd through 5th digits), abrasion, laceration, deformity, crepitus, dislocation Vascular: Present: normal capillary refill, radial pulse Back exam: Present: normal inspection Neurological exam: Present: alert, oriented X3, CN II-XII intact Psychiatric exam: Present: normal affect, normal mood Skin exam: Present: warm, dry, intact, normal color. Absent: rash Course Vital Signs 10/24/24 10/25/24 20:53 01:29 Temperature 98.5 F 97.8 F Pulse Rate 82 94 Respiratory 18 18 Rate Blood Pressure 124/86 136/85 O2 Sat by Pulse 96 99 Oximetry Medical Decision Making - Medical Decision Making Was pt. sent in by a medical professional or institution (MARIE Riley, MACHINING ENGINEER, urgent care, hospital, or alf...) When possible be specific @ -No Did you speak to anyone other than the patient for history (EMS, parent, family, police, friend...)? What history was obtained from this source @ -No Did you review nursing and triage notes (agree or disagree)? Why? @ -I reviewed and agree with nursing and triage notes Were old charts reviewed (outside hosp., previous admission, EMS record, old EKG, old radiological studies, urgent care reports/EKG's, alf records)? Report findings @ -Surgical notes from 10/14/2024 regarding olecranon fracture and ORIF reviewed. Differential Diagnosis (chest pain, altered mental status, abdominal pain women, abdominal pain men, vaginal bleeding, weakness, fever, dyspnea, syncope, headache, dizziness, GI bleed, back pain, seizure, CVA, palpatations, mental health, musculoskeletal)? @ -Differential Musculoskeletal Muscular strain, contusion, ligament sprain, fracture, arthritis, septic arthritis, bursitis, cellulitis, muscle spasm, nerve compression, DVT, arterial occlusion, herpes zoster, electrolyte abnormality, tumor.... This is not meant to be in all inclusive list EKG interpreted by me (3pts min.). @ -Not done X-rays interpreted by me (1pt min.). @ -None done CT interpreted by me (1pt min.). @ -None done U/S interpreted by me (1pt. min.). @ -RUE Doppler ultrasound shows What testing was considered but not performed or refused? (CT, X-rays, U/S, labs)? Why? @ -None What meds were considered but not given or refused? Why? @ -None Did you discuss the management of the patient with other professionals (professionals i.e. , PA, MACHINING ENGINEER, lab, RT, psych nurse, licensed clinical social worker, marble machine tender, teacher, driver license reviewing officer, telephonic nurse case manager)? Give summary @ -No Was smoking cessation discussed for >3mins.? @ -No Was critical care preformed (if so, how long)? @ -No Were there social determinants of health that impacted care today? How? (Homelessness, low income, unemployed, alcoholism, drug addiction, transportation, low edu. Level, literacy, decrease access to med. care, residential, rehab)? @ -No Was there de-escalation of care discussed even if they declined (Discuss DNR or withdrawal of care, Hospice)? DNR status @ -No What co-morbidities impacted this encounter? (DM, HTN, Smoking, COPD, CAD, Cancer, CVA, ARF, Chemo, Hep., AIDS, mental health diagnosis, sleep apnea, morbid obesity)? @ -None Was patient admitted / discharged? Hospital course, mention meds given and route, prescriptions, significant lab abnormalities, going to OR and other pertinent info. @ -RUE Doppler ultrasound shows no indication of DVT. Patient provided IM Dilaudid with significant relief of pain (08/14). Patient discharged with tramadol starter pack. Advised rest, ice, compression, elevation. Advised follow-up with Dr. Crawley for further evaluation and treatment. Discussed patient with Dr. Nixon. Undiagnosed new problem with uncertain prognosis? @ -No Drug Therapy requiring intensive monitoring for toxicity (Heparin, Nitro, Insulin, Cardizem)? @ -No Were any procedures done? @ -No Diagnosis/symptom? @ -Postsurgical right upper extremity edema Acute, or Chronic, or Acute on Chronic? @ -Acute Uncomplicated (without systemic symptoms) or Complicated (systemic symptoms)? @ -Uncomplicated Side effects of treatment? @ -No Exacerbation, Progression, or Severe Exacerbation? @ -No Poses a threat to life or bodily function? How? (Chest pain, USA, AL, pneumonia, PE, COPD, DKA, ARF, appy, cholecystitis, CVA, Diverticulitis, Homicidal, Suicidal, threat to staff... and all critical care pts) @ -No Disposition Clinical Impression: Postoperative complication, Edema of hand Disposition: HOME SELF-CARE Condition: Good Additional Instructions: Contact Dr. Crawley in morning for further evaluation and treatment. Is patient prescribed a controlled substance at d/c from ED?: No Referrals: Morris Arreola MD [Primary Care Provider] - 1-2 days Cora Crawley [Doctor of Osteopathic Medicine] - 1-2 days Time of Disposition: 01:21
--- NOTE | 2024-10-25 00:12 | US ---
EXAM: US Duplex Right Upper Extremity Veins CLINICAL HISTORY: US Reason: RUE ecchymosis and edema TECHNIQUE: Real-time duplex ultrasound scan of the right upper extremity veins integrating B-mode two-dimensional vascular structure, Doppler spectral analysis, color flow Doppler imaging and compression. COMPARISON: No relevant prior studies available. FINDINGS: Deep veins: Unremarkable. No DVT in the internal jugular, subclavian, axillary, or brachial veins. The veins demonstrate normal color flow, are normally compressible, with normal phasic flow and/or augmentation response. Superficial veins: Unremarkable. No thrombus in the visualized basilic and cephalic veins. Soft tissues: No acute findings. IMPRESSION: Negative right upper extremity duplex venous ultrasound. No evidence of venous thrombosis.
[2024-10-25] MEDS: HYDROmorphone 1 MG/ML 1 ML SYRINGE IM STA (00:27)
[2024-10-25] MEDS: traMADol 50 MG STARTER PACK 3 TAB BTL PO STA (01:29)
[2024-10-25 01:30] VITALS: BP 136/85; PULSE 94; TEMP 97.8
== END 2024-10-25 01:35 | disposition home or self-care (01) ==
LOC: EC 20:45
DX: R22.31 Localized swelling, mass and lump, right upper limb (principal); Z88.6 Allergy status to analgesic agent; Z88.4 Allergy status to anesthetic agent; Z88.8 Allergy status to other drugs, medicaments and biological substances; Z91.018 Allergy to other foods
CPT/HCPCS: 93971; 99283; J1171

== ENCOUNTER 2025-01-12 21:14 | Emergency (ER) | payer MEDICARE, OTHER ==
[2025-01-12 21:21] VITALS: RESP 18
--- NOTE | 2025-01-12 22:03 | ED ---
General Adult HPI - General Chief complaint: Extremity Problem,Nontraumatic Stated complaint: Swelling in left leg Time Seen by Provider: 01/12/25 21:40 Source: patient, RN notes reviewed, old records reviewed Mode of arrival: ambulatory Limitations: no limitations - History of Present Illness Initial comments: 44-year-old female who presents emergency department complaining of left lower extremity erythema and swelling. States that she thinks it started with some sort of bite on her foot approximately 1 week to 2 weeks ago. States that since that time it has been more swollen and has turned more red. Saw her PCP 2 days ago who recommended she come to the ER for evaluation however she waited until today. States she does not plan on staying would like to go home. She was prescribed antibiotics but did not start them as she states she was having a hard time filling the prescription due to insurance issues. Thought that Motrin would cure it. Denies any calf pain. Denies any history of DVTs or blood clots. Denies any fevers or nausea or vomiting. Is up-to-date on tetanus. Does have a history of cardiac surgery as a child. Has no other acute complaints at this time. States she does not have a history of diabetes. [place] des[place] she is not on any form of immunosuppressant therapy. Presents for further evaluation at this time. - Related Data Home Medications Medication Instructions Recorded Confirmed Albuterol Inhaler Unknown Dose 1 - 2 puff INHALATION DIRECTED 10/12/24 10/13/24 PRN Motrin (Unknown Dose) 1 tab PO DIRECTED PRN 10/12/24 10/13/24 Previous Rx's Medication Instructions Recorded traMADol HCl [Ultram] 1 - 2 mg PO Q6HR PRN 3 Days #28 tab 10/14/24 Cephalexin [Keflex] 500 mg PO Q12HR 10 Days #20 cap 01/13/25 Sulfamethox-Tmp 800-160Mg [Bactrim 1 tab PO Q12HR 10 Days #20 tab 01/13/25 DS 800-160 mg] Allergies Allergy/AdvReac Type Severity Reaction Status Date / Time acetaminophen [From Tylenol] Allergy "Per Verified 01/12/25 21:22 Board Member - do not take." Anesthetics - Amide Type - Allergy Chest Pain Verified 01/12/25 21:22 Select A Anesthetics - Radha Type- Allergy Anaphylaxis Verified 01/12/25 21:22 Parabens aspirin Allergy "Per Verified 01/12/25 21:22 Board Member - do not take." warfarin sodium Allergy Anaphylaxis Verified 01/12/25 21:22 [From Coumadin] peas AdvReac Diarrhea Verified 01/12/25 21:22 Review of Systems ROS Statement: Those systems with pertinent positive or pertinent negative responses have been documented in the HPI. Review of Systems: CONST: Denies fever EYES: Denies blurry vision ENT: Denies nasal congestion C/V: Denies Chest pain RESP: Denies shortness of breath GI: Denies abdominal pain : Denies dysuria SKIN: Endorses left lower extremity redness, swelling MSK: Denies joint pain. NEURO: Denies headache ROS Other: All systems not noted in ROS Statement are negative. Past Medical History Past Medical History: Atrial Flutter, Asthma, Hypertension, Liver Disease, Thyroid Disorder Additional Past Medical History / Comment(s): Heart surgery r/t valves as an , ascites. Hx migraines. Dry skin."Liver went bad after miscarriage in 2013." History of Any Multi-Drug Resistant Organisms: None Reported Past Surgical History: Coronary Bypass/CABG, Heart Catheterization, Orthopedic Surgery Additional Past Surgical History / Comment(s): D&C November 2013, paracentesis about every 6 months, Fontan 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 7. Past Anesthesia/Blood Transfusion Reactions: Previous Problems w/ Anesthesia Additional Past Anesthesia/Blood Transfusion Reaction / Comment(s): Patient states she had allergic reaction to anesthesia during 2018 heart cath - had numbness in right face and left hand, states anesthesiologists indicated if next procedure, would have to be adjusted. Hx blood transfusion with no problems. Per staff at Dr Bety Perez(Cardiology) [phone] patient had left facial and right hand numbness after a CT Scan without contrast 12/10/2017. Past Psychological History: No Psychological Hx Reported Smoking Status: Never smoker Past Alcohol Use History: Rare Past Drug Use History: None Reported - Past Family History Mother Family Medical History: Asthma, Cancer, Hyperlipidemia, Hypertension Additional Family Medical History / Comment(s): Mother had breast cancer at age 52. Brother(s) Family Medical History: Asthma Father Family Medical History: Asthma General Exam - General Exam Comments Initial Comments: General: Appears in no acute distress. Afebrile. HEAD: Normal with no signs of head trauma. EYES: PERRLA, EOMI, conjunctiva normal, no discharge. ENT: Hearing grossly intact, normal oropharynx. RESPIRATORY: Clear breath sounds bilaterally. No wheezes, rales, or rhonchi. C/V: Regular rate and rhythm. S1 and S2 auscultated, no edema, peripheral pulses 2+ and intact throughout ABD: Abd is soft, nontender, nondistended EXT: Normal range of motion, no obvious deformity SKIN: Patient has erythema of the left foot in a sock distribution up to her low distal mclaughlin. No obvious fluctuance palpated. It is not warm. It is not elevated. Patient has a healed over what appears to be either abrasion or bite on the medial aspect of her left great toe with no obvious fluctuance or discharge. Foot is swollen. Appears infectious. No significant calf pain. Neurovascular intact throughout the left lower extremity. NEURO: Alert and orient x 4. Limitations: no limitations Course Vital Signs 01/12/25 01/13/25 21:18 01:20 Temperature 97.9 F 97.5 F L Pulse Rate 81 74 Respiratory 18 18 Rate Blood Pressure 120/54 123/77 O2 Sat by Pulse 97 98 Oximetry Medical Decision Making - Medical Decision Making Was pt. sent in by a medical professional or institution (, PA, SET RIDER, urgent care, hospital, or [facility]...) When possible be specific @ -No Did you speak to anyone other than the patient for history (EMS, parent, family, police, friend...)? What history was obtained from this source @ -No Did you review nursing and triage notes (agree or disagree)? Why? @ -I reviewed and agree with nursing and triage notes Were old charts reviewed (outside hosp., previous admission, EMS record, old EKG, old radiological studies, urgent care reports/EKG's, [facility] records)? Report findings @ -No old charts were reviewed Differential Diagnosis (chest pain, altered mental status, abdominal pain women, abdominal pain men, vaginal bleeding, weakness, fever, dyspnea, syncope, headache, dizziness, GI bleed, back pain, seizure, CVA, palpatations, mental health, musculoskeletal)? @ -Cellulitis, DVT, abscess, infection. This list is not all-inclusive. EKG interpreted by me (3pts min.). @ -None done X-rays interpreted by me (1pt min.). @ -Foot x-ray shows soft tissue swelling. CT interpreted by me (1pt min.). @ -None done U/S interpreted by me (1pt. min.). @ -Ultrasound negative for DVT What testing was considered but not performed or refused? (CT, X-rays, U/S, labs)? Why? @ -None What meds were considered but not given or refused? Why? @ -None Did you discuss the management of the patient with other professionals (professionals i.e. , PA, SET RIDER, lab, RT, psych nurse, social media marketer, bench loom weaver, teacher, hydrological technical officer, case specialist)? Give summary @ -No Was smoking cessation discussed for >3mins.? @ -No Was critical care preformed (if so, how long)? @ -No Were there social determinants of health that impacted care today? How? (Homelessness, low income, unemployed, alcoholism, drug addiction, transport ation, low edu. Level, literacy, decrease access to med. care, longterm, rehab)? @ -No Was there de-escalation of care discussed even if they declined (Discuss DNR or withdrawal of care, Hospice)? DNR status @ -No What co-morbidities impacted this encounter? (DM, HTN, Smoking, COPD, CAD, Cancer, CVA, ARF, Chemo, Hep., AIDS, mental health diagnosis, sleep apnea, morbid obesity)? @ -None Was patient admitted / discharged? Hospital course, mention meds given and route, prescriptions, significant lab abnormalities, going to OR and other pertinent info. @ -Patient presents for what appears to be cellulitis of the left lower extremity, but cannot definitively rule out DVT. We will obtain ultrasound of the left lower extremity as well as x-ray to evaluate for osteomyelitis. Basic labs will be obtained. Vitals are within acceptable limits. Patient accepts ibuprofen for analgesia. I did discuss possible admission and patient states she has no desire to be admitted more than like to go home. When I ask about availability of obtaining antibiotics, she states she was unaware that she had t o obtain antibiotics and states she will pay [id number] if needed if her insurance will not cover them. She has not yet started them from what was prescribed by her PCP. She was otherwise agreed in agreement with the above plan. I did discuss possibly administering vancomycin which is a prolonged administration here in the ER but she states she does not want to wait that long and declines.Patient states she is up-to-date on tetanus. Imaging negative for any obvious acute process. Laboratory studies remarkable for normal white blood cell count. I discussed results with the patient. She was still like to go home. Given a dose of Bactrim and Keflex prior to discharge as well as prescription for both. Recommend she fill these prescriptions and take and return to the ER for any worsening symptoms or difficulty with obtaining prescriptions. She was in agreement this plan. Strict return precautions discussed. I will provide the patient with a prescription for Bactrim and Keflex. I instructed the patient to follow up with their PCP in the next 1-3 days.. I explained that the patient should return to the emergency department if they experience any worsening symptoms. Strict return precautions were discussed with the patient. The patient expressed understanding of these instructions. I answered all questions that the patient had. The patient was discharged home in good condition with their prescriptions and follow up information. Undiagnosed new problem with uncertain prognosis? @ -No Drug Therapy requiring intensive monitoring for toxicity (Heparin, Nitro, Insulin, Cardizem)? @ -No Were any procedures done? @ -No Diagnosis/symptom? @ -Cellulitis of the left foot Acute, or Chronic, or Acute on Chronic? @ -Acute Uncomplicated (without systemic symptoms) or Complicated (systemic symptoms)? @ -Uncomplicated Side effects of treatment? @ -None Exacerbation, Progression, or Severe Exacerbation] @ -No Poses a threat to life or bodily function? @ -Unlikely at this time - Lab Data Result diagrams: 01/12/25 22:58 01/12/25 22:58 Lab Results 01/12/25 01/12/25 Range/Units 22:58 22:58 WBC 4.60 (4.50-10.00) 10*3/uL RBC 5.54 H (4.10-5.20) 10*6/uL Hgb 15.0 (12.0-15.0) g/dL Hct 45.5 (37.2-46.3) % MCV 82.1 (80.0-97.0) fL MCH 27.1 (27.0-32.0) pg MCHC 33.0 (32.0-37.0) g/dL Plt Count 144 (140-440) 10*3/uL MPV 10.9 (9.5-12.2) fL Immature Gran % (Auto) 0.4 % Neutrophils % 79.1 % Lymphocytes % 10.2 % Monocytes % 7.0 % Eosinophils % 2.4 % Basophils % 0.9 % Immature Gran # 0.02 (0.00-0.04) 10*3/uL Neutrophils # 3.64 (1.80-7.70) 10*3/uL Lymphocytes # 0.47 L (0.90-5.00) 10*3/uL Monocytes # 0.32 (0.20-1.00) 10*3/uL Eosinophils # 0.11 (0.04-0.35) 10*3/uL Basophils # 0.04 (0.00-0.10) 10*3/uL Sodium 136 L (137-145) mmol/L Potassium 4.3 (3.5-5.1) mmol/L Chloride 98 (98-107) mmol/L Carbon Dioxide 22 (22-30) mmol/L Anion Gap 16 mmol/L BUN 17 (7-17) mg/dL Creatinine 0.61 (0.52-1.04) mg/dL Est GFR (CKD-EPI)AfAm >90 (>60 ml/min/1.73 sqM) Est GFR (CKD-EPI)NonAf >90 (>60 ml/min/1.73 sqM) Glucose 75 (74-99) mg/dL Calcium 9.6 (8.4-10.2) mg/dL Magnesium 2.0 (1.6-2.3) mg/dL Total Bilirubin 1.2 (0.2-1.3) mg/dL AST 40 H (14-36) U/L ALT 18 (4-34) U/L Alkaline Phosphatase 105 (38-126) U/L Total Protein 8.8 H (6.3-8.2) g/dL Albumin 4.9 (3.5-5.0) g/dL Disposition Clinical Impression: Cellulitis Disposition: HOME SELF-CARE Condition: Good Instructions (If sedation given, give patient instructions): Cellulitis (ED) Prescriptions: Sulfamethox-Tmp 800-160Mg [Bactrim DS 800-160 mg] 1 tab PO Q12HR 10 Days #20 tab Cephalexin [Keflex] 500 mg PO Q12HR 10 Days #20 cap Is patient prescribed a controlled substance at d/c from ED?: No Referrals: Morris Arreola MD [Primary Care Provider] - 1-2 days Time of Disposition: 01:10
[2025-01-12] MEDS: IBUPROFEN 400 MG TAB PO STA (23:01)
[2025-01-12] MEDS: SODIUM CHLORIDE 0.9% 500 ML 500 ML IV ONE (23:02)
[2025-01-12 23:12] LABS: Basophils # (A) 0.04 10*3/uL (0.00-0.10); Basophils % (A) 0.9 %; Eosinophils # (A) 0.11 10*3/uL (0.04-0.35); Eosinophils % (A) 2.4 %; HCT 45.5 % (37.2-46.3); HGB 15.0 g/dL (12.0-15.0); Lymphocytes # (A) 0.47 10*3/uL (0.90-5.00); Lymphocytes % (A) 10.2 %; MCH 27.1 pg (27.0-32.0); MCHC 33.0 g/dL (32.0-37.0); MCV 82.1 fL (80.0-97.0); Monocytes # (A) 0.32 10*3/uL (0.20-1.00); Monocytes % (A) 7.0 %; Neutrophils # (A) 3.64 10*3/uL (1.80-7.70); Neutrophils % (A) 79.1 %; Platelet Count 144 10*3/uL (140-440); RBC 5.54 10*6/uL (4.10-5.20); RDW 13.9 % (11.5-14.5); WBC 4.60 10*3/uL (4.50-10.00)
--- NOTE | 2025-01-12 23:56 | XR ---
EXAM: XR Left Foot Complete, 3 or More Views CLINICAL HISTORY: ITS.REASON XR Reason: eval for osteomyelitis TECHNIQUE: Frontal, lateral and oblique views of the left foot. COMPARISON: No relevant prior studies available. FINDINGS: Bones/joints: Unremarkable. No acute fracture. No dislocation. Soft tissues: Moderate dorsal soft tissue swelling. No radiopaque foreign body. IMPRESSION: Moderate dorsal soft tissue swelling.
[2025-01-12 23:57] LABS: ALT 18 U/L (4-34); AST 40 U/L (14-36); African American GFR (CKD) >90 (>60 ml/min/1.73 sqM); Albumin 4.9 g/dL (3.5-5.0); Alkaline Phosphatase 105 U/L (38-126); Anion Gap 16 mmol/L; Blood Urea Nitrogen 17 mg/dL (7-17); Calcium 9.6 mg/dL (8.4-10.2); Carbon Dioxide 22 mmol/L (22-30); Chloride 98 mmol/L (98-107); Glucose 75 mg/dL (74-99); Magnesium 2.0 mg/dL (1.6-2.3); Non-African American GFR(CKD) >90 (>60 ml/min/1.73 sqM); Potassium 4.3 mmol/L (3.5-5.1); Sodium 136 mmol/L (137-145); Total Protein 8.8 g/dL (6.3-8.2)
--- NOTE | 2025-01-13 00:26 | US ---
EXAM: US Duplex Left Lower Extremity Veins CLINICAL HISTORY: ITS.REASON US Reason: eval for dvt TECHNIQUE: Real-time duplex ultrasound scan of the left lower extremity veins integrating B-mode two-dimensional vascular structure, Doppler spectral analysis, color flow Doppler aging and Impression. COMPARISON: No relevant prior studies available. FINDINGS: Deep veins: Unremarkable. No DVT in the visualized common femoral, femoral, proximal deep femoral or popliteal veins. The veins demonstrate normal color flow, are normally compressible, with normal phasic flow and/or augmentation response. Superficial veins: Unremarkable. No thrombus in the visualized great saphenous vein. Soft tissues: No acute findings. No popliteal cyst. IMPRESSION: Normal left lower extremity duplex venous ultrasound.
[2025-01-13] MEDS: SULFAMETHOX-TMP 800-160MG 1 EACH TAB PO STA (01:19)
[2025-01-13] MEDS: CEPHALEXIN 500 MG CAP PO STA (01:19)
[2025-01-13 01:23] VITALS: BP 123/77; PULSE 74; TEMP 97.5
== END 2025-01-13 01:28 | disposition home or self-care (01) ==
LOC: EC 21:14
DX: L03.116 Cellulitis of left lower limb (principal); Z88.4 Allergy status to anesthetic agent; Z88.6 Allergy status to analgesic agent; Z88.8 Allergy status to other drugs, medicaments and biological substances
CPT/HCPCS: 36415; 80053; 83735; 85025; 96360; 96361; 99284